=== PATIENT | female | born 2000 | race Caucasian/White ===

== ENCOUNTER → 2021-03-29 11:09 | Outpatient (CLI) | payer MEDICAID, SELFPAY ==
[2021-03-29 10:20] VITALS: BMI 36.5
[2021-03-29 11:38] LABS: Absolute Lymphocyte Count 3.53 X10^3/uL (0.83-4.51); Absolute Neutrophil Count 3.6 X10^3/uL (2.0-7.7); Basophil# 0.06 X10^3/uL; Basophil% 0.8 % (0-1); Eosinophil# 0.12 X10^3/uL; Eosinophils% 1.5 % (0-5); Hematocrit 42.9 % (37-47); Hemoglobin 13.6 g/dL (12.0-15.0); Lymphocyte # 3.53 X10^3/ul (0.83-4.51); Lymphocyte % 45.5 % (19-41); Mean Corp Hgb Conc 31.7 g/dL (32-36); Mean Corpuscular Hgb 26.6 pg (27.0-32.0); Mean Corpuscular Volume 83.8 fL (81-99); Monocyte# 0.45 X10^3/uL; Monocyte% 5.8 % (0-10); NRBC Flagged by Analyzer 0 % (0-5); Neutrophil # 3.57 X10^3/uL (2.7-7.7); Platelet Count 394 K/mm3 (150-450); RBC Distribution Width CV 13.2 % (11.6-14.6); Red Blood Count 5.12 M/mm3 (4.2-5.4); White Blood Count 7.8 K/mm3 (4.4-11.0)
[2021-03-29 11:51] LABS: Hemoglobin A1c 5.1 % (3.8-5.6)
[2021-03-29 11:56] LABS: Cholesterol 185 mg/dL (200); Follicle Stimulating Hormone 7.8 mIU/mL; High Density Lipoprotein 45 mg/dL; Prolactin 12.1 ng/mL; Thyroid Stim Hormone (TSH) 5.44 uIU/mL (0.358-3.74); Triglycerides 60 mg/dL; Very Low Density Lipoprotein 12 mg/dL (5-40)
[2021-03-29 16:02] LABS: Chlamydia Trachomatis by PCR Negative (Negative); Neisserai gonorrhoeae by PCR Negative (Negative); Probe Check PASS; Sample Adequacy Control PASS; Specimen Processing Control PASS
[2021-03-29 16:31] LABS: HIV - WCH Non-Reactive (Nonreactive); Hepatitis B Surface Antigen Non-Reactive (Nonreactive); Hepatitis C Antibody Non-Reactive (Nonreactive); Syphilis Antibodies Non-reactive
[2021-04-02 13:33] LABS: HSV 1 IgG < 0.91 index (0.00-0.90); HSV 2 IgG < 0.91 index (0.00-0.90); Testosterone Free 2.6 pg/mL (Not Estab.)
== END ==
PROVIDERS: PCP Nurse Practitioner Family; Referring Provider Nurse Practitioner Women's Health; Visit Provider Nurse Practitioner Women's Health
DX: N92.6 Irregular menstruation, unspecified (principal); Z20.2 Contact with and (suspected) exposure to infections with a predominantly sexual mode of transmission
CPT/HCPCS: 36415; 80061; 82627; 83001; 83036; 84146; 84402; 84443; 85025; 86695; 86696; 86703; 86780; 86803; 87340; 87491; 87591; 82626

== ENCOUNTER 2021-04-12 18:10 | Emergency (ER) | payer MEDICAID, SELFPAY ==
[2021-03-29 10:20] VITALS: BMI 36.5
[2021-04-12 18:11] VITALS: BP 136/82; PULSE 56; RESP 16; TEMP 36.9; O2SAT 99; BMI 29.7
[2021-04-12 18:26] LABS: Mucous, Urine 0 SEEN /hpf (<or=2+)
[2021-04-12 18:41] LABS: Color, Urine Yellow (Yellow); Glucose, Dipstick Normal (Normal); Ketone-Dipstick Negative (Negative); Leukocyte Esterase-Dipstick 500 /ul (Negative); Nitrite-Dipstick Negative (Negative); Occult Blood-Urine 150 /ul (Negative); Protein-Dipstick 30 mg/dl (Negative); Specific Gravity, Urine 1.025 (1.002-1.030); Urine Bilirubin Dipstick Negative (Negative); Urine Clarity Clear (Clear); Urine Urobilinogen Normal (Normal)
[2021-04-12 18:42] LABS: Bacteria 1+ /hpf (None Seen); Red Blood Cells-Urine 5-10 SEEN /hpf (0-5); Squamous Epithelial Cells - UA 10-25 SEEN /hpf (5-10); White Blood Cells 10-25 SEEN /hpf (0-5)
--- NOTE | 2021-04-12 18:55 | ED.RN ---
PT STATED SHE WANTED TO GO HOME AND LAY DOWN. STATED SHE WOULD COME BACK IF THE PAIN GOT WORSE.
== END 2021-04-12 18:52 | disposition left against medical advice (07) ==
LOC: ED 19:00
PROVIDERS: PCP Nurse Practitioner Family
DX: Z53.21 Procedure and treatment not carried out due to patient leaving prior to being seen by health care provider (principal)
CPT/HCPCS: 81001

== ENCOUNTER 2021-04-12 20:19 | Emergency (ER) | payer MEDICAID, SELFPAY ==
[2021-04-12 18:11] VITALS: BMI 29.7
[2021-04-12 20:22] VITALS: BP 123/70; PULSE 64; RESP 18; TEMP 36.7; O2SAT 100; BMI 29.7
--- NOTE | 2021-04-12 22:12 | US_ITS ---
EXAM: US ABDOMEN LIMITED, GALLBLADDER : 2000 CLINICAL INDICATION: PAIN TECHNIQUE: Real-time ultrasound of the right upper quadrant with image documentation. This report was created using [employer] report [employer]e-games technology. COMPARISON: None. FINDINGS: LIVER: The liver measures 19.6 cm. The liver is slightly increased in echogenicity. There is a hypoechoic area in the liver and the gallbladder fossa possibly representing focal fatty sparing. GALLBLADDER: The gallbladder wall measures 2 mm. No shadowing gallstone. No pericholecystic fluid. Negative sonographic Smith's sign. COMMON BILE DUCT: The common bile duct measures 3 mm. The proximal common bile duct is within normal limits for the patient's age. RIGHT KIDNEY: The right kidney measures 13.0 x 4.5 x 6.7 cm. There is mild to moderate hydronephrosis. US/Gallbladder IMPRESSION: 1. Mild to moderate right-sided hydronephrosis. 2. Fatty infiltration of the liver. at 0002 Reported and signed by: Malick Jo MD Electronically Signed: Malick Jo MD at 0:01 EDT Tel , Service support ,
[2021-04-12] MEDS: 0.9% Normal Saline 1,000 ML 1000 ML IV (22:32)
[2021-04-12] MEDS: Ketorolac 15 MG/ML Vial IV (22:33)
[2021-04-12] MEDS: Morphine 4 MG/ML Syringe IV ×2 (22:33→23:58)
[2021-04-12] MEDS: Ondansetron 4 MG/2 ML Vial IV (22:33)
[2021-04-12 22:34] LABS: Absolute Lymphocyte Count 2.34 X10^3/uL (0.83-4.51); Absolute Neutrophil Count 11.2 X10^3/uL (2.0-7.7); Basophil# 0.04 X10^3/uL; Basophil% 0.3 % (0-1); Eosinophil# 0.02 X10^3/uL; Eosinophils% 0.1 % (0-5); Hematocrit 41.7 % (37-47); Hemoglobin 13.3 g/dL (12.0-15.0); Lymphocyte # 2.34 X10^3/ul (0.83-4.51); Lymphocyte % 16.3 % (19-41); Mean Corp Hgb Conc 31.9 g/dL (32-36); Mean Corpuscular Hgb 26.7 pg (27.0-32.0); Mean Corpuscular Volume 83.7 fL (81-99); Monocyte# 0.67 X10^3/uL; Monocyte% 4.7 % (0-10); NRBC Flagged by Analyzer 0 % (0-5); Neutrophil # 11.23 X10^3/uL (2.7-7.7); Neutrophil % 78.2 % (47-70); Platelet Count 351 K/mm3 (150-450); RBC Distribution Width CV 13.6 % (11.6-14.6); RBC Distribution Width SD 41.5 fl (35.1-43.9); Red Blood Count 4.98 M/mm3 (4.2-5.4); White Blood Count 14.4 K/mm3 (4.4-11.0)
[2021-04-12 22:41] VITALS: BP 131/73; PULSE 49; RESP 12; O2SAT 99
[2021-04-12 22:43] LABS: Internal QC Validated? YES +Cl - CLEAR BKGD; Pregnancy, Serum, hCG Quali. NEGATIVE Negative
[2021-04-12 22:50] LABS: ALB/GLOB Ratio 1.2 RATIO (0.9-2.4); AST(SGOT) 21 U/L (15-37); Alanine Aminotransfer ALT/SGPT 36 U/L (13-56); Albumin, Serum 4.4 g/dL (3.2-5.0); Alkaline Phosphatase 78 U/L (45-117); Anion Gap 7 (5-15); BUN 18 mg/dL (7-18); BUN/Creat Ratio 15.9 RATIO (10-20); Chloride 105 mmol/L (98-107); Creatinine, Serum 1.13 mg/dL (0.55-1.02); EST Glomerular Filtration Rate 65 mL/min (>60); Est Glom Filt Rate - Afr Amer 79 mL/min (>60); Estimated Creatinine Clearance 77.87 ml/min; Globulin 3.7 g/dL (2.2-4.2); Glucose 91 mg/dL (74-106); Lipase 105 U/L (73-393); Potassium 3.5 mmol/L (3.5-5.1); Protein, Total 8.1 g/dL (6.4-8.2); Sodium Level 137 mmol/L (136-145)
--- NOTE | 2021-04-12 23:59 | ED.VIS.GI ---
HPI HPI - GI History of Present Illness Chief Complaint: Abd Pain Informant: patient and parent Narrative Narrative: Patient presents with nausea vomiting right upper quadrant pain. This started Monday after eating a [employer] breakfast sandwich. Is never really gone away. She has been able to intermittently eat between it but she will also oftentimes vomit. She is trying to get fluids in. She has never vomited blood. She is not having diarrhea. In fact she is really not moving her bowels a lot. However she does not feel as though she needs to move her bowels and does not feel constipated. She denies ever having this before. However, she did have an episode of jaundice 2 or so years ago. She was initially told it was due to hepatitis A and then was told that the hepatitis A screens were negative. However he completely recovered. She states she did not have pain or nausea and vomiting with this but her mother thought she did. Patient really does not drink alcohol although she used to drink moderately. No drug use. She has no cough or trouble breathing. Pain is right upper quadrant and does radiate around to her back at times. She has no urinary symptoms although is urinating slightly less likely due to decreased intake. Patient has no history of intra-abdominal surgery. There is evidently some family history of biliary disease. Patient has had irregular menses. She is on meds for this. She is evidently been on these for several months. She is not having any pelvic symptoms [facility] Medical History Asthma Depression H/O gonorrhea Home Medications Sprintec (28) 0.25 mg-35 mcg tablet 1 tab PO QDAY #28 tab NS 03/29/21 [Rx Last Taken Unknown] albuterol 90 mcg/actuation aerosol inhaler mcg INHALATION 03/29/21 [History Last Taken Unknown] biotin 1 mg capsule 1 mg PO DAILY 03/29/21 [History Last Taken Unknown] biotin 10,000 mcg-keratin 100 mg tablet tab PO 03/29/21 [History Last Taken Unknown] famotidine 10 mg tablet 20 mg PO DAILY 03/29/21 [History Last Taken Unknown] naproxen 500 mg tablet 500 mg PO BID 03/29/21 [History Last Taken Unknown] sertraline 50 mg tablet 50 mg PO DAILY 03/29/21 [History Last Taken Unknown] fluticasone propionate [Flovent Diskus] INHALATION 04/12/21 [History Last Taken Unknown] medroxyprogesterone 10 mg PO DAILY 04/12/21 [History Last Taken Unknown] triamcinolone acetonide INTRANASAL 04/12/21 [History Last Taken Unknown] Allergy/AdvReac Type Severity Reaction Status Date / Time No Known Allergies Allergy Unverified 04/12/21 18:13 Family History Father Diabetes Unknown Heart disease Mother GERD (gastroesophageal reflux disease) Grandfather Heart disease Social History household members: significant other current occupational status: employed current occupation: [email or web address] history of recent travel: No sexually active: Yes Smoking Status: Unknown if ever smoked Electronic Cigarette Use: with nicotine alcohol intake: current alcohol intake frequency: a few times a month substance use type: marijuana what type of physical activity do you participate in: none seatbelt use: always do you feel safe at home: Yes additional social history: single ROS ROS ED Constitutional Constitutional ED: Denies chills or fever(s) ENT ENT ED: Denies sore throat Cardiovascular Cardiovascular: Denies chest pain, palpitations or racing heartbeat Respiratory/Chest Respiratory/Chest: Denies cough, dyspnea or sputum Gastrointestinal Gastrointestinal: Reports abdominal pain, nausea and vomiting; Denies constipation, diarrhea or melena Genitourinary Genitourinary ED: Denies dysuria or hematuria Musculoskeletal Musculoskeletal: Denies arthralgias or myalgias Integumentary Denies rash Endocrine Endocrinology: Denies polydipsia or polyuria Hematologic/Lymphatic Hematologic/Lymphatic: Denies easy bleeding or easy bruising EXAM Physical Exam Const Vital Signs: 04/12/21 20:22 04/12/21 22:41 Temperature 98.1 F Temperature Source Temporal Pulse Rate 64 49 L Respiratory Rate 18 12 Blood Pressure 123/70 H 131/73 H Blood Pressure Mean 87 92 Pulse Ox 100 99 Oxygen Delivery Method Room Air Room Air Positive well nourished, well developed and obese Constitutional Narrative: Patient looks mildly uncomfortable General Appearance ED: well developed Nutritional Appearance: obese HEENT Reports dry mucous membranes HEENT Narrative: Mildly dry mucous membranes Mouth ED: Yes dry mucous membranes Mouth: dry mucous membranes Resp normal respiratory effort and clear to auscultation bilaterally Resp Narrative: No change in symptoms with a deep breath Auscultation: Negative for rales, rhonchi or wheezes Cardio regular rate and regular rhythm GI non-distended GI Narrative: Bowel sounds are normal. Her abdomen is not distended. There is some tenderness toward the right upper quadrant. However, Smith sign is not strongly positive. I get no tenderness lower. Auscultation: normoactive bowel sounds Palpation: soft Back/Spine no CVA tenderness Extremity full ROM General Extremety ED: Negative for edema or tenderness General Extremity: Negative for edema Neuro Sensorium / Orientation: alert and oriented to person Psych mental status grossly normal Skin Skin Narrative: Patient has striae on the abdominal wall but no vesicles or rash. Lesions: no lesions Rashes: no rashes MDM MDM MDM Narrative Medical decision making narrative: Blood work does show an elevated white count. Hemoglobin is normal. Creatinine is just minimally elevated. Liver function test lipase are all normal. is negative. Ultrasound does not show any definitive evidence of biliary disease. Although most of her pain is in the front, it does go significantly to her back and flank. There is suspicion of right hydro-. For this reason CT scan is ordered and the patient will be turned over to oncoming physician. Lab Data Attestation: I reviewed the patient's lab results. Labs: Laboratory Results - last 24 hr 04/12/21 04/12/21 04/12/21 22:25 22:25 22:25 WBC 14.4 H RBC 4.98 Hgb 13.3 Hct 41.7 MCV 83.7 MCH 26.7 L MCHC 31.9 L RDW Std Deviation 41.5 RDW Coeff of Haydee 13.6 Plt Count 351 MPV 9.0 Immature Gran % (Auto) 0.400 Neut % (Auto) 78.2 H Lymph % (Auto) 16.3 L [place] % (Auto) 4.7 Eos % (Auto) 0.1 Baso % (Auto) 0.3 Absolute Neuts (auto) 11.2 H Absolute Lymphs (auto) 2.34 Nucleated RBC % 0 Sodium 137 Potassium 3.5 Chloride 105 Carbon Dioxide 25.0 Anion Gap 7 BUN 18 Creatinine 1.13 H Estim Creat Clear Calc 77.87 Est GFR (MDRD) Af Amer 79 Est GFR (MDRD) Non-Af 65 BUN/Creatinine Ratio 15.9 Glucose 91 Calcium 9.0 Total Bilirubin 0.60 AST 21 ALT 36 Alkaline Phosphatase 78 Total Protein 8.1 Albumin 4.4 Globulin 3.7 Albumin/Globulin Ratio 1.2 Lipase 105 Serum , Qual NEGATIVE Discharge Plan Triage Chief Complaint: Abd Pain ED Provider: Baron Decker Dx/Rx/DC Orders Clinical Impression: Kidney stone on right side Instructions: ED Kidney Stone w/ Colic Prescriptions: No Action sertraline [Zoloft] 50 mg tablet 50 mg PO DAILY RF: 0 biotin 1 mg capsule 1 mg PO DAILY RF: 0 Biotin Plus Keratin 10,000-100 mcg-mg tablet PO RF: 0 naproxen [Naprosyn] 500 mg tablet 500 mg PO BID RF: 0 albuterol 90 mcg/actuation aerosol inhalation RF: 0 famotidine 10 mg tablet 20 mg PO DAILY RF: 0 norgestimate-ethinyl estradiol [Sprintec (28)] 0.25-35 mg-mcg tablet 1 tab PO QDAY Qty: 28 RF: 3 medroxyprogesterone 10 mg tablet 10 mg PO DAILY RF: 0 Flovent Diskus 100 mcg/actuation blister with device INHALATION RF: 0 triamcinolone acetonide 55 mcg aerosol,spray INTRANASAL RF: 0 Primary Care Provider: Giuliana Bullard NP Referrals: Raymon Shane MD [STAFF PHYSICIAN] - As Needed Giuliana Bullard NP, [employer] [Primary Care Provider] - Activity Restrictions/Additional Instructions: You have a 3 mm kidney stone that is almost in your bladder. This should pass without difficulty. Plenty of fluids and rest. Strain your urine for the past stone. You do not need to keep it. Motrin for pain. 600 mg 3-4 times a day for no more than 3 to 5 days. May also use Tylenol for pain. Return to the emergency department if feeling a lot worse, intractable pain, fever or intractable vomiting. Disposition Disposition: Home, Self Care Discharge Date/Time: 04/13/21 01:16
--- NOTE | 2021-04-13 00:09 | CT_ITS ---
EXAM: CT ABDOMEN AND PELVIS WITHOUT INTRAVENOUS CONTRAST : 2000 CLINICAL INDICATION: Pain TECHNIQUE: Helically acquired images were obtained of the abdomen and pelvis without intravenous contrast. This CT exam was performed using one or more of the following dose reduction techniques: automated exposure control, adjustment of the mA and/or kV according to patient size, and/or use of iterative reconstruction technique. This report was created using [employer] report generation technology. COMPARISON: None. FINDINGS: LOWER THORAX: Unremarkable. Lung bases are clear. No cardiomegaly. No significant pericardial effusion. ABDOMEN: LIVER: Liver is diffusely decreased in attenuation compatible with fatty infiltration. GALLBLADDER AND BILE DUCTS: Unremarkable. No calcified gallstones. No gallbladder distention or wall edema. No intra- or extrahepatic biliary ductal dilation. PANCREAS: Unremarkable. No focal cystic mass. SPLEEN: Unremarkable. Normal size without focal cystic or solid mass. ADRENALS: Unremarkable. No nodules. KIDNEYS AND URETERS: There is right-sided hydronephrosis and hydroureter. There is a 3 mm stone at the right UVJ. Normal renal size and position. STOMACH AND BOWEL: Unremarkable. No stomach or bowel distention. No focal inflammatory change. PELVIS: APPENDIX: No evidence of acute appendicitis. BLADDER: Unremarkable. REPRODUCTIVE: Unremarkable as visualized. No mass. ABDOMEN and PELVIS: INTRAPERITONEAL SPACE: Unremarkable. No ascites or other fluid collection. No free air. BONES/JOINTS: Unremarkable. No suspicious lytic or blastic abnormality. SOFT TISSUES: Unremarkable. No discrete abdominal or pelvic wall hernia. VASCULATURE: Unremarkable. Abdominal aorta is non-dilated. LYMPH NODES: There are multiple lymph nodes seen within the mesentery which may represent mesenteric adenitis. CT/Abdomen/Pelvis without Cont IMPRESSION: 1. Obstruction of the right collecting system due to a 3 mm stone at the UVJ. There is moderate right-sided hydronephrosis. 2. Multiple lymph nodes in the mesentery possibly representing mesenteric adenitis. Individualized dose optimization techniques were used for this CT. at 0052 Reported and signed by: Malick Jo MD Electronically Signed: Malick Jo MD at 0:50 EDT Tel , Service support ,
[2021-04-13 00:39] LABS: Bacteria 0 SEEN /hpf (None Seen); Mucous, Urine 0 SEEN /hpf (<or=2+); Red Blood Cells-Urine 0 SEEN /hpf (0-5)
[2021-04-13 00:40] VITALS: BP 127/81; PULSE 52; RESP 12; O2SAT 99
[2021-04-13 00:40] LABS: Color, Urine Yellow (Yellow); Glucose, Dipstick Normal (Normal); Ketone-Dipstick 50 mg/dl (Negative); Leukocyte Esterase-Dipstick Negative /ul (Negative); Nitrite-Dipstick Negative (Negative); Occult Blood-Urine Negative /ul (Negative); Protein-Dipstick Negative (Negative); Urine Bilirubin Dipstick Negative (Negative); Urine Clarity Clear (Clear); Urine Urobilinogen Normal (Normal); Urine pH 6.5 (5.0 - 8.0)
[2021-04-13 00:52] LABS: Squamous Epithelial Cells - UA 0-5 SEEN /hpf (5-10)
[2021-04-13 00:53] LABS: White Blood Cells 0-5 SEEN /hpf (0-5)
--- NOTE | 2021-04-13 01:07 | EDS_ITS ---
HPI HPI - GI History of Present Illness Chief Complaint: Abd Pain Detail of Chief Complaint: Patient turned over to me from initial ER physician evaluation. I am to ree Narrative Narrative: Patient turned over to me to reevaluate the patient and check her CAT scan and urinalysis. PFSH PFSH Medical History Asthma Depression H/O gonorrhea Home Medications Sprintec (28) 0.25 mg-35 mcg tablet 1 tab PO QDAY #28 tab NS 03/29/21 [Rx Last Taken Unknown] albuterol 90 mcg/actuation aerosol inhaler mcg INHALATION 03/29/21 [History Last Taken Unknown] biotin 1 mg capsule 1 mg PO DAILY 03/29/21 [History Last Taken Unknown] biotin 10,000 mcg-keratin 100 mg tablet tab PO 03/29/21 [History Last Taken Unknown] famotidine 10 mg tablet 20 mg PO DAILY 03/29/21 [History Last Taken Unknown] naproxen 500 mg tablet 500 mg PO BID 03/29/21 [History Last Taken Unknown] sertraline 50 mg tablet 50 mg PO DAILY 03/29/21 [History Last Taken Unknown] fluticasone propionate [Flovent Diskus] INHALATION 04/12/21 [History Last Taken Unknown] medroxyprogesterone 10 mg PO DAILY 04/12/21 [History Last Taken Unknown] triamcinolone acetonide INTRANASAL 04/12/21 [History Last Taken Unknown] Allergy/AdvReac Type Severity Reaction Status Date / Time No Known Allergies Allergy Unverified 04/12/21 18:13 Family History Father Diabetes Unknown Heart disease Mother GERD (gastroesophageal reflux disease) Grandfather Heart disease Social History household members: significant other current occupational status: employed current occupation: [email or web address] history of recent travel: No sexually active: Yes Smoking Status: Unknown if ever smoked Electronic Cigarette Use: with nicotine alcohol intake: current alcohol intake frequency: a few times a month substance use type: marijuana what type of physical activity do you participate in: none seatbelt use: always do you feel safe at home: Yes additional social history: single EXAM Physical Exam Const Vital Signs: 04/12/21 20:22 04/12/21 22:41 04/13/21 00:40 Temperature 98.1 F Temperature Source Temporal Pulse Rate 64 49 L 52 L Respiratory Rate 18 12 12 Blood Pressure 123/70 H 131/73 H 127/81 H Blood Pressure Mean 87 92 96 Pulse Ox 100 99 99 Oxygen Delivery Method Room Air Room Air Room Air MDM MDM MDM Narrative Medical decision making narrative: Patient turned over to me by the afternoon physician Dr. Alec Decker. Prior history and physical per his note. I did review the patient's labs her white count was 14. Hemoglobin unremarkable. Electrolytes unremarkable normal gap. Creatinine 1.1. Liver enzymes and lipase were normal. The was negative. Urinalysis was negative there is no signs of infection nor blood. Right upper quadrant ultrasound was negative. CT flank study showed a right distal ureter UVJ ureteral stone 3 mm with hydronephrosis and hydroureter. Consistent with her symptoms. Repeat exam patient is doing well at 1:08 AM. I discussed all test results with both her and I believe her mother at bedside. She does not want narcotic medication for home she will use Tylenol and Motrin. Fluids and rest. Strain her urine. Follow-up if not improving. Lab Data Lab results narrative: CBC White count of 14.4. Hemoglobin 13. Electrolytes unremarkable. Normal gap. Creatinine 1.1. Liver enzymes normal. Lipase normal. negative. UA negative. CT flank showing a distal right 3 mm UVJ stone with hydronephrosis and hydroureter. Labs: Laboratory Results - last 24 hr 04/12/21 04/12/21 04/12/21 22:25 22:25 22:25 WBC 14.4 H RBC 4.98 Hgb 13.3 Hct 41.7 MCV 83.7 MCH 26.7 L MCHC 31.9 L RDW Std Deviation 41.5 RDW Coeff of Haydee 13.6 Plt Count 351 MPV 9.0 Immature Gran % (Auto) 0.400 Neut % (Auto) 78.2 H Lymph % (Auto) 16.3 L [place] % (Auto) 4.7 Eos % (Auto) 0.1 Baso % (Auto) 0.3 Absolute Neuts (auto) 11.2 H Absolute Lymphs (auto) 2.34 Nucleated RBC % 0 Sodium 137 Potassium 3.5 Chloride 105 Carbon Dioxide 25.0 Anion Gap 7 BUN 18 Creatinine 1.13 H Estim Creat Clear Calc 77.87 Est GFR (MDRD) Af Amer 79 Est GFR (MDRD) Non-Af 65 BUN/Creatinine Ratio 15.9 Glucose 91 Calcium 9.0 Total Bilirubin 0.60 AST 21 ALT 36 Alkaline Phosphatase 78 Total Protein 8.1 Albumin 4.4 Globulin 3.7 Albumin/Globulin Ratio 1.2 Lipase 105 Serum , Qual NEGATIVE Urine Color Urine Clarity Urine pH Ur Specific [place] Urine Protein Urine Glucose (UA) Urine Ketones Urine Occult Blood Urine Nitrite Urine Bilirubin Urine Urobilinogen Ur Leukocyte Esterase Urine RBC Urine WBC Ur Squamous Epith Cells Urine Bacteria Urine Mucus 04/13/21 00:34 WBC RBC Hgb Hct MCV MCH MCHC RDW Std Deviation RDW Coeff of Haydee Plt Count MPV Immature Gran % (Auto) Neut % (Auto) Lymph % (Auto) [place] % (Auto) Eos % (Auto) Baso % (Auto) Absolute Neuts (auto) Absolute Lymphs (auto) Nucleated RBC % Sodium Potassium Chloride Carbon Dioxide Anion Gap BUN Creatinine Estim Creat Clear Calc Est GFR (MDRD) Af Amer Est GFR (MDRD) Non-Af BUN/Creatinine Ratio Glucose Calcium Total Bilirubin AST ALT Alkaline Phosphatase Total Protein Albumin Globulin Albumin/Globulin Ratio Lipase Serum , Qual Urine Color Yellow Urine Clarity Clear Urine pH 6.5 Ur Specific [place] 1.020 Urine Protein Negative Urine Glucose (UA) Normal Urine Ketones 50 H Urine Occult Blood Negative Urine Nitrite Negative Urine Bilirubin Negative Urine Urobilinogen Normal Ur Leukocyte Esterase Negative Urine RBC 0 SEEN Urine WBC 0-5 SEEN Ur Squamous Epith Cells 0-5 SEEN Urine Bacteria 0 SEEN Urine Mucus 0 SEEN Radiography Diagnostic Testing: Radiology Impression Gallbladder Ultrasound 04/12/21 22:12 IMPRESSION: 1. Mild to moderate right-sided hydronephrosis. 2. Fatty infiltration of the liver. at 0002 Reported and signed by: Malick Jo MD Electronically Signed: Malick Jo MD at 0:01 EDT Tel , Service support , Abdomen/Pelvis CT 04/13/21 00:09 IMPRESSION: 1. Obstruction of the right collecting system due to a 3 mm stone at the UVJ. There is moderate right-sided hydronephrosis. 2. Multiple lymph nodes in the mesentery possibly representing mesenteric adenitis. Individualized dose optimization techniques were used for this CT. at 0052 Reported and signed by: Malick Jo MD Electronically Signed: Malick Jo MD at 0:50 EDT Tel , Service support , Discharge Plan Triage Chief Complaint: Abd Pain ED Provider: Baron Decker Dx/Rx/DC Orders Clinical Impression: Kidney stone on right side Instructions: ED Kidney Stone w/ Colic Prescriptions: No Action sertraline [Zoloft] 50 mg tablet 50 mg PO DAILY RF: 0 biotin 1 mg capsule 1 mg PO DAILY RF: 0 Biotin Plus Keratin 10,000-100 mcg-mg tablet PO RF: 0 naproxen [Naprosyn] 500 mg tablet 500 mg PO BID RF: 0 albuterol 90 mcg/actuation aerosol inhalation RF: 0 famotidine 10 mg tablet 20 mg PO DAILY RF: 0 norgestimate-ethinyl estradiol [Sprintec (28)] 0.25-35 mg-mcg tablet 1 tab PO QDAY Qty: 28 RF: 3 medroxyprogesterone 10 mg tablet 10 mg PO DAILY RF: 0 Flovent Diskus 100 mcg/actuation blister with device INHALATION RF: 0 triamcinolone acetonide 55 mcg aerosol,spray INTRANASAL RF: 0 Primary Care Provider: Giuliana Bullard NP Referrals: Raymon Shane MD [STAFF PHYSICIAN] - As Needed Giuliana Bullard NP, [employer] [Primary Care Provider] - Activity Restrictions/Additional Instructions: You have a 3 mm kidney stone that is almost in your bladder. This should pass without difficulty. Plenty of fluids and rest. Strain your urine for the past stone. You do not need to keep it. Motrin for pain. 600 mg 3-4 times a day for no more than 3 to 5 days. May also use Tylenol for pain. Return to the emergency department if feeling a lot worse, intractable pain, fever or intractable vomiting. Disposition Disposition: Home, Self Care
== END 2021-04-13 01:16 | disposition home or self-care (01) ==
PROVIDERS: Emergency Provider Emergency Medicine; PCP Nurse Practitioner Family
DX: N13.2 Hydronephrosis with renal and ureteral calculous obstruction (principal); E66.9 Obesity, unspecified; F32.9 Major depressive disorder, single episode, unspecified; J45.909 Unspecified asthma, uncomplicated; Z79.899 Other long term (current) drug therapy
CPT/HCPCS: 74176; 76705; 80053; 81001; 83690; 84703; 85025; 96361; 96374; 96375; 96376; 99285; J7030; A4216; J2405

== ENCOUNTER → 2022-03-15 | Outpatient (CLI) | payer MEDICAID, SELFPAY ==
[2022-03-15 18:17] LABS: Glucose Challenge Gest 1H 50g 122 mg/dL (70-140); Hematocrit 34.3 % (37-47); Mean Corp Hgb Conc 32.1 g/dL (32-36); Mean Corpuscular Hgb 26.5 pg (27.0-32.0); Mean Corpuscular Volume 82.7 fL (81-99); Mean Platelet Vol. 9.8 fl (6.2-12.0); Platelet Count 324 K/mm3 (150-450); RBC Distribution Width CV 13.3 % (11.6-14.6); Red Blood Count 4.15 M/mm3 (4.2-5.4); White Blood Count 10.4 K/mm3 (4.4-11.0)
== END | disposition home or self-care (01) ==
LOC: WOBLAB 15:07
PROVIDERS: PCP Nurse Practitioner Family; Visit Provider Obstetrics & Gynecology
DX: Z34.83 Encounter for supervision of other normal pregnancy, third trimester (principal)
CPT/HCPCS: 36415; 82950; 85027

== ENCOUNTER → 2022-04-28 | Outpatient (CLI) | payer MEDICAID, SELFPAY | END | disposition home or self-care (01) | LOC: LABSPEC 04-29 08:41 | PROVIDERS: PCP Nurse Practitioner Family; Visit Provider Obstetrics & Gynecology | DX: Z36.85 Encounter for antenatal screening for Streptococcus B (principal) | CPT/HCPCS: 87081 ==

== ENCOUNTER 2022-05-25 21:40 | Inpatient (IN) | payer MEDICAID, SELFPAY ==
[2022-05-25] VITALS (7 sets, daily range): BP systolic 124–138; BP diastolic 78–93; PULSE 81–114; TEMP 36.4–36.8; O2SAT 97–99; BMI 37.3
[2022-05-25] MEDS: 0.9% Saline Lock 10 ML Syringe IV (19:40)
[2022-05-25 19:58] LABS: Hematocrit 34.5 % (37-47); Hemoglobin 10.3 g/dL (12.0-15.0); Mean Corp Hgb Conc 29.9 g/dL (32-36); Mean Corpuscular Hgb 22.4 pg (27.0-32.0); Mean Corpuscular Volume 75.2 fL (81-99); Mean Platelet Vol. 9.8 fl (6.2-12.0); Platelet Count 347 K/mm3 (150-450); RBC Distribution Width SD 42.9 fl (35.1-43.9); Red Blood Count 4.59 M/mm3 (4.2-5.4); White Blood Count 11.2 K/mm3 (4.4-11.0)
--- NOTE | 2022-05-25 19:59 | PCM.HP.BLA ---
History and Physical Date of Admission: 05/25/22 Chief complaint: Induction of labor for gestational hypertension History present illness: 21-year-old G1, P0 at 40 weeks and 4 days with AMADOR 05/21/2022 arrives with vaginal bleeding found to have elevated blood pressures and headache. Denies nausea vomiting, right upper quadrant pain. Patient states good movement. Central history: G1: Current Past medical history: None Medications: vitamin Past surgical history: None Social history: Former smoker, denies alcohol or drug use Allergies: No known drug allergies Family history: Denies history DVT or PE Review of systems: Besides above pertinent positives a full review of systems was performed and found to be negative Physical exam: Vitals: Blood pressure 140/93 pulse 73 temperature 97.9 ?F General: Normal-appearing no acute distress none HEENT: Normocephalic/atraumatic no cervical lymphadenopathy, pupils equal round and reactive to light Cardiac/respiratory: No successor muscles, nonlabored breathing Abdomen: Soft, nontender, negative right upper quadrant pain Extremities: No peripheral edema normal peripheral pulses. Negative clonus bilaterally Psych: Normal affect normal demeanor nonpressured speech Labs: White blood cell count 11.2 hemoglobin 10.3 hematocrit 34.5% platelets 347. Creatinine 0.63. Total bilirubin 0.3. AST 14 ALT 13. LDH 161. Urine protein creatinine ratio 0.2. Blood type a positive antibody negative Assessment plan: 21-year-old at 40 weeks and 4 days arrived to triage with elevated blood pressures and headache that resolved with Tylenol. Remained asymptomatic but with isolated elevated blood pressures admitted for induction of labor and as of now diagnosed with gestational hypertension based on blood pressures nonsevere greater than 4 hours apart. Labs within normal limits. Remains asymptomatic. We will continue to monitor for severe symptoms and blood pressures and treat appropriately. Cytotec induction. GBS negative. Anesthesia to see.
[2022-05-25] MEDS: Acetaminophen 500 MG Tablet 1000 MG PO (20:00)
[2022-05-25 20:24] LABS: ALB/GLOB Ratio 0.6 RATIO (0.9-2.4); AST(SGOT) 12 U/L (15-37); Alanine Aminotransfer ALT/SGPT 12 U/L (13-56); Albumin, Serum 2.5 g/dL (3.2-5.0); Alkaline Phosphatase 162 U/L (45-117); Anion Gap 9 (5-15); BUN 9 mg/dL (7-18); BUN/Creat Ratio 14.9 RATIO (10-20); Chloride 108 mmol/L (98-107); EST Glomerular Filtration Rate 133 mL/min (>60); Est Glom Filt Rate - Afr Amer 161 mL/min (>60); Estimated Creatinine Clearance 150.88 ml/min; Glucose 98 mg/dL (74-106); LDH 161 U/L (84-246); Potassium 3.8 mmol/L (3.5-5.1); Protein, Total 6.5 g/dL (6.4-8.2); Sodium Level 140 mmol/L (136-145)
[2022-05-25 20:37] LABS: Mucous, Urine 0 SEEN /hpf (<or=2+); Red Blood Cells-Urine 0 SEEN /hpf (0-5)
[2022-05-25 20:43] LABS: Color, Urine Yellow (Yellow); Glucose, Dipstick Normal (Normal); Ketone-Dipstick Negative (Negative); Leukocyte Esterase-Dipstick 100 /ul (Negative); Nitrite-Dipstick Negative (Negative); Occult Blood-Urine 250 /ul (Negative); Protein-Dipstick 15 mg/dl (Negative); Urine Bilirubin Dipstick Negative (Negative); Urine Clarity Sl. Cloudy (Clear); Urine Urobilinogen Normal (Normal)
[2022-05-25 20:57] LABS: Bacteria 1+ /hpf (None Seen); Squamous Epithelial Cells - UA 0-5 SEEN /hpf (5-10); White Blood Cells 0-5 SEEN /hpf (0-5)
[2022-05-25 21:22] LABS: Protein:Creat Ratio 204 mg/g CRE (0-200)
[2022-05-25 21:32] LABS: AST(SGOT) 14 U/L (15-37); Alanine Aminotransfer ALT/SGPT 13 U/L (13-56); Creatinine, Serum 0.63 mg/dL (0.55-1.02); EST Glomerular Filtration Rate 127 mL/min (>60); Est Glom Filt Rate - Afr Amer 154 mL/min (>60); Estimated Creatinine Clearance 143.69 ml/min; Uric Acid 4.3 mg/dL (2.6-6.0)
[2022-05-25] MEDS: miSOPROStol 25 MCG TABLET VAGINAL (23:04)
[2022-05-26] VITALS (48 sets, daily range): BP systolic 121–142; BP diastolic 69–93; PULSE 56–93; TEMP 36.2–37.6; O2SAT 92–100
[2022-05-26] MEDS: miSOPROStol 25 MCG TABLET VAGINAL ×2 (03:09→08:56)
--- NOTE | 2022-05-26 08:20 | PN.OBGYN_ITS ---
Subjective Subjective No overnight complaints. Denies headache, visual change, chest pain, shortness of breath, nausea vomiting, right upper quadrant pain. Patient does not feel contractions. Objective Data Objective Data Vital Signs: Vital Signs Temp Pulse BP Pulse Ox 97.9 F 86 135/72 H 97 05/26/22 07:28 05/26/22 08:12 05/26/22 08:12 05/26/22 03:02 Weight: 245 lb 6 oz Body Mass Index (BMI) 37.3 Lab / Micro Data Result Diagrams: 05/25/22 19:40 05/25/22 19:40 Labs: Laboratory Results - last 24 hr 05/25/22 19:40: WBC 11.2 H, RBC 4.59, Hgb 10.3 L, Hct 34.5 L, MCV 75.2 L, MCH 22.4 L, MCHC 29.9 L, RDW Std Deviation 42.9, RDW Coeff of [place] 16.0 H, Plt Count 347, MPV 9.8 05/25/22 19:40: Sodium 140, Potassium 3.8, Chloride 108 H, Carbon Dioxide 23.0, Anion Gap 9, BUN 9, Creatinine 0.60, Estim Creat Clear Calc 150.88, Est GFR (MDRD) Af Amer 161, Est GFR (MDRD) Non-Af 133, BUN/Creatinine Ratio 14.9, Glucose 98, Calcium 9.0, Total Bilirubin 0.30, AST 12 L, ALT 12 L, Alkaline Ph osphatase 162 H, Lactate Dehydrogenase 161, Total Protein 6.5, Albumin 2.5 L, Globulin 4.0, Albumin/Globulin Ratio 0.6 L 05/25/22 19:40: Blood Type A POSITIVE, Antibody Screen NEGATIVE 05/25/22 19:40: Creatinine 0.63, Estim Creat Clear Calc 143.69, Est GFR (MDRD) Af Amer 154, Est GFR (MDRD) Non-Af 127, Uric Acid 4.3, AST 14 L, ALT 13 05/25/22 20:10: Urine Color Yellow, Urine Clarity Sl. Cloudy, Urine pH 6.0, Ur Specific [place] 1.010, Urine Protein 15 H, Urine Glucose (UA) Normal, Urine Ketones Negative, Urine Occult Blood 250 H, Urine Nitrite Negative, Urine Bilirubin Negative, Urine Urobilinogen Normal, Ur Leukocyte Esterase 100 H, Urine RBC 0 SEEN, Urine WBC 0-5 SEEN, Ur Squamous Epith Cells 0-5 SEEN, Urine Bacteria 1+, Urine Mucus 0 SEEN 05/25/22 20:10: U Random Total Protein 11.0, Urine Creatinine 53.80, Protein/Creatinin Ratio 204 H Micro: Microbiology 05/25/22 22:00 Nasal Secretion SARS-CoV-2 Antigen (Rapid) - Final Physical Exam Const alert, oriented x3, no apparent distress, average body habitus, healthy appearing and well nourished HEENT normocephalic and moist oral mucous membranes Eyes PERRL Neck full ROM Resp normal respiratory effort, no retractions and no use of accessory muscles GI GI Narrative: Soft, nontender, gravid. Negative right upper quadrant pain Extremity normal to inspection, full ROM and no clubbing, cyanosis or edema Extremity Narrative: Negative clonus bilaterally Neuro moves all extremities and no focal motor deficits Psych mental status grossly normal, affect normal, speech normal and activity/motor behavior normal Assessment & Plan (1) : PLAN: Patient seen and examined. Remains asymptomatic. Blood pressure is now diagnostic of gestational hypertension. Continue Cytotec induction will transi tion to Pitocin
[2022-05-26] MEDS: 0.9% Saline Lock 10 ML Syringe IV (13:44)
[2022-05-26] MEDS: Lactated Ringers 1,000 ML 50 ML IV (13:46)
[2022-05-26] MEDS: Oxytocin 30 units/NS 500 ml 30 UNITS/500 ML IV.SOLN IV (14:07)
--- NOTE | 2022-05-26 17:39 | PN.OBGYN_ITS ---
Subjective Subjective Feeling some contractions otherwise comfortable Objective Data Objective Data Vital Signs: Vital Signs Temp Pulse BP Pulse Ox 97.2 F L 77 134/86 H 99 05/26/22 16:00 05/26/22 16:01 05/26/22 16:01 05/26/22 10:09 Weight: 245 lb 6 oz Body Mass Index (BMI) 37.3 Intake & Output: Intake and Output for Last 24 Hours 05/24/22 05/25/22 05/26/22 23:59 23:59 23:59 Intake Total 16.24 / 16.24 Balance 16.24 / 16.24 Lab / Micro Data Result Diagrams: 05/25/22 19:40 05/25/22 19:40 Labs: Laboratory Results - last 24 hr 05/25/22 19:40: WBC 11.2 H, RBC 4.59, Hgb 10.3 L, Hct 34.5 L, MCV 75.2 L, MCH 22.4 L, MCHC 29.9 L, RDW Std Deviation 42.9, RDW Coeff of [place] 16.0 H, Plt Count 347, MPV 9.8 05/25/22 19:40: Sodium 140, Potassium 3.8, Chloride 108 H, Carbon Dioxide 23.0, Anion Gap 9, BUN 9, Creatinine 0.60, Estim Creat Clear Calc 150.88, Est GFR (MDRD) Af Amer 161, Est GFR (MDRD) Non-Af 133, BUN/Creatinine Ratio 14.9, Glucose 98, Calcium 9.0, Total Bilirubin 0.30, AST 12 L, ALT 12 L, Alkaline Phosphatase 162 H, Lactate Dehydrogenase 161, Total Protein 6.5, Albumin 2.5 L, Globulin 4.0, Albumin/Globulin Ratio 0.6 L 05/25/22 19:40: Blood Type A POSITIVE, Antibody Screen NEGATIVE 05/25/22 19:40: Creatinine 0.63, Estim Creat Clear Calc 143.69, Est GFR (MDRD) Af Amer 154, Est GFR (MDRD) Non-Af 127, Uric Acid 4.3, AST 14 L, ALT 13 05/25/22 20:10: Urine Color Yellow, Urine Clarity Sl. Cloudy, Urine pH 6.0, Ur Specific [place] 1.010, Urine Protein 15 H, Urine Glucose (UA) Normal, Urine Ketones Negative, Urine Occult Blood 250 H, Urine Nitrite Negative, Urine Bilirubin Negative, Urine Urobilinogen Normal, Ur Leukocyte Esterase 100 H, Urine RBC 0 SEEN, Urine WBC 0-5 SEEN, Ur Squamous Epith Cells 0-5 SEEN, Urine Bacteria 1+, Urine Mucus 0 SEEN 05/25/22 20:10: U Random Total Protein 11.0, Urine Creatinine 53.80, Protein/Creatinin Ratio 204 H Micro: Microbiology 05/25/22 22:00 Nasal Secretion SARS-CoV-2 Antigen (Rapid) - Final Physical Exam Const alert, oriented x3, no apparent distress, average body habitus, healthy appearing and well nourished HEENT normocephalic and moist oral mucous membranes Eyes PERRL Neck full ROM Resp normal respiratory effort, no retractions and no use of accessory muscles GI GI Narrative: Soft, nontender, good Narrative: Cervical exam: /-3. AROM thick meconium. IUPC and FSE placed Extremity normal to inspection, full ROM and no clubbing, cyanosis or edema Skin no rashes or lesions noted and no wounds Neuro moves all extremities and no focal motor deficits Psych mental status grossly normal, affect normal, speech normal and activity/motor behavior normal Assessment & Plan (1) : PLAN: Patient seen and examined. AROM thick meconium. Educated patient on meconium, director of home health services to be at delivery. Continue titrate Pitocin
[2022-05-26] MEDS: LACTATED RINGERS 500 ML 999 ML IV ×3 (17:53→22:20)
[2022-05-26] MEDS: fentaNYL-bupivacaine (epidural) 100 ML BAG EPIDURAL (20:22)
[2022-05-27] VITALS (27 sets, daily range): BP systolic 101–131; BP diastolic 50–86; PULSE 56–218; RESP 16–20; TEMP 36.2–37.3; O2SAT 96–100
[2022-05-27] MEDS: Lactated Ringers 1,000 ML 200 ML IV (00:07)
[2022-05-27] MEDS: Acetaminophen 500 MG Tablet PO (00:17)
[2022-05-27] MEDS: fentaNYL-bupivacaine (epidural) 100 ML BAG EPIDURAL (01:00)
[2022-05-27] MEDS: Ondansetron 4 MG/2 ML Vial IV (03:15)
[2022-05-27] MEDS: Oxytocin 30 units/NS 500 ml 30 UNITS/500 ML IV.SOLN 334 UNITS IV (04:12)
[2022-05-27] MEDS: Methylergonovine 0.2 MG/ML Ampul IM (04:14)
--- NOTE | 2022-05-27 04:26 | OP.PCM_ITS ---
Vaginal Delivery Findings Description of Procedure: Normal spontaneous vaginal delivery of a viable female , vertex SAFIA. Head and shoulders delivered with ease. Cord cut clamped. Baby handed off to patient. Placenta delivered via cord traction and fundal massage. Initial atony noticed, Methergine IM given and Pitocin IV. Firm uterus noted. First- degree midline perineal laceration noted and repaired in typical fashion. EBL 400 cc Apgars 8/9 signals intelligence analyst present for delivery.
[2022-05-27] MEDS: 0.9% Saline Lock 10 ML Syringe IV (06:47)
[2022-05-27] MEDS: Acetaminophen 500 MG Tablet 1000 MG PO ×2 (08:17→21:34)
[2022-05-27] MEDS: Ibuprofen 600 MG Tablet PO (18:02)
[2022-05-28 00:15] VITALS: BP 116/68; PULSE 81; RESP 16; TEMP 36.5; O2SAT 97
--- NOTE | 2022-05-28 00:46 | PN.OBGYN_ITS ---
Subjective Subjective Soreness controlled with Motrin and Tylenol. Lochia minimal. Working on breast-feeding. Objective Data Objective Data Vital Signs: Vital Signs Temp Pulse Resp BP Pulse Ox O2 Del Method 97.2 F L 89 16 128/81 H 97 Room Air 05/27/22 15:24 05/27/22 15:24 05/27/22 15:24 05/27/22 15:24 05/27/22 15:24 05/27/22 15:24 Oxygen Delivery Method Room Air Weight: 111.3 kg Body Mass Index (BMI) 37.3 Intake & Output: Intake and Output for Last 24 Hours 05/26/22 05/27/22 05/28/22 23:59 23:59 23:59 Intake Total 2914.34 / 3138.51 1564.57 / 1564.57 Output Total 450 / 450 2200 / 2200 Balance 2464.34 / 2688.51 -635.43 / -635.43 Lab / Micro Data Result Diagrams: 05/25/22 19:40 05/25/22 19:40 Micro: Microbiology 05/25/22 22:00 Nasal Secretion SARS-CoV-2 Antigen (Rapid) - Final Physical Exam Const alert, oriented x3 and no apparent distress HEENT normocephalic Head and Scalp: atraumatic Neck full ROM Resp normal respiratory effort Cardio regular rate GI normal to inspection, nondistended, normoactive bowel sounds GI Narrative: Uterus 2 cm below umbilicus Back/Spine normal ROM Extremity normal to inspection Extremity Narrative: Minimal pedal edema Neuro no focal motor deficits and no sensory deficits noted Psych mental status grossly normal and affect normal Assessment & Plan (1) Vaginal delivery: PLAN: day 1 status post . Complicated by gestational hype rtension, blood pressure since delivery have been within normal limits. Asymptomatic. Discussed blood pressure monitoring. Will consider home-going this evening if blood pressures continue to be low normal. Otherwise discharge home tomorrow. (2) Gestational hypertension:
--- NOTE | 2022-05-28 00:47 | DCINST_ITS ---
Discharge Instructions Diet Discharge Diet: No restrictions Activity Discharge Activity: Return to Normal Activity and May Shower May resume sexual activity in: 4-6 weeks Weight Bearing Status: Weight bearing as tolerated Lifting Restrictions: No greater than 25 pounds Dressing / Incision Call your doctor if you observe: Fever of 101 or Higher, Change in Color, Inability to urinate, Using more than 1 pad per hour, Shortness of breath, Dizziness, Swelling in the ankles, Chest pain and Calf discomfort Follow Up Care Please Follow Up With: Eagle Nunez MD When: 1 week RN BP check and 4 to 6-week visit Test Results: Test results from this visit will be discussed in further detail at your follow- up appointment, if applicable. Discharge Plan Admission Admit Date/Time: 05/25/22 21:40 Primary Reason for Your Visit: Vaginal delivery Attending Provider: Eagle Nunez Primary Care Provider: Giuliana Bullard NP Discharge Orders/Prescriptions Prescriptions: No Action 1 mg Tablet 1 tab PO DAILY Referrals / Follow Up: Giuliana Bullard NP, [facility] [employer] [Primary Care Provider] - Disposition Disposition (needs filled in before D/C Order can be placed): Home, Self Care
[2022-05-28] MEDS: Ibuprofen 600 MG Tablet PO ×2 (02:00→15:54)
[2022-05-28 06:09] VITALS: BP 119/74; PULSE 73; RESP 16; TEMP 36.2; O2SAT 99
[2022-05-28 08:22] VITALS: BP 108/66; PULSE 76; RESP 16; TEMP 36.2; O2SAT 98
[2022-05-28 11:45] VITALS: BP 99/72; PULSE 72; RESP 16; TEMP 36.5; O2SAT 100
== END 2022-05-28 18:00 | disposition home or self-care (01) | DRG 560 ==
LOC: WPOUT 21:42 → WP 21:42
PROVIDERS: Admitting Provider Obstetrics & Gynecology; PCP Nurse Practitioner Family; Visit Provider Obstetrics & Gynecology
DX: O13.4 Gestational [pregnancy-induced] hypertension without significant proteinuria, complicating childbirth (principal); Z37.0 Single live birth; O70.0 First degree perineal laceration during delivery; O77.0 Labor and delivery complicated by meconium in amniotic fluid; Z3A.40 40 weeks gestation of pregnancy
CPT/HCPCS: 59025; 59050; 80053; 81001; 82565; 82570; 83615; 84156; 84450; 84460; 84550; 85027; 86850; 86900; 86901; 87426; 99218; J7120; A4216; G0378; J2405

== ENCOUNTER 2024-09-14 11:16 | Emergency (ER) | payer MEDICAID, SELFPAY ==
[2024-09-14 11:20] VITALS: BP 143/107; PULSE 83; RESP 16; TEMP 37.1; O2SAT 100; BMI 24.0
[2024-09-14 12:13] LABS: Absolute Lymphocyte Count 2.54 X10^3/uL (0.83-4.51); Absolute Neutrophil Count 8.5 X10^3/uL (2.0-7.7); Basophil# 0.05 X10^3/uL; Basophil% 0.4 % (0-1); Eosinophil# 0.02 X10^3/uL; Eosinophils% 0.2 % (0-5); Hematocrit 45.4 % (37-47); Hemoglobin 14.7 g/dL (12.0-15.0); Lymphocyte # 2.54 X10^3/ul (0.83-4.51); Lymphocyte % 21.7 % (19-41); Mean Corp Hgb Conc 32.4 g/dL (32-36); Mean Corpuscular Hgb 27.3 pg (27.0-32.0); Mean Corpuscular Volume 84.2 fL (81-99); Mean Platelet Vol. 9.4 fl (6.2-12.0); Monocyte# 0.54 X10^3/uL; Monocyte% 4.6 % (0-10); NRBC Flagged by Analyzer 0 % (0-5); Neutrophil # 8.48 X10^3/uL (2.7-7.7); Neutrophil % 72.7 % (47-70); Platelet Count 384 K/mm3 (150-450); RBC Distribution Width CV 13.7 % (11.6-14.6); RBC Distribution Width SD 42.1 fl (35.1-43.9); Red Blood Count 5.39 M/mm3 (4.2-5.4); White Blood Count 11.7 K/mm3 (4.4-11.0)
[2024-09-14] MEDS: 0.9% Normal Saline (1000mL) 1,000 ML 999 ML IV (12:14)
[2024-09-14] MEDS: Ondansetron 4 MG/2 ML Vial IV (12:14)
--- NOTE | 2024-09-14 12:19 | EDS_ITS ---
HPI History of Present Illness Chief Complaint: Nausea/Vomiting Informant: patient Narrative Narrative: Patient is a G2, P1 female presenting with worsening nausea and vomiting. She is proximately 8 weeks last menstrual period reported July 22. She is at positive home test. She is not been seen for this yet but is patient of [facility] and has an appointment scheduled. She notes that her last was complicated by preeclampsia but she had vaginal delivery. She is presenting today with worsening nausea and vomiting which started 2 days ago. Is usually not been able to keep anything down. She denies any blood in her vomit. She states her stools been loose but not consistent with a gastroenteritis more like for this distress stools). She states that she is feeling generally weak and lightheaded. She spoke to the nurse on-call yesterday who recommend she came to the ER but she tried states she could keep some substance down so she did not come in until her symptoms worsened again today. She denies any vaginal bleeding. She does report some mild abdominal cramping but attributes it to all of the vomiting. States she generally feels weak and does have some myalgias. No sick contacts reported. No fevers or chills. No other complaints or concerns at this time. [facility] Medical History Anxiety Depression Asthma H/O gonorrhea Home Medications ?Medication ?Instructions ?Recorded ?Last Taken ?Type utlptepi-iay-[id number] 1 mg 1 tab PO DAILY 05/25/22 05/25/22 08:00 History tablet ondansetron 4 mg disintegrating 4 mg PO Q8H PRN PRN Nausea #14 tabs 09/14/24 Unknown Rx tablet promethazine 25 mg rectal [address] Q6H PRN nausea and 09/14/24 Unknown Rx suppository vomiting #12 ea Allergy/AdvReac Type Severity Reaction Status Date / Time No Known Allergies Allergy Verified 09/14/24 11:20 Family History Father Diabetes Unknown Heart disease Mother GERD (gastroesophageal reflux disease) Grandfather Heart disease Social History household members: significant other current occupational status: employed current occupation: [employer] history of recent travel: No sexually active: Yes Smoking Status: Former smoker Electronic Cigarette Use: with nicotine alcohol intake: current alcohol intake frequency: a few times a month substance use type: marijuana what type of physical activity do you participate in: none seatbelt use: always do you feel safe at home: Yes additional social history: single ROS ROS ED Constitutional Constitutional ED: Denies chills or fever(s) Cardiovascular Cardiovascular: Denies chest pain or palpitations Respiratory/Chest Respiratory/Chest: Denies cough Gastrointestinal Gastrointestinal: Reports abdominal pain, diarrhea, nausea and vomiting Genitourinary Genitourinary ED: Reports LMP (females 10-50) Details: Comment: (07/22/24); Denies dysuria, hematuria or urinary frequency Musculoskeletal Musculoskeletal: Reports myalgias; Denies arthralgias Integumentary Denies rash Neurologic Neurologic: Reports weakness; Denies headache(s) or paresthesias EXAM Physical Exam Const Vital Signs: 09/14/24 11:20 09/14/24 13:16 Temperature 98.7 F Temperature Source Oral Pulse Rate 83 54 L Respiratory Rate 16 18 Blood Pressure 143/107 H Blood Pressure Mean 119 Pulse Ox 100 99 Oxygen Delivery Method Room Air Room Air Positive well nourished and well developed General Appearance ED: well developed and NAD HEENT Reports dry mucous membranes Mouth ED: Yes dry mucous membranes Mouth: dry mucous membranes Eyes PERRL Neck supple Chest Wall inspection of chest normal and palpation of chest normal Resp normal respiratory effort and clear to auscultation bilaterally Cardio regular rate, regular rhythm and no murmurs GI normal to inspection, nondistended, normoactive bowel sounds and non-tender Auscultation: normoactive bowel sounds Back/Spine no CVA tenderness Extremity normal to inspection Neuro oriented x3 Sensorium / Orientation: alert Motor Exam: Negative for general weakness Psych mental status grossly normal Skin no rashes or lesions noted and no wounds MDM MDM MDM Narrative Medical decision making narrative: Patient 24-year-old female presented with nausea and vomiting early . She notes a pretty severe morning sickness in her prior as well. Concern for dehydration.. She reports some mild abdominal pain but attributes it more to the vomiting and dehydration. She denies any pelvic pain/vaginal bleeding. Low suspicion for ectopic . hCG quant is 10,396. Bedside ultrasound shows an intrauterine gestational sac however not able to see a pole or heart tones at this time. Bilateral ovaries visualized with no masses. No free fluid appreciated. Suspect this is just early . Given that she is not having pelvic pain or vaginal bleeding I do not think requires a formal ultrasound for rule out ectopic . Is given signs and symptoms with return precautions. Abdomen otherwise soft and nontender. I do not think she requires CT abdomen pelvis at this time. She has a mild leukocytosis 11.7 which is suspect is reactive. No left shift. BMP and lipase normal. Urinalysis shows 150 ketones consistent with dehydration but does show 3+ bacteria is not consistent with infection. There are 3+ bacteria so we will send for culture. She denies any dysuria. Will defer treatment at this time and wait on culture. Patient reevaluated. She states she is feeling better. She remains with a steady gait. She is drinking and eating crackers in the emergency room. Will be discharged home to follow-up with her [facility]. We given a refill for Zofran and also given a prescription for rectal Phenergan. Given return precautions. She verbalized given understands plan. Discharged home in stable condition. Lab Data Attestation: I reviewed the patient's lab results. Labs: Laboratory Results - last 24 hr 09/14/24 09/14/24 09/14/24 12:00 12:14 13:50 WBC 11.7 H RBC 5.39 Hgb 14.7 Hct 45.4 MCV 84.2 MCH 27.3 MCHC 32.4 RDW Std Deviation 42.1 RDW Coeff of [place] 13.7 Plt Count 384 MPV 9.4 Immature Gran % (Auto) 0.400 Neut % (Auto) 72.7 H Lymph % (Auto) 21.7 [place] % (Auto) 4.6 Eos % (Auto) 0.2 Baso % (Auto) 0.4 Absolute Neuts (auto) 8.5 H Absolute Lymphs (auto) 2.54 Nucleated RBC % 0 Sodium 139 Potassium 3.7 Chloride 108 H Carbon Dioxide 23.0 Anion Gap 8 BUN 8 Creatinine 0.72 Estim Creat Clear Calc 127.00 Est GFR (MDRD) Af Amer 128 Est GFR (MDRD) Non-Af 106 BUN/Creatinine Ratio 11.0 Glucose 100 Calcium 9.5 Magnesium 2.1 Total Bilirubin 0.60 AST 26 ALT 44 Alkaline Phosphatase 84 Total Protein 8.1 Albumin 4.0 Globulin 4.1 Albumin/Globulin Ratio 1.0 Lipase 16 HCG, Quant 82638 H Urine Color Yellow Urine Clarity Clear Urine pH 6.0 Ur Specific [place] 1.020 Urine Protein 15 H Urine Glucose (UA) Normal Urine Ketones 150 A* Urine Occult Blood Negative Urine Nitrite Negative Urine Bilirubin Negative Urine Urobilinogen Normal Ur Leukocyte Esterase 25 H Urine RBC 0 SEEN Urine WBC 0-5 SEEN Ur Squamous Epith Cells 0-5 SEEN Urine Bacteria 3+ Urine Mucus 2+ Discharge Plan Triage Chief Complaint: Nausea/Vomiting ED Provider: Juana Correa Dx/Rx/DC Orders Clinical Impression: Dehydration, Nausea and vomiting during Instructions: ED Hyperemesis Gravidarum Prescriptions: New ondansetron 4 mg tablet,disintegrating 4 mg PO Q8H PRN PRN (Reason: Nausea) Qty: 14 0RF promethazine 25 mg suppository [address] Q6H PRN (Reason: nausea and vomiting) Qty: 12 0RF No Action 1 mg Tablet 1 tab PO DAILY Primary Care Provider: Giuliana Bullard NP Referrals: Sarah Youngblood MD [Med Staff - Active Staff] - Giuliana Bullard FIRE CONTROL TECHNICIAN B, [employer]NICIAN [employer] [Primary Care Provider] - Activity Restrictions/Additional Instructions: Your urine showed signs of dehydration. Will send off for culture but at this time I do not think you have a urinary tract infection. Your lab work is otherwise largely normal. Please follow-up with your [facility]. If you develop vaginal bleeding or significant pelvic pain/cramping please return to the emergency room. You have been given a prescription for 2 different nausea medicines, one of them is a suppository to take if you cannot tolerate anything by mouth. Try to eat small frequent meals and push fluids with small frequent sips. Print Language: Slovenian Disposition Disposition: Home, Self Care
[2024-09-14 12:32] LABS: AST(SGOT) 26 U/L (15-37); Alanine Aminotransfer ALT/SGPT 44 U/L (13-56); Alkaline Phosphatase 84 U/L (45-117); Anion Gap 8 (5-15); BUN 8 mg/dL (7-18); Calcium,Total 9.5 mg/dL (8.5-10.1); Chloride 108 mmol/L (98-107); Creatinine, Serum 0.72 mg/dL (0.55-1.02); EST Glomerular Filtration Rate 106 mL/min (>60); Est Glom Filt Rate - Afr Amer 128 mL/min (>60); Globulin 4.1 g/dL (2.2-4.2); Glucose 100 mg/dL (74-106); Lipase 16 U/L (13-75); Magnesium 2.1 mg/dL (1.6-2.6); Potassium 3.7 mmol/L (3.5-5.1); Protein, Total 8.1 g/dL (6.4-8.2); Sodium Level 139 mmol/L (136-145)
[2024-09-14 13:04] LABS: hCG Titer Quant., Serum 10396 mIU/mL (1-3)
[2024-09-14 13:16] VITALS: PULSE 54; RESP 18; O2SAT 99
[2024-09-14] MEDS: Metoclopramide 10 MG/2 ML Vial 2.5 MG IV (13:16)
[2024-09-14 14:00] LABS: Color, Urine Yellow (Yellow); Glucose, Dipstick Normal (Normal); Leukocyte Esterase-Dipstick 25 /ul (Negative); Nitrite-Dipstick Negative (Negative); Occult Blood-Urine Negative /ul (Negative); Protein-Dipstick 15 mg/dl (Negative); Red Blood Cells-Urine 0 SEEN /hpf (0-5); Urine Bilirubin Dipstick Negative (Negative); Urine Clarity Clear (Clear); Urine Urobilinogen Normal (Normal)
[2024-09-14 14:01] LABS: Ketone-Dipstick 150 mg/dl (Negative)
[2024-09-14 14:16] LABS: Bacteria 3+ /hpf (None Seen); Mucous, Urine 2+ /hpf (<or=2+); Squamous Epithelial Cells - UA 0-5 SEEN /hpf (5-10); White Blood Cells 0-5 SEEN /hpf (0-5)
== END 2024-09-14 14:37 | disposition home or self-care (01) ==
PROVIDERS: Emergency Provider Emergency Medicine; PCP Nurse Practitioner Family; Visit Provider Emergency Medicine
DX: O21.9 Vomiting of pregnancy, unspecified (principal); Z87.891 Personal history of nicotine dependence; O99.281 Endocrine, nutritional and metabolic diseases complicating pregnancy, first trimester; E86.0 Dehydration; Z3A.08 8 weeks gestation of pregnancy; O99.891 Other specified diseases and conditions complicating pregnancy; J45.909 Unspecified asthma, uncomplicated; O99.511 Diseases of the respiratory system complicating pregnancy, first trimester
CPT/HCPCS: 80053; 81001; 83690; 83735; 84702; 85025; 87086; 87088; 87631; 96361; 96374; 96375; 99282; A4216; J2405

== ENCOUNTER 2024-09-24 14:44 | Emergency (ER) | payer SELFPAY ==
[2024-09-24 14:45] VITALS: BP 122/72; PULSE 99; RESP 18; TEMP 36.2; O2SAT 100; BMI 37.3
[2024-09-24 15:55] LABS: Absolute Lymphocyte Count 2.12 X10^3/uL (0.83-4.51); Absolute Neutrophil Count 12.9 X10^3/uL (2.0-7.7); Basophil# 0.06 X10^3/uL; Basophil% 0.4 % (0-1); Hemoglobin 14.9 g/dL (12.0-15.0); Lymphocyte # 2.12 X10^3/ul (0.83-4.51); Lymphocyte % 13.5 % (19-41); Mean Corp Hgb Conc 33.1 g/dL (32-36); Mean Corpuscular Hgb 27.4 pg (27.0-32.0); Mean Corpuscular Volume 82.7 fL (81-99); Mean Platelet Vol. 9.4 fl (6.2-12.0); Monocyte# 0.58 X10^3/uL; Monocyte% 3.7 % (0-10); NRBC Flagged by Analyzer 0 % (0-5); Neutrophil # 12.85 X10^3/uL (2.7-7.7); Platelet Count 419 K/mm3 (150-450); RBC Distribution Width CV 13.6 % (11.6-14.6); RBC Distribution Width SD 40.3 fl (35.1-43.9); Red Blood Count 5.44 M/mm3 (4.2-5.4); White Blood Count 15.7 K/mm3 (4.4-11.0)
--- NOTE | 2024-09-24 16:00 | ED.VIS.GI ---
HPI HPI - GI History of Present Illness Chief Complaint: Nausea/Vomiting Informant: patient Nausea/Vomiting/Emesis GI Symptom: Positive for Nausea and Vomiting Onset: Today Quality: Positive for Nonbilious; Negative for Blood streaks, Coffee ground or Hematemesis Diarrhea/Melena/Hematochezia GI Symptom: Positive for Diarrhea; Negative for Melena or Hematochezia Associated Symptoms Associated Symptoms: Negative for Dysuria, Frequency or Hematuria Narrative Narrative: Patient presents with nausea and vomiting that began again today. Patient states she had similar symptoms last week and was seen here. Patient states she was given a prescription for Zofran. Patient states she ran out of her Zofran and has not been able to follow-up with her [facility]. Patient states she has an appointment tomorrow with them. Patient states she is between 7 and 9 weeks . Patient states her last menstrual period was 07/22/2024. Patient admits to some mild loose stools. Patient denies any melena or hematochezia. Patient denies any hematemesis or coffee-ground emesis. Patient denies any abdominal pain. Patient denies any abnormal vaginal bleeding or discharge. PFSH PFS Medical History Anxiety Depression Asthma H/O gonorrhea Home Medications ?Medication ?Instructions ?Recorded ?Last Taken ?Type [id number] 1 mg 1 tab PO DAILY 05/25/22 05/25/22 08:00 History tablet promethazine 25 mg rectal 25 mg AR Q6H PRN nausea and 09/14/24 Unknown Rx suppository vomiting #12 ea cephalexin 500 mg capsule 500 mg PO Q6 #12 CAPSULES 09/24/24 Unknown Rx ondansetron 4 mg disintegrating 4 mg PO Q8H PRN PRN Nausea #14 tabs 09/24/24 Unknown Rx tablet Allergy/AdvReac Type Severity Reaction Status Date / Time No Known Allergies Allergy Verified 09/24/24 14:45 Family History Father Diabetes Unknown Heart disease Mother GERD (gastroesophageal reflux disease) Grandfather Heart disease Social History household members: significant other current occupational status: employed current occupation: [employer] history of recent travel: No sexually active: Yes Smoking Status: Former smoker Electronic Cigarette Use: with nicotine alcohol intake: current alcohol intake frequency: a few times a month substance use type: marijuana what type of physical activity do you participate in: none seatbelt use: always do you feel safe at home: Yes additional social history: single ROS ROS ED Constitutional Constitutional ED: Reports chills and subjective; Denies fever(s) Eyes Eyes: Reports blurry vision ENT ENT ED: Denies rhinorrhea or sore throat Cardiovascular Cardiovascular: Denies chest pain or palpitations Respiratory/Chest Respiratory/Chest: Denies cough or dyspnea Gastrointestinal Gastrointestinal: Reports nausea and vomiting Genitourinary Genitourinary ED: Denies dysuria or hematuria Musculoskeletal Musculoskeletal: Reports back pain; Denies neck pain Integumentary Denies abscess or rash Neurologic Neurologic: Denies headache(s) or weakness Allergic/Immunologic Allergic/Immunologic ED: Denies mouth swelling or urticaria EXAM Physical Exam Const Vital Signs: 09/24/24 14:45 09/24/24 17:00 Temperature 97.2 F L Temperature Source Temporal Pulse Rate 99 101 H Respiratory Rate 18 18 Blood Pressure 122/72 H Blood Pressure Mean 88 Pulse Ox 100 98 Oxygen Delivery Method Room Air Room Air Positive well nourished and well developed General Appearance ED: well developed and NAD HEENT Reports moist mucous membranes Neck supple and no JVD Resp normal respiratory effort and clear to auscultation bilaterally Cardio regular rate and regular rhythm GI non-tender and non-distended Palpation: soft Extremity General Extremety ED: Negative for edema or tenderness General Extremity: Negative for edema Neuro CN's II-XII intact bilaterally, moves all extremities and no sensory deficits noted Sensorium / Orientation: alert Motor Exam: strength 5/5 throughout Psych mental status grossly normal MDM MDM MDM Narrative Medical decision making narrative: Differential diagnosis includes hyperemesis gravidarum, viral illness, dehydration, electrolyte abnormality, and urinary tract infection. CBC will be obtained to assess for leukocytosis and anemia. Basic metabolic profile will be obtained to assess for electrolyte abnormality and renal function. Quantitative hCG will be obtained to assess for . Urinalysis will be obtained to assess for urinary tract infection and hematuria. Lab Data Attestation: I reviewed the patient's lab results. Lab results narrative: CBC was reviewed. There is a mild leukocytosis of 15.7. The remainder is within normal limits. Comprehensive metabolic profile was reviewed and was essentially within normal limits. [place] [address]. Urinalysis was reviewed. Leukocyte esterase was 25 with 5-10 white blood cells and 1+ bacteria. Labs: Laboratory Results - last 24 hr 09/24/24 09/24/24 15:42 17:49 WBC 15.7 H RBC 5.44 H Hgb 14.9 Hct 45.0 MCV 82.7 MCH 27.4 MCHC 33.1 RDW Std Deviation 40.3 RDW Coeff of Haydee 13.6 Plt Count 419 MPV 9.4 Immature Gran % (Auto) 0.400 Neut % (Auto) 82.0 H Lymph % (Auto) 13.5 L Stark % (Auto) 3.7 Eos % (Auto) 0.0 Baso % (Auto) 0.4 Absolute Neuts (auto) 12.9 H Absolute Lymphs (auto) 2.12 Nucleated RBC % 0 Sodium 136 Potassium 3.8 Chloride 105 Carbon Dioxide 23.0 Anion Gap 8 BUN 8 Creatinine 0.86 Estim Creat Clear Calc 133.12 Est GFR (MDRD) Af Amer 105 Est GFR (MDRD) Non-Af 86 BUN/Creatinine Ratio 9.3 L Glucose 108 H Calcium 9.7 Total Bilirubin 0.60 AST 20 ALT 41 Alkaline Phosphatase 86 Total Protein 8.3 H Albumin 4.1 Globulin 4.2 Albumin/Globulin Ratio 1.0 HCG, Quant 84817 H Serum , Qual POSITIVE Urine Color Yellow Urine Clarity Sl. Cloudy Urine pH 7.0 Ur Specific [place] 1.010 Urine Protein 30 H Urine Glucose (UA) Normal Urine Ketones 150 A* Urine Occult Blood Negative Urine Nitrite Negative Urine Bilirubin Negative Urine Urobilinogen Normal Ur Leukocyte Esterase 25 H Urine RBC 0-5 SEEN Urine WBC 5-10 SEEN Ur Squamous Epith Cells 0-5 SEEN Urine Bacteria 1+ Urine Mucus 2+ Additional Tests and Interventions Additional Tests or Interventions: Urine culture was ordered. Treatment and Re-Evaluation :: Patient was given IV fluids and Zofran. Patient was still having some vomiting on reevaluation. Patient was given a dose of Phenergan. Patient felt better after this. Patient was given a prescription for Zofran ODT. Patient was instructed to start with liquids and advance her diet as tolerated. Patient is given a dose of Keflex here. Patient was given a prescription for Keflex. Patient was instructed to follow-up with her primary care physician and [facility] as scheduled. Patient understood and was agreeable with the plan. All questions were answered. Discharge Plan Triage Chief Complaint: Nausea/Vomiting Other Complaint: ED Provider: Pato Carrillo Dx/Rx/DC Orders Clinical Impression: Nausea and vomiting, First trimester , Urinary tract infection Instructions: ED , ED Cystitis Female Adult, ED Vomiting (Adult) Prescriptions: New cephalexin 500 mg capsule 500 mg PO Q6 Qty: 12 0RF Continued ondansetron 4 mg tablet,disintegrating 4 mg PO Q8H PRN PRN (Reason: Nausea) Qty: 14 0RF No Action 1 mg Tablet 1 tab PO DAILY promethazine 25 mg suppository 25 mg AR Q6H PRN (Reason: nausea and vomiting) Qty: 12 0RF Primary Care Provider: Giuliana Bullard NP Referrals: Giuliana Bullard TRAIN CONTROL ELECTRONIC TECHNICIAN, TRA[employer] CONTROL ELECTRONIC TECHNICIAN-C [Primary Care Provider] - 5-7 Days Activity Restrictions/Additional Instructions: Follow-up with your [facility] tomorrow as scheduled. Print Language: Moroccan Disposition Disposition: Home, Self Care
[2024-09-24 16:06] LABS: Internal QC Validated? YES +Cl - CLEAR BKGD; Pregnancy, Serum, hCG Quali. POSITIVE Negative
[2024-09-24 16:07] LABS: AST(SGOT) 20 U/L (15-37); Alanine Aminotransfer ALT/SGPT 41 U/L (13-56); Albumin, Serum 4.1 g/dL (3.2-5.0); Alkaline Phosphatase 86 U/L (45-117); Anion Gap 8 (5-15); BUN 8 mg/dL (7-18); BUN/Creat Ratio 9.3 RATIO (10-20); Calcium,Total 9.7 mg/dL (8.5-10.1); Chloride 105 mmol/L (98-107); Creatinine, Serum 0.86 mg/dL (0.55-1.02); EST Glomerular Filtration Rate 86 mL/min (>60); Est Glom Filt Rate - Afr Amer 105 mL/min (>60); Estimated Creatinine Clearance 133.12 ml/min; Globulin 4.2 g/dL (2.2-4.2); Glucose 108 mg/dL (74-106); Potassium 3.8 mmol/L (3.5-5.1); Protein, Total 8.3 g/dL (6.4-8.2); Sodium Level 136 mmol/L (136-145)
[2024-09-24] MEDS: 0.9% Normal Saline (1000mL) 1,000 ML 999 ML IV (16:09)
[2024-09-24] MEDS: Ondansetron 4 MG/2 ML Vial IV (16:09)
[2024-09-24 17:00] VITALS: PULSE 101; RESP 18; O2SAT 98
[2024-09-24 17:02] LABS: hCG Titer Quant., Serum 30422 mIU/mL (1-3)
[2024-09-24 18:07] LABS: Color, Urine Yellow (Yellow); Glucose, Dipstick Normal (Normal); Leukocyte Esterase-Dipstick 25 /ul (Negative); Nitrite-Dipstick Negative (Negative); Occult Blood-Urine Negative /ul (Negative); Protein-Dipstick 30 mg/dl (Negative); Urine Bilirubin Dipstick Negative (Negative); Urine Clarity Sl. Cloudy (Clear); Urine Urobilinogen Normal (Normal)
[2024-09-24 18:11] LABS: Ketone-Dipstick 150 mg/dl (Negative)
[2024-09-24] MEDS: proMETHazine 25 MG/ML Syringe 6.25 MG IM (18:12)
[2024-09-24 18:21] LABS: Bacteria 1+ /hpf (None Seen); Mucous, Urine 2+ /hpf (<or=2+); Red Blood Cells-Urine 0-5 SEEN /hpf (0-5); Squamous Epithelial Cells - UA 0-5 SEEN /hpf (5-10); White Blood Cells 5-10 SEEN /hpf (0-5)
[2024-09-24] MEDS: Cephalexin 500 MG Capsule PO (18:56)
[2024-09-24 18:57] VITALS: PULSE 60; RESP 18; TEMP 36.6; O2SAT 98
== END 2024-09-24 18:58 | disposition home or self-care (01) ==
PROVIDERS: Emergency Provider Emergency Medicine; PCP Nurse Practitioner Family; Visit Provider Emergency Medicine
DX: O21.9 Vomiting of pregnancy, unspecified (principal); O23.41 Unspecified infection of urinary tract in pregnancy, first trimester; Z87.891 Personal history of nicotine dependence; J45.909 Unspecified asthma, uncomplicated; Z3A.00 Weeks of gestation of pregnancy not specified; O99.511 Diseases of the respiratory system complicating pregnancy, first trimester
CPT/HCPCS: 80053; 81001; 84702; 84703; 85025; 96361; 96372; 96374; 99284; A4216; J2405

== ENCOUNTER 2025-05-07 07:12 | Inpatient (IN) | payer MEDICAID, SELFPAY ==
[2025-05-07] VITALS (37 sets, daily range): BP systolic 113–168; BP diastolic 63–98; PULSE 48–91; RESP 16; TEMP 36.3–37.1; O2SAT 92–100; BMI 39.9
--- OUTSIDE RECORDS SUMMARY | 2025-05-07 07:06 | XMS RPT_ITS | CCD ---
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 Name Role Phone Gabriella Cassidy MD Primary Care Provider Unavail able QUEDEN, GIULIANA A Primary Care Unavailable MENDOZA CHUA Attending Unavailable MENDOZA CHUA Referring Unavailable QUEDEN, GIULIANA A Primary Care Unavailable Queden FUSING LINE INSPECTOR.RUSSELL Giuliana A Primary Care Provider Queden FUSING LINE INSPECTOR.RUSSELL Giuliana A Primary Care Provider QUEDEN, GIULIANA A Primary Care Unavailable QUEDEN, GIULIANA A Primary Care Unavailable IGNACIA LYON Attending Unavailable SELF Referring Unavailable [place] ULLOA Attending Unavailable QUEDEN, GIULIANA A Primary Care Unavailable HAURY, MADI Referring Unavailable QUEDEN, GIULIANA A Primary Care Unavailable TEN WISE Attending Unavailable QUEDEN, GIULIANA A Primary Care Unavailable PLOTTS, MAYELIN Attending Unavailable QUEDEN, GIULIANA A Primary Care Unavailable HAURY, MADI Referring Unavailable PLOTTS, MAYELIN Referring Unavailable QUEDEN, GIULIANA A Primary Care Unavailable QUEDEN, GIULIANA A Primary Care Unavailable SARAH YOUNGBLOOD Attending Unavailable QUEDEN, GIULIANA A Primary Care Unavailable PLOTTS, MAYELIN Referring Unavailable [place] ULLOA Attending Unavailable SELF Referring Unavailable HAURY, MADI Attending Unavailable QUEDEN, GIULIANA A Primary Care Unavailable HAURY, MADI Referring Unavailable QUEDEN, GIULIANA A Primary Care Unavailable QUEDEN, GIULIANA A Primary Care Unavailable HAURY, MADI Attending Unavailable IVETH WALKER Attending Unavail able PLOTTS, MAYELIN Referring Unavailable QUEDEN, GIULIANA A Primary Care Unavailable HAURY, MADI Attending Unavailable HAURY, MADI Referring Unavailable QUEDEN, GIULIANA A Primary Care Unavailable QUEDEN, GIULIANA A Primary Care Unavailable SARAH YOUNGBLOOD Attending Unavailable HAURY, MADI Referring Unavailable QUEDEN, GIULIANA A Primary Care Unavailable QUEDEN, GIULIANA A Primary Care Unavailable PLOTTS, MAYELIN Referring Unavailable QUEDEN, GIULIANA A Primary Care Unavailable PLOTTS, MAYELIN Referring Unavailable QUEDEN, GIULIANA A Primary Care Unavailable PLOTTS, MAYELIN Attending Unavailable QUEDEN, GIULIANA A Primary Care Unavailable PLOTTS, MAYELIN Referring Unavailable QUEDEN, GIULIANA A Primary Care Unavailable QUEDEN, GIULIANA A Primary Care Unavailable ENMANUEL RODRIGUEZ Attending Unavailable IVETH WALKER Referring Unavail able HAURY, MADI Referring Unavailable QUEDEN, GIULIANA A Primary Care Unavailable Juana Correa Attending Unavailable Queden, Giuliana Primary Care Unavailable Pato Carrillo Attending Unavailable Queden, Giuliana Primary Care Unavailable yN Ulloa Admitting Unavailable Ny Ulloa Attending Unavailable Queden, Giuliana Primary Care Unavailable Medications Current Medications Medication Drug Class(es) Dates Sig (Normalized) Sig (Original) [id number] 200 actuat albuterol 0.09 mg/actuat metered dose inhaler (20 sources) beta2-Adrenergic Agonist Start: 03-15-2023 take 2 puff(s) by inhalation every six hours as needed albuterol HFA (PROAIR HFA) 90 mcg/actuation inhaler Inhale 2 Puffs as instructed every 6 hours as needed. 1 Each 03/15/2023 Active Start: 03-29-2021 Albuterol Acti ve MCG INHALATION March 29, 2021 12:00am Start: 10-23-2020 End: 05-06-2024 take 2 puff(s) by inhalation every four hours as needed albuterol HFA (PROVENTIL HFA, VENTOLIN HFA) 90 mcg/actuation inhaler Indications: Mild intermittent asthma without complication Inhale 2 Puffs as instructed every 4 hours as needed. 18 g 1 10/23/2020 05/06/2024 Discontinued Start: 10-23-2020 take 2 puff(s) by in halation every four hours as needed albuterol sulfate HFA 108 (90 Base) MCG/ACT inhaler Inhale 2 puffs into the lungs every 4 hours as needed 0 10/23/2020 Active Comment on above: Inhale 2 Puffs as in structed every 4 hours as needed. Inhale 2 Puffs as in structed every 6 hours as needed. amoxicillin 875 mg oral tablet (1 source) Penicillin-class Antibacterial Start: 3 End: 3 take 1 tablet by mouth twice daily amoxicillin (AMOXIL) 875 mg tablet Take 1 tablet by mouth twice daily for 7 days. 14 tablet 0 11/28/2022 12/05/2022 Active Comment on above: Take 1 tablet by omaira th twice daily for 7 days. amoxicillin 875 mg / clavulanate 125 mg oral tablet (4 sources) Penicillin-class Antibacterial Start: 5 End: 5 take 1 tablet by mouth twice daily amoxicillin-clavula gibran potassium (AUGMENTIN) 875-125 mg per tablet Take 1 tablet by mouth two times a day for 7 days. 14 tablet 12/04/2024 12/11/2024 Active Start: 01-28-2024 End: 02-04-2024 take 1 tablet by mouth twice daily amoxicillin-clavulanate potassium (AUGMENTIN) 875-125 mg per tablet Indications: Rhinosinusitis Take 1 tablet by mouth two times a day for 7 days. 14 tablet 0 01/28/2024 02/04/2024 Active Start: 03-15-2023 End: 03-22-2023 take 1 tablet by mouth twice daily amoxicillin-clavulanic acid (AUGMENTIN) 875-125 mg per tablet Take 1 tablet by mouth twice daily for 7 days. 14 tablet 0 03/15/2023 03/22/2023 Active Comment on above: Take 1 tablet by omaira twice daily for 7 days. aspirin 81 mg delayed release oral tablet (20 sources) Platelet Aggregation Inhibitor, Nonsteroidal Anti-inflammatory Drug Start: 09-25-2024 take 1 tablet by mouth once daily aspirin, enteric coated (ECOTRIN LOW STRENGTH) 81 mg EC tablet Indications: Less than 8 weeks gestation of (HCC) , with uncertain dates in first trimester (HCC) Take 1 tablet by mouth once daily. 90 tablet 3 09/25/2024 Active biotin 1 mg oral capsule (3 sources) Start: 03-29-2021 take 1 mg by mouth once daily Biotin Active 1 MG PO DAILY Darby 12th, 2021 12:00am BIOTIN PO Take b y mouth 0 Active Biotin-Keratin (Biotin Plus Keratin) 10,000-100 mcg-mg tablet (2 sources) Start: 03-29-2021 Biotin-Keratin (Biotin Plus Keratin) 10,000-100 mcg-mg tablet Active TABLET PO March 29, 2021 12:00am doxylamine succinate 25 mg oral tablet (1 source) Start: 11-10-2021 take 1 tablet by mouth once daily doxyLAMINE succinate (UNISOM SLEEPTABS) 25 MG tablet Indications: Nausea and vomiting, intractability of vomiting not specified, unspecified vomiting type Take 1 tablet by mouth nightly 30 tablet 1 11/10/2021 Active Norgestimate-Ethinyl Estradiol (2 sources) Progestin, Estrogen Start: 03-29-2021 take 1 tablet by mouth once daily Norgestimate-Ethinyl Estradiol (Sprintec (28)) 0.25-35 mg-mcg tablet Active 1 TABLET PO daily March 29, 2021 12:00am medroxyPROGESTERone acetate 10 mg oral tablet (5 sources) Progestin Start: 04-12-2021 take 10 mg by mouth once daily Medroxyprogesterone Active 10 MG PO DAILY April 12, 2021 12:00am Start: 03-29-2021 End: 04-08-2021 take 10 mg by mouth once daily Medroxyprogesterone Discontinued 10 MG PO daily 10 March 29, 2021 12:00am April 08, 2021 12:01am miconazole nitrate 20 mg/ml vaginal cream (1 source) Azole Antifungal Start: 11-07-2024 End: 11-14-2024 miconazole (MONISTAT) 2 % vaginal cream Indications: BV (bacterial vaginosis) Use 1 Applicator vaginally once daily for 7 days. 45 g 11/07/2024 11/14/2024 Active naproxen 500 mg oral tablet (2 sources) Nonsteroidal Anti-inflammatory Drug Start: 03-29-2021 take 1 tablet by mouth twice daily Naproxen (Naprosyn) 500 mg tablet Active 500 MG PO TWICE A DAY March 29, 2021 12:00am Heath-3 Fatty Acids (FISH OIL OMEGA-3 PO) (1 source) Heath-3 Fatty Ac ids (FISH OIL OMEGA-3 PO) Take by mouth 0 Active ondansetron 4 mg disintegrating oral tablet (20 sources) Serotonin-3 Receptor Antagonist Start: 09-14-2024 End: 12-27-2024 take 1 tablet by mouth every eight hours as needed ondansetron orally disintegrating (ZOFRAN ODT) 4 mg disintegrating tablet Take 1 tablet by mouth every 8 hours as needed for nausea/vomiting. 60 tablet 2 12/27/2024 Active pantoprazole 20 mg delayed release oral tablet (20 sources) Proton Pump Inhibitor Start: 12-27-2024 take 1 tablet by mouth once daily pantoprazole DR (PROTONIX) 20 mg tablet Take 1 tablet by mouth once daily. 30 tablet 1 12/27/2024 Active 25/iron/folate 6/dha (PRENA1 ORAL) (20 sources) take 1 tablet by mouth once daily 25/iron/folate 6/dha (PRENA1 ORAL) Take 1 tablet by mouth once daily. Active Cbbikuur-Wjh-Zf-Fa () 1 mg Tablet (1 source) Start: 05-25-2022 take 1 tablet by mouth once daily Hosjmrwc-Qmo-Uy-Fa () 1 mg Tablet Active 1 TABLET PO DAILY May 25, 2022 12:00am MV & Min w/FA-DHA ( ADULT GUMMY/DHA/FA) 0.4-25 MG CHEW (1 source) take 0.4-25 mg by mouth once daily MV & Min w/FA-DHA ( ADULT GUMMY/DHA/FA) 0.4-25 MG CHEW Take 2 each by mouth daily 0 Active Vit-Fe Fumarate-FA ( VITAMIN) 27-1 MG TABS tablet (1 source) Start: 11-11-2021 take 1 tablet by mouth once daily Vit-Fe Fumarate-FA ( VITAMIN) 27-1 MG TABS tablet Take 1 tablet by mouth daily 30 tablet 3 11/11/2021 Active pyridoxine hydrochloride 25 mg oral tablet (1 source) Start: 10-07-2021 take 1 tablet by mouth three times daily vitamin B-6 (PYRIDOXINE) 25 MG tablet Indications: Nausea and vomiting, intractability of vomiting not specified, unspecified vomiting type Take 1 tablet by mouth 3 times daily 90 tablet 1 10/07/2021 Active sertraline 50 mg oral tablet (2 sources) Serotonin Reuptake Inhibitor Start: 03-29-2021 take 1 tablet by mouth once daily Sertraline (Zoloft) 50 mg tablet Active 50 MG PO DAILY March 29, 2021 12:00am triamcinolone acetonide 0.055 mg/actuat metered dose nasal spray (2 sources) Corticosteroid Start: 04-12-2021 Triamcinolone Acetonide Active INTRANASAL April 12, 2021 12:00am Completed/Discontinued Medications Medication Drug Class(es) Dates Sig (Normalized) Sig (Original) benzonatate 100 mg oral capsule (7 sources) Non-narcotic Antitussive Start: 05-15-2023 End: 05-06-2024 take 2 capsules by mouth three times daily as needed benzonatate (TESSALON PERLE) 100 mg capsule Indications: URI, acute Take 2 capsules by mouth three times daily as needed. 30 capsule 05/15/2023 05/06/2024 Discontinued Comment on above: Take 2 capsules by m outh three times daily as needed. etonogestrel 68 mg drug implant (2 sources) Progestin End: 05-06-2024 etonogestrel (NEXPLANON) 68 mg impl subdermal implant 68 mg by SUBDERMAL route one time only. Inserted 06/14/2022 through 06/14/2025. 05/06/2024 Discontinued famotidine 20 mg oral tablet (15 sources) Histamine-2 Receptor Antagonist Start: 09-25-2024 End: 12-27-2024 take 1 tablet by mouth twice daily famotidine (PEPCID) 20 mg tablet Take 1 tablet by mouth two times a day. 60 tablet 4 09/25/2024 12/27/2024 Discontinued Start: 03-29-2021 take 20 mg by mouth once daily Famotidine Active 20 MG PO DAILY March 29, 2021 12:00am fluconazole 150 mg oral tablet (3 sources) Azole Antifungal Start: 03-15-2023 End: 03-15-2023 fluconazole (DIFLUCAN) 150 mg tablet Take 1 tablet by mouth one time only for 1 dose. Repeat in 3 days as needed. 2 tablet 0 03/15/2023 03/15/2023 Start: 11-28-2022 End: 11-29-2022 take 1 tablet by mouth once daily fluconazole (DIFLUCAN) 150 mg tablet Take 1 tablet by mouth once daily for 1 day. 1 tablet 0 11/28/2022 11/29/2022 Active Comment on above: Take 1 tablet by omaira th once daily for 1 day. Take 1 tablet by omaira th one time only for 1 dose. Repeat in 3 days as needed. FLUoxetine 10 mg oral capsule (10 sources) Serotonin Reuptake Inhibitor Start: 11-14-19 End: 05-06-20 take 1 capsule by mouth once daily FLUoxetine (PROZAC) 10 mg capsule Take 10 mg by mouth once daily. 11/14/2022 05/06/2024 Discontinued Comment on above: Take 10 mg by mouth once daily. fluticasone propionate 0.05 mg/actuat metered dose nasal spray (12 sources) Corticosteroid Start: 12-23-19 End: 05-06-20 take 1 spray(s) nasal route twice daily fluticasone (FLONASE ALLERGY RELIEF) 50 mcg/actuation nasal spray Indications: Viral URI with cough Use 1 [place] in each nostril twice daily. 1 Each 12/22/2021 05/06/2024 Discontinued Start: 04-12-2021 Fluticasone Pr opionate (Flovent Diskus) 100 mcg/actuation blister with device Active INHALATION April 12, 2021 12:00am Comment on above: Use 1 [place] in each nostril twice daily. metroNIDAZOLE 500 mg oral tablet (1 source) Nitroimidazole Antimicrobial Start: 11-07-19 End: 11-07-19 take 1 tablet by mouth twice daily metroNIDAZOLE (FLAGYL) 500 mg tablet Indications: BV (bacterial vaginosis) Take 1 tablet by mouth two times a day for 7 days. 14 tablet 11/07/2024 11/07/2024 Discontinued (Erroneous entry) predniSONE 20 mg oral tablet (6 sources) Start: 10-29-19 End: 11-03-19 take 2 tablets by mouth once daily predniSONE (DELTASONE) 20 mg tablet Take 2 tablets by mouth once daily for 5 days. 10 tablet 10/29/2023 11/03/2023 Start: 05-15-2023 End: 05-20-2023 take 2 tablets by mouth once daily predniSONE (DELTASONE) 20 mg tablet Indications: URI, acute Take 2 tablets by mouth once daily for 5 days. 10 tablet 0 05/15/2023 05/20/2023 Active Start: 03-15-2023 End: 03-20-2023 take 2 tablets by mouth once daily predniSONE (DELTASONE) 20 mg tablet Take 2 tablets by mouth once daily for 5 days. 10 tablet 0 03/15/2023 03/20/2023 Active Comment on above: Take 2 tablets by mo uth once daily for 5 days. promethazine hydrochloride 25 mg oral tablet (14 sources) Phenothiazine Start: 09-25-19 End: 12-28-19 take 1 tablet by mouth every six hours as needed promethazine (PHENERGAN) 25 mg tablet Take 1 tablet by mouth every 6 hours as needed. 90 tablet 2 09/25/2024 12/27/2024 Discontinued Start: 10-07-2021 take 1 tablet by omaira every six hours as needed for nausea promethazine (PHENERGAN) 25 MG tablet Indications: Nausea and vomiting, intractability of vomiting not specified, unspecified vomiting type Take 1 tablet by mouth every 6 hours as needed for Nausea 30 tablet 1 10/07/2021 Active Problems Active Problems Problem Classification Problem Date Documented Date Episodic/Chronic Anxiety disorders (20 sources) Mixed anxiety and depressive disorder; Translations: [Anxiety disorder, unspecified] Onset: 11-10-2020 11-10-2020 Chronic Asthma (13 sources) Asthma; Translations: [Unspecified asthma, uncomplicated] 10-11-2019 Chronic Diabetes mellitus without complication (17 sources) Increased glucose level; Translations: [Other abnormal glucose] Onset: 02-21-2025 02-21-2025 Episodic Genitourinary symptoms and ill-defined conditions (1 source) Increased frequency of urination; Translations: [Frequency of micturition] 11-06-2024 Episodic Hypertension complicating ; childbirth and the puerperium (2 sources) -induced hypertension; Translations: [Gestational [-induced] hypertension without significant proteinuria, unspecified trimester] Episodic Immunity disorders (2 sources) Autoimmune disease; Translations: [Other specified disorders involving the immune mechanism, not elsewhere classified] Onset: 11-15-2021 11-15-2021 Chronic Immunizations and screening for infectious disease (20 sources) Anti-nuclear factor positive; Translations: [Other specified abnormal immunological findings in serum] Onset: 10-25-2019 Resolved: 11-10-2020 11-15-2021 Episodic Inflammatory diseases of female pelvic organs (1 source) Bacterial vaginosis; Translations: [Acute vaginitis] 11-07-2024 Episodic Menstrual disorders (3 sources) Irregular periods; Translations: [Irregular menstruation, unspecified] Chronic Mood disorders (13 sources) Mild major depression, single episode; Translations: [Major depressive disorder, single episode, mild] Onset: 06-28-2018 06-28-2018 Chronic Mood disorders (1 source) Mood disorders; Translations: [Anxiety and depression] Onset: 09-25-2024 Other circulatory disease (1 source) Wheeze - rhonchi; Translations: [Other specified symptoms and signs involving the circulatory and respiratory systems] 10-29-2023 Episodic Other complications of (16 sources) Obesity complicating , unspecified trimester; Translations: [Obesity complicating , childbirth, or the puerperium, antepartum condition or complication] Onset: 11-15-2021 Chronic Other complications of (20 sources) Maternal obesity complicating , childbirth and the puerperium, antepartum; Translations: [Obesity complicating , first trimester] Onset: 04-05-2021 09-25-2024 Chronic Other complications of (1 source) Obesity complicating , second trimester; Translations: [Obesity affecting in second trimester, unspecified obesity type (HCC)] Onset: 01-24-2025 Chronic Other complications of (1 source) Obesity complicating , first trimester; Translations: [Obesity affecting in first trimester, unspecified obesity type] Onset: 09-25-2024 Chronic Other complications of (20 sources) High risk ; Translations: [Supervision of high risk , unspecified, second trimester] Onset: 09-25-2024 Episodic Other complications of (20 sources) Asthma in ; Translations: [Diseases of the respiratory system complicating , unspecified trimester] Onset: 11-15-2021 11-15-2021 Episodic Other complications of (1 source) Depressive disorder; Translations: [Other mental disorders complicating , unspecified trimester] Onset: 11-15-2021 11-15-2021 Episodic Other complications of (1 source) Anxiety in ; Translations: [Other mental disorders complicating , unspecified trimester] Onset: 11-15-2021 11-15-2021 Episodic Other complications of (20 sources) History of pre-eclampsia; Translations: [Supervision of with other poor reproductive or obstetric history, unspecified trimester] 09-25-2024 Episodic Other female genital disorders (1 source) Vaginal odor; Translations: [Other specified noninflammatory disorders of vagina] 05-03-2024 Episodic Other female genital disorders (1 source) Vaginal discharge; Translations: [Other specified noninflammatory disorders of vagina] 11-06-2024 Episodic Other lower respiratory disease (1 source) H/O: asthma; Translations: [Personal history of other diseases of the respiratory system] 05-15-2023 Episodic Other nutritional; endocrine; and metabolic disorders (13 sources) Obese class II; Translations: [Obesity, unspecified] Onset: 04-05-2021 04-05-2021 Chronic Other nutritional; endocrine; and metabolic disorders (4 sources) Obesity; Translations: [Obesity, unspecified] 05-03-2024 Chronic Other conditions (14 sources) Large for gestation age fetus; Translations: [Other heavy for gestational age ] Onset: 03-20-2025 03-20-2025 Episodic Other conditions (1 source) Other heavy for gestational age ; Translations: [LGA (large for gestational age) infant (HCC)] Onset: 03-20-2025 Episodic Other screening for suspected conditions (not mental disorders or infectious disease) (2 sources) Cancer cervix screening status; Translations: [Encounter for screening for malignant neoplasm of cervix] Onset: 02-21-2025 05-03-2024 Episodic Other upper respiratory infections (2 sources) Chronic sinusitis, unspecified; Translations: [Unspecified sinusitis (chronic)] 01-28-2024 Chronic Other upper respiratory infections (4 sources) Sore throat symptom; Translations: [Acute pharyngitis, unspecified] Episodic Otitis media and related conditions (2 sources) Acute right otitis media; Translations: [Otitis media, unspecified, right ear] Episodic Residual codes; unclassified (1 source) FH: Congenital heart disease; Translations: [Family history of other congenital malformations, deformations and chromosomal abnormalities] Onset: 11-15-2021 2 Episodic Residual codes; unclassified (14 sources) Gestation period, 16 weeks; Translations: [16 weeks gestation of ] Onset: 11-29-2021 11-29-2021 Episodic Residual codes; unclassified (2 sources) Pain; Translations: [Pain, unspecified] 10-30-2023 Episodic Residual codes; unclassified (1 source) First trimester ; Translations: [Less than 8 weeks gestation of ] 09-25-2024 Episodic Residual codes; unclassified (20 sources) H/O: depression; Translations: [Personal history of other complications of , childbirth and the puerperium] 09-25-2024 Episodic Residual codes; unclassified (2 sources) Gestation period, 12 weeks; Translations: [12 weeks gestation of ] 11-01-2024 Episodic Residual codes; unclassified (1 source) Gestation period, 19 weeks; Translations: [19 weeks gestation of ] 11-06-2024 Episodic Residual codes; unclassified (3 sources) Gestation period, 20 weeks; Translations: [20 weeks gestation of ] 12-27-2024 Episodic Residual codes; unclassified (1 source) Gestation period, 24 weeks; Translations: [24 weeks gestation of ] 01-24-2025 Episodic Residual codes; unclassified (2 sources) Gestation period, 28 weeks; Translations: [28 weeks gestation of ] 02-21-2025 Episodic Residual codes; unclassified (1 source) Gestation period, 30 weeks; Translations: [30 weeks gestation of ] 03-07-2025 Episodic Residual codes; unclassified (1 source) Gestation period, 32 weeks; Translations: [32 weeks gestation of ] 03-20-2025 Episodic Residual codes; unclassified (1 source) Gestation period, 34 weeks; Translations: [34 weeks gestation of ] 04-04-2025 Episodic Residual codes; unclassified (2 sources) Gestation period, 36 weeks; Translations: [36 weeks gestation of ] 04-18-2025 Episodic Residual codes; unclassified (1 source) 37 weeks gestation of ; Translations: [37 weeks gestation of (HCC)] Onset: 04-23-2025 Episodic Residual codes; unclassified (1 source) 36 weeks gestation of ; Translations: [36 weeks gestation of (HCC)] Onset: 04-18-2025 Episodic Residual codes; unclassified (1 source) 34 weeks gestation of ; Translations: [34 weeks gestation of (HCC)] Onset: 04-04-2025 Episodic Residual codes; unclassified (1 source) 30 weeks gestation of ; Translations: [30 weeks gestation of (HCC)] Onset: 03-07-2025 Episodic Residual codes; unclassified (1 source) 28 weeks gestation of ; Translations: [28 weeks gestation of (HCC)] Onset: 02-21-2025 Episodic Residual codes; unclassified (1 source) Gestation period, 37 weeks; Translations: [37 weeks gestation of ] 04-28-2025 Episodic Unclassified (20 sources) [facility] - [facility] Onset: 09-25-2024 09-25-2024 Unclassified (20 sources) Education - [place] Onset: 09-25-2024 09-25-2024 Unclassified (1 source) Other specified diseases and conditions complicating ; Translations: [Other specified diseases and conditions complicating ] Onset: 10-10-2024 Past or Other Problems Problem Classification Problem Date Documented Da te Episodic/Chronic trauma (20 sources) trauma; Translations: [ injury, unspecified] Onset: 12-27-2024 12-27-2024 Episodic Calculus of urinary tract (20 sources) Kidney stone; Translations: [Calculus of kidney] Onset: 11-29-2021 Resolved: 11-01-2024 11-29-2021 Episodic Contraceptive and procreative management (3 sources) Subcutaneous contraceptive implant present; Translations: [Encounter for surveillance of implantable subdermal contraceptive] Onset: 05-06-2024 05-03-2024 Episodic Delirium, dementia, and amnestic and other cognitive disorders (20 sources) Postconcussion syndrome; Translations: [Postconcussional syndrome] Onset: 06-28-2018 Resolved: 10-11-2019 10-11-2019 Chronic Headache; including migraine (20 sources) Headache; Translations: [Headache, unspecified headache type] Onset: 06-28-2018 Resolved: 02-21-2025 06-28-2018 Episodic Malaise and fatigue (15 sources) Other malaise; Translations: [Other fatigue] Onset: 01-30-2020 01-30-2020 Episodic Miscellaneous mental health disorders (13 sources) Insomnia; Translations: [Adjustment insomnia] Onset: 06-28-2018 06-28-2018 Episodic Nonmalignant breast conditions (2 sources) Discharge from nipple; Translations: [Nipple discharge] Onset: 05-06-2024 05-03-2024 Episodic Other complications of (14 sources) Disease caused by 2019-nCoV; Translations: [Other viral diseases complicating , unspecified trimester] Onset: 11-01-2021 11-01-2021 Episodic Other complications of (20 sources) Vomiting of , unspecified; Translations: [Unspecified vomiting of , unspecified as to episode of care or not applicable] Onset: 09-25-2024 Resolved: 02-21-2025 09-25-2024 Episodic Other complications of (20 sources) Heartburn; Translations: [Other specified related conditions, first trimester] Onset: 09-25-2024 09-25-2024 Episodic Other complications of (20 sources) Complication occurring during ; Translations: [ complication before ] Onset: 12-27-2024 12-27-2024 Episodic Other complications of (1 source) Supervision of high risk , unspecified, second trimester; Translations: [Supervision of high risk in second trimester (HCC)] Onset: 01-24-2025 Episodic Other complications of (2 sources) Supervision of with other poor reproductive or obstetric history, unspecified trimester; Translations: [Hx of preeclampsia, prior , currently (HCC)] Onset: 09-25-2024 Episodic Other complications of (1 source) Other specified related conditions, first trimester; Translations: [Heartburn during in first trimester (HCC)] Onset: 01-24-2025 Episodic Other complications of (2 sources) Supervision of high risk , unspecified, first trimester; Translations: [Supervision of high risk in first trimester] Onset: 09-25-2024 Episodic Other gastrointestinal disorders (1 source) Heartburn; Translations: [Heartburn during in first trimester (HCC)] Onset: 01-24-2025 Episodic Other liver diseases (20 sources) Elevated liver enzymes level; Translations: [Abnormal levels of other serum enzymes] Onset: 10-10-2019 Resolved: 09-25-2024 10-10-2019 Episodic Other liver diseases (20 sources) Jaundice; Translations: [Unspecified jaundice] Onset: 10-10-2019 Resolved: 11-10-2020 11-10-2020 Episodic Other non-traumatic joint disorders (11 sources) Pain in right hip joint; Translations: [Pain in right hip] Onset: 10-11-2019 10-11-2019 Episodic Other non-traumatic joint disorders (13 sources) Multiple joint pain; Translations: [Pain in unspecified joint] Onset: 01-30-2020 01-30-2020 Episodic Other non-traumatic joint disorders (2 sources) Hip pain; Translations: [Pain in right hip] Onset: 10-11-2019 10-11-2019 Episodic Other and delivery including normal (20 sources) Patient encounter status; Translations: [Encounter for supervision of normal , unspecified, unspecified trimester] Onset: 11-15-2021 11-15-2021 Episodic Residual codes; unclassified (1 source) 19 weeks gestation of ; Translations: [19 weeks gestation of ] Onset: 12-31-2021 Episodic Residual codes; unclassified (20 sources) FH: Chromosomal anomaly; Translations: [Family history of other congenital malformations, deformations and chromosomal abnormalities] Onset: 09-25-2024 09-25-2024 Episodic Residual codes; unclassified (20 sources) Family history of autism; Translations: [Family history of other mental and behavioral disorders] Onset: 09-25-2024 09-25-2024 Episodic Residual codes; unclassified (1 source) 24 weeks gestation of ; Translations: [24 weeks gestation of (HCC)] Onset: 01-24-2025 Episodic Residual codes; unclassified (2 sources) Less than 8 weeks gestation of ; Translations: [Less than 8 weeks gestation of (HCC)] Onset: 11-01-2024 Episodic Residual codes; unclassified (1 source) 12 weeks gestation of ; Translations: [12 weeks gestation of ] Onset: 11-01-2024 Episodic Residual codes; unclassified (1 source) 9 weeks gestation of ; Translations: [9 weeks gestation of ] Onset: 09-25-2024 Episodic Spondylosis; intervertebral disc disorders; other back problems (13 sources) Neck pain; Translations: [Cervicalgia] Onset: 06-28-2018 06-28-2018 Episodic Viral infection (20 sources) Infectious mononucleosis; Translations: [Infectious mononucleosis, unspecified without complication] Onset: 09-18-2019 Resolved: 09-25-2024 10-10-2019 Episodic Results Test Name Value Interpretation Reference Range Facil ity URINE OB DIP B/Oon 5 Glucose Ql (U) Negative Neg mg/dL [facility] Interpretation and review of laboratory results Normal [facility] Protein.monoclonal (U) [Mass/Vol] Negative Neg mg/dL [facility] Examination level ultrasound on 04-18-2025 [facility] Radiology Study observation (narrative) [facility] ROUTINE, GROUP B ST REPTOCOCCUS BY PCRon 04-18-2025 ROUTINE, GROUP B STREPTOCOCCUS BY PCR Not detected Normal [facility] Comment on above: Performed By: #### G BPCR ####[facility] LABCLIA [id number] [address] STATES OF [facility] URINE OB DIP B/Oon 5 Glucose Ql (U) Negative Neg mg/dL [facility] Interpretation and review of laboratory results Normal [facility] Protein.monoclonal (U) [Mass/Vol] Negative Neg mg/dL [facility] CNPNon 04-07-2025 CNPN Telephone ([id number]) -- MICHAEL PALMA ([id number]) 2 F UPA Date Time Provider Department 04/07/25 SARAH MAHMOOD [id number] During your visit today, we recorded the following information about you: Sarah Mahmood RN 04/07/2025 8:21 AM Signed 3rd risk assessment form submitted 04/07/2025. 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 - pantoprazole DR (PROTONIX) 20 mg tablet Take 1 tablet by mouth once daily. - aspirin, enteric coated (ECOTRIN LOW STRENGTH) 81 mg EC tablet Take 1 tablet by mouth once daily. - 25/iron/folate 6/dha (PRENA1 ORAL) Take 1 tablet by mouth once daily. - albuterol HFA (PROAIR HFA) 90 mcg/actuation inhaler Inhale 2 Puffs as instructed every 6 hours as needed. Problem List As Of Date 04/07/2025 Noted Resolved Headache, unspecified headache type [R51.9] 06/28/2018 02/21/2025 Post concussion syndrome [F07.81] 06/28/2018 10/11/2019 Elevated liver enzymes [R74.8] 10/10/2019 09/25/2024 Jaundice [R17] 10/10/2019 11/10/2020 Asthma affecting in first trimester [* JESUS positive [R76.8] Mononucleosis [B27.90] 09/201909/25/2024 Hepatitis A antibody positive [R76.8] 10/25/2019 11/10/2020 Anxiety and depression [F41.9, F32.A] 11/10/2020 Obesity complicating , first trimester*04/05/2021 Kidney stone on right side [N20.0] 11/29/2021 11/01/2024 Hx of preeclampsia, prior , currently * History of depression [Z87.59, Z86.5* Nausea and vomiting during (HCC) [O21*09/25/2024 02/21/2025 Heartburn during in first trimester (*09/25/2024 Family history of Down syndrome [Z82.79] 09/25/2024 Family history of autism [Z81.8] 09/25/2024 with uncertain dates in first trimest*09/25/2024 Traumatic [P15.9] 12/27/2024 [facility] [O99.891] 12/27/2024 Elevated glucose [R73.09] 02/21/2025 LGA (large for gestational age) (HCC) [P*03/20/2025 Encounter Status:Closed by SARAH MAHMOOD on 04/07/25 Normal [facility] URINE OB DIP B/Oon Glucose Ql (U) Negative Neg mg/dL [facility] Interpretation and review of laboratory results Normal [facility] Protein.monoclonal (U) [Mass/Vol] Negative Neg mg/dL [facility] CNPNon 03-20-2025 CNPN Telephone (FV3L+D) -- MICHAEL PALMA ([id number]) 2 F UPA Date Time Provider Department 03/20/25 MPOWER FV OB LANDD FV3L+D During your visit today, we recorded the following information about you: Allergies As of Date: 03/20/2025 (No Known Allergies) Date Reviewed: 03/20/2025 Reviewed by: Ny Ulloa MD - Fully Assessed Reason for Visit: Care Coordination [8521] Cmt: [facility]-Power Scheduling LM attempt # 2 Prescriptions as of 03/20/2025 - ondansetron orally disintegrating (ZOFRAN ODT) 4 mg disintegrating tablet Take 1 tablet by mouth every 8 hours as needed for nausea/vomiting. - pantoprazole DR (PROTONIX) 20 mg tablet Take 1 tablet by mouth once daily. - aspirin, enteric coated (ECOTRIN LOW STRENGTH) 81 mg EC tablet Take 1 tablet by mouth once daily. - 25/iron/folate 6/dha (PRENA1 ORAL) Take 1 tablet by mouth once daily. - albuterol HFA (PROAIR HFA) 90 mcg/actuation inhaler Inhale 2 Puffs as instructed every 6 hours as needed. Problem List As Of Date 03/20/2025 Noted Resolved Headache, unspecified headache type [R51.9] 06/28/2018 02/21/2025 Post concussion syndrome [F07.81] 06/28/2018 10/11/2019 Elevated liver enzymes [R74.8] 10/10/2019 09/25/2024 Jaundice [R17] 10/10/2019 11/10/2020 Asthma affecting in first trimester [* JESUS positive [R76.8] Mononucleosis [B27.90] 09/201909/25/2024 Hepatitis A antibody positive [R76.8] 10/25/2019 11/10/2020 Anxiety and depression [F41.9, F32.A] 11/10/2020 Obesity complicating , first trimester*04/05/2021 Kidney stone on right side [N20.0] 11/29/2021 11/01/2024 Hx of preeclampsia, prior , currently * History of depression [Z87.59, Z86.5* Nausea and vomiting during (HCC) [O21*09/25/2024 02/21/2025 Heartburn during in first trimester (*09/25/2024 Family history of Down syndrome [Z82.79] 09/25/2024 Family history of autism [Z81.8] 09/25/2024 with uncertain dates in first trimest*09/25/2024 Traumatic [P15.9] 12/27/2024 [facility] [O99.891] 12/27/2024 Elevated glucose [R73.09] 02/21/2025 LGA (large for gestational age) (HCC) [P*03/20/2025 Encounter Status:Closed by ANA LAU on 03/20/25 Normal [facility] Examination level ultrasound on 03-20-2025 [facility] Radiology Study observation (narrative) [facility] Hollie 03-13-2025 XU Telephone (HLL+D) -- LOUIEMICHAEL ([id number]) 2 F UPA Date Time Provider Department 03/13/25 BEAU WAN HLL+D During your visit today, we recorded the following information about you: Allergies As of Date: 03/13/2025 (No Known Allergies) Date Reviewed: 03/07/2025 Reviewed by: Sarah Youngblood MD - Fully Assessed Reason for Visit: Care Coordination [3491] Cmt: M-Power Scheduling LM attempt # 1 Prescriptions as of 03/13/2025 - ondansetron orally disintegrating (ZOFRAN ODT) 4 mg disintegrating tablet Take 1 tablet by mouth every 8 hours as needed for nausea/vomiting. - pantoprazole DR (PROTONIX) 20 mg tablet Take 1 tablet by mouth once daily. - aspirin, enteric coated (ECOTRIN LOW STRENGTH) 81 mg EC tablet Take 1 tablet by mouth once daily. - 25/iron/folate 6/dha (PRENA1 ORAL) Take 1 tablet by mouth once daily. - albuterol HFA (PROAIR HFA) 90 mcg/actuation inhaler Inhale 2 Puffs as instructed every 6 hours as needed. Problem List As Of Date 03/13/2025 Noted Resolved Headache, unspecified headache type [R51.9] 06/28/2018 02/21/2025 Post concussion syndrome [F07.81] 06/28/2018 10/11/2019 Elevated liver enzymes [R74.8] 10/10/2019 09/25/2024 Jaundice [R17] 10/10/2019 11/10/2020 Asthma affecting in first trimester [* JESUS positive [R76.8] Mononucleosis [B27.90] 09/201909/25/2024 Hepatitis A antibody positive [R76.8] 10/25/2019 11/10/2020 Anxiety and depression [F41.9, F32.A] 11/10/2020 Obesity complicating , first trimester*04/05/2021 Kidney stone on right side [N20.0] 11/29/2021 11/01/2024 Hx of preeclampsia, prior , currently * History of depression [Z87.59, Z86.5* Nausea and vomiting during (HCC) [O21*09/25/2024 02/21/2025 Heartburn during in first trimester (*09/25/2024 Family history of Down syndrome [Z82.79] 09/25/2024 Family history of autism [Z81.8] 09/25/2024 with uncertain dates in first trimest*09/25/2024 Traumatic [P15.9] 12/27/2024 [facility] [O99.891] 12/27/2024 Elevated glucose [R73.09] 02/21/2025 Encounter Status:Closed by ANA LAU on 03/13/25 [facility] 02-24-2025 [facility] Telephone ([id number]) -- MICHAEL PALMA ([id number]) 2 F [facility] Date Time Provider Department 02/24/25 SARAH MAHMOOD [id number] During your visit today, we recorded the following information about you: Sarah Mahmood RN 02/24/2025 9:21 AM Signed 2nd risk assessment form submitted 02/24/2025. 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 - pantoprazole DR (PROTONIX) 20 mg tablet Take 1 tablet by mouth once daily. - aspirin, enteric coated (ECOTRIN LOW STRENGTH) 81 mg EC tablet Take 1 tablet by mouth once daily. - 25/iron/folate 6/dha (PRENA1 ORAL) Take 1 tablet by mouth once daily. - albuterol HFA (PROAIR HFA) 90 mcg/actuation inhaler Inhale 2 Puffs as instructed every 6 hours as needed. Problem List As Of Date 02/24/2025 Noted Resolved Headache, unspecified headache type [R51.9] 06/28/2018 02/21/2025 Post concussion syndrome [F07.81] 06/28/2018 10/11/2019 Elevated liver enzymes [R74.8] 10/10/2019 09/25/2024 Jaundice [R17] 10/10/2019 11/10/2020 Asthma affecting in first trimester [* JESUS positive [R76.8] Mononucleosis [B27.90] 09/201909/25/2024 Hepatitis A antibody positive [R76.8] 10/25/2019 11/10/2020 Anxiety and depression [F41.9, F32.A] 11/10/2020 Obesity complicating , first trimester*04/05/2021 Kidney stone on right side [N20.0] 11/29/2021 11/01/2024 Hx of preeclampsia, prior , currently * History of depression [Z87.59, Z86.5* Nausea and vomiting during (HCC) [O21*09/25/2024 02/21/2025 Heartburn during in first trimester (*09/25/2024 Family history of Down syndrome [Z82.79] 09/25/2024 Family history of autism [Z81.8] 09/25/2024 with uncertain dates in first trimest*09/25/2024 Traumatic [P15.9] 12/27/2024 [facility] [O99.891] 12/27/2024 Elevated glucose [R73.09] 02/21/2025 Encounter Status:Closed by SARAH MAHMOOD on 02/24/25 Normal [facility] GLUCOSE GESTATIONAL, 1 HOURo n 02-22-2025 Glucose 1 Hr post Unsp challenge [Mass/Vol] 130 mg/dL Normal 74-179 [facility] Comment on above: Order Comment: Speci men Type: BLOOD SPECIMEN Ordering Facility: [facility] Address: [address] [place] [address] [place] [address] Result Comment: [facility] Congress of Obstetricians and Gynecologists (Chatterjee/Coustan) guidelines state gestational diabetes mellitus is present when 2 or more of the plasma glucose concentrations meet or exceed the following levels: fastin mg/dl, 1 hr: 180 mg/dl, 2 hr: 155 mg/dl, and 3 hr: 140 mg/dl. Performed By: #### 2 4323-8 #### [facility] [id number] [address] [place] [address] [place] GLUCOSE GESTATIONAL, 2 HOURo n 02-22-2025 Glucose 2 Hr post Unsp challenge [Mass/Vol] 103 mg/dL Normal 74-154 [facility] Comment on above: Order Comment: Cheryl raza Type: BLOOD SPECIMENOrdering Facility: [facility] Address: [address] [place] [address] Result Comment: [facility] Congress of Obstetricians and Gynecologists (Sen/Yoselyn) guidelines state gestational diabetes mellitus is present when 2 or more of the plasma glucose concentrations meet or exceed the following levels: fastin mg/dl, 1 hr: 180 mg/dl, 2 hr: 155 mg/dl, and 3 hr: 140 mg/dl. Performed By: #### G TGST2 ####[facility] LABCLIA [id number] [place] [address] [place] GLUCOSE GESTATIONAL, 3 HOURo n 02-22-2025 Glucose 3 Hr post Unsp challenge [Mass/Vol] 159 mg/dL High 74-139 [facility] Comment on above: Order Comment: Cheryl raza Type: BLOOD SPECIMENOrdering Facility: [facility] Address: [address] [place] [address] Result Comment: [facility] Congress of Obstetricians and Gynecologists (Chatterjee/Lynnstan) guidelines state gestational diabetes mellitus is present when 2 or more of the plasma glucose concentrations meet or exceed the following levels: fastin mg/dl, 1 hr: 180 mg/dl, 2 hr: 155 mg/dl, and 3 hr: 140 mg/dl. Performed By: #### G TGST3 ####[facility] LABCLIA [id number] [place] [address] [place] GLUCOSE GESTATIONAL, FASTING on 02-22-2025 Glucose post fast [Mass/Vol] 87 mg/dL Normal 74-94 [facility] Comment on above: Order Comment: Speci men Type: BLOOD SPECIMEN Ordering Facility: [facility] Address: [address] [place] [address] Result Comment: [facility] Congress of Obstetricians and Gynecologists (Sen/Yoselyn) guidelines state gestational diabetes mellitus is present when 2 or more of the plasma glucose concentrations meet or exceed the following levels: fastin mg/dl, 1 hr: 180 mg/dl, 2 hr: 155 mg/dl, and 3 hr: 140 mg/dl. Performed By: #### G TGSTF #### [facility] LAB CLIA [id number] [address] [place] [address] [place] CBC W Auto Differential pane l (Bld)on 02-21-2025 Basophils (Bld) [#/Vol] 10*3/uL Normal <0.11 [facility] Comment on above: Order Comment: Speci men Type: BLOOD SPECIMENOrdering Facility: [facility] Address: [address] [place] [address] Performed By: #### 5 7021-8 ####[facility] [id number] [place] [address] [place] Basophils/100 WBC (Bld) 0.2 % Normal [facility] Comment on above: Order Comment: Speci men Type: BLOOD SPECIMENOrdering Facility: [facility] Address: [address] [place] [address] Performed By: #### 5 7021-8 ####[facility] [id number] [place] [address] [place] Differential cell count method Nom (Bld) Auto Normal [facility] Comment on above: Order Comment: Speci men Type: BLOOD SPECIMENOrdering Facility: [facility] Address: [address] [place] [address] Performed By: #### 5 7021-8 ####[facility] MILLWNCLIA [id number] [place] [address] [place] Eosinophils (Bld) [#/Vol] 0.05 10*3/uL Normal <0.46 [facility] Comment on above: Order Comment: Speci men Type: BLOOD SPECIMENOrdering Facility: [facility] Address: [address] [place] [address] Performed By: #### 5 7021-8 ####[facility] [id number] [place] [address] [place] Eosinophils/100 WBC (Bld) 0.5 % Normal [facility] Comment on above: Order Comment: Speci men Type: BLOOD SPECIMENOrdering Facility: [facility] Address: [address] [place] [address] Performed By: #### 5 7021-8 ####[facility] [id number] [place] [address] [place] Erythrocyte distribution width (RBC) [Ratio] 13.5 % Normal 11.5-15.0 [facility] Comment on above: Order Comment: Speci men Type: BLOOD SPECIMENOrdering Facility: [facility] Address: [address] [place] [address] Performed By: #### 5 7021-8 ####[facility] [id number] [place] [address] [place] Hematocrit (Bld) [Volume fraction] 35.8 % Low 36.0-46.0 [facility] Comment on above: Order Comment: Speci men Type: BLOOD SPECIMENOrdering Facility: [facility] Address: [address] [place] [address] Performed By: #### 5 7021-8 ####[facility] [id number] [place] [address] [place] Hemoglobin (Bld) [Mass/Vol] 11.6 g/dL Normal 11.5-15.5 [facility] Comment on above: Order Comment: Speci men Type: BLOOD SPECIMENOrdering Facility: [facility] Address: [address] [place] [address] Performed By: #### 5 7021-8 ####[facility] [id number] [place] [address] [place] Immature granulocytes (Bld) [#/Vol] 0.04 10*3/uL Normal <0.10 [facility] Comment on above: Order Comment: Speci men Type: BLOOD SPECIMENOrdering Facility: [facility] Address: [address] [place] [address] Performed By: #### 5 7021-8 ####[facility] [id number] [place] [address] [place] Immature granulocytes/100 WBC (Bld) 0.4 % Normal [facility] Comment on above: Order Comment: Speci men Type: BLOOD SPECIMENOrdering Facility: [facility] Address: [address] [place] [address] Performed By: #### 5 7021-8 ####[facility] [id number] [place] [address] [place] Lymphocytes (Bld) [#/Vol] 2.29 10*3/uL Normal 1.00-4.00 [facility] Comment on above: Order Comment: Speci men Type: BLOOD SPECIMENOrdering Facility: [facility] Address: [address] [place] [address] Performed By: #### 5 7021-8 ####[facility] [id number] [place] [address] [place] Lymphocytes/100 WBC (Bld) 21.1 % Normal [facility] Comment on above: Order Comment: Speci men Type: BLOOD SPECIMENOrdering Facility: [facility] Address: [address] [place] [address] Performed By: #### 5 7021-8 ####[facility] ELENOEddieNCBRAYAN [id number] [address] [place] [facility] MCH (RBC) [Entitic mass] 26.4 pg Normal 26.0-34.0 [facility] Comment on above: Order Comment: Speci men Type: BLOOD SPECIMENOrdering Facility: [facility] Address: [address] [place] [address] Performed By: #### 5 7021-8 ####[facility] [id number] [address] [place] MCHC (RBC) [Mass/Vol] 32.4 g/dL Normal 30.5-36.0 [facility] Comment on above: Order Comment: Speci men Type: BLOOD SPECIMENOrdering Facility: [facility] Address: [address] [place] [address] Performed By: #### 5 7021-8 ####[facility] [id number] [address] [place] MCV (RBC) [Entitic vol] 81.4 fL Normal 80.0-100.0 [facility] Comment on above: Order Comment: Speci men Type: BLOOD SPECIMENOrdering Facility: [facility] Address: [address] [place] [address] Performed By: #### 5 7021-8 ####[facility] [id number] [place] [address] [place] Monocytes (Bld) [#/Vol] 0.47 10*3/uL Normal <0.87 [facility] Comment on above: Order Comment: Speci men Type: BLOOD SPECIMENOrdering Facility: [facility] Address: [address] [place] [address] [place] [address] Performed By: #### 5 7021-8 ####[facility] ELENOWREYESLIA [id number] [place] [address] [place] Monocytes/100 WBC (Bld) 4.3 % Normal [facility] Comment on above: Order Comment: Speci men Type: BLOOD SPECIMENOrdering Facility: [facility] Address: [address] [place] [address] Performed By: #### 5 7021-8 ####[facility] [id number] [place] [address] [place] Neutrophils (Bld) [#/Vol] 7.96 10*3/uL High 1.45-7.50 [facility] Comment on above: Order Comment: Speci men Type: BLOOD SPECIMENOrdering Facility: [facility] Address: [address] [place] [address] Performed By: #### 5 7021-8 ####[facility] [id number] [place] [address] [place] Neutrophils/100 WBC (Bld) 73.5 % Normal [facility] Comment on above: Order Comment: Speci men Type: BLOOD SPECIMENOrdering Facility: [facility] Address: [address] [place] [address] Performed By: #### 5 7021-8 ####[facility] [id number] [place] [address] [place] Nucleated RBC (Bld) [#/Vol] 10*3/uL Normal <0.01 [facility] Comment on above: Order Comment: Speci men Type: BLOOD SPECIMENOrdering Facility: [facility] Address: [address] [place] [address] Performed By: #### 5 7021-8 ####[facility] [id number] [place] [address] [place] Nucleated RBC/100 WBC (Bld) [Ratio] 0.0 /100 WBC Normal [facility] Comment on above: Order Comment: Speci men Type: BLOOD SPECIMENOrdering Facility: [facility] Address: [address] [place] [address] Performed By: #### 5 7021-8 ####[facility] [id number] [place] [address] [place] Platelet mean volume (Bld) [Entitic vol] 9.5 fL Normal 9.0-12.7 [facility] [facility] Comment on above: Order Comment: Speci men Type: BLOOD SPECIMENOrdering Facility: [facility] Address: [address] [place] [address] Performed By: #### 5 7021-8 ####[facility] [id number] [place] [address] [place] Platelets (Bld) [#/Vol] 281 10*3/uL Normal 150-400 [facility] Comment on above: Order Comment: Speci men Type: BLOOD SPECIMENOrdering Facility: [facility] Address: [address] [place] [address] Performed By: #### 5 7021-8 ####[facility] [id number] [place] [address] [place] RBC (Bld) [#/Vol] 4.40 10*6/uL Normal 3.90-5.20 [facility] Comment on above: Order Comment: Speci men Type: BLOOD SPECIMENOrdering Facility: [facility] Address: [address] [place] [address] Performed By: #### 5 7021-8 ####[facility] [id number] [place] [address] [place] WBC (Bld) [#/Vol] 10.83 10*3/uL Normal 3.70-11.00 [facility] Comment on above: Order Comment: Speci men Type: BLOOD SPECIMENOrdering Facility: [facility] Address: [address] [place] [address] Performed By: #### 5 7021-8 ####[facility] [id number] [place] [address] [place] GESTATIONAL GLUCOSE SCREEN, 1-HOUR, 50 GRAM, NON-FASTINGOrdered By: Amada Fitzgerald on 02-21-2025 Glucose [Mass/Vol] 138 mg/dL High 74 - 134 mg/dL [facility] Comment on above: [place] [employer] (Sen/Lynnstan) guidelines state a gestational diabetes mellitus positive screen is made, in women not previously diagnosed with overt diabetes, when the 1 hr plasma glucose level is equal to or above 140 mg/dL. [facility] [employer] [facility] recommends a 135 mg/dL cutoff. Interpretation and review of laboratory results Abnormal [facility] GESTATIONAL GLUCOSE SCREEN, 1-HOUR, 50 GRAM, NON-FASTINGon 02-21-2025 Glucose [Mass/Vol] 138 mg/dL High 74-134 [facility] Comment on above: Order Comment: Cheryl raza Type: BLOOD SPECIMENOrdering Facility: [facility] Address: [address] [place] [address] Result Comment: [facility] Congress of Obstetricians and Gynecologists (Sen/Ruthyan) guidelines state a gestational diabetes mellitus positive screen is made, in women not previously diagnosed with overt diabetes, when the 1 hr plasma glucose level is equal to or above 140 mg/dL. [facility] [employer] [facility] [place] recommends a 135 mg/dL cutoff. Performed By: #### G LTGST ####[facility] [id number] [place] [address] [place] Reagin and Treponema pallidu m IgG and IgM [Interp]on 02-21-2025 T. pallidum IgG+IgM IA Ql (S) Non-Reactive Normal Nonreactive [facility] Comment on above: Order Comment: Speci men Type: BLOOD SPECIMEN Ordering Facility: [facility] Address: [address] [place] [address] Performed By: #### 2 4323-8 #### [facility] CLIA [id number] [address] [place] [address] [place] Reagin+T pallidum IgG+IgM Se rPl-Impon 02-21-2025 Reagin and Treponema pallidum IgG and IgM [Interp] Cannot exclude recent Treponemal infection if specimen collected within 7-10 days after appearance of suspect lesions or 2-3 weeks after an exposure. Clinical correlation is required. Normal [facility] Comment on above: Order Comment: Speci men Type: BLOOD SPECIMEN Ordering Facility: [facility] Address: [address] [place] [address] Performed By: #### 2 4323-8 #### [facility] CLIA [id number] [address] [place] [address] [place] Examination level ultrasound on 12-30-2024 Indication Detailed anatomic survey Maternal obesity, BMI >35 Impression REMOTE READ The patient is referred for a detailed anatomic survey. - Single, live, intrauterine . - biometry is consistent with the established gestational age. - No malformations were visualized on a complete detailed anatomic survey. - The amniotic fluid volume is normal amount. - The placenta is anterior, fundal. - The Transabdominal cervical length measures 38.1 mm with no evidence of funneling or other dynamic changes. - Not all structural malformations can be detected by ultrasound examination. Recommendations Additional follow-up as clinically indicated. Maternal Assessment Height 173 cm Height (ft) 5 ft Height (in) 8 in Physical Exam Initial weight (lb) 244 lb Initial BMI 37.10 kg/m Maternal assessment other: 2 Para 1 Method Transabdominal ultrasound examination. View: Suboptimal view: limited by position Block . Number of fetuses: 1 Dating LMP on: 07/22/2024 GA by LMP 22 w + 4 d AMADOR by LMP: 04/28/2025 GA by prior assessment 20 w + 3 d AMADOR by prior assessment: 05/13/2025 Ultrasound examination on: 12/27/2024 GA by U/S based upon: AC, BPD, Femur, HC GA by U/S 21 w + 6 d AMADOR by U/S: 05/03/2025 Assigned: based on stated AMADOR, selected on 12/27/2024 Assigned GA 20 w + 3 d Assigned AMADOR: 05/13/2025 General Evaluation Cardiac activity present. FHR 155 bpm. movements: present. Presentation: cephalic Placenta: Placental site: anterior, fundal Umbilical cord: Cord vessels: 3 vessel cord Amniotic fluid: Amount of AF: normal amount. MVP 5.1 cm Growth Overview Exam date GA BPD (mm) HC (mm) AC (mm) FL (mm) HL (mm) EFW (g) 12/27/2024 20w 3d 50.3 80% 193 81% 175.2 94% 36.9 95% 35.9 97% 470 99% Biometry Standard BPD 50.3 mm 21w 2d 80% Hadlock OFD 70.3 mm 21w 6d >99% Nicolaides HC 193.0 mm 21w 4d 81% Sha Cerebellum tr 23.4 mm 21w 4d 95% Hill Nuchal fold 5.2 mm AC 175.2 mm 22w 3d 94% Hadlock Femur 36.9 mm 22w 0d 95% Sha Humerus 35.9 mm 22w 4d 97% Sha EFW 470 g 21w 6d 99% Hadlock EFW (lb) 1 lb EFW (oz) 1 oz EFW by: Hadlock (HC-AC-FL) Extended Technical Sales Representatives 6.3 mm CM 4.9 mm 45% Nicolaides Extremities / Bony Struc FL / HC 0.19 55% Hadlock Other Structures FHR 155 bpm Anatomy Cranium: normal Lateral ventricles: normal Choroid plexus: normal Midline falx: normal Cavum septi pellucidi: normal Cerebellum: normal Cisterna magna: normal Head / Neck Vermis: normal Neck: normal Nuchal fold: normal Lips: normal Profile: normal Nose: normal Face Maxilla: normal Mandible: normal Orbits: normal Lens: normal 4-chamber view: normal RVOT view: normal LVOT view: normal 3-vessel view: normal 1-fjbtum-qeffyqo view: normal Heart / Thorax Situs: situs solitus (normal) Aortic arch view: normal SVC: normal IVC: normal Cardiac axis: normal Rt lung: normal Lt lung: normal Diaphragm: normal Cord insertion: normal Stomach: normal Kidneys: normal Bladder: normal Genitals: normal Abdomen Abdom. wall: normal Cervical spine: normal Thoracic spine: normal Lumbar spine: normal Sacral spine: normal Arms: normal Legs: normal Rt upper arm: normal Rt forearm: normal Rt hand: normal Rt fingers: normal Lt upper arm: normal Lt forearm: normal Lt hand: normal Lt fingers: normal Rt upper leg: normal Rt lower leg: normal Rt foot: normal Lt upper leg: normal Lt lower leg: normal Lt foot: normal sex: male Wants to know sex: yes Maternal Structures Uterus / Cervix Uterus: Visualized Cervix: Visualized Approach: Transabdominal Cervical length 38.1 mm Other: Patient declined transvaginal ultrasound for cervical length. Ovaries / Tubes / Adnexa Rt ovary: Visualized Lt ovary: Visualized Performed By: Laura Olvera RDMS, RVT Read By: Regina Covington M.D. MATERNAL MEDICINE [facility] Examination level ultrasound on 12-27-2024 Radiology Study observation (narrative) [facility] CNOVon 12-04-2024 CNOV Office Visit (UCWSTR ) -- MICHAEL PALMA ([id number]) 01 F [facility] Date Time Provider Department 12/04/24 1:15 PM JOSEPH ALANIZ [facility] During your visit today, we recorded the following information about you: Temperature Pulse Respiration Blood pressure 98.9 degrees 93/minute 18/minute 124/76 Weight 106.2 kg Joseph Alaniz APRN.CANDY CUTTER MACHINE 12/04/2024 1:34 PM Signed Subjective HPI Nontoxic-appearing 24-year-old female who is 17 weeks presents urgent care chief complaint sinus pressure cough. Has had cold-like symptoms for 3 weeks. States over the last 4 to 5 days sinus pressure has worsened. OTC medication Tylenol helps some. Denies any fevers. No productive cough chest pain or shortness of breath. No hemoptysis. No nausea or vomiting that is new. No change in urinary patterns. Past medical history prescription medications allergies reviewed. .Patient presents with: Sinus Problem: sinus pressure, drainage, ear pressure, chest congestion, cough x 3 weeks, 17 weeks PAST MEDICAL HISTORY Diagnosis Date Allergic rhinitis Anemia During first Asthma Concussion 2018 Depression Elevated liver enzymes 09/2019 Due to mono History of depression First History of depression Hx of preeclampsia, prior , currently During first Hx of preeclampsia, prior , currently Mononucleosis 09/2019 Positive JESUS (antinuclear antibody) Postconcussive syndrome PAST SURGICAL HISTORY Procedure Laterality Date NEXPLANON INSERTION 06/14/2022 NEXPLANON REMOVAL 05/06/2024 ALLERGIES Patient has no known allergies. MEDICATIONS ondansetron orally disintegrating (ZOFRAN ODT) 4 mg disintegrating tablet Take 1 tablet by mouth every 8 hours as needed for nausea/vomiting. aspirin, enteric coated (ECOTRIN LOW STRENGTH) 81 mg EC tablet Take 1 tablet by mouth once daily. promethazine (PHENERGAN) 25 mg tablet Take 1 tablet by mouth every 6 hours as needed. famotidine (PEPCID) 20 mg tablet Take 1 tablet by mouth two times a day. 25/iron/folate 6/dha (PRENA1 ORAL) Take 1 tablet by mouth once daily. albuterol HFA (PROAIR HFA) 90 mcg/actuation inhaler Inhale 2 Puffs as instructed every 6 hours as needed. FAMILY HISTORY Problem Relation Age of Onset No Known Problems Mother No Known Problems Father Alzheimer's Disease Maternal Grandmother Heart Maternal Grandfather Heart Paternal Grandfather No Known Problems Half-sister No Known Problems Half-sister No Known Problems Half-brother Social History Tobacco Use Smoking status: Former Current packs/day: 0.00 Types: Cigarettes Quit date: 06/26/2019 Years since quittin.4 Smokeless tobacco: Never Tobacco comments: sometimes smokes . sometimes hits boyfriends vape Vaping Use Vaping status: Former Substances: Nicotine, Flavoring Devices: Disposable Substance Use Topics Alcohol use: Not Currently Alcohol/week: 1.0 standard drink of alcohol Types: 1 Glasses of wine per week Drug use: Not Currently Types: Marijuana BP 124/76 Pulse 93 Temp 37.2 ?C (98.9 ?F) Resp 18 Wt 106.2 kg (234 lb 2.1 oz) LMP 07/22/2024 SpO2 98% BMI 36.10 kg/m? Review of Systems Constitutional: Negative for chills, fever and malaise/fatigue. HENT: Positive for congestion and sinus pain. Negative for ear discharge, ear pain and sore throat. Eyes: Negative for blurred vision, pain, discharge and redness. Respiratory: Positive for cough. Negative for hemoptysis, sputum production, shortness of breath, wheezing and stridor. Cardiovascular: Negative for chest pain. Gastrointestinal: Negative for abdominal pain, diarrhea, nausea and vomiting. Musculoskeletal: Negative for myalgias. Skin: Negative for itching and rash. Neurological: Negative for dizziness and headaches. Objective Physical Exam HENT: Head: Normocephalic. Jaw: No trismus, tenderness, swelling or pain on movement. Right Ear: Tympanic membrane, ear canal and external ear normal. Left Ear: Tympanic membrane, ear canal and external ear normal. Nose: Congestion present. Right Sinus: Maxillary sinus tenderness present. Left Sinus: Maxillary sinus tenderness present. Mouth/Throat: Mouth: Mucous membranes are moist. Pharynx: Oropharynx is clear. Uvula midline. No oropharyngeal exudate or posterior oropharyngeal erythema. Eyes: Pupils: Pupils are equal, round, and reactive to light. Cardiovascular: Rate and Rhythm: Normal rate. Pulmonary: Effort: Pulmonary effort is normal. No accessory muscle usage, respiratory distress or retractions. Breath sounds: No stridor. No wheezing, rhonchi or rales. Abdominal: Palpations: Abdomen is soft. Tenderness: There is no abdominal tenderness. There is no guarding or rebound. Musculoskeletal: Cervical back: No (more content not included)... Normal [facility] MICHAEL [facility] ([id number]) 01 F [facility] Date Time Provider Department 11/12/24 [place] [facility] During your visit today, we recorded the following information about you: Lida Elaine RN 11/12/2024 8:43 AM Signed Maternity prescription order form received from [facility] for breast pump and supplies and given to for signature. ALEXANDRO Mujica Trisha, RN 11/19/2024 9:37 AM Signed Order was signed and faxed on 11/12/24. Rachael Elena RN Allergies As of Date: 11/12/2024 (No Known Allergies) Date Reviewed: 11/06/2024 Reviewed by: Ni Hahn LPN - Fully Assessed Reason for Visit: Breast Pump [Other] Prescriptions as of 11/19/2024 - ondansetron orally disintegrating (ZOFRAN ODT) 4 mg disintegrating tablet Take 1 tablet by mouth every 8 hours as needed for nausea/vomiting. - aspirin, enteric coated (ECOTRIN LOW STRENGTH) 81 mg EC tablet Take 1 tablet by mouth once daily. - promethazine (PHENERGAN) 25 mg tablet Take 1 tablet by mouth every 6 hours as needed. - famotidine (PEPCID) 20 mg tablet Take 1 tablet by mouth two times a day. - 25/iron/folate 6/dha (PRENA1 ORAL) Take 1 tablet by mouth once daily. - albuterol HFA (PROAIR HFA) 90 mcg/actuation inhaler Inhale 2 Puffs as instructed every 6 hours as needed. Problem List As Of Date 11/12/2024 Noted Resolved Headache, unspecified headache type [R51.9] 06/28/2018 Post concussion syndrome [F07.81] 06/28/2018 10/11/2019 Elevated liver enzymes [R74.8] 10/10/2019 09/25/2024 Jaundice [R17] 10/10/2019 11/10/2020 Asthma affecting in first trimester [* JESUS positive [R76.8] Mononucleosis [B27.90] 09/201909/25/2024 Hepatitis A antibody positive [R76.8] 10/25/2019 11/10/2020 Anxiety and depression [F41.9, F32.A] 11/10/2020 Obesity complicating , first trimester*04/05/2021 Kidney stone on right side [N20.0] 11/29/2021 11/01/2024 Hx of preeclampsia, prior , currently * History of depression [Z87.59, Z86.5* Nausea and vomiting during [O21.9] 09/25/2024 Heartburn during in first trimester [*09/25/2024 Family history of Down syndrome [Z82.79] 09/25/2024 Family history of autism [Z81.8] 09/25/2024 with uncertain dates in first trimest*09/25/2024 Encounter for supervision of high risk pregnanc*09/25/2024 Encounter Status:Closed by RACHAEL ELENA on 11/19/24 Normal [facility] BACTERIAL VAGINOSIS NAATon 0 11-06-2024 Lactobacillus crispatus+gasseri+j ensenii + Gardnerella vaginalis + Atopobium vaginae rRNA LOTTIE+probe Ql (Vag fld) Not detected Normal Not detected [facility] Comment on above: Order Comment: Speci men Type: BLOOD SPECIMEN [facility]ing Facility: [facility] Address: [address] [place] [address] Performed By: #### 2 4323-8 #### [facility] CLIA [id number] [address] [place] [address] [place] Bacteria Ur Culton Bacteria identified Cx Nom (U) ORGANISM ID: 1 50,000-<100,000 CFU/ml Normal urogenital ck Normal [facility] Comment on above: Performed By: #### 6 30-4 ####[facility] LABCLIA [id number] [place] [address] [place] C. trachomatis+N. gonorrhoea e DNA LOTTIE+probe Ql (Unsp spec)on 11-06-2024 C. trachomatis rRNA LOTTIE+probe Ql (Unsp spec) Not detected Normal Not detected [facility] Comment on above: Order Comment: Speci men Type: BLOOD SPECIMEN Ordering Facility: [facility] Address: [address] [place] [address] Performed By: #### 2 4323-8 #### [facility] CLIA [id number] [address] [place] [address] [place] N. gonorrhoeae rRNA LOTTIE+probe Ql (Unsp spec) Not detected Normal Not detected [facility] Comment on above: Order Comment: Speci men Type: BLOOD SPECIMEN Ordering Facility: [facility] Address: [address] [place] [address] Performed By: #### 2 4323-8 #### [facility] CLIA [id number] [address] [place] [address] [place] ALIREZA/TRICHOMONAS NAATon 0 11-06-2024 C. glabrata RNA LOTTIE+probe Ql (Vag fld) Not detected Normal Not detected [facility] Comment on above: Order Comment: Speci men Type: SWABOrdering Facility: [facility] Address: [address] [place] [address] Performed By: #### C VTV ####[facility] LABCLIA [id number] [place] [address] [place] Alireza sp DNA LOTTIE+probe Ql (Vag fld) Detected Abnormal Not detected [facility] Comment on above: Order Comment: Speci men Type: SWABOrdering Facility: [facility] Address: [address] [place] [address] Result Comment: The Alireza species group target includes C. albicans, C. tropicalis, C. parapsilosis, and C. dubliniensis. Performed By: #### C VTV ####[facility] LABCLIA [id number] [place] [address] [place] T. vaginalis DNA LOTTIE+probe Ql (Unsp spec) Not detected Normal Not detected [facility] Comment on above: Order Comment: Speci men Type: SWABOrdering Facility: [facility] Address: [address] [place] [address] Performed By: #### C VTV ####[facility] LABROCHELLE [id number] [place] [address] [place] CNOVon 11-06-2024 CNOV Office Visit (UCWSTR ) -- MICHAEL PALMA ([id number]) 01 F [facility] Date Time Provider Department 11/06/24 5:00 PM IGNACIA RIBEIRO [facility] During your visit today, we recorded the following information about you: Temperature Pulse Respiration Blood pressure 98.4 degrees 88/minute 18/minute 118/78 Weight 107.5 kg Ignacia Ribeiro APRN.CANDY CUTTER MACHINE 11/06/2024 5:37 PM Signed This note was created using NoteWriter. Subjective Michael Palma is a 24 year old female. 24 year old female with PMH asthma presents for female concern. Acute onset 3 days ago +vaginal discomfort +vaginal discharge +yellow/green +malodorous +vaginal itching +urinary frequency +N/V (mornings which is baseline for patient) Denies vaginal bleeding Denies dysuria Denies urgency , 13 weeks Recently sexually active Endorses history of yeast infections in past, and this feels similar The history is provided by the patient. No language and literature division chair was used. Vaginal Problem This is a new problem. The current episode started in the past 7 days. The problem occurs constantly. The problem has been unchanged. Pertinent negatives include no abdominal pain, anorexia, arthralgias, change in bowel habit, chest pain, chills, congestion, coughing, diaphoresis, fatigue, fever, headaches, joint swelling, myalgias, nausea, neck pain, numbness, rash, sore throat, swollen glands, urinary symptoms, vertigo, visual change, vomiting or weakness. Nothing aggravates the symptoms. She has tried nothing for the symptoms. The treatment provided no relief. PAST MEDICAL HISTORY Diagnosis Date Allergic rhinitis Anemia During first Asthma Concussion 2019 Depression Elevated liver enzymes 09/2019 Due to mono History of depression First History of depression Hx of preeclampsia, prior , currently During first Hx of preeclampsia, prior , currently Mononucleosis 09/2019 Positive JESUS (antinuclear antibody) Postconcussive syndrome PAST SURGICAL HISTORY Procedure Laterality Date NEXPLANON INSERTION 06/14/2022 NEXPLANON REMOVAL 05/06/2024 ALLERGIES Patient has no known allergies. MEDICATIONS ondansetron orally disintegrating (ZOFRAN ODT) 4 mg disintegrating tablet Take 1 tablet by mouth every 8 hours as needed for nausea/vomiting. aspirin, enteric coated (ECOTRIN LOW STRENGTH) 81 mg EC tablet Take 1 tablet by mouth once daily. promethazine (PHENERGAN) 25 mg tablet Take 1 tablet by mouth every 6 hours as needed. famotidine (PEPCID) 20 mg tablet Take 1 tablet by mouth two times a day. 25/iron/folate 6/dha (PRENA1 ORAL) Take 1 tablet by mouth once daily. albuterol HFA (PROAIR HFA) 90 mcg/actuation inhaler Inhale 2 Puffs as instructed every 6 hours as needed. FAMILY HISTORY Problem Relation Age of Onset No Known Problems Mother No Known Problems Father Alzheimer's Disease Maternal Grandmother Heart Maternal Grandfather Heart Paternal Grandfather No Known Problems Half-sister No Known Problems Half-sister No Known Problems Half-brother Social History Tobacco Use Smoking status: Former Current packs/day: 0.00 Types: Cigarettes Quit date: 06/26/2019 Years since quittin.3 Smokeless tobacco: Never Tobacco comments: sometimes smokes . sometimes hits boyfriends vape Vaping Use Vaping status: Former Substances: Nicotine, Flavoring Devices: Disposable Substance Use Topics Alcohol use: Not Currently Alcohol/week: 1.0 standard drink of alcohol Types: 1 Glasses of wine per week Drug use: Not Currently Types: Marijuana Review of Systems Constitutional: Negative for chills, diaphoresis, fatigue and fever. HENT: Negative for congestion and sore throat. Respiratory: Negative for cough. Cardiovascular: Negative for chest pain. Gastrointestinal: Negative for abdominal pain, anorexia, change in bowel habit, nausea and vomiting. Genitourinary: Positive for vaginal discharge. Musculoskeletal: Negative for arthralgias, joint swelling, myalgias and neck pain. Skin: Negative for rash. Neurological: Negative for vertigo, weakness, numbness and headaches. Objective BP 118/78 Pulse 88 Temp 36.9 ?C (98.4 ?F) (Tympanic) Resp 18 Wt 107.5 kg (236 lb 15.9 oz) LMP 07/22/2024 SpO2 96% BMI 36.54 kg/m? Physical Exam Vitals and nursing note reviewed. Constitutional: General: She is not in acute distress. Appearance: Normal appearance. She is normal weight. She is not ill-appearing, toxic-appearing or diaphoretic. HENT: Head: Normocephalic and atraumatic. Right Ear: Ear canal and external ear normal. Left Ear: Ear canal and external ear normal. Nose: Nose normal. No congestion or rhinorrhea. Mouth/Throat: Mouth: Mucous membranes are moist. Pharynx: No oropharyngeal exudate or poste (more content not included)... Normal [facility] UA DIP, URINE (POC)on 2024 BILIRUBIN UA (POCT) Small Abnormal Negative [facility] CLARITY UA (POCT) Clear [facility] COLOR UA (POCT) Yellow [facility] GLUCOSE UA (POCT) Negative Negative mg/dL [facility] Hemoglobin Ql (U) Negative Negative [facility] Interpretation and review of laboratory results Abnormal [facility] KETONE UA (POCT) 15 mg/dL Abnormal Negative [facility] LEUKOCYTES UA (POCT) Trace Abnormal Negative [facility] NITRITE UA (POCT) Negative Negative [facility] PH UA (POCT) 5.5 4.5 - 8.0 [facility] Protein Ql (U) 30 mg/dL Abnormal Negative [facility] SPECIFIC GRAVITY UA (POCT) >=1.030 1.005 - 1.030 [facility] UROBILINOGEN UA (POCT) 0.2 Normal E.U./dL [facility] Location:[facility], [address] [place] [address], [place], [address] [facility] POINT OF CARE [facility] CBC W Auto Differential pane l (Bld)on 11-01-2024 Basophils (Bld) [#/Vol] 0.03 10*3/uL Normal <0.11 [facility] Comment on above: Order Comment: Speci men Type: BLOOD SPECIMENOrdering Facility: [facility] Address: [address] [place] [address] Performed By: #### 5 7021-8 ####[facility] ELENOWNCLIA [id number] [place] [address] [place] Basophils/100 WBC (Bld) 0.3 % Normal [facility] Comment on above: Order Comment: Speci men Type: BLOOD SPECIMENOrdering Facility: [facility] Address: [address] [place] [address] Performed By: #### 5 7021-8 ####[facility]IT[facility]IA [id number] [place] [address] [place] Differential cell count method Nom (Bld) Auto Normal [facility] Comment on above: Order Comment: Speci men Type: BLOOD SPECIMENOrdering Facility: [facility] Address: [address] [place] [address] Performed By: #### 5 7021-8 ####[facility]PITALLIA [id number] [place] [address] [place] Eosinophils (Bld) [#/Vol] 0.09 10*3/uL Normal <0.46 [facility] Comment on above: Order Comment: Speci men Type: BLOOD SPECIMENOrdering Facility: [facility] Address: [address] [place] [address] Performed By: #### 5 7021-8 ####[facility] GORDAWNCLIA [id number] [place] [address] [place] Eosinophils/100 WBC (Bld) 0.9 % Normal [facility] Comment on above: Order Comment: Speci men Type: BLOOD SPECIMENOrdering Facility: [facility] Address: [address] [place] [address] Performed By: #### 5 7021-8 ####[facility]ERNCLIA [id number] [place] [address] [place] Erythrocyte distribution width (RBC) [Ratio] 14.1 % Normal 11.5-15.0 [facility] Comment on above: Order Comment: Speci men Type: BLOOD SPECIMENOrdering Facility: [facility] Address: [address] [place] [address] Performed By: #### 5 7021-8 ####[facility]ENTERNCJOSE ROBERTOA [id number] [place] [address] [place] Hematocrit (Bld) [Volume fraction] 42.4 % Normal 36.0-46.0 [facility] Comment on above: Order Comment: Speci men Type: BLOOD SPECIMENOrdering Facility: [facility] Address: [address] [place] [address] Performed By: #### 5 7021-8 ####[facility]ENTERNCA [id number] [place] [address] [place] Hemoglobin (Bld) [Mass/Vol] 14.2 g/dL Normal 11.5-15.5 [facility] Comment on above: Order Comment: Speci men Type: BLOOD SPECIMENOrdering Facility: [facility] Address: [address] [place] [address] Performed By: #### 5 7021-8 ####[facility]ENTERNCLIA [id number] [place] [address] [place] Immature granulocytes (Bld) [#/Vol] 0.04 10*3/uL Normal <0.10 [facility] Comment on above: Order Comment: Speci men Type: BLOOD SPECIMENOrdering Facility: [facility] Address: [address] [place] [address] Performed By: #### 5 7021-8 ####[facility]ENTERNCLIA [id number] [place] [address] [place] Immature granulocytes/100 WBC (Bld) 0.4 % Normal [facility] Comment on above: Order Comment: Speci men Type: BLOOD SPECIMENOrdering Facility: [facility] Address: [address] [place] [address] Performed By: #### 5 7021-8 ####[facility] ANNCBRAYAN [id number] [place] [address] [place] Lymphocytes (Bld) [#/Vol] 2.37 10*3/uL Normal 1.00-4.00 [facility] Comment on above: Order Comment: Speci men Type: BLOOD SPECIMENOrdering Facility: [facility] Address: [address] [place] [address] Performed By: #### 5 7021-8 ####[facility] CENTERDAVID [id number] [place] [address] [place] Lymphocytes/100 WBC (Bld) 22.9 % Normal [facility] Comment on above: Order Comment: Speci men Type: BLOOD SPECIMENOrdering Facility: [facility] Address: [address] [place] [address] Performed By: #### 5 7021-8 ####[facility] CENTERDAVID [id number] [place] [address] [place] MCH (RBC) [Entitic mass] 27.4 pg Normal 26.0-34.0 [facility] Comment on above: Order Comment: Speci men Type: BLOOD SPECIMENOrdering Facility: [facility] Address: [address] [place] [address] Performed By: #### 5 7021-8 ####[facility]ENTERNCLIA [id number] [place] [address] [place] MCHC (RBC) [Mass/Vol] 33.5 g/dL Normal 30.5-36.0 [facility] Comment on above: Order Comment: Speci men Type: BLOOD SPECIMENOrdering Facility: [facility] Address: [address] [place] [address] Performed By: #### 5 7021-8 ####[facility] ELENODENVERNCLIA [id number] [place] [address] [place] MCV (RBC) [Entitic vol] 81.9 fL Normal 80.0-100.0 [facility] Comment on above: Order Comment: Speci men Type: BLOOD SPECIMENOrdering Facility: [facility] Address: [address] [place] [address] Performed By: #### 5 7021-8 ####[facility]PITALLIA [id number] [place] [address] [place] Monocytes (Bld) [#/Vol] 0.55 10*3/uL Normal <0.87 [facility] Comment on above: Order Comment: Speci men Type: BLOOD SPECIMENOrdering Facility: [facility] Address: [address] [place] [address] Performed By: #### 5 7021-8 ####[facility]PITALA [id number] [place] [address] [place] Monocytes/100 WBC (Bld) 5.3 % Normal [facility] Comment on above: Order Comment: Speci men Type: BLOOD SPECIMENOrdering Facility: [facility] Address: [address] [place] [address] Performed By: #### 5 7021-8 ####[facility]PITALLIA [id number] [place] [address] [place] Neutrophils (Bld) [#/Vol] 7.29 10*3/uL Normal 1.45-7.50 [facility] Comment on above: Order Comment: Speci men Type: BLOOD SPECIMENOrdering Facility: [facility] Address: [address] [place] [address] Performed By: #### 5 7021-8 ####[facility]ALLIA [id number] [place] [address] [place] Neutrophils/100 WBC (Bld) 70.2 % Normal [facility] Comment on above: Order Comment: Speci men Type: BLOOD SPECIMENOrdering Facility: [facility] Address: [address] [place] [address] Performed By: #### 5 7021-8 ####[facility]ENTERNCA [id number] [place] [address] [place] Nucleated RBC (Bld) [#/Vol] 10*3/uL Normal <0.01 [facility] Comment on above: Order Comment: Speci men Type: BLOOD SPECIMENOrdering Facility: [facility] Address: [address] [place] [address] Performed By: #### 5 7021-8 ####[facility]ENTERNCKANE [facility] [id number] [place] [address] [place] Nucleated RBC/100 WBC (Bld) [Ratio] 0.0 /100 WBC Normal [facility] Comment on above: Order Comment: Speci men Type: BLOOD SPECIMENOrdering Facility: [facility] Address: [address] [place] [address] Performed By: #### 5 7021-8 ####[facility]ENTERNCLIA [id number] [place] [address] [place] Platelet mean volume (Bld) [Entitic vol] 9.4 fL Normal 9.0-12.7 [facility] Comment on above: Order Comment: Speci men Type: BLOOD SPECIMENOrdering Facility: [facility] Address: [address] [place] [address] Performed By: #### 5 7021-8 ####[facility]ENTERNCLIA [id number] [place] [address] [place] Platelets (Bld) [#/Vol] 295 10*3/uL Normal 150-400 [facility] Comment on above: Order Comment: Speci men Type: BLOOD SPECIMENOrdering Facility: [facility] Address: [address] [place] [address] Performed By: #### 5 7021-8 ####[facility]ENTERNCLIA [id number] [place] [address] [place] RBC (Bld) [#/Vol] 5.18 10*6/uL Normal 3.90-5.20 [facility] Comment on above: Order Comment: Speci men Type: BLOOD SPECIMENOrdering Facility: [facility] Address: [address] [place] [address] Performed By: #### 5 7021-8 ####[facility] HOSPITALRaman [id number] [place] [address] [place] WBC (Bld) [#/Vol] 10.37 10*3/uL Normal 3.70-11.00 [facility] Comment on above: Order Comment: Speci men Type: BLOOD SPECIMENOrdering Facility: [facility] Address: [address] [place] [address] Performed By: #### 5 7021-8 ####[facility]ENTERNCLIA [id number] [place] [address] [place] Comprehensive metabolic 2000 panelon 11-01-2024 Albumin [Mass/Vol] 4.6 g/dL Normal 3.9-4.9 [facility] Comment on above: Order Comment: Speci men Type: BLOOD SPECIMEN Ordering Facility: [facility] Address: [address] [place] [address] Performed By: #### 2 4323-8 #### [facility] CLIA [id number] [address] [place] [address] [place] ALP [Catalytic activity/Vol] 73 U/L Normal 34-123 [facility] Comment on above: Order Comment: Speci men Type: BLOOD SPECIMEN Ordering Facility: [facility] Address: [address] [place] [address] Performed By: #### 2 4323-8 #### [facility] [place] CLIA [id number] [address] [place] [address] [facility] ALT [Catalytic activity/Vol] 16 U/L Normal 7-38 [facility] Comment on above: Order Comment: Speci men Type: BLOOD SPECIMEN Ordering Facility: [facility] Address: [address] [place] [address] Performed By: #### 2 4323-8 #### [facility] CLIA [id number] [address] [place] [address] [place] Anion gap [Moles/Vol] 12 mmol/L Normal 8-15 [facility] Comment on above: Order Comment: Speci men Type: BLOOD SPECIMEN Ordering Facility: [facility] Address: [address] [place] [address] Performed By: #### 2 4323-8 #### [facility] CLIA [id number] [address] [place] [address] [place] AST [Catalytic activity/Vol] 16 U/L Normal 13-35 [facility] Comment on above: Order Comment: Speci men Type: BLOOD SPECIMEN Ordering Facility: [facility] Address: [address] [place] [address] Performed By: #### 2 4323-8 #### [facility] CLIA [id number] [address] [place] [address] [place] Bilirubin [Mass/Vol] 0.5 mg/dL Normal 0.2-1.3 [facility] Comment on above: Order Comment: Speci men Type: BLOOD SPECIMEN Ordering Facility: [facility] Address: [address] [place] [address] Performed By: #### 2 4323-8 #### [facility] CLIA [id number] [address] [place] [address] [place] Calcium [Mass/Vol] 9.7 mg/dL Normal 8.5-10.2 [facility] Comment on above: Order Comment: Speci men Type: BLOOD SPECIMEN Ordering Facility: [facility] Address: [address] [place] [address] Performed By: #### 2 4323-8 #### [facility] CLIA [id number] [address] [place] [address] [place] Chloride [Moles/Vol] 101 mmol/L Normal 98-107 [facility] Comment on above: Order Comment: Speci men Type: BLOOD SPECIMEN Ordering Facility: [facility] Address: [address] [place] [address] Performed By: #### 2 4323-8 #### [facility] CLIA [id number] [address] [place] [address] [place] CO2 [Moles/Vol] 22 mmol/L Normal 22-30 [facility] Comment on above: Order Comment: Speci men Type: BLOOD SPECIMEN Ordering Facility: [facility] Address: [address] [place] [address] Performed By: #### 2 4323-8 #### [facility] CLIA [id number] [address] [place] [address] [place] Creatinine [Mass/Vol] 0.60 mg/dL Normal 0.58-0.96 [facility] Comment on above: Order Comment: Speci men Type: BLOOD SPECIMEN Ordering Facility: [facility] Address: [address] [place] [address] Performed By: #### 2 4323-8 #### [facility] CLIA [id number] [address] [place] [address] [place] Creatinine and Glomerular filtration rate.predicted panel (S/P/Bld) 130 mL/min/1.73m??? Normal >=60 [facility] Comment on above: Order Comment: Speci men Type: BLOOD SPECIMEN Ordering Facility: [facility] Address: [address] [place] [address] Result Comment: [place]bella mated Glomerular Filtration Rate (eGFR) is calculated using the 2020 CKD-EPI creatinine equation. This equation utilizes serum creatinine, sex, and age as parameters. The creatinine assay has traceable calibration to isotope dilution-mass spectrometry. Refer to KDIGO guidelines for clinical interpretation. In patients with unstable renal function, e.g. those with acute kidney injury, the eGFR may not accurately reflect actual GFR. Performed By: #### 2 4323-8 #### [facility] EMERALD COASTIA [id number] [address] [place] [address] [place] Glucose [Mass/Vol] 100 mg/dL High 74-99 [facility] Comment on above: Order Comment: Cheryl raza Type: BLOOD SPECIMEN Ordering Facility: [facility] Address: [address] [place] [address] Result Comment: The [place] Diabetes Association (ADA) provides guidance for cutoff values for fasting glucose and random glucose. The ADA defines fasting as no caloric intake for at least 8 hours. Fasting plasma glucose results between 100 to 125 mg/dL indicate increased risk for diabetes (prediabetes). Fasting plasma glucose results greater than or equal to 126 mg/dL meet the criteria for diagnosis of diabetes. In the absence of unequivocal hyperglycemia, results should be confirmed by repeat testing. In a patient with classic symptoms of hyperglycemia or hyperglycemic crisis, random plasma glucose results greater than or equal to 200 mg/dL meet the criteria for diagnosis of diabetes. Reference: Standards of Medical Care in Diabetes 2016, [place] Diabetes Association. Diabetes Care. 2016.39(Suppl 1). Performed By: #### 2 4323-8 #### [facility] EMERALD COASTIA [id number] [address] [place] [address] [place] Potassium [Moles/Vol] 3.6 mmol/L Low 3.7-5.1 [facility] Comment on above: Order Comment: Cheryl raza Type: BLOOD SPECIMEN Ordering Facility: [facility] Address: [address] [place] [id number] Performed By: #### 2 4323-8 #### [facility] CLIA [id number] [address] [place] [address] [place] Protein [Mass/Vol] 7.6 g/dL Normal 6.3-8.0 [facility] Comment on above: Order Comment: Speci men Type: BLOOD SPECIMEN Ordering Facility: [facility] Address: [address] [place] [address] Performed By: #### 2 4323-8 #### [facility] CLIA [id number] [address] [place] [address] [place] Sodium [Moles/Vol] 135 mmol/L Low 136-144 [facility] Comment on above: Order Comment: Speci men Type: BLOOD SPECIMEN Ordering Facility: [facility] Address: [address] [place] [address] Performed By: #### 2 4323-8 #### [facility] CLIA [id number] [address] [place] [address] [place] Urea nitrogen [Mass/Vol] 7 mg/dL Normal 7-21 [facility] Comment on above: Order Comment: Speci men Type: BLOOD SPECIMEN [facility]ing Facility: [facility] Address: [address] [place] [address] Performed By: #### 2 4323-8 #### [facility] CLIA [id number] [address] [place] [address] [place] nuchal translucency me asured by USon 11-01-2024 Indication First trimester anatomic survey Maternal obesity, BMI >35 Impression The patient is referred for a first trimester anatomy scan including nuchal translucency measurement as clinically indicated. - Single, live, intrauterine . - Keasbey rump length measurement is consistent with the established gestational age. - A qualitative screen of the nuchal translucency and other anatomic structures was unremarkable on a complete first trimester anatomic assessment. - Not all structural malformations can be detected by ultrasound examination. - A standard anatomic survey at 16 weeks and a detailed exam at 20 weeks is recommended for increased risk. Recommendations - A standard anatomic survey at 16 weeks and a detailed exam at 20 weeks for increased risk. - Additional follow up as clinically indicated. Maternal Assessment Height 173 cm Height (ft) 5 ft Height (in) 8 in Physical Exam Initial weight (lb) 244 lb Initial BMI 37.10 kg/m Maternal assessment other: 2 Para 1 Method Transabdominal ultrasound examination Block . Number of fetuses: 1 Dating LMP on: 07/22/2024 GA by LMP 14 w + 4 d AMADOR by LMP: 04/28/2025 GA by prior assessment 12 w + 3 d AMADOR by prior assessment: 05/13/2025 Ultrasound examination on: 11/01/2024 GA by U/S based upon: CRL GA by U/S 13 w + 1 d AMADOR by U/S: 05/08/2025 Assigned: based on stated AMADOR, selected on 11/01/2024 Assigned GA 12 w + 3 d Assigned AMADOR: 05/13/2025 General Evaluation Cardiac activity present Placenta: anterior Cord vessels: 3 vessel cord Amniotic fluid: normal amount Biometry Standard FHR 155 bpm CRL 68.7 mm 13w 1d 87% [facility] First Trimester Anatomy Calvarium: normal Falx cerebri: normal Choroid plexus: normal Profile: normal Nasal bone: normal Retronasal triangle: normal Maxilla: normal Mandible: normal Nuchal translucency: Unremarkable Situs: normal Cardiac position: normal Cardiac axis: normal 4-chamber view: normal 4-chamber view with color: normal 6-xrpjeb-hdgthpi view: normal Abdominal cord insertion: normal Stomach: normal Kidneys: normal Bladder: normal Color doppler of perivesical umbilical arteries: normal Vertebral alignment: normal Arms: normal Hands: normal Legs: normal Feet: normal Maternal Structures Uterus / Cervix Uterus: Visualized Uterus length 143 mm Uterus width 110 mm Uterus height 81 mm Uterus Vol 665.3 cm Ovaries / Tubes / Adnexa Rt ovary: Not visualized Lt ovary: Visualized Lt ovary D1 25 mm Lt ovary D2 27 mm Lt ovary D3 14 mm Lt ovary Vol 5.2 cm Performed By: Laura Olvera RDMS, RVT Read By: Torri Pastor M.D. MATERNAL MEDICINE [facility] Radiology Study observation (narrative) [facility] HBV surface Ag Ser Qlon 10-19 HBV surface Ag Ql (S) Negative Normal Negative [facility] Comment on above: Order Comment: Speci men Type: BLOOD SPECIMENOrdering Facility: [facility] Address: [address] [place] [address] Performed By: #### 5 195-3, 75388-4, 01831-6 ####[facility] LABCLIA [id number] [place] [address] [place] HCV Ab Ser Qlon 11-01-2024 HCV Ab Ql (S) Non-Reactive Normal Nonreactive [facility] Comment on above: Order Comment: Speci men Type: BLOOD SPECIMENOrdering Facility: [facility] Address: [address] [place] [address] Result Comment: The result suggests no evidence of active infection with Hepatitis C virus. Should recent infection be suspected, repeat testing may be considered 4-6 weeks after this draw. Performed By: #### 1 6128-1 ####[facility] LABORATORYCLIA [id number] [place] [address] [place] HIV 1+2 Ab IA Qlon HIV 1 and 2 Ab IA.rapid Nom (S/P/Bld) Normal [facility] Comment on above: Order Comment: Speci men Type: BLOOD SPECIMENOrdering Facility: [facility] Address: [address] [place] [address] Result Comment: Test not indicated. Performed By: #### 5 195-3, 78340-7, 58239-4 ####[facility] LABCLIA [id number] [place] [address] [place] HIV 1+2 Ab+HIV1 p24 Ag IA Ql Non-Reactive Normal Nonreactive [facility] Comment on above: Order Comment: Speci men Type: BLOOD SPECIMENOrdering Facility: [facility] Address: [address] [place] [address] Performed By: #### 5 195-3, 06930-8, 10250-2 ####[facility] LABCLIA [id number] [place] [address] [place] HIV immunoassay testing algorithm interpretation (S/P/Bld) [Interp] Normal [facility] Comment on above: Order Comment: Speci men Type: BLOOD SPECIMENOrdering Facility: [facility] Address: [address] [place] [address] Result Comment: No e vidence of HIV-1 or HIV-2 infection. Should recent infection be suspected, repeat testing may be considered 2-3 weeks after this draw. [place] Rev. Code 3701.243(E): This information has been disclosed to you from confidential records protected from disclosure by state law. ???You shall make no further disclosure of this information without the specific, written, and informed release of the individual to whom it pertains or as otherwise permitted by state law. A general authorization for the release of medical or other information is not sufficient for the purpose of the release of HIV test results or diagnoses. Performed By: #### 5 195-3, 32428-7, 31527-2 ####[facility] LABCLIA [id number] [place] [address] [place] HbA1c (Bld)on 11-01-2024 Average glucose Estimated from glycated hemoglobin (Bld) [Mass/Vol] 94 mg/dL Normal [facility] Comment on above: Order Comment: Efrai luz marina Type: BLOOD SPECIMENOrdering Facility: [facility] Address: [address] [place] [address] Result Comment: eAG: (Estimated average glucose) is a calculated value from HgbA1c and is client services representative of the average blood glucose level in the last 2-3 month period. Performed By: #### 5 5454-3 ####[facility] LABCLIA [id number] [place] [address] [place] HbA1c (Bld) [Mass fraction] 4.9 % Normal 4.3-5.6 [facility] Comment on above: Order Comment: Cheryl raza Type: BLOOD SPECIMENOrdering Facility: [facility] Address: [address] [place] [address] Result Comment: [place] Diabetes Association guidelines indicate that patients with HgbA1c in the range 5.7-6.4% are at increased risk for development of diabetes, and intervention by lifestyle modification may be beneficial. HgbA1c greater or equal to 6.5% is considered diagnostic of diabetes. Performed By: #### 5 5454-3 ####[facility] LABCLIA [id number] [facility]ITALJoao [facility] HOSPITALAbiel [id number] [place] [address] [place] [id number] PLUSon 11-01-2024 Cell-free DNA./Cell-free DNA.total Dosage of chromosome-specific cfDNA (cfDNA) [Molar fraction] 14% Normal [facility] Comment on above: Order Comment: Speci men Type: BLOOD SPECIMEN Ordering Facility: [facility] Address: [address] [place] [address] Performed By: #### 2 4323-8 #### [facility] EMERALD COASTIA [id number] [address] [place] [address] [place] Chr 13+18+21+X+Y aneuploidy Dosage of chromosome-specific cfDNA Ql (cfDNA) Negative Normal [facility] Comment on above: Order Comment: Speci men Type: BLOOD SPECIMEN Ordering Facility: [facility] Address: [address] [place] [address] Performed By: #### 2 4323-8 #### [facility] EMERALD COASTIA [id number] [address] [place] [address] [place] Chr 21 trisomy Dosage of chromosome-specific cfDNA Ql (cfDNA) Negative Normal [facility] Comment on above: Order Comment: Speci men Type: BLOOD SPECIMEN Ordering Facility: [facility] Address: [address] [place] [address] Performed By: #### 2 4323-8 #### [facility] EMERALD COASTIA [id number] [address] [place] [address] [place] Chr X and Y aneuploidy risk Sequencing Ql (cfDNA) [Interp] Not detected Normal [facility] Comment on above: Order Comment: Speci men Type: BLOOD SPECIMEN Ordering Facility: [facility] Address: [address] [place] [address] Result Comment: Not Detected Not Detected Performed By: #### 2 4323-8 #### [facility] CLIA [id number] [address] [place] [address] [place] Citation Bhupinder (Reference lab test) Comment Normal [facility] Comment on above: Order Comment: Speci men Type: BLOOD SPECIMEN Ordering Facility: [facility] Address: [address] [place] [address] Result Comment: 1. P eva BOJORQUEZ, et al. Leonila Med. 2012;14(3):296-305. 2. Sharonda KLEIN, et al. Prenat Diag. 2013;33(6):591-597. 3. Gregorio C, et al. Clin Chem. 2015 Apr;61(4):608-616. 4. Brandi BOJORQUEZ, et al. Leonila Med. 2011;13(11):913-920. 5. ACOG/SM[facility] Practice Bulletin No. 226, Jun 2020. Performed By: #### 2 4323-8 #### [facility] CLIA [id number] [address] [place] [address] [place] Gestational age Estimated from conception date Block Normal [facility] Comment on above: Order Comment: Speci men Type: BLOOD SPECIMEN Ordering Facility: [facility] Address: [address] [place] [address] Performed By: #### 2 4323-8 #### [facility] CLIA [id number] [address] [place] [address] [place] GESTATIONALAGE AGE > OR = 9W Yes Normal [facility] Comment on above: Order Comment: Speci men Type: BLOOD SPECIMEN Ordering Facility: [facility] Address: [address] [place] [address] Performed By: #### 2 4323-8 #### [facility] CLIA [id number] [address] [place] [address] OF [place] Laboratory comment Bhupinder (Report) Comment Normal [facility] Comment on above: Order Comment: Cheryl raza Type: BLOOD SPECIMEN Ordering Facility: [facility] Address: [address] [place] [address] Result Comment: The MaterniT(R) 21 PLUS laboratory-developed test (LDT) analyzes circulating cell-free DNA from a maternal blood sample. This test is used for screening purposes and not diagnostic. Clinical correlation is recommended. Validation data on twin pregnancies is limited and the ability of this test to detect aneuploidy in higher multiple gestations has not yet been validated. Performed By: #### 2 4323-8 #### [facility] CLIA [id number] [address] [place] [address] OF [facility] director of conservation name Nom (Provider) Comment Normal [facility] Comment on above: Order Comment: Cheryl raza Type: BLOOD SPECIMEN Ordering Facility: [facility] Address: [address] [place] [address] Result Comment: This specimen showed an expected representation of chromosome 21, 18 and 13 material. Clinical correlation is suggested. Comment Gab Strauss MD, PhD, Director, [employer] Performed By: #### 2 4323-8 #### [facility] CLIA [id number] [address] [place] [address] LIMITATIONS OF THE TEST Comment Normal [facility] Comment on above: Order Comment: Cheryl raza Type: BLOOD SPECIMEN Ordering Facility: [facility] Address: [address] [place] [address] Result Comment: Lin jones the results of these tests are highly reliable, discordant results, including inaccurate sex prediction, may occur due to placental, maternal, or mosaicism or neoplasm; vanishing twin; prior maternal organ transplant; or other causes. These tests are screening tests and not diagnostic; they do not replace the accuracy and precision of diagnosis with CVS or amniocentesis. A patient with a positive test result should be referred for genetic counseling and offered invasive diagnosis for confirmation of test results.[5] The results of this testing, including the benefits and limitations, should be discussed with a qualified healthcare provider. management decisions, including termination of the , should not be based on the results of these tests alone. The healthcare provider is responsible for the use of this information in the management of their patient. Sex chromosomal aneuploidies are not reportable for known multiple gestations. A negative result does not ensure an unaffected nor does it exclude the possibility of other chromosomal abnormalities or defects which are not a part of these tests. An uninformative result may be reported, the causes of which may include, but are not limited to, insufficient sequencing coverage, noise or artifacts in the region, amplification or sequencing bias, or insufficient fraction. These tests are not intended to identify pregnancies at risk for neural tube defects or ventral wall defects. Testing for whole chromosome abnormalities (including sex chromosomes) and for subchromosomal abnormalities could lead to the potential discovery of both and maternal genomic abnormalities that could have major, minor, or no, clinical significance. Evaluating the significance of a positive or a non-reportable result may involve both invasive testing and additional studies on the mother. Such investigations may lead to a diagnosis of maternal chromosomal or subchromosomal abnormalities, which on occasion may be associated with benign or malignant maternal neoplasms. These tests may not accurately identify triploidy, balanced rearrangements, or the precise location of subchromosomal duplications or deletions; these may be detected by diagnosis with CVS or amniocentesis. The ability to report results may be impacted by maternal BMI, maternal weight, maternal systemic lupus erythematosus (SLE) and/or by certain pharmaceutical agents such as low molecular weight heparin (for example: Lovenox(R), Xaparin(R), Clexane(R) and Fragmin(R)). Performed By: #### 2 4323-8 #### [facility] EMERALD [place]ASTIA [id number] [address] [place] [address] [place] Monosomy X risk Dosage of chromosome-specific cfDNA Ql (Plasma cell-free+WBC DNA) [Interp] Not detected Normal [facility] Comment on above: Order Comment: Speci men Type: BLOOD SPECIMEN Ordering Facility: [facility] Address: [address] [facility] [address] Performed By: #### 2 4323-8 #### [facility] CLIA [id number] [address] [place] [address] OF [place] NEGATIVE PREDICTIVE VALUE Note Normal [facility] Comment on above: Order Comment: Cheryl raza Type: BLOOD SPECIMEN Ordering Facility: [facility] Address: [address] [place] [address] Result Comment: The Negative Predictive Value (NPV) for trisomy 21, 18, and 13 is greater than 99%. The NPV for SCA and ESS cannot be calculated as SCA and ESS are only reported when an abnormality is detected. Performed By: #### 2 4323-8 #### [facility] EMERALD [place]AST[place] [id number] [address] [employer] Note Normal [facility] Comment on above: Order Comment: Cheryl raza Type: BLOOD SPECIMEN Ordering Facility: [facility] Address: [address] [place] [address] Result Comment: ! Sex ! Accuracy: 99.4% ! ! ! ! Region (associated syndrome) ! Est. Sens# ! Est. Spec ! ! ! ! Trisomy 21 (Down Syndrome) ! 99.1% ! 99.9% ! ! ! ! Trisomy 18 (Poole Syndrome) ! >99.9% ! 99.6% ! ! ! ! Trisomy 13 (Patau Syndrome) ! 91.7% ! 99.7% ! ! ! ! Sex Chromosome Aneuploidies## ! 96.2% ! 99.7% ! ! ! * As reported in [facility] database nstd37 [https://www.ncbi.nlm.nih.gov/dbvar/studies/nstd37/ ] # Estimated Sensitivity. Sensitivity estimated across the observed size distribution of each syndrome [per [facility] database nstd37] and across the range of fractions observed in routine clinical NIPT. Actual sensitivity can also be influenced by other factors such as the size of the event, total sequence counts, amplification bias, or sequence bias. ## Block gestation only. Performed By: #### 2 4323-8 #### [facility] EMERALD [place] [id number] [address] [place] [address] [place] POSITIVE PREDICTIVE VALUE N/A Normal [facility] Comment on above: Order Comment: Cheryl raza Type: BLOOD SPECIMEN Ordering Facility: [facility] Address: [address] [place] [address] Performed By: #### 2 4323-8 #### [facility] EMERALD COASTIA [id number] [address] [place] [address] [place] Reference Lab Test Method Comment Normal [facility] Comment on above: Order Comment: Cheryl raza Type: BLOOD SPECIMEN Ordering Facility: [facility] Address: [address] [place] [address] Result Comment: See Notes Circulating cell-free DNA was purified from the plasma component of maternal blood. The extracted DNA was then converted into a genomic DNA library for aneuploidy analysis of chromosomes 21, 18, and 13 via next generation sequencing.[1] Optional findings based on the test order include sex chromosome aneuploidy (SCA)[2], and enhanced sequencing series (ESS)[3], which will only be reported on as an additional finding when an abnormality is detected. SCA testing includes information on X and Y representation, while ESS testing includes deletions in selected regions (22q, 15q, 11q, 8q, 5p, 4p, 1p) and trisomy of chromosomes 16 and 22. Performed By: #### 2 4323-8 #### [facility] CLIA [id number] [address] [place] [address] [place] Service comment (Unsp spec) [Interp] Comment Normal [facility] Comment on above: Order Comment: Speci men Type: BLOOD SPECIMEN Ordering Facility: [facility] Address: [address] [place] [address] Result Comment: See Notes [employer] is a subsidiary of [employer], using the brand [employer]. This test was developed and its performance characteristics determined by [employer]. It has not been cleared or approved by the Food and Drug Administration. This laboratory is certified under the Clinical Laboratory Improvement Amendments (CLIA) as qualified to perform high complexity clinical laboratory testing and accredited by the [employer] [place] [employer] (CAP). If there is future clinical need for adding MaterniT GENOME testing, this specimen will be available until term. [facility] samples will not be retained beyond 60 days. [facility] patients will have to send a new sample for re-sequencing ([facility] Test Code: [id number]). Performed By: #### 2 4323-8 #### [facility] CLIA [id number] [address] [place] [address] [place] Sex Dosage of chromosome-specific cfDNA Nom (cfDNA) Comment Normal [facility] Comment on above: Order Comment: Speci men Type: BLOOD SPECIMEN Ordering Facility: [facility] Address: [address] [place] [address] Result Comment: Cons istent with Male Performed By: #### 2 4323-8 #### [facility] CLIA [id number] [address] [place] [address] [place] Test performance information Bhupinder (Unsp spec) Comment Normal [facility] Comment on above: Order Comment: Speci men Type: BLOOD SPECIMEN Ordering Facility: [facility] Address: [address] [place] [address] Result Comment: The performance characteristics of the MaterniT(R) 21 PLUS laboratory-developed test (LDT) have been determined in a clinical validation study with women at increased risk for chromosomal aneuploidy.[1-4] Performed By: #### 2 4323-8 #### [facility] EMERALD COASTIA [id number] [address] [place] [address] [place] Trisomy 13 risk Dosage of chromosome-specific cfDNA Ql (cfDNA) [Interp] Negative Normal [facility] Comment on above: Order Comment: Speci men Type: BLOOD SPECIMEN Ordering Facility: [facility] Address: [address] [place] [address] Performed By: #### 2 4323-8 #### [facility] EMERALD COASTIA [id number] [address] [place] [address] [place] Trisomy 18 risk Dosage of chromosome-specific cfDNA Ql (Plasma cell-free+WBC DNA) [Interp] Negative Normal [facility] Comment on above: Order Comment: Speci men Type: BLOOD SPECIMEN Ordering Facility: [facility] Address: [address] [place], [place] [address] Performed By: #### 2 4323-8 #### [facility] CLIA [id number] [address] [place] [address] [place] Prot/Creat Uron 11-01-2024 Protein/Creatinine (U) [Mass ratio] 0.07 mg/mg Normal <0.15 [facility] Comment on above: Order Comment: Speci men Type: URINE SPECIMENOrdering Facility: [facility] Address: [address] [place] [address] Result Comment: Adul t Proteinuria Categories: <0.15 mg/mg is considered normal to mildly increased 0.15 - 0.50 mg/mg is considered moderately increased >0.50 mg/mg is considered severely increased KDIGO. (2013). KDIGO 2012 Clinical Practice Guideline for the Evaluation and Management of Chronic Kidney Disease. Official Journal of the International Society of Nephrology, 3(1), 1-150. Performed By: #### 2 890-2 ####[employer] [facility] VIDTE[employer] IndiaCLIA [id number] [place] [address] [place] Protein/Creatinine (U) [Mass ratio]on 11-01-2024 Creatinine (U) [Mass/Vol] 232.4 mg/dL Normal 42.2-237.9 [facility] Comment on above: Order Comment: Speci men Type: URINE SPECIMENOrdering Facility: [facility] Address: [address] [place] [address] Performed By: #### 2 890-2 ####[employer] [facility] [employer] IndiaCLIA [id number] [place] [address] [place] Protein (U) [Mass/Vol] 17 mg/dL Normal 0-20 [facility] Comment on above: Order Comment: Speci luz marina Type: URINE SPECIMENOrdering Facility: [facility] Address: [address] [place] [address] Performed By: #### 2 890-2 ####[employer] [facility] LABORATORYCLIA [id number] [place] [id number] [place] RUBELLA IGG ANTIBODYon 11-01 RUBELLA IGG AB, QUAL Positive Normal Positive [facility] Comment on above: Order Comment: Efrai men Type: BLOOD SPECIMENOrdering Facility: [facility] Address: [address] [place] [address] Result Comment: The result suggests recent or past exposure to Rubella virus or history of Rubella vaccination. Positive result may also be seen due to presence of passively-transferred antibodies. Please correlate with patient's history. The following results were obtained with the [employer] Rubella IgG assay. Results from assays of other manufacturers cannot be used interchangeably. Performed By: #### R UBIGG ####[facility] LABORATORYCLIA [id number] [place] [address] [place] Reagin and Treponema pallidu m IgG and IgM [Interp]on 11-01-2024 T. pallidum IgG+IgM IA Ql (S) Non-Reactive Normal Nonreactive [facility] Comment on above: Order Comment: Speci men Type: BLOOD SPECIMENOrdering Facility: [facility] Address: [address] [place] [address] Performed By: #### 5 195-3, 17720-7, 47604-4 ####[facility] LABCLIA [id number] [place] [address] [place] Reagin+T pallidum IgG+IgM Se rPl-Impon 11-01-2024 Reagin and Treponema pallidum IgG and IgM [Interp] Cannot exclude recent Treponemal infection if specimen collected within 7-10 days after appearance of suspect lesions or 2-3 weeks after an exposure. Clinical correlation is required. Normal [facility] Comment on above: Order Comment: Cheryl raza Type: BLOOD SPECIMENOrdering Facility: [facility] Address: [address] [place] [address] Performed By: #### 5 195-3, 09020-8, 34347-5 ####[facility] LABCLIA [id number] [place] [id number] [place] TSH SerPl-aCncon 11-01-2024 TSH Qn 2.000 m[IU]/L Normal 0.270-4.200 [facility] Comment on above: Order Comment: Cheryl raza Type: BLOOD SPECIMENOrdering Facility: [facility] Address: [address] [place] [address] Result Comment: If t he patient is , TSH reference range varies by gestational period: First Trimester (weeks 9-12): 0.180-2.990 mIU/L Second Trimester: 0.110-3.980 mIU/L Third Trimester: 0.480-4.710 mIU/L Cornelio Mcintosh et al. A Practical Approach for the Verifications and Determination of Site- and Trimester-Specific Reference Intervals for Thyroid Function tests in . Thyroid, 2019:29:3:412-420. Dorian Jones, et al. 2017 Guidelines of the [place] [employer] Association for the Diagnosis and Management of Thyroid Disease during and the . Thyroid, 2017:27:3:315-389. Performed By: #### 3 016-3 ####[facility] LABORATORYCLIA [id number] [place] [address] [facility] TYPE + SCREEN PRENATALon ABO A Normal [facility] Comment on above: Order Comment: Speci men Type: BLOOD SPECIMENOrdering Facility: [facility] Address: [address] [place] [address] Performed By: #### T SPN ####[facility] MA[facility] BLOOD BANKCLIA [id number] [place] [address] [place] Rh Nom (Bld) Positive Normal [facility] Comment on above: Order Comment: Cheryl raza Type: BLOOD SPECIMENOrdering Facility: [facility] Address: [address] [place] [address] Performed By: #### T SPN ####[facility] MAIN BLOOD BANKCLIA [id number] [address] OF [place] TYPE AND SCREEN EXPIRATION 11/04/2024 23:59 Normal [facility] Comment on above: Order Comment: Cheryl raza Type: BLOOD SPECIMENOrdering Facility: [facility] Address: [address] [place] [address] Performed By: #### T SPN ####[facility] MAIN BLOOD BANKCLIA [id number] [address] [place] CNPNon 09-26-2024 CNPN Telephone ([place]) -- MICHAEL PALMA ([id number]) 2 F UPA Date Time Provider Department 09/26/24 GOPI GODDARD During your visit today, we recorded the following information about you: Gopi Goddard RN 09/26/2024 2:11 PM Signed 1st risk assessment form submitted 09/26/24. 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 - promethazine (PHENERGAN) 25 mg tablet Take 1 tablet by mouth every 6 hours as needed. - famotidine (PEPCID) 20 mg tablet Take 1 tablet by mouth two times a day. - 25/iron/folate 6/dha (PRENA1 ORAL) Take 1 tablet by mouth once daily. - albuterol HFA (PROAIR HFA) 90 mcg/actuation inhaler Inhale 2 Puffs as instructed every 6 hours as needed. Problem List As Of Date 09/26/2024 Noted Resolved Headache, unspecified headache type [R51.9] 06/28/2018 Post concussion syndrome [F07.81] 06/28/2018 10/11/2019 Elevated liver enzymes [R74.8] 10/10/2019 09/25/2024 Jaundice [R17] 10/10/2019 11/10/2020 Asthma affecting in first trimester [* JESUS positive [R76.8] Mononucleosis [B27.90] 09/201909/25/2024 Hepatitis A antibody positive [R76.8] 10/25/2019 11/10/2020 Anxiety and depression [F41.9, F32.A] 11/10/2020 Obesity complicating , first trimester*04/05/2021 Kidney stone on right side [N20.0] 11/29/2021 Hx of preeclampsia, prior , currently * History of depression [Z87.59, Z86.5* Nausea and vomiting during [O21.9] 09/25/2024 Heartburn during in first trimester [*09/25/2024 Family history of Down syndrome [Z82.79] 09/25/2024 Family history of autism [Z81.8] 09/25/2024 with uncertain dates in first trimest*09/25/2024 Encounter for supervision of high risk pregnanc*09/25/2024 Encounter Status:Closed by GOPI GODDARD on 09/26/24 Normal [facility] Bacteria Ur Culton Bacteria identified Cx Nom (U) ORGANISM ID: 1 10,000 -<50,000 CFU/ml Normal urogenital ck Normal [facility] Comment on above: Performed By: #### 6 30-4 ####[facility] LABCLIA [id number] [place] [address] [place] C. trachomatis+N. gonorrhoea e DNA LOTTIE+probe Ql (Unsp spec)on 09-25-2024 C. trachomatis rRNA LOTTIE+probe Ql (Unsp spec) Not detected Normal Not detected [facility] Comment on above: Order Comment: Speci men Type: SWABOrdering Facility: [facility] Address: [address] [place] [address] Performed By: #### 3 6902-5 ####[facility] LABCLIA [id number] [place] [address] [place] N. gonorrhoeae rRNA LOTTIE+probe Ql (Unsp spec) Not detected Normal Not detected [facility] Comment on above: Order Comment: Speci men Type: SWABOrdering Facility: [facility] Address: [address] [place] [address] Performed By: #### 3 6902-5 ####[facility] LABCLIA [id number] [place] [address] [facility] COORDINATOR ULTRASOUNDon 09-25-19 25 Indication Viability; confirm cardiac activity Impression Single intrauterine gestational sac, CRL indicates discrepancy from clinical dates, AMADOR 05/13/2025 based on today's ultrasound, cardiac activity is visualized Recommendations Follow up for NT scan if desired Method Transabdominal ultrasound examination, Transvaginal ultrasound examination. View: Adequate visualization Block . Number of embryos: 1 Dating LMP on: 07/22/2024 [place] by LMP 9 w + 2 d AMADOR by LMP: 04/28/2025 Ultrasound examination on: 09/25/2024 GA by U/S based upon: CRL GA by U/S 7 w + 1 d AMADOR by U/S: 05/13/2025 Assigned: based on the LMP, selected on 09/25/2024 Assigned GA 9 w + 2 d Assigned AMADOR: 04/28/2025 Biometry Standard FHR 149 bpm CRL 10.5 mm 7w 1d <1% Hadlock Assessment Gestational sac: visualized Location: intrauterine Yolk sac: visualized Embryo: visualized CRL 10.5 mm 7w 1d <1% [place]lock Cardiac activity: present FHR 149 bpm General Evaluation Cardiac activity present. FHR 149 bpm Performed By: Madi Moss NP Read By: Madi Moss NP MATERNAL MEDICINE [facility] Radiology Study observation (narrative) [facility] CBC W/Diff, Automatedon Absolute Lymph 2.12 X10 3/uL Normal 0.83-4.51 [facility] Comment on above: Performed By: #### L 500.4050, L100.0100, L700.6800 #### [facility] [address] [place], [address] Absolute Neut 12.9 X10 3/uL High 2.0-7.7 [facility] Comment on above: Performed By: #### L 500.4050, L100.0100, L700.6800 #### [facility] [address] [place], [address] Basophils/100 WBC (Bld) 0.4 % Normal 0-1 [facility] Comment on above: Performed By: #### L 500.4050, L100.0100, L700.6800 #### [facility] [address] [place], [address] Eosinophils/100 WBC (Bld) 0.0 % Normal 0-5 [facility] Comment on above: Performed By: #### L 500.4050, L100.0100, L700.6800 #### [facility] [address] [place], [address] Erythrocyte distribution width (RBC) [Ratio] 13.6 % Normal 11.6-14.6 [facility] Comment on above: Performed By: #### L 500.4050, L100.0100, L700.6800 #### [facility] [address] [place], [address] Hematocrit (Bld) [Volume fraction] 45.0 % Normal 37-47 [facility] Comment on above: Performed By: #### L 500.4050, L100.0100, L700.6800 #### [facility] [address] [place], [address] Hemoglobin (Bld) [Mass/Vol] 14.9 g/dL Normal 12.0-15.0 [facility] Comment on above: Performed By: #### L 500.4050, L100.0100, L700.6800 #### [facility] [address] [place], [address] IG% 0.400 Normal 0.0-0.9 [facility] Comment on above: Result Comment: IG% - Immature Granulocytes (promyelocytes, myelocytes and metamyelocytes) > 1% indicates that a LEFT SHIFT is Present. Performed By: #### L 500.4050, L100.0100, L700.6800 #### [facility] [address] [place], [address] Lymphocytes/100 WBC (Bld) 13.5 % Low 19-41 [facility] Comment on above: Performed By: #### L 500.4050, L100.0100, L700.6800 #### [facility] [address] [place], [address] MCH (RBC) [Entitic mass] 27.4 pg Normal 27.0-32.0 [facility] Comment on above: Performed By: #### L 500.4050, L100.0100, L700.6800 #### [facility] [address] [place], [address] MCHC (RBC) [Mass/Vol] 33.1 g/dL Normal 32-36 [facility] Comment on above: Performed By: #### L 500.4050, L100.0100, L700.6800 #### [facility] [address] [place], [address] MCV (RBC) [Entitic vol] 82.7 fL Normal 81-99 [facility] Comment on above: Performed By: #### L 500.4050, L100.0100, L700.6800 #### [facility] [address] [place], [address] Monocytes/100 WBC (Bld) 3.7 % Normal 0-10 [facility] Comment on above: Performed By: #### L 500.4050, L100.0100, L700.6800 #### [facility] [address] [place], [address] Neutrophils/100 WBC (Bld) 82.0 % High 47-70 [facility] Comment on above: Performed By: #### L 500.4050, L100.0100, L700.6800 #### [facility] [address] [place], [address] Nucleated RBC (Bld) [#/Vol] 0 10*3/uL Normal 0-5 [facility] Comment on above: Performed By: #### L 500.4050, L100.0100, L700.6800 #### [facility] [address] [place], [address] Platelet mean volume (Bld) [Entitic vol] 9.4 fL Normal 6.2-12.0 [facility] Comment on above: Performed By: #### L 500.4050, L100.0100, L700.6800 #### [facility] [address] [place], [address] Platelets (Bld) [#/Vol] 419 10*3/uL Normal 150-450 [facility] Comment on above: Performed By: #### L 500.4050, L100.0100, L700.6800 #### [facility] [address] [place], [address] RBC (Bld) [#/Vol] 5.44 10*6/uL High 4.2-5.4 [facility] Comment on above: Performed By: #### L 500.4050, L100.0100, L700.6800 #### [facility] [address] [place], [address] RDW SD 40.3 fl Normal 35.1-43.9 [facility] Comment on above: Performed By: #### L 500.4050, L100.0100, L700.6800 #### [facility] [address] [place], [address] WBC (Bld) [#/Vol] 15.7 10*3/uL High 4.4-11.0 [facility] Comment on above: Performed By: #### L 500.4050, L100.0100, L700.6800 #### [facility] [address] [place], [address] CNPNon 01-07-2025 XU Telephone (OBGYWM) -- LOUIEMICHAEL Hernández ([id number]) 2 F UPA Date Time Provider Department 09/24/24 IVETH WALKER OBGYWM During your visit today, we recorded the following information about you: Rachael Elena RN 09/24/2024 10:56 AM Signed 9w1d Patient is calling c/o n/v again. She last went to ER on 09/14/24 for this and was given rx for Zofran, which did help her. She has now ran out of Zofran though. She was taking vitamin B6 and ran out of that too. She plans to get more OTC soon. Her NOB is scheduled for tomorrow. Asking if she can get refill for Zofran today. She has been unable to keep anything down since around 2 am and has vomited multiple times since. Aware to return to ER if continues for 24 hours. Iveth Walker MD 09/24/2024 12:16 PM Signed I would recommend vitamin B6 and 1/2 tab of unisom OTC. I know we are seeing her tomorrow but I am not going to write for a medication until she is established for with us. Small frequent sips of fluids - len kristopher. Sarah Devi RN 09/24/2024 1:20 PM Signed Left message for patient to call office. ALEXANDRO Palomares Annalee, LPN 09/24/2024 1:28 PM Signed Patient called back tearful. Stated that she has been taking Vitamin B6 with no relief. Cannot keep any fluids/food down. Feels dizzy. Reports that she had to take Zofran previous and is now out of the zofran she received during previous emergency room visit. Patient told nurse that she would have her take her to the emergency room. Allergies As of Date: 09/24/2024 (No Known Allergies) Date Reviewed: 09/24/2024 Reviewed by: Galina Hidalgo MA - Fully Assessed Reason for Visit: OB - N/V [Other] Prescriptions as of 09/24/2024 - 25/iron/folate 6/dha (PRENA1 ORAL) Take 1 tablet by mouth once daily. - albuterol HFA (PROAIR HFA) 90 mcg/actuation inhaler Inhale 2 Puffs as instructed every 6 hours as needed. Problem List As Of Date 09/24/2024 Noted Resolved Headache, unspecified headache type [R51.9] 06/28/2018 Post concussion syndrome [F07.81] 06/28/2018 10/11/2019 Neck pain [M54.2] 06/28/2018 Depression, major, single episode, mild (HCC) [*06/28/2018 Insomnia due to stress [F51.02] 06/28/2018 Infectious mononucleosis [B27.90] 10/10/2019 Elevated liver enzymes [R74.8] 10/10/2019 Jaundice [R17] 10/10/2019 11/10/2020 Right hip pain [M25.551] 10/11/2019 Asthma [J45.909] JESUS positive [R76.8] Mononucleosis [B27.90] 09/2019 Hepatitis A antibody positive [R76.8] 10/25/2019 11/10/2020 Pain in joint, multiple sites [M25.50] 01/30/2020 Malaise and fatigue [R53.81, R53.83] 01/30/2020 Anxiety and depression [F41.9, F32.A] 11/10/2020 Obesity, Class II, BMI 35-39.9 [E66.812] 04/05/2021 Kidney stone on right side [N20.0] 11/29/2021 COVID-19 affecting , antepartum [O98.5*11/01/2021 Maternal obesity, antepartum [O99.210] 11/15/2021 care, antepartum [Z34.90] 11/15/2021 16 weeks gestation of [Z3A.16] 11/29/2021 Encounter Status:Closed by MARILEE DE LA TORRE on 09/24/24 Normal [facility] Metabolic Prof joey 09-24-2024 Albumin [Mass/Vol] 4.1 g/dL Normal 3.2-5.0 [facility] Comment on above: Performed By: #### L 500.4050, L100.0100, L700.6800 #### [facility] [address] [place], [address] Albumin/Globulin [Mass ratio] 1.0 {ratio} Normal 0.9-2.4 [facility] Comment on above: Performed By: #### L 500.4050, L100.0100, L700.6800 #### [facility] [address] [place], [address] ALK P 86 U/L Normal 45-117 [facility] Comment on above: Performed By: #### L 500.4050, L100.0100, L700.6800 #### [facility] [address] [place], [address] ALT [Catalytic activity/Vol] 41 U/L Normal 13-56 [facility] Comment on above: Performed By: #### L 500.4050, L100.0100, L700.6800 #### [facility] [address] [place], [address] AST [Catalytic activity/Vol] 20 U/L Normal 15-37 [facility] Comment on above: Performed By: #### L 500.4050, L100.0100, L700.6800 #### [facility] [address] [place], [address] Bilirubin [Mass/Vol] 0.60 mg/dL Normal 0.20-1.00 [facility] Comment on above: Result Comment: For patients on eltrombopag therapy, use of Dimension Peculiar TBIL is not recommended. Performed By: #### L 500.4050, L100.0100, L700.6800 #### [facility] [address] [place], [address] BUN/CRE 9.3 RATIO Low 10-20 [facility] Comment on above: Performed By: #### L 500.4050, L100.0100, L700.6800 #### [facility] [address] [place], [address] CA,Total 9.7 mg/dL Normal 8.5-10.1 [facility] Comment on above: Performed By: #### L 500.4050, L100.0100, L700.6800 #### [facility] [address] [place], [address] Chloride [Moles/Vol] 105 mmol/L Normal 98-107 [facility] Comment on above: Performed By: #### L 500.4050, L100.0100, L700.6800 #### [facility] [address] [place], [address] CO2 [Moles/Vol] 23.0 mmol/L Normal 21.0-32.0 [facility] Comment on above: Performed By: #### L 500.4050, L100.0100, L700.6800 #### [facility] [address] [place], [address] Creatinine [Mass/Vol] 0.86 mg/dL Normal 0.55-1.02 [facility] Comment on above: Result Comment: The validity of the calculated GFR GFRAA in patients over 70 years has not been determined. Clinical correlation is essential. Performed By: #### L 500.4050, L100.0100, L700.6800 #### [facility] [address] [place], [address] ECRCL 133.12 ml/min Normal [facility] Comment on above: Performed By: #### L 500.4050, L100.0100, L700.6800 #### [facility] [address] [place], [address] EST GFR - AA 105 mL/min Normal >60 [facility] Comment on above: Result Comment: Afri can Tajik GFR Calc Performed By: #### L 500.4050, L100.0100, L700.6800 #### [facility] [address] [place], [address] GAP 8 Normal 5-15 [facility] Comment on above: Performed By: #### L 500.4050, L100.0100, L700.6800 #### [facility] [address] [place], [address] GFR/1.73 sq M.predicted among non-blacks MDRD (S/P/Bld) [Vol rate/Area] 86 mL/min/{1.73_m2} Normal >60 [facility] Comment on above: Result Comment: Non- GFR Calc Performed By: #### L 500.4050, L100.0100, L700.6800 #### [facility] [address] [place], [address] Globulin (S) [Mass/Vol] 4.2 g/dL Normal 2.2-4.2 [facility] Comment on above: Performed By: #### L 500.4050, L100.0100, L700.6800 #### [facility] [address] [place], [address] Glucose [Mass/Vol] 108 mg/dL High 74-106 [facility] Comment on above: Result Comment: Fast ing Glucose result from 100 to 125 mg/dL suggests IMPAIRED HOMEOSTASIS per A.D.A. criteria. Performed By: #### L 500.4050, L100.0100, L700.6800 #### [facility] [address] [place], [address] Potassium [Moles/Vol] 3.8 mmol/L Normal 3.5-5.1 [facility] Comment on above: Performed By: #### L 500.4050, L100.0100, L700.6800 #### [facility] [address] [place], [address] Sodium [Moles/Vol] 136 mmol/L Normal 136-145 [facility] Comment on above: Performed By: #### L 500.4050, L100.0100, L700.6800 #### [facility] [address] [place], [address] T PROT 8.3 g/dL High 6.4-8.2 [facility] Comment on above: Performed By: #### L 500.4050, L100.0100, L700.6800 #### [facility] [address] [place], [address] Urea nitrogen [Mass/Vol] 8 mg/dL Normal 7-18 [facility] Comment on above: Performed By: #### L 500.4050, L100.0100, L700.6800 #### [facility] [address] [place], [address] Emergency Department Summary on 09-24-2024 Emergency Department Summary [facility] Medical Records Department [address] [place] [address] Emergency Department Summary 09/24/24 MR#: [id number] Acct: [id number] Name: MICHAEL PALMA Rep #: [id number] : 2000 24 From: Pato Carrillo DO PCP: MOLINA Orozco Status:DEP ER Location: ED HPI HPI - GI History of Present Illness Chief Complaint: Nausea/Vomiting Informant: patient Nausea/Vomiting/Emesis GI Symptom: Positive for Nausea and Vomiting Onset: Today Quality: Positive for Nonbilious; Negative for Blood streaks, Coffee ground or Hematemesis Diarrhea/Melena/Hematochez ia GI Symptom: Positive for Diarrhea; Negative for Melena or Hematochezia Associated Symptoms Associated Symptoms: Negative for Dysuria, Frequency or Hematuria Narrative Narrative: Patient presents with nausea and vomiting that began again today. Patient states she had similar symptoms last week and was seen here. Patient states she was given a prescription for Zofran. Patient states she ran out of her Zofran and has not been able to follow-up with her [facility]. Patient states she has an appointment tomorrow with them. Patient states she is between 7 and 9 weeks . Patient states her last menstrual period was 07/22/2024. Patient admits to some mild loose stools. Patient denies any melena or hematochezia. Patient denies any hematemesis or coffee-ground emesis. Patient denies any abdominal pain. Patient denies any abnormal vaginal bleeding or discharge. PFSH PFS Medical History Anxiety Depression Asthma H/O gonorrhea Home Medications ???Medication ???Instructions ???Recorded ???Last Taken ???Type vmprwrni-dml-Zi-FA 1 mg 1 tab PO DAILY 05/25/22 05/25/22 08:00 History tablet promethazine 25 mg rectal 25 mg NM Q6H PRN nausea and 09/14/24 Unknown Rx suppository vomiting #12 ea cephalexin 500 mg capsule 500 mg PO Q6 #12 CAPSULES 09/24/24 Unknown Rx ondansetron 4 mg disintegrating 4 mg PO Q8H PRN PRN Nausea #14 tabs 09/24/24 Unknown Rx tablet Allergy/AdvReac Type Severity Reaction Status Date / Time No Known Allergies Allergy Verified 09/24/24 14:45 Family History Father Diabetes Unknown Heart disease Mother GERD (gastroesophageal reflux disease) Grandfather Heart disease Social History household members: significant other current occupational status: employed current occupation: [employer] history of recent travel: No sexually active: Yes Smoking Status: Former smoker Electronic Cigarette Use: with nicotine alcohol intake: current alcohol intake frequency: a few times a month substance use type: marijuana what type of physical activity do you participate in: none seatbelt use: always do you feel safe at home: Yes additional social history: single ROS ROS ED Constitutional Constitutional ED: Reports chills and subjective; Denies fever(s) Eyes Eyes: Reports blurry vision ENT ENT ED: Denies rhinorrhea or sore throat Cardiovascular Cardiovascular: Denies chest pain or palpitations Respiratory/Chest Respiratory/Chest: Denies cough or dyspnea Gastrointestinal Gastrointestinal: Reports nausea and vomiting Genitourinary Genitourinary ED: Denies dysuria or hematuria Musculoskeletal Musculoskeletal: Reports back pain; Denies neck pain Integumentary Denies abscess or rash Neurologic Neurologic: Denies headache(s) or weakness Allergic/Immunologic Allergic/Immunologic ED: Denies mouth swelling or urticaria EXAM Physical Exam Const Vital Signs: 09/24/24 14:45 09/24/24 17:00 Temperature 97.2 F L Temperature Source Temporal Pulse Rate 99 101 H Respiratory Rate 18 18 Blood Pressure 122/72 H Blood Pressure Mean 88 Pulse Ox 100 98 Oxygen Delivery Method Room Air Room Air Positive well nourished and well developed General Appearance ED: well developed and NAD HEENT Reports moist mucous membranes Neck supple and no JVD Resp normal respiratory effort and clear to auscultation bilaterally Cardio regular rate and regular rhythm GI non-tender and non-distended Palpation: soft Extremity General Extremety ED: Negative for edema or tenderness General Extremity: Negative for edema Neuro CN's II-XII intact bilaterally, moves all extremities and no sensory deficits noted Sensorium / Orientation: alert Motor Exam: strength 5/5 throughout Psych mental status grossly normal MDM MDM MDM Narrative Medical decision making narrative: Differential diagnosis includes hyperemesis gravidarum, viral illness, dehydration, electrolyte abnormality, and urinary tract infection. CBC will be obtained to assess for leukocytos (more content not included)... Normal [facility] ,Serum,hCG Quali.on 09-24-2024 HCG, SERUM QUAL Positive Normal [facility] Comment on above: Order Comment: CRITICAL VALUE CALLED TO APPLE GALDMAEZ 09/24/24 1606 Savi Dae. RESULTS READ BACK BY SAME. Performed By: #### L 500.5230, L100.0100, L700.6800 #### [facility] [address] [place], [address] Urinalysis, Completeon 09-24 BACTERIA 1+ /hpf Normal None Seen [facility] Comment on above: Order Comment: CRITI HANNAH VALUE CALLED TO NABILA GUZMAN09/24/24 1812 Savi Lollo.RESULTS READ BACK BY SAME.CAN STRIPER TO SPECIFY Performed By: #### L 500.4050, L100.0100, L700.6800 #### [facility] [address] [place], [address] EPI,SQUAMOUS 0-5 SEEN Normal 5-10 [facility] Comment on above: Order Comment: CRITI HANNAH VALUE CALLED TO [facility]09/24/24 1812 Savi Lollo.RESULTS READ BACK BY SAME.CAN STRIPER TO SPECIFY Performed By: #### L 500.4050, L100.0100, L700.6800 #### [facility] [place], [address] Mucus Ql (Urine sed) 2+ /hpf Normal [facility] Comment on above: Order Comment: [facility]H [facility]12 Savi Lollo.RESULTS READ BACK BY SAME.CAN STRIPER TO SPECIFY Performed By: #### L 500.4050, L100.0100, L700.6800 #### [facility] [address] [place], [address] RBC 0-5 SEEN Normal 0-5 [facility] Comment on above: Order Comment: CRITI HANNAH VALUE CALLED TO [facility]09/24/24 1812 Savi Lollo.RESULTS READ BACK BY SAME.CAN STRIPER TO SPECIFY Performed By: #### L 500.4050, L100.0100, L700.6800 #### [facility] [address] [place], [address] WBC 5-10 SEEN Normal 0-5 [facility] Comment on above: Order Comment: CRITI HANNAH VALUE CALLED TO NABILA GUZMAN09/24/24 1812 Savi Anastasialanden.RESULTS READ BACK BY SAME.CAN STRIPER TO SPECIFY Performed By: #### L 500.4050, L100.0100, L700.6800 #### [facility] [address] [place], [address] hCG Titer Quant., Serumon HCG QUANT. 15123 mIU/mL High 1-3 [facility] Comment on above: Result Comment: hCG levels with Gestational Age Gestational Age hCG mIU/mL (IU/L) 0.2 - 1 week 5 - 50 1-2 weeks 50 - 500 2-3 weeks 100 - 5000 3-4 weeks 500 - 66358 4-5 weeks 1000 - 00020 5-6 weeks 58016 - 100,000 6-8 weeks 91994 - 200,000 2-3 months 89338 - 100,000 Performed By: #### L 500.4050, L100.0100, L700.6800 #### [facility] [address] [place], [address] Urine Cultureon 09-16-2024 URC Below infection leve l. Mixed Gram Positive Organisms [place] Count 1000-10,000 MIXC Mixed contaminants. Submit a new specimen if indicated. Normal [facility] Comment on above: Performed By: #### M 100.2200 #### [facility] [address] [place], [address] CBC W/Diff, Automatedon 08-19 Absolute Lymph 2.54 X10 3/uL Normal 0.83-4.51 [facility] Comment on above: Performed By: #### L 100.0100, L501.5200, L500.4050, L501.2450 #### [facility] [address] [place], [address] Absolute Neut 8.5 X10 3/uL High 2.0-7.7 [facility] Comment on above: Performed By: #### L 100.0100, L501.5200, L500.4050, L501.2450 #### [facility] [address] [place], [address] Basophils/100 WBC (Bld) 0.4 % Normal 0-1 [facility] Comment on above: Performed By: #### L 100.0100, L501.5200, L500.4050, L501.2450 #### [facility] [address] [place], [address] Eosinophils/100 WBC (Bld) 0.2 % Normal 0-5 [facility] Comment on above: Performed By: #### L 100.0100, L501.5200, L500.4050, L501.2450 #### [facility] [address] [place], [address] Erythrocyte distribution width (RBC) [Ratio] 13.7 % Normal 11.6-14.6 [facility] Comment on above: Performed By: #### L 100.0100, L501.5200, L500.4050, L501.2450 #### [facility] [address] [place], [address] Hematocrit (Bld) [Volume fraction] 45.4 % Normal 37-47 [facility] Comment on above: Performed By: #### L 100.0100, L501.5200, L500.4050, L501.2450 #### [facility] [address] [place], [address] Hemoglobin (Bld) [Mass/Vol] 14.7 g/dL Normal 12.0-15.0 [facility] Comment on above: Performed By: #### L 100.0100, L501.5200, L500.4050, L501.2450 #### [facility] [address] [place], [address] IG% 0.400 Normal 0.0-0.9 [facility] Comment on above: Result Comment: IG% - Immature Granulocytes (promyelocytes, myelocytes and metamyelocytes) > 1% indicates that a LEFT SHIFT is Present. Performed By: #### L 100.0100, L501.5200, L500.4050, L501.2450 #### [facility] [address] [place], [address] Lymphocytes/100 WBC (Bld) 21.7 % Normal 19-41 [facility] Comment on above: Performed By: #### L 100.0100, L501.5200, L500.4050, L501.2450 #### [facility] [address] [place], [address] MCH (RBC) [Entitic mass] 27.3 pg Normal 27.0-32.0 [facility] Comment on above: Performed By: #### L 100.0100, L501.5200, L500.4050, L501.2450 #### [facility] [address] [place], [address] MCHC (RBC) [Mass/Vol] 32.4 g/dL Normal 32-36 [facility] Comment on above: Performed By: #### L 100.0100, L501.5200, L500.4050, L501.2450 #### [facility] [address] [place], [address] MCV (RBC) [Entitic vol] 84.2 fL Normal 81-99 [facility] Comment on above: Performed By: #### L 100.0100, L501.5200, L500.4050, L501.2450 #### [facility] [address] [place], [address] Monocytes/100 WBC (Bld) 4.6 % Normal 0-10 [facility] Comment on above: Performed By: #### L 100.0100, L501.5200, L500.4050, L501.2450 #### [facility] [address] [place], [address] Neutrophils/100 WBC (Bld) 72.7 % High 47-70 [facility] Comment on above: Performed By: #### L 100.0100, L501.5200, L500.4050, L501.2450 #### [facility] [address] [place], [address] Nucleated RBC (Bld) [#/Vol] 0 10*3/uL Normal 0-5 [facility] Comment on above: Performed By: #### L 100.0100, L501.5200, L500.4050, L501.2450 #### [facility] [address] [place], [address] Platelet mean volume (Bld) [Entitic vol] 9.4 fL Normal 6.2-12.0 [facility] Comment on above: Performed By: #### L 100.0100, L501.5200, L500.4050, L501.2450 #### [facility] [address] [place], [address] Platelets (Bld) [#/Vol] 384 10*3/uL Normal 150-450 [facility] Comment on above: Performed By: #### L 100.0100, L501.5200, L500.4050, L501.2450 #### [facility] [address] [place], [address] RBC (Bld) [#/Vol] 5.39 10*6/uL Normal 4.2-5.4 [facility] Comment on above: Performed By: #### L 100.0100, L501.5200, L500.4050, L501.2450 #### [facility] [address] [place], [address] RDW SD 42.1 fl Normal 35.1-43.9 [facility] Comment on above: Performed By: #### L 100.0100, L501.5200, L500.4050, L501.2450 #### [facility] [address] [place], [address] WBC (Bld) [#/Vol] 11.7 10*3/uL High 4.4-11.0 [facility] Comment on above: Performed By: #### L 100.0100, L501.5200, L500.4050, L501.2450 #### [facility] [address] [place], [address] Comprehensive Metabolic Prof [facility] 09-14-2024 Albumin [Mass/Vol] 4.0 g/dL Normal 3.2-5.0 [facility] Comment on above: Performed By: #### L 100.0100, L501.5200, L500.4050, L501.2450 #### [facility] [address] [place], [address] Albumin/Globulin [Mass ratio] 1.0 {ratio} Normal 0.9-2.4 [facility] Comment on above: Performed By: #### L 100.0100, L501.5200, L500.4050, L501.2450 #### [facility] [address] [place], [address] ALK P 84 U/L Normal 45-117 [facility] Comment on above: Performed By: #### L 100.0100, L501.5200, L500.4050, L501.2450 #### [facility] [address] [place], [address] ALT [Catalytic activity/Vol] 44 U/L Normal 13-56 [facility] Comment on above: Performed By: #### L 100.0100, L501.5200, L500.4050, L501.2450 #### [facility] [address] [place], [address] AST [Catalytic activity/Vol] 26 U/L Normal 15-37 [facility] Comment on above: Performed By: #### L 100.0100, L501.5200, L500.4050, L501.2450 #### [facility] [address] [place], [address] Bilirubin [Mass/Vol] 0.60 mg/dL Normal 0.20-1.00 [facility] Comment on above: Result Comment: For patients on eltrombopag therapy, use of Dimension Peculiar TBIL is not recommended. Performed By: #### L 100.0100, L501.5200, L500.4050, L501.2450 #### [facility] [address] [place], [address] BUN/CRE 11.0 RATIO Normal 10-20 [facility] Comment on above: Performed By: #### L 100.0100, L501.5200, L500.4050, L501.2450 #### [facility] [address] [place], [address] CA,Total 9.5 mg/dL Normal 8.5-10.1 [facility] Comment on above: Performed By: #### L 100.0100, L501.5200, L500.4050, L501.2450 #### [facility] [address] [place], [address] Chloride [Moles/Vol] 108 mmol/L High 98-107 [facility] Comment on above: Performed By: #### L 100.0100, L501.5200, L500.4050, L501.2450 #### [facility] [address] [place], [address] CO2 [Moles/Vol] 23.0 mmol/L Normal 21.0-32.0 [facility] Comment on above: Performed By: #### L 100.0100, L501.5200, L500.4050, L501.2450 #### [facility] [address] [place], [address] Creatinine [Mass/Vol] 0.72 mg/dL Normal 0.55-1.02 [facility] Comment on above: Result Comment: The validity of the calculated GFR GFRAA in patients over 70 years has not been determined. Clinical correlation is essential. Performed By: #### L 100.0100, L501.5200, L500.4050, L501.2450 #### [facility] [address] [place], [address] ECRCL 127.00 ml/min Normal [facility] Comment on above: Performed By: #### L 100.0100, L501.5200, L500.4050, L501.2450 #### [facility] [address] [place], [address] EST GFR - AA 128 mL/min Normal >60 [facility] Comment on above: Result Comment: Afri can Tajik GFR Calc Performed By: #### L 100.0100, L501.5200, L500.4050, L501.2450 #### [facility] [address] [place], [address] GAP 8 Normal 5-15 [facility] Comment on above: Performed By: #### L 100.0100, L501.5200, L500.4050, L501.2450 #### [facility] [address] [place], [address] GFR/1.73 sq M.predicted among non-blacks MDRD (S/P/Bld) [Vol rate/Area] 106 mL/min/{1.73_m2} Normal >60 [facility] Comment on above: Result Comment: Non- GFR Calc Performed By: #### L 100.0100, L501.5200, L500.4050, L501.2450 #### [facility] [address] [place], [address] Globulin (S) [Mass/Vol] 4.1 g/dL Normal 2.2-4.2 [facility] Comment on above: Performed By: #### L 100.0100, L501.5200, L500.4050, L501.2450 #### [facility] [address] [place], [address] Glucose [Mass/Vol] 100 mg/dL Normal 74-106 [facility] Comment on above: Result Comment: Fast ing Glucose result from 100 to 125 mg/dL suggests IMPAIRED HOMEOSTASIS per A.D.A. criteria. Performed By: #### L 100.0100, L501.5200, L500.4050, L501.2450 #### [facility] [address] [place], [address] Potassium [Moles/Vol] 3.7 mmol/L Normal 3.5-5.1 [facility] Comment on above: Performed By: #### L 100.0100, L501.5200, L500.4050, L501.2450 #### [facility] [address] [place], [address] Sodium [Moles/Vol] 139 mmol/L Normal 136-145 [facility] Comment on above: Performed By: #### L 100.0100, L501.5200, L500.4050, L501.2450 #### [facility] [address] [place], [address] T PROT 8.1 g/dL Normal 6.4-8.2 [facility] Comment on above: Performed By: #### L 100.0100, L501.5200, L500.4050, L501.2450 #### [facility] [address] [place], [address] Urea nitrogen [Mass/Vol] 8 mg/dL Normal 7-18 [facility] Comment on above: Performed By: #### L 100.0100, L501.5200, L500.4050, L501.2450 #### [facility] [address] [place], [address] Emergency Department Summary on 09-14-2024 Emergency Department Summary [facility] Medical Records Department [address] [place] [address] Emergency Department Summary 09/14/24 MR#: [id number] Acct: [id number] Name: MICHAEL PALMA Rep #: [id number] : 2000 24 From: Juana Correa DO PCP: MOLINA Orozco Status:REG ER Location: ED HPI History of Present Illness Chief Complaint: Nausea/Vomiting Informant: patient Narrative Narrative: Patient is a G2, P1 female presenting with worsening nausea and vomiting. She is proximately 8 weeks last menstrual period reported July 22. She is at positive home test. She is not been seen for this yet but is patient of [facility] and has an appointment scheduled. She notes that her last was complicated by preeclampsia but she had vaginal delivery. She is presenting today with worsening nausea and vomiting which started 2 days ago. Is usually not been able to keep anything down. She denies any blood in her vomit. She states her stools been loose but not consistent with a gastroenteritis more like for this distress stools). She states that she is feeling generally weak and lightheaded. She spoke to the nurse on- call yesterday who recommend she came to the ER but she tried states she could keep some substance down so she did not come in until her symptoms worsened again today. She denies any vaginal bleeding. She does report some mild abdominal cramping but attributes it to all of the vomiting. States she generally feels weak and does have some myalgias. No sick contacts reported. No fevers or chills. No other complaints or concerns at this time. [facility] Medical History Anxiety Depression Asthma H/O gonorrhea Home Medications ???Medication ???Instructions ???Recorded ???Last Taken ???Type ruifrokn-qcb-Xu-FA 1 mg 1 tab PO DAILY 05/25/22 05/25/22 08:00 History tablet ondansetron 4 mg disintegrating 4 mg PO Q8H PRN PRN Nausea #14 tabs 09/14/24 Unknown Rx tablet promethazine 25 mg rectal 25 mg NM Q6H PRN nausea and 09/14/24 Unknown Rx suppository vomiting #12 ea Allergy/AdvReac Type Severity Reaction Status Date / Time No Known Allergies Allergy Verified 09/14/24 11:20 Family History Father Diabetes Unknown Heart disease Mother GERD (gastroesophageal reflux disease) Grandfather Heart disease Social History household members: significant other current occupational status: employed current occupation: [employer] history of recent travel: No sexually active: Yes Smoking Status: Former smoker Electronic Cigarette Use: with nicotine alcohol intake: current alcohol intake frequency: a few times a month substance use type: marijuana what type of physical activity do you participate in: none seatbelt use: always do you feel safe at home: Yes additional social history: single ROS ROS ED Constitutional Constitutional ED: Denies chills or fever(s) Cardiovascular Cardiovascular: Denies chest pain or palpitations Respiratory/Chest Respiratory/Chest: Denies cough Gastrointestinal Gastrointestinal: Reports abdominal pain, diarrhea, nausea and vomiting Genitourinary Genitourinary ED: Reports LMP (females 10-50) Details: Comment: (07/22/24); Denies dysuria, hematuria or urinary frequency Musculoskeletal Musculoskeletal: Reports myalgias; Denies arthralgias Integumentary Denies rash Neurologic Neurologic: Reports weakness; Denies headache(s) or paresthesias EXAM Physical Exam Const Vital Signs: 09/14/24 11:20 09/14/24 13:16 Temperature 98.7 F Temperature Source Oral Pulse Rate 83 54 L Respiratory Rate 16 18 Blood Pressure 143/107 H Blood Pressure Mean 119 Pulse Ox 100 99 Oxygen Delivery Method Room Air Room Air Positive well nourished and well developed General Appearance ED: well developed and NAD HEENT Reports dry mucous membranes Mouth ED: Yes dry mucous membranes Mouth: dry mucous membranes Eyes PERRL Neck supple Chest Wall inspection of chest normal and palpation of chest normal Resp normal respiratory effort and clear to auscultation bilaterally Cardio regular rate, regular rhythm and no murmurs GI normal to inspection, nondistended, normoactive bowel sounds and non-tender Auscultation: normoactive bowel sounds Back/Spine no CVA tenderness Extremity normal to inspection Neuro oriented x3 Sensorium / Orientation: alert Motor Exam: Negative for general weakness Psych mental status grossly normal Skin no rashes or lesions noted and no wounds MDM MDM MDM Narrative Medical decision making narrative: Patient 24-year-old female pres (more content not included)... Normal [facility] Lipaseon 09-14-2024 Lipase [Catalytic activity/Vol] 16 U/L Normal 13-75 [facility] Comment on above: Result Comment: Tg eric note: LIPASE revised reference range effective 22. New Lipase methodology. Expected to produce lower values than the previous assay method. NEW Reference Range: 13 - 75 U/L Performed By: #### L 100.0100, L501.5200, L500.4050, L501.2450 #### [facility] [address] [place], [address] M100.678on 09-14-2024 M100.678 Pending SARS-CoV-2 (COVID 19) Negative INFLUENZA A Negative INFLUENZA B Negative RSV PCR Negative Normal [facility] Comment on above: Performed By: #### M 100.678 #### [facility] [address] [place], [address] Magnesiumon 09-14-2024 Magnesium [Mass/Vol] 2.1 mg/dL Normal 1.6-2.6 [facility] Comment on above: Performed By: #### L 500.4050, L100.0100, L700.6800 #### [facility] [address] [place], [address] Urinalysis, Completeon 09-14 BACTERIA 3+ /hpf Normal None Seen [facility] Comment on above: Order Comment: CLEAN CATCH Performed By: #### L 500.4050, L100.0100, L700.6800 #### [facility] [address] [place], [address] EPI,SQUAMOUS 0-5 SEEN Normal 5-10 [facility] Comment on above: Order Comment: CLEAN CATCH Performed By: #### L 500.4050, L100.0100, L700.6800 #### [facility] [address] [place], [address] Mucus Ql (Urine sed) 2+ /hpf Normal [facility] Comment on above: Order Comment: CLEAN CATCH Performed By: #### L 500.4050, L100.0100, L700.6800 #### [facility] [address] [place], [address] WBC 0-5 SEEN Normal 0-5 [facility] Comment on above: Order Comment: CLEAN CATCH Performed By: #### L 500.4050, L100.0100, L700.6800 #### [facility] [address] [place], [address] RBC 0 SEEN Normal 0-5 [facility] Comment on above: Order Comment: CLEAN CATCH Performed By: #### L 500.4050, L100.0100, L700.6800 #### [facility] [address] [place], [address] hCG Titer Quant., Serumon HCG QUANT. 58794 mIU/mL High 1-3 [facility] Comment on above: Result Comment: hCG levels with Gestational Age Gestational Age hCG mIU/mL (IU/L) 0.2 - 1 week 5 - 50 1-2 weeks 50 - 500 2-3 weeks 100 - 5000 3-4 weeks 500 - 74658 4-5 weeks 1000 - 77874 5-6 weeks 46752 - 100,000 6-8 weeks 57080 - 200,000 2-3 months 74253 - 100,000 Performed By: #### L 500.4050, L100.0100, L700.6800 #### [facility] [place], [address] [facility] CNPN Telephone (OBGYWM) -- MICHAEL PALMA ([id number]) 2 F UPA Date Time Provider Department 09/13/24 SARAH YOUNGBLOOD During your visit today, we recorded the following information about you: Rachael Elena RN 09/13/2024 10:03 AM Signed LMP 07/22/24 - 7w4d Calling c/o n/v. Hasn't been able to keep anything down since about noon yesterday. Advised to go to ER for IV fluids and medication. Encouraged to call to schedule n/v f/u after if needed. Discussed vitamin B6 and Unisom too. NOB scheduled for 09/25/24. Only need to call with further advice. Rachael Elena RN Allergies As of Date: 09/13/2024 (No Known Allergies) Date Reviewed: 05/06/2024 Reviewed by: Madi Moss APRN.[facility] - Fully Assessed Reason for Visit: Nausea [70] Prescriptions as of 09/13/2024 - albuterol HFA (PROAIR HFA) 90 mcg/actuation inhaler Inhale 2 Puffs as instructed every 6 hours as needed. Problem List As Of Date 09/13/2024 Noted Resolved Headache, unspecified headache type [R51.9] 06/28/2018 Post concussion syndrome [F07.81] 06/28/2018 10/11/2019 Neck pain [M54.2] 06/28/2018 Depression, major, single episode, mild (HCC) [*06/28/2018 Insomnia due to stress [F51.02] 06/28/2018 Infectious mononucleosis [B27.90] 10/10/2019 Elevated liver enzymes [R74.8] 10/10/2019 Jaundice [R17] 10/10/2019 11/10/2020 Right hip pain [M25.551] 10/11/2019 Asthma [J45.909] JESUS positive [R76.8] Mononucleosis [B27.90] 09/2019 Hepatitis A antibody positive [R76.8] 10/25/2019 11/10/2020 Pain in joint, multiple sites [M25.50] 01/30/2020 Malaise and fatigue [R53.81, R53.83] 01/30/2020 Anxiety and depression [F41.9, F32.A] 11/10/2020 Obesity, Class II, BMI 35-39.9 [E66.812] 04/05/2021 Kidney stone on right side [N20.0] 11/29/2021 COVID-19 affecting , antepartum [O98.5*11/01/2021 Maternal obesity, antepartum [O99.210] 11/15/2021 care, antepartum [Z34.90] 11/15/2021 16 weeks gestation of [Z3A.16] 11/29/2021 Encounter Status:Closed by RACHAEL ELENA on 09/13/24 Normal [facility] C. trachomatis+N. gonorrhoea e DNA LOTTIE+probe Ql (Unsp spec)on 05-06-2024 C. trachomatis rRNA LOTTIE+probe Ql (Unsp spec) Negative Normal Negative for Chlamydia trachomatis by amplificaton [facility] Comment on above: Order Comment: Speci men Type: SWABOrdering Facility: [facility] Address: [address] [place] [address] Performed By: #### 3 6902-5 ####[facility] LABCLIA [id number] [address] [place] N. gonorrhoeae rRNA LOTTIE+probe Ql (Unsp spec) Negative Normal Negative for Neisseria gonorrhoeae by amplification [facility] Comment on above: Order Comment: Speci men Type: SWABOrdering Facility: [facility] Address: [address] [place] [address] Performed By: #### 3 6902-5 ####[facility] LABCLIA [id number] SHANNAJoao [facility] [id number] [id number] [place] CBC panel Auto (Bld)on 05-06 Erythrocyte distribution width (RBC) [Ratio] 13.8 % Normal 11.5-15.0 [facility] Comment on above: Order Comment: Speci men Type: BLOOD SPECIMENOrdering Facility: [facility] Address: [address] [place] [address] Performed By: #### 5 8410-2 ####[facility] [id number] [place] [address] [place] Hematocrit (Bld) [Volume fraction] 44.3 % Normal 36.0-46.0 [facility] Comment on above: Order Comment: Speci men Type: BLOOD SPECIMENOrdering Facility: [facility] Address: [address] [place] [address] Performed By: #### 5 8410-2 ####[facility] [id number] [place] [address] [place] Hemoglobin (Bld) [Mass/Vol] 14.2 g/dL Normal 11.5-15.5 [facility] Comment on above: Order Comment: Speci men Type: BLOOD SPECIMENOrdering Facility: [facility] Address: [address] [place] [address] Performed By: #### 5 8410-2 ####[facility] [id number] [place] [address] [place] MCH (RBC) [Entitic mass] 27.5 pg Normal 26.0-34.0 [facility] Comment on above: Order Comment: Speci men Type: BLOOD SPECIMENOrdering Facility: [facility] Address: [address] [place] [address] Performed By: #### 5 8410-2 ####[facility] [id number] [place] [address] [place] MCHC (RBC) [Mass/Vol] 32.1 g/dL Normal 30.5-36.0 [facility] Comment on above: Order Comment: Speci men Type: BLOOD SPECIMENOrdering Facility: [facility] Address: [address] [place] [address] Performed By: #### 5 8410-2 ####[facility] [id number] [place] [address] [place] MCV (RBC) [Entitic vol] 85.7 fL Normal 80.0-100.0 [facility] Comment on above: Order Comment: Speci men Type: BLOOD SPECIMENOrdering Facility: [facility] Address: [address] [place] [address] Performed By: #### 5 8410-2 ####[facility] [id number] [place] [address] [place] Nucleated RBC (Bld) [#/Vol] 10*3/uL Normal <0.01 [facility] Comment on above: Order Comment: Speci men Type: BLOOD SPECIMENOrdering Facility: [facility] Address: [address] [place] [address] Performed By: #### 5 8410-2 ####[facility] [id number] [place] [address] [place] Platelet mean volume (Bld) [Entitic vol] 9.2 fL Normal 9.0-12.7 [facility] Comment on above: Order Comment: Speci men Type: BLOOD SPECIMENOrdering Facility: [facility] Address: [address] [place] [address] Performed By: #### 5 8410-2 ####[facility] [id number] [place] [address] [place] Platelets (Bld) [#/Vol] 317 10*3/uL Normal 150-400 [facility] Comment on above: Order Comment: Speci men Type: BLOOD SPECIMENOrdering Facility: [facility] Address: [address] [place] [address] Performed By: #### 5 8410-2 ####[facility]DA[facility]CLIA [id number] [place] [address] [place] RBC (Bld) [#/Vol] 5.17 10*6/uL Normal 3.90-5.20 [facility] Comment on above: Order Comment: Speci men Type: BLOOD SPECIMENOrdering Facility: [facility] Address: [address] [place] [address] Performed By: #### 5 8410-2 ####[facility] [id number] [place] [address] [place] WBC (Bld) [#/Vol] 9.75 10*3/uL Normal 3.70-11.00 [facility] Comment on above: Order Comment: Speci men Type: BLOOD SPECIMENOrdering Facility: [facility] Address: [address] [place] [address] Performed By: #### 5 8410-2 ####[facility] [id number] [place] [address] [place] CNOVon 05-06-2024 CNOV Office Visit (OBGYWM ) -- MICHAEL PALMA ([id number]) 2 F UPA Date Time Provider Department 05/06/24 3:30 PM MADI MOSS OBSHERIF During your visit today, we recorded the following information about you: Pulse Respiration Blood pressure Weight 82/minute 16/minute 120/74 109.8 kg Madi Moss APRN.CNP 05/06/2024 4:36 PM Signed Data Control Clerk offered: Patient declines. Michael is a 23 year old Female who presents for Nexplanon removal for desires conception. UNIVERSAL PROTOCOL / SAFETY CHECKLIST Procedure to be Performed: Nexplanon Removal Sign In: A Moment of CARE was completed. Personnel directly involved with the procedure wore the appropriate PPE (Personal Protective Equipment). Patient/Surrogate Stated/Verified: PATIENT VERIFIED(optional for EMERGENT procedures): Patient name, Date of , Relevant allergies, and The intended procedure Time Out Communication: Intended patient and procedure match the source documents. Consent documented and matches the intended procedure. Sign Out: SIGN OUT (optional for EMERGENT procedures): No specimen collected. All instruments, equipment, possible retained foreign bodies accounted for. Post-procedure follow-up management communicated and Plan of Care Visit completed when applicable. TECHNIQUE: Patient placed in supine position with left arm bent at the elbow and placed over the head. Skin cleansed with betadine. 2 mL of 1% lidocaine with epi injected subQ along insertion site. Scalpel used to made a 5mm stab incision superficially at distal end of Nexplanon. Device removed under sterile technique with a small hemostat. Sterile pressure dressing applied. AANDP: 23 year old Female here for Nexplanon removal Nexplanon removed intact without difficulty. The patient was instructed to remove the dressing after 24 hours. Contraceptive plans: condoms Madi Moss APRN.CNP Referring Provider: MADI MOSS [[id number]] Allergies As of Date: 05/06/2024 (No Known Allergies) Date Reviewed: 05/06/2024 Reviewed by: Madi Moss APRN.CNP - Fully Assessed Reason for Visit: Nexplanon Removal [Other] Primary Visit Diagnosis:Nexplanon removal [Z30.46] Other Visit Diagnosis:Screening for STD (sexually transmitted disease) [Z11.3] Order(s):GONORRHEA/CHLAMYD IA NAAT [SQGCCT] Order #: [id number]. #:[id number] Prescriptions as of 05/06/2024 - albuterol HFA (PROAIR HFA) 90 mcg/actuation inhaler Inhale 2 Puffs as instructed every 6 hours as needed. Problem List As Of Date 05/06/2024 Noted Resolved Headache, unspecified headache type [R51.9] 06/28/2018 Post concussion syndrome [F07.81] 06/28/2018 10/11/2019 Neck pain [M54.2] 06/28/2018 Depression, major, single episode, mild (HCC) [*06/28/2018 Insomnia due to stress [F51.02] 06/28/2018 Infectious mononucleosis [B27.90] 10/10/2019 Elevated liver enzymes [R74.8] 10/10/2019 Jaundice [R17] 10/10/2019 11/10/2020 Right hip pain [M25.551] 10/11/2019 Asthma [J45.909] JESUS positive [R76.8] Mononucleosis [B27.90] 09/2019 Hepatitis A antibody positive [R76.8] 10/25/2019 11/10/2020 Pain in joint, multiple sites [M25.50] 01/30/2020 Malaise and fatigue [R53.81, R53.83] 01/30/2020 Anxiety and depression [F41.9, F32.A] 11/10/2020 Obesity, Class II, BMI 35-39.9 [E66.9] 04/05/2021 Kidney stone on right side [N20.0] 11/29/2021 COVID-19 affecting , antepartum [O98.5*11/01/2021 Maternal obesity, antepartum [O99.210] 11/15/2021 care, antepartum [Z34.90] 11/15/2021 16 weeks gestation of [Z3A.16] 11/29/2021 Medications Discontinued During This Encounter Prescriptions - albuterol HFA (PROVENTIL HFA, VENTOLIN HFA) 90 mcg/actuation inhaler (Discontinued) Reported on 05/03/2024 - benzonatate (TESSALON PERLE) 100 mg capsule (Discontinued) Reported on 10/29/2023 - etonogestrel (NEXPLANON) 68 mg impl subdermal implant (Discontinued) 68 mg by SUBDERMAL route one time only. Inserted 06/14/2022 through 06/14/2025. - FLUoxetine (PROZAC) 10 mg capsule (Discontinued) Reported on 10/29/2023 - fluticasone (FLONASE ALLERGY RELIEF) 50 mcg/actuation nasal spray (Discontinued) Reported on 11/28/2022 Encounter Status:Closed by MADI MOSS on 05/06/24 Normal [facility] HbA1c (Bld)on 05-06-2024 Average glucose Estimated from glycated hemoglobin (Bld) [Mass/Vol] 88 mg/dL Normal [facility] Comment on above: Order Comment: Cheryl raza Type: BLOOD SPECIMENOrdering Facility: [facility] Address: [address] [place] [address] Result Comment: eAG: (Estimated average glucose) is a calculated value from HgbA1c and is client services representative of the average blood glucose level in the last 2-3 month period. Performed By: #### 5 5454-3 ####[facility] LABCLIA [id number] [place] [address] [place] HbA1c (Bld) [Mass fraction] 4.7 % Normal 4.3-5.6 [facility] Comment on above: Order Comment: Cheryl raza Type: BLOOD SPECIMENOrdering Facility: [facility] Address: [address] [place] [address] Result Comment: Ambob ican Diabetes Association guidelines indicate that patients with HgbA1c in the range 5.7-6.4% are at increased risk for development of diabetes, and intervention by lifestyle modification may be beneficial. HgbA1c greater or equal to 6.5% is considered diagnostic of diabetes. Performed By: #### 5 5454-3 ####[facility] LABCLIA [id number] [place] [address] [place] Prolactin SerPl-mCncon 05-06 Prolactin [Mass/Vol] 11.2 ng/mL Normal 4.5-26.8 [facility] Comment on above: Order Comment: Cheryl raza Type: BLOOD SPECIMEN Ordering Facility: [facility] Address: [address] [place] [address] Result Comment: Prol actin test is performed using the [employer] Electrochemiluminescence Immunoassay method. Results obtained with different methods or kits cannot be used interchangeably. Performed By: #### 2 4323-8 #### [facility] CLIA [id number] [address] [place] [address] [place] T4 Free SerPl-mCncon 024 Free T4 [Mass/Vol] 1.1 ng/dL Normal 0.9-1.7 [facility] Comment on above: Order Comment: Speci men Type: BLOOD SPECIMEN Ordering Facility: [facility] Address: [address] [place] [address] Performed By: #### 2 4323-8 #### [facility] CLIA [id number] [address] [place] [address] [place] TSH SerPl-aCncon 05-06-2024 TSH Qn 2.590 m[IU]/L Normal 0.270-4.200 [facility] Comment on above: Order Comment: Speci men Type: BLOOD SPECIMEN Ordering Facility: [facility] Address: [address] [place] [address] Result Comment: If t he patient is , TSH reference range varies by gestational period: First Trimester (weeks 9-12): 0.180-2.990 mIU/L Second Trimester: 0.110-3.980 mIU/L Third Trimester: 0.480-4.710 mIU/L Cornelio Mcintosh et al. A Practical Approach for the Verifications and Determination of Site- and Trimester-Specific Reference Intervals for Thyroid Function tests in . Thyroid, 2019:29:3:412-420. Dorian E, et al. 2017 Guidelines of the [place] Thyroid Association for the Diagnosis and Management of Thyroid Disease during and the . Thyroid, 2017:27:3:315-389. Performed By: #### 2 4323-8 #### [facility] CLIA [id number] [address] [place] [address] [place] BACTERIAL VAGINOSIS NAATon 0 05-03-2024 Lactobacillus crispatus+gasseri+j ensenii + Gardnerella vaginalis + Atopobium vaginae rRNA LOTTIE+probe Ql (Vag fld) Negative Normal Negative for bacterial vaginosis [facility] Comment on above: Order Comment: Speci men Type: SWABOrdering Facility: [facility] Address: [address] [place] [address] Performed By: #### C VTV, BVAMP ####[facility] LABCLIA [id number] [place] [address] [place] ALIREZA/TRICHOMONAS NAATon 0 05-03-2024 C. glabrata RNA LOTTIE+probe Ql (Vag fld) Negative Normal Negative for Alireza glabrata [facility] Comment on above: Order Comment: Speci men Type: SWABOrdering Facility: [facility] Address: [address] [place] [address] Performed By: #### C VTV, BVAMP ####[facility] LABCLIA [id number] [place] [address] [place] Alireza sp DNA LOTTIE+probe Ql (Vag fld) Negative Normal Negative for Alireza species [facility] Comment on above: Order Comment: Speci men Type: SWABOrdering Facility: [facility] Address: [address] [place] [address] Performed By: #### C VTV, BVAMP ####[facility] LABCLIA [id number] [place] [address] [place] T. vaginalis DNA LOTTIE+probe Ql (Unsp spec) Negative Normal Negative for Trichomonas vaginalis by amplification [facility] Comment on above: Order Comment: Speci men Type: SWABOrdering Facility: [facility] Address: [address] [place] [address] Performed By: #### C VTV, BVAMP ####[facility] LABCLIA [id number] [place] [address] [place] CNOVon 05-03-2024 CNOV Office Visit (OBGYWM ) -- MICHAEL PALMA ([id number]) 2 F UPA Date Time Provider Department 05/03/24 2:00 PM MADI MOSS During your visit today, we recorded the following information about you: Pulse Respiration Blood pressure Weight 91/minute 14/minute 104/70 107 kg Height Last Period 1.71 m 01/18/24 Madi Moss APRN.CANDY CUTTER MACHINE 05/03/2024 2:27 PM Signed Data Control Clerk offered: Patient declines. Michael is a 23 year old No obstetric history on file. who presents for an annual gynecologic exam with complaints of weight gain, nipple discharge, vaginal odor, and wanting Nexplanon out. Considering . Menses: Irregular menses due to Nexplanon. Contraception: Nexplanon HPV vaccine: Yes Last Pap: never HPV: NA History of abnormal pap: No Last mammogram: never Sexually active: Yes History of STDS: Gonorrhea Pain with intercourse: No Postcoital bleeding: No Exercise: walking OB History No obstetric history on file. Power Originator History LMP: 01/18/2024, Having periods Age at Menarche: Age at First : Age at Menopause: Power Originator History Comments: Sexual Activity: Yes; Male Contraception: Pill, Condom PAST MEDICAL HISTORY No date: Allergic rhinitis No date: Asthma 2019: Concussion No date: Depression 09/2019: Elevated liver enzymes Comment: Due to mono 09/2019: Mononucleosis No date: Positive JESUS (antinuclear antibody) No date: Postconcussive syndromePAST SURGICAL HISTORY No date: NONE FAMILY HISTORY Problem Relation Age of Onset Heart Maternal Grandfather Heart Paternal Grandfather Alzheimer's Disease Maternal Grandmother SOCIAL HISTORY Social History Tobacco Use Smoking status: Some Days Types: Cigarettes Last attempt to quit: 06/26/2019 Years since quittin.8 Smokeless tobacco: Never Tobacco comments: sometimes smokes . sometimes hits boyfriends vape Vaping Use Vaping Use: Former Substance Use Topics Alcohol use: Yes Comment: occ. Drug use: No REVIEW OF SYSTEMS Abdomen: No abdominal pain, nausea, vomiting, diarrhea, or constipation. No bloating, early satiety, indigestion, or increased flatulence. Bladder: No dysuria, gross hematuria, urinary frequency, urinary urgency, or incontinence. Breast: No breast lumps, overlying skin changes, redness or skin retraction. + thick nipple discharge bilaterally Allergies and current medication updated:Yes EXAM: BP 104/70 Pulse 91 Resp 14 Ht 5' 7.323 (1.71m) Wt 236 lb (107.0kg) SpO2 98% LMP 01/18/2024 BMI 36.61 kg/(m2). GENERAL: pleasant, female in no apparent distress HEENT: Normocephalic, atraumatic, mucus membranes moist, and no lesions NECK: Supple, full range of motion, no adenopathy, and thyroid normal DERMATOLOGY: Normal, without lesions, non-icteric, and non-hirsute BREAST: soft, non-tender, symmetric, no dominant mass, normal nipple-areolar complex, no lymphadenopathy, and no nipple discharge CHEST: Normal inspiratory effort ABDOMEN: soft, non-tender, and no masses PELVIC: external genitalia normal, normal Bartholin's glands, urethra, Colonia's glands, no vulvar lesions, no cervical lesions, good vaginal support, physiologic discharge present, normal appearing perineal body and perianal region BIMANUAL: uterus normal size, shape and consistency, no adnexal masses, and non-tender RECTOVAGINAL: deferred. NEURO: alert and oriented x3,exam grossly non-focal EXTREMITIES: normal ASSESSMENT/PLAN: 1) Health maintenance: Pap done with reflex HPV. Nutrition, exercise and routine health maintenance exams reviewed. Smoking cessation: Patient encouraged to avoid smoking. HPV vaccine: completed series 2) Contraception: Nexplanon. Planning for removal. Encouraged PNV and to stop smoking. 3) STD screening: Accepted STD check for Gonorrhea and Chlamydia. 4) Follow up one year or sooner as needed Nipple discharge - ICD9: 611.79, ICD10: N64.52 - Occurs bilaterally in shower - Avoid nipple stimulation - Labs ordered - Follow up if persistent Vaginal odor - ICD9: 625.8, ICD10: N89.8 - Recommend women's health probiotic - ALIREZA/TRICHOMONAS NAAT - BACTERIAL VAGINOSIS NAAT Obesity, unspecified classification, unspecified obesity type, unspecified whether serious comorbidity present - ICD9: 278.00, ICD10: E66.9 - Wants to lose weight before becoming - CONSULT TO [facility] for Nexplanon removal. Madi Moss APRN.CNP Medical Decision Making: Problems: Low: Acute, uncomplicated illness or injury Data: Unique test(s) ordered: 3+ Risk: Low: Low risk from testing/treatment Medical Decision Making Level: 3 - Low Madi Moss APRN.CNP 05/03/2024 2:18 PM Addendum ____ *Revaree is a [facility] recommended, leading selling vaginal insert for the relief of symptoms of vaginal atrophy and the mandaen of the vagi (more content not included)... Normal [facility] PAP TESTon 05-03-2024 ADEQUACY Satisfactory for interpretation. Normal [facility] Comment on above: Order Comment: Speci men Type: FLUID SPECIMENOrdering Facility: [facility] Address: [address] [place] [address] Performed By: #### L [id number] ####[facility] LABCLIA [id number] [place] [address] [place] CASE REPORT Normal [facility] Comment on above: Order Comment: Speci men Type: FLUID SPECIMENOrdering Facility: [facility] Address: [address] [place] [address] Result Comment: Gyne cologic Cytology Report Case: [id number] Authorizing Provider: Madi Moss APRN.CNP Collected: 05/03/2024 02:26 PM Ordering Location: OB/Gynecology Received: 05/03/2024 04:55 PM First Screen: [place], [place], [place], ASCP Specimen: Pap Test, ThinPrep, Cervix Performed By: #### L [id number] ####[facility] LABCLIA [id number] [place] [address] [place] CLINICAL HISTORY, CYTOLOGY, PLATE WASHER Routine Exam Normal [facility] Comment on above: Order Comment: Speci men Type: FLUID SPECIMENOrdering Facility: [facility] Address: [address] [place], [place] [id number] Performed By: #### L [id number] ####[facility] LABCLIA [id number] [place] [address] [place] FINAL PERFORMING LAB Normal [facility] Comment on above: Order Comment: Speci men Type: FLUID SPECIMENOrdering Facility: [facility] Address: [address] [place] [address] Result Comment: Tech nical component, certified nurse screening performed at [facility], [address] [place] [address] [place] [address] CLIA# [id number] Diagnostic interpretation performed at [facility], [address] [place], [place] [id number] CLIA# [id number] Cooker Syrup: London Rodriguez M.D. Performed By: #### L [id number] ####[facility] LABCLIA [id number] [place] [address] [place] HPV REFLEX HPV if Atypical Normal [facility] Comment on above: Order Comment: Speci men Type: FLUID SPECIMENOrdering Facility: [facility] Address: [address] [place] [address] Performed By: #### L [id number] ####[facility] LABCLIA [id number] [place] [id number] [place] INTERPRETATION, CYTOLOGY, PLATE WASHER Normal [facility] Comment on above: Order Comment: Speci men Type: FLUID SPECIMENOrdering Facility: [facility] Address: [address] [place] [address] Result Comment: Nega tive for intraepithelial lesion or malignancy. Performed By: #### L [id number] ####[facility] LABCLIA [id number] [place] [id number] [place] LMP 01/09/2024 Normal [facility] Comment on above: Order Comment: Speci men Type: FLUID SPECIMENOrdering Facility: [facility] Address: [address] [place] [address] Result Comment: Comm ent: Estimated date, has Nexplanon Performed By: #### L [id number] ####[facility] LABCLIA [id number] [place] [address] [place] PAP DISCLAIMER COMMENT The Pap Smear is a screening test for cervical cancer. False negative results occur with all screening tests, emphasizing the need for rescreening at recommended intervals, and clinical correlation. Normal [facility] Comment on above: Order Comment: Speci men Type: FLUID SPECIMENOrdering Facility: [facility] Address: [address] [place] [address] Performed By: #### L [id number] ####[facility] LABCLIA [id number] [place] [address] [place] PAP MACHINE STAPLER COMMENT This specimen has be en analyzed by the ThinPrep Imaging System, an automated imaging and review system, which assists the laboratory in evaluating cells on ThinPrep Pap tests. Following automated imaging, selected guzman from every slide are reviewed by a certified nurse. Normal [facility] Comment on above: Order Comment: Speci men Type: FLUID SPECIMENOrdering Facility: [facility] Address: [address] [place] [address] Performed By: #### L [id number] ####[facility] LABCLIA [id number] [place] [address] [place] XR Chest PA and Lateralon IMPRESSION: NO EVIDENCE OF ACTIVE DISEASE. Chaperon: PSCB Transcribe Date/Time: Oct 30 2023 11:04A Dictated by : APARNA ZUNIGA MD This examination was interpreted and the report reviewed and electronically signed by: APARNA ZUNIGA MD on Oct 30 2023 11:06AM [facility] DIVISION OF RADIOLOGY * * *Final Report* * * DATE OF EXAM: Oct 30 2023 11:04AM WOX [id number] - XR CHEST 2V FRONTAL/LAT / PROCEDURE REASON: Rhonchi at right lung base * * * * Physician Interpretation * * * * PA and lateral chest x-ray: HISTORY: Rhonchi at right lung base FINDINGS: The cardiac-pericardial silhouette size and configuration appears normal. The pulmonary vasculature appears normal. The lungs are clear. The costophrenic angles appear sharp. DIVISION OF RADIOLOGY Provider, [facility] - 10/30/2023 * * *Final Report* * * DATE OF EXAM: Oct 30 2023 11:04AM WOX [id number] - XR CHEST 2V FRONTAL/LAT / PROCEDURE REASON: Rhonchi at right lung base * * * * Physician Interpretation * * * * PA and lateral chest x-ray: HISTORY: Rhonchi at right lung base FINDINGS: The cardiac-pericardial silhouette size and configuration appears normal. The pulmonary vasculature appears normal. The lungs are clear. The costophrenic angles appear sharp. IMPRESSION IMPRESSION: NO EVIDENCE OF ACTIVE DISEASE. [facility] Transcribe Date/Time: Oct 30 2023 11:04A Dictated by : APARNA ZUNIGA MD This examination was interpreted and the report reviewed and electronically signed by: APARNA ZUNIGA MD on Oct 30 2023 11:06AM EST [facility] Radiology Study observation (narrative) [facility] XR Chest PA and LateralOrder ed By: [facility] Provider on 10-30-2023 [facility] XR Toes - right 3 Viewson IMPRESSION: Acute fifth proximal phalanx fracture. Chaperon: [facility] Transcribe Date/Time: Oct 30 2023 12:08P Dictated by : AGNIESZKA CUNNINGHAM MD This examination was interpreted and the report reviewed and electronically signed by: AGNIESZKA CUNNINGHAM MD on Oct 30 2023 12:08PM [facility] DIVISION OF RADIOLOGY * * *Final Report* * * DATE OF EXAM: Oct 30 2023 12:03PM WOX [id number] - XR TOE 3V AP/LAT/OBL RT / PROCEDURE REASON: Pain * * * * Physician Interpretation * * * * TITLE: XR TOE 3V AP/LAT/OBL RT CLINICAL INDICATION: Pain TECHNIQUE: 3 view radiographic study of the right fifth toe COMPARISON: Right foot radiograph dated February 04, 2022 FINDINGS: Acute, oblique, minimally impacted fracture of the proximal shaft of the fifth proximal phalanx without evidence of intra-articular extension. DIVISION OF RADIOLOGY Provider, Laurence Leon - 10/30/2023 * * *Final Report* * * DATE OF EXAM: Oct 30 2023 12:03PM WOX [id number] - XR TOE 3V AP/LAT/OBL RT / PROCEDURE REASON: Pain * * * * Physician Interpretation * * * * TITLE: XR TOE 3V AP/LAT/OBL RT CLINICAL INDICATION: Pain TECHNIQUE: 3 view radiographic study of the right fifth toe COMPARISON: Right foot radiograph dated February 04, 2022 FINDINGS: Acute, oblique, minimally impacted fracture of the proximal shaft of the fifth proximal phalanx without evidence of intra-articular extension. IMPRESSION IMPRESSION: Acute fifth proximal phalanx fracture. Chaperon: SHAN Transcribe Date/Time: Oct 30 2023 12:08P Dictated by : AGNIESZKA CUNNINGHAM MD This examination was interpreted and the report reviewed and electronically signed by: AGNIESZKA CUNNINGHAM MD on Oct 30 2023 12:08PM EST [facility] Radiology Study observation (narrative) [facility] XR Toes - right 3 ViewsOrder ed By: [facility] Provider on 10-30-2023 [facility] STREP A MOLECULAR (POC)on Procedural Control Valid [facility] Strep A (POCT) Negative Negative [facility] STREP A MOLECULAR (POC)on Procedural Control Valid [facility] St[facility] A (POCT) Negative Negative [facility] Influenza virus A and B RNA and SARS-CoV-2 (COVID-19) N gene panel LOTTIE+probe (Resp)on 11-28-2022 FLUAV RNA LOTTIE+probe Ql (Unsp spec) Not detected Not Detected [facility] FLUBV RNA LOTTIE+probe Ql (Unsp spec) Not detected Not Detected [facility] SARS-CoV-2 (COVID-19) RNA LOTTIE+probe Ql (Resp) Not detected See comment [facility] Basophil percentageon 2021 Basophil percentage 0-5 SEEN /hpf 0-5 [facility] Work Phone: Bilirubin [Mass/Vol] 0.30 mg/dL 0.20-1.00 [facility] Work Phone: Comment on above: For patients on eltr ombopag therapy, use of Dimension Peculiar TBIL is not recommended. Chloride [Moles/Vol] 108 mmol/L 98-107 [facility] Work Phone: Glucose [Mass/Vol] 98 mg/dL 74-106 [facility] Work Phone: [phone] Potassium [Moles/Vol] 3.8 mmol/L 3.5-5.1 [facility] Work Phone: [phone] Protein [Mass/Vol] 6.5 g/dL 6.4-8.2 [facility] Work Phone: [phone] Sodium [Moles/Vol] 140 mmol/L 136-145 [facility] Work Phone: WBC (Bld) [#/Vol] 11.2 10*3/uL 4.4-11.0 [facility] Work Phone: Bilirubin Test strip Ql (U)o n 05-25-2022 Bilirubin Ql (U) Negative Negative [facility] Work Phone: Blood erythrocytes count (nu mber/volume)on 05-25-2022 RBC (Bld) [#/Vol] 4.59 10*6/uL 4.2-5.4 [facility] Work Phone: Blood hemoglobin measurement (mass/volume)on 05-25-2022 Hemoglobin (Bld) [Mass/Vol] 10.3 g/dL 12.0-15.0 [facility] Work Phone: Blood platelet mean volumeon 05-25-2022 Platelet mean volume (Bld) [Entitic vol] 9.8 fL 6.2-12.0 [facility] Work Phone: Determination of erythrocyte mean corpuscular volume (MCV)on 05-25-2022 MCV (RBC) [Entitic vol] 75.2 fL 81-99 [facility] Work Phone: Hematocrit Auto (Bld) [Volum e fraction]on 05-25-2022 Hematocrit (Bld) [Volume fraction] 34.5 % 37-47 [facility] Work Phone: [phone] Ketones Test strip Ql (U)on 05-25-2022 Ketones Ql (U) Negative Negative [facility] Work Phone: [phone] Laboratory - Chemistry and C hemistry - challengeon 05-25-2022 ALP [Catalytic activity/Vol] 162 U/L 45-117 [facility] Work Phone: ALT [Catalytic activity/Vol] 13 U/L 13-56 [facility] Work Phone: CO2 [Moles/Vol] 23.0 mmol/L 21.0-32.0 [facility] Work Phone: [phone] Globulin (S) [Mass/Vol] 4.0 g/dL 2.2-4.2 [facility] Work Phone: [phone] Urea nitrogen/Creatinine [Mass ratio] 14.9 mg/mg 10-20 [facility] Work Phone: Laboratory - Hematology and Cell countson 05-25-2022 Erythrocyte distribution width (RBC) [Entitic vol] 42.9 fL 35.1-43.9 [facility] Work Phone: [phone] Erythrocyte distribution width (RBC) [Ratio] 16.0 % 11.6-14.6 [facility] Work Phone: [phone] MCH (RBC) [Entitic mass] 22.4 pg 27.0-32.0 [facility] Work Phone: MCHC Auto (RBC) [Mass/Vol]on 05-25-2022 MCHC (RBC) [Mass/Vol] 29.9 g/dL 32-36 [facility] Work Phone: Mucus LM Ql (Urine sed)on Mucus Ql (Urine sed) 0 SEEN /hpf [facility] Work Phone: Nitrite Test strip Ql (U)on 05-25-2022 Nitrite Ql (U) Negative Negative [facility] Work Phone: No Panel Informationon 05-25 Estimated Creatinine Clearance Calc 143.69 ml/min [facility] Work Phone: Estimated GFR (MDRD) Amer 154 mL/min >60 [facility] Work Phone: Comment on above: GFR Calc Estimated GFR (MDRD) Non-Af Amer 127 mL/min >60 [facility] Work Phone: Comment on above: Non- GFR Calc Platelets bldon 05-25-2022 Platelets (Bld) [#/Vol] 347 10*3/uL 150-450 [facility] Work Phone: Protein Test strip Ql (U)on 05-25-2022 Protein Ql (U) 15 mg/dl Negative [facility] Work Phone: Serum or plasma albumin julio urement (mass/volume)on 05-25-2022 Albumin [Mass/Vol] 2.5 g/dL 3.2-5.0 [facility] Work Phone: Serum or plasma albumin/glob ulin mass ratioon 05-25-2022 Albumin/Globulin [Mass ratio] 0.6 {ratio} 0.9-2.4 [facility] Work Phone: Serum or plasma calcium julio urement (mass/volume)on 05-25-2022 Calcium [Mass/Vol] 9.0 mg/dL 8.5-10.1 [facility] Work Phone: Serum or plasma creatinine m easurement (mass/volume)on 05-25-2022 Creatinine [Mass/Vol] 0.63 mg/dL 0.55-1.02 [facility] Work Phone: Comment on above: The validity of the calculated GFR & GFRAA in patients over 70 years has not been determined. Clinical correlation is essential. Serum or plasma urea nitroge n measurement (mass/volume)on 05-25-2022 Urea nitrogen [Mass/Vol] 9 mg/dL 7-18 [facility] Work Phone: Serum or plasma uric acid me asurement (mass/volume)on 05-25-2022 Urate [Mass/Vol] 4.3 mg/dL 2.6-6.0 [facility] [facility] Work Phone: Comment on above: The drugs N-Acetylcy steine and Metamizole may falsely depress this assay. Squamous epithelial cells de tection in urine sediment by light microscopyon 05-25-2022 Epithelial cells.squamous LM Ql (Urine sed) 0-5 SEEN /hpf 5-10 [facility] Work Phone: Thin prep Papanicolaou smear with manual screeningon 05-25-2022 Thin prep Papanicolaou smear with manual screening 14 U/L 15-37 [facility] Work Phone: Thin prep Papanicolaou smear with manual screening 9 5-15 [facility] Work Phone: Thin prep Papanicolaou smear with manual screening 161 U/L 84-246 [facility] Work Phone: Urine blood detectionon RBC Ql (U) 250 /ul Negative [facility] Work Phone: RBC Ql (U) 0 SEEN /hpf 0-5 [facility] Work Phone: Urine clarityon 05-25-2022 Clarity (U) Sl. Cloudy Clear [facility] Work Phone: Urine color determinationon 05-25-2022 Color (U) Yellow Yellow [facility] Work Phone: Urine creatinine measurement (mass/volume)on 05-25-2022 Creatinine (U) [Mass/Vol] 53.80 mg/dL NO RANGE EST. [facility] Work Phone: [phone] Urine glucose detectionon Glucose Ql (U) Normal mg/dl Normal [facility] Work Phone: Urine leukocyte esterase det ection by dipstickon 05-25-2022 Leukocyte esterase Test strip Ql (U) 100 /ul Negative [facility] Work Phone: [phone] Urine pHon 05-25-2022 pH (U) 6.0 [pH] 5.0 - 8.0 [facility] Work Phone: Urine protein measurement (m ass/volume)on 05-25-2022 Protein (U) [Mass/Vol] 11.0 mg/dL 0.0-11.8 [facility] Work Phone: [phone] Urine protein/creatinine mas s ratioon 05-25-2022 Protein/Creatinine (U) [Mass ratio] 204 mg/g CRE 0-200 [facility] Work Phone: [phone] Urine sediment bacteria coun t by microscopy (number/high power field)on 05-25-2022 Bacteria LM.HPF (Urine sed) [#/Area] 1 /[HPF] None Seen [facility] Work Phone: [phone] Urine specific gravity measu rementon 05-25-2022 Specific gravity (U) [Rel density] 1.010 1.002-1.030 [facility] Work Phone: [phone] Urobilinogen Auto test strip Ql (U)on 05-25-2022 Urobilinogen Ql (U) Normal mg/dl Normal [facility] Work Phone: [phone] Basophil percentageon 2021 WBC (Bld) [#/Vol] 10.4 10*3/uL 4.4-11.0 [facility] Work Phone: [phone] Blood erythrocytes count (nu mber/volume)on 03-15-2022 RBC (Bld) [#/Vol] 4.15 10*6/uL 4.2-5.4 [facility] Work Phone: [phone] Blood hemoglobin measurement (mass/volume)on 03-15-2022 Hemoglobin (Bld) [Mass/Vol] 11.0 g/dL 12.0-15.0 [facility] Work Phone: [phone] Blood platelet mean volumeon 03-15-2022 Platelet mean volume (Bld) [Entitic vol] 9.8 fL 6.2-12.0 [facility] Work Phone: Determination of erythrocyte mean corpuscular volume (MCV)on 03-15-2022 MCV (RBC) [Entitic vol] 82.7 fL 81-99 [facility] Work Phone: Gestational diabetes screen 1-hour screen with 50g oral glucose loadon 03-15-2022 Glucose 1 Hr post 50 g glucose PO [Mass/Vol] 122 mg/dL 70-140 [facility] Work Phone: Hematocrit Auto (Bld) [Volum e fraction]on 03-15-2022 Hematocrit (Bld) [Volume fraction] 34.3 % 37-47 [facility] Work Phone: Laboratory - Hematology and Cell countson 03-15-2022 Erythrocyte distribution width (RBC) [Entitic vol] 40.0 fL 35.1-43.9 [facility] Work Phone: Erythrocyte distribution width (RBC) [Ratio] 13.3 % 11.6-14.6 [facility] Work Phone: MCH (RBC) [Entitic mass] 26.5 pg 27.0-32.0 [facility] Work Phone: MCHC Auto (RBC) [Mass/Vol]on 03-15-2022 MCHC (RBC) [Mass/Vol] 32.1 g/dL 32-36 [facility] Work Phone: Platelets bldon 03-15-2022 Platelets (Bld) [#/Vol] 324 10*3/uL 150-450 [facility] Work Phone: Progress Noteon 01-25-2022 [employer] Authentication Interface Message Text [facility] MATERNAL- MEDICINE FOLLOW-UP CONSULT Referring/Requesting Provider: CHUCHO Frye PCP: Gabriella Cassidy MD HISTORY OF PRESENT ILLNESS: Patient is a 21 y.o. at 23w3d who presents for follow-up consultation regarding possible autoimmune disease and non-specific feeling of lightheaded and dizziness. She is now asymptomatic. She Does eat more frequwntly and is working on a health diet. Her BG pattern test showed normal glucose. No shortness of breath, palpitations, chest discomfort. No OB concerns. OB History Para Term AB Living 1 SAB IAB Ectopic Multiple Live Births # Outcome Date GA Lbr Ronald/2nd Weight Sex Delivery Anes PTL Lv 1 Current Past Medical History: Diagnosis Date JESUS positive Anxiety Autoimmune disease Depression Transaminitis elevated liver enzymes in 2019 Uncomplicated asthma No past surgical history on file. PERTINENT FAMILY HISTORY: Family History Problem Relation Age of Onset Mental Illness Mother depression, admitted to facilty when i was younger Anxiety Disorder Mother Kidney Disease Father kidney failure Brain Tumor Father on pituitary gland Thyroid Disease Sister Alzheimer's Disease Maternal Grandmother Dementia Maternal Grandmother Macular Degen Maternal Grandmother High Blood Pressure Maternal Grandfather Heart Disease Maternal Grandfather Mental Illness Paternal Grandmother depression Anxiety Disorder Paternal Grandmother COPD Paternal Grandmother Kidney Disease Paternal Grandmother kidney failure Obesity Paternal Grandmother bariatric surgery Clotting Disorder Paternal Grandfather blood clots in legs Heart Disease Paternal Grandfather of heart attack High Blood Pressure Paternal Grandfather Diabetes Mellitus II Paternal Grandfather Obesity Paternal Aunt bariatric surgery Obesity Paternal Uncle bariatric surgery Clotting Disorder Paternal Uncle blood clots in leg MEDS: No outpatient medications have been marked as taking for the 01/25/22 encounter (Ancillary Procedure Visit) with Leni Ocampo DO. ALLERGY: No Known Allergies REVIEW OF SYSTEMS: ROS - negative PHYSICAL EXAM: VITAL SIGNS:BP 110/61 Wt (!) 99.6 kg (219 lb 8 oz) LMP 08/14/2021 AAOx3, NAD Resp effort normal IMAGING: Normal growth and echo. IMPRESSION AND RECOMMENDATIONS: Michael is a 21 y.o. at 23w3d with Active Non-Hospital Problems Diagnosis Date Noted Anxiety 12/30/2021 Depression 12/30/2021 Supervision of other high risk pregnancies, second trimester 12/30/2021 - Horizon Negative, panorama low risk. 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 Per patient report she was told she does not have lupus. She had a recent telehealth with Rheumatology. - Rheumatology labs including SSA and SSB are negative - see media tab.. Family history of congenital heart defect - FOB And FOB's brother born with holes in heart, both closed on their own. - echo normal Kidney stone on right side 11/29/2021 No current problems Anxiety disorder affecting , antepartum 11/15/2021 - Not on medication. - Stable mood. 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 Work-up completed by rheumatology. - No known etiology. COVID-19 affecting , antepartum 11/01/2021 - Covid 10/15/21, mild Elevated liver enzymes 10/10/2019 - occurred during illness with covid, repeat LFTs were normal Follow up with MFM as needed. Chart review and preparation: 6 minutes. Face to face: 8 minutes. Documentation and care coordination: 7 minutes. Total time spent on patient care today: 21 minutes. Normal [facility] BETA 2 GLYCOPROTEIN, IGGon 0 12-31-2021 Beta 2 glycoprotein 1 IgG IA Qn <9 Normal <20 [facility] Comment on above: Order Comment: Cheryl raza Type: BLOOD SPECIMENOrdering Facility: [facility] Address: [address] [place] [address] Result Comment: <20 SGU Negative 20-80 SGU Low Positive >80 SGU High Positive These results were obtained with the [employer]ova QUANTA Lite B2 GPI IgG MAGDALENO. B2 GPI IgG values obtained with different manufacturers' assay methods may not be used interchangeably. The magnitude of the reported IgG levels cannot be correlated to an endpoint titer. Performed By: #### B ETA2M, BETA2G, DNAAB ####[facility] LABCLIA [id number] [address] [place] BETA 2 GLYCOPROTEIN, IGMon 0 12-31-2021 Beta 2 glycoprotein 1 IgM IA Qn <9 Normal <20 [facility] Comment on above: Order Comment: Cheryl raza Type: BLOOD SPECIMENOrdering Facility: [facility] Address: [address] [address] Result Comment: <20 SMU Negative 20-80 SMU Low Positive >80 SMU High positive These results were obtained with the Inova QUANTA Lite B2 GPI IgM MAGDALENO. B2 GPI IgM values obtained with different manufacturers' assay methods may not be used interchangeably. The magnitude of the reported IgM levels cannot be correlated to an endpoint titer. Performed By: #### B ETA2M, BETA2G, DNAAB ####[facility] LABCLIA [id number] [address] CARDIOLIPIN IGG ABSon 2021 Cardiolipin IgG IA Qn (S) <9.0 Normal <15.0 [facility] Comment on above: Order Comment: Cheryl luz marina Type: BLOOD SPECIMENOrdering Facility: [facility] Address: [address] [place] [address] Result Comment: <15 GPL Negative 15-20 GPL Indeterminate >20 GPL Positive The following results were obtained with the Inova QUANTA Lite VALENTE IgG III MAGDALENO. Cardiolipin IgG values obtained with the different manufacturers' assay methods may not be used interchangeably. The magnitude of the reported IgG levels cannot be correlated to an endpoint titer. Performed By: #### 5 076-5SHANNON CARDIG ####[facility] LABCLIA [id number] [address] CARDIOLIPIN IGM ABSon 2021 Cardiolipin IgM IA Qn (S) <9.0 Normal <12.5 [facility] Comment on above: Order Comment: Cheryl luz marina Type: BLOOD SPECIMENOrdering Facility: [facility] Address: [address] [place] [address] Result Comment: <12. 5 MPL Negative 12.5-20 MPL Indeterminate >20 MPL Positive The following results were obtained with the [employer]ova QUANTA Lite VALENTE IgM III MAGDALENO. Cardiolipin IgM values obtained with the different manufacturers' assay methods may not be used interchangeably. The magnitude of the reported IgM levels cannot be correlated to an endpoint titer. ??? Performed By: #### 5 076-5SHANNON CARDIG ####[facility] LABCLIA [id number] [address] CBC W Auto Differential pane l (Bld)on 12-31-2021 Basophils (Bld) [#/Vol] 0.03 10*3/uL Normal <0.11 [facility] Comment on above: Order Comment: Speci men Type: BLOOD SPECIMENOrdering Facility: [facility] Address: [address] [place] [address] Performed By: #### 5 7021-8 ####[facility] [place] LABCLIA [id number] [place] [address] [place] Basophils/100 WBC (Bld) 0.3 % Normal [facility] Comment on above: Order Comment: Speci men Type: BLOOD SPECIMENOrdering Facility: [facility] Address: [address] [place] [address] Performed By: #### 5 7021-8 ####[facility] [place] LABCLIA [id number] [place] [id number] [place] Differential cell count method Nom (Bld) Auto Normal [facility] Comment on above: Order Comment: Speci men Type: BLOOD SPECIMENOrdering Facility: [facility] Address: [address] [place] [address] Performed By: #### 5 7021-8 ####[facility] [place] LABCLIA [id number] [place] [id number] [place] Eosinophils (Bld) [#/Vol] 0.16 10*3/uL Normal <0.46 [facility] Comment on above: Order Comment: Speci men Type: BLOOD SPECIMENOrdering Facility: [facility] Address: [address] [place] [address] Performed By: #### 5 7021-8 ####[facility] [place] LABCLIA [id number] [place] [address] [place] Eosinophils/100 WBC (Bld) 1.4 % Normal [facility] Comment on above: Order Comment: Speci men Type: BLOOD SPECIMENOrdering Facility: [facility] Address: [address] [place] [address] Performed By: #### 5 7021-8 ####[facility] [place] LABCLIA [id number] [facility] [place] [address] [place] Erythrocyte distribution width (RBC) [Ratio] 13.3 % Normal 11.5-15.0 [facility] Comment on above: Order Comment: Speci men Type: BLOOD SPECIMENOrdering Facility: [facility] Address: [address] [place] [address] Performed By: #### 5 7021-8 ####[facility] [place] LABCLIA [id number] [facility] [place] [address] [facility] [place] Hematocrit (Bld) [Volume fraction] 37.4 % Normal 36.0-46.0 [facility] Comment on above: Order Comment: Speci men Type: BLOOD SPECIMENOrdering Facility: [facility] Address: [address] [place] [address] Performed By: #### 5 7021-8 ####[facility] [place] LABCLIA [id number] [facility], [address] [place] Hemoglobin (Bld) [Mass/Vol] 12.3 g/dL Normal 11.5-15.5 [facility] Comment on above: Order Comment: Speci men Type: BLOOD SPECIMENOrdering Facility: [facility] Address: [address] [place] [address] Performed By: #### 5 7021-8 ####[facility] [place] LABCLIA [id number] [place] [address] [place] Lymphocytes (Bld) [#/Vol] 2.75 10*3/uL Normal 1.00-4.00 [facility] Comment on above: Order Comment: Speci men Type: BLOOD SPECIMENOrdering Facility: [facility] Address: [address] [place] [address] Performed By: #### 5 7021-8 ####[facility] [place] LABCLIA [id number] [facility] [place] Lymphocytes/100 WBC (Bld) 23.3 % Normal [facility] Comment on above: Order Comment: Speci men Type: BLOOD SPECIMENOrdering Facility: [facility] Address: [address] [place] [address] Performed By: #### 5 7021-8 ####[facility] [facility] LABCLIA [id number] [address] MCH (RBC) [Entitic mass] 27.8 pg Normal 26.0-34.0 [facility] Comment on above: Order Comment: Speci men Type: BLOOD SPECIMENOrdering Facility: [facility] Address: [address] [place] [address] Performed By: #### 5 7021-8 ####[facility] LABCLIA [id number] [address] MCHC (RBC) [Mass/Vol] 32.9 g/dL Normal 30.5-36.0 [facility] Comment on above: Order Comment: Speci men Type: BLOOD SPECIMENOrdering Facility: [facility] Address: [address] [place] [address] Performed By: #### 5 7021-8 ####[facility] LABCLIA [id number] [address] MCV (RBC) [Entitic vol] 84.4 fL Normal 80.0-100.0 [facility] Comment on above: Order Comment: Speci men Type: BLOOD SPECIMENOrdering Facility: [facility] Address: [address] [place] [address] Performed By: #### 5 7021-8 ####[facility] [place] LABCLIA [id number] [address] Monocytes (Bld) [#/Vol] 0.71 10*3/uL Normal <0.87 [facility] Comment on above: Order Comment: Speci men Type: BLOOD SPECIMENOrdering Facility: [facility] Address: [address] [place] [address] Performed By: #### 5 7021-8 ####[facility] [place] LABCLIA [id number] [place] [address] [place] Monocytes/100 WBC (Bld) 6.0 % Normal [facility] Comment on above: Order Comment: Speci men Type: BLOOD SPECIMENOrdering Facility: [facility] Address: [address] [place] [address] Performed By: #### 5 7021-8 ####[facility] [place] LABCLIA [id number] [place] [address] [place] Neutrophils (Bld) [#/Vol] 8.13 10*3/uL High 1.45-7.50 [facility] Comment on above: Order Comment: Speci men Type: BLOOD SPECIMENOrdering Facility: [facility] Address: [address] [place] [address] Performed By: #### 5 7021-8 ####[facility] [place] LABCLIA [id number] [place] [address] [place] Neutrophils/100 WBC (Bld) 69.0 % Normal [facility] Comment on above: Order Comment: Speci men Type: BLOOD SPECIMENOrdering Facility: [facility] Address: [address] [place] [address] Performed By: #### 5 7021-8 ####[facility] [place] LABCLIA [id number] [place] [address] [place] Platelet mean volume (Bld) [Entitic vol] 9.4 fL Normal 9.0-12.7 [facility] Comment on above: Order Comment: Speci men Type: BLOOD SPECIMENOrdering Facility: [facility] Address: [address] [place] [address] Performed By: #### 5 7021-8 ####[facility] [place] LABCLIA [id number] [place] [address] [place] Platelets (Bld) [#/Vol] 332 10*3/uL Normal 150-400 [facility] Comment on above: Order Comment: Speci men Type: BLOOD SPECIMENOrdering Facility: [facility] Address: [address] [place] [address] Performed By: #### 5 7021-8 ####[facility] LABIA [id number] [place] [id number] [facility] RBC (Bld) [#/Vol] 4.43 10*6/uL Normal 3.90-5.20 [facility] Comment on above: Order Comment: Speci men Type: BLOOD SPECIMENOrdering Facility: [facility] Address: [address] [place] [address] Performed By: #### 5 7021-8 ####[facility] LABIA [id number] [place] [id number] [facility] WBC (Bld) [#/Vol] 11.78 10*3/uL High 3.70-11.00 [facility] Comment on above: Order Comment: Speci men Type: BLOOD SPECIMENOrdering Facility: [facility] Address: [address] [place] [address] Performed By: #### 5 7021-8 ####[facility] LABIA [id number] [address] Cardiolipin IgA Ser IA-aCnco n 12-31-2021 Cardiolipin IgA IA Qn (S) <9.0 Normal <12.0 [facility] Comment on above: Order Comment: Speci men Type: BLOOD SPECIMENOrdering Facility: [facility] Address: [address] [place] [address] Result Comment: <12 APL Negative 12-20 APL Indeterminate >20 APL Positive The following results were obtained with the [employer] QUANTA Lite VAL[place] IgA III MAGDALENO. Cardiolipin IgA values obtained with the different manufacturers' assay methods may not be used interchangeably. The magnitude of the reported IgA levels cannot be correlated to an endpoint titer. Performed By: #### 5 076-5SHANNON CARDIG ####[facility] LABCLIA [id number] [facility] [id number] Centromere Ab IF Ql (S)on Centromere Ab Qn (S) <0.2 Normal <1.0 [facility] Comment on above: Order Comment: Speci men Type: BLOOD SPECIMEN Ordering Facility: [facility] Address: [address] [place] [address] Result Comment: Anti -centromere antibody is used as in aid in diagnosis of systemic sclerosis. Clinical correlation is required. Test Methodology: Multiplex flow immunoassay. Performed By: #### 5 1775-5, 88680-6, 62992-6, 87343-1, 22785-1, 89099-6 #### [facility] CLIA [id number] [address] [place] [address] CENTROMERE AB QUAL Negative Normal Negative [facility] Comment on above: Order Comment: Speci luz marina Type: BLOOD SPECIMEN Ordering Facility: [facility] Address: [address] [place] [address] Performed By: #### 5 1775-5, 23096-6, 55615-3, 49582-0, 61214-5, 59635-1 #### [facility] CLIA [id number] [address] [place] [address] [place] Chromatin Ab Qnon 12-31-2021 CHROMATIN AB QUAL Negative Normal Negative [facility] Comment on above: Order Comment: Speci men Type: BLOOD SPECIMEN Ordering Facility: [facility] Address: [address] [place] [address] Performed By: #### 5 1775-5, 83347-9, 43378-6, 31473-1, 20566-0, 24405-5 #### [facility] CLIA [id number] [address] [place] [address] [place] Chromatin Ab SerPl-aCncon Chromatin Ab Qn <0.2 Normal <1.0 [facility] Comment on above: Order Comment: Speci men Type: BLOOD SPECIMEN Ordering Facility: [facility] Address: [address] [place] [address] Result Comment: Test Methodology: Multiplex flow immunoassay. Performed By: #### 5 1775-5, 56661-6, 70983-4, 54207-3, 71262-2, 74443-6 #### [facility] CLIA [id number] [facility] [id number] OF [facility] Comprehensive metabolic 2000 panelon 12-31-2021 Albumin [Mass/Vol] 3.9 g/dL Normal 3.9-4.9 [facility] Comment on above: Order Comment: Speci men Type: BLOOD SPECIMENOrdering Facility: [facility] Address: [address] [place] [address] Performed By: #### 2 4323-8, 3016-3 ####[facility] LABCLIA [id number] [place] [address] [place] ALP [Catalytic activity/Vol] 70 U/L Normal 34-123 [facility] Comment on above: Order Comment: Speci men Type: BLOOD SPECIMENOrdering Facility: [facility] Address: [address] [place] [address] Performed By: #### 2 4323-8, 3016-3 ####[facility] LABCLIA [id number] [place] [address] [place] ALT With P-5'-P [Catalytic activity/Vol] 8 U/L Normal 7-38 [facility] Comment on above: Order Comment: Speci men Type: BLOOD SPECIMENOrdering Facility: [facility] Address: [address] [place], [place] [address] Performed By: #### 2 4323-8, 3016-3 ####[facility] [place] LABCLIA [id number] [place] [address] [place] Anion gap [Moles/Vol] 12 mmol/L Normal 9-18 [facility] Comment on above: Order Comment: Speci men Type: BLOOD SPECIMENOrdering Facility: [facility] Address: [address] Performed By: #### 2 4323-8, 3016-3 ####[facility] [place] LABCLIA [id number] [place] [address] [place] AST With P-5'-P [Catalytic activity/Vol] 11 U/L Low 13-35 [facility] Comment on above: Order Comment: Speci men Type: BLOOD SPECIMENOrdering Facility: [facility] Address: [address] [place] [address] Performed By: #### 2 4323-8, 3016-3 ####[facility] [place] LABCLIA [id number] [place] [address] [place] Bilirubin [Mass/Vol] 0.2 mg/dL Normal 0.2-1.3 [facility] Comment on above: Order Comment: Speci men Type: BLOOD SPECIMENOrdering Facility: [facility] Address: [address] [place] [address] Performed By: #### 2 4323-8, 3016-3 ####[facility] [place] LABCLIA [id number] [place] [address] [place] [place] Calcium [Mass/Vol] 9.4 mg/dL Normal 8.5-10.2 [facility] Comment on above: Order Comment: Speci men Type: BLOOD SPECIMENOrdering Facility: [facility] Address: [address] [place], [place] [address] Performed By: #### 2 4323-8, 3016-3 ####[facility] LABCLIA [id number] [place] [address] [place] Chloride [Moles/Vol] 101 mmol/L Normal 97-105 [facility] Comment on above: Order Comment: Speci men Type: BLOOD SPECIMENOrdering Facility: [facility] Address: [address] [place], [place] [address] Performed By: #### 2 4323-8, 3016-3 ####[facility] LABCLIA [id number] [place] [address] [place] CO2 [Moles/Vol] 24 mmol/L Normal 22-30 [facility] Comment on above: Order Comment: Speci men Type: BLOOD SPECIMENOrdering Facility: [facility] Address: [address] [place] [address] Performed By: #### 2 4323-8, 3016-3 ####[facility] LABCLIA [id number] [place] [address] [place] [facility] Creatinine [Mass/Vol] 0.54 mg/dL Low 0.58-0.96 [facility] Comment on above: Order Comment: Speci men Type: BLOOD SPECIMENOrdering Facility: [facility] Address: [address] [place] [address] Performed By: #### 2 4323-8, 3016-3 ####[facility] LABCLIA [id number] [place] [id number] [facility] ESTIMATED GLOMERULAR FILTRATION RATE 135 mL/min/1.73m??? Normal >=60 [facility] Comment on above: Order Comment: Speci men Type: BLOOD SPECIMENOrdering Facility: [facility] Address: [address] [place] [address] Result Comment: Marbella mated Glomerular Filtration Rate (eGFR) is calculated using the 2020 CKD-EPI creatinine equation. This equation utilizes serum creatinine, sex, and age as parameters. The creatinine assay has traceable calibration to isotope dilution-mass spectrometry. Refer to KDIGO guidelines for clinical interpretation. In patients with unstable renal function, e.g. those with acute kidney injury, the eGFR may not accurately reflect actual GFR. Performed By: #### 2 4323-8, 3016-3 ####[facility] LABCLIA [id number] [place] [address] [place] Glucose [Mass/Vol] 94 mg/dL Normal 74-99 [facility] Comment on above: Order Comment: Speci men Type: BLOOD SPECIMENOrdering Facility: [facility] Address: [address] [place] [address] Result Comment: The [place] Diabetes Association (ADA) provides guidance for cutoff values for fasting glucose and random glucose. The ADA defines fasting as no caloric intake for at least 8 hours. Fasting plasma glucose results between 100 to 125 mg/dL indicate increased risk for diabetes (prediabetes). Fasting plasma glucose results greater than or equal to 126 mg/dL meet the criteria for diagnosis of diabetes. In the absence of unequivocal hyperglycemia, results should be confirmed by repeat testing. In a patient with classic symptoms of hyperglycemia or hyperglycemic crisis, random plasma glucose results greater than or equal to 200 mg/dL meet the criteria for diagnosis of diabetes. Reference: Standards of Medical Care in Diabetes 2016, [place] [employer] Association. Diabetes Care. 2016.39(Suppl 1). Performed By: #### 2 4323-8, 6-3 ####[facility] LABCLIA [id number] [place] [address] [place] Potassium [Moles/Vol] 3.2 mmol/L Low 3.7-5.1 [facility] Comment on above: Order Comment: Cheryl raza Type: BLOOD SPECIMENOrdering Facility: [facility] Address: [address] Performed By: #### 2 4323-8, 3015-3 ####[facility] LABCLIA [id number] [place] [address] [place] Protein [Mass/Vol] 6.7 g/dL Normal 6.3-8.0 [facility] Comment on above: Order Comment: Cheryl raza Type: BLOOD SPECIMENOrdering Facility: [facility] Address: [address] Performed By: #### 2 4323-8, 6-3 ####[facility] LABCLIA [id number] [place] [address] [place] Sodium [Moles/Vol] 137 mmol/L Normal 136-144 [facility] Comment on above: Order Comment: Cheryl raza Type: BLOOD SPECIMENOrdering Facility: [facility] Address: [address] Performed By: #### 2 4323-8, 3016-3 ####[facility] LABCLIA [id number] [place] [address] [place] Urea nitrogen [Mass/Vol] 5 mg/dL Low 7-21 [facility] Comment on above: Order Comment: Speci men Type: BLOOD SPECIMENOrdering Facility: [facility] Address: [address] [place] [address] Performed By: #### 2 4323-8, 3016-3 ####[facility] LABCLIA [id number] [place] [address] [place] DNA ANTIBODY DS BLDon 2021 DNA ANTIBODY <12 Normal <30 [facility] Comment on above: Order Comment: Speci men Type: BLOOD SPECIMENOrdering Facility: [facility] Address: [address] [place] [address] Result Comment: Nega tive for ds DNA Anitbodies. <30 IU/mL Negative 30-74 IU/mL Equivocal >74 IU/mL Positive Performed By: #### B ETA2M, BETA2G, DNAAB ####[facility] LABCLIA [id number] [address] [place] Jo1 Ab Ser-aCncon 2021 Apple-1 extractable nuclear Ab Qn (S) <0.2 Normal <1.0 [facility] Comment on above: Order Comment: Speci men Type: BLOOD SPECIMENOrdering Facility: [facility] Address: [address] [place] [address] Performed By: #### 5 1775-5, 82101-6, 65003-1, 81859-2, 83607-1, 79371-9 ####[facility] LABCLIA [id number] [address] OF [place] MACHINE BASTER Ab Ser-aCncon 2021 Ribonucleoprotein extractable nuclear Ab Qn (S) <0.2 Normal <1.0 [facility] Comment on above: Order Comment: Speci men Type: BLOOD SPECIMEN Ordering Facility: [facility] Address: [address] [place] [address] Performed By: #### 5 1775-5, 10516-8, 49902-2, 89267-7, 02454-5, 15039-4 #### [facility] CLIA [id number] [address] [place] [address] Order Comment: Speci men Type: BLOOD SPECIMENOrdering Facility: [facility] Address: [address] [place] [address] Performed By: #### 5 1775-5, 54101-5, 61704-7, 43262-7, 59456-2, 79050-1 ####[facility] LABCLIA [id number] [address] [place] SM IgG Ser-aCncon 2021 Cheng extractable nuclear IgG Qn (S) <0.2 Normal <1.0 [facility] Comment on above: Order Comment: Speci men Type: BLOOD SPECIMEN Ordering Facility: [facility] Address: [address] [place] [address] Performed By: #### 5 1775-5, 98113-4, 40665-9, 79067-9, 79127-4, 56480-7 #### [facility] CLIA [id number] [address] [place] [address] [place] SS-A Ab Ser-aCncon 12-31 Sjogrens syndrome-A extractable nuclear Ab Qn (S) <0.2 Normal <1.0 [facility] Comment on above: Order Comment: Speci men Type: BLOOD SPECIMENOrdering Facility: [facility] Address: [address] [place] [address] Result Comment: Test Methodology: Multiplex flow immunoassay. Performed By: #### 1 7791-5, 69874-0 ####[facility] LABCLIA [id number] [place] [address] [place]A SS-B Ab Ser-aCncon 12-31 Sjogrens syndrome-B extractable nuclear Ab Qn (S) <0.2 Normal <1.0 [facility] Comment on above: Order Comment: Speci men Type: BLOOD SPECIMENOrdering Facility: [facility] Address: [address] [place] [address] Result Comment: Anti -SSB (anti-La) antibody is used as an aid in diagnosis of a variety of systemic autoimmune diseases, especially for Sjogren's syndrome and systemic lupus erythematosus. Clinical correlation is required. Test Methodology: Multiplex flow immunoassay. Performed By: #### 1 7791-5, 05286-5 ####[facility] [id number] [address] [place] Apple-1 extractable nuclear Ab Qn (S)on 12-31-2021 APPLE 1 ANTIBODY QUAL Negative Normal Negative [facility] Comment on above: Order Comment: Speci men Type: BLOOD SPECIMENOrdering Facility: [facility] Address: [address] [place] [address] Result Comment: Anti -APPLE-1 antibody is used as an aid in diagnosis of polymyositis and dermatomyositis especially with pulmonary involvement. A negative result cannot rule out polymyositis or dermatomyositis. Clinical correlation is required. Test Methodology: Multiplex flow immunoassay. Performed By: #### 5 1775-5, 75908-3, 29768-9, 63414-4, 38593-9, 41863-3 ####[facility] LABIA [id number] [place] [address] [place] Ribonucleoprotein extractabl e nuclear Ab Qn (S)on 12-31-2021 ANTI-MACHINE BASTER QUAL Negative Normal Negative [facility] Comment on above: Order Comment: Speci men Type: BLOOD SPECIMENOrdering Facility: [facility] Address: [address] [place] [address] Performed By: #### 5 1775-5, 09466-6, 74511-2, 17759-6, 41379-8, 65230-3 ####[facility] LABCLIA [id number] [address] STATES OF [place] RIBOSOMAL MACHINE BASTER QUAL Negative Normal Negative [facility] Comment on above: Order Comment: Cheryl raza Type: BLOOD SPECIMEN Ordering Facility: [facility] Address: [address] [place] [address] Result Comment: Anti -Ribosomal RNA (Ribosomal P) antibody is used as an aid in diagnosis of systemic autoimmune diseases especially systemic lupus erythematosus and mixed connective tissue disease. Cross-reactivity with Anti-cheng antibody is not uncommon. Clinical correlation is required. Test Methodology: Multiplex flow immunoassay. Performed By: #### 5 1775-5, 42015-3, 95233-4, 69835-3, 90433-9, 36543-1 #### [facility] CLIA [id number] [address] [place] [address] [place] SCL-70 extractable nuclear I gG IA Qn (S)on 12-31-2021 SCLERODERMA AB QUAL Negative Normal Negative [facility] Comment on above: Order Comment: Cheryl raza Type: BLOOD SPECIMEN Ordering Facility: [facility] Address: [address] [place] [address] Performed By: #### 5 1775-5, 71678-9, 43732-4, 01011-6, 15852-2, 65358-3 #### [facility] CLIA [id number] [address] [place] [address] [place] SCLERODERMA IGG AB <0.2 Normal <1.0 [facility] Comment on above: Order Comment: Cheryl raza Type: BLOOD SPECIMEN Ordering Facility: [facility] Address: [address] [place] [address] Result Comment: Scl- 70/Scleroderma antibody test is used as an aid in diagnosis of systemic sclerosis especially the diffuse cutaneous form. A negative result cannot rule out systemic sclerosis. The final interpretation should consider clinical picture and other test results such as anti-centromere antibody. Test Methodology: Multiplex flow immunoassay. Performed By: #### 5 1775-5, 71613-5, 39483-2, 65246-0, 27796-6, 88145-9 #### [facility] CLIA [id number] [place] [address] [place] Sjogrens syndrome-A extracta ble nuclear Ab Qn (S)on 12-31-2021 SSA ANTIBODY QUAL Negative Normal Negative [facility] Comment on above: Order Comment: Speci men Type: BLOOD SPECIMENOrdering Facility: [facility] Address: [address] [place] [address] Performed By: #### 1 7791-5, 28733-1 ####[facility] LABCLIA [id number] [address] OF [place] Sjogrens syndrome-B extracta ble nuclear Ab Qn (S)on 12-31-2021 SSB ANTIBODY QUAL Negative Normal Negative [facility] Comment on above: Order Comment: Speci men Type: BLOOD SPECIMENOrdering Facility: [facility] Address: [address] [place] [address] Performed By: #### 1 7791-5, 41342-1 ####[facility] LABCLIA [id number] [address] Cheng extractable nuclear Ig G Qn (S)on 12-31-2021 SM ANTIBODY QUAL Negative Normal Negative [facility] Comment on above: Order Comment: Speci men Type: BLOOD SPECIMEN Ordering Facility: [facility] Address: [address] [place] [address] Result Comment: Anti -Sm (Cheng) antibody is used as an aid in diagnosis of systemic lupus erythematosus and its presence is associated with renal disease. A negative result cannot rule out systemic lupus erythematosus. Clinical correlation is required. Test Methodology: Multiplex flow immunoassay. Performed By: #### 5 1775-5, 88025-9, 11241-0, 73352-9, 23485-1, 40218-2 #### [facility] CLIA [id number] [address] [facility] [id number] [id number] [facility] OF [place] THYROID PEROXIDASE ANTIBODY BLOODon 12-31-2021 TPO Ab Qn [IU]/mL Normal 0.0-60.0 [facility] Comment on above: Order Comment: Speci men Type: BLOOD SPECIMENOrdering Facility: [facility] Address: [address] [place] [address] Result Comment: Thyr oid Peroxidase Antibody test is used as an aid in diagnosis of autoimmune thyroid disease. Clinical correlation is required. Performed By: #### M ICRO ####[facility] LABORATORYCLIA [id number] [address] [place] TSH SerPl-aCncon 12-31-2021 TSH Qn 2.190 m[IU]/L Normal 0.510-4.300 [facility] Comment on above: Order Comment: Spechenry raza Type: BLOOD SPECIMENOrdering Facility: [facility] Address: [address] [place] [address] Result Comment: If t he patient is , TSH reference range varies by gestational period: First Trimester (weeks 9-12): 0.180-2.990 mIU/L Second Trimester: 0.110-3.980 mIU/L Third Trimester: 0.480-4.710 mIU/L Cornelio Mcintosh et al. A Practical Approach for the Verifications and Determination of Site- and Trimester-Specific Reference Intervals for Thyroid Function tests in . Thyroid, 2019:29:3:412-420. Dorian Jones, et al. 2017 Guidelines of the [place] Thyroid Association for the Diagnosis and Management of Thyroid Disease during and the . Thyroid, 2017:27:3:315-389. Performed By: #### 2 4323-8, 3016-3 ####[facility] LABCLIA [id number] [address] [place] Urinalysis complete panel (U )on 12-31-2021 Bilirubin Ql (U) Negative Normal Negative [facility] Comment on above: Order Comment: Speci men Type: URINE SPECIMEN Ordering [facility]: [facility] Address: [address] [place] [address] Performed By: #### 2 4356-8 #### [facility] CLIA [id number] [address] [place] [address] [facility] Clarity (Unsp spec) Cloudy Abnormal Clear [facility] Comment on above: Order Comment: Speci men Type: URINE SPECIMEN Ordering Facility: [facility] Address: [address] [place] [address] Performed By: #### 2 4356-8 #### [facility] CLIA [id number] [address] Color (U) Yellow Normal Yellow [facility] Comment on above: Order Comment: Speci men Type: URINE SPECIMEN Ordering Facility: [facility] Address: [address] [place] [address] Performed By: #### 2 4356-8 #### [facility] CLIA [id number] [address] Epithelial cells LM.HPF (Urine sed) [#/Area] Few Normal [facility] Comment on above: Order Comment: Speci men Type: URINE SPECIMEN Ordering Facility: [facility] Address: [address] [place] [address] Performed By: #### 2 4356-8 #### [facility] CLIA [id number] [address] [place] [id number] [facility] OF [place] Glucose Test strip (U) [Mass/Vol] Negative Normal Negative [facility] Comment on above: Order Comment: Speci men Type: URINE SPECIMEN Ordering Facility: [facility] Address: [address] [place] [address] Performed By: #### 2 4356-8 #### [facility] CLIA [id number] [address] [place] [address] [facility] OF [place] Granular casts (Urine sed) [#/Area] 1-3 /LPF Abnormal 0 /LPF [facility] Comment on above: Order Comment: Speci men Type: URINE SPECIMEN Ordering Facility: [facility] Address: [address] [place] [address] Performed By: #### 2 4356-8 #### [facility] CLIA [id number] [address] [place] [address] [place] Hemoglobin Ql (U) Negative Normal Negative [facility] Comment on above: Order Comment: Speci men Type: URINE SPECIMEN Ordering Facility: [facility] Address: [address] [place] [address] Performed By: #### 2 4356-8 #### [facility] CLIA [id number] [address] [place] Ketones Ql (U) Negative Normal Negative [facility] Comment on above: Order Comment: Speci men Type: URINE SPECIMEN Ordering Facility: [facility] Address: [address] [place] [address] Performed By: #### 2 4356-8 #### [facility] CLIA [id number] [address] [place] Leukocyte esterase Test strip Ql (U) Negative Normal Negative [facility] Comment on above: Order Comment: Speci men Type: URINE SPECIMEN Ordering Facility: [facility] Address: [address] [place] [address] Performed By: #### 2 4356-8 #### [facility] CLIA [id number] [address] [place] [address] [place] Nitrite Ql (U) Negative Normal Negative [facility] Comment on above: Order Comment: Speci men Type: URINE SPECIMEN Ordering Facility: [facility] Address: [address] [place] [address] Performed By: #### 2 4356-8 #### [facility] CLIA [id number] [address] [place] [address] [place] pH (U) 7.0 [pH] Normal 5.0-8.0 [facility] Comment on above: Order Comment: Speci men Type: URINE SPECIMEN Ordering Facility: [facility] Address: [address] [place] [address] Performed By: #### 2 4356-8 #### [facility] CLIA [id number] [address] Protein (U) [Mass/Vol] Negative Normal Negative [facility] Comment on above: Order Comment: Speci men Type: URINE SPECIMEN Ordering Facility: [facility] Address: [address] [place] [address] Performed By: #### 2 4356-8 #### [facility] CLIA [id number] [address] [place] [address] [place] RBC LM.HPF (Urine sed) [#/Area] 0-3 /HPF Normal 0-3 /HPF [facility] Comment on above: Order Comment: Speci men Type: URINE SPECIMEN Ordering Facility: [facility] Address: [address] [place] [address] Performed By: #### 2 4356-8 #### [facility] CLIA [id number] [address] [place] [address] [place] Specific gravity (U) [Rel density] 1.020 Normal 1.005-1.030 [facility] Comment on above: Order Comment: Speci men Type: URINE SPECIMEN Ordering Facility: [facility] Address: [address] [place] [address] Performed By: #### 2 4356-8 #### [facility] CLIA [id number] [address] [place] [id number] [facility] Urobilinogen Ql (U) 0.2 EU/dL Normal 0.2-1.0 EU/dL [facility] Comment on above: Order Comment: Speci men Type: URINE SPECIMEN Ordering Facility: [facility] Address: [address] [place] [address] Performed By: #### 2 4356-8 #### [facility] CLIA [id number] [address] [place] [address] [facility] [place] WBC LM.HPF (Urine sed) [#/Area] 0-5 /HPF Normal 0-5 /HPF [facility] Comment on above: Order Comment: Speci men Type: URINE SPECIMEN Ordering Facility: [facility] Address: [address] [place], [place] [address] [address] Performed By: #### 2 4356-8 #### [facility] CLIA [id number] [address] [place] [address] [facility] Progress Noteon 12-30-2021 [employer] Authentication Interface Message Text [facility] MATERNAL- MEDICINE CONSULT Referring/Requesting Provider: CHUCHO Frye PCP: Gabriella Cassidy MD INDICATION FOR CONSULT: + JESUS HISTORY OF PRESENT ILLNESS: Patient is a 21 y.o. at 19w5d who presents for consultation regarding history of a positive JESUS. She reports symptoms of dry eyes (uses eyedrops a lot) and dry mouth, especially in the morning. She has not been diagnosed with a specific autoimmune disorder. She was told she does not have lupus. She reports she intermittently feels, weak, lethargic and has visual changes, but this resolves with eating sugar-containing foods like berries or candy. She wonders if she could have low blood sugar. OB History Para Term AB Living 1 SAB IAB Ectopic Multiple Live Births # Outcome Date GA Lbr Ronald/2nd Weight Sex Delivery Anes PTL Lv 1 Current Past Medical History: Diagnosis Date JESUS positive Anxiety Depression Transaminitis elevated liver enzymes in 2019 Uncomplicated asthma History reviewed. No pertinent surgical history. PERTINENT FAMILY HISTORY: Family History Problem Relation Age of Onset Mental Illness Mother depression, admitted to [facility] when i was younger Anxiety Disorder Mother Kidney Disease Father kidney failure Brain Tumor Father on pituitary gland Thyroid Disease Sister Alzheimer's Disease Maternal Grandmother Dementia Maternal Grandmother Macular Degen Maternal Grandmother High Blood Pressure Maternal Grandfather Heart Disease Maternal Grandfather Mental Illness Paternal Grandmother depression Anxiety Disorder Paternal Grandmother COPD Paternal Grandmother Kidney Disease Paternal Grandmother kidney failure Obesity Paternal Grandmother bariatric surgery Clotting Disorder Paternal Grandfather blood clots in legs Heart Disease Paternal Grandfather of heart attack High Blood Pressure Paternal Grandfather Diabetes Mellitus II Paternal Grandfather Obesity Paternal Aunt bariatric surgery Obesity Paternal Uncle bariatric surgery Clotting Disorder Paternal Uncle blood clots in leg MEDS: Outpatient Medications Marked as Taking for the 12/30/21 encounter (Office Visit) with Leni Ocampo, Medication Sig Dispense Refill Doxylamine Succinate, Sleep, 25 MG TABS Take 25 mg by mouth nightly at bedtime MV & Min w/FA-DHA ( ADULT GUMMY/DHA/FA) 0.4-25 MG CHEW Take 2 Each by mouth daily pyridoxine (B-6) 25 MG tablet Take 25 mg by mouth 3 times daily omega-3 fatty acids 1000 MG CAPS capsule Take by mouth ALLERGY: No Known Allergies REVIEW OF SYSTEMS: Review of Systems All other systems reviewed and are negative. PHYSICAL EXAM: VITAL SIGNS: BP 118/83 Ht 170.2 cm Wt (!) 98.3 kg (216 lb 11.2 oz) LMP 08/14/2021 BMI 33.94 kg/m Physical Exam Vitals reviewed. Constitutional: General: She is active. HENT: Head: Atraumatic. Eyes: Conjunctiva/sclera: Conjunctivae normal. Pulmonary: Effort: Pulmonary effort is normal. Neurological: Mental Status: She is alert. IMAGING: See report LABS: No visits with results within 1 Week(s) from this visit. Latest known visit with results is: No results found for any previous visit. IMPRESSION AND RECOMMENDATIONS: Michael is a 21 y.o. at 19w5d with Active Non-Hospital Problems Diagnosis Date Noted Anxiety 12/30/2021 Depression 12/30/2021 Supervision of other high risk pregnancies, second trimester 12/30/2021 - Horizon Negative, panorama low risk. 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 Per patient report she was told she does not have lupus. She had a recent telehealth with Rheumatology and has labs ordered but she has not completed them. - Recommend checking SS-A and SS-B antibodies as well. We reviewed potential risk of heart block if SSA or SSB are positive. Family history of congenital heart defect - FOB And FOB's brother born with holes in heart, both closed on their own. - echo planned with MFM Kidney stone on right side 11/29/2021 No current problems Anxiety disorder affecting , antepartum 11/15/2021 11/15/21: Not on medication. Stable Autoimmune disorder 11/15/2021 11/15/21: + JESUS. Per patient diagnosed with unknown autoimmune disorder. Saw rheumatology [facility] in January 2020 but didn't f/u d/t covid pandemic. - Continue work-up as ordered by rheumatology COVID-19 affecting , antepartum 11/01/2021 - Covid 10/15/21, mild Elevated liver enzymes 10/10/2019 - occurred during illness with covid, repeat LFTs were normal Pattern BG when symptomatic. Keep food log and record BG and symptoms on her log. If BG pattern normal and does not account for her s (more content not included)... Normal [facility] Glucose Challenge,1Hron 11-16 Glucose [Mass/Vol] 99 mg/dL Normal <140 [facility] Comment on above: Performed By: #### A RAMIRO NEVILLE #### [facility] Glucose tolerance, 1 houron 12-03-2021 Glucose [Mass/Vol] 99 mg/dL <140 [facility] Test Performed by [facility], [address] [place] [address] Rd. , [address] [facility] Hemoglobin Evaluationon 10-20 Erythrocyte Cnt 4.79 Mill/uL Normal 3.80-5.10 [facility] Comment on above: Performed By: #### RAMIRO PRASAD #### [facility] Hemoglobin A 97.8 % Normal >96.0 [facility] Comment on above: Performed By: #### RAMIRO PRASAD #### [facility] Hemoglobin A2 2.2 % Normal 2.2-3.2 [facility] Comment on above: Performed By: #### RAMIRO PRASAD #### [facility] Hemoglobin F 0.0 % Normal <2.0 [facility] Comment on above: Performed By: #### RAMIRO PRASAD #### [facility] Interpretation see below Normal [facility] Comment on above: Result Comment: NORM AL PATTERN There is a normal pattern of hemoglobins and normal levels of HbA2 and HbF are present. No variant hemoglobins are observed. This is consistent with A/A phenotype. If iron deficiency coexists with beta thalassemia trait HbA2 may be in the normal range. Rare variant hemoglobins have no separation from hemoglobin A by capillary zone electrophoresis or high-performance liquid chromatography. If clinically indicated, Thalassemia and Hemoglobinopathy Comprehensive is available (Test code 31194). Test Performed by [facility], [address] [place] [address] Salbador Narayan M.D., Ph.D., Director of Laboratories , CLIA [id number] Performed By: #### A RAMIRO NEVILLE #### [facility] [place] MCH 28.4 pg Normal 27.0-33.0 [facility] Comment on above: Performed By: #### RAMIRO PRASAD #### [facility] MCV 84.8 fL Normal 80.0-100.0 [facility] Comment on above: Performed By: #### RAMIRO PRASAD #### [facility] RDW 14.1 % Normal 11.0-15.0 [facility] Comment on above: Result Comment: Test Performed by [facility], [address] [place], [place] Salbador Narayan M.D., Ph.D., Director of Laboratories , CLIA [id number] Performed By: #### A JAMIN ABSGL #### [facility] [place] HIV Ag - Abon 11-05-2021 HIV 1,2 Combo Antigen/Antibody Non-Reactive Normal Non-Reactive [facility] Comment on above: Result Comment: The specimen was non-reactive for HIV-1 and HIV-2 antibodies and p24 antigen using an FDA-cleared 4th generation HIV test. Based on this non-reactive screen result, further reflexive testing was not indicated and was, therefore, not performed. Performed By: #### A JAMIN ABSGL #### [facility] Rapid Plasma Reagin (RPR) W Reflex Quanton 11-05-2021 Rapid Plasma Reagin (RPR) Qual Non-Reactive Normal [facility] Comment on above: Result Comment: Non- Reactive Performed By: #### RAMIRO PRASAD #### [facility] ABO Rh Blood Typeon 11-04-19 ABO and Rh group Nom (Bld) ABO Group: A Rh, Gel: POS Normal [facility] Comment on above: Performed By: #### A MARY ABORH #### [facility] Antibody Screen Gelon 2021 Antibody Screen Gel Antibody Screen Gel: NEG Normal [facility] Comment on above: Performed By: #### A SUKUMAR HERNANDEZH #### [facility] Comp Metabolic Panelon 11-04 Calcium [Mass/Vol] 9.6 mg/dL Normal 8.4-10.4 [facility] Comment on above: Performed By: #### RAMIRO PRASAD #### [facility] ALP [Catalytic activity/Vol] 58 U/L Normal 38-126 [facility] Comment on above: Performed By: #### RAMIRO PRASAD #### [facility] ALT [Catalytic activity/Vol] 25 U/L Normal 0-34 [facility] Comment on above: Result Comment: The ALT test is performed by an updated assay method. Please note that the reference intervals have been changed and are now sex specific. Performed By: #### RAMIRO PRASAD #### [facility] Anion gap [Moles/Vol] 10 mmol/L Normal 3-13 [facility] Comment on above: Performed By: #### RAMIRO PRASAD #### [facility] AST [Catalytic activity/Vol] 35 U/L Normal 15-46 [facility] Comment on above: Performed By: #### RAMIRO PRASAD #### [facility] Bilirubin [Mass/Vol] 0.6 mg/dL Normal 0.2-1.3 [facility] Comment on above: Performed By: #### RAMIRO PRASAD #### [facility] CO2 [Moles/Vol] 24 mmol/L Normal 22-30 [facility] Comment on above: Performed By: #### RAMIRO PRASAD #### [facility] Creatinine [Mass/Vol] 0.57 mg/dL Normal 0.52-1.25 [facility] Comment on above: Performed By: #### RAMIRO PRASAD #### [facility] eGFR OTHER > 90.0 Normal >60 [facility] Comment on above: Result Comment: KDIG O guidelines provide the following GFR categories: Stage GFR(ml/min/1.73 m2) Terms G1 >=90 Normal or high G2 60-89 Mildly decreased* G3a 45-59 Mildly to moderately decreased G3b 30-44 Moderately to severely decreased G4 15-29 Severely decreased G5 <15 Kidney failure *Relative to young adult level. In the absence of evidence of kidney damage, neither GFR category G1 nor G2 fulfill the criteria for CKD. The CKD-EPI equation is validated in individuals 18 years of age and older. Currently the best equation for estimating glomerular filtration rate (GFR) from serum creatinine in children is the Bedside Stiles equation. It is less accurate in patients with extremes of muscle mass, restriction of dietary protein, ingestion of creatine, extra-renal metabolism of creatinine, or treatment with medications that affect renal tubular creatinine secretion. Performed By: #### RAMIRO PRASAD #### [facility] GFR/1.73 sq M.predicted among blacks MDRD (S/P/Bld) [Vol rate/Area] mL/min/{1.73_m2} Normal >60 [facility] Comment on above: Performed By: #### RAMIRO PRASAD #### [facility] Glucose [Mass/Vol] 110 mg/dL High 70-100 [facility] Comment on above: Performed By: #### RAMIRO PRASAD #### [facility] Protein [Mass/Vol] 6.9 g/dL Normal 6.3-8.2 [facility] Comment on above: Performed By: #### RAMIRO PRASAD #### [facility] Urea nitrogen [Mass/Vol] 6 mg/dL Low 9-20 [facility] Comment on above: Performed By: #### RAMIRO PRASAD #### [facility] Potassium [Moles/Vol] 3.6 mmol/L Normal 3.5-5.1 [facility] Comment on above: Performed By: #### RAMIRO PRASAD #### [facility] Albumin [Mass/Vol] 4.3 g/dL Normal 3.5-5.0 [facility] Comment on above: Performed By: #### RAMIRO PRASAD #### [facility] Chloride [Moles/Vol] 102 mmol/L Normal 98-107 [facility] Comment on above: Performed By: #### RAMIRO PRASAD #### [facility] Sodium [Moles/Vol] 136 mmol/L Normal 135-145 [facility] Comment on above: Performed By: #### RAMIRO PRASAD #### [facility] Hemogram w/ Autodiffon 11-04 Abs Baso Cnt 0.1 10*3/uL Normal 0.0-0.2 [facility] Comment on above: Performed By: #### H GBFO #### The performing lab is in the report. #### HEMDF, CMP3, TSH5 #### [facility] [address] [place] [address] #### RPRBP, HEPC, HBSAG, HVAAO #### [address] #### RUBG #### [facility] [address] [facility] [place] [address] Abs Neutrophile Cnt 6.4 10*3/uL Normal 1.8-7.0 [facility] Comment on above: Performed By: #### H GBFO #### The performing lab is in the report. #### HEMDF, CMP3, TSH5 #### [facility] [address] [place] [address] #### RPRBP, HEPC, HBSAG, HVAAO #### [address] [address] #### RUBG #### [facility] [address] [place] [address] Basophils/100 WBC (Bld) 0.6 % Normal 0.0-2.0 [facility] Comment on above: Performed By: #### H GBFO #### The performing lab is in the report. #### HEMDF, CMP3, TSH5 #### [facility] [address] [place] [address] #### RPRBP, HEPC, HBSAG, HVAAO #### [address] #### RUBG #### [facility] [address] [place] [address] Eosinophils (Bld) [#/Vol] 0.1 10*3/uL Normal 0.0-0.5 [facility] Comment on above: Performed By: #### H GBFO #### The performing lab is in the report. #### HEMDF, CMP3, TSH5 #### [address] [address] #### RPRBP, HEPC, HBSAG, HVAAO #### [address] #### RUBG #### [facility] [address] [place] [address] Eosinophils/100 WBC (Bld) 1.0 % Normal 1.0-6.0 [facility] Comment on above: Performed By: #### H GBFO #### The performing lab is in the report. #### HEMDF, CMP3, TSH5 #### [address] [address] #### RPRBP, HEPC, HBSAG, HVAAO #### [address] #### RUBG #### [facility] [address] [place] [address] Erythrocyte distribution width (RBC) [Ratio] 14.2 % Normal 11.5-14.5 [facility] Comment on above: Performed By: #### H GBFO #### The performing lab is in the report. #### HEMDF, CMP3, TSH5 #### [address] [address] #### RPRBP, HEPC, HBSAG, HVAAO #### [address] #### RUBG #### [address] [place] [address] Granulocytes/100 WBC (Bld) 70.4 % Normal 40.0-80.0 [facility] Comment on above: Performed By: #### H GBFO #### The performing lab is in the report. #### HEMDF, CMP3, TSH5 #### [address] [address] #### RPRBP, HEPC, HBSAG, HVAAO #### [address] #### RUBG #### [address] [place] [address] Hematocrit (Bld) [Volume fraction] 40.3 % Normal 35.0-47.0 [facility] Comment on above: Performed By: #### H GBFO #### The performing lab is in the report. #### HEMDF, CMP3, TSH5 #### [address] [address] #### RPRBP, HEPC, HBSAG, HVAAO #### [address] #### RUBG #### [address] [place] [address] Hemoglobin (Bld) [Mass/Vol] 13.6 g/dL Normal 11.7-16.0 [facility] Comment on above: Performed By: #### H GBFO #### The performing lab is in the report. #### HEMDF, CMP3, TSH5 #### [address] [place] [address] #### RPRBP, HEPC, HBSAG, HVAAO #### [address] #### RUBG #### [facility] [address] [place] [address] Lymphocytes (Bld) [#/Vol] 2.2 10*3/uL Normal 1.0-4.3 [facility] Comment on above: Performed By: #### H GBFO #### The performing lab is in the report. #### HEMDF, CMP3, TSH5 #### [facility] [address] [place] [address] #### RPRBP, HEPC, HBSAG, HVAAO #### [address] #### RUBG #### [place] [address] [place] [address] Lymphocytes/100 WBC (Bld) 24.4 % Normal 20.0-40.0 [facility] Comment on above: Performed By: #### H GBFO #### The performing lab is in the report. #### HEMDF, CMP3, TSH5 #### [address] [address] #### RPRBP, HEPC, HBSAG, HVAAO #### [address] #### RUBG #### [address] [place] [address] MCH (RBC) [Entitic mass] 27.6 pg Normal 26.0-34.0 [facility] Comment on above: Performed By: #### H GBFO #### The performing lab is in the report. #### HEMDF, CMP3, TSH5 #### [address] [address] #### RPRBP, HEPC, HBSAG, HVAAO #### [address] #### RUBG #### [place] [address] [place] [address] MCHC 33.6 % Normal 32.0-36.0 [facility] Comment on above: Performed By: #### H GBFO #### The performing lab is in the report. #### HEMDF, CMP3, TSH5 #### [facility] [address] [place] [address] #### RPRBP, HEPC, HBSAG, HVAAO #### [address] #### RUBG #### [facility] [address] [place] [address] MCV (RBC) [Entitic vol] 82.0 fL Normal 79.0-98.0 [facility] Comment on above: Performed By: #### H GBFO #### The performing lab is in the report. #### HEMDF, CMP3, TSH5 #### [place] [address] #### RPRBP, HEPC, HBSAG, HVAAO #### [address] #### RUBG #### [address] [place] [address] Monocytes (Bld) [#/Vol] 0.3 10*3/uL Normal 0.0-0.8 [facility] Comment on above: Performed By: #### H GBFO #### The performing lab is in the report. #### HEMDF, CMP3, TSH5 #### [place] [address] #### RPRBP, HEPC, HBSAG, HVAAO #### [address] #### RUBG #### [address] [place] [address] Monocytes/100 WBC (Bld) 3.6 % Normal 2.0-10.0 [facility] Comment on above: Performed By: #### H GBFO #### The performing lab is in the report. #### HEMDF, CMP3, TSH5 #### [facility] [address] [place] [address] #### RPRBP, HEPC, HBSAG, HVAAO #### [address] #### RUBG #### [facility] [address] [place] [address] Platelet mean volume (Bld) [Entitic vol] 7.1 fL Low 7.4-10.4 [facility] Comment on above: Performed By: #### H GBFO #### The performing lab is in the report. #### HEMDF, CMP3, TSH5 #### [address] [place] [address] #### RPRBP, HEPC, HBSAG, HVAAO #### [address] #### RUBG #### [place] [address] [place] [address] Platelets (Bld) [#/Vol] 330 10*3/uL Normal 140-440 [facility] Comment on above: Performed By: #### H GBFO #### The performing lab is in the report. #### HEMDF, CMP3, TSH5 #### [address] [address] #### RPRBP, HEPC, HBSAG, HVAAO #### [address] #### RUBG #### [place] [address] [place] [address] RBC (Bld) [#/Vol] 4.91 10*6/uL Normal 3.80-5.20 [facility] Comment on above: Performed By: #### H GBFO #### The performing lab is in the report. #### HEMDF, CMP3, TSH5 #### [address] [place] [address] #### RPRBP, HEPC, HBSAG, HVAAO #### [address] #### RUBG #### [facility] [address] [place] [address] WBC (Bld) [#/Vol] 9.1 10*3/uL Normal 3.6-10.7 [facility] Comment on above: Performed By: #### H GBFO #### The performing lab is in the report. #### HEMDF, CMP3, TSH5 #### [facility] [address] [place] [address] #### RPRBP, HEPC, HBSAG, HVAAO #### [facility] [address], [place] #### RUBG #### [facility] [address] [place] [address] Hep B Surface Agon Hep B Surface Ag Not detected Normal Not Detected [facility] Comment on above: Performed By: #### RAMIRO PRASAD #### [facility] Hep C Antibodyon 11-04-2021 Hep C Antibody Not detected Normal Not Detected [facility] Comment on above: Result Comment: Patients with DETECTED Hepatitis C Ab results should have a new specimen submitted for supplemental testing with a Hepatitis C Quantitative RNA assay (viral load), if clinically indicated. Performed By: #### RAMIRO PRASAD #### [facility] Rubella Immune Statuson 10-19 Rubella Immune Status 15.1 Normal [facility] Comment on above: Result Comment: Inte rpretation Table: <10.0 Antibody NOT Detected >=10.0 Antibody Detected Performed By: #### H GBFO #### The performing lab is in the report. #### HEMDF, CMP3, TSH5 #### [facility] [address] [place] [address] #### RPRBP, HEPC, HBSAG, HVAAO #### [facility] [address] #### RUBG #### [facility] [address] [place] [address] Thyroid Stim. Hormoneon 10-19 Thyroid Stim. Hormone 0.626 u[IU]/mL Normal 0.465-4.680 [facility] Comment on above: Performed By: #### RAMIRO PRASAD #### [facility] ABO Rh Blood Typeon 10-07-19 22 ABO and Rh group Nom (Bld) ABO Group: A Rh, Gel: POS Normal [facility] Comment on above: Performed By: #### RAMIRO PRASAD #### [facility] Antibody Screen Gelon 2021 Antibody Screen Gel Antibody Screen Gel: NEG Normal [facility] Comment on above: Performed By: #### RAMIRO PRASAD #### [facility] Comp Metabolic Panelon 10-07 ALT [Catalytic activity/Vol] 34 U/L Normal 0-34 [facility] Comment on above: Result Comment: The ALT test is performed by an updated assay method. Please note that the reference intervals have been changed and are now sex specific. Performed By: #### T SH5, CMP3, QWNT5, FT4M #### [facility] [address] [place] [address] Calcium [Mass/Vol] 10.0 mg/dL Normal 8.4-10.4 [facility] Comment on above: Performed By: #### T SH5, CMP3, QWNT5, FT4M #### [facility] [address] [place] [address] Glucose [Mass/Vol] 99 mg/dL Normal 70-100 [facility] Comment on above: Performed By: #### T SH5, CMP3, QWNT5, FT4M #### [facility] [address] [place] [address] Urea nitrogen [Mass/Vol] 6 mg/dL Low 9-20 [facility] Comment on above: Performed By: #### T SH5, CMP3, QWNT5, FT4M #### [facility] [address] [place] [address] ALP [Catalytic activity/Vol] 82 U/L Normal 38-126 [facility] Comment on above: Performed By: #### T SH5, CMP3, QWNT5, FT4M #### [facility] [address] [place] [address] Anion gap [Moles/Vol] 7 mmol/L Normal 3-13 [facility] Comment on above: Performed By: #### T SH5, CMP3, QWNT5, FT4M #### [facility] [address] [place] [address] AST [Catalytic activity/Vol] 34 U/L Normal 15-46 [facility] Comment on above: Performed By: #### T SH5, CMP3, QWNT5, FT4M #### [facility] [address] [place] [address] Bilirubin [Mass/Vol] 0.4 mg/dL Normal 0.2-1.3 [facility] Comment on above: Performed By: #### T SH5, CMP3, QWNT5, FT4M #### [facility] [address] [place] [address] CO2 [Moles/Vol] 27 mmol/L Normal 22-30 [facility] Comment on above: Performed By: #### T SH5, CMP3, QWNT5, FT4M #### [facility] [address] [place] [address] Creatinine [Mass/Vol] 0.63 mg/dL Normal 0.52-1.25 [facility] Comment on above: Performed By: #### T SH5, CMP3, QWNT5, FT4M #### [facility] [address] [place] [address] eGFR OTHER > 90.0 Normal >60 [facility] Comment on above: Result Comment: KDIG O guidelines provide the following GFR categories: Stage GFR(ml/min/1.73 m2) Terms G1 >=90 Normal or high G2 60-89 Mildly decreased* G3a 45-59 Mildly to moderately decreased G3b 30-44 Moderately to severely decreased G4 15-29 Severely decreased G5 <15 Kidney failure *Relative to young adult level. In the absence of evidence of kidney damage, neither GFR category G1 nor G2 fulfill the criteria for CKD. The CKD-EPI equation is validated in individuals 18 years of age and older. Currently the best equation for estimating glomerular filtration rate (GFR) from serum creatinine in children is the Bedside Stiles equation. It is less accurate in patients with extremes of muscle mass, restriction of dietary protein, ingestion of creatine, extra-renal metabolism of creatinine, or treatment with medications that affect renal tubular creatinine secretion. Performed By: #### T SH5, CMP3, QWNT5, FT4M #### [facility] [address] [place] [address] GFR/1.73 sq M.predicted among blacks MDRD (S/P/Bld) [Vol rate/Area] mL/min/{1.73_m2} Normal >60 [facility] Comment on above: Performed By: #### T SH5, CMP3, QWNT5, FT4M #### [facility] [address] [place] [address] Protein [Mass/Vol] 8.1 g/dL Normal 6.3-8.2 [facility] Comment on above: Performed By: #### T SH5, CMP3, QWNT5, FT4M #### [facility] [address] [place] [address] Potassium [Moles/Vol] 4.0 mmol/L Normal 3.5-5.1 [facility] Comment on above: Performed By: #### T SH5, CMP3, QWNT5, FT4M #### [facility] [address] [place] [address] Sodium [Moles/Vol] 139 mmol/L Normal 135-145 [facility] Comment on above: Performed By: #### T SH5, CMP3, QWNT5, FT4M #### [facility] [address] [place] [address] Albumin [Mass/Vol] 4.7 g/dL Normal 3.5-5.0 [facility] Comment on above: Performed By: #### T SH5, CMP3, QWNT5, FT4M #### [facility] [address] [place] [address] Chloride [Moles/Vol] 105 mmol/L Normal 98-107 [facility] Comment on above: Performed By: #### T SH5, CMP3, QWNT5, FT4M #### [facility] [address] [place] [address] Free T4on 10-07-2021 Free T4 [Mass/Vol] 1.43 ng/dL Normal 0.78-2.19 [facility] Comment on above: Performed By: #### T SH5, CMP3, QWNT5, FT4M #### [facility] [address] [place] [address] Thyroid Stim. Hormoneon 09-19 Thyroid Stim. Hormone 2.552 u[IU]/mL Normal 0.465-4.680 [facility] Comment on above: Performed By: #### T SH5, CMP3, QWNT5, FT4M #### [facility] [address] [place] [address] hCG Quantitativeon hCG Quantitative 41239 m[IU]/mL Normal [facility] Comment on above: Result Comment: Fema les < 5 Values in should double every 2 to 3 days for the first 6 weeks.Elevated concentrations of human chorionic gonadotropin (hCG) measured in the first trimester of are observed in normal , but may serve as an indication of chorionic carcinoma, hydatiform mole, or multiple .Decreasing hCG concentrations indicate threatened or missed , recent termination of , ectopic , gestosis or intrauterine . Esperanza- and postmenopausal females may have detectable hCG concentrations (< or = to 14 mIU/mL) due to pituitary production of hCG. Serum follicle-stimulating hormone measurement may aid in ruling-out in this population. Cutoffs of greater than 20 to 45 mIU/mL have been suggested and are method dependent. False-elevations (called phantom human chorionic gonadotropin: hCG) may occur with patients who have human antianimal or heterophilic antibodies. Some specimens may not dilute linearly due to abnormal forms of hCG. Elevated hCG concentrations not associated with are found in patients with other diseases such as tumors of the germ cells, ovaries, bladder, pancreas, stomach, lungs, and liver. This test is not intended to detect or monitor tumors or gestational trophoblastic disease. Performed By: #### T SH5, CMP3, QWNT5, FT4M #### [facility] [address] [place] [address] Iron % Saturationon 03-10-20 20 Iron % Saturation 19 % Normal 15-57 [facility] Comment on above: Result Comment: LYDIA ECTED: Previous result = 23, verified at 17:07 on 02/05/20. Performed By: #### C RP3 #### [place] [id number] HLA-B27on 02-12-2020 HLA-B27 SEE BELOW Normal [facility] Comment on above: Result Comment: HLA- B27 DNA Result Negative HLA-B27 is strongly associated with ankylosing spondylitis (). HLA-B27 is also associated with other seronegative arthropathies such as Malgorzata syndrome and psoriatic arthritis as well as extra-articular diseases such as anterior uveitis and inflammatory bowel disease. Greater than 90% of patients with are HLA-B27 positive. The frequency of HLA-B27 varies by ethnic group but generally <10 % in most populations. HLA-B27 associated susceptibility to varies by population and HLA-B27 alleles detected. Some alleles such as B27:05 are associated with high susceptibility while others such B27:06 and B27:09 are associated with low susceptibility. HLA-B27 allele typing is recommended in HLA-B27 positive cases. HLA typing performed by PCR-RSSOP and/or SBT. This test was developed and its performance characteristics determined by [employer]. The test has not been cleared or approved by the [place] FDA. However, FDA approval was not necessary since this lab is certified under CLIA for high complexity testing. Test performed by: [employer], [address], [place] [address] CLIA [id number] Performing Laboratory: Performed By: #### G FR #### [address] [address] CCP Antibody, IgGon 02-11-20 20 CCP Antibody, IgG <15 Normal <20 [facility] Comment on above: Result Comment: < 20 units: Negative 20-39 units: Weak Positive 40-59 units: Moderate Positive > 60 units: Strong Positive The following results were obtained with the [employer] QUANTA Lite CCP3 IgG MAGDALENO. Anti-CCP values obtained with different manufacturers' assay methods may not be used interchangeably. The magnitude of the reported IgG levels cannot be correlated to an endpoint titer. Performing Laboratory: [place] [address] Performed By: #### P 14 #### [place] [address] Complement C3on 02-11-2020 Complement C3 157 mg/dL Normal 86-166 [facility] Comment on above: Result Comment: Perf orming Laboratory: [place] [address] Performed By: #### P 14 #### [place] [address] Complement C4on 02-11-2020 Complement C4 34 mg/dL Normal 13-46 [facility] Comment on above: Result Comment: Perf orming Laboratory: [place] [address] Performed By: #### P 14 #### [place] [address] DS-DNA Ab w Confon 0 DS-DNA Ab w Conf SEE BELOW Normal [facility] Comment on above: Result Comment: DNA Antibody w/ Conf. <12 <30 IU/mL Negative for ds DNA Antibodies Negative: <30 IU/mL Equivocal: 30-74 IU/mL Positive: >74 IU/mL Performing Laboratory: [place] [address] Performed By: #### P 14 #### [place] [address] MACHINE BASTER Antibodyon 02-11-2020 MACHINE BASTER Antibody 0.2 AI Normal <1.0 [facility] Comment on above: Result Comment: Nega tive Negative: <1.0 AI Positive: >0.9 AI Test performed using the Multiplex Flow Immunoassay technology. Performing Laboratory: [place] [address] Performed By: #### P 14 #### [address] [address] Rheumatoid Factoron 02-11-20 20 Rheumatoid Factor <10 Normal <16 [facility] Comment on above: Result Comment: Perf orming Laboratory: [facility] [address] [place] [address] Performed By: #### P 14 #### [facility] [address] [place] [address] Sjogren Antibodieson 020 SSA Antibody <0.2 Normal <1.0 [facility] Comment on above: Result Comment: Nega tive Negative: <1.0 AI Positive: >0.9 AI Test performed using the Multiplex Flow Immunoassay technology. Performed By: #### P 14 #### [place] [address] SSB Antibody <0.2 Normal <1.0 [facility] Comment on above: Result Comment: Nega tive Negative: <1.0 AI Positive: >0.9 AI Test performed using the Multiplex Flow Immunoassay technology. Performing Laboratory: [place] [address] [place] [address] Performed By: #### P 14 #### [place] [address] Cheng Abs IgGon 02-11-2020 Cheng Abs IgG SEE BELOW Normal [facility] Comment on above: Result Comment: Sm A ntibody <0.2 <1.0 AI Negative Negative: <1.0 AI Positive: >0.9 AI Test performed using the Multiplex Flow Immunoassay technology. Performing Laboratory: [place] [address] [place] [address] Performed By: #### P 14 #### [place] [address] HIV Screenon 02-06-2020 HIV Screen Nonreactive Normal Nonreactive [facility] Comment on above: Result Comment: Alisha ents taking a biotin dose of up to 5 mg/day should refrain from taking biotin for 4 hours prior to sample collection. Patients taking a biotin dose of 5 to 10 mg/day should refrain from taking biotin for 8 hours prior to sample collection. Patients taking a biotin dose > 10 mg/day should consult with their physician or the laboratory prior to having a sample taken. Clinicians should consider biotin interference as a source of error, when clinically suspicious of the laboratory result. Performed By: #### P 14 #### [facility] [address] [place] [address] RPRon 02-06-2020 Reagin Ab RPR Ql (S) Non-reactive Normal Nonreactive [facility] Comment on above: Performed By: #### C RP3 #### [facility] [address] [place] [address] Total 25-OH Vitamin Don - Total 25-OH Vitamin D 31.3 ng/mL Normal 30.0-100.0 [facility] Comment on above: Performed By: #### C RP3 #### [facility] [address] [place] [address] Urinalysis, reflexon 020 Appearance (U) 2+ (SLT CLOUDY) Normal [facility] Comment on above: Performed By: #### P 14 #### [place] [address] Bacteria LM.HPF (Urine sed) [#/Area] FEW Abnormal None [facility] Comment on above: Performed By: #### P 14 #### [facility] [address] [place] [address] Bilirubin Urine Negative Normal Negative [facility] Comment on above: Performed By: #### P 14 #### [facility] [address] [place] [address] Color (U) PALE RED Normal [facility] Comment on above: Performed By: #### P 14 #### [facility] [address] [place] [address] Ep Cells Urine 13-20 Abnormal 0-5 [facility] Comment on above: Performed By: #### P 14 #### [facility] [address] [place] [address] Glucose Ql (U) Negative Normal Negative [facility] Comment on above: Performed By: #### P 14 #### [facility] [address] [place] [address] Hemoglobin,Urine 3+ Abnormal Negative [facility] Comment on above: Performed By: #### P 14 #### [facility] [address] [place] [address] Ketone Urine Negative Normal Negative [facility] Comment on above: Performed By: #### P 14 #### [facility] [address] [place] [address] Leukocytes Esterase Negative Normal Negative [facility] Comment on above: Performed By: #### P 14 #### [facility] [address] [place] [address] Nitrites Urine Negative Normal Negative [facility] Comment on above: Performed By: #### P 14 #### [facility] [address] [place] [address] pH (U) 7.0 [pH] Normal 5.0-8.0 [facility] Comment on above: Performed By: #### P 14 #### [facility] [address] [place] [address] Protein (U) [Mass/Vol] 1+ Abnormal Negative [facility] Comment on above: Performed By: #### P 14 #### [facility] [address] [place] [address] RBC LM.HPF (Urine sed) [#/Area] 1-3 Normal 0-3 [facility] Comment on above: Performed By: #### P 14 #### [place] [address] Specific [place], Ur 1.010 Normal 1.005-1.030 [facility] Comment on above: Performed By: #### P 14 #### [place] [address] Urobilinogen,Ur 0.2 EU/dL Normal 0.2-1.0 [facility] Comment on above: Performed By: #### P 14 #### [facility] [address] [place] [address] WBC LM.HPF (Urine sed) [#/Area] 1-3 Normal 0-5 [facility] Comment on above: Performed By: #### P 14 #### [place] [address] CPKon 02-05-2020 CPK 111 U/L Normal 42-196 [facility] Comment on above: Performed By: #### L ESR #### [facility] [address] [place], [place] [address] CRPon 02-05-2020 CRP [Mass/Vol] 0.6 mg/dL Normal 0.0-0.8 [facility] Comment on above: Performed By: #### C RP3 #### [facility] [address] [place], [place] [address] Ferritinon 02-05-2020 Ferritin [Mass/Vol] 27.1 ng/mL Normal 14.7-205.1 [facility] Comment on above: Result Comment: Alisha ents taking a biotin dose of up to 5 mg/day should refrain from taking biotin for 4 hours prior to sample collection. Patients taking a biotin dose of 5 to 10 mg/day should refrain from taking biotin for 8 hours prior to sample collection. Patients taking a biotin dose > 10 mg/day should consult with their physician or the laboratory prior to having a sample taken. Clinicians should consider biotin interference as a source of error, when clinically suspicious of the laboratory result. Performed By: #### C RP3 #### [facility] [address] [place] [address] Iron % Saturationon 02-05-20 20 Iron Serum 75 ug/dL Normal 41-186 [facility] Comment on above: Performed By: #### C RP3 #### [facility] [address] [place] [address] Total Iron Binding Cap. 399 ug/dL High 232-386 [facility] Comment on above: Performed By: #### C RP3 #### [facility] [address] [place], [place] [address] Sed Rateon 02-05-2020 Sed Rate 11 mm/hr Normal 0-20 [facility] Comment on above: Performed By: #### C RP3 #### [facility] [address] [place], [place] [address] XR FOOT 3V AP/LAT/OBL LTon 0 02-05-2020 XR FOOT 3V AP/LAT/OBL LT * * *Final Report* * * DATE OF EXAM: Feb 05 2020 1:55PM LDX 5336 - XR FOOT 3V AP/LAT/OBL LT / PROCEDURE REASON: JESUS positive * * * * Physician Interpretation * * * * TECHNIQUE: BILATERAL XR FOOT 3V AP/LAT/OBL RT, XR FOOT 3V AP/LAT/OBL LT - EXAM DATE: 02/05/2020 1:55 PM CLINICAL HISTORY: JESUS positive COMPARISON: None RESULT: Bony alignment and joint spaces are normal. A fracture is not seen in either feet. There is no soft tissue swelling. No ankle joint effusion is seen on either side. Bone density is normal. IMPRESSION: No radiographic abnormality of the feet Chaperon: [facility] Transcribe Date/Time: Feb 05 2020 1:59P Dictated by : VALENTINO MARKS MD This examination was interpreted and the report reviewed and electronically signed by: VALENTINO MARKS MD on Feb 05 2020 2:00PM EST Normal [facility] XR FOOT 3V AP/LAT/OBL RTon 0 02-05-2020 XR FOOT 3V AP/LAT/OBL RT * * *Final Report* * * DATE OF EXAM: Feb 05 2020 1:55PM LDX 5337 - XR FOOT 3V AP/LAT/OBL RT / PROCEDURE REASON: JESUS positive * * * * Physician Interpretation * * * * TECHNIQUE: BILATERAL XR FOOT 3V AP/LAT/OBL RT, XR FOOT 3V AP/LAT/OBL LT - EXAM DATE: 02/05/2020 1:55 PM CLINICAL HISTORY: JESUS positive COMPARISON: None RESULT: Bony alignment and joint spaces are normal. A fracture is not seen in either feet. There is no soft tissue swelling. No ankle joint effusion is seen on either side. Bone density is normal. IMPRESSION: No radiographic abnormality of the feet Chaperon: [facility] Transcribe Date/Time: Feb 05 2020 1:59P Dictated by : VALENTINO MARKS MD This examination was interpreted and the report reviewed and electronically signed by: VALENTINO MARKS MD on Feb 05 2020 2:00PM EST Normal [facility] XR HAND 3V PA/LAT/OBL LTon 0 02-05-2020 XR HAND 3V PA/LAT/OBL LT * * *Final Report* * * DATE OF EXAM: Feb 05 2020 1:55PM LDX 5345 - XR HAND 3V PA/LAT/OBL LT / PROCEDURE REASON: JESUS positive * * * * Physician Interpretation * * * * EXAMINATION: XR HAND 3V PA/LAT/OBL LT, XR HAND 3V PA/LAT/OBL RT HISTORY: Pt. states joint pain, in feet, hands, lower back and bilateral hips, ongoing since childhood, NKI, no surgeries. (accession [id number]), Pt. states joint pain, in feet, hands, lower back and bilateral hips, chronic since childhood, NKI, no surgeries, rule out RA. (accession [id number]) JESUS positive . TECHNIQUE: XR HAND 3V PA/LAT/OBL LT, XR HAND 3V PA/LAT/OBL RT Laterality: LEFT (accession [id number]), RIGHT (accession [id number]) Number of different views (projections): 3 views right hand, 3 views left hand. M: XB_1 COMPARISON: None. RESULT: FRACTURE: None. ALIGNMENT: Normal. JOINT SPACES: Preserved. SOFT TISSUES: Normal. OTHER FINDINGS: None. IMPRESSION: Normal bilateral hand radiographs. Chaperon: [facility] Transcribe Date/Time: Feb 05 2020 1:59P Dictated by : TASNEEM FIGUEROA MD This examination was interpreted and the report reviewed and electronically signed by: TASNEEM FIGUEROA MD on Feb 05 2020 2:03PM EST Normal [facility] XR HAND 3V PA/LAT/OBL RTon 0 02-05-2020 XR HAND 3V PA/LAT/OBL RT * * *Final Report* * * DATE OF EXAM: Feb 05 2020 1:55PM LDX 5346 - XR HAND 3V PA/LAT/OBL RT / PROCEDURE REASON: JESUS positive * * * * Physician Interpretation * * * * EXAMINATION: XR HAND 3V PA/LAT/OBL LT, XR HAND 3V PA/LAT/OBL RT HISTORY: Pt. states joint pain, in feet, hands, lower back and bilateral hips, ongoing since childhood, NKI, no surgeries. (accession [id number]), Pt. states joint pain, in feet, hands, lower back and bilateral hips, chronic since childhood, NKI, no surgeries, rule out RA. (accession [id number]) JESUS positive . TECHNIQUE: XR HAND 3V PA/LAT/OBL LT, XR HAND 3V PA/LAT/OBL RT Laterality: LEFT (accession [id number]), RIGHT (accession [id number]) Number of different views (projections): 3 views right hand, 3 views left hand. M: XB_1 COMPARISON: None. RESULT: FRACTURE: None. ALIGNMENT: Normal. JOINT SPACES: Preserved. SOFT TISSUES: Normal. OTHER FINDINGS: None. IMPRESSION: Normal bilateral hand radiographs. Chaperon: [facility] Transcribe Date/Time: Feb 05 2020 1:59P Dictated by : TASNEEM FIGUEROA MD This examination was interpreted and the report reviewed and electronically signed by: TASNEEM FIGUEROA MD on Feb 05 2020 2:03PM EST Normal [facility] XR LUMBAR 2V AP/LATon 2019 XR LUMBAR 2V AP/LAT * * *Final Report* * * DATE OF EXAM: Feb 05 2020 1:55PM LDX 5229 - XR LUMBAR 2V AP/LAT / PROCEDURE REASON: JESUS positive * * * * Physician Interpretation * * * * EXAMINATION: XR LUMBAR 2V AP/LAT, XR SI JTS 2V AP PELV/[place] CLINICAL HISTORY: 19-year-old female with chronic joint pain and positive JESUS. Initial workup. TECHNIQUE: XR LUMBAR 2V AP/LAT, XR SI JTS 2V AP PELV/[place] with 3 (accession [id number]), 2 (accession [id number]) views on 3 (accession [id number]), 2 (accession [id number]) images MQ: XLS_1 COMPARISON: Hip x-rays 10/04/2019 RESULT: Counting Reference: Lumbosacral junction on lateral view. For the purposes of this report, L5S1 is considered the last lumbar type disc space and L4-5 is considered the level of the iliac crest. Normal. Alignment: Normal. No scoliosis or kyphosis. No significant spondylolisthesis. No ankylosis. Vertebral bodies: Normal in height. No vertebral fracture. Spine articulations: Disc spaces are normal. Normal, facet joints are maintained. Soft tissues: Normal. SI joints: Bilateral SI joints are symmetric without sclerosis or erosions. Other: The bilateral femoral acetabular joints appear maintained. IMPRESSION: Normal radiographs of the lumbar spine and SI joints. Anatomic Variant: None. L4-5 is considered the level of the iliac crest and assume there are 5 lumbar-type vertebrae. Chaperon: [facility] Transcribe Date/Time: Feb 05 2020 1:59P Dictated by : DORIAN HERNANDEZ MD This examination was interpreted and the report reviewed and electronically signed by: VALENTINO MARKS MD on Feb 05 2020 3:52PM EST Normal [facility] XR SI JTS 2V AP PELV/FERGUSO Non 02-05-2020 XR SI JTS 2V AP PELV/[place] * * *Final Report* * * DATE OF EXAM: Feb 05 2020 1:55PM LDX 5245 - XR SI JTS 2V AP PELV/[place] / PROCEDURE REASON: JESUS positive * * * * Physician Interpretation * * * * EXAMINATION: XR LUMBAR 2V AP/LAT, XR SI JTS 2V AP PELV/[place] CLINICAL HISTORY: 19-year-old female with chronic joint pain and positive JESUS. Initial workup. TECHNIQUE: XR LUMBAR 2V AP/LAT, XR SI JTS 2V AP PELV/[place] with 3 (accession [id number]), 2 (accession [id number]) views on 3 (accession [id number]), 2 (accession [id number]) images MQ: XLS_1 COMPARISON: Hip x-rays 10/04/2019 RESULT: Counting Reference: Lumbosacral junction on lateral view. For the purposes of this report, L5S1 is considered the last lumbar type disc space and L4-5 is considered the level of the iliac crest. Normal. Alignment: Normal. No scoliosis or kyphosis. No significant spondylolisthesis. No ankylosis. Vertebral bodies: Normal in height. No vertebral fracture. Spine articulations: Disc spaces are normal. Normal, facet joints are maintained. Soft tissues: Normal. SI joints: Bilateral SI joints are symmetric without sclerosis or erosions. Other: The bilateral femoral acetabular joints appear maintained. IMPRESSION: Normal radiographs of the lumbar spine and SI joints. Anatomic Variant: None. L4-5 is considered the level of the iliac crest and assume there are 5 lumbar-type vertebrae. Chaperon: [facility] Transcribe Date/Time: Feb 05 2020 1:59P Dictated by : DORIAN HERNANDEZ MD This examination was interpreted and the report reviewed and electronically signed by: VALENTINO MARKS MD on Feb 05 2020 3:52PM EST Normal [facility] JESUS by [employer]FA [employer]rn w [employer] JESUS by IFA Scrn w [employer] SEE BELOW Normal [facility] Comment on above: Result Comment: JESUS Positive AB NEGAT Normal range : negative at <1:80 serum dilution. JESUS Titer 1:1280 AB NEGAT JESSU Pattern Nucleolar Performing Laboratory: [facility] [address] [place] [address] Performed By: #### L ESR #### [facility] [address] [place], [place] [address] Hepatitis A Totalon 11-03-19 20 Hepatitis A Total Negative Normal NEGAT [facility] Comment on above: Result Comment: Perf orming Laboratory: [facility] [address] [place] [address] Performed By: #### L ESR #### [place] [address] Basic Panelon 10-29-2019 Anion gap [Moles/Vol] 5 mmol/L Low 8-16 [facility] Comment on above: Performed By: #### L ESR #### [place] [address] Chloride [Moles/Vol] 106 mmol/L Normal 98-107 [facility] Comment on above: Performed By: #### L ESR #### [place] [address] Potassium [Moles/Vol] 3.7 mmol/L Normal 3.5-5.1 [facility] Comment on above: Performed By: #### L ESR #### [place] [address] Sodium [Moles/Vol] 135 mmol/L Low 136-145 [facility] Comment on above: Performed By: #### L ESR #### [place] [address] Creatinine [Mass/Vol] 0.64 mg/dL Normal 0.51-0.95 [facility] Comment on above: Result Comment: Use of this assay is not recommended for patients undergoing treatment with phenindione, due to the potential for falsely depressed results. Performed By: #### L ESR #### [place] [address] CO2 [Moles/Vol] 28 mmol/L Normal 21-32 [facility] Comment on above: Performed By: #### L ESR #### [place] [address] Calcium [Mass/Vol] 9.0 mg/dL Normal 8.5-10.1 [facility] Comment on above: Performed By: #### L ESR #### [facility] [address] [place] [address] Glucose [Mass/Vol] 79 mg/dL Normal 70-99 [facility] Comment on above: Performed By: #### L ESR #### [facility] [address] [place] [address] Urea nitrogen [Mass/Vol] 17 mg/dL Normal 7-18 [facility] Comment on above: Performed By: #### L ESR #### [place] [address] CRPon 10-29-2019 CRP [Mass/Vol] mg/L Normal 0.00-0.30 [facility] Comment on above: Performed By: #### L ESR #### [place] [address] Hepatitis Acute Panelon 10-19 HAV Ab IgM Negative Normal Negative [facility] Comment on above: Performed By: #### L ESR #### [place] [address] HB Core Ab IgM Negative Normal Negative [facility] Comment on above: Performed By: #### L ESR #### [place] [address] Hepatitis C Ab Negative Normal Negative [facility] Comment on above: Performed By: #### L ESR #### [place] [address] Hep.B Surface Ag Negative Normal Negative [facility] Comment on above: Performed By: #### L ESR #### [place] [address] MDRD GFRon 10-29-2019 GFR/1.73 sq M predicted among non-blacks MDRD (S/P/Bld) [Vol rate/Area] mL/min/{1.73_m2} Normal >60mL/min/1.73m 2 [facility] Comment on above: Result Comment: If t he patient is , multiply the result by 1.210. Performed By: #### L ESR #### [facility] [address] [place], [place] [address] Hemogram/Diffon 10-28-2019 Abs. Baso 0.03 thou/cmm Normal 0.00-0.08 [facility] Comment on above: Performed By: #### L FT4 #### [facility] [address] [place], [place] [address] Abs. Traill 0.63 thou/cmm Normal 0.20-1.00 [facility] Comment on above: Performed By: #### L FT4 #### [address] [address] Abs. Neut (ANC) 4.01 thou/cmm Normal 3.00-5.67 [facility] Comment on above: Performed By: #### L FT4 #### [place] [address] Basophils/100 WBC (Bld) 0.4 % Normal [facility] Comment on above: Performed By: #### L FT4 #### [address] [address] Eosinophils (Bld) [#/Vol] 0.15 thou/cmm Normal 0.00-0.41 [facility] Comment on above: Performed By: #### L FT4 #### [place] [address] Eosinophils/100 WBC (Bld) 1.9 % Normal [facility] Comment on above: Performed By: #### L FT4 #### [place] [address] Erythrocyte distribution width (RBC) [Ratio] 14.8 % Normal 11.5-15.9 [facility] Comment on above: Performed By: #### L FT4 #### [facility] [address] [place], [place] [address] Hematocrit (Bld) [Volume fraction] 42.0 % Normal 37.0-47.0 [facility] Comment on above: Performed By: #### L FT4 #### [address], [place] [address] Hemoglobin (Bld) [Mass/Vol] 13.0 g/dL Normal 12.0-16.0 [facility] Comment on above: Performed By: #### L FT4 #### [facility] [address] [place], [place] [address] Lymphocytes (Bld) [#/Vol] 3.18 thou/cmm Normal 1.50-3.65 [facility] Comment on above: Performed By: #### L FT4 #### [facility] [address] [place], [place] [address] Lymphocytes/100 WBC (Bld) 39.7 % Normal [facility] Comment on above: Performed By: #### L FT4 #### [facility] [address] [place], [place] [address] MCH (RBC) [Entitic mass] 27.3 pg Normal 27.0-31.0 [facility] Comment on above: Performed By: #### L FT4 #### [facility] [address] [place], [place] [address] MCHC (RBC) [Mass/Vol] 31.0 % Low 32.0-36.0 [facility] Comment on above: Performed By: #### L FT4 #### [facility] [address] [place], [place] [address] MCV (RBC) [Entitic vol] 88.2 fL Normal 81.0-99.0 [facility] Comment on above: Performed By: #### L FT4 #### [facility] [address] [place], [place] [address] Monocytes/100 WBC (Bld) 7.9 % Normal [facility] Comment on above: Performed By: #### L FT4 #### [facility] [address] [place], [place] [address] Platelet mean volume (Bld) [Entitic vol] 8.9 fL Normal 7.1-10.5 [facility] Comment on above: Performed By: #### L FT4 #### [address] [address] Platelets (Bld) [#/Vol] 426 thou/cmm High 150-400 [facility] Comment on above: Performed By: #### L FT4 #### [facility] [address] [place] [address] RBC (Bld) [#/Vol] 4.76 mil/cmm Normal 4.20-5.40 [facility] Comment on above: Performed By: #### L FT4 #### [place] [address] Seg Neutrophil 50.1 % Normal [facility] Comment on above: Performed By: #### L FT4 #### [facility] [address] [place] [address] WBC (Bld) [#/Vol] 8.0 thou/cmm Normal 4.8-10.5 [facility] Comment on above: Performed By: #### L FT4 #### [place] [address] Hepatic Panelon 10-28-2019 Albumin [Mass/Vol] 3.7 g/dL Normal 3.4-5.0 [facility] Comment on above: Performed By: #### L ESR #### [place] [address] Albumin/Globulin [Mass ratio] 0.9 {ratio} Normal 0.9-2.4 [facility] Comment on above: Performed By: #### L ESR #### [place] [address] ALP [Catalytic activity/Vol] 93 U/L Normal 50-130 [facility] Comment on above: Performed By: #### L ESR #### [place] [address] ALT-SGPT Blood 77 U/L High 14-63 [facility] Comment on above: Performed By: #### L ESR #### [place] [address] AST-SGOT Blood 20 U/L Normal 15-37 [facility] Comment on above: Performed By: #### L ESR #### [place] [address] Bilirubin Ql (U) 0.6 mg/dL Normal 0.2-1.0 [facility] Comment on above: Performed By: #### L ESR #### [facility] [address] [place] [address] Bilirubin.direct [Mass/Vol] 0.29 mg/dL High 0.00-0.20 [facility] Comment on above: Performed By: #### L ESR #### [facility] [address] [place] [address] Bilirubin.indirect (Body fld) [Mass/Vol] 0.4 mg/dL Normal 0.0-0.7 [facility] Comment on above: Performed By: #### L ESR #### [facility] [address] [place] [address] Protein [Mass/Vol] 7.7 g/dL Normal 6.4-8.2 [facility] Comment on above: Performed By: #### L ESR #### [facility] [address] [place] [address] Monoteston 10-28-2019 Monotest Positive Abnormal Negative [facility] Comment on above: Performed By: #### L FT4 #### [place] [address] CT NECK SOFT TISSUE W IVCONo n 10-14-2019 CT NECK SOFT TISSUE W IVCON * * *Final Report* * * DATE OF EXAM: Oct 14 2019 1:30PM [facility] 0013 - CT NECK SOFT TISSUE W IVCON / PROCEDURE REASON: Peritonsillar abscess * * * * Physician Interpretation * * * * EXAMINATION: CT NECK SOFT TISSUE WITH IV CONTRAST HISTORY: Sore throat. Peritonsillar abscess. Recent diagnosis of mononucleosis. Technique: CT of the soft tissues of the neck with IV contrast. A series of contiguous helical scans were performed from the skull base to the aortic arch. M: [id number] Contrast: 100 mL Omnipaque [address] Dose-Length Product (DLP): 593.99 mGy*cm CT Dose Reduction Employed: No dose reduction techniques were required COMPARISON: No prior available. RESULT: Postoperative change: None apparent. Suprahyoid Neck: Enlargement of bilateral palatine tonsils. No tonsillar abscess. Prominence of bilateral adenoidal soft tissues. No focal nasopharyngeal or oropharyngeal lesion. Parapharyngeal tissue planes are preserved. Oral cavity and floor of mouth appear normal within constraints of artifact from dental amalgam. Parotid and submandibular spaces are normal. Vocal Teacher spaces appear normal. Infrahyoid Neck: Hypopharynx, larynx, and imaged infraglottic trachea appear normal. Imaged upper esophagus is unremarkable. Thyroid gland is homogeneous without evidence of discrete nodule. Lymph Nodes: There is bilateral jugulodigastric, level IIa, lymphadenopathy which short axis greater than 1 cm.. Additional lymph nodes are scattered in the lack and prominent in size but are not pathologically enlarged by size criteria. Carotid Space: No masses. Patent extracranial carotid systems and internal jugular veins bilaterally. Orbits, Face and Skull Base: Orbital soft tissue planes are preserved. Minimal mucosal thickening in the left maxillary sinus. Frothy secretions noted in the right frontal sinus. The remaining visualized paranasal sinuses are clear. Mastoid air cells and middle ear cavities are clear. No evidence of an osteolytic or osteoblastic process in the skull base. Imaged intracranial contents: No enhancement, no mass effect, and no hydrocephalus. Cervical spine and remaining osseous structures: Alignment is normal. No discrete osteolytic or osteoblastic process. No significant spondylotic changes in the visualized spine. Lung apices: No mass and no focal consolidation in imaged lung apices. Other: Not applicable. IMPRESSION: 1. Nonspecific pharyngitis with tonsillar/adenoidal enlargement and bilateral jugulodigastric lymphadenopathy. Findings are highly suggestive of a viral process such as mononucleosis. 2. No evidence of tonsillar abscess. 3. Minimal sinus findings, most likely chronic. Correlate clinically. Chaperon: SHAN Transcribe Date/Time: Oct 14 2019 1:34P Dictated by : LESTER SAUCEDA MD This examination was interpreted and the report reviewed and electronically signed by: LESTER SAUCEDA MD on Oct 14 2019 1:44PM EST Normal [facility] Comprehensive Panelon 2019 Anion gap [Moles/Vol] 12 mmol/L Normal 8-20 [facility] Comment on above: Performed By: #### L FT4 #### [address] [address] Chloride [Moles/Vol] 104 mmol/L Normal 98-109 [facility] Comment on above: Result Comment: Test ing performed on an [employer] i-STAT. Performed By: #### L FT4 #### [facility] [address] [place] [address] Potassium [Moles/Vol] 5.7 mmol/L High 3.5-4.9 [facility] Comment on above: Result Comment: SPEC IMEN SLIGHTLY HEMOLYZED Testing performed on an [employer] i-STAT. Performed By: #### L FT4 #### [facility] [address] [place] [address] Sodium [Moles/Vol] 134 mmol/L Low 138-146 [facility] Comment on above: Result Comment: Test ing performed on an [employer] i-STAT. Performed By: #### L FT4 #### [facility] [address] [place] [address] Albumin [Mass/Vol] 3.3 g/dL Low 3.4-5.0 [facility] Comment on above: Performed By: #### L FT4 #### [facility] [address] [place] [address] ALP [Catalytic activity/Vol] 304 U/L High 50-130 [facility] Comment on above: Performed By: #### L FT4 #### [facility] [address] [place] [address] ALT-SGPT Blood 111 U/L High 14-63 [facility] Comment on above: Performed By: #### L FT4 #### [facility] [address] [place] [address] AST-SGOT Blood 69 U/L High 15-37 [facility] Comment on above: Performed By: #### L FT4 #### [facility] [address] [place] [address] Bilirubin Ql (U) 1.2 mg/dL High 0.2-1.0 [facility] Comment on above: Performed By: #### L FT4 #### [facility] [address] [place] [address] Calcium [Mass/Vol] 9.2 mg/dL Normal 8.5-10.1 [facility] Comment on above: Performed By: #### L FT4 #### [facility] [address] [place], [place] [address] CO2 Blood 24 mEq/L Normal 21-32 [facility] Comment on above: Performed By: #### L FT4 #### [facility] [address] [place], [place] [address] Creatinine [Mass/Vol] 0.73 mg/dL Normal 0.51-0.95 [facility] Comment on above: Result Comment: Use of this assay is not recommended for patients undergoing treatment with phenindione, due to the potential for falsely depressed results. Performed By: #### L FT4 #### [facility] [address] [place], [place] [address] Glucose [Mass/Vol] 79 mg/dL Normal 70-99 [facility] Comment on above: Performed By: #### L FT4 #### [facility] [address] [place], [place] [address] Protein [Mass/Vol] 8.3 g/dL High 6.4-8.2 [facility] Comment on above: Performed By: #### L FT4 #### [facility] [address] [place], [place] [address] Urea nitrogen [Mass/Vol] 7 mg/dL Normal 7-18 [facility] Comment on above: Performed By: #### L FT4 #### [facility] [address] [place], [place] [address] Urea nitrogen/Creatinine [Mass ratio] 10 mg/mg Normal 10-20 [facility] Comment on above: Performed By: #### L FT4 #### [facility] [address] [place], [place] [address] Hemogram/Manual Diffon 10-14 Abs. Baso 0.00 thou/cmm Normal 0.00-0.08 [facility] Comment on above: Performed By: #### L FT4 #### [facility] [address] [place], [place] [address] Abs. Eosin 0.00 thou/cmm Normal 0.00-0.41 [facility] Comment on above: Performed By: #### L FT4 #### [facility] [address] [place] [address] Abs. Lymph 7.53 thou/cmm High 1.50-3.65 [facility] Comment on above: Performed By: #### L FT4 #### [facility] [address] [place] [address] Abs. Traill 0.21 thou/cmm Normal 0.20-1.00 [facility] Comment on above: Performed By: #### L FT4 #### [facility] [address] [place] [address] Abs. Neut (ANC) 2.86 thou/cmm Low 3.00-5.67 [facility] Comment on above: Performed By: #### L FT4 #### [facility] [address] [place] [address] Atypical Lymph 31.0 % Normal [facility] Comment on above: Performed By: #### L FT4 #### [facility] [address] [place] [address] Basophil 0.0 % Normal [facility] Comment on above: Performed By: #### L FT4 #### [facility] [address] [place] [address] Eosinophil 0.0 % Normal [facility] Comment on above: Performed By: #### L FT4 #### [facility] [address] [place] [address] Lymphocyte 40.0 % Normal [facility] Comment on above: Performed By: #### L FT4 #### [facility] [address] [place] [address] Monocyte 2.0 % Normal [facility] Comment on above: Performed By: #### L FT4 #### [facility] [address] [place] [address] Platelets (Bld) [#/Vol] Normal Normal [facility] Comment on above: Performed By: #### L FT4 #### [facility] [address] [place] [address] RBC morphology finding Nom (Bld) Normal Normal [facility] Comment on above: Performed By: #### L FT4 #### [facility] [address] [place] [address] Seg Neutrophil 27.0 % Normal [facility] Comment on above: Performed By: #### L FT4 #### [facility] [address] [place] [address] Diff Type Manual Diff Normal [facility] Comment on above: Performed By: #### L FT4 #### [facility] [address] [place] [address] Erythrocyte distribution width (RBC) [Ratio] 15.2 % Normal 11.5-15.9 [facility] Comment on above: Performed By: #### L FT4 #### [facility] [address] [place] [address] Hematocrit (Bld) [Volume fraction] 42.7 % Normal 37.0-47.0 [facility] Comment on above: Performed By: #### L FT4 #### [facility] [address] [place] [address] Hemoglobin (Bld) [Mass/Vol] 13.3 g/dL Normal 12.0-16.0 [facility] Comment on above: Performed By: #### L FT4 #### [facility] [address] [place] [address] MCH (RBC) [Entitic mass] 26.8 pg Low 27.0-31.0 [facility] Comment on above: Performed By: #### L FT4 #### [facility] [address] [place] [address] MCHC (RBC) [Mass/Vol] 31.1 % Low 32.0-36.0 [facility] Comment on above: Performed By: #### L FT4 #### [facility] [address] [place] [address] MCV (RBC) [Entitic vol] 86.1 fl Normal 81.0-99.0 [facility] Comment on above: Performed By: #### L FT4 #### [place] [address] Platelet mean volume (Bld) [Entitic vol] 10.4 fl Normal 7.1-10.5 [facility] Comment on above: Performed By: #### L FT4 #### [facility] [address] [place], [place] [address] Platelets (Bld) [#/Vol] 239 thou/cmm Normal 150-400 [facility] Comment on above: Performed By: #### L FT4 #### [facility] [address] [place], [place] [address] RBC (Bld) [#/Vol] 4.96 mil/cmm Normal 4.20-5.40 [facility] Comment on above: Performed By: #### L FT4 #### [facility] [address] [place], [place] [address] WBC (Bld) [#/Vol] 10.6 thou/cmm High 4.8-10.5 [facility] Comment on above: Performed By: #### L FT4 #### [facility] [address] [place] [address] MDRD eGFRon 10-14-2019 GFR/1.73 sq M predicted among non-blacks MDRD (S/P/Bld) [Vol rate/Area] mL/min/{1.73_m2} Normal >60mL/min/1.73m 2 [facility] Comment on above: Result Comment: If t he patient is , multiply the result by 1.210. Performed By: #### L FT4 #### [facility] [address] [place] [address] Misc. Teston 10-14-2019 Misc. Test Result SEE BELOW Normal [facility] Comment on above: Result Comment: Handley ose Binding Lect >3825 Reference range: >=50 Unit: ng/mL (NOTE) INTERPRETIVE INFORMATION: Mannose Binding Lectin Mannose-binding protein is a component of the innate or natural immune system which binds to mannose residues on a variety of different microorganisms. When bound, this lectin will trigger the complement pathway resulting in opsonization. Mannose-binding protein is also an acute phase reactant produced by the liver. Patients who have abnormal levels of mannose-binding protein may have recurrent significant infections in the absence of abnormalities in the four major arms of the immune system. Abnormal mannose-binding protein concentrations have been found in patients with infectious disorders such as tuberculosis, hepatitis B, and in autoimmune disorders including recurrent spontaneous and systemic lupus erythematosis. Test developed and characteristics determined by [employer]. See Compliance Statement D: [employer]/ Performed by [facility], [address] [place] [address] [email or web address], Austin Lujan MD, Lab. Director Performing Laboratory: Performed By: #### G OX ####[facility] [place], [place] [address] Potassium Bloodon 10-14-2019 Potassium [Moles/Vol] 4.1 mmol/L Normal 3.5-4.9 [facility] Comment on above: Result Comment: Test ing performed on an [employer] i-STAT. Performed By: #### L FT4 #### [facility] [address] [place], [place] [address] Hepatitis A Totalon 10-11-19 20 Hepatitis A Total Positive Abnormal NEGAT [facility] Comment on above: Result Comment: Perf orming Laboratory: [facility] [address] [place] [address] Performed By: #### L FT4 #### [address] [address] IgEon 10-11-2019 IgE Qn 28.1 kU/L Normal <114 [facility] Comment on above: Result Comment: Perf orming Laboratory: [facility] [address] [place] [address] Performed By: #### L FT4 #### [address] [address] IgG Subclass/Totalon 020 IgG Subclass/Total SEE BELOW Normal [facility] Comment on above: Result Comment: IgG Subclass 1 856.5 382.4-928.6 mg/dL IgG Subclass 2 490.0 241.8-700.3 mg/dL IgG Subclass 3 114.1 21.8-176.1 mg/dL IgG Subclass 4 120.4 H 3.9-86.4 mg/dL IgG 1590 H 717-1411 mg/dL Performing Laboratory: [facility] [address] [place] [address] Performed By: #### L FT4 #### [facility] [address] [place], [place] [address] Total Complementon 0 Total Complement 73.1 U/mL Normal 41.7-95.1 [facility] Comment on above: Result Comment: Perf orming Laboratory: [facility] [address] [place] [address] Performed By: #### L TSH #### [facility] [address] [place], [place] [address] Comprehensive Panelon 2019 ALP [Catalytic activity/Vol] 318 U/L High 45-117 [facility] Comment on above: Performed By: #### L TSH #### [facility] [address] [place], [place] [address] Protein [Mass/Vol] 7.4 g/dL Normal 6.4-8.2 [facility] Comment on above: Performed By: #### L TSH #### [address] [address] Creatinine [Mass/Vol] 0.83 mg/dL Normal 0.51-0.95 [facility] Comment on above: Result Comment: Use of this assay is not recommended for patients undergoing treatment with phenindione, due to the potential for falsely depressed results. Performed By: #### L TSH #### [facility] [address] [place], [place] [address] ALT [Catalytic activity/Vol] 251 U/L High 12-78 [facility] Comment on above: Performed By: #### L TSH #### [address] [address] Bilirubin [Mass/Vol] 2.9 mg/dL High 0.2-1.0 [facility] Comment on above: Performed By: #### L TSH #### [facility] [address] [place], [place] [address] AST [Catalytic activity/Vol] 169 U/L High 15-37 [facility] Comment on above: Performed By: #### L TSH #### [address] [address] Albumin [Mass/Vol] 3.1 g/dL Low 3.4-5.0 [facility] Comment on above: Performed By: #### L TSH #### [facility] [address] [place], [place] [address] Anion gap [Moles/Vol] 9 mmol/L Normal 8-16 [facility] Comment on above: Performed By: #### L TSH #### [facility] [address] [place], [place] [address] CO2 [Moles/Vol] 27 mmol/L Normal 21-32 [facility] Comment on above: Performed By: #### L TSH #### [facility] [address] [place], [place] [address] Glucose [Mass/Vol] 97 mg/dL Normal 70-99 [facility] Comment on above: Performed By: #### L TSH #### [facility] [address] [place], [place] [address] Calcium [Mass/Vol] 8.8 mg/dL Normal 8.5-10.1 [facility] Comment on above: Performed By: #### L TSH #### [facility] [address] [place], [place] [address] Urea nitrogen [Mass/Vol] 5 mg/dL Low 7-18 [facility] Comment on above: Performed By: #### L TSH #### [facility] [address] [place], [place] [address] Chloride [Moles/Vol] 103 mmol/L Normal 98-107 [facility] Comment on above: Performed By: #### L TSH #### [facility] [address] [place], [place] [address] Potassium [Moles/Vol] 3.9 mmol/L Normal 3.5-5.1 [facility] Comment on above: Performed By: #### L TSH #### [facility] [address] [place], [place] [address] Sodium [Moles/Vol] 135 mmol/L Low 136-145 [facility] Comment on above: Performed By: #### L TSH #### [facility] [address] [place], [place] [address] MDRD GFRon 10-10-2019 GFR/1.73 sq M predicted among non-blacks MDRD (S/P/Bld) [Vol rate/Area] mL/min/{1.73_m2} Normal >60mL/min/1.73m 2 [facility] Comment on above: Result Comment: If t he patient is , multiply the result by 1.210. Performed By: #### L TSH #### [facility] [address] [place] [address] Acetaminophenon 10-09-2019 Acetaminophen [Mass/Vol] <1 Low 10-30 [facility] Comment on above: Performed By: #### L TSH #### [place] [address] Alcohol, Bloodon 10-09-2019 Alcohol, Blood <10 Normal <10 [facility] Comment on above: Performed By: #### L TSH #### [place] [address] Comprehensive Panelon 2019 Albumin [Mass/Vol] 3.3 g/dL Low 3.4-5.0 [facility] Comment on above: Performed By: #### L CBCD #### [place] [address] ALP [Catalytic activity/Vol] 306 U/L High 50-130 [facility] Comment on above: Performed By: #### L CBCD #### [place] [address] ALT-SGPT Blood 296 U/L High 14-63 [facility] Comment on above: Performed By: #### L CBCD #### [place] [address] Anion gap [Moles/Vol] 13 mmol/L Normal 8-20 [facility] Comment on above: Performed By: #### L CBCD #### [place] [address] AST-SGOT Blood 209 U/L High 15-37 [facility] Comment on above: Performed By: #### L CBCD #### [place] [address] Bilirubin Ql (U) 4.7 mg/dL High 0.2-1.0 [facility] Comment on above: Performed By: #### L CBCD #### [facility] [address] [place], [place] [address] Calcium [Mass/Vol] 8.8 mg/dL Normal 8.5-10.1 [facility] Comment on above: Performed By: #### L CBCD #### [facility] [address] [place], [place] [address] CO2 Blood 29 mEq/L Normal 21-32 [facility] Comment on above: Performed By: #### L CBCD #### [facility] [address] [place], [place] [address] Creatinine [Mass/Vol] 0.87 mg/dL Normal 0.51-0.95 [facility] Comment on above: Result Comment: Use of this assay is not recommended for patients undergoing treatment with phenindione, due to the potential for falsely depressed results. Performed By: #### L CBCD #### [facility] [address] [place], [place] [address] Glucose [Mass/Vol] 101 mg/dL High 70-99 [facility] Comment on above: Performed By: #### L CBCD #### [facility] [address] [place], [place] [address] Protein [Mass/Vol] 7.6 g/dL Normal 6.4-8.2 [facility] Comment on above: Performed By: #### L CBCD #### [address] [address] Urea nitrogen [Mass/Vol] 7 mg/dL Normal 7-18 [facility] Comment on above: Performed By: #### L CBCD #### [facility] [address] [place], [place] [address] Urea nitrogen/Creatinine [Mass ratio] 8 mg/mg Low 10-20 [facility] Comment on above: Performed By: #### L CBCD #### [address] [address] Chloride [Moles/Vol] 98 mmol/L Normal 98-109 [facility] Comment on above: Result Comment: Test ing performed on an [employer] i-STAT. Performed By: #### L CBCD #### [facility] [address] [place] [address] Potassium [Moles/Vol] 3.2 mmol/L Low 3.5-4.9 [facility] Comment on above: Result Comment: Test ing performed on an [employer] i-STAT. Performed By: #### L CBCD #### [place] [address] Sodium [Moles/Vol] 137 mmol/L Low 138-146 [facility] Comment on above: Result Comment: Test ing performed on an [employer] i-STAT. Performed By: #### L CBCD #### [place] [address] Cult Urineon 10-09-2019 Cult Urine Test performed at [facility] ORGANISM: Mixed Ck (ID: 10) 50,000-99,000 CFU/ml Three or more organisms, no one type predominant, suggesting contamination during collection. Recollect if clincally indicated. Normal [facility] Comment on above: Performed By: #### L TSH #### [place] [address] HIV Screenon 10-09-2019 HIV Screen Nonreactive Normal Nonreactive [facility] Comment on above: Performed By: #### L CBCD #### [place] [address] Hemogram/Manual Diffon 10-09 Abs. Baso 0.00 thou/cmm Normal 0.00-0.08 [facility] Comment on above: Performed By: #### L CBCD #### [place] [address] Abs. Eosin 0.21 thou/cmm Normal 0.00-0.41 [facility] Comment on above: Performed By: #### L CBCD #### [place] [address] Abs. Lymph 8.72 thou/cmm High 1.50-3.65 [facility] Comment on above: Performed By: #### L CBCD #### [address] [address] Abs. Traill 0.42 thou/cmm Normal 0.20-1.00 [facility] Comment on above: Performed By: #### L CBCD #### [facility] [address] [place] [address] Abs. Neut (ANC) 1.15 thou/cmm Low 3.00-5.67 [facility] Comment on above: Performed By: #### L CBCD #### [place] [address] Anisocytosis Ql (Bld) Few Normal [facility] Comment on above: Performed By: #### L CBCD #### [place] [address] Atypical Lymph 30.0 % Normal [facility] Comment on above: Performed By: #### L CBCD #### [place] [address] Basophil 0.0 % Normal [facility] Comment on above: Performed By: #### L CBCD #### [place] [address] Eosinophil 2.0 % Normal [facility] Comment on above: Performed By: #### L CBCD #### [place] [address] Lymphocyte 53.0 % Normal [facility] Comment on above: Performed By: #### L CBCD #### [place] [address] Monocyte 4.0 % Normal [facility] Comment on above: Performed By: #### L CBCD #### [place] [address] Platelets (Bld) [#/Vol] Low Normal [facility] Comment on above: Performed By: #### L CBCD #### [place] [address] Seg Neutrophil 11.0 % Normal [facility] Comment on above: Performed By: #### L CBCD #### [place] [address] Diff Type Manual Diff Normal [facility] Comment on above: Performed By: #### L CBCD #### [facility] [address] [place], [place] [address] Erythrocyte distribution width (RBC) [Ratio] 14.3 % Normal 11.5-15.9 [facility] Comment on above: Performed By: #### L CBCD #### [place] [address] Hematocrit (Bld) [Volume fraction] 42.2 % Normal 37.0-47.0 [facility] Comment on above: Performed By: #### L CBCD #### [place] [address] Hemoglobin (Bld) [Mass/Vol] 13.4 g/dL Normal 12.0-16.0 [facility] Comment on above: Performed By: #### L CBCD #### [place] [address] MCH (RBC) [Entitic mass] 27.1 pg Normal 27.0-31.0 [facility] Comment on above: Performed By: #### L CBCD #### [place] [address] MCHC (RBC) [Mass/Vol] 31.8 % Low 32.0-36.0 [facility] Comment on above: Performed By: #### L CBCD #### [place] [address] MCV (RBC) [Entitic vol] 85.4 fl Normal 81.0-99.0 [facility] Comment on above: Performed By: #### L CBCD #### [place] [address] Platelet mean volume (Bld) [Entitic vol] 10.6 fl High 7.1-10.5 [facility] Comment on above: Performed By: #### L CBCD #### [place] [address] Platelets (Bld) [#/Vol] 128 thou/cmm Low 150-400 [facility] Comment on above: Performed By: #### L CBCD #### [facility] [address] [place] [address] RBC (Bld) [#/Vol] 4.94 mil/cmm Normal 4.20-5.40 [facility] Comment on above: Performed By: #### L CBCD #### [facility] [address] [place] [address] WBC (Bld) [#/Vol] 10.5 thou/cmm Normal 4.8-10.5 [facility] Comment on above: Performed By: #### L CBCD #### [place] [address] Hep. B Surface Agon 10-09-19 20 Hep.B Surface Ag Negative Normal Negative [facility] Comment on above: Performed By: #### L CBCD #### [place] [address] Hepatitis C Antibodyon 10-09 Hepatitis C Ab Negative Normal Negative [facility] Comment on above: Performed By: #### L CBCD #### [place] [address] IgAon 10-09-2019 IgA [Mass/Vol] 244 mg/dL Normal 70-400 [facility] Comment on above: Performed By: #### I GA ####[place] [address] IgGon 10-09-2019 IgG [Mass/Vol] 1610 mg/dL High 700-1600 [facility] Comment on above: Performed By: #### I GG ####[place] [address] IgMon 10-09-2019 IgM [Mass/Vol] 298 mg/dL High 40-230 [facility] Comment on above: Performed By: #### I GM ####[place] [address] Lactic acidon 10-09-2019 Lactate [Moles/Vol] 1.7 mmol/L Normal 0.4-2.0 [facility] Comment on above: Performed By: #### L CBCD #### [place] [address] [place] [address] Lipase Bloodon 10-09-2019 Lipase Blood 127 U/L Normal 73-393 [facility] Comment on above: Performed By: #### L TSH #### [facility] [address] [place] [address] MDRD eGFRon 10-09-2019 GFR/1.73 sq M predicted among non-blacks MDRD (S/P/Bld) [Vol rate/Area] mL/min/{1.73_m2} Normal >60mL/min/1.73m 2 [facility] Comment on above: Result Comment: If t he patient is , multiply the result by 1.210. Performed By: #### L TSH #### [place] [address] Misc. Teston 10-09-2019 [facility] Order Code HIRAM Normal [facility] Comment on above: Performed By: #### G OX ####[place] [address] Test Name Mannose Binding Normal [facility] Comment on above: Performed By: #### G OX ####[place] [address] Monoteston 10-09-2019 Monotest Positive Abnormal Negative [facility] Comment on above: Performed By: #### L TSH #### [place] [address] Throat Rapid Grp A Strepon 0 10-09-2019 S. pyogenes Ag IA Ql (Unsp spec) see below Normal Negative [facility] Comment on above: Result Comment: Posi tive for group A Streptococcus antigen. Performed By: #### L CBCD #### [place] [address] US ABD RIGHT UPPER QUADRANTo n 10-09-2019 US ABD RIGHT UPPER QUADRANT * * *Final Report* * * DATE OF EXAM: Oct 09 2019 6:40PM LDU 1032 - US ABD RIGHT UPPER QUADRANT / PROCEDURE REASON: RUQ abdominal pain * * * * Physician Interpretation * * * * EXAMINATION: RIGHT UPPER QUADRANT ULTRASOUND, 10/09/2019 CLINICAL HISTORY: Right upper quadrant abdominal pain TECHNIQUE: Sonography of the right upper quadrant was performed. Images were obtained and stored in a permanent archive. MQ: URUQ_1 COMPARISON: None. RESULT: Pancreas: Visualized head and proximal body appear normal. Distal body and tail obscured by bowel. Liver: Normal size. Echotexture: Normal, homogeneous. Echogenicity: Normal Surface contour: Smooth Lesions: None. Biliary: No intrahepatic biliary duct dilation. CBD: 0.3 cm at the hilum. Gallbladder: Contracted. -Contents: No cholelithiasis -Wall: Relative thickening, 0.6 cm, likely artifact of contraction. -Other: No pericholecystic fluid. Right Kidney: Normal size and appearance, 10.3 cm length. No hydronephrosis. Ascites: None. IMPRESSION: 1. Relative thickening of the gallbladder wall, likely artifact of contracted state. Clinical follow-up suggested. No gallstones, pericholecystic fluid, or duct dilatation. 2. No acute changes seen in the right upper quadrant abdomen. Evaluation of pancreas was limited by bowel gas. Chaperon: [facility] Transcribe Date/Time: Oct 09 2019 6:44P Dictated by : RUPESH JARAMILLO MD This examination was interpreted and the report reviewed and electronically signed by: RUPESH JARAMILLO MD on Oct 09 2019 6:50PM EST Normal [facility] Urinalysis Routineon 020 Appearance (U) 2+ (SLT CLOUDY) Normal [facility] Comment on above: Performed By: #### L CBCD #### [address] [address] Bacteria LM.HPF (Urine sed) [#/Area] MODERATE Abnormal None [facility] Comment on above: Performed By: #### L CBCD #### [facility] [address] [place], [place] [address] Bilirubin Urine see below Normal Negative [facility] Comment on above: Result Comment: Dete cted (Unable to confirm). Performed By: #### L CBCD #### [address] [address] Color (U) DARK YELLOW Normal [facility] Comment on above: Performed By: #### L CBCD #### [address], [place] [address] Comment Urines See Below Normal [facility] Comment on above: Result Comment: Volu me of urine <10 ml. Interpret microscopic result with caution. Performed By: #### L CBCD #### [facility] [address] [place] [address] Ep Cells Urine 21-35 Abnormal 0-5 [facility] Comment on above: Performed By: #### L CBCD #### [place] [address] Glucose Ql (U) Negative Normal Negative [facility] Comment on above: Performed By: #### L CBCD #### [place] [address] Hemoglobin,Urine 2+ Abnormal Negative [facility] Comment on above: Performed By: #### L CBCD #### [place] [address] Ketone Urine TRACE Abnormal Negative [facility] Comment on above: Performed By: #### L CBCD #### [place] [address] Leukocytes Esterase 2+ Abnormal Negative [facility] Comment on above: Performed By: #### L CBCD #### [place] [address] Mucus Threads FEW Normal None [facility] Comment on above: Performed By: #### L CBCD #### [place] [address] Nitrites Urine Negative Normal Negative [facility] Comment on above: Performed By: #### L CBCD #### [place] [address] pH (U) 5.5 [pH] Normal 5.0-8.0 [facility] Comment on above: Performed By: #### L CBCD #### [place] [address] Protein (U) [Mass/Vol] 1+ Abnormal Negative [facility] Comment on above: Performed By: #### L CBCD #### [place] [address] RBC LM.HPF (Urine sed) [#/Area] 0-3 Normal 0-3 [facility] Comment on above: Performed By: #### L CBCD #### [facility] [address] [place] [address] Urobilinogen,Ur 4.0 EU/dL High 0.2-1.0 [facility] Comment on above: Performed By: #### L CBCD #### [facility] [address] [place] [address] WBC LM.HPF (Urine sed) [#/Area] 21-35 Abnormal 0-5 [facility] Comment on above: Performed By: #### L CBCD #### [facility] [address] [place] [address] Urine Drug Screenon 10-09-19 20 Urine Amphetamine Non-Detected Normal Non-Detected [facility] Comment on above: Performed By: #### L CBCD #### [place] [address] Urine Barbiturates Non-Detected Normal Non-Detected [facility] Comment on above: Performed By: #### L CBCD #### [place] [address] Urine Benzodiazepine Non-Detected Normal Non-Detected [facility] Comment on above: Performed By: #### L CBCD #### [place] [address] Urine Buprenorphine Non-Detected Normal Non-Detected A [facility] Comment on above: Result Comment: Urin e Drug Cutoff Levels Urine Amphetamine 500 ng/mL Urine Barbituate 200 ng/mL Urine Benzodiazepines 150 ng/mL Urine Cocaine 150 ng/mL Urine Methamphetamines 500 ng/mL Urine Methadone 200 ng/mL Urine Opiates 100 ng/mL Urine Oxycodone 100 ng/mL Urine Phencyclidine (PCP) 25 ng/mL Urine Propoxyphene 300 ng/mL Urine Tricyclics 300 ng/mL Urine THC 50 ng/mL Urine Buprenorphine 10 ng/mL The results of these analytes are unconfirmed and reported qualitatively as detected or non-detected relative to the cutoff value. Detected results indicate the sample is likely to contain the analyte. Non-detected results indicate that either the sample does not contain the analyte or it is present in concentrations below the cutoff level. This drug screen should be used for medical diagnostic purposes only. Testing Performed at: [address] [address] Performed By: #### L CBCD #### [facility] [address] [place] [address] Urine Cocaine Non-Detected Normal Non-Detected [facility] Comment on above: Performed By: #### L CBCD #### [facility] [address] [place] [address] Urine Methadone Non-Detected Normal Non-Detected [facility] Comment on above: Performed By: #### L CBCD #### [facility] [address] [place] [address] Urine Methamphetamine Non-Detected Normal Non-Detected [facility] Comment on above: Performed By: #### L CBCD #### [place] [address] Urine Opiate Non-Detected Normal Non-Detected [facility] Comment on above: Performed By: #### L CBCD #### [facility] [address] [place] [address] Urine Oxycodone Non-Detected Normal Non-Detected [facility] Comment on above: Performed By: #### L CBCD #### [place] [address] Urine PCP Non-Detected Normal Non-Detected [facility] Comment on above: Performed By: #### L CBCD #### [place] [address] Urine Propoxyphene Non-Detected Normal Non-Detected [facility] Comment on above: Performed By: #### L CBCD #### [facility] [address] [place] [address] Urine THC Non-Detected Normal Non-Detected [facility] Comment on above: Performed By: #### L CBCD #### [place] [address] Urine Tricyclics Non-Detected Normal Non-Detected [facility] Comment on above: Performed By: #### L CBCD #### [facility] [address] [place] [address] Urine HCG, Qual.on 0 Beta HCG ( test) Ql (U) Negative Normal Negative [facility] Comment on above: Performed By: #### L CBCD #### [facility] [address] [place] [address] Specific [place], Ur 1.020 Normal 1.005-1.030 [facility] Comment on above: Performed By: #### L CBCD #### [facility] [address] [place] [address] Hepatic Panelon 10-08-2019 Albumin [Mass/Vol] 3.6 g/dL Normal 3.4-5.0 [facility] Comment on above: Performed By: #### L HEPA ####[place] [address] Albumin/Globulin [Mass ratio] 0.8 {ratio} Low 0.9-2.4 [facility] Comment on above: Performed By: #### L HEPA ####[place] [address] ALP [Catalytic activity/Vol] 295 U/L High 50-130 [facility] Comment on above: Performed By: #### L HEPA ####[place] [address] ALT-SGPT Blood 261 U/L High 14-63 [facility] Comment on above: Performed By: #### L HEPA ####[facility] [place] [address] AST-SGOT Blood 179 U/L High 15-37 [facility] Comment on above: Performed By: #### L HEPA ####[place] [address] Bilirubin Ql (U) 7.1 mg/dL High 0.2-1.0 [facility] Comment on above: Performed By: #### L HEPA ####[place] [address] Bilirubin.direct [Mass/Vol] 5.68 mg/dL High 0.00-0.20 [facility] Comment on above: Performed By: #### L HEPA ####[facility] [place], [place] [address] Bilirubin.indirect (Body fld) [Mass/Vol] 1.5 mg/dL High 0.0-0.7 [facility] Comment on above: Performed By: #### L HEPA ####[facility] [place], [place] [address] Protein [Mass/Vol] 8.1 g/dL Normal 6.4-8.2 [facility] Comment on above: Performed By: #### L HEPA ####[facility] [place], [place] [address] XR CHEST 2V FRONTAL/LATon XR CHEST 2V FRONTAL/LAT * * *Final Report* * * DATE OF EXAM: Oct 08 2019 5:07PM LDX 5291 - XR CHEST 2V FRONTAL/LAT / PROCEDURE REASON: immunodeficiency * * * * Physician Interpretation * * * * EXAMINATION: CHEST RADIOGRAPH (2 VIEW FRONTAL & LATERAL) CLINICAL HISTORY: immunodeficiency MQ: XC2_5 Comparison: 08/30/2019 RESULT: Lines, tubes, and devices: None. Lungs and pleura: No consolidation. No pleural effusion. No pneumothorax. Cardiomediastinal silhouette: Normal cardiomediastinal silhouette. Other: No bony abnormalities. IMPRESSION: No acute radiographic abnormality. [facility] Transcribe Date/Time: Oct 08 2019 5:08P Dictated by : VALENTINO MARKS MD This examination was interpreted and the report reviewed and electronically signed by: VALENTINO MARKS MD on Oct 08 2019 5:09PM EST Normal [facility] XR HIP 3V PELV+ AP/LAT RTon 10-04-2019 XR HIP 3V PELV+ AP/LAT RT * * *Final Report* * * DATE OF EXAM: Oct 04 2019 12:24PM LDX 5352 - XR HIP 3V PELV+ AP/LAT RT / PROCEDURE REASON: Right hip pain * * * * Physician Interpretation * * * * EXAM TITLE: XR HIP 3V PELV+ AP/LAT RT DATE: 10/04/2019 INDICATION: Right hip pain COMPARISON: None. FINDINGS: There is no fracture or dislocation. Joint spaces are maintained. Soft tissues are normal. IMPRESSION: Within normal limits. Chaperon: [facility] Transcribe Date/Time: Oct 04 2019 12:43P Dictated by : NOLAN CHILD MD This examination was interpreted and the report reviewed and electronically signed by: NOLAN CHILD MD on Oct 04 2019 12:44PM EST Normal [facility] XR CHEST 2V FRONTAL/LATon XR CHEST 2V FRONTAL/LAT * * *Final Report* * * DATE OF EXAM: Aug 30 2019 10:39AM LDX 5291 - XR CHEST 2V FRONTAL/LAT / PROCEDURE REASON: multiple diagnoses * * * * Physician Interpretation * * * * EXAMINATION: CHEST RADIOGRAPH (2 VIEW FRONTAL & LATERAL) CLINICAL HISTORY: Persistent cough for 3 weeks or longer SOB (shortness of breath) MQ: XC2_5 Comparison: XR 2 view chest 08/19/2019. RESULT: Lines, tubes, and devices: None. Lungs and pleura: No consolidation. No pleural effusion. No pneumothorax. Cardiomediastinal silhouette: Normal cardiomediastinal silhouette. Other: No bony abnormalities. IMPRESSION: No acute radiographic abnormality. Chaperon: [facility] Transcribe Date/Time: Aug 30 2019 10:51A Dictated by : JONATHAN FLAHERTY DO This examination was interpreted and the report reviewed and electronically signed by: AMEENA CARD MD on Aug 30 2019 10:54AM EST Normal [facility] XR CHEST 2V FRONTAL/LATon XR CHEST 2V FRONTAL/LAT * * *Final Report* * * DATE OF EXAM: Aug 19 2019 8:01AM LDX 5291 - XR CHEST 2V FRONTAL/LAT / PROCEDURE REASON: multiple diagnoses * * * * Physician Interpretation * * * * EXAM/TECHNIQUE: XR CHEST 2V FRONTAL/LAT REASON FOR EXAM: Persistent cough for 3 weeks or longer Acute effusion of left ear Otalgia, left ;Pt. c/o persistant cough, wheezing, and congestion for the past 3 months, states no improvements w/antibiotics COMPARISON: Chest radiograph, 11/01/2017 FINDINGS: Lines, tubes, and devices: None. Cardiomediastinal silhouette: Within normal limits. Lungs and pleura: Haziness overlying the lung bases is likely secondary to soft tissue summation. Within this limitation, no pleural effusion, pneumothorax, or focal consolidation. Mild peribronchial thickening. Suspected bibasilar atelectasis. Other: No acute osseous finding. IMPRESSION: Peribronchial thickening. No focal parenchymal consolidation. ==== Chaperon: [facility] Transcribe Date/Time: Aug 19 2019 8:11A Dictated by : MARSHALL SUAZO DO This examination was interpreted and the report reviewed and electronically signed by: MARSHALL SUAZO DO on Aug 19 2019 8:13AM EST Normal [facility] JESUS by IFA Scrn w [employer] JESUS by IFA Scrn w [employer] SEE BELOW Normal [facility] Comment on above: Result Comment: JESUS Positive AB NEGAT Normal range : negative at <1:80 serum dilution. JESUS Titer 1:320 AB NEGAT JESUS Pattern SEE BELOW Atypical speckled Performing Laboratory: [facility] [address] [place] [address] Performed By: #### A NAX ####[place] [address] Thyro. Peroxidase Abon 08-04 TPO Ab Qn 32.3 IU/ml Normal 0.0-60.0 [facility] Comment on above: Performed By: #### T PAB #### [place] [address] CRPon 08-02-2019 CRP [Mass/Vol] 0.96 mg/dL High 0.00-0.30 [facility] Comment on above: Performed By: #### C RP3 #### [place] [address] Comprehensive Panelon 2018 ALP [Catalytic activity/Vol] 90 U/L Normal 45-117 [facility] Comment on above: Performed By: #### P 14 #### [place] [address] Bilirubin [Mass/Vol] 0.3 mg/dL Normal 0.2-1.0 [facility] Comment on above: Performed By: #### P 14 #### [facility] [address] [place], [place] [address] Protein [Mass/Vol] 8.1 g/dL Normal 6.4-8.2 [facility] Comment on above: Performed By: #### P 14 #### [facility] [address] [place], [place] [address] ALT [Catalytic activity/Vol] 39 U/L Normal 12-78 [facility] Comment on above: Performed By: #### P 14 #### [facility] [address] [place], [place] [address] AST [Catalytic activity/Vol] 19 U/L Normal 15-37 [facility] Comment on above: Performed By: #### P 14 #### [facility] [address] [place], [place] [address] Creatinine [Mass/Vol] 0.71 mg/dL Normal 0.51-0.95 [facility] Comment on above: Performed By: #### P 14 #### [facility] [address] [place], [place] [address] Albumin [Mass/Vol] 3.9 g/dL Normal 3.4-5.0 [facility] Comment on above: Performed By: #### P 14 #### [facility] [address] [place], [place] [address] Urea nitrogen [Mass/Vol] 11 mg/dL Normal 7-18 [facility] Comment on above: Performed By: #### P 14 #### [facility] [address] [place], [place] [address] Anion gap [Moles/Vol] 9 mmol/L Normal 8-16 [facility] Comment on above: Performed By: #### P 14 #### [facility] [address] [place], [place] [address] Calcium [Mass/Vol] 9.3 mg/dL Normal 8.5-10.1 [facility] Comment on above: Performed By: #### P 14 #### [facility] [address] [place], [place] [address] CO2 [Moles/Vol] 27 mmol/L Normal 21-32 [facility] Comment on above: Performed By: #### P 14 #### [facility] [address] [place] [address] Glucose [Mass/Vol] 86 mg/dL Normal 70-99 [facility] Comment on above: Performed By: #### P 14 #### [facility] [address] [place] [address] Chloride [Moles/Vol] 105 mmol/L Normal 98-107 [facility] Comment on above: Performed By: #### P 14 #### [facility] [address] [place] [address] Potassium [Moles/Vol] 3.9 mmol/L Normal 3.5-5.1 [facility] Comment on above: Performed By: #### P 14 #### [facility] [address] [place] [address] Sodium [Moles/Vol] 137 mmol/L Normal 136-145 [facility] Comment on above: Performed By: #### P 14 #### [facility] [address] [place] [address] Free Thyroxineon 08-02-2019 Free T4 [Mass/Vol] 0.82 ng/dL Normal 0.44-1.61 [facility] Comment on above: Performed By: #### L FT4 #### [place] [address] Hemogram/Diffon 08-02-2019 Abs. Baso 0.04 thou/cmm Normal 0.00-0.08 [facility] Comment on above: Performed By: #### L CBCD #### [place] [address] Abs. Traill 0.48 thou/cmm Normal 0.20-1.00 [facility] Comment on above: Performed By: #### L CBCD #### [place] [address] Abs. Neut (ANC) 4.98 thou/cmm Normal 3.00-5.67 [facility] Comment on above: Performed By: #### L CBCD #### [place] [address] Basophils/100 WBC (Bld) 0.5 % Normal [facility] Comment on above: Performed By: #### L CBCD #### [facility] [address] [place], [place] [address] Eosinophils (Bld) [#/Vol] 0.20 thou/cmm Normal 0.00-0.41 [facility] Comment on above: Performed By: #### L CBCD #### [facility] [address] [place], [place] [address] Eosinophils/100 WBC (Bld) 2.3 % Normal [facility] Comment on above: Performed By: #### L CBCD #### [address] [address] Erythrocyte distribution width (RBC) [Ratio] 13.4 % Normal 11.5-15.9 [facility] Comment on above: Performed By: #### L CBCD #### [address] [address] Hematocrit (Bld) [Volume fraction] 42.2 % Normal 37.0-47.0 [facility] Comment on above: Performed By: #### L CBCD #### [address] [address] Hemoglobin (Bld) [Mass/Vol] 13.5 g/dL Normal 12.0-16.0 [facility] Comment on above: Performed By: #### L CBCD #### [address] [address] Lymphocytes (Bld) [#/Vol] 2.80 thou/cmm Normal 1.50-3.65 [facility] Comment on above: Performed By: #### L CBCD #### [address] [address] Lymphocytes/100 WBC (Bld) 32.9 % Normal [facility] Comment on above: Performed By: #### L CBCD #### [facility] [address] [place], [place] [address] MCH (RBC) [Entitic mass] 27.6 pg Normal 27.0-31.0 [facility] Comment on above: Performed By: #### L CBCD #### [facility] [address] [place], [place] [address] MCHC (RBC) [Mass/Vol] 32.0 % Normal 32.0-36.0 [facility] Comment on above: Performed By: #### L CBCD #### [facility] [address] [place], [place] [address] MCV (RBC) [Entitic vol] 86.1 fL Normal 81.0-99.0 [facility] Comment on above: Performed By: #### L CBCD #### [facility] [address] [place] [address] Monocytes/100 WBC (Bld) 5.6 % Normal [facility] Comment on above: Performed By: #### L CBCD #### [facility] [address] [place] [address] Platelet mean volume (Bld) [Entitic vol] 9.2 fL Normal 7.1-10.5 [facility] Comment on above: Performed By: #### L CBCD #### [facility] [address] [place] [address] Platelets (Bld) [#/Vol] 361 thou/cmm Normal 150-400 [facility] [facility] Comment [facility]: Performed By: #### L CBCD #### [facility] [address] [address] RBC (Bld) [#/Vol] 4.90 mil/cmm Normal 4.20-5.40 [facility] Comment on above: Performed By: #### L CBCD #### [facility] [address] [address] Seg Neutrophil 58.7 % Normal [facility] Comment on above: Performed By: #### L CBCD #### [facility] [address] [address] WBC (Bld) [#/Vol] 8.5 thou/cmm Normal 4.8-10.5 [facility] Comment on above: Performed By: #### L CBCD #### [place] [address] MDRD GFRon 08-02-2019 GFR/1.73 sq M predicted among non-blacks MDRD (S/P/Bld) [Vol rate/Area] mL/min/{1.73_m2} Normal >60mL/min/1.73m 2 [facility] Comment on above: Result Comment: If t he patient is , multiply the result by 1.210. Performed By: #### G FR #### [facility] [address] [address] Sed Rateon 08-02-2019 Sed Rate 21 mm/hr High 0-20 [facility] Comment on above: Performed By: #### L ESR #### [facility] [address] [address] TSHon 08-02-2019 TSH Qn 2.24 uIU/mL Normal 0.34-4.82 [facility] Comment on above: Performed By: #### L TSH #### [place] [address] XR ELBOW 3V AP/LAT/OTHER RTo n 06-26-2019 XR ELBOW 3V AP/LAT/OTHER RT * * *Final Report* * * DATE OF EXAM: Jun 26 2019 11:48AM LDX 5325 - XR ELBOW 3V AP/LAT/OTHER RT / PROCEDURE REASON: Elbow pain, initial exam * * * * Physician Interpretation * * * * THREE VIEWS, RIGHT ELBOW DATE: 06/26/2019 11:48 AM HISTORY: Elbow pain. COMPARISON: None ENCOUNTER: Not applicable TECHNIQUE: Three radiographs of the right elbow including AP, lateral and oblique views were obtained. RESULT: No acute fracture or dislocation. Normal anatomic alignment. Joint spaces are maintained. No suspicious osseous lesions. Soft tissues grossly unremarkable. IMPRESSION: No acute fracture or dislocation. Chaperon: PSCB Transcribe Date/Time: Jun 26 2019 11:57A Dictated by : LEONID MEDRANO MD This examination was interpreted and the report reviewed and electronically signed by: LEONID MEDRANO MD on Jun 26 2019 11:58AM EST Normal [facility] No Panel Information Group B Streptococcus Culture Group B Beta Streptococcus is not isolated. [facility] Work Phone: Vital Signs Date Time Vital Sign Value Performing Clinician Facility 04-28-2025 14:28-0400 Body mass index (BMI) [Ratio] 39.93 kg/m2 Sarah Youngblood MD Work Phone: [facility] 04-28-2025 14:28-0400 Body weight 117.48 kg Sarah Youngblood MD Work Phone: [facility] 04-28-2025 14:28-0400 Diastolic blood pressure 83 mm[Hg] Sarah Youngblood MD Work Phone: [facility] 04-28-2025 14:28-0400 Systolic blood pressure 115 mm[Hg] Sarah Youngblood MD Work Phone: [facility] 04-18-2025 14:33-0400 Body mass index (BMI) [Ratio] 39.31 kg/m2 Iveth Mccain MD Work Phone: [facility] 04-18-2025 14:33-0400 Body weight 115.67 kg Iveth Mccain MD Work Phone: [facility] 04-18-2025 14:33-0400 Diastolic blood pressure 78 mm[Hg] Iveth Mccain MD Work Phone: [facility] 04-18-2025 14:33-0400 Systolic blood pressure 110 mm[Hg] Iveth Mccain MD Work Phone: [facility] 04-04-2025 09:34-0400 Body mass index (BMI) [Ratio] 38.08 kg/m2 Sarah Youngblood MD Work Phone: [facility] 04-04-2025 09:34-0400 Body weight 112.04 kg Sarah Youngblood MD Work Phone: [facility] 04-04-2025 09:34-0400 Diastolic blood pressure 70 mm[Hg] Sarah Youngblood MD Work Phone: [facility] 04-04-2025 09:34-0400 Systolic blood pressure 112 mm[Hg] Sarah Youngblood MD Work Phone: [facility] 03-20-2025 10:01-0400 Body mass index (BMI) [Ratio] 37.15 kg/m2 Ny Ulloa MD Work Phone: [facility] 03-20-2025 10:01-0400 Body weight 109.32 kg Ny Ulloa MD Work Phone: [facility] 03-20-2025 10:01-0400 Diastolic blood pressure 70 mm[Hg] Ny Ulloa MD Work Phone: [facility] 03-20-2025 10:01-0400 Systolic blood pressure 122 mm[Hg] Ny Ulloa MD Work Phone: [facility] 03-07-2025 13:51-0400 Body mass index (BMI) [Ratio] 37.12 kg/m2 Sarah Youngblood MD Work Phone: [facility] 03-07-2025 13:51-0400 Body weight 109.23 kg Sarah Youngblood MD Work Phone: [facility] 03-07-2025 13:51-0400 Diastolic blood pressure 70 mm[Hg] Sarah Youngblood MD Work Phone: [facility] 03-07-2025 13:51-0400 Systolic blood pressure 118 mm[Hg] Sarah Youngblood MD Work Phone: [facility] 02-21-2025 11:08-0400 Body mass index (BMI) [Ratio] 36.54 kg/m2 Mayelin Duran FUSING LINE INSPECTOR.CNM Work Phone: [facility] 02-21-2025 11:08-0400 Body weight 107.5 kg Mayelin Plotracquel FUSING LINE INSPECTOR.CNM Work Phone: [facility] 02-21-2025 11:08-0400 Diastolic blood pressure 68 mm[Hg] Mayelin Plotracquel FUSING LINE INSPECTOR.CNM Work Phone: [facility] 02-21-2025 11:08-0400 Systolic blood pressure 110 mm[Hg] Mayelin Plotracquel FUSING LINE INSPECTOR.CNM Work Phone: [facility] 01-24-2025 14:13-0400 Body mass index (BMI) [Ratio] 36.38 kg/m2 Ignacia Lyon FUSING LINE INSPECTOR.CNM Work Phone: [facility] 01-24-2025 14:13-0400 Body weight 107.05 kg Ignacia Lyon FUSING LINE INSPECTOR.CNM Work Phone: [facility] 01-24-2025 14:13-0400 Diastolic blood pressure 76 mm[Hg] Ignacia Lyon FUSING LINE INSPECTOR.CNM Work Phone: [facility] 01-24-2025 14:13-0400 Systolic blood pressure 116 mm[Hg] Ignacia Lyon FUSING LINE INSPECTOR.CNM Work Phone: [facility] 12-27-2024 14:05-0400 Body mass index (BMI) [Ratio] 36.08 kg/m2 Mayelin Duran FUSING LINE INSPECTOR.CNM Work Phone: [facility] 12-27-2024 14:05-0400 Body weight 106.14 kg Mayelin Josephineracquel FUSING LINE INSPECTOR.CNM Work Phone: [facility] 12-27-2024 14:05-0400 Diastolic blood pressure 62 mm[Hg] Mayelin Josephineracquel FUSING LINE INSPECTOR.CNM Work Phone: [facility] 12-27-2024 14:05-0400 Systolic blood pressure 110 mm[Hg] Mayelin Duran FUSING LINE INSPECTOR.CNM Work Phone: [facility] 12-04-2024 13:09-0400 Body mass index (BMI) [Ratio] 36.1 kg/m2 Joseph Alainz FUSING LINE INSPECTOR.CANDY CUTTER MACHINE Work Phone: [facility] 12-04-2024 13:09-0400 Body temperature 98.91 [degF] Joseph Alaniz FUSING LINE INSPECTOR.CANDY CUTTER MACHINE Work Phone: [facility] 12-04-2024 13:09-0400 Body weight 106.2 kg Joseph Alaniz FUSING LINE INSPECTOR.CANDY CUTTER MACHINE Work Phone: [facility] 12-04-2024 13:09-0400 Diastolic blood pressure 76 mm[Hg] Joseph Alaniz FUSING LINE INSPECTOR.CANDY CUTTER MACHINE Work Phone: [facility] 12-04-2024 13:09-0400 Heart rate 93 /min Joseph Alaniz FUSING LINE INSPECTOR.CANDY CUTTER MACHINE Work Phone: [facility] 12-04-2024 13:09-0400 Respiratory rate 18 /min Joseph Alaniz FUSING LINE INSPECTOR.CANDY CUTTER MACHINE Work Phone: [facility] 12-04-2024 13:09-0400 SaO2% (BldA) [Mass fraction] 98 % Joseph Alaniz FUSING LINE INSPECTOR.CANDY CUTTER MACHINE Work Phone: [facility] 12-04-2024 13:09-0400 Systolic blood pressure 124 mm[Hg] Joseph Alaniz FUSING LINE INSPECTOR.CANDY CUTTER MACHINE Work Phone: [facility] 11-28-2024 13:16-0400 Body mass index (BMI) [Ratio] 36.14 kg/m2 Ten Wise MD Work Phone: [facility] 11-28-2024 13:16-0400 Body weight 106.32 kg Ten Wise MD Work Phone: [facility] 11-28-2024 13:16-0400 Diastolic blood pressure 80 mm[Hg] Ten Wise MD Work Phone: [facility] 11-28-2024 13:16-0400 Systolic blood pressure 120 mm[Hg] Ten Wise MD Work Phone: [facility] 11-06-2024 17:05-0500 Body mass index (BMI) [Ratio] 36.54 kg/m2 Ignacia Ribeiro FUSING LINE INSPECTOR.CANDY CUTTER MACHINE Work Phone: [facility] 11-06-2024 17:05-0500 Body temperature 98.4 [degF] Ignacia Ribeiro FUSING LINE INSPECTOR.CANDY CUTTER MACHINE Work Phone: [facility] 11-06-2024 17:05-0500 Body weight 107.5 kg Ignacia Ribeiro FUSING LINE INSPECTOR.CANDY CUTTER MACHINE Work Phone: [facility] 11-06-2024 17:05-0500 Diastolic blood pressure 78 mm[Hg] Ignacia Ribeiro FUSING LINE INSPECTOR.CANDY CUTTER MACHINE Work Phone: [facility] 11-06-2024 17:05-0500 Heart rate 88 /min Ignacia Ribeiro FUSING LINE INSPECTOR.CANDY CUTTER MACHINE Work Phone: [facility] 11-06-2024 17:05-0500 Respiratory rate 18 /min Ignacia Ribeiro FUSING LINE INSPECTOR.CANDY CUTTER MACHINE Work Phone: [facility] 11-06-2024 17:05-0500 SaO2% (BldA) [Mass fraction] 96 % Ignacia Ribeiro FUSING LINE INSPECTOR.CANDY CUTTER MACHINE Work Phone: [facility] 11-06-2024 17:05-0500 Systolic blood pressure 118 mm[Hg] Ignacia Ribeiro FUSING LINE INSPECTOR.CANDY CUTTER MACHINE Work Phone: [facility] 11-01-2024 10:15-0500 Body mass index (BMI) [Ratio] 36.85 kg/m2 Ny Ulloa MD Work Phone: [facility] 11-01-2024 10:15-0500 Body weight 108.41 kg Ny Ulloa MD Work Phone: [facility] 11-01-2024 10:15-0500 Diastolic blood pressure 76 mm[Hg] Ny Ulloa MD Work Phone: [facility] 11-01-2024 10:15-0500 Systolic blood pressure 116 mm[Hg] Ny Ulloa MD Work Phone: [facility] 09-25-2024 09:27-0500 Body height 171.5 cm Madi Moss FUSING LINE INSPECTOR.CANDY CUTTER MACHINE Work Phone: [facility] 09-25-2024 09:27-0500 Body mass index (BMI) [Ratio] 37.62 kg/m2 Madi Moss FUSING LINE INSPECTOR.CANDY CUTTER MACHINE Work Phone: [facility] 09-25-2024 09:27-0500 Body weight 110.68 kg Madi Moss FUSING LINE INSPECTOR.CANDY CUTTER MACHINE Work Phone: [facility] 09-25-2024 09:27-0500 Diastolic blood pressure 76 mm[Hg] Madi Haury FUSING LINE INSPECTOR.CANDY CUTTER MACHINE Work Phone: [facility] 09-25-2024 09:27-0500 Systolic blood pressure 120 mm[Hg] Madi Haury FUSING LINE INSPECTOR.CANDY CUTTER MACHINE Work Phone: [facility] 05-06-2024 16:02-0400 Diastolic blood pressure 74 mm[Hg] Madi Haury FUSING LINE INSPECTOR.CANDY CUTTER MACHINE Work Phone: [facility] 05-06-2024 16:02-0400 Systolic blood pressure 120 mm[Hg] Madi Haury FUSING LINE INSPECTOR.CANDY CUTTER MACHINE Work Phone: [facility] 05-06-2024 15:08-0400 Body mass index (BMI) [Ratio] 37.54 kg/m2 Madi Haury FUSING LINE INSPECTOR.CANDY CUTTER MACHINE Work Phone: [facility] 05-06-2024 15:08-0400 Body weight 109.77 kg Madi Haury FUSING LINE INSPECTOR.CANDY CUTTER MACHINE Work Phone: [facility] 05-06-2024 15:08-0400 Heart rate 82 /min Madi Haury FUSING LINE INSPECTOR.CANDY CUTTER MACHINE Work Phone: [facility] 05-06-2024 15:08-0400 Respiratory rate 16 /min Madi Haury FUSING LINE INSPECTOR.CANDY CUTTER MACHINE Work Phone: [facility] 05-06-2024 15:08-0400 SaO2% (BldA) [Mass fraction] 98 % Madi Haury FUSING LINE INSPECTOR.CANDY CUTTER MACHINE Work Phone: [facility] 05-03-2024 13:54-0400 Body height 171 cm Madi Haury FUSING LINE INSPECTOR.CANDY CUTTER MACHINE Work Phone: [facility] 05-03-2024 13:54-0400 Body mass index (BMI) [Ratio] 36.61 kg/m2 Madi Haury FUSING LINE INSPECTOR.CANDY CUTTER MACHINE Work Phone: [facility] 05-03-2024 13:54-0400 Body weight 107.05 kg Madi Haury FUSING LINE INSPECTOR.CANDY CUTTER MACHINE Work Phone: [facility] 05-03-2024 13:54-0400 Diastolic blood pressure 70 mm[Hg] Madi Rodrigueznichole ODOMN.CANDY CUTTER MACHINE Work Phone: [facility] 05-03-2024 13:54-0400 Heart rate 91 /min Madi Ajay GUERIN.CANDY CUTTER MACHINE Work Phone: [facility] 05-03-2024 13:54-0400 Respiratory rate 14 /min Madi Rodrigueznichole ODOMN.CANDY CUTTER MACHINE Work Phone: [facility] 05-03-2024 13:54-0400 SaO2% (BldA) [Mass fraction] 98 % Madi Rodrigueznichole GUERIN.CANDY CUTTER MACHINE Work Phone: [facility] 05-03-2024 13:54-0400 Systolic blood pressure 104 mm[Hg] Madi Ajay GUERIN.CANDY CUTTER MACHINE Work Phone: [facility] 01-28-2024 13:33-0400 Body mass index (BMI) [Ratio] 34.49 kg/m2 Sohpy Ulloa APRN.CANDY CUTTER MACHINE Work Phone: [facility] 01-28-2024 13:33-0400 Body temperature 97.3 [degF] Sophy Ulloa APRN.CANDY CUTTER MACHINE Work Phone: [facility] 01-28-2024 13:33-0400 Body weight 102.9 kg Sophy Ulloa APRN.CANDY CUTTER MACHINE Work Phone: [facility] 01-28-2024 13:33-0400 Diastolic blood pressure 72 mm[Hg] Sophy Ulloa APRN.CANDY CUTTER MACHINE Work Phone: [facility] 01-28-2024 13:33-0400 Heart rate 90 /min Sophy Ulloa APRN.CANDY CUTTER MACHINE Work Phone: [facility] 01-28-2024 13:33-0400 Respiratory rate 16 /min Sophy Ulloa APRN.CANDY CUTTER MACHINE Work Phone: [facility] 01-28-2024 13:33-0400 SaO2% (BldA) [Mass fraction] 98 % Sophy Ulloa APRN.CANDY CUTTER MACHINE Work Phone: [facility] 01-28-2024 13:33-0400 Systolic blood pressure 124 mm[Hg] Sophy Ulloa APRN.CANDY CUTTER MACHINE Work Phone: [facility] 10-30-2023 11:27-0500 Body temperature 98.29 [degF] Sophy Ulloa APRN.CANDY CUTTER MACHINE Work Phone: [facility] 10-30-2023 11:27-0500 Body weight 100.15 kg Sophy Ulloa APRN.CANDY CUTTER MACHINE Work Phone: [facility] 10-30-2023 11:27-0500 Diastolic blood pressure 80 mm[Hg] Sophy Ulloa APRN.CANDY CUTTER MACHINE Work Phone: [facility] 10-30-2023 11:27-0500 Heart rate 91 /min Sophy Ulloa APRN.CANDY CUTTER MACHINE Work Phone: [facility] 10-30-2023 11:27-0500 Respiratory rate 16 /min Sophy Ulloa APRN.CANDY CUTTER MACHINE Work Phone: [facility] 10-30-2023 11:27-0500 SaO2% (BldA) [Mass fraction] 98 % Sophy Ulloa APRN.CANDY CUTTER MACHINE Work Phone: [facility] 10-30-2023 11:27-0500 Systolic blood pressure 122 mm[Hg] Sophy Ulloa APRN.CANDY CUTTER MACHINE Work Phone: [facility] 10-29-2023 10:33-0500 Body temperature 98.8 [degF] Lester Rojo APRN.CANDY CUTTER MACHINE Work Phone: [facility] 10-29-2023 10:33-0500 Body weight 101.33 kg Lester Rojo APRN.CANDY CUTTER MACHINE Work Phone: [facility] 10-29-2023 10:33-0500 Diastolic blood pressure 90 mm[Hg] Lester Rojo APRN.CANDY CUTTER MACHINE Work Phone: [facility] 10-29-2023 10:33-0500 Heart rate 90 /min Lester Darrel FUSING LINE INSPECTOR.CANDY CUTTER MACHINE Work Phone: [facility] 10-29-2023 10:33-0500 Respiratory rate 20 /min Lester Darrel FUSING LINE INSPECTOR.CANDY CUTTER MACHINE Work Phone: [facility] 10-29-2023 10:33-0500 SaO2% (BldA) [Mass fraction] 98 % Lester Darrel FUSING LINE INSPECTOR.CANDY CUTTER MACHINE Work Phone: [facility] 10-29-2023 10:33-0500 Systolic blood pressure 120 mm[Hg] Lester Darrel FUSING LINE INSPECTOR.CANDY CUTTER MACHINE Work Phone: [facility] 05-15-2023 11:17-0400 Body temperature 98.29 [degF] Lester Darrel FUSING LINE INSPECTOR.CANDY CUTTER MACHINE Work Phone: [facility] 05-15-2023 11:17-0400 Body weight 95.71 kg Lester Darrel FUSING LINE INSPECTOR.CANDY CUTTER MACHINE Work Phone: [facility] 05-15-2023 11:17-0400 Diastolic blood pressure 68 mm[Hg] Lestre Darrel FUSING LINE INSPECTOR.CANDY CUTTER MACHINE Work Phone: [facility] 05-15-2023 11:17-0400 Heart rate 86 /min Lester Darrel FUSING LINE INSPECTOR.CANDY CUTTER MACHINE Work Phone: [facility] 05-15-2023 11:17-0400 Respiratory rate 16 /min Lester Darrel FUSING LINE INSPECTOR.CANDY CUTTER MACHINE Work Phone: [facility] 05-15-2023 11:17-0400 SaO2% (BldA) [Mass fraction] 99 % Lester Darrel FUSING LINE INSPECTOR.CANDY CUTTER MACHINE Work Phone: [facility] 05-15-2023 11:17-0400 Systolic blood pressure 112 mm[Hg] Lester Darrel FUSING LINE INSPECTOR.CANDY CUTTER MACHINE Work Phone: [facility] 03-15-2023 08:16-0400 Body temperature 98.2 [degF] Torri Park PA-C Work Phone: [facility] 06-28-2023 08:16-0400 Body weight 95.25 kg Torri Athy PA-C Work Phone: [facility] 03-15-2023 08:16-0400 Diastolic blood pressure 68 mm[Hg] Torri Athy PA-C Work Phone: [facility] 03-15-2023 08:16-0400 Heart rate 96 /min Torri Athy PA-C Work Phone: [facility] 03-15-2023 08:16-0400 Respiratory rate 16 /min Torri Athy PA-C Work Phone: [facility] 03-15-2023 08:16-0400 SaO2% (BldA) [Mass fraction] 98 % Torri Athy PA-C Work Phone: [facility] 03-15-2023 08:16-0400 Systolic blood pressure 110 mm[Hg] Torri Athy PA-C Work Phone: [facility] 11-28-2022 10:37-0400 Body temperature 97.9 [degF] Joseph Pendlebury FUSING LINE INSPECTOR.CANDY CUTTER MACHINE Work Phone: [facility] 11-28-2022 10:37-0400 Body weight 104.87 kg Joseph Pendlebury FUSING LINE INSPECTOR.CANDY CUTTER MACHINE Work Phone: [facility] 11-28-2022 10:37-0400 Diastolic blood pressure 76 mm[Hg] Joseph Pendlebury FUSING LINE INSPECTOR.CANDY CUTTER MACHINE Work Phone: [facility] 11-28-2022 10:37-0400 Heart rate 100 /min Joseph Pendlebury FUSING LINE INSPECTOR.CANDY CUTTER MACHINE Work Phone: [facility] 11-28-2022 10:37-0400 Respiratory rate 20 /min Joseph Pendlebury FUSING LINE INSPECTOR.CANDY CUTTER MACHINE Work Phone: [facility] 11-28-2022 10:37-0400 SaO2% (BldA) [Mass fraction] 98 % Joseph Pendlebury FUSING LINE INSPECTOR.CANDY CUTTER MACHINE Work Phone: [facility] 11-28-2022 10:37-0400 Systolic blood pressure 120 mm[Hg] Joseph Alaniz APRN.CANDY CUTTER MACHINE Work Phone: [facility] 05-28-2022 11:45-0400 Body temperature 97.7 [degF] [facility] Work Phone: 05-28-2022 11:45-0400 Diastolic blood pressure 72 mm[Hg] [facility] Work Phone: 05-28-2022 11:45-0400 Heart rate 72 /min [facility] Work Phone: 05-28-2022 11:45-0400 Respiratory rate 16 /min [facility] Work Phone: 05-28-2022 11:45-0400 SaO2% (BldA) [Mass fraction] 100 % [facility] Work Phone: 05-28-2022 11:45-0400 Systolic blood pressure 99 mm[Hg] [facility] Work Phone: 05-25-2022 18:40-0400 Body height 172.72 cm [facility] Work Phone: 05-25-2022 18:40-0400 Body mass index (BMI) [Ratio] 37.3 kg/m2 [facility] Work Phone: 05-25-2022 18:40-0400 Body weight 111.3 kg [facility] Work Phone: Encounters Encounter Date Encounter Type Care Provider Facility Start: 05-06-2025 ambulatory Ny Ulloa Facility:[facility] Start: 04-28-2025 End: 04-28-2025 Office outpatient visit 15 minutes Sarah Youngblood MD Work Phone: OB/Gynecology Comment on above: 37 weeks gestation o f (HCC) (Primary Dx); Supervision of high risk in second trimester (HCC); Obesity in (HCC) Start: 04-23-2025 End: 04-23-2025 ambulatory GIULIANA BULLARD Facility:[facility] Start: 04-18-2025 End: 04-18-2025 Patient encounter procedure Iveth Mccain MD Work Phone: OB/Gynecology Comment on above: Supervision of high risk in second trimester (HCC) (Primary Dx); Hx of preeclampsia, prior , currently (HCC); LGA (large for gestational age) infant (HCC); Obesity in (HCC); 36 weeks gestation of (HCC) Encounter for ultras ound to check growth (HCC) (Primary Dx); Obesity affecting in second trimester, unspecified obesity type (HCC); 36 weeks gestation of (HCC) Start: 04-18-2025 End: 04-18-2025 ambulatory IVETH MCCAIN Facility:[facility] Start: 04-07-2025 End: 04-07-2025 Refill Mayelin Duran APRN.CNM Work Phone: OB/Gynecology Comment on above: Refill Request Start: 04-07-2025 End: 04-07-2025 Telephone encounter Sarah Mahmood RN Maternal Medicine Comment on above: [employer] ([employer]) Start: 04-04-2025 End: 04-04-2025 Office outpatient visit 15 minutes Sarah Youngblood MD Work Phone: OB/Gynecology Comment on above: Supervision of high risk in second trimester (HCC) (Primary Dx); Hx of preeclampsia, prior , currently (HCC); LGA (large for gestational age) infant ([facility]); Traumatic ; Anxiety and depression; 34 weeks gestation of ([facility]) Start: 04-04-2025 End: 04-04-2025 ambulatory GIULIANA BULLARD Facility:[facility] Start: 03-20-2025 End: 03-20-2025 Telephone encounter Beau Johnson Ob L&D Work Phone: [facility] 3 L&D Comment on above: Care Coordination (M -Power Scheduling/LM attempt # 2) Start: 03-20-2025 End: 03-20-2025 Patient encounter procedure Ny Ulloa MD Work Phone: OB/Gynecology Comment on above: Hx of preeclampsia, prior , currently (HCC) (Primary Dx); LGA (large for gestational age) infant ([facility]) Encounter for ultras ound to check growth (HCC) (Primary Dx); Obesity affecting in second trimester, unspecified obesity type (HCC); 32 weeks gestation of (HCC) Start: 03-20-2025 End: 03-20-2025 ambulatory Ny Ulloa MD Work Phone: OB/Gynecology Comment on above: First info rmation Start: 03-13-2025 End: 03-13-2025 Telephone encounter Beau Johnson Ob L&D Work Phone: [facility] Comment on above: Care Coordination (M -Power Scheduling/LM attempt # 1) Start: 03-11-2025 End: 03-11-2025 ambulatory Beau Johnson Ob L&D Work Phone: [facility] 3 L&D Comment on above: M-Power Time to Maynor mikaelrobert Start: 03-11-2025 End: 03-11-2025 E-mail encounter from caregiver Beau Johnson Ob L&D Work Phone: [facility] 3 L&D Start: 03-07-2025 End: 03-07-2025 Office outpatient visit 15 minutes Sarah Youngblood MD Work Phone: OB/Gynecology Comment on above: 30 weeks gestation o f (HCC) (Primary Dx); Hx of preeclampsia, prior , currently ([facility]) Start: 03-07-2025 End: 03-07-2025 ambulatory [facility] Facility:[facility] Start: 02-24-2025 End: 04-26-2025 Follow-up encounter Mayelin Duran APRN.CNM Work Phone: OB/Gynecology Start: 02-24-2025 End: 02-24-2025 Telephone encounter Sarah Mahmood RN Maternal Medicine Comment on above: [employer] ([employer]) Start: 02-22-2025 End: 02-22-2025 ambulatory [facility] Facility:[facility] Start: 02-21-2025 End: 02-21-2025 Patient encounter procedure Mayelin Duran APRN.TAL Work Phone: OB/Gynecology Comment on above: Screening for diabet es mellitus (Primary Dx); Supervision of high risk in second trimester (HCC); Hx of preeclampsia, prior , currently (HCC); Traumatic ; Anxiety and depression; 28 weeks gestation of (HCC); Obesity affecting in second trimester, unspecified obesity type (HCC) Start: 02-21-2025 End: 02-21-2025 ambulatory GIULIANA BULLARD Facility:[facility] Start: 01-24-2025 End: 01-24-2025 Patient encounter procedure Ignacia Lyon APRN.CNAnkit Work Phone: OB/Gynecology Comment on above: Supervision of high risk in second trimester (HCC) (Primary Dx); 24 weeks gestation of (HCC); Obesity affecting in second trimester, unspecified obesity type (HCC); Hx of preeclampsia, prior , currently (HCC); Traumatic ; Anxiety and depression; Heartburn during in first trimester (HCC) Start: 01-24-2025 End: 01-24-2025 [facility] GIULIANA BULLARD Facility:[facility] Start: 12-27-2024 End: 12-27-2024 E-mail encounter from caregiver Beau Fv Ob L&D Work Phone: [facility] 3 L&D Start: 12-27-2024 End: 12-27-2024 ambulatory MAYELIN DURAN Facility:[facility] Start: 12-27-2024 End: 12-27-2024 Patient encounter procedure Mayelin Duran APRN.TAL Work Phone: OB/Gynecology Comment on above: Supervision of high risk in second trimester (HCC) (Primary Dx); Hx of preeclampsia, prior , currently (HCC); Obesity affecting in second trimester, unspecified obesity type (HCC); 20 weeks gestation of (HCC); Traumatic M-Power Referral Encounter for anatomic survey (HCC) (Primary Dx); 20 weeks gestation of (HCC); Obesity affecting in second trimester, unspecified obesity type (HCC) Start: 12-04-2024 End: 12-04-2024 [facility] Facility:[facility] Start: 12-04-2024 End: 12-04-2024 Office outpatient visit 25 minutes Joseph Alaniz APRN.CANDY CUTTER MACHINE Work Phone: [facility] Comment on above: Bacterial sinusitis (Primary Dx) Start: 11-28-2024 End: 11-28-2024 ambulatory TEN WISE Facility:[facility] Start: 11-28-2024 End: 11-28-2024 Patient encounter procedure Ten Wise MD Work Phone: OB/Gynecology Comment on above: Obesity affecting pr egnancy in first trimester, unspecified obesity type (Primary Dx); 16 weeks gestation of ; Supervision of high risk in second trimester Start: 11-12-2024 End: 11-19-2024 Telephone encounter Ny Ulloa MD Work Phone: OB/Gynecology Comment on above: Breast Pump Start: 11-07-2024 End: 01-07-2025 Follow-up encounter Alexis Pemberton MD Work Phone: [facility] Comment on above: BV (bacterial vagino sis) (Primary Dx) Start: 11-06-2024 End: 11-06-2024 [facility] Facility:[facility] Start: 11-06-2024 End: 11-06-2024 Patient encounter procedure Ignacia Ribeiro APRN.CANDY CUTTER MACHINE Work Phone: [facility] Comment on above: Urinary frequency (P rimary Dx); Vaginal discharge; 19 weeks gestation of Start: 11-01-2024 End: 01-01-2025 Follow-up encounter Madi Moss APRN.CANDY CUTTER MACHINE Work Phone: OB/Gynecology Start: 11-01-2024 End: 11-01-2024 ambulatory MADI MOSS Facility:[facility] Start: 11-01-2024 End: 11-01-2024 ambulatory MADI MOSS Facility:[facility] Start: 11-01-2024 End: 11-01-2024 Patient encounter procedure Ny Ulloa MD Work Phone: OB/Gynecology Comment on above: Supervision of high risk in first trimester (Primary Dx); Hx of preeclampsia, prior , currently ; Obesity affecting in first trimester, unspecified obesity type; 12 weeks gestation of 12 weeks gestation o f (Primary Dx); Encounter for supervision of high risk in first trimester, antepartum Start: 10-21-2024 End: 10-21-2024 Refill Madi Moss APRN.CANDY CUTTER MACHINE Work Phone: OB/Gynecology Comment on above: Refill Request Start: 09-30-2024 End: 09-30-2024 Refill Madi Moss APRN.CANDY CUTTER MACHINE Work Phone: OB/Gynecology Comment on above: Refill Request Start: 09-26-2024 End: 09-26-2024 Telephone encounter Gopi Goddard RN Obstetrics/Gynecolo gy Comment on above: PRAF Start: 09-25-2024 End: 09-25-2024 ambulatory SELF Facility:[facility] Start: 09-25-2024 End: 09-25-2024 Patient encounter procedure Madi Moss APRN.CANDY CUTTER MACHINE Work Phone: OB/Gynecology Comment on above: Encounter for superv ision of high risk in first trimester, antepartum (Primary Dx); Less than 8 weeks gestation of ; with uncertain dates in first trimester; Hx of preeclampsia, prior , currently ; Obesity affecting in first trimester, unspecified obesity type; History of depression; Nausea and vomiting during ; Heartburn during in first trimester; Family history of Down syndrome; Family history of autism; Headache, unspecified headache type; Asthma affecting in first trimester; Anxiety and depression Start: 09-24-2024 End: 09-24-2024 Emergency department patient visit Pato Carrillo Facility:[facility] Start: 09-24-2024 End: 09-24-2024 Telephone encounter Iveth Mccain MD Work Phone: OB/Gynecology Comment on above: OB - N/V Start: 09-14-2024 End: 09-14-2024 Emergency department patient visit Juana Correa Facility:[facility] Start: 09-13-2024 End: 09-13-2024 Telephone encounter Sarah Youngblood MD Work Phone: OB/Gynecology Comment on above: Nausea Start: 05-06-2024 End: 05-06-2024 Patient encounter procedure Madi Moss APRN.CANDY CUTTER MACHINE Work Phone: OB/Gynecology Comment on above: Nexplanon removal (P rimary Dx); Screening for STD (sexually transmitted disease) Start: 05-06-2024 End: 05-06-2024 ambulatory MADI RODRIGUEZNICHOLE Facility:[facility] Start: 05-03-2024 End: 05-03-2024 ambulatory GIULIANA BULLARD Facility:[facility] Start: 05-03-2024 End: 05-03-2024 Patient encounter procedure Madi Moss APRN.CANDY CUTTER MACHINE Work Phone: OB/Gynecology Comment on above: Encounter for gyneco logical examination (general) (routine) with abnormal findings (Primary Dx); Screening for cervical cancer; Encounter for screening for human papillomavirus (HPV); Nexplanon removal; Screening examination for STD (sexually transmitted disease); Nipple discharge; Vaginal odor; Obesity, unspecified classification, unspecified obesity type, unspecified whether serious comorbidity present Start: 05-03-2024 End: 05-03-2024 Patient encounter status Madi Moss APRN.CNP Work Phone: [facility] Work Phone: Start: 01-28-2024 End: 01-28-2024 Patient encounter procedure Sophy Ulloa APRN.CNP Work Phone: [facility] Comment on above: Rhinosinusitis (Prim pascual Dx) Start: 10-30-2023 End: 10-30-2023 Patient encounter procedure Sophy Ulloa APRN.CANDY CUTTER MACHINE Work Phone: [facility] Comment on above: Pain (Primary Dx) Start: 10-30-2023 End: 10-30-2023 Subsequent hospital visit by physician Mendoza [facility] Dian Work Phone: Radiology Comment on above: Pain [R52] Rhonchi at right lesia g base [R09.89] Start: 10-29-2023 End: 02-11-2024 Patient encounter procedure Lester Rojo APRN.CANDY CUTTER MACHINE Work Phone: [facility] Comment on above: Viral syndrome (Prim pascual Dx); Rhonchi at right lung base Start: 05-15-2023 End: 05-15-2023 Patient encounter procedure Lester Rojo APOORVA.CANDY CUTTER MACHINE Work Phone: [place] Comment on above: URI, acute (Primary Dx); Sore throat; History of asthma Start: 03-15-2023 Telephone encounter Brendan CHAND Work Phone: [facility] Comment on above: Results Start: 03-15-2023 End: 03-15-2023 Patient encounter procedure Torri Park PA-C Work Phone: [facility] Comment on above: Sore throat (Primary Dx); Viral URI; Acute otitis media, bilateral Start: 11-28-2022 End: 11-28-2022 Office outpatient visit 25 minutes Joseph Alaniz APRN.CANDY CUTTER MACHINE Work Phone: [facility] Comment on above: Suspected COVID-19 v irus infection (Primary Dx); Acute otitis media, right Start: 05-25-2022 End: 05-28-2022 [facility] Start: 04-28-2022 End: 04-28-2022 Patient encounter procedure [facility], Specimen Start: 03-15-2022 End: 03-15-2022 Patient encounter procedure [facility], [place] [facility] test developer Off Start: 12-31-2021 End: 01-01-2022 ambulatory [facility] Facility:[facility] Start: 12-03-2021 End: 12-03-2021 Subsequent hospital visit by physician Tori Guidry APRN - CANDY CUTTER MACHINE Work Phone: [facility] Comment on above: Supervision of high risk in second trimester; Maternal obesity, antepartum Start: 11-29-2021 End: 11-29-2021 ambulatory GIULIANA BULLARD Facility:[facility] Procedures Date Procedure Procedure Detail Performing Clinician Start: 04-28-2025 Urnls dip stick/tabl et rgnt non-auto w/o micrscp Sarah Youngblood MD Work Phone: Start: 04-18-2025 Urnls dip stick/tabl et rgnt non-auto w/o micrscp Iveth Mccain MD Work Phone: Start: 04-18-2025 Us preg uterus after 1st trimest / gestation Mayelin Duran FUSING LINE INSPECTOR.CNM Work Phone: Start: 04-04-2025 Urnls dip stick/tabl et rgnt non-auto w/o micrscp Sarah Youngblood MD Work Phone: Start: 03-20-2025 Us preg uterus after 1st trimest / gestation Mayelin Plotracquel FUSING LINE INSPECTOR.CNM Work Phone: Start: 12-27-2024 Us preg uterus after 1st trimest 09/18 gestation Madi Moss APRN.CANDY CUTTER MACHINE Work Phone: Start: 11-06-2024 Urnls dip stick/tabl et rgnt auto w/o microscopy Ignacia Ribeiro FUSING LINE INSPECTOR.CANDY CUTTER MACHINE Work Phone: Start: 11-01-2024 Antibody screen GIULIANA BULLARD Comment on above: Order Comment: Speci men Type: BLOOD SPECIMENOrdering Facility: [facility] Address: [address] [place] [address] Performed By: #### T SPN ####CC MAIN BLOOD BANKCLIA [id number] [place] [address] [place] Start: 11-01-2024 Us nuchal saucedo slucency 1st gestation Madi Moss APRN.CANDY CUTTER MACHINE Work Phone: Start: 09-25-2024 Us uterus l imited 1/> fetuses Madi Moss APRN.CANDY CUTTER MACHINE Work Phone: Start: 10-30-2023 Radex toe minimum 2 views Sophy Ulloa APRN.CANDY CUTTER MACHINE Work Phone: Start: 10-30-2023 Radiologic exam ches t 2 views Lester Rojo FUSING LINE INSPECTOR.CANDY CUTTER MACHINE Work Phone: Start: 05-15-2023 STREP A MOLECULAR (POC) Lester Rojo FUSING LINE INSPECTOR.CANDY CUTTER MACHINE Work Phone: Start: 03-15-2023 STREP A MOLECULAR (POC) Sophy Ulloa FUSING LINE INSPECTOR.CANDY CUTTER MACHINE Work Phone: Start: 11-28-2022 COVID WITH FLUA+B, ROUTINE Joseph Alaniz FUSING LINE INSPECTOR.CANDY CUTTER MACHINE Work Phone: Start: 12-03-[address] gtt 3 specimens Tori Guidry FUSING LINE INSPECTOR - CANDY CUTTER MACHINE Work Phone: Start: 11-10-2021 Blood count hemoglobin Comment on above: Performed By: #### A RAMIRO NEVILLE #### [facility] Start: 06-03-2019 Throat culture Comment on above: Performed By: #### C THRT #### [place] [address] Group B Streptococcu s Culture Viral antigen assay Plan of Treatment Date Care Activity Detail Author Start: 05-03-2027 Screening for malign ant neoplasm of cervix Cervical Cancer Screening [facility] Start: 11-06-2025 GC (Gonorrhea) Scree kurt (18-) GC (Gonorrhea) Screening (18-) [facility] Start: 11-06-2025 Screening for Chlamy christine trachomatis Chlamydia Screening () [facility] Start: 09-25-2025 GC (Gonorrhea) Scree kurt (18-24) GC (Gonorrhea) Screening (18-24) [facility] Start: 09-25-2025 Screening for Chlamy christine trachomatis Chlamydia Screening (18) [facility] Start: 05-19-2025 Influenza vaccination C [facility] Start: 05-09-2025 End: 05-09-2025 Patient encounter procedure 05/09/2025 3:15 PM EDT Routine Office Visit OB/Gynecology [address] [place] [address] Ignacia Lyon APRN.CN [address] [place] [address] OB OB/Gynecology Comment on above: OB Start: 05-06-2025 GC (Gonorrhea) Scree kurt () GC (Gonorrhea) Screening (-) [facility] Start: 05-06-2025 Screening for Chlamy christine trachomatis Chlamydia Screening () [facility] Start: 05-05-2025 End: 05-05-2025 Patient encounter procedure 05/05/2025 2:45 PM EDT Office Visit OB/Gynecology [address] [place] [address] Madi Moss APRN.[facility] [address] [place] [address] Annual OB/Gynecology Comment on above: Annual Start: 04-28-2025 End: 04-28-2025 Patient encounter procedure 04/28/2025 2:30 PM EDT Routine Office Visit OB/Gynecology [address] [place] [address] Sarah Youngblood MD [address] [place] [address] OB/NST OB/Gynecology Comment on above: OB/NST Start: 04-23-2025 End: 04-23-2025 Patient encounter procedure 04/23/2025 9:00 AM EDT Routine Office Visit OB/Gynecology [address] [place] [address] Enmanuel Rodriguez MD [address] [place] [address] OB/NST OB/Gynecology Comment on above: OB/NST Start: 04-18-2025 End: 04-18-2025 Patient encounter procedure Maternal Medicine Comment on above: Growth Growth /OB Start: 04-04-2025 End: 04-04-2025 Patient encounter procedure 04/04/2025 9:50 AM EDT Routine Office Visit OB/Gynecology [address] [place] [address] Sarah Youngblood MD [address] [place] [address] OB OB/Gynecology Comment on above: OB Start: 03-20-2025 End: 03-20-2025 Patient encounter procedure Maternal Medicine Comment on above: Growth Growth/OB Start: 03-07-2025 End: 03-07-2025 Patient encounter procedure 03/07/2025 1:50 PM EDT Routine Office Visit OB/Gynecology [address] [place] [address] Sarah Youngblood MD [address] [place] [address] OB OB/Gynecology Comment on above: OB Start: 02-21-2025 End: 05-23-2025 ANEMIA REFLEX PANEL [facility] Comment on above: Expected: 02/21/2025 , Expires: 05/23/2025 Start: 02-21-2025 End: 02-21-2026 SYPHILIS TREPONEMAL W/REFLEX [facility] Work Phone: Comment on above: Expected: 02/21/2025 , Expires: 02/21/2026 Start: 02-21-2025 End: 02-21-2025 Patient encounter procedure 02/21/2025 11:15 AM EDT Routine Office Visit OB/Gynecology [address] [place] [address] Mayelin Duran APRN.[facility] [address] [place] [address] OB OB/Gynecology Comment on above: OB Start: 01-24-2025 End: 01-24-2025 Patient encounter procedure 01/24/2025 2:30 PM EDT Routine Office Visit OB/Gynecology [address] [place], [place] [id number] Ignacia Lyon APRN.CN [address] [place] [address] OB OB/Gynecology Comment on above: OB Start: 12-27-2024 End: 12-27-2024 Patient encounter procedure Maternal Medicine Comment on above: with uncer tain dates in first trimester [Z34.91] OB Start: 11-28-2024 End: 11-28-2024 Patient encounter procedure 11/28/2024 1:30 PM EDT Routine Office Visit OB/Gynecology [address] [place] [id number] Ten Wise MD [address] [place] [address] OB OB/Gynecology Comment on above: OB Start: 11-01-2024 End: 01-31-2025 Chromosome 21 trisomy [Presence] in Blood or Tissue by Cytogenetics [facility] Work Phone: Comment on above: Expected: 11/01/2024 , Expires: 01/31/2025 Start: 11-01-2024 End: 11-01-2024 Patient encounter procedure OB/Gynecology Comment on above: New OB LMP 07/22/24 Encounter for superv ision of high risk in first trimester, antepartum [O09.91] Start: 09-26-2024 End: 09-26-2024 Patient encounter procedure 09/26/2024 10:20 AM EST Office Visit OB/Gynecology [address] [place] [address] Iveth Walker MD [address] [place] [id number] New wt mgmt consult OB/Gynecology Comment on above: New wt mgmt consult Start: 09-25-2024 End: 12-25-2024 ANEMIA REFLEX PANEL ANEMIA REFLEX PANEL Lab Routine Less than 8 weeks gestation of with uncertain dates in first trimester Expected: 09/25/2024, Expires: 12/25/2024 [facility] Work Phone: Comment on above: Expected: 09/25/2024 , Expires: 12/25/2024 Start: 09-25-2024 End: 12-25-2024 Comprehensive metabolic 2000 panel - Serum or Plasma COMPREHENSIVE METABOLIC PANEL Lab Routine Hx of preeclampsia, prior , currently Expected: 09/25/2024, Expires: 12/25/2024 [facility] Comment on above: Expected: 09/25/2024 , Expires: 12/25/2024 Start: 09-25-2024 End: 12-25-2024 Hemoglobin A1c in Blood HEMOGLOBIN A1C Lab Routine Less than 8 weeks gestation of with uncertain dates in first trimester Expected: 09/25/2024, Expires: 12/25/2024 [facility] Comment on above: Expected: 09/25/2024 , Expires: 12/25/2024 Start: 09-25-2024 End: 12-25-2024 HEMOGLOBIN EVALUATION CASCADE HEMOGLOBIN EVALUATION CASCADE Lab Routine Encounter for supervision of high risk in first trimester, antepartum Expected: 09/25/2024, Expires: 12/25/2024 [facility] Comment on above: Expected: 09/25/2024 , Expires: 12/25/2024 Start: 09-25-2024 End: 12-25-2024 Hepatitis B virus surface Ag [Presence] in Serum HEPATITIS B SURFACE ANTIGEN Lab Routine Less than 8 weeks gestation of with uncertain dates in first trimester Expected: 09/25/2024, Expires: 12/25/2024 [facility] Comment on above: Expected: 09/25/2024 , Expires: 12/25/2024 Start: 09-25-2024 End: 12-25-2024 Hepatitis C virus Ab [Presence] in Serum HEPATITIS C ANTIBODY IA WITH CONFIRMATION Lab Routine Less than 8 weeks gestation of with uncertain dates in first trimester Expected: 09/25/2024, Expires: 12/25/2024 [facility] Comment on above: Expected: 09/25/2024 , Expires: 12/25/2024 Start: 09-25-2024 End: 12-25-2024 HIV 1+2 Ab [Presence] in Serum or Plasma by Immunoassay HIV 1/2 COMBO WITH REFLEX TO DIFFERENTIATION Lab Routine Less than 8 weeks gestation of with uncertain dates in first trimester Expected: 09/25/2024, Expires: 12/25/2024 [facility] Comment on above: Expected: 09/25/2024 , Expires: 12/25/2024 Start: 09-25-2024 End: 09-25-2025 NUCHAL TRANSLUCENCY WHI NUCHAL TRANSLUCENCY WHI Anc Imaging Routine Encounter for supervision of high risk in first trimester, antepartum Expected: 09/25/2024, Expires: 09/25/2025 [facility] Comment on above: Expected: 09/25/2024 , Expires: 09/25/2025 Start: 09-25-2024 End: 09-25-2025 OBSTETRIC ULTRASOUND WHI OBSTETRIC ULTRASOUND WHI Anc Imaging Routine Less than 8 weeks gestation of with uncertain dates in first trimester Expected: 09/25/2024, Expires: 09/25/2025 [facility] Comment on above: Expected: 09/25/2024 , Expires: 09/25/2025 Start: 09-25-2024 End: 12-25-2024 Protein/Creatinine [Mass Ratio] in Urine PROTEIN / CREATININE RATIO Lab Routine Hx of preeclampsia, prior , currently Expected: 09/25/2024, Expires: 12/25/2024 [facility] Comment on above: Expected: 09/25/2024 , Expires: 12/25/2024 Start: 09-25-2024 End: 12-25-2024 RUBELLA IGG ANTIBODY RUBELLA IGG ANTIBODY Lab Routine Less than 8 weeks gestation of with uncertain dates in first trimester Expected: 09/25/2024, Expires: 12/25/2024 [facility] Comment on above: Expected: 09/25/2024 , Expires: 12/25/2024 Start: 09-25-2024 End: 12-25-2024 SYPHILIS TREPONEMAL W/REFLEX SYPHILIS TREPONEMAL W/REFLEX Lab Routine Less than 8 weeks gestation of with uncertain dates in first trimester Expected: 09/25/2024, Expires: 12/25/2024 [facility] Comment on above: Expected: 09/25/2024 , Expires: 12/25/2024 Start: 09-25-2024 End: 12-25-2024 Thyrotropin [Units/volume] in Serum or Plasma THYROID STIMULATING HORMONE Lab Routine Hx of preeclampsia, prior , currently Expected: 09/25/2024, Expires: 12/25/2024 [facility] Comment on above: Expected: 09/25/2024 , Expires: 12/25/2024 Start: 09-25-2024 End: 12-25-2024 TYPE + SCREEN TYPE + SCREEN Blood Bank Routine Less than 8 weeks gestation of with uncertain dates in first trimester Expected: 09/25/2024, Expires: 12/25/2024 [facility] Comment on above: Expected: 09/25/2024 , Expires: 12/25/2024 Start: 09-25-2024 End: 09-25-2024 Patient encounter procedure OB/Gynecology Comment on above: New OB LMP 07/22/24 9 weeks gestation of (Primary Dx) Start: 05-19-2024 Covid-19 Vaccine ( season) Covid-19 Vaccine () [facility] Start: 05-19-2024 Covid-19 Vaccine ( season) Covid-19 Vaccine ( season) [facility] Start: 05-19-2024 Influenza vaccination C [facility] Start: 05-06-2024 End: 05-06-2024 Patient encounter procedure 05/06/2024 3:30 PM EDT Office Visit OB/Gynecology [address] [place], [place] [id number] Madi Moss APRN.CANDY CUTTER MACHINE [address] [place] [place] [address] Nexplonon Removal OB/Gynecology Comment on above: Nexplonon Removal Start: 05-03-2024 End: 08-02-2024 CBC panel - Blood by Automated count COMPLETE BLOOD COUNT Lab Routine Nipple discharge Expected: 05/03/2024, Expires: 08/02/2024 [facility] Comment on above: Expected: 05/03/2024 , Expires: 08/02/2024 Start: 05-03-2024 End: 08-02-2024 Hemoglobin A1c in Blood HEMOGLOBIN A1C Lab Routine Nipple discharge Expected: 05/03/2024, Expires: 08/02/2024 [facility] Comment on above: Expected: 05/03/2024 , Expires: 08/02/2024 Start: 05-03-2024 End: 08-02-2024 Prolactin [Mass/volume] in Serum or Plasma PROLACTIN Lab Routine Nipple discharge Expected: 05/03/2024, Expires: 08/02/2024 [facility] Comment on above: Expected: 05/03/2024 , Expires: 08/02/2024 Start: 05-03-2024 End: 08-02-2024 Thyrotropin [Units/volume] in Serum or Plasma THYROID STIMULATING HORMONE Lab Routine Nipple discharge Expected: 05/03/2024, Expires: 08/02/2024 [facility] Comment on above: Expected: 05/03/2024 , Expires: 08/02/2024 Start: 05-03-2024 End: 08-02-2024 Thyroxine (T4) free [Mass/volume] in Serum or Plasma T4 FREE/FREE THYROXINE Lab Routine Nipple discharge Expected: 05/03/2024, Expires: 08/02/2024 [facility] Comment on above: Expected: 05/03/2024 , Expires: 08/02/2024 Start: 04-17-2024 DTaP/Tdap/Td vaccine (7 - Td or Tdap) DTaP/Tdap/Td vaccine (7 - Td or Tdap) [facility] Start: 04-17-2024 Urine microalbumin profile [facility] Start: 05-19-2023 Covid-19 Vaccine ( season) Covid-19 Vaccine () [facility] Start: 05-19-2023 Influenza vaccination C [facility] Start: 05-15-2023 End: 05-29-2023 SARS-CoV-2 (COVID-19) RNA [Presence] in Respiratory specimen by LOTTIE with probe detection [facility] Work Phone: Comment on above: Expected: 05/15/2023 , Expires: 05/29/2023 Start: 03-15-2023 End: 03-29-2023 Influenza virus A and B RNA and SARS-CoV-2 (COVID-19) N gene panel - Respiratory specimen by LOTTIE with probe detection [facility] Work Phone: Comment on above: Expected: 03/15/2023 , Expires: 03/29/2023 Start: 11-15-2022 Screening for Chlamy christine trachomatis Chlamydia screen [facility] Start: 2022 PAP TESTING PAP TESTING [facility] Start: 2022 Screening for malign ant neoplasm of cervix [facility] Start: 05-28-2022 Patient discharge [facility] Work Phone: Start: 05-27-2022 Administration of medication [facility] Work Phone: Start: 05-27-2022 Application of ice collar, cap or bag [facility] Work Phone: Start: 05-27-2022 Catheterization of vein [facility] Work Phone: Start: 05-27-2022 Introduction of urin pascual catheter [facility] Work Phone: Start: 05-27-2022 Measuring intake and output [facility] Work Phone: Start: 05-27-2022 Notification of physician [facility] Work Phone: Start: 05-27-2022 Procedure discontinued [facility] Work Phone: Start: 05-27-2022 Provision of activit y privileges [facility] Work Phone: Start: 05-27-2022 Vital signs measurements [facility] Work Phone: Start: 05-27-2022 [facility] Work Phone: Start: 05-25-2022 Admission procedure [facility] Work Phone: Start: 05-19-2022 Influenza vaccination INFLUENZA (#1) [facility] Start: 04-05-2022 ANNUAL PCP TEAM IRON CUTTER JED DISEASE VISIT ANNUAL PCP TEAM CHRONIC DISEASE VISIT [facility] Start: 12-21-2021 End: 12-21-2021 Patient encounter procedure 12/21/2021 Routine Obstetrics and Gynecology Carrie Rubio MD [address], [address] [facility] [place] [address] [facility] Start: 12-21-2021 End: 12-21-2021 Patient encounter procedure 12/21/2021 Procedure visit Obstetrics and Gynecology [facility] Start: 12-06-2021 End: 12-06-2021 Patient encounter procedure 12/06/2021 Routine Obstetrics and Gynecology Tori Guidry APRN - [place] [address] [facility] [place] [address] [facility] Start: 10-08-2021 ASTHMA ACTION PLAN ASTHMA ACTION ELENA N [facility] Start: 05-19-2021 Influenza vaccination Flu vaccine (# 1) [facility] Start: 05-07-2021 CHLAMYDIA SCREENING (18-24) CHLAMYDIA SCREENING (18-24) [facility] Start: 05-07-2021 GC (GONORRHEA) SCREE KURT (18-24) GC (GONORRHEA) SCREENING (18-24) [facility] Start: 05-07-2021 Screening for Chlamy christine trachomatis Chlamydia Screening (18-) [facility] Start: 10-08-2020 ASTHMA CONTROL TEST ASTHMA CONTROL T EST [facility] Start: 2017 Meningococcal B Vacc ine (1 of 2 - Standard) Meningococcal B Vaccine (1 of 2 - Standard) [facility] Start: 2017 Meningococcal B Vacc ine: Consider Based On Risk (1 of 2 - Patient Seeks Protection) Meningococcal B Vaccine: Consider Based On Risk (1 of 2 - Patient Seeks Protection) [facility] Start: 2017 MENINGOCOCCAL B: Con digital media analyst based on risk (1 of 2 - Patient Seeks Protection) MENINGOCOCCAL B: Consider based on risk (1 of 2 - Patient Seeks Protection) [facility] Start: 2016 HPV Vaccine (1 - 3-d ose series) HPV Vaccine (1 - 3-dose series) [facility] Start: 2015 PEDS TO ADULT TRANSI TION ANNUAL ASSESSMENT PEDS TO ADULT TRANSITION ANNUAL ASSESSMENT [facility] Start: 2013 Depression Monitoring Depression Mon itoring [facility] Start: 2013 PEDS TO ADULT TRANSI TION INITIAL DISCUSSION PEDS TO ADULT TRANSITION INITIAL DISCUSSION [facility] Start: 2012 HPV vaccine (1 - 2-d ose series) HPV vaccine (1 - 2-dose series) [facility] Start: 2011 MENINGOCOCCAL B: Con digital media analyst based on risk (1 of 2 - Risk Bexsero 2-dose series) MENINGOCOCCAL B: Consider based on risk (1 of 2 - Risk Bexsero 2-dose series) [facility] Start: 2010 HPV VACCINE (1 - 2-d ose series) HPV VACCINE (1 - 2-dose series) [facility] Start: 2007 PNEUMOCOCCAL (1 - PCV) PNEUMOCOCCAL (1 - PCV) [facility] Start: 2007 Pneumococcal 0-64 ye ars Vaccine (1 of 2 - PPSV23) Pneumococcal 0-64 years Vaccine (1 of 2 - PPSV23) [facility] Start: 2007 Pneumococcal vaccination Pneum ococcal Vaccine (1 of 2 - PCV) [facility] Start: 2006 COVID-19 Vaccine (1) COVID-19 Vaccin e (1) [facility] Start: 06-16-2004 Hepatitis A vaccine (2 of 2 - 2-dose series) Hepatitis A vaccine (2 of 2 - 2-dose series) [facility] Start: 2001 COVID-19 VACCINE (#1) COVID-19 VACCI NE (#1) [facility] Bacteria identified in Urine by Culture BACTERIAL CULTURE, URINE Microbiology Routine Less than 8 weeks gestation of with uncertain dates in first trimester 09/25/2024 10:22 AM EST [facility] Bacteria identified in Urine by Culture BACTERIAL CULTURE, URINE Microbiology Routine Urinary frequency Ordered: 11/06/2024 [facility] Work Phone: Comment on above: Ordered: 11/06/2024 BACTERIAL VAGINOSIS NAAT BACTERI AL VAGINOSIS NAAT Lab Routine Vaginal odor 05/03/2024 4:08 PM EDT [facility] BACTERIAL VAGINOSIS NAAT BACTERI AL VAGINOSIS NAAT Lab Routine Vaginal discharge Ordered: 11/06/2024 [facility] Comment on above: Ordered: 11/06/2024 ALIREZA/TRICHOMONAS NAAT ALIREZA /TRICHOMONAS NAAT Lab Routine Vaginal odor 05/03/2024 4:08 PM EDT [facility] ALIREZA/TRICHOMONAS NAAT ALIREZA /TRICHOMONAS NAAT Lab Routine Vaginal discharge Ordered: 11/06/2024 [facility] Comment on above: Ordered: 11/06/2024 Chlamydia trachomatis+Neisseria gonorrhoeae DNA [Presence] in Unspecified specimen by LOTTIE with probe detection GONORRHEA/CHLAMYDIA NAAT Lab Routine Screening for STD (sexually transmitted disease) 05/06/2024 4:05 PM EDT [facility] Work Phone: Chlamydia trachomatis+Neisseria gonorrhoeae DNA [Presence] in Unspecified specimen by LOTTIE with probe detection GONORRHEA/CHLAMYDIA NAAT Lab Routine Less than 8 weeks gestation of with uncertain dates in first trimester 09/25/2024 10:22 AM EST [facility] Chlamydia trachomatis+Neisseria gonorrhoeae DNA [Presence] in Unspecified specimen by LOTTIE with probe detection GONORRHEA/CHLAMYDIA NAAT Lab Routine Vaginal discharge Ordered: 11/06/2024 [facility] Comment on above: Ordered: 11/06/2024 COVID & INFLUENZA A/ B & RSV NAAT, ROUTINE COVID & INFLUENZA A/B & RSV NAAT, ROUTINE Microbiology Routine Viral syndrome Ordered: 10/29/2023 [facility] Work Phone: Comment on above: Ordered: 10/29/2023 End: 06-18-2025 nonstress test NON-STRESS TEST Procedures Routine Supervision of high risk in second trimester ([facility]) Obesity in (HCC) Once per week for 5 Occurrences starting 04/18/2025 until 06/18/2025 [facility] Work Phone: Comment on above: Once per week for 5 Occurrences starting 04/18/2025 until 06/18/2025 NEXPLANON REMOVAL NEXPLANON ANGELA SILVESTRE Procedures Routine Nexplanon removal Ordered: 05/03/2024 [facility] Work Phone: Comment on above: Ordered: 05/03/2024 End: 08-20-2025 OBSTETRIC ULTRASOUND WHI OBSTETRIC ULTRASOUND WHI Anc Imaging Routine 28 weeks gestation of (HCC) Obesity affecting in second trimester, unspecified obesity type ([facility]) Once per month for 5 Occurrences starting 02/21/2025 until 08/20/2025 [facility] Comment on above: Once per month for 5 Occurrences starting 02/21/2025 until 08/20/2025 PAP TEST PAP TEST Lab Clair jessika Encounter for gynecological examination (general) (routine) with abnormal findings Screening for cervical cancer Encounter for screening for human papillomavirus (HPV) 05/03/2024 2:26 PM EDT [facility] Patient referral [facility] Work Phone: ROUTINE, GR OUP B STREPTOCOCCUS BY PCR ROUTINE, GROUP B STREPTOCOCCUS BY PCR Microbiology Routine 36 weeks gestation of ([facility]) Supervision of high risk in second trimester ([facility]) Hx of preeclampsia, prior , currently ([facility]) LGA (large for gestational age) infant ([facility]) 04/18/2025 2:51 PM EDT [facility] XR Chest 2 Views XR CHEST 2V FRO NTAL/LAT Radiology STAT Rhonchi at right lung base Ordered: 10/29/2023 [facility] Work Phone: Comment on above: Ordered: 10/29/2023 Immunizations Immunization Date Immunization Notes Care Provider Efrain escamilla 04-17-2014 tetanus toxoid, reduced diphtheria toxoid, and acellular pertussis vaccine, adsorbed Joseph Pendronnybury FUSING LINE INSPECTOR.[facility] Work Phone: [facility] Work Phone: 04-17-2014 varicella virus vaccine Joseph Pendwilfredo FUSING LINE INSPECTOR.[facility] Work Phone: [facility] Work Phone: 06-22-2007 diphtheria, tetanus toxoids and acellular pertussis vaccine Joseph Pendwilfredo FUSING LINE INSPECTOR.[facility] Work Phone: [facility] Work Phone: 06-22-2007 measles, mumps and rubella virus vaccine Joseph Pendwilfredo FUSING LINE INSPECTOR.[facility] Work Phone: [facility] Work Phone: 06-22-2007 poliovirus vaccine, inactivated Joseph Pendronnybury FUSING LINE INSPECTOR.[employer] Work Phone: [facility] Work Phone: 06-22-2007 varicella virus vaccine Joseph Alaniz FUSING LINE INSPECTOR.[facility] Work Phone: [facility] Work Phone: 12-15-2003 diphtheria, tetanus toxoids and acellular pertussis vaccine Joseph Alaniz FUSING LINE INSPECTOR.[facility] Work Phone: [facility] Work Phone: 12-15-2003 haemophilus influenz ae type b vaccine, HbOC conjugate Joseph Alaniz FUSING LINE INSPECTOR.[facility] Work Phone: [facility] Work Phone: 12-15-2003 hepatitis A vaccine, unspecified formulation Joseph Alanzi FUSING LINE INSPECTOR.[facility] Work Phone: [facility] Work Phone: 12-15-2003 hepatitis B vaccine, pediatric or pediatric/adolescent dosage Joseph Alaniz FUSING LINE INSPECTOR.[facility] Work Phone: [facility] Work Phone: 12-15-2003 measles, mumps and rubella virus vaccine Joseph Alaniz FUSING LINE INSPECTOR.[facility] Work Phone: [facility] Work Phone: 03-04-2002 diphtheria, tetanus toxoids and acellular pertussis vaccine Joseph Alaniz FUSING LINE INSPECTOR.[facility] Work Phone: [facility] Work Phone: 03-04-2002 poliovirus vaccine, inactivated Joseph Alaniz FUSING LINE INSPECTOR.[facility] Work Phone: [facility] Work Phone: 2001 diphtheria, tetanus toxoids and acellular pertussis vaccine Joseph Alaniz FUSING LINE INSPECTOR.[facility] Work Phone: [facility] Work Phone: 2001 haemophilus influenz ae type b vaccine, HbOC conjugate Joseph Alaniz FUSING LINE INSPECTOR.[facility] Work Phone: [facility] Work Phone: 2001 hepatitis B vaccine, pediatric or pediatric/adolescent dosage Joseph Alaniz FUSING LINE INSPECTOR.[employer] Work Phone: [facility] Work Phone: 2001 pneumococcal conjuga te vaccine, 7 valent Joseph Alaniz FUSING LINE INSPECTOR.[employer] Work Phone: [facility] Work Phone: 2001 poliovirus vaccine, inactivated Joseph Alaniz FUSING LINE INSPECTOR.[employer] Work Phone: [facility] Work Phone: 2001 diphtheria, tetanus toxoids and acellular pertussis vaccine Josephevgeny Salomonla FUSING LINE INSPECTOR.[employer] Work Phone: [facility] Work Phone: 2001 haemophilus influenz ae type b vaccine, HbOC conjugate [facility] FUSING LINE INSPECTOR.[employer] Work Phone: [facility] Work Phone: 2001 hepatitis B vaccine, pediatric or pediatric/adolescent dosage Joseph Alaniz FUSING LINE INSPECTOR.[facility] Work Phone: [facility] Work Phone: 2001 pneumococcal conjuga te vaccine, 7 valent Joseph Alaniz FUSING LINE INSPECTOR.[employer] Work Phone: [facility] Work Phone: 2001 poliovirus vaccine, inactivated Joseph Alaniz FUSING LINE INSPECTOR.[employer] Work Phone: [facility] Work Phone: Payers Date Payer Category Payer Self-pay [id number] 2022 Medicaid [id number] 2022 Medicaid [id number] 2019 Unknown [id number] Unknown [id number] Unknown [id number] Unknown [id number] Social History Date Type Detail Facility Start: 10-07-2021 Tobacco smoking status NHIS Never smoked tobacco [facility] Work Phone: Start: 10-07-2021 End: 09-24-2024 Tobacco use and exposure Smokeless tobacco non-user [facility] Work Phone: Start: 11-15-2021 End: 04-28-2025 Alcohol intake Ex-drinker (finding) [facility] Work Phone: Start: 08-28-2021 [facility] Work Phone: Start: 2001 Sex Assigned At Not on file [facility] Work Phone: Start: 07-05-2021 End: 05-25-2022 Tobacco smoking status NMIS Unknown if ever smoked [facility] Work Phone: Start: 2001 Sex Assigned At Female [facility] Start: 11-28-2022 Tobacco smoking status NHIS Occasional tobacco smoker [facility] End: 06-26-2019 History of tobacco use Cigarette Smoker [facility] Start: 11-28-2022 End: 05-06-2024 Alcohol intake Current drinker of alcohol (finding) [facility] Start: 11-28-2022 Tobacco Comment sometimes smokes . sometimes hits boyfriends vape [facility] Start: 04-05-2021 Alcohol Comment occ. [facility] Start: 10-11-2019 End: 04-23-2025 History of Social function [facility] Start: 10-11-2019 End: 04-23-2025 Alcohol Use Disorder Identification Test - Consumption [AUDIT-C] [facility] Start: 04-06-2015 Frequency of Alcohol Consumption 2-4 times a month [facility] Start: 11-13-2020 Gender identity Identifies as female gender (finding) [facility] Start: 11-13-2020 Sexual orientation Heterosexual (finding) [facility] Start: 05-03-2024 End: 09-24-2024 Tobacco smoking status NHIS Ex-smoker [facility] End: 06-26-2019 History of tobacco use Current smoker [facility] The thought of sahara denny myself has occurred to me Never [facility] Start: 09-24-2024 Education 13 [facility] How often to you hav e a drink containing alcohol? 2-4 times a month [facility] How many standard dr inks containing alcohol do you have on a typical day? 5 or 6 [facility] Goals Date Patient Goal Desired Activity /State Personal health goal Functional Status Date Assessment Result Facility 05-27-2022 Functional status Activity Ability Indepe ndent [facility] Work Phone: Mental Status Date Assessment Result Facility 05-27-2022 Cognitive function Awake;Alert;A ppropriate;Fol lows Commands [facility] Work Phone: Clinical Notes 10-25-2019 to 04-28-2025 Sarah Youngblood MD - 04/28/2025 4:04 PM EDTPrenatal Quick Notes - Sarah Youngblood MD - 04/28/2025 4:02 PM EDTPrenatal Quick Notes - Sarah Youngblood MD - 04/28/2025 4:02 PM EDT Note Date & Type Note Facility 04-28-2025 History of Present illness Narrative NST SUMMARY PROVIDER ASSESSMENT AND INTERPRETATION Indications for NST: Obesity Baseline: 125 Variability: Moderate Accelerations: Present 15 X 15 Decelerations: None Interpretation: Reactive SIGNATURE: Sarah Youngblood MD documented in this encounter [facility] 04-28-2025 Progress note Formatting of t his note might be different from the original. S: Michael Palma is a 24 year old female who presents at 05/13/2025, by Ultrasound for a routine visit. Denies headache, visual changes, chest pain, shortness of breath, vaginal bleeding, leakage of fluid, or dysuria. Feeling well, no complaints. Good movement, No contractions O: See flow sheet Gen: No apparent distress Abd: Gravid, nontender Reactive NST IOL for 39 weeks for LGA ASSESSMENT/PLAN: 1. 37 weeks gestation of ([facility]) - ICD9: V22.2, ICD10: Z3A.37 (primary diagnosis) - URINE OB DIP B/O 2. Supervision of high risk in second trimester ([facility]) - ICD9: V23.9, ICD10: O09.92 - URINE OB DIP B/O 3. Obesity in ([facility]) - ICD9: 649.10, ICD10: O99.210 Weekly NSTs Growth q 4 - URINE OB DIP B/O Sarah Youngblood MD [facility] 04-28-2025 Miscellaneous Notes S: Michael Palma is a 24 year old female who presents at 05/13/2025, by Ultrasound for a routine visit. Denies headache, visual changes, chest pain, shortness of breath, vaginal bleeding, leakage of fluid, or dysuria. Feeling well, no complaints. Good movement, No contractions O: See flow sheet Gen: No apparent distress Abd: Gravid, nontender Reactive NST IOL for 39 weeks for LGA ASSESSMENT/PLAN: 1. 37 weeks gestation of ([facility]) - ICD9: V22.2, ICD10: Z3A.37 (primary diagnosis) - URINE OB DIP B/O 2. Supervision of high risk in second trimester ([facility]) - ICD9: V23.9, ICD10: O09.92 - URINE OB DIP B/O 3. Obesity in ([facility]) - ICD9: 649.10, ICD10: O99.210 Weekly NSTs Growth q 4 - URINE OB DIP B/O Sarah Youngblood MD documented in this encounter [facility] 04-28-2025 Instructions Sabiha Escamilla MA - 04/28/2025 2:25 PM EDT SEQUENTIAL SCREENINGS The [facility] offers sequential screenings for women who are interested in screenings for chromosomal abnormalities and certain defects during a . The sequential screen combines ultrasound and blood tests to determine the risk of chromosomal abnormalities, including Down's Syndrome (Trisomy 21) and Trisomy 18, as well as open neural tube defects including spina bifida. Ultrasound examination is performed between 11 weeks and 13 weeks gestational age. Blood tests are drawn after the ultrasound and again later in the between 15 and 21 weeks gestational age. Please let your physician know if you are interested in this testing. It will require an appointment with our technicians and trades workers. This is not an ultrasound performed by a physician in our office during a routine visit. SIGNS AND SYMPTOMS OF LABOR 1. Contractions every 10 minutes or more often 2. Clear, pink, or brownish fluid (water) leaking from vagina 3. Feeling that baby is pushing down, pressure 4. Low, dull backache 5. Cramps that feel like a period 6. Cramps with or without diarrhea If you notice any of the above symptoms, contact our office at [phone] and ask to speak with a nurse. After hours, you can call doctors registry at [phone] OR call [facility] at [phone] and ask to have the doctor seasonal package handler paged. If you consider this an emergency, dial 6-1-8 or go to your nearest emergency department. NEED HELP? Are you dealing with a violent or abusive relationship? Are you a victim of rape or sexual assult? Call [facility] ([place]) 24 hour Crisis Hotline: 167.833.4634 or 135-567-4830. MANUAL Your Guide to a Healthy manual is now on-line. Visit [email or web address] Tomas to download your free copy documented in this encounter [facility] 04-23-2025 Note HNO ID: [id number] Author: ENMANUEL RODRIGUEZ MD Service: ? Author Type: Physician Type: Progress Notes Filed: 04/23/2025 11:03 Note Text: NST SUMMARY PROVIDER ASSESSMENT AND INTERPRETATION Michael Palma is a 24 year old female, , who is at 37w1d with an AMADOR of 05/13/2025, by Ultrasound dating method. Indications for NST: Obesity Baseline: 135 Variability: Moderate Accelerations: Present 15 X 15 Decelerations: None Contractions: TOCO: None Interpretation: Category I SIGNATURE: Enmanuel Rodriguez MD [facility] 04-18-2025 Note Indication Evaluation of growth history of LGA, Maternal obesity, BMI >35 Impression - Single, live, intrauterine . - presentation is cephalic. - The biometry is accelerated for the assigned gestational dating. - The EFW is 3615 g, at the 97%. AC is at the >99%. - The amniotic fluid volume is normal amount with an MVP of 6.9 cm and an CHRIS of 18.9 cm. - The placenta is anterior, fundal. - No malformations visualized on a limited survey as detailed below. Recommendations Additional follow-up as clinically indicated. Maternal Assessment Height 173 cm Height (ft) 5 ft Height (in) 8 in Physical Exam Initial weight (lb) 244 lb Initial BMI 37.10 kg/m Maternal assessment other: 2 Para 1 REMOTE READ Method Transabdominal ultrasound examination Block . Number of fetuses: 1 Dating LMP on: 07/22/2024 GA by LMP 38 w + 4 d AMADOR by LMP: 04/28/2025 GA by prior assessment 36 w + 3 d AMADOR by prior assessment: 05/13/2025 Ultrasound examination on: 04/18/2025 GA by U/S based upon: AC, BPD, Femur GA by U/S 37 w + 6 d AMADOR by U/S: 05/03/2025 Assigned: based on stated AMADOR, selected on 04/18/2025 Assigned GA 36 w + 3 d Assigned AMADOR: 05/13/2025 General Evaluation Cardiac activity present. FHR 155 bpm. movements: present. Presentation: cephalic Placenta: Placental site: anterior, fundal Umbilical cord: Cord vessels: 3 vessel cord Amniotic fluid: Amount of AF: normal amount. MVP 6.9 cm. CHRIS 18.9 cm. Q1 3.6 cm, Q2 4.3 cm, Q3 6.9 cm, Q4 4.2 cm Growth Overview Exam date GA BPD (mm) HC (mm) AC (mm) FL (mm) HL (mm) EFW (g) 12/27/2024 20w 3d 50.3 80% 193 81% 175.2 94% 36.9 95% 35.9 97% 470 99% 03/20/2025 32w 2d 89.6 >99% 333.9 99% 318.8 >99% 65.4 94% 2712 >99% 04/18/2025 36w 3d 95.1 98% 356 97% 356.8 >99% 69.2 55% 3615 97% Biometry Standard BPD 95.1 mm 38w 6d 98% Hadlock OFD 127.2 mm -/- 98% Nicolaides HC 356.0 mm -/- 97% Sha AC 356.8 mm 39w 4d >99% Hadlock Femur 69.2 mm 35w 1d 55% Sha EFW 3,615 g 40w 0d 97% Hadlock EFW (lb) 8 lb EFW (oz) 0 oz EFW by: Hadlock (HC-AC-FL) Extended Technical Sales Representatives 5.2 mm Extremities / Bony Struc FL / HC 0.19 Other Structures FHR 155 bpm Anatomy Lateral ventricles: normal Cavum septi pellucidi: normal Cerebellum: normal Cisterna magna: normal 4-chamber view: suboptimally visualized RVOT view: suboptimally visualized LVOT view: suboptimally visualized 3-vessel view: suboptimally visualized Heart / Thorax Situs: situs solitus (normal) Diaphragm: normal Stomach: normal Kidneys: normal Bladder: normal sex: male Wants to know sex: yes Performed By: Laura Olvera RDMS, RVT Read By: Regina Covington M.D. [facility] 04-18-2025 Progress note Formatting of t his note might be different from the original. DM-Pt doing well. Denies vaginal Bleeding, Leaking fluid, or regular Contractions. Pt reports good movement Physical Exam: Gen: female in no apparent distress Abd: soft, Gravid. Non tender to palpation. See flow sheet Participation of a fellow, resident, medical student, or advanced practice provider student in performing the sensitive examination was discussed with the patient or authorized client services representative. The patient or authorized client services representative has agreed to proceed with the sensitive examination. @ 36.3 weeks Assessment & Plan Supervision of high risk in second trimester ([facility]) Orders: URINE OB DIP B/O ROUTINE, GROUP B STREPTOCOCCUS BY PCR NON-STRESS TEST; Standing Hx of preeclampsia, prior , currently ([facility]) Orders: URINE OB DIP B/O ROUTINE, GROUP B STREPTOCOCCUS BY PCR LGA (large for gestational age) ([facility]) Official us pending but AC >99 and EFW 97%- will need to discuss possible CS if EFW >5000g. Considering membrane sweeps at 37 weeks. Orders: URINE OB DIP B/O ROUTINE, GROUP B STREPTOCOCCUS BY PCR Obesity in ([facility]) Weekly NSTs Growth today Orders: NON-STRESS TEST; Standing 36 weeks gestation of ([facility]) Kick counts and labor reviewed Orders: URINE OB DIP B/O ROUTINE, GROUP B STREPTOCOCCUS BY PCR Iveth Mcfarland MD [facility] 04-18-2025 Miscellaneous Notes DM-Pt doing well. Denies vaginal Bleeding, Leaking fluid, or regular Contractions. Pt reports good movement Physical Exam: Gen: female in no apparent distress Abd: soft, Gravid. Non tender to palpation. See flow sheet Participation of a fellow, resident, medical student, or advanced practice provider student in performing the sensitive examination was discussed with the patient or authorized client services representative. The patient or authorized client services representative has agreed to proceed with the sensitive examination. @ 36.3 weeks Assessment & Plan Supervision of high risk in second trimester ([facility]) Orders: URINE OB DIP B/O ROUTINE, GROUP B STREPTOCOCCUS BY PCR NON-STRESS TEST; Standing Hx of preeclampsia, prior , currently ([facility]) Orders: URINE OB DIP B/O ROUTINE, GROUP B STREPTOCOCCUS BY PCR LGA (large for gestational age) infant ([facility]) Official us pending but AC >99 and EFW 97%- will need to discuss possible CS if EFW >5000g. Considering membrane sweeps at 37 weeks. Orders: URINE OB DIP B/O ROUTINE, GROUP B STREPTOCOCCUS BY PCR Obesity in ([facility]) Weekly NSTs Growth today Orders: NON-STRESS TEST; Standing 36 weeks gestation of ([facility]) Kick counts and labor reviewed Orders: URINE OB DIP B/O ROUTINE, GROUP B STREPTOCOCCUS BY PCR Iveth Mcfarland MD documented in this encounter [facility] 04-18-2025 Instructions Sabiha Escamilla, AYALA - 04/18/2025 2:27 PM EDT SEQUENTIAL SCREENINGS The [facility] offers sequential screenings for women who are interested in screenings for chromosomal abnormalities and certain defects during a . The sequential screen combines ultrasound and blood tests to determine the risk of chromosomal abnormalities, including Down's Syndrome (Trisomy 21) and Trisomy 18, as well as open neural tube defects including spina bifida. Ultrasound examination is performed between 11 weeks and 13 weeks gestational age. Blood tests are drawn after the ultrasound and again later in the between 15 and 21 weeks gestational age. Please let your physician know if you are interested in this testing. It will require an appointment with our technicians and trades workers. This is not an ultrasound performed by a physician in our office during a routine visit. SIGNS AND SYMPTOMS OF LABOR 1. Contractions every 10 minutes or more often 2. Clear, pink, or brownish fluid (water) leaking from vagina 3. Feeling that baby is pushing down, pressure 4. Low, dull backache 5. Cramps that feel like a period 6. Cramps with or without diarrhea If you notice any of the above symptoms, contact our office at [phone] and ask to speak with a nurse. After hours, you can call doctors registry at [phone] OR call [facility] at [phone] and ask to have the doctor seasonal package handler paged. If you consider this an emergency, dial [phone]--1 or go to your nearest emergency department. NEED HELP? Are you dealing with a violent or abusive relationship? Are you a victim of rape or sexual assult? Call [facility] ([place]) 24 hour Crisis Hotline: 155.289.8978 or 318-268-5137. MANUAL Your Guide to a Healthy manual is now on-line. Visit [email or web address] to download your free copy documented in this encounter [facility] 04-07-2025 Telephone encounter Note 3rd risk assessment form submitted 04/07/2025. Sarah Mahmood RN [facility] 04-07-2025 Miscellaneous Notes 3rd risk assessment form submitted 04/07/2025. Sarah Mahmood RN documented in this encounter [facility] 04-04-2025 Progress note Formatting of t his note might be different from the original. S: Michael Palma is a 24 year old female who presents at 05/13/2025, by Ultrasound for a routine visit. Denies headache, visual changes, chest pain, shortness of breath, vaginal bleeding, leakage of fluid, or dysuria. Feeling well, no complaints. Good movement, No contractions O: See flow sheet Gen: No apparent distress Abd: Gravid, nontender Poison LUAN on legs using calamone lotion LGA- US next visit ASSESSMENT/PLAN: 1. Supervision of high risk in second trimester ([facility]) - ICD9: V23.9, ICD10: O09.92 (primary diagnosis) - URINE OB DIP B/O 2. Hx of preeclampsia, prior , currently ([facility]) - ICD9: V23.49, ICD10: O09.299 - URINE OB DIP B/O 3. LGA (large for gestational age) ([facility]) - ICD9: 766.1, ICD10: P08.1 US next visit - URINE OB DIP B/O 4. Traumatic - ICD9: 767.9, ICD10: P15.9 5. Anxiety and depression - ICD9: 300.00, 311, ICD10: F41.9, F32.A Stable 6. 34 weeks gestation of ([facility]) - ICD9: V22.2, ICD10: Z3A.34 - URINE OB DIP B/O Sarah Youngblood MD [facility] 04-04-2025 Miscellaneous Notes S: Michael Palma is a 24 year old female who presents at 05/13/2025, by Ultrasound for a routine visit. Denies headache, visual changes, chest pain, shortness of breath, vaginal bleeding, leakage of fluid, or dysuria. Feeling well, no complaints. Good movement, No contractions O: See flow sheet Gen: No apparent distress Abd: Gravid, nontender Poison LUAN on legs using calamone lotion LGA- US next visit ASSESSMENT/PLAN: 1. Supervision of high risk in second trimester ([facility]) - ICD9: V23.9, ICD10: O09.92 (primary diagnosis) - URINE OB DIP B/O 2. Hx of preeclampsia, prior , currently ([facility]) - ICD9: V23.49, ICD10: O09.299 - URINE OB DIP B/O 3. LGA (large for gestational age) infant ([facility]) - ICD9: 766.1, ICD10: P08.1 US next visit - URINE OB DIP B/O 4. Traumatic - ICD9: 767.9, ICD10: P15.9 5. Anxiety and depression - ICD9: 300.00, 311, ICD10: F41.9, F32.A Stable 6. 34 weeks gestation of ([facility]) - ICD9: V22.2, ICD10: Z3A.34 - URINE OB DIP B/O Sarah Youngblood MD documented in this encounter [facility] 04-04-2025 Instructions Marcia Yousif MA - 04/04/2025 9:30 AM EDT SEQUENTIAL SCREENINGS The [facility] offers sequential screenings for women who are interested in screenings for chromosomal abnormalities and certain defects during a . The sequential screen combines ultrasound and blood tests to determine the risk of chromosomal abnormalities, including Down's Syndrome (Trisomy 21) and Trisomy 18, as well as open neural tube defects including spina bifida. Ultrasound examination is performed between 11 weeks and 13 weeks gestational age. Blood tests are drawn after the ultrasound and again later in the between 15 and 21 weeks gestational age. Please let your physician know if you are interested in this testing. It will require an appointment with our technicians and trades workers. This is not an ultrasound performed by a physician in our office during a routine visit. SIGNS AND SYMPTOMS OF LABOR 1. Contractions every 10 minutes or more often 2. Clear, pink, or brownish fluid (water) leaking from vagina 3. Feeling that baby is pushing down, pressure 4. Low, dull backache 5. Cramps that feel like a period 6. Cramps with or without diarrhea If you notice any of the above symptoms, contact our office at [phone] and ask to speak with a nurse. After hours, you can call doctors registry at [phone] OR call [facility] at [phone] and ask to have the doctor seasonal package handler paged. If you consider this an emergency, dial 9-1-5 or go to your nearest emergency department. NEED HELP? Are you dealing with a violent or abusive relationship? Are you a victim of rape or sexual assult? Call [facility] ([place]) 24 hour Crisis Hotline: 399.967.2049 or 533-013-4530. MANUAL Your Guide to a Healthy manual is now on-line. Visit [email or web address] to download your free copy documented in this encounter [facility] 03-20-2025 Telephone encounter Note Noted. Thanks! Ny Ulloa MD [facility] 03-20-2025 Miscellaneous Notes Noted. Thanks! Ny Ulloa MD documented in this encounter [facility] 03-20-2025 Note Indication Evaluation of growth Maternal obesity, BMI >35 Impression - Single, live, intrauterine . - presentation is cephalic. - The biometry is accelerated for the assigned gestational dating. - The EFW is 2712 g, at the >99%. AC is at the >99%. - The amniotic fluid volume is normal amount with an MVP of 5.5 cm and an CHRSI of 16.4 cm. - The placenta is anterior, fundal. - No malformations visualized on a limited survey as detailed below. Recommendations Growth in four weeks Maternal Assessment Height 173 cm Height (ft) 5 ft Height (in) 8 in Physical Exam Initial weight (lb) 244 lb Initial BMI 37.10 kg/m Maternal assessment other: 2 Para 1 REMOTE READ Method Transabdominal ultrasound examination Block . Number of fetuses: 1 Dating LMP on: 07/22/2024 GA by LMP 34 w + 3 d AMADOR by LMP: 04/28/2025 GA by prior assessment 32 w + 2 d AMADOR by prior assessment: 05/13/2025 Ultrasound examination on: 03/20/2025 GA by U/S based upon: AC, BPD, Femur, HC GA by U/S 35 w + 6 d AMADOR by U/S: 04/18/2025 Assigned: based on stated AMADOR, selected on 12/27/2024 Assigned GA 32 w + 2 d Assigned AMADOR: 05/13/2025 General Evaluation Cardiac activity present. FHR 148 bpm. movements: present. Presentation: cephalic Placenta: Placental site: anterior, fundal Umbilical cord: Cord vessels: 3 vessel cord Amniotic fluid: Amount of AF: normal amount. MVP 5.5 cm. CHRIS 16.4 cm. Q1 4.8 cm, Q2 5.5 cm, Q3 1.7 cm, Q4 4.4 cm Growth Overview Exam date GA BPD (mm) HC (mm) AC (mm) FL (mm) HL (mm) EFW (g) 12/27/2024 20w 3d 50.3 80% 193 81% 175.2 94% 36.9 95% 35.9 97% 470 99% 03/20/2025 32w 2d 89.6 >99% 333.9 99% 318.8 >99% 65.4 94% 2712 >99% Biometry Standard BPD 89.6 mm 36w 2d >99% Hadlock OFD 119.1 mm -/- 99% Nicolaides HC 333.9 mm 37w 5d 99% Sha AC 318.8 mm 35w 6d >99% Hadlock Femur 65.4 mm 33w 3d 94% Sha EFW 2,712 g 35w 4d >99% Hadlock EFW (lb) 6 lb EFW (oz) 0 oz EFW by: Hadlock (HC-AC-FL) Extended [employer] 6.0 mm Extremities / Bony Struc FL / HC 0.20 Other Structures FHR 148 bpm Anatomy Lateral ventricles: normal Cavum septi pellucidi: normal Cerebellum: normal Cisterna magna: normal 4-chamber view: suboptimally visualized RVOT view: suboptimally visualized LVOT view: suboptimally visualized 3-vessel view: suboptimally visualized Heart / Thorax Situs: situs solitus (normal) Diaphragm: normal Stomach: normal Kidneys: normal Bladder: normal sex: male Wants to know sex: yes Performed By: Laura Olvera RDMS, RVT Read By: Regina Covington M.D. [facility] 03-20-2025 Miscellaneous Notes KJ - S: Michael denies LOF, contractions or vaginal bleeding. O: 32w2d, see flow sheet SENSITIVE EXAM: Sensitive exam not performed. A/P: Assessment & Plan Hx of preeclampsia, prior , currently ([facility]) LGA (large for gestational age) infant ([facility]) EFW >99%. Discussed 39 week IOL. Repeat growth US in 4 weeks. Reviewed PTL & FM precautions. Ny Ulloa MD documented in this encounter [facility] 03-20-2025 Progress note Formatting of t his note might be different from the original. KJ - S: Michael denies LOF, contractions or vaginal bleeding. O: 32w2d, see flow sheet SENSITIVE EXAM: Sensitive exam not performed. A/P: Assessment & Plan Hx of preeclampsia, prior , currently ([facility]) LGA (large for gestational age) ([facility]) EFW >99%. Discussed 39 week IOL. Repeat growth US in 4 weeks. Reviewed PTL & FM precautions. Ny Ulloa MD [facility] 03-20-2025 Instructions Magi Landon MA - 03/20/2025 9:48 AM EDT SEQUENTIAL SCREENINGS The [facility] offers sequential screenings for women who are interested in screenings for chromosomal abnormalities and certain defects during a . The sequential screen combines ultrasound and blood tests to determine the risk of chromosomal abnormalities, including Down's Syndrome (Trisomy 21) and Trisomy 18, as well as open neural tube defects including spina bifida. Ultrasound examination is performed between 11 weeks and 13 weeks gestational age. Blood tests are drawn after the ultrasound and again later in the between 15 and 21 weeks gestational age. Please let your physician know if you are interested in this testing. It will require an appointment with our technicians and trades workers. This is not an ultrasound performed by a physician in our office during a routine visit. SIGNS AND SYMPTOMS OF LABOR 1. Contractions every 10 minutes or more often 2. Clear, pink, or brownish fluid (water) leaking from vagina 3. Feeling that baby is pushing down, pressure 4. Low, dull backache 5. Cramps that feel like a period 6. Cramps with or without diarrhea If you notice any of the above symptoms, contact our office at [phone] and ask to speak with a nurse. After hours, you can call doctors registry at [phone] OR call [facility] at [phone] and ask to have the doctor seasonal package handler paged. If you consider this an emergency, dial 9-1-2 or go to your nearest emergency department. NEED HELP? Are you dealing with a violent or abusive relationship? Are you a victim of rape or sexual assult? Call [facility] ([place]) 24 hour Crisis Hotline: 900.793.2546 or 961-488-7356. MANUAL Your Guide to a Healthy manual is now on-line. Visit [email or web address] to download your free copy documented in this encounter [facility] 03-07-2025 Progress note Formatting of t his note might be different from the original. S: Michael Palma is a 24 year old female who presents at 05/13/2025, by Ultrasound for a routine visit. Denies headache, visual changes, chest pain, shortness of breath, vaginal bleeding, leakage of fluid, or dysuria. Feeling well, no complaints. Good movement, No contractions O: See flow sheet Gen: No apparent distress Abd: Gravid, nontender Growth US next visit ASSESSMENT/PLAN: 1. 30 weeks gestation of ([facility]) - ICD9: V22.2, ICD10: Z3A.30 (primary diagnosis) 2. Hx of preeclampsia, prior , currently ([facility]) - ICD9: V23.49, ICD10: O09.299 Normal BP Sarah Youngblood MD [facility] 03-07-2025 Miscellaneous Notes S: Michael Palma is a 24 year old female who presents at 05/13/2025, by Ultrasound for a routine visit. Denies headache, visual changes, chest pain, shortness of breath, vaginal bleeding, leakage of fluid, or dysuria. Feeling well, no complaints. Good movement, No contractions O: See flow sheet Gen: No apparent distress Abd: Gravid, nontender Growth US next visit ASSESSMENT/PLAN: 1. 30 weeks gestation of ([facility]) - ICD9: V22.2, ICD10: Z3A.30 (primary diagnosis) 2. Hx of preeclampsia, prior , currently ([facility]) - ICD9: V23.49, ICD10: O09.299 Normal BP Sarah Youngblood MD documented in this encounter [facility] 03-07-2025 Instructions Francia Cosme LPN - 03/07/2025 1:49 PM EDT SEQUENTIAL SCREENINGS The [facility] offers sequential screenings for women who are interested in screenings for chromosomal abnormalities and certain defects during a . The sequential screen combines ultrasound and blood tests to determine the risk of chromosomal abnormalities, including Down's Syndrome (Trisomy 21) and Trisomy 18, as well as open neural tube defects including spina bifida. Ultrasound examination is performed between 11 weeks and 13 weeks gestational age. Blood tests are drawn after the ultrasound and again later in the between 15 and 21 weeks gestational age. Please let your physician know if you are interested in this testing. It will require an appointment with our technicians and trades workers. This is not an ultrasound performed by a physician in our office during a routine visit. SIGNS AND SYMPTOMS OF LABOR 1. Contractions every 10 minutes or more often 2. Clear, pink, or brownish fluid (water) leaking from vagina 3. Feeling that baby is pushing down, pressure 4. Low, dull backache 5. Cramps that feel like a period 6. Cramps with or without diarrhea If you notice any of the above symptoms, contact our office at [phone] and ask to speak with a nurse. After hours, you can call doctors registry at [phone] OR call [facility] at [phone] and ask to have the doctor seasonal package handler paged. If you consider this an emergency, dial 1-1-0 or go to your nearest emergency department. NEED HELP? Are you dealing with a violent or abusive relationship? Are you a victim of rape or sexual assult? Call [facility] ([place]) 24 hour Crisis Hotline: 791.934.2302 or 158-249-7776. MANUAL Your Guide to a Healthy manual is now on-line. Visit [email or web address] to download your free copy documented in this encounter [facility] 02-24-2025 Telephone encounter Note 2nd risk assessment form submitted 02/24/2025. Sarah Mahmood RN [facility] 02-24-2025 Miscellaneous Notes 2nd risk assessment form submitted 02/24/2025. Sarah Mahmood, RN documented in this encounter [facility] 02-21-2025 Progress note Formatting of t his note might be different from the original. S: Michael Palma is a 24 year old female who presents at 28 weeks gestation for a routine visit. Has not completed 1 hour GCT yet but planning on it today. Positive movements. Denies headache, visual changes, chest pain, shortness of breath, vaginal bleeding, leakage of fluid, or dysuria. Feeling well, no complaints. O: See flow sheet Gen: No apparent distress Abd: Gravid, non tender S=D. No weight gain this ASSESSMENT/PLAN: 1. Screening for diabetes mellitus 2. Supervision of high risk in second trimester 3. Hx of preeclampsia, prior , currently 4. Traumatic 5. Anxiety and depression 6. 28 weeks gestation of 7. Obesity -Pregravid BMI 37 - Growth US at 32 weeks - order placed - 1 hour GCT, CBC, and RPR today - Rh positive - TDAP Declines - LARC form reviewed and signed. Patient declines- planning on using pill - Depression screen negative - Opioid screen negative - plan form discussed and given to patient. Patient desires epidural, breast feeding and circumcision - PTL precautions and kick counts reviewed - RTO- 2 weeks or sooner if needed Mayelin Duran APRN.CNM [facility] 02-21-2025 Miscellaneous Notes S: Michael Palma is a 24 year old female who presents at 28 weeks gestation for a routine visit. Has not completed 1 hour GCT yet but planning on it today. Positive movements. Denies headache, visual changes, chest pain, shortness of breath, vaginal bleeding, leakage of fluid, or dysuria. Feeling well, no complaints. O: See flow sheet Gen: No apparent distress Abd: Gravid, non tender S=D. No weight gain this ASSESSMENT/PLAN: 1. Screening for diabetes mellitus 2. Supervision of high risk in second trimester 3. Hx of preeclampsia, prior , currently 4. Traumatic 5. Anxiety and depression 6. 28 weeks gestation of 7. Obesity -Pregravid BMI 37 - Growth US at 32 weeks - order placed - 1 hour GCT, CBC, and RPR today - Rh positive - TDAP Declines - LARC form reviewed and signed. Patient declines- planning on using pill - Depression screen negative - Opioid screen negative - plan form discussed and given to patient. Patient desires epidural, breast feeding and circumcision - PTL precautions and kick counts reviewed - RTO- 2 weeks or sooner if needed Mayelin Duran APRN.CNM documented in this encounter [facility] 02-21-2025 Instructions Cayetano Doran MA - 02/21/2025 11:00 AM EDT SEQUENTIAL SCREENINGS The [facility] offers sequential screenings for women who are interested in screenings for chromosomal abnormalities and certain defects during a . The sequential screen combines ultrasound and blood tests to determine the risk of chromosomal abnormalities, including Down's Syndrome (Trisomy 21) and Trisomy 18, as well as open neural tube defects including spina bifida. Ultrasound examination is performed between 11 weeks and 13 weeks gestational age. Blood tests are drawn after the ultrasound and again later in the between 15 and 21 weeks gestational age. Please let your physician know if you are interested in this testing. It will require an appointment with our technicians and trades workers. This is not an ultrasound performed by a physician in our office during a routine visit. SIGNS AND SYMPTOMS OF LABOR 1. Contractions every 10 minutes or more often 2. Clear, pink, or brownish fluid (water) leaking from vagina 3. Feeling that baby is pushing down, pressure 4. Low, dull backache 5. Cramps that feel like a period 6. Cramps with or without diarrhea If you notice any of the above symptoms, contact our office at [phone] and ask to speak with a nurse. After hours, you can call doctors registry at [phone] OR call [facility] at [phone] and ask to have the doctor seasonal package handler paged. If you consider this an emergency, dial 05-19- or go to your nearest emergency department. NEED HELP? Are you dealing with a violent or abusive relationship? Are you a victim of rape or sexual assult? Call [facility] ([place]) 24 hour Crisis Hotline: 891.625.2026 or 862-883-2567. MANUAL Your Guide to a Healthy manual is now on-line. Visit [email or web address] to download your free copy documented in this encounter [facility] 01-24-2025 Progress note Formatting of t his note might be different from the original. EDDA-S: Michael Palma is a 24 year old female who presents at 24w3d with AMADOR:05/13/2025, by Ultrasound for a routine visit. Denies headache, visual changes, chest pain, shortness of breath, vaginal bleeding, leakage of fluid, or dysuria. Feeling well, no complaints. O: See flow sheet Gen: No apparent distress Abd: Gravid, nontender ASSESSMENT/PLAN: 1. Supervision of high risk in second trimester -Continue PNV -1hr GCT next visit 2. 24 weeks gestation of 3. Obesity affecting in second trimester, unspecified obesity type -Pregravid BMI 37 -Growth US every 4 weeks starting at 32 weeks -NST weekly at 36 wk 4. Hx of preeclampsia, prior , currently -Continue ASA 5. Traumatic . -[facility] referral 6. Anxiety and depression -No medication, coping well 7. Heartburn during in first trimester -Protonix affective PTL precautions reviewed and when to call RTO in 4 weeks Ignacia Lyon APRN.CNM [facility] 01-24-2025 Miscellaneous Notes EDDA-S: Michael Palma is a 24 year old female who presents at 24w3d with AMADOR:05/13/2025, by Ultrasound for a routine visit. Denies headache, visual changes, chest pain, shortness of breath, vaginal bleeding, leakage of fluid, or dysuria. Feeling well, no complaints. O: See flow sheet Gen: No apparent distress Abd: Gravid, nontender ASSESSMENT/PLAN: 1. Supervision of high risk in second trimester -Continue PNV -1hr GCT next visit 2. 24 weeks gestation of 3. Obesity affecting in second trimester, unspecified obesity type -Pregravid BMI 37 -Growth US every 4 weeks starting at 32 weeks -NST weekly at 36 wk 4. Hx of preeclampsia, prior , currently -Continue ASA 5. Traumatic . -[facility] referral 6. Anxiety and depression -No medication, coping well 7. Heartburn during in first trimester -Protonix affective PTL precautions reviewed and when to call RTO in 4 weeks Ignacia Lyon APRN.CNM documented in this encounter [facility] 01-24-2025 Instructions Ignacia Lyon APRN.CNM - 01/24/2025 2:10 PM EDT SEQUENTIAL SCREENINGS The [facility] offers sequential screenings for women who are interested in screenings for chromosomal abnormalities and certain defects during a . The sequential screen combines ultrasound and blood tests to determine the risk of chromosomal abnormalities, including Down's Syndrome (Trisomy 21) and Trisomy 18, as well as open neural tube defects including spina bifida. Ultrasound examination is performed between 11 weeks and 13 weeks gestational age. Blood tests are drawn after the ultrasound and again later in the between 15 and 21 weeks gestational age. Please let your physician know if you are interested in this testing. It will require an appointment with our technicians and trades workers. This is not an ultrasound performed by a physician in our office during a routine visit. SIGNS AND SYMPTOMS OF LABOR 1. Contractions every 10 minutes or more often 2. Clear, pink, or brownish fluid (water) leaking from vagina 3. Feeling that baby is pushing down, pressure 4. Low, dull backache 5. Cramps that feel like a period 6. Cramps with or without diarrhea If you notice any of the above symptoms, contact our office at [phone] and ask to speak with a nurse. After hours, you can call doctors registry at [phone] OR call [facility] at [phone] and ask to have the doctor seasonal package handler paged. If you consider this an emergency, dial 9--1 or go to your nearest emergency department. NEED HELP? Are you dealing with a violent or abusive relationship? Are you a victim of rape or sexual assult? Call [facility] ([place]) 24 hour Crisis Hotline: 825.494.2303 or 525-457-4021. MANUAL Your Guide to a Healthy manual is now on-line. Visit [email or web address] to download your free copy ROUTINE GLUCOSE SCREENING IN can cause a woman who has perfectly normal blood sugars to turn (temporarily) diabetic, otherwise known as having gestational diabetes. This is because hormones from the placenta sometimes interfere with the action of insulin, the hormone responsible for the regulation of blood sugar. Gestational diabetes can have no symptoms, yet can complicate the . Identifying who has developed diabetes of helps the physician protect the fetus from the bad effects of high maternal blood sugars. Since you cannot tell who may become diabetic in , most practitioners test all women for gestational diabetes. The test isn't done until the early third trimester, because many women who will develop gestational diabetes don't get it until late in the . Two stages of glucose tolerance testing One-hour glucose testing This is a screening test done around 24-28 weeks gestation. We ask you to drink a solution of sugar (glucose) and then, one hour later, get blood drawn to check the glucose level. This tests how your body has handled the sugar solution. If the blood sugar level is over a certain value, more definitive testing is usually needed. Three-hour glucose tolerance test There is some overlap in blood sugar results between women with gestational diabetes and women who are not diabetic. The one-hour glucose test really just identifies the group of mothers who need to proceed to the more complicated (and more definitive) oral glucose tolerance test. This test usually requires a three-day special diet, followed by drinking more of the glucose solution. The blood is drawn four times: once before drinking the glucose (when she is fasting) then at one, two and three hours after the glucose solution is consumed. If two values are above a certain threshold, gestational diabetes is diagnosed. HOW TO TAKE THIS TEST At [facility], the procedure is as follows: come about 15 minutes early for your 28 week visit. Don't eat anything sugary that day, but complete fasting is not necessary. Go to the lab at A-15 or S-15, tell them your name and let them watch you drink the Glucola. They will tell you went to come back for the blood draw. IF THEY DON'T HAVE THE ORDER IN THE COMPUTER--go to a house phone, call [phone] or [phone] and ask the nurse to put the order in. After drinking the glucola, come to your regular appointment, making sure you return to the lab at the right time. You may call our office for the results the next day, if you are interested: [phone]. We will call you if further testing is required. documented in this encounter [facility] 12-30-2024 Progress note Formatting of t his note might be different from the original. Anatomy ultrasound reviewed. No abnormalities identified. Follow up as clinically indicated. Please place copy in ob chart. Antoinette Dickerson MD [facility] Work Phone: 12-30-2024 Miscellaneous Notes Anatomy ultrasound reviewed. No abnormalities identified. Follow up as clinically indicated. Please place copy in ob chart. Antoinette Dickerson MD documented in this encounter [facility] 12-27-2024 Progress note Formatting of t his note might be different from the original. S: Michael Palma is a 24 year old female who presents at 20 weeks gestation for a routine visit. Just completed anatomy US. Feeling occasional flutters. Anterior placenta. Denies headache, visual changes, chest pain, shortness of breath, vaginal bleeding, leakage of fluid, or dysuria. O: See flow sheet Gen: No apparent distress Abd: Gravid, nontender ASSESSMENT/PLAN: 1. Supervision of high risk in second trimester 2. Hx of preeclampsia, prior , currently 3. Obesity affecting in second trimester, unspecified obesity type 4. 20 weeks gestation of 5. Traumatic experience - Pregravid BMI 37- Will start screenings at 32 weeks - Continued acid reflux with no relief from Pepcid- will try Protonix 20 mg XR PO- RX sent - Occasional nausea - continue Zofran 4 mg PO PRN - ASA daily - Discussed first labor and delivery experience with patient- felt it was a traumatic experience. Feeling increased anxiety over going into this delivery. - Interested in consult m-power to work through some issues that she is carrying from last delivery - Support provided - RTO 4 weeks Mayelin Duran APRN.CNM [facility] 12-27-2024 Miscellaneous Notes S: Michael Palma is a 24 year old female who presents at 20 weeks gestation for a routine visit. Just completed anatomy US. Feeling occasional flutters. Anterior placenta. Denies headache, visual changes, chest pain, shortness of breath, vaginal bleeding, leakage of fluid, or dysuria. O: See flow sheet Gen: No apparent distress Abd: Gravid, nontender ASSESSMENT/PLAN: 1. Supervision of high risk in second trimester 2. Hx of preeclampsia, prior , currently 3. Obesity affecting in second trimester, unspecified obesity type 4. 20 weeks gestation of 5. Traumatic experience - Pregravid BMI 37- Will start screenings at 32 weeks - Continued acid reflux with no relief from Pepcid- will try Protonix 20 mg XR PO- RX sent - Occasional nausea - continue Zofran 4 mg PO PRN - ASA daily - Discussed first labor and delivery experience with patient- felt it was a traumatic experience. Feeling increased anxiety over going into this delivery. - Interested in consult m-power to work through some issues that she is carrying from last delivery - Support provided - RTO 4 weeks Mayelin Duran APRN.CNM documented in this encounter [facility] 12-27-2024 Instructions Cayetano Doran MA - 12/27/2024 1:54 PM EDT SEQUENTIAL SCREENINGS The [facility] offers sequential screenings for women who are interested in screenings for chromosomal abnormalities and certain defects during a . The sequential screen combines ultrasound and blood tests to determine the risk of chromosomal abnormalities, including Down's Syndrome (Trisomy 21) and Trisomy 18, as well as open neural tube defects including spina bifida. Ultrasound examination is performed between 11 weeks and 13 weeks gestational age. Blood tests are drawn after the ultrasound and again later in the between 15 and 21 weeks gestational age. Please let your physician know if you are interested in this testing. It will require an appointment with our technicians and trades workers. This is not an ultrasound performed by a physician in our office during a routine visit. SIGNS AND SYMPTOMS OF LABOR 1. Contractions every 10 minutes or more often 2. Clear, pink, or brownish fluid (water) leaking from vagina 3. Feeling that baby is pushing down, pressure 4. Low, dull backache 5. Cramps that feel like a period 6. Cramps with or without diarrhea If you notice any of the above symptoms, contact our office at [phone] and ask to speak with a nurse. After hours, you can call doctors registry at [phone] OR call [facility] at [phone] and ask to have the doctor seasonal package handler paged. If you consider this an emergency, dial 9-1-3 or go to your nearest emergency department. NEED HELP? Are you dealing with a violent or abusive relationship? Are you a victim of rape or sexual assult? Call [facility] ([facility] 24 hour Crisis Hotline: 614.846.3492 or 132-518-7495. MANUAL Your Guide to a Healthy manual is now on-line. Visit [email or web address] [email or web address] to download your free copy documented in this encounter [facility] 12-04-2024 Note HNO ID: [id number] Author: JOSEPH ALANIZ APRN.[employer] Service: ? Author Type: Nurse Practitioner Type: Progress Notes Filed: 12/04/2024 13:34 Note Text: Subjective HPI Nontoxic-appearing 24-year-old female who is 17 weeks presents urgent care chief complaint sinus pressure cough. Has had cold-like symptoms for 3 weeks. States over the last 4 to 5 days sinus pressure has worsened. OTC medication Tylenol helps some. Denies any fevers. No productive cough chest pain or shortness of breath. No hemoptysis. No nausea or vomiting that is new. No change in urinary patterns. Past medical history prescription medications allergies reviewed. .Patient presents with: Sinus Problem: sinus pressure, drainage, ear pressure, chest congestion, cough x 3 weeks, 17 weeks PAST MEDICAL HISTORY Diagnosis Date Allergic rhinitis Anemia During first Asthma Concussion 2019 Depression Elevated liver enzymes 09/2019 Due to mono History of depression First History of depression Hx of preeclampsia, prior , currently During first Hx of preeclampsia, prior , currently Mononucleosis 09/2019 Positive JESUS (antinuclear antibody) Postconcussive syndrome PAST SURGICAL HISTORY Procedure Laterality Date NEXPLANON INSERTION 06/14/2022 NEXPLANON REMOVAL 05/06/2024 ALLERGIES Patient has no known allergies. MEDICATIONS ondansetron orally disintegrating (ZOFRAN ODT) 4 mg disintegrating tablet Take 1 tablet by mouth every 8 hours as needed for nausea/vomiting. aspirin, enteric coated (ECOTRIN LOW STRENGTH) 81 mg EC tablet Take 1 tablet by mouth once daily. promethazine (PHENERGAN) 25 mg tablet Take 1 tablet by mouth every 6 hours as needed. famotidine (PEPCID) 20 mg tablet Take 1 tablet by mouth two times a day. 25/iron/folate 6/dha (PRENA1 ORAL) Take 1 tablet by mouth once daily. albuterol HFA (PROAIR HFA) 90 mcg/actuation inhaler Inhale 2 Puffs as instructed every 6 hours as needed. FAMILY HISTORY Problem Relation Age of Onset No Known Problems Mother No Known Problems Father Alzheimer's Disease Maternal Grandmother Heart Maternal Grandfather Heart Paternal Grandfather No Known Problems Half-sister No Known Problems Half-sister No Known Problems Half-brother Social History Tobacco Use Smoking status: Former Current packs/day: 0.00 Types: Cigarettes Quit date: 06/26/2019 Years since quittin.4 Smokeless tobacco: Never Tobacco comments: sometimes smokes . sometimes hits boyfriends vape Vaping Use Vaping status: Former Substances: Nicotine, Flavoring Devices: Disposable Substance Use Topics Alcohol use: Not Currently Alcohol/week: 1.0 standard drink of alcohol Types: 1 Glasses of wine per week Drug use: Not Currently Types: Marijuana BP 124/76 Pulse 93 Temp 37.2 ?C (98.9 ?F) Resp 18 Wt 106.2 kg (234 lb 2.1 oz) LMP 07/22/2024 SpO2 98% BMI 36.10 kg/m? Review of Systems Constitutional: Negative for chills, fever and malaise/fatigue. HENT: Positive for congestion and sinus pain. Negative for ear discharge, ear pain and sore throat. Eyes: Negative for blurred vision, pain, discharge and redness. Respiratory: Positive for cough. Negative for hemoptysis, sputum production, shortness of breath, wheezing and stridor. Cardiovascular: Negative for chest pain. Gastrointestinal: Negative for abdominal pain, diarrhea, nausea and vomiting. Musculoskeletal: Negative for myalgias. Skin: Negative for itching and rash. Neurological: Negative for dizziness and headaches. Objective Physical Exam HENT: Head: Normocephalic. Jaw: No trismus, tenderness, swelling or pain on movement. Right Ear: Tympanic membrane, ear canal and external ear normal. Left Ear: Tympanic membrane, ear canal and external ear normal. Nose: Congestion present. Right Sinus: Maxillary sinus tenderness present. Left Sinus: Maxillary sinus tenderness present. Mouth/Throat: Mouth: Mucous membranes are moist. Pharynx: Oropharynx is clear. Uvula midline. No oropharyngeal exudate or posterior oropharyngeal erythema. Eyes: Pupils: Pupils are equal, round, and reactive to light. Cardiovascular: Rate and Rhythm: Normal rate. Pulmonary: Effort: Pulmonary effort is normal. No accessory muscle usage, respiratory distress or retractions. Breath sounds: No stridor. No wheezing, rhonchi or rales. Abdominal: Palpations: Abdomen is soft. Tenderness: There is no abdominal tenderness. There is no guarding or rebound. Musculoskeletal: Cervical back: No erythema or tenderness. No pain with movement. Normal range of motion. Lymphadenopathy: Cervical: No cervical adenopathy. Neurological: General: No focal deficit present. Mental Status: She is alert and oriented to person, place, and time. Mental status is at baseline. ASSESSMENT/ELENA (more content not included)... [facility] 12-04-2024 History of Present illness Narrative Subjective HPI Nontoxic-appearing 24-year-old female who is 17 weeks presents urgent care chief complaint sinus pressure cough. Has had cold-like symptoms for 3 weeks. States over the last 4 to 5 days sinus pressure has worsened. OTC medication Tylenol helps some. Denies any fevers. No productive cough chest pain or shortness of breath. No hemoptysis. No nausea or vomiting that is new. No change in urinary patterns. Past medical history prescription medications allergies reviewed. .Patient presents with: Sinus Problem: sinus pressure, drainage, ear pressure, chest congestion, cough x 3 weeks, 17 weeks PAST MEDICAL HISTORY Diagnosis Date Allergic rhinitis Anemia During first Asthma Concussion 2018 Depression Elevated liver enzymes 09/2019 Due to mono History of depression First History of depression Hx of preeclampsia, prior , currently During first Hx of preeclampsia, prior , currently Mononucleosis 09/2019 Positive JESUS (antinuclear antibody) Postconcussive syndrome PAST SURGICAL HISTORY Procedure Laterality Date NEXPLANON INSERTION 06/14/2022 NEXPLANON REMOVAL 05/06/2024 ALLERGIES Patient has no known allergies. MEDICATIONS ondansetron orally disintegrating (ZOFRAN ODT) 4 mg disintegrating tablet Take 1 tablet by mouth every 8 hours as needed for nausea/vomiting. aspirin, enteric coated (ECOTRIN LOW STRENGTH) 81 mg EC tablet Take 1 tablet by mouth once daily. promethazine (PHENERGAN) 25 mg tablet Take 1 tablet by mouth every 6 hours as needed. famotidine (PEPCID) 20 mg tablet Take 1 tablet by mouth two times a day. 25/iron/folate 6/dha (PRENA1 ORAL) Take 1 tablet by mouth once daily. albuterol HFA (PROAIR HFA) 90 mcg/actuation inhaler Inhale 2 Puffs as instructed every 6 hours as needed. FAMILY HISTORY Problem Relation Age of Onset No Known Problems Mother No Known Problems Father Alzheimer's Disease Maternal Grandmother Heart Maternal Grandfather Heart Paternal Grandfather No Known Problems Half-sister No Known Problems Half-sister No Known Problems Half-brother Social History Tobacco Use Smoking status: Former Current packs/day: 0.00 Types: Cigarettes Quit date: 06/26/2019 Years since quittin.4 Smokeless tobacco: Never Tobacco comments: sometimes smokes . sometimes hits boyfriends vape Vaping Use Vaping status: Former Substances: Nicotine, Flavoring Devices: Disposable Substance Use Topics Alcohol use: Not Currently Alcohol/week: 1.0 standard drink of alcohol Types: 1 Glasses of wine per week Drug use: Not Currently Types: Marijuana BP 124/76 Pulse 93 Temp 37.2 C (98.9 F) Resp 18 Wt 106.2 kg (234 lb 2.1 oz) LMP 07/22/2024 SpO2 98% BMI 36.10 kg/m Review of Systems Constitutional: Negative for chills, fever and malaise/fatigue. HENT: Positive for congestion and sinus pain. Negative for ear discharge, ear pain and sore throat. Eyes: Negative for blurred vision, pain, discharge and redness. Respiratory: Positive for cough. Negative for hemoptysis, sputum production, shortness of breath, wheezing and stridor. Cardiovascular: Negative for chest pain. Gastrointestinal: Negative for abdominal pain, diarrhea, nausea and vomiting. Musculoskeletal: Negative for myalgias. Skin: Negative for itching and rash. Neurological: Negative for dizziness and headaches. Objective Physical Exam HENT: Head: Normocephalic. Jaw: No trismus, tenderness, swelling or pain on movement. Right Ear: Tympanic membrane, ear canal and external ear normal. Left Ear: Tympanic membrane, ear canal and external ear normal. Nose: Congestion present. Right Sinus: Maxillary sinus tenderness present. Left Sinus: Maxillary sinus tenderness present. Mouth/Throat: Mouth: Mucous membranes are moist. Pharynx: Oropharynx is clear. Uvula midline. No oropharyngeal exudate or posterior oropharyngeal erythema. Eyes: Pupils: Pupils are equal, round, and reactive to light. Cardiovascular: Rate and Rhythm: Normal rate. Pulmonary: Effort: Pulmonary effort is normal. No accessory muscle usage, respiratory distress or retractions. Breath sounds: No stridor. No wheezing, rhonchi or rales. Abdominal: Palpations: Abdomen is soft. Tenderness: There is no abdominal tenderness. There is no guarding or rebound. Musculoskeletal: Cervical back: No erythema or tenderness. No pain with movement. Normal range of motion. Lymphadenopathy: Cervical: No cervical adenopathy. Neurological: General: No focal deficit present. Mental Status: She is alert and oriented to person, place, and time. Mental status is at baseline. ASSESSMENT/PLAN: 1. Bacterial sinusitis - ICD9: 473.9, 041.9, ICD10: J32.9, B96.89 Diagnosed with bacterial sinusitis. Placed on Augmentin. Patient was educated on supportive therapies. Patient will follow up with primary care provider as needed. Patient was instructed to immediately proceed to emergency room for any new, worsening, or symptoms lasting longer than anticipated. The patient's clinical presentation is otherwise unremarkable at this time. Based on exam and clinical finding, the patient is stable for discharge. Plan of care was discussed with patient. Patient verbalizes understanding and agrees to plan of care. This note was generated using eMazeMe software. It may contain errors in wording, punctuation, or spelling. Joseph Alaniz APRN.RUSSELL documented in this encounter [facility] 11-28-2024 Progress note Formatting of t his note might be different from the original. SW- Some RLQ pain. No vb, lof. Still taking meds for N/V. PE: Gen- NAD, well appearing Abd- Soft, NT See flowsheet A/p 16 wk gestation - H/o pre e: Cont baby ASA - Discussed upcoming expectations - RTO anatomy US and OB visit Ten Wise DO [facility] 11-28-2024 Miscellaneous Notes SW- Some RLQ pain. No vb, lof. Still taking meds for N/V. PE: Gen- NAD, well appearing Abd- Soft, NT See flowsheet A/p 16 wk gestation - H/o pre e: Cont baby ASA - Discussed upcoming expectations - RTO anatomy US and OB visit Ten Wise DO documented in this encounter [facility] 11-28-2024 Instructions Sabiha Escamilla MA - 11/28/2024 1:12 PM EDT SEQUENTIAL SCREENINGS The [facility] offers sequential screenings for women who are interested in screenings for chromosomal abnormalities and certain defects during a . The sequential screen combines ultrasound and blood tests to determine the risk of chromosomal abnormalities, including Down's Syndrome (Trisomy 21) and Trisomy 18, as well as open neural tube defects including spina bifida. Ultrasound examination is performed between 11 weeks and 13 weeks gestational age. Blood tests are drawn after the ultrasound and again later in the between 15 and 21 weeks gestational age. Please let your physician know if you are interested in this testing. It will require an appointment with our technicians and trades workers. This is not an ultrasound performed by a physician in our office during a routine visit. SIGNS AND SYMPTOMS OF LABOR 1. Contractions every 10 minutes or more often 2. Clear, pink, or brownish fluid (water) leaking from vagina 3. Feeling that baby is pushing down, pressure 4. Low, dull backache 5. Cramps that feel like a period 6. Cramps with or without diarrhea If you notice any of the above symptoms, contact our office at [phone] and ask to speak with a nurse. After hours, you can call doctors registry at [phone] OR call [facility] at [phone] and ask to have the doctor seasonal package handler paged. If you consider this an emergency, dial 9-1-1 or go to your nearest emergency department. NEED HELP? Are you dealing with a violent or abusive relationship? Are you a victim of rape or sexual assult? Call [facility] ([place]) 24 hour Crisis Hotline: 345.451.2492 or 969-815-2591. MANUAL Your Guide to a Healthy manual is now on-line. Visit [email or web address] to download your free copy documented in this encounter [facility] 11-19-2024 Telephone encounter Note Order was signed and faxed on 11/12/24. Rachael Elena RN [facility] 11-19-2024 Miscellaneous Notes Order was signed and faxed on 11/12/24. Rachael Elena RN Maternity prescription order form received from [employer] for breast pump and supplies and given to KJ for signature. Lida Elaine RN documented in this encounter [facility] 11-12-2024 Telephone encounter Note Maternity prescription order form received from [employer] for breast pump and supplies and given to KJ for signature. Lida Elaine RN [facility] 11-07-2024 Telephone encounter Note Pt viewed results on My chart 11/07 @ 6:51 pm Peggy Hankins LPN [facility] 11-07-2024 Miscellaneous Notes Pt viewed results on My chart 11/07 @ 6:51 pm Peggy Hankins LPN Vaginal swab is positive for yeast. Since she is symptomatic Monistat has been sent to the pharmacy. FYI sent to [facility] since she is 13 weeks . documented in this encounter [facility] 11-07-2024 Telephone encounter Note 13w2d Patient called to report that she went to Urgent Care and was diagnosed with a yeast infection. Monistat cream was prescribed. Patient asking if this is okay to use in . Advised that yes, safe to use in . Sarah Devi RN [facility] 11-07-2024 Miscellaneous Notes 13w2d Patient called to report that she went to Urgent Care and was diagnosed with a yeast infection. Monistat cream was prescribed. Patient asking if this is okay to use in . Advised that yes, safe to use in . Sarah Devi RN documented in this encounter [facility] 11-07-2024 Telephone encounter Note Vaginal swab is positive for yeast. Since she is symptomatic Monistat has been sent to the pharmacy. FYI sent to [facility] since she is 13 weeks . [facility] 11-06-2024 Note HNO ID: [id number] Author: IGNACIA RIBEIRO APRN.[employer] C[employer]TER MACHINE Service: ? Author Type: Nurse Practitioner Type: Progress Notes Filed: 11/06/2024 17:37 Note Text: This note was created using CropUpriter. Subjective Michael Palma is a 24 year old female. 24 year old female with PMH asthma presents for female concern. Acute onset 3 days ago +vaginal discomfort +vaginal discharge +yellow/green +malodorous +vaginal itching +urinary frequency +N/V (mornings which is baseline for patient) Denies vaginal bleeding Denies dysuria Denies urgency , 13 weeks Recently sexually active Endorses history of yeast infections in past, and this feels similar The history is provided by the patient. No language and literature division chair was used. Vaginal Problem This is a new problem. The current episode started in the past 7 days. The problem occurs constantly. The problem has been unchanged. Pertinent negatives include no abdominal pain, anorexia, arthralgias, change in bowel habit, chest pain, chills, congestion, coughing, diaphoresis, fatigue, fever, headaches, joint swelling, myalgias, nausea, neck pain, numbness, rash, sore throat, swollen glands, urinary symptoms, vertigo, visual change, vomiting or weakness. Nothing aggravates the symptoms. She has tried nothing for the symptoms. The treatment provided no relief. PAST MEDICAL HISTORY Diagnosis Date Allergic rhinitis Anemia During first Asthma Concussion 2018 Depression Elevated liver enzymes 09/2019 Due to mono History of depression First History of depression Hx of preeclampsia, prior , currently During first Hx of preeclampsia, prior , currently Mononucleosis 09/2019 Positive JESUS (antinuclear antibody) Postconcussive syndrome PAST SURGICAL HISTORY Procedure Laterality Date NEXPLANON INSERTION 06/14/2022 NEXPLANON REMOVAL 05/06/2024 ALLERGIES Patient has no known allergies. MEDICATIONS ondansetron orally disintegrating (ZOFRAN ODT) 4 mg disintegrating tablet Take 1 tablet by mouth every 8 hours as needed for nausea/vomiting. aspirin, enteric coated (ECOTRIN LOW STRENGTH) 81 mg EC tablet Take 1 tablet by mouth once daily. promethazine (PHENERGAN) 25 mg tablet Take 1 tablet by mouth every 6 hours as needed. famotidine (PEPCID) 20 mg tablet Take 1 tablet by mouth two times a day. 25/iron/folate 6/dha (PRENA1 ORAL) Take 1 tablet by mouth once daily. albuterol HFA (PROAIR HFA) 90 mcg/actuation inhaler Inhale 2 Puffs as instructed every 6 hours as needed. FAMILY HISTORY Problem Relation Age of Onset No Known Problems Mother No Known Problems Father Alzheimer's Disease Maternal Grandmother Heart Maternal Grandfather Heart Paternal Grandfather No Known Problems Half-sister No Known Problems Half-sister No Known Problems Half-brother Social History Tobacco Use Smoking status: Former Current packs/day: 0.00 Types: Cigarettes Quit date: 06/26/2019 Years since quittin.3 Smokeless tobacco: Never Tobacco comments: sometimes smokes . sometimes hits boyfriends vape Vaping Use Vaping status: Former Substances: Nicotine, Flavoring Devices: Disposable Substance Use Topics Alcohol use: Not Currently Alcohol/week: 1.0 standard drink of alcohol Types: 1 Glasses of wine per week Drug use: Not Currently Types: Marijuana Review of Systems Constitutional: Negative for chills, diaphoresis, fatigue and fever. HENT: Negative for congestion and sore throat. Respiratory: Negative for cough. Cardiovascular: Negative for chest pain. Gastrointestinal: Negative for abdominal pain, anorexia, change in bowel habit, nausea and vomiting. Genitourinary: Positive for vaginal discharge. Musculoskeletal: Negative for arthralgias, joint swelling, myalgias and neck pain. Skin: Negative for rash. Neurological: Negative for vertigo, weakness, numbness and headaches. Objective BP 118/78 Pulse 88 Temp 36.9 ?C (98.4 ?F) (Tympanic) Resp 18 Wt 107.5 kg (236 lb 15.9 oz) LMP 07/22/2024 SpO2 96% BMI 36.54 kg/m? Physical Exam Vitals and nursing note reviewed. Constitutional: General: She is not in acute distress. Appearance: Normal appearance. She is normal weight. She is not ill-appearing, toxic-appearing or diaphoretic. HENT: Head: Normocephalic and atraumatic. Right Ear: Ear canal and external ear normal. Left Ear: Ear canal and external ear normal. Nose: Nose normal. No congestion or rhinorrhea. Mouth/Throat: Mouth: Mucous membranes are moist. Pharynx: No oropharyngeal exudate or posterior oropharyngeal erythema. Eyes: General: Right eye: No discharge. Left eye: No discharge. Extraocular Movements: Extraocular movements intact. Conjunctiva/sclera: Conjunctivae normal. Pupils: Pupils are equal, round, and reactive to light. Cardiovascular: Rate and Rhythm: No (more content not included)... [facility] 11-06-2024 History of Present illness Narrative This note was created using CropUpriter. Subjective Michael Palma is a 24 year old female. 24 year old female with PMH asthma presents for female concern. Acute onset 3 days ago +vaginal discomfort +vaginal discharge +yellow/green +malodorous +vaginal itching +urinary frequency +N/V (mornings which is baseline for patient) Denies vaginal bleeding Denies dysuria Denies urgency , 13 weeks Recently sexually active Endorses history of yeast infections in past, and this feels similar The history is provided by the patient. No language and literature division chair was used. Vaginal Problem This is a new problem. The current episode started in the past 7 days. The problem occurs constantly. The problem has been unchanged. Pertinent negatives include no abdominal pain, anorexia, arthralgias, change in bowel habit, chest pain, chills, congestion, coughing, diaphoresis, fatigue, fever, headaches, joint swelling, myalgias, nausea, neck pain, numbness, rash, sore throat, swollen glands, urinary symptoms, vertigo, visual change, vomiting or weakness. Nothing aggravates the symptoms. She has tried nothing for the symptoms. The treatment provided no relief. PAST MEDICAL HISTORY Diagnosis Date Allergic rhinitis Anemia During first Asthma Concussion 2018 Depression Elevated liver enzymes 09/2019 Due to mono History of depression First History of depression Hx of preeclampsia, prior , currently During first Hx of preeclampsia, prior , currently Mononucleosis 09/2019 Positive JESUS (antinuclear antibody) Postconcussive syndrome PAST SURGICAL HISTORY Procedure Laterality Date NEXPLANON INSERTION 06/14/2022 NEXPLANON REMOVAL 05/06/2024 ALLERGIES Patient has no known allergies. MEDICATIONS ondansetron orally disintegrating (ZOFRAN ODT) 4 mg disintegrating tablet Take 1 tablet by mouth every 8 hours as needed for nausea/vomiting. aspirin, enteric coated (ECOTRIN LOW STRENGTH) 81 mg EC tablet Take 1 tablet by mouth once daily. promethazine (PHENERGAN) 25 mg tablet Take 1 tablet by mouth every 6 hours as needed. famotidine (PEPCID) 20 mg tablet Take 1 tablet by mouth two times a day. 25/iron/folate 6/dha (PRENA1 ORAL) Take 1 tablet by mouth once daily. albuterol HFA (PROAIR HFA) 90 mcg/actuation inhaler Inhale 2 Puffs as instructed every 6 hours as needed. FAMILY HISTORY Problem Relation Age of Onset No Known Problems Mother No Known Problems Father Alzheimer's Disease Maternal Grandmother Heart Maternal Grandfather Heart Paternal Grandfather No Known Problems Half-sister No Known Problems Half-sister No Known Problems Half-brother Social History Tobacco Use Smoking status: Former Current packs/day: 0.00 Types: Cigarettes Quit date: 06/26/2019 Years since quittin.3 Smokeless tobacco: Never Tobacco comments: sometimes smokes . sometimes hits boyfriends vape Vaping Use Vaping status: Former Substances: Nicotine, Flavoring Devices: Disposable Substance Use Topics Alcohol use: Not Currently Alcohol/week: 1.0 standard drink of alcohol Types: 1 Glasses of wine per week Drug use: Not Currently Types: Marijuana Review of Systems Constitutional: Negative for chills, diaphoresis, fatigue and fever. HENT: Negative for congestion and sore throat. Respiratory: Negative for cough. Cardiovascular: Negative for chest pain. Gastrointestinal: Negative for abdominal pain, anorexia, change in bowel habit, nausea and vomiting. Genitourinary: Positive for vaginal discharge. Musculoskeletal: Negative for arthralgias, joint swelling, myalgias and neck pain. Skin: Negative for rash. Neurological: Negative for vertigo, weakness, numbness and headaches. Objective BP 118/78 Pulse 88 Temp 36.9 C (98.4 F) (Tympanic) Resp 18 Wt 107.5 kg (236 lb 15.9 oz) LMP 07/22/2024 SpO2 96% BMI 36.54 kg/m Physical Exam Vitals and nursing note reviewed. Constitutional: General: She is not in acute distress. Appearance: Normal appearance. She is normal weight. She is not ill-appearing, toxic-appearing or diaphoretic. HENT: Head: Normocephalic and atraumatic. Right Ear: Ear canal and external ear normal. Left Ear: Ear canal and external ear normal. Nose: Nose normal. No congestion or rhinorrhea. Mouth/Throat: Mouth: Mucous membranes are moist. Pharynx: No oropharyngeal exudate or posterior oropharyngeal erythema. Eyes: General: Right eye: No discharge. Left eye: No discharge. Extraocular Movements: Extraocular movements intact. Conjunctiva/sclera: Conjunctivae normal. Pupils: Pupils are equal, round, and reactive to light. Cardiovascular: Rate and Rhythm: Normal rate and regular rhythm. Pulses: Normal pulses. Heart sounds: Normal heart sounds. No murmur heard. No friction rub. Pulmonary: Effort: Pulmonary effort is normal. No respiratory distress. Breath sounds: Normal breath sounds. No stridor. No wheezing, rhonchi or rales. Chest: Chest wall: No tenderness. Abdominal: General: Abdomen is flat. There is no distension. Palpations: Abdomen is soft. There is no mass. Tenderness: There is no abdominal tenderness. There is no right CVA tenderness, left CVA tenderness, guarding or rebound. Hernia: No hernia is present. Genitourinary: Comments: Self swabs obtained Musculoskeletal: General: No swelling, tenderness, deformity or signs of injury. Normal range of motion. Cervical back: Normal range of motion and neck supple. No rigidity. Right lower leg: No edema. Left lower leg: No edema. Lymphadenopathy: Cervical: No cervical adenopathy. Skin: General: Skin is warm and dry. Coloration: Skin is not jaundiced or pale. Findings: No bruising, erythema, lesion or rash. Neurological: General: No focal deficit present. Mental Status: She is alert and oriented to person, place, and time. Cranial Nerves: No cranial nerve deficit. Sensory: No sensory deficit. Motor: No weakness. Coordination: Coordination normal. Gait: Gait normal. Psychiatric: Mood and Affect: Mood normal. Behavior: Behavior normal. Thought Content: Thought content normal. Judgment: Judgment normal. Assessment and Plan ASSESSMENT/PLAN: 1. Urinary frequency - ICD9: 788.41, ICD10: R35.0 (primary diagnosis) Acute Denies dysuria - UA positive for messi esterase, proteinuria, and ketones and bili - Send urine for culture - Patient education for prevention given - UA DIP, URINE (POC) - BACTERIAL CULTURE, URINE 2. Vaginal discharge - ICD9: 623.5, ICD10: N89.8 X 3 days +vaginal discomfort +yellow/green +malodorous Self swabs obtained, given history of will await results to guide treatment Patient in agreeable - ALIREZA/TRICHOMONAS NAAT - BACTERIAL VAGINOSIS NAAT - GONORRHEA/CHLAMYDIA NAAT 3. 19 weeks gestation of - ICD9: V22.2, ICD10: Z3A.19 Under care Ignacia Ribeiro APRN.CANDY CUTTER MACHINE documented in this encounter [facility] 11-01-2024 Progress note Formatting of t his note might be different from the original. KJ - VB No. LOF No. CTXS No. Movement: absent. Other c/o: Nausea is improving. Medication list reviewed. Physical Exam See Flow Sheet Gen: no accute distress, well appearing A/P 12w3d Estimated Date of Delivery: 05/13/25 NT today PNB & NIPT H/o preE - start aspirin QHS Nausea - continue meds Ny Ulloa MD [facility] 11-01-2024 Miscellaneous Notes KJ - VB No. LOF No. CTXS No. Movement: absent. Other c/o: Nausea is improving. Medication list reviewed. Physical Exam See Flow Sheet Gen: no accute distress, well appearing A/P 12w3d Estimated Date of Delivery: 05/13/25 NT today PNB & NIPT H/o preE - start aspirin QHS Nausea - continue meds Ny Ulloa MD documented in this encounter [facility] 11-01-2024 Instructions Magi Landon MA - 11/01/2024 9:59 AM EST SEQUENTIAL SCREENINGS [facility] offers sequential screenings for women who are interested in screenings for chromosomal abnormalities and certain defects during a . The sequential screen combines ultrasound and blood tests to determine the risk of chromosomal abnormalities, including Down's Syndrome (Trisomy 21) and Trisomy 18, as well as open neural tube defects including spina bifida. Ultrasound examination is performed between 11 weeks and 13 weeks gestational age. Blood tests are drawn after the ultrasound and again later in the between 15 and 21 weeks gestational age. Please let your physician know if you are interested in this testing. It will require an appointment with our technicians and trades workers. This is not an ultrasound performed by a physician in our office during a routine visit. SIGNS AND SYMPTOMS OF LABOR 1. Contractions every 10 minutes or more often 2. Clear, pink, or brownish fluid (water) leaking from vagina 3. Feeling that baby is pushing down, pressure 4. Low, dull backache 5. Cramps that feel like a period 6. Cramps with or without diarrhea If you notice any of the above symptoms, contact our office at [phone] and ask to speak with a nurse. After hours, you can call doctors registry at [phone] OR call [facility] at [phone] and ask to have the doctor seasonal package handler paged. If you consider this an emergency, dial [phone] or go to your nearest emergency department. NEED HELP? Are you dealing with a violent or abusive relationship? Are you a victim of rape or sexual assult? Call [facility] ([place]) 24 hour Crisis Hotline: 781.217.2963 or 719-384-9388. MANUAL Your Guide to a Healthy manual is now on-line. Visit [email or web address] to download your free copy documented in this encounter [facility] 09-30-2024 Telephone encounter Note Patient states she is drastically better, but there are still days that she is sick and today is one of those days. RAUDELI. Laura Santacruz RN [facility] 09-30-2024 Miscellaneous Notes Patient states she is drastically better, but there are still days that she is sick and today is one of those days. RAUDELI. Laura Santacruz RN 7w6d Next OB visit 11/01/23. Got original rx from [facility] ER on 09/14/24. Requested Prescriptions Pending Prescriptions Disp Refills ondansetron orally disintegrating (ZOFRAN ODT) 4 mg disintegrating tablet 60 tablet 2 Sig: Take 1 tablet by mouth every 8 hours as needed for nausea/vomiting. Rachael Elena RN documented in this encounter [facility] 09-30-2024 Telephone encounter Note 7w6d Next OB visit 11/01/23. Got original rx from [facility] ER on 09/14/24. Requested Prescriptions Pending Prescriptions Disp Refills ondansetron orally disintegrating (ZOFRAN ODT) 4 mg disintegrating tablet 60 tablet 2 Sig: Take 1 tablet by mouth every 8 hours as needed for nausea/vomiting. Rachael Elena RN [facility] 09-26-2024 Telephone encounter Note 1st risk assessment form submitted 09/26/24. Gopi Goddard RN [facility] 09-26-2024 Miscellaneous Notes 1st risk assessment form submitted 09/26/24. Gopi Goddard RN documented in this encounter [facility] 09-24-2024 Telephone encounter Note Patient called back tearful. Stated that she has been taking Vitamin B6 with no relief. Cannot keep any fluids/food down. Feels dizzy. Reports that she had to take Zofran previous and is now out of the zofran she received during previous emergency room visit. Patient told nurse that she would have her take her to the emergency room. [facility] 09-24-2024 Miscellaneous Notes Patient called back tearful. Stated that she has been taking Vitamin B6 with no relief. Cannot keep any fluids/food down. Feels dizzy. Reports that she had to take Zofran previous and is now out of the zofran she received during previous emergency room visit. Patient told nurse that she would have her take her to the emergency room. Left message for patient to call office. Sarah Highman, RN I would recommend vitamin B6 and 1/2 tab of unisom OTC. I know we are seeing her tomorrow but I am not going to write for a medication until she is established for with us. Small frequent sips of fluids - len kristopher. 9w1d Patient is calling c/o n/v again. She last went to ER on 09/14/24 for this and was given rx for Zofran, which did help her. She has now ran out of Zofran though. She was taking vitamin B6 and ran out of that too. She plans to get more OTC soon. Her NOB is scheduled for tomorrow. Asking if she can get refill for Zofran today. She has been unable to keep anything down since around 2 am and has vomited multiple times since. Aware to return to ER if continues for 24 hours. documented in this encounter [facility] 09-24-2024 Telephone encounter Note Left message for patient to call office. Sarah Devi RN [facility] 09-24-2024 Telephone encounter Note I would recommend vitamin B6 and 1/2 tab of unisom OTC. I know we are seeing her tomorrow but I am not going to write for a medication until she is established for with us. Small frequent sips of fluids - len kristopher. [facility] Work Phone: 09-24-2024 Telephone encounter Note 9w1d Patient is calling c/o n/v again. She last went to ER on 09/14/24 for this and was given rx for Zofran, which did help her. She has now ran out of Zofran though. She was taking vitamin B6 and ran out of that too. She plans to get more OTC soon. Her NOB is scheduled for tomorrow. Asking if she can get refill for Zofran today. She has been unable to keep anything down since around 2 am and has vomited multiple times since. Aware to return to ER if continues for 24 hours. [facility] 09-24-2024 Note HNO ID: [id number] Author: MADI MOSS APRN.CANDY CUTTER MACHINE Service: ? Author Type: Nurse Practitioner Type: Progress Notes Filed: 09/25/2024 10:16 Note Text: Data Control Clerk offered: Patient declines. INITIAL OB ASSESSMENT HPI: Michael is a 24 year old White Female here to establish Obstetrical Care. Patient's last menstrual period was 07/22/2024. from OB Dating Form. was planned Complaints: (!) Severe nausea/vomiting OB History T1 L1 SAB0 IAB0 Ectopic0 Multiple0 Live Births1 Previous history: Prior : No History of 4th degree laceration: no History of shoulder dystocia: no History of Hypertensive disorders including pre-eclampsia or gestational hypertension: yes History of gestational diabetes: no Patient's Risk Screening for delivery: Have you had a prior block between 20w and 36w6d? No How many pregnancies have you had before? 1 Did you have a previous baby with a GBS Infection? No Please select all that apply for any prior : N/A MEDICAL/PSYCHOSOCIAL HISTORY: Severe Bleeding with Delivery: no Thyroid Disease: no Gestational Hypertension: yes Preeclampsia: yes Diabetes in : no No results found for: ABORHD BMI 37.62 kg/(m2) Last Pap: 05/03/2024 normal History of abnormal pap: normal Prior treatment for cervical dysplasia: none. Last HPV: History of STDs: Gonorrhea Partner History of STDs: None Did you have a partner with Herpes? No Tobacco use: No E-Cigarette/Vaping Use: No Caffeine use: No Drug use: No Alcohol use: No Multivitamin with Folic acid: Yes Would refuse blood transfusion if medically necessary: No Social Needs: How often does this describe you? I don't have enough money to pay my bills: Never Within the past 12 months, have you worried that your food would run out before you had money to buy more? Never In the past 12 months, has lack of reliable transportation kept you from going to medical appointments or work, or from getting things needed for daily living? Never In the past 12 months, have you had any concerns about having a place to live, or about the condition or quality of your housing? Never Would you like more information on any of the following (please check all that apply)? Not interested Social History: Do you have any history of depression, anxiety, PTSD, or other mood problems? Yes Do you have a history of abuse or trauma that may impact your experience? No Are you currently employed? No Depression/Anxiety Screening: denies, admits to symptoms of depression. OB Depression and Anxiety Screening- This Encounter (since 09/24/2024) Over the past 2 weeks have you felt down, depressed, or hopeless? Positive - Further Testing Indicated Over the past two weeks, have you felt little interest or pleasure in doing things?? Positive - Further Testing Indicated I have been able to laugh and see the funny side of things. As much as I always could I have looked forward with enjoyment to things. As much as I ever did I have blamed myself unnecessarily when things went wrong. No, never I have been anxious or worried for no good reason. No, not at all I have felt scared or panicky for no good reason. No, not much Things have been getting on top of me. No, most of the time I have coped quite well I have been so unhappy that I have had difficulty sleeping. Not at all I have felt sad or miserable. Not very often I have been so unhappy that I have been crying. Only occasionally The thought of harming myself has occurred to me. Never [place] Depression Scale Total 4 Feeling nervous, anxious or on edge 1-Several days Not being able to stop or control worrying 1-Several days Anxiety Pre-Screening Total (If >/= 3 additional questions will be reviewed) 2 Genetic Screening: Partner present: No Patient verbalized knowledge of partner family health history: Yes Do you or your partner have any personal or family history of defects not previously discussed: No Do you have history of a complicated by anomaly, genetic condition, or demise: No Preeclampsia Risk Screening: Screening for prevention of preeclampsia: High risk factors: Autoimmune disease (e.g. systemic lupus erythematosus, anti-phospholipid antibody syndrome) Moderate risk ractors: Obesity (body mass index greater than 30) OB Risk Screening: Completed, no positive findings documented. 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 [facility] 09-24-2024 History of Present illness Narrative Data Control Clerk offered: Patient declines. INITIAL OB ASSESSMENT HPI: Michael is a 24 year old White Female here to establish Obstetrical Care. Patient's last menstrual period was 07/22/2024. from OB Dating Form. was planned Complaints: (!) Severe nausea/vomiting OB History T1 L1 SAB0 IAB0 Ectopic0 Multiple0 Live Births1 Previous history: Prior : No History of 4th degree laceration: no History of shoulder dystocia: no History of Hypertensive disorders including pre-eclampsia or gestational hypertension: yes History of gestational diabetes: no Patient's Risk Screening for delivery: Have you had a prior block between 20w and 36w6d? No How many pregnancies have you had before? 1 Did you have a previous baby with a GBS Infection? No Please select all that apply for any prior : N/A MEDICAL/PSYCHOSOCIAL HISTORY: Severe Bleeding with Delivery: no Thyroid Disease: no Gestational Hypertension: yes Preeclampsia: yes Diabetes in : no No results found for: ABORHD BMI 37.62 kg/(m^2) Last Pap: 05/03/2024 normal History of abnormal pap: normal Prior treatment for cervical dysplasia: none. Last HPV: History of STDs: Gonorrhea Partner History of STDs: None Did you have a partner with Herpes? No Tobacco use: No E-Cigarette/Vaping Use: No Caffeine use: No Drug use: No Alcohol use: No Multivitamin with Folic acid: Yes Would refuse blood transfusion if medically necessary: No Social Needs: How often does this describe you? I don't have enough money to pay my bills: Never Within the past 12 months, have you worried that your food would run out before you had money to buy more? Never In the past 12 months, has lack of reliable transportation kept you from going to medical appointments or work, or from getting things needed for daily living? Never In the past 12 months, have you had any concerns about having a place to live, or about the condition or quality of your housing? Never Would you like more information on any of the following (please check all that apply)? Not interested Social History: Do you have any history of depression, anxiety, PTSD, or other mood problems? Yes Do you have a history of abuse or trauma that may impact your experience? No Are you currently employed? No Depression/Anxiety Screening: denies, admits to symptoms of depression. OB Depression and Anxiety Screening- This Encounter (since 09/24/2024) Over the past 2 weeks have you felt down, depressed, or hopeless? Positive - Further Testing Indicated Over the past two weeks, have you felt little interest or pleasure in doing things? Positive - Further Testing Indicated I have been able to laugh and see the funny side of things. As much as I always could I have looked forward with enjoyment to things. As much as I ever did I have blamed myself unnecessarily when things went wrong. No, never I have been anxious or worried for no good reason. No, not at all I have felt scared or panicky for no good reason. No, not much Things have been getting on top of me. No, most of the time I have coped quite well I have been so unhappy that I have had difficulty sleeping. Not at all I have felt sad or miserable. Not very often I have been so unhappy that I have been crying. Only occasionally The thought of harming myself has occurred to me. Never [place] Depression Scale Total 4 Feeling nervous, anxious or on edge 1-Several days Not being able to stop or control worrying 1-Several days Anxiety Pre-Screening Total (If >/= 3 additional questions will be reviewed) 2 Genetic Screening: Partner present: No Patient verbalized knowledge of partner family health history: Yes Do you or your partner have any personal or family history of defects not previously discussed: No Do you have history of a complicated by anomaly, genetic condition, or demise: No Preeclampsia Risk Screening: Screening for prevention of preeclampsia: High risk factors: Autoimmune disease (e.g. systemic lupus erythematosus, anti-phospholipid antibody syndrome) Moderate risk ractors: Obesity (body mass index greater than 30) OB Risk Screening: Completed, no positive findings documented. 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 albuterol HFA (PROAIR HFA) 90 mcg/actuation inhaler Inhale 2 Puffs as instructed every 6 hours as needed. 1 Each 0 No current facility-administered medications for this visit. Allergies As of Date: 09/25/2024 (No Known Allergies) Fully Assessed 09/25/2024 Does patient have penicillin allergy: No REVIEW OF SYSTEMS: GENERAL: Negative for: Fever or Chills HEENT: Negative for: Impaired Vision, Ringing in Ears, Nosebleeds + headache NECK: Negative for: Swelling, Pain, Stiffness RESPIRATORY: Negative for: Cough, Shortness of breath, Wheezing GASTROINTESTINAL: Negative for: Constipation, Diarrhea, Blood in stool, + heartburn and nausea MUSCULOSKELETAL: + left shoulder pain (chronic) NEUROLOGIC/PSYCHIATRIC: Negative for: Weakness, Paralysis, Numbness, Tingling, Tremor, Memory loss + anxiety/depression SKIN: Negative for: Rash, Itching GENITOURINARY: Negative for: vaginal itching, vaginal discharge, hematuria or dysuria SENSITIVE EXAM: The sensitive examination was discussed with the Patient or Patient's Authorized Forestry Workers. As applicable, any other physician, advance practice provider, medical student, or other health professional student that will be observing or involved in the sensitive examination for educational or training purposes was discussed with the Patient or Authorized Forestry Workers. The Patient or Authorized Forestry Workers has agreed to proceed with the sensitive examination. (Sensitive examination includes inspection and/or palpation of the breasts, pelvis, prostate and anorectal regions). PHYSICAL EXAM: BP 120/76 Ht 5' 7.531 (1.72m) Wt 244 lb (110.7kg) LMP 07/22/2024 BMI 37.63 kg/(m^2). GENERAL: pleasant in no apparent distress DERMATOLOGY: Normal, without lesions, non-icteric, and non-hirsute NECK: Supple, full range of motion, no adenopathy, and thyroid normal CHEST: Normal inspiratory effort BREAST: soft, non-tender, symmetric, no dominant mass, normal nipple-areolar complex, no lymphadenopathy, and no nipple discharge ABDOMEN: soft, non-tender, and no masses NEURO: alert and oriented x3,exam grossly non-focal PELVIS: External genitalia normal without lesions. Perineal body intact. No vaginal or cervical lesions. Cervix closed. Uterus <8 week size. No adnexal masses or tenderness. Clinical Pelvimetry: Pelvimetry clinically assessed as adequate Limited OB ultrasound exam: single intrauterine and positive cardiac activity ASSESSMENT: 24 year old at 9w2d wks gestational age PLAN: 1) Patient oriented to practice. Patient given new OB orientation folder. Discussed nutrition, folic acid supplementation, dietary guidelines, exercise, smoking, alcohol, caffeine, and drug use. Discussed gestational weight gain guidelines. Discussed routine OB labs including STD/HIV. Discussed how to access Your guide to a health and the Client Support Analyst. Discussed hemoglobin electrophoresis. Patient: Accepts Reviewed midwifery and food and beverage outlets manager services that are available. 2) Screening: Hemoglobin A1C: ordered Baby Aspirin: The patient has been counseled about the potential benefits of low dose aspirin in and our recommendation that this be offered to all patients, regardless of whether they meet the high risk criteria specified above. She Accepts Aneuploidy Screening: Discussed aneuploidy screening, nuchal translucency/first trimester early anatomy ultrasound and NIPT. The risks/benefits and limitations of NIPT/aneuploidy screening were reviewed including the potential for false negative and false positive results. The availability of genetic counseling was reviewed. Information on aneuploidy screening was provided. The patient chooses to proceed with First trimester early anatomy ultrasound (12-13w6d) Myriad Carrier Screening: Discussed myriad carrier screening. We discussed the availability of professional-society guided carrier screening and reviewed the conditions screened and limitations of screening. The availability of genetic counseling was reviewed. Information on carrier screening was provided. The patient is considering 3) Patient offered option of Virtual Visits. Patient prefers in person visits. ACTIVE PROBLEM LIST Encounter for Supervision of High Risk in First Trimester, Antepartum - 09/25/2024 Comment: Care Checklist Vaccines: [] Flu vaccine [] declined [] RSV vaccine 32 0/7 - 36 6/ (May - Oct) [] declined [] COVID vaccine [] declined [] TDaP 27-36 [] declined First trimester: [x] Dating US [] 1st tri labs [x] Pap smear [] Carrier screening - considering [] declined [] NIPT screening - considering [] declined [x] First trimester anatomy scan [] declined [x] universal ASA ordered (start 12w-16w) [] declined [] M Power Consult [] not indicated [] declined Second trimester: [] Anatomy scan [] Mode of Delivery - [] Feeding - [] Pump ordered [] Diabetes screen [] CBC, RPR [] Behavioral Health Screening Third trimester (28-30 weeks): [] Consent [] Contraception [] Coin Purse Framer [] TeamBirth handout Third trimester (36-40 weeks): [] GBS [] Presentation - [] Scheduled [] yes - Hibiclens, pre-op instructions, CBC, T&S ordered [] no [] H&P [] Preferences worksh With Uncertain Dates in First Trimester - 09/25/2024 Comment: September 25, 2024 POCUS not consistent with LMP. Confirm AMADOR with NT Madi Moss APRN.CANDY CUTTER MACHINE Nausea and Vomiting During - 09/25/2024 Comment: September 25, 2024 Has gone to ER twice. CMP from 09/24 reviewed. Not able to keep food down. Taking Zofran and B6. Rx for Phenergan and Pepcid sent. If not improved within 1-2 days, plan for home Zofran pump. Madi Moss APRN.RUSSELL Heartburn During in First Trimester - 09/25/2024 Comment: September 25, 2024 Rx for Pepcid sent. Madi Moss APRN.CNP Anxiety and Depression - 11/10/2020 Comment: September 25, 2024 EDPS 4. Denies thoughts of self harm. Mood affected by severe nausea and vomiting. Has seen counselor in the past. Mental health resources provided. To update throughout . Madi Moss APRN.CNP Family History of Down Syndrome - 09/25/2024 Comment: Half sister's child Family History of Autism - 09/25/2024 Comment: Half sister's child Hx of Preeclampsia, Prior , Currently Comment: September 25, 2024 Baseline labs ordered. Madi Moss APRN.CNP History of Depression Comment: First Obesity Complicating , First Trimester - 04/05/2021 Comment: -Pre BMI 37 - Plan for 32 week growth q 4 weeks. - Weekly NSTs at 36 weeks. Madi Moss APRN.CNP Asthma Affecting in First Trimester Comment: September 25, 2024 No Hemabate with delivery. Has inhaler. Madi Moss APRN.CNP Jesus Positive Headache, Unspecified Headache Type - 06/28/2018 Comment: September 25, 2024 Likely due to dehydration from nausea and vomiting. Encouraged small frequent meals and increase water intake - small frequent sips. Madi Moss APRN.CNP Follow up in 4 weeks or sooner prn. Plan for NT scan between 12w0d and 13w6d gestation. Plan for 1 week follow up for nausea. Madi Moss APRN.CNP documented in this encounter [facility] 09-24-2024 Instructions Madi Moss APRN.CNP - 09/24/2024 8:14 AM EST Images from the original note were not included. Please select the following link to access the [facility] Your Guide to a Healthy . [email or web address] Please select the following link to access the [facility] Your Guide to a Healthy . [email or web address] Psychotherapy Services at [facility] Call [place] Access Line at [phone] to schedule Individual psychotherapy In-person or virtual Wait time for first evaluation may be 12 or more weeks. Wait list spots may be available. Due to the high volume of patients this option is recommended if you are looking for short term acute symptom coping strategies. 6-804-6-BPXS8PSWV - [place] Maternal Mental Health Hotline If you are in suicidal crisis, please call or text 4-802-566-TALK ( ) or visit the National Suicide Prevention Lifeline website. mchb.tsaile health centera.gov If you are in crisis, call 911 or go to your nearest Emergency Department Here are some links for wonderful Providers here in the community and surrounding areas. Do not hesitate to contact their offices, many are offering virtual visits during this time. Psychotherapy Services outside of [facility] Support International Online Provider Directory https://Kunshan RiboQuark Pharmaceutical Technology.Fetch Plus, Inc Pte. Ltd./ - can assist in finding providers in your area that might be more extensive then the list below. [facility] - [place], [place] [address] [place] [address] [facility] [address] [place] [address] [facility] [address] [place] [address] [facility] [address] [place] [address] Conner Rosenberg MD [address] [place] [address] [facility] [address] [facility], [address] [place] [address] [facility] [address] [place] [address] [facility] Counseling Services [place] / [place] [phone]/ [phone] Dulce Forbes [address] [facility] [phone] Aves of Counseling and Mediation [place] / [place] [phone] Behavioral health services of [facility] [address] [place] [address]/ [place] [phone] Emily Marshall, ALESSIO, CLC Bu and Beyond Family Therapy Workshops, telehealth and at home visits. [phone] Humanistic counseling center 20 locations [place], [place], [place], [place], [place], [place], [place], [place], [place], [place], [place], [place], [place], [place], [facility], [place], [place] ,[facility], [place], [place],[facility], [place], [place], [facility] hts, [place], [place] www.Spot Mobile International [phone] Psychotherapy resources outside of [facility] are listed below [facility] AirSig Technology Psychotherapy Web: https://www.Flimper/ Support International Online Provider Directory https://Sprout Route/ [facility] https://TopChalks/ Work in Field for Behavioral Health and Wellness Web: https://PrismaStar/ Dine in Effective Living Web: https://Rare Pink/ LifeStance Web: https://Treasury Intelligence Solutions.Fetch Plus, Inc Pte. Ltd./location/[facility]/[place]/ [facility] Web: https://www.[facility].org / [facility] Web: https://KAICORE.Swoon Editions/ Recovery Resources Mental health and substance abuse help Web: https://www.InEdges.Swoon Editions & RESOURCES Support International Direct peer support and connection to professional resources Non-Emergency Helpline Phone: / Text: [phone] Web: https://www..net/ Online Provider Directory: https://Sprout Route/ Online Support Meetings: https://www..net/get-hel p/kup-kufsfb-ikrqcgp-meetings/ JUDE Baby and Station Engineer Services Web: https://wwwApparent/ MotherToBaby Expert information on medication use during and Text: [phone] Web: https://mothertobaby.org/ NATIONAL REGISTRY FOR PSYCHIATRIC MEDICATIONS Currently studying the safety of antidepressants, ADHD medications and atypical antipsychotics taken during TO PARTICIPATE CALL TOLL-FREE: Web: https://womenental[facility].org/res earch/pregnancyregistry/ Support Groups: [facility]- Follow on facebook Baby Bistro support group led by [facility] department Resilient Mamas - Support Group Resilmer[facility] health willard hospitalmamas.org The POEM support group [phone] Www.poemonline.org Follow on facebook - ADAN beard Online support meetings PSI https://www..net/get-hel p/yft-qjhdvt-fwcpvze-meetings/ [facility] mommy and me virtual support group 11:30-1pm Support for mothers and new babies and toddlers [place] childbirth education: Childbirth @[facility].org or call [phone] CRISIS: CRISIS HOTLINE [phone], 911 or go to the nearest . [facility] [phone] / [facility] [phone] https://www.[facility].org Crisis text line text the word HOME to 054171 Roberto Lopez Counseling [address] [facility] [address] [facility] [address] www.Swiftpage Galina Cunningham clinical counseling [address] [address] www.Gigle NetworksriIDX Corp.Fetch Plus, Inc Pte. Ltd. [phone] [facility] psychotherapy Lizbeth Otoole MEDICAL VIDEOGRAPHER AUTO HAULER-S [address] [facility] www.Trist [phone]/ [place] [phone] They all offer virtual. All work with trauma Support groups Online support meetings PSI https://www..net/get-hel p/ran-qskfvz-khuxhol-meetings/ Here are the support groups they offer: Support of parents of 1 to 4 years old children POEM ( Outreach and Encouragement for Moms) offers free support for mothers experiencing depression, anxiety, and other mood and anxiety disorders. Masks are recommended but not required. No pre-registration required. Babies in arms welcome. meetings now take place on the and Monday of each month Location: Kwesi Salazar [facility] [address] [place] [address] Room 122 (library room) 7-8:00 p.m. When you enter the [facility] parking lot off of [place] [address] the entrance door closest to our meeting room is on the front of the building toward the right. For those who are more comfortable with a virtual platform, Futubank offers online support group options several days of the week. To register for an online group or to find out more about PO, website at: https://Lizhiaohio.org/get-help/[facility] m[facility] hospitaluim-wzvjye-xbbrht/poem-services/ offer a confidential helpline: private Facebook group is called ADAN Raymundo Beard Here are the groups they offer: Traumatic childbirth resources: Http://pattch.org/ https://www.SkyRiver Technology SolutionsradhaEvent Innovation/ Name Location (s) Phone # (s) Services Website [facility] Psychotherapy [address] [place], [place] - [phone]; [address] [phone] In-Person GROUPS INDIVIDUAL THERAPY MATERNAL-INFANT MENTAL HEALTH MEDICATION MANAGEMENT PLAY AND ART THERAPY TELETHERAPY https://www.Flimper/se rvices/ Lian[place] of [place] RAYMUNDO? [address] [place], [place] [address] ? [address], [address] [place], [place] [address] ? [place] [address] [place] [phone]? Grief Support Groups Individual Grief Counseling [facility] https://raymundo.[facility] e.org/grief-services [facility] [address] [place], [place] [address]; ; Email: mary@[email or web address] Developers and Infrastructure Limited Women's Mental Health; Couples Counseling; Trauma (EMDR); Stress Management; Mood and Anxiety Related Disorders- and much more https://www.Hazel Mail/ LifeStance Numerous as they have contract providers: access website to find specific providers near you Counseling including CBT and EMDR as well as many more modalities; Medication Management; Telehealth and In-Person https://Exit41/ Work in Field for Behavioral Health and Wellness [address] [place], [place] [address]; [phone] Personal, Family and Group Therapy; Psychological Testing and Diagnosis; Medication Management; Life and Career Coaching; Psychoanalysis; Literacy Testing; Yoga and Meditation https://PrismaStar/ Alacritech [facility] [address] [facility] [address], [place] [address] [address] ; [address] [facility], [address] [place] [address]; Office # for both sites: Individual and Couples Counseling https://www.Mengero.Fetch Plus, Inc Pte. Ltd./p aymentinsurance.html OCD & Anxiety [facility] [address] [facility], [address], [place] [address]; Specialize in Cognitive-Behavioral Therapy (CBT) for the treatment of anxiety disorders across the lifespan. TELEHEALTH ONLY. https://ocdandanxietycentReDigi/faqs Formerly [facility] [address] [facility] [place], [address] [place] [address] [facility] [place], [address] [place] [address] [place] [address] [place] [address] [place], [address], [id number] [place] [address] [place] [address]. [place], [address] [place] [address] [place], [place], [id number] Transportation Services To minimize patient barriers, [facility] provides transportation services to patients who qualify. If you are unable to get to your appointment at any of our facilities, please let us know. Need help now? Stop by one of our walk-in clinics to establish behavioral health care. Counseling Indvidual, Group, Couples and Family Counseling and EMDR. Medication Management Case Management benefits applications housing assistance Substance abuse treatment Medication assisted treatment https://www.[facility].org /mental-health/ [facility] OFFICE AT [facility] [address] [place] [address] [facility]ICE [address] [place] [address] [facility] OFFICE [address] [place], [place] [id number] [facility] OFFICE (at [facility]) [address] [place] [address] [facility] SYRINGE EXCHANGE PROGRAM & HIV SCREENING [address] [place] [address] [facility]AN [facility] EXCHANGE PROGRAM [address] [place] [address] Behavioral Health Urgent Care: [facility] Counseling Indvidual and Group Medication Management Case Management benefits applications housing assistance Substance abuse treatment Medication assisted treatment Employment Services/ Job Training https://theTheracos.org/ Recovery Resources [address] [place], [place] [address]: P: [phone] [address] [facility], [address], [place] [address] P: [phone] Our services include: Addiction Mental Health Treatment Assessment Psychiatry Medical Care Employment Housing Drug and Alcohol Prevention HIV/AIDS Prevention https://www.recres.org/ [facility] [place] [address] [place] [address] [place] [address] [place], [place] [address] [place] [address] [place] [address] [place] [address] [facility] [address] [place] [address] [place] [address] [place] [address] TMS Therapy/ Counseling Psychocological Testing for ADHD Medication Management In-Person/ Telemedicine https://www.Pasteuria Bioscience.com/gabriele nts-depression Memory & Psychological services [address], [place] [address] Neuropsychological Testing For ADHD https://www.memoryandpsych.com/ [facility] Office [address] [place] [address] [phone] Providing obqs-ts-npoy and telehealth services. Adult Case Management Community Education and Prevention Employment Outpatient Treatment - Counseling & Psychotherapy Psychiatric Services http://www.ccc.org/ [facility] [place] [address] [place] [address] [facility]) [address] [place] [address] Virtual Appointments! Now offering safe and convenient virtual client appointments to anyone in [place]! Individual Therapy Couples/Relationship Therapy Trauma/EMDR Therapy Art Therapy Play Therapy Community Service Officer Coordinator Support: Parenting Skills, Parent Child Interaction Therapy, Parent Interaction Therapy Meditation Dietitian/1St Pressman On Web Press Services Group Therapy Yoga https://www.ebbandflowcounseling.c casper/ Laisha Mckinney [phone] Private Practice: Telehealth Only Specializes in EMDR for Trauma None Ondansetron (Zofran ) April 18, 2020 This sheet talks about exposure to ondansetron in a and while . This information should not take the place of medical care and advice from your healthcare provider. What is ondansetron? Ondansetron is a medication used to treat nausea and vomiting that may be caused by surgery, chemotherapy, or radiation therapy. Ondansetron has also been prescribed during to help with symptoms of nausea and vomiting in (NVP). NVP is also referred to as morning sickness . Ondansetron is taken by mouth, infused into a vein (by IV) or given by injection into a muscle (IM). Ondansetron is sold under the brand name Zofran . What can I do to help control my nausea and vomiting? MotherOpeepl has a helpful fact sheet on nausea in with recommendations. You can review it here: https://mothertobaby.org/fact-shee ts/ikuxqh-saycrjrg-fxburlmnh-nvp/p df/. Also, eating small meals often, drinking plenty of clear fluids, and avoiding triggers (such as odors, heat, and spicy or high fat foods) can help. Talk to your healthcare provider about which NVP treatments are right for you. I take ondansetron. Can it make it harder for me to become ? There are no studies that have looked to see if ondansetron could make it harder for a person to get . Studies in animals did not find that ondansetron would affect the ability to get . Does taking ondansetron increase the chance for miscarriage? Miscarriage can occur in any . One study did not find that miscarriage happened more often for those who reported that they used ondansetron in the first trimester of . Does taking ondansetron increase the chance of defects? Every starts out with a 3-5% chance of having a defect. This is called the background risk. Most studies have found no increased chance for defects among thousands of people who used ondansetron in the first trimester of . A few studies reported a very small (less than 1%) increase in the chance for a cleft palate (an opening in the roof of the mouth that may be repaired with surgery) or a heart defect. Because of other factors that could affect the pregnancies exposed to ondansetron, it is not known if ondansetron actually increases the chance of defects. Could taking ondansetron cause other complications? Studies did not find a higher chance of loss, delivery (delivery before 37 weeks of ), or low weight when ondansetron was used during . At higher doses, there have been reports that ondansetron use might cause a heart rhythm problem (called QT interval prolongation) in the person taking ondansetron. In severe cases, this could become an abnormal heart rhythm known as Torsades de Pointes. If you are taking ondansetron, you can talk to your healthcare provider about how to watch for changes in your heart rhythm. Does taking ondansetron in cause long-term problems in behavior or learning for the baby? One study looked at 78 infants who were exposed to ondansetron at any time during . The infants were looked at between 7 days to 2 months of age and did not show any signs of unusual behaviors. A single follow-up survey for about 25 of these children was sent in by the parents. The children were between 1 to 5 years old. The survey asked about behavior. The surveys did not report behavior differences in these children compared to children who were not exposed ondansetron during . There are no other studies looking at the use of ondansetron in and long-term effects for the baby. Can I breastfeed while taking ondansetron? There have been no studies in humans looking at the use of ondansetron during . Studies in animals suggest that ondansetron enters breast milk, but the effects of ondansetron on a infant are not known. If ondansetron use is necessary, it is not usually a reason to stop . A different drug may be considered, especially while a or infant. Be sure to talk to your healthcare provider about all your questions. I take ondansetron. Can it make it harder for me to get my partner or increase the chance of defects? There are no human studies looking at male use of ondansetron. Animal studies have not shown any effect on male fertility. In general, exposures that fathers and sperm donor have are unlikely to increase risks to a . For more information, please see the MotherWhitevector fact sheet Paternal Exposures at https://mothertobaTechpoint.org/fact-shee ts/ayrbletv-geomvgybv-ierfyhzux/pd f/. MORNING SICKNESS IN by Valentine Allison M.D. for Recorrido As you may already know, morning sickness can often be more appropriately called evening sickness or ztjfq-vxgfli-ci-the-day sickness. While there are the yamile few, most women (50-90%) experience some degree of nausea, some have vomiting, and a few develop a severe form of vomiting during called hyperemesis gravidarum. What causes the nausea and vomiting of ? We can't explain why some people feel fine and others are green for months. Even the same woman may feel vastly different in each . There is some relationship between nausea and the level of the hormone hCG. In twin pregnancies, and in other situations where the hCG is greater than expected, nausea and vomiting tend to be worse. In a destined for miscarriage, hCG levels tend to be low, and nausea is often less severe. This being said, a lack of nausea doesn't guarantee that the is destined for miscarriage. The fact that nausea and vomiting are often signs of a healthy can offer a silver lining in the dark cloud of miserable nausea. How long will the nausea last? Fortunately, for most women, nausea and vomiting are a first trimester event, peaking at week 9-10 and waning by week 14-16. When you are feeling bad the weeks can go by slowly but most moms do feel tremendously better by the middle of the . Whether morning sickness is a brief experience or lasts through most of the , there are treatments that can make the weeks or months more tolerable. What can you do about it? Diet: See what works for you. Try eating bland dry foods, and avoid fatty or spicy foods. It is okay to eat a less than perfectly balanced diet in the first trimester. Have your liquids separately from dry foods. Try sports drinks, water, clear juices, Vernon-aid, or non-caffeinated tea. Avoid carbonated beverages that fill up your stomach. Try eating lots of little meals. If you tend to feel sick when you first wake up, leave crackers next to the bed for a quick snack before rising. Keeping healthy snacks with you all day to nibble when you feel queasy can sometimes even prevent nausea from starting. vitamins and nausea: Pre-mino vitamins can sometimes worsen nausea in . While folate is necessary, especially early in the , it comes as a smaller pill that many people find more tolerable than the complete vitamin pill. Ask your practitioner if it is okay to temporarily replace vitamins and iron with just a folate pill if you find a significant worsening in the level of your nausea from the vitamins. Alternative therapies: Acupressure may be used to treat nausea in , and is not known to have any risks for the fetus. Wristbands (marketed for seasickness) that put pressure on an acupressure point at the wrist are often available at drugstores or travel stores. Len root is used for nausea in many traditional cultures. Some women take fresh grated len or len tablets. It is possible that the pill form contains other ingredients or contaminants, so you may want to try fresh len first. Medications: Emetrol is the only nausea medication approved for use in . It is available over the counter and is soothing to the stomach. A prescription medication called Bendectin was available in the -1979's and was shown to be safe in , but the company stopped marketing it in the [place] due to the costs of liability coverage. Bendectin contained 10 milligrams of vitamin B6 and 10 milligrams of Doxylamine. Two tablets were given at bedtime and a total of up to 4 tablets could be used in a 24-hour period. Interestingly, Unisom , which contains a higher dose (25 mg.) of the same medication, Doxylamine, is currently marketed as an zhnd-ltx-rxoudoy sleeping pill. Ask your practitioner if creating a vitamin B6/Doxylamine combination with cpas-qfr-wjiqxww medications would be safe for you. Prescription medications like Compazine and Phenergan can be used if the benefits outweigh possible risks, but these have not been clearly shown to be safe in . Zofran , an expensive anti-nausea medication often used to treat nausea from chemotherapy, can also be used. Can I throw up so much it harms the baby? The act of vomiting cannot hurt your fetus, which is protected inside the uterus. If you get dehydrated or develop a metabolic imbalance, this can be unhealthy. As long as you can keep down liquids, you and your baby will generally do all right. Eat when you feel able. If you are unable to keep anything down, or if you notice potential signs of dehydration such as lightheadedness, or concentrated and/or infrequent urination, call your practitioner. Some women need brief hospital admission for intravenous fluids and anti-nausea medications if their condition becomes severe. This severe form of nausea and vomiting is called Hyperemesis Gravidarum. As with many symptoms of , remind yourself that this, too, shall pass, and you'll have a wonderful baby to show for it! TREATMENT OPTIONS, SHORT VERSION: Frequent small meals Hydrate throughout day [employer] wrist pressure point applicators Len root (powdered, in capsules) 250mg four times a day Vitamin B6 25 mg tablet three times a day Also may be taken with half a tablet of Unisom three times a day (Doxylamine 12.5 mg) If severe (weight loss, dehydration), call us and come in for IV hydration and possible medication in the form of injections. Prescription medications such as Phenergan, Compazine, Reglan documented in this encounter [facility] 09-13-2024 Telephone encounter Note LMP 07/22/24 - w4d Calling c/o n/v. Hasn't been able to keep anything down since about noon yesterday. Advised to go to ER for IV fluids and medication. Encouraged to call to schedule n/v f/u after if needed. Discussed vitamin B6 and Unisom too. NOB scheduled for 09/25/24. Only need to call with further advice. Rachael Elena RN [facility] 09-13-2024 Miscellaneous Notes LMP 07/22/24 - 7w4d Calling c/o n/v. Hasn't been able to keep anything down since about noon yesterday. Advised to go to ER for IV fluids and medication. Encouraged to call to schedule n/v f/u after if needed. Discussed vitamin B6 and Unisom too. NOB scheduled for 09/25/24. Only need to call with further advice. Rachael Elena RN documented in this encounter [facility] 05-06-2024 Note HNO ID: [id number] Author: MADI MOSS APRN.[employer] C[employer]ACHINE Service: ? Author Type: Nurse Practitioner Type: Progress Notes Filed: 05/06/2024 16:36 Note Text: Data Control Clerk offered: Patient declines. Michael is a 23 year old Female who presents for Nexplanon removal for desires conception. UNIVERSAL PROTOCOL / SAFETY CHECKLIST Procedure to be Performed: Nexplanon Removal Sign In: A Moment of CARE was completed. Personnel directly involved with the procedure wore the appropriate PPE (Personal Protective Equipment). Patient/Surrogate Stated/Verified: PATIENT VERIFIED(optional for EMERGENT procedures): Patient name, Date of , Relevant allergies, and The intended procedure Time Out Communication: Intended patient and procedure match the source documents. Consent documented and matches the intended procedure. Sign Out: SIGN OUT (optional for EMERGENT procedures): No specimen collected. All instruments, equipment, possible retained foreign bodies accounted for. Post-procedure follow-up management communicated and Plan of Care Visit completed when applicable. TECHNIQUE: Patient placed in supine position with left arm bent at the elbow and placed over the head. Skin cleansed with betadine. 2 mL of 1% lidocaine with epi injected subQ along insertion site. Scalpel used to made a 5mm stab incision superficially at distal end of Nexplanon. Device removed under sterile technique with a small hemostat. Sterile pressure dressing applied. AANDP: 23 year old Female here for Nexplanon removal Nexplanon removed intact without difficulty. The patient was instructed to remove the dressing after 24 hours. Contraceptive plans: condoms Madi Moss APRN.[facility] [place] 05-06-2024 History of Present illness Narrative Data Control Clerk offered: Patient declines. Michael is a 23 year old Female who presents for Nexplanon removal for desires conception. UNIVERSAL PROTOCOL / SAFETY CHECKLIST Procedure to be Performed: Nexplanon Removal Sign In: A Moment of CARE was completed. Personnel directly involved with the procedure wore the appropriate PPE (Personal Protective Equipment). Patient/Surrogate Stated/Verified: PATIENT VERIFIED(optional for EMERGENT procedures): Patient name, Date of , Relevant allergies, and The intended procedure Time Out Communication: Intended patient and procedure match the source documents. Consent documented and matches the intended procedure. Sign Out: SIGN OUT (optional for EMERGENT procedures): No specimen collected. All instruments, equipment, possible retained foreign bodies accounted for. Post-procedure follow-up management communicated and Plan of Care Visit completed when applicable. TECHNIQUE: Patient placed in supine position with left arm bent at the elbow and placed over the head. Skin cleansed with betadine. 2 mL of 1% lidocaine with epi injected subQ along insertion site. Scalpel used to made a 5mm stab incision superficially at distal end of Nexplanon. Device removed under sterile technique with a small hemostat. Sterile pressure dressing applied. A&P: 23 year old Female here for Nexplanon removal Nexplanon removed intact without difficulty. The patient was instructed to remove the dressing after 24 hours. Contraceptive plans: condoms Madi Moss APRN.CNP documented in this encounter [facility] 05-03-2024 Note Addended by: MADI MOSS on: 05/03/2024 04:16 PM Modules accepted: Orders [facility] 05-03-2024 Miscellaneous Notes Addended by: MADI MOSS on: 05/03/2024 04:16 PM Modules accepted: Orders Addended by: MADI MOSS on: 05/03/2024 03:39 PM Modules accepted: Orders Addended by: MADI MOSS on: 05/03/2024 02:38 PM Modules accepted: Orders documented in this encounter [facility] 05-03-2024 Note Addended by: MADI MOSS on: 05/03/2024 03:39 PM Modules accepted: Orders [facility] 05-03-2024 Note Addended by: MADI MOSS on: 05/03/2024 02:38 PM Modules accepted: Orders [facility] 05-03-2024 Instructions Madi Moss APRN.CNP - 05/03/2024 2:06 PM EDT Images from the original note were not included. ____ *Revaree is a NAMS recommended, leading selling vaginal insert for the relief of symptoms of vaginal atrophy and the mandaen of the vagina's epithelial lining and pH -- hormone free. In pagz-ya-ghsm clinical trials, Revaree performed as well as estrogen creams in reducing symptoms of vaginal atrophy (dryness, itching, painful intercourse, and burning). The Revaree insert is convenient and not messy and should be used 2 to 3 times a week. Revaree is professionally recommended, easily ordered by the patient, costs about $40 per month, and shipped directly to the patient's home. Revaree is a perfect choice for women who need relief and either cannot or do not want to use hormonal therapy for their vaginal atrophy symptoms. *Clairvee is the only oral probiotic that has been proven to target the vagina's microbiome, restoring lactobacilli, and thus reducing the recurrence of BV and yeast. Rigorous clinical trials show that Clairvee significantly reduces these annoying recurrences while balancing the vagina's microbiome and pH. Clairvee should be taken orally each day for 15 days of the month; 15 days off; then resumed for 15 days and so forth. Clairvee begins to balance the microbiome in as little as 15 days with best results at 6 months. Clairvee is professionally recommended, easily ordered by the patient, costs about $35 per month, and directly shipped to the patient's home. Clairvee is a great option for patients who struggle with recurring BV and yeast who have had no other prevention strategies in the past. It is also a great choice for women who have GSM symptoms of odor, itching, and discharge with an intermediate jacqueline score, but have not had any other means to eliminate the embarrassing symptoms. *Relizen is a clinically validated, hormone free, safe, and effective therapy that significantly reduces the intensity and frequency of hot flashes. Relizen works by expressing a mild seratenurgic effect on the hypothalamus. Relizen is professionally recommended, easily ordered by the patient, costs $35 per month, and directly shipped to the patient's home. Relizen is a great choice for women who struggle with hot flashes and either cannot or do not want to use hormone therapy. How SMOKING Affects Your and Your Baby During Smoking during affects you and your baby's health before, during and after your baby is born. The nicotine (the addictive substance in cigarettes), carbon monoxide and numerous other poisons you inhale from a cigarette are carried through your bloodstream and go directly to your baby. Smoking while will: Lower the amount of oxygen available to you and your growing baby Increase your baby's heart rate Increase the chances of miscarriage and stillbirth Increase the risk that your baby is born prematurely and/or born with low weight Increase your baby's risk of developing respiratory problems The more cigarettes you smoke per day, the greater your baby's chances of developing these and other health problems. There is no safe level of smoking for your baby's health. How does secondhand smoke affect me and my baby? Second-hand smoke (also called passive smoke or environmental tobacco smoke) is the combination of smoke from a burning cigarette and smoke exhaled by a smoker. The smoke that ye off the end of a cigarette or cigar contains more harmful substances ( tar, carbon monoxide, nicotine and others) than the smoke inhaled by the smoker. If you are regularly exposed to second-hand smoke, you increase your and your baby's risk of developing lung cancer, heart disease, emphysema, allergies, asthma and other health problems. Babies exposed to second-hand smoke may also develop reduced lung capacity and are at higher risk for sudden syndrome (SIDS). What happens if I keep smoking after my baby is born? If you continue to smoke after your baby is born, you increase his or her chance of developing certain illnesses and problems, such as: Frequent colds Bronchitis and pneumonia Asthma Chronic coughs Ear infections High blood pressure Learning and behavior problems later in childhood Why should I quit smoking? Smoking is the leading cause of preventable in the [place] By quitting you can: Prolong your life Lower your risk of heart disease Lower your risk of developing lung, throat, mouth, pancreatic and bladder cancer Lower your risk of developing breathing problems such as chronic obstructive pulmonary disease (COPD), asthma and emphysema Lower your risk of developing allergies Raise your energy level Improve your appearance; your skin will wrinkle less and look better, and your fingers and teeth will not be yellow Improve your sense of smell and taste Feel healthier overall, with improved self-esteem Save a lot of money (the average smoker spends $740 a year for cigarettes!) How can I quit smoking? There is no one way to quit smoking that works for everyone, since each person has different smoking habits. Here are some tips: Hide your matches, lighters, and ashtrays. Take a deep breath and hold it for five to ten seconds whenever you get the urge to smoke. Designate your home a non-smoking area. Ask people who smoke not to smoke around you. Drink less caffeinated beverages; caffeine may stimulate your urge to smoke. Also avoid alcohol, as it also may increase your urge to smoke and can be harmful to your baby. Change your habits connected with smoking. If you smoked while driving or when feeling stressed, try other activities to replace smoking. Keep mints or gum (preferably sugarless) on hand for those times when you get the urge to smoke. Stay active to keep your mind off smoking and help relieve tension: take a walk, exercise, read a book or try a new a hobby. Look for support from others. Join a support group or smoking cessation program, such as the [facility] Smoking Cessation Program. For more information, please call . Do not go places where many people are smoking such as bars or clubs, and smoking sections of restaurants. Should I use a nicotine replacement to help me quit? Nicotine gum and patches release nicotine into the bloodstream of the smoker who is trying to quit. Although these products can reduce withdrawal symptoms and decrease cravings in smokers who are trying to quit, nicotine is quite toxic and potentially harmful to the fetus (as well as to the who is ). Therefore, these and any other products containing nicotine are not always ecommended for the woman who is trying to quit smoking. They may be prescribed in indivdual cases. How will I feel when I quit? The benefits of not smoking start within days of quitting. After you quit, you and your baby's heart beat will return to normal, and your baby will be less likely to develop breathing problems. You may have symptoms of withdrawal because your body is used to nicotine, the addictive substance in cigarettes. You may crave cigarettes, be irritable, feel very hungry, cough often, get headaches or have difficulty concentrating. The withdrawal symptoms are only temporary. They are strongest when you first quit but will go away within 10 to 14 days. When withdrawal symptoms occur, stay in control. Think about your reasons for quitting. Remind yourself that these are signs that your body is healing and getting used to being without cigarettes. Remember that withdrawal symptoms are easier to treat than the major diseases that smoking can cause. Even after the withdrawal is over, expect periodic urges to smoke. However, these cravings are generally short-lived and will go away whether you smoke or not. Don't Smoke! If you smoke again (called a relapse) do not lose hope. Seventy-five percent of those who quit relapse. Most smokers quit three times before they are successful. If you relapse, don't give up! Plan ahead and think about what you will do next time you get the urge to smoke. (This information is provided by the [facility] and is not intended to replace the medical advice of your doctor or health care provider. Please consult your health care provider for advice about a specific medical condition. For additional written health information, please call the Cancer Answer Line at [facility] Monday - Monday 8-4:30 for assistance: [phone]. Or visit [email or web address]/) A 3-dose schedule is recommended for people who get the first dose on or after their 15th birthday, and for people with certain immunocompromising conditions. In a 3-dose series, the second dose should be given 1-2 months after the first dose, and the third dose should be given 6 months after the first dose (0, 1-2, 6-month schedule). The minimum intervals are 4 weeks between the first and second dose, 12 weeks between the second and third doses, and 5 months between the first and third doses. If a vaccine dose is administered after a shorter interval, it should be re-administered after another minimum interval has elapsed since the most recent dose. If the vaccination schedule is interrupted, vaccine doses do not need to be repeated (no maximum interval). documented in this encounter [facility] 05-03-2024 Note HNO ID: [id number] Author: MADI MOSS APRN.CNP Service: ? Author Type: Nurse Practitioner Type: Progress Notes Filed: 05/03/2024 14:27 Note Text: Data Control Clerk offered: Patient declines. Michael is a 23 year old No obstetric history on file. who presents for an annual gynecologic exam with complaints of weight gain, nipple discharge, vaginal odor, and wanting Nexplanon out. Considering . Menses: Irregular menses due to Nexplanon. Contraception: Nexplanon HPV vaccine: Yes Last Pap: never HPV: NA History of abnormal pap: No Last mammogram: never Sexually active: Yes History of STDS: Gonorrhea Pain with intercourse: No Postcoital bleeding: No Exercise: walking OB History No obstetric history on file. Power Originator History LMP: 01/18/2024, Having periods Age at Menarche: Age at First : Age at Menopause: Power Originator History Comments: Sexual Activity: Yes; Male Contraception: Pill, Condom PAST MEDICAL HISTORY No date: Allergic rhinitis No date: Asthma 2019: Concussion No date: Depression 09/2019: Elevated liver enzymes Comment: Due to mono 09/2019: Mononucleosis No date: Positive JESUS (antinuclear antibody) No date: Postconcussive syndromePAST SURGICAL HISTORY No date: NONE FAMILY HISTORY Problem Relation Age of Onset Heart Maternal Grandfather Heart Paternal Grandfather Alzheimer's Disease Maternal Grandmother SOCIAL HISTORY Social History Tobacco Use Smoking status: Some Days Types: Cigarettes Last attempt to quit: 06/26/2019 Years since quittin.8 Smokeless tobacco: Never Tobacco comments: sometimes smokes . sometimes hits boyfriends vape Vaping Use Vaping Use: Former Substance Use Topics Alcohol use: Yes Comment: occ. Drug use: No REVIEW OF SYSTEMS Abdomen: No abdominal pain, nausea, vomiting, diarrhea, or constipation. No bloating, early satiety, indigestion, or increased flatulence. Bladder: No dysuria, gross hematuria, urinary frequency, urinary urgency, or incontinence. Breast: No breast lumps, overlying skin changes, redness or skin retraction. + thick nipple discharge bilaterally Allergies and current medication updated:Yes EXAM: BP 104/70 Pulse 91 Resp 14 Ht 5' 7.323 (1.71m) Wt 236 lb (107.0kg) SpO2 98% LMP 01/18/2024 BMI 36.61 kg/(m2). GENERAL: pleasant, female in no apparent distress HEENT: Normocephalic, atraumatic, mucus membranes moist, and no lesions NECK: Supple, full range of motion, no adenopathy, and thyroid normal DERMATOLOGY: Normal, without lesions, non-icteric, and non-hirsute BREAST: soft, non-tender, symmetric, no dominant mass, normal nipple-areolar complex, no lymphadenopathy, and no nipple discharge CHEST: Normal inspiratory effort ABDOMEN: soft, non-tender, and no masses PELVIC: external genitalia normal, normal Bartholin's glands, urethra, Col[place]'s glands, no vulvar lesions, no cervical lesions, good vaginal support, physiologic discharge present, normal appearing perineal body and perianal region BIMANUAL: uterus normal size, shape and consistency, no adnexal masses, and non-tender RECTOVAGINAL: deferred. NEURO: alert and oriented x3,exam grossly non-focal EXTREMITIES: normal ASSESSMENT/PLAN: 1) Health maintenance: Pap done with reflex HPV. Nutrition, exercise and routine health maintenance exams reviewed. Smoking cessation: Patient encouraged to avoid smoking. HPV vaccine: completed series 2) Contraception: Nexplanon. Planning for removal. Encouraged PNV and to stop smoking. 3) STD screening: Accepted STD check for Gonorrhea and Chlamydia. 4) Follow up one year or sooner as needed Nipple discharge - ICD9: 611.79, ICD10: N64.52 - Occurs bilaterally in shower - Avoid nipple stimulation - Labs ordered - Follow up if persistent Vaginal odor - ICD9: 625.8, ICD10: N89.8 - Recommend women's health probiotic - ALIREZA/TRICHOMONAS NAAT - BACTERIAL VAGINOSIS NAAT Obesity, unspecified classification, unspecified obesity type, unspecified whether serious comorbidity present - ICD9: 278.00, ICD10: E66.9 - Wants to lose weight before becoming - CONSULT TO I WEIGHT MANAGEMENT PROGRAM RTO for Nexplanon removal. Madi Moss, FUSING LINE INSPECTOR.CANDY CUTTER MACHINE Medical Decision Making: Problems: Low: Acute, uncomplicated illness or injury Data: Unique test(s) ordered: 3+ Risk: Low: Low risk from testing/treatment Medical Decision Making Level: 3 - Low [facility] 05-03-2024 History of Present illness Narrative Data Control Clerk offered: Patient declines. Michael is a 23 year old No obstetric history on file. who presents for an annual gynecologic exam with complaints of weight gain, nipple discharge, vaginal odor, and wanting Nexplanon out. Considering . Menses: Irregular menses due to Nexplanon. Contraception: Nexplanon HPV vaccine: Yes Last Pap: never HPV: NA History of abnormal pap: No Last mammogram: never Sexually active: Yes History of STDS: Gonorrhea Pain with intercourse: No Postcoital bleeding: No Exercise: walking OB History No obstetric history on file. Power Originator History LMP: 01/18/2024, Having periods Age at Menarche: Age at First : Age at Menopause: Power Originator History Comments: Sexual Activity: Yes; Male Contraception: Pill, Condom PAST MEDICAL HISTORY No date: Allergic rhinitis No date: Asthma 2019: Concussion No date: Depression 09/2019: Elevated liver enzymes Comment: Due to mono 09/2019: Mononucleosis No date: Positive JESUS (antinuclear antibody) No date: Postconcussive syndromePAST SURGICAL HISTORY No date: NONE FAMILY HISTORY Problem Relation Age of Onset Heart Maternal Grandfather Heart Paternal Grandfather Alzheimer's Disease Maternal Grandmother SOCIAL HISTORY Social History Tobacco Use Smoking status: Some Days Types: Cigarettes Last attempt to quit: 06/26/2019 Years since quittin.8 Smokeless tobacco: Never Tobacco comments: sometimes smokes . sometimes hits boyfriends vape Vaping Use Vaping Use: Former Substance Use Topics Alcohol use: Yes Comment: occ. Drug use: No REVIEW OF SYSTEMS Abdomen: No abdominal pain, nausea, vomiting, diarrhea, or constipation. No bloating, early satiety, indigestion, or increased flatulence. Bladder: No dysuria, gross hematuria, urinary frequency, urinary urgency, or incontinence. Breast: No breast lumps, overlying skin changes, redness or skin retraction. + thick nipple discharge bilaterally Allergies and current medication updated:Yes EXAM: BP 104/70 Pulse 91 Resp 14 Ht 5' 7.323 (1.71m) Wt 236 lb (107.0kg) SpO2 98% LMP 01/18/2024 BMI 36.61 kg/(m^2). GENERAL: pleasant, female in no apparent distress HEENT: Normocephalic, atraumatic, mucus membranes moist, and no lesions NECK: Supple, full range of motion, no adenopathy, and thyroid normal DERMATOLOGY: Normal, without lesions, non-icteric, and non-hirsute BREAST: soft, non-tender, symmetric, no dominant mass, normal nipple-areolar complex, no lymphadenopathy, and no nipple discharge CHEST: Normal inspiratory effort ABDOMEN: soft, non-tender, and no masses PELVIC: external genitalia normal, normal Bartholin's glands, urethra, Col[place]'s glands, no vulvar lesions, no cervical lesions, good vaginal support, physiologic discharge present, normal appearing perineal body and perianal region BIMANUAL: uterus normal size, shape and consistency, no adnexal masses, and non-tender RECTOVAGINAL: deferred. NEURO: alert and oriented x3,exam grossly non-focal EXTREMITIES: normal ASSESSMENT/PLAN: 1) Health maintenance: Pap done with reflex HPV. Nutrition, exercise and routine health maintenance exams reviewed. Smoking cessation: Patient encouraged to avoid smoking. HPV vaccine: completed series 2) Contraception: Nexplanon. Planning for removal. Encouraged PNV and to stop smoking. 3) STD screening: Accepted STD check for Gonorrhea and Chlamydia. 4) Follow up one year or sooner as needed Nipple discharge - ICD9: 611.79, ICD10: N64.52 - Occurs bilaterally in shower - Avoid nipple stimulation - Labs ordered - Follow up if persistent Vaginal odor - ICD9: 625.8, ICD10: N89.8 - Recommend women's health probiotic - ALIREZA/TRICHOMONAS NAAT - BACTERIAL VAGINOSIS NAAT Obesity, unspecified classification, unspecified obesity type, unspecified whether serious comorbidity present - ICD9: 278.00, ICD10: E66.9 - Wants to lose weight before becoming - CONSULT TO [facility] for Nexplanon removal. Madi Moss APRN.CNP Medical Decision Making: Problems: Low: Acute, uncomplicated illness or injury Data: Unique test(s) ordered: 3+ Risk: Low: Low risk from testing/treatment Medical Decision Making Level: 3 - Low documented in this encounter [facility] 01-28-2024 History of Present illness Narrative CC: Patient presents with: Cough: Congestion and sinus pressure x1 week HPI: Michael Palma is a 23 year old female who presents to the office with complaint of head congestion, cough, productive, and sinus symptoms for a week. Symptoms are worsening Associated symptoms includes nasal congestion and facial pain/pressure. Denies fever, nausea, vomiting , and diarrhea. Treatments tried include nothing so far. with no relief of symptoms. Sick contacts: unknown. History of asthma, frequent episodes of bronchitis, chronic bronchitis, bronchiectasis or COPD: No Smoker: No Seasonal/environmental allergies: No The ROS is otherwise negative. The patient's pmh, medications, allergies, and past visits are reviewed. PHYSICAL EXAM: BP 124/72 Pulse 90 Temp 36.3 C (97.3 F) Resp 16 Wt 102.9 kg (226 lb 13.7 oz) LMP 01/18/2024 SpO2 98% BMI 34.49 kg/m General appearance: alert, cooperative, pleasant, in no acute distress Head: Normocephalic Eyes: EOM's intact, conjunctiva pink and moist, no icterus, sclera white, non-injected Ears: Right ear: External ear/canal- Normal, TM - clear with good landmarks. Left ear: External ear/canal- Normal, TM - erythematous Oropharynx:moist without lesions, No erythema, exudates or tonsillar hypertrophy. Heart: Negative. RRR without obvious murmur, gallop, or rubs. No ectopy. Lungs: clear to auscultation, without rales or wheeze, good air exchange PAST MEDICAL HISTORY Diagnosis Date Allergic rhinitis Asthma Concussion 2019 Depression Elevated liver enzymes 09/2019 Due to mono Mononucleosis 09/2019 Positive JESUS (antinuclear antibody) Postconcussive syndrome PAST SURGICAL HISTORY Procedure Laterality Date NONE ALLERGIES Patient has no known allergies. MEDICATIONS albuterol HFA (PROAIR HFA) 90 mcg/actuation inhaler Inhale 2 Puffs as instructed every 6 hours as needed. albuterol HFA (PROVENTIL HFA, VENTOLIN HFA) 90 mcg/actuation inhaler Inhale 2 Puffs as instructed every 4 hours as needed. benzonatate (TESSALON PERLE) 100 mg capsule Take 2 capsules by mouth three times daily as needed. (Patient not taking: Reported on 10/29/2023) FLUoxetine (PROZAC) 10 mg capsule Take 10 mg by mouth once daily. (Patient not taking: Reported on 10/29/2023) fluticasone (FLONASE ALLERGY RELIEF) 50 mcg/actuation nasal spray Use 1 [place] in each nostril twice daily. (Patient not taking: Reported on 11/28/2022) FAMILY HISTORY Problem Relation Age of Onset Heart Maternal Grandfather Heart Paternal Grandfather Alzheimer's Disease Maternal Grandmother Social History Tobacco Use Smoking status: Some Days Types: Cigarettes Last attempt to quit: 06/26/2019 Years since quittin.5 Smokeless tobacco: Never Tobacco comments: sometimes smokes . sometimes hits boyfriends vape Vaping Use Vaping Use: Former Substance Use Topics Alcohol use: Yes Comment: occ. Drug use: No ASSESSMENT/PLAN: 1. Rhinosinusitis - ICD9: 473.9, ICD10: J32.9 - AMOXICILLIN 875 MG-POTASSIUM CLAVULANATE 125 MG TABLET Prescription instructions reviewed with patient as applicable. Potential red flag symptoms discussed with the patient. Reviewed appropriate action plan to take if red flag symptoms occur. Patient agreeable to treatment plan. Sophy Ulloa APRN.RUSSELL documented in this encounter [facility] 10-30-2023 History of Present illness Narrative Radiology Service Progress Note PATIENT NAME: Michael Palma DATE OF SERVICE: October 30, 2023 TIME: 11:42 AM PATIENT IDENTITY VERIFICATION COMPLETED USING TWO (2) IDENTIFIERS: Name and Date of confirmed by patient verbally. FALL SCREENING: Has the patient had 2 falls in the last year or 1 fall with injury or currently using an Ambulatory Assistive Device (Walker, Cane, Wheelchair, Crutches, etc.)? No PATIENT GENDER DATA: Female. status: : No status: NO. PATIENT RELEVANT IMPLANT DATA REVIEWED: Yes PATIENT PRESENTS WITH AN IMPLANTABLE OR ATTACHED ADVANCED PRACTICE NURSE PSYCHOTHERAPIST: No RADIOLOGY DEPARTMENT: General X-ray: Exam(s) Completed: Lower Extremity X-Ray(s): Toes, Right PERIPHERAL IV DATA: Not applicable SIGNED BY: RT Graciela(Deandre) October 30, 2023 11:42 AM documented in this encounter [facility] 10-30-2023 History of Present illness Narrative Images from the original note were not included. Subjective Patient came in with complaints of right pinky toe pain. Patient says she was getting a shower yesterday and fell on it. Patient says it is very tender to touch or walk. Patient denies any numbness tingling or loss of feeling. The history is provided by the patient. No language and literature division chair was used. Review of Systems Constitutional: Negative. Skin: Negative. Objective Physical Exam Constitutional: Appearance: Normal appearance. Pulmonary: Effort: Pulmonary effort is normal. Musculoskeletal: Feet: Feet: Comments: Patient is slightly erythematous and tender in the area marked above. Neurological: Mental Status: She is alert. PAST MEDICAL HISTORY Diagnosis Date Allergic rhinitis Asthma Concussion 2018 Depression Elevated liver enzymes 09/2019 Due to mono Mononucleosis 09/2019 Positive JESUS (antinuclear antibody) Postconcussive syndrome PAST SURGICAL HISTORY Procedure Laterality Date NONE ALLERGIES Patient has no known allergies. MEDICATIONS predniSONE (DELTASONE) 20 mg tablet Take 2 tablets by mouth once daily for 5 days. albuterol HFA (PROAIR HFA) 90 mcg/actuation inhaler Inhale 2 Puffs as instructed every 6 hours as needed. albuterol HFA (PROVENTIL HFA, VENTOLIN HFA) 90 mcg/actuation inhaler Inhale 2 Puffs as instructed every 4 hours as needed. benzonatate (TESSALON PERLE) 100 mg capsule Take 2 capsules by mouth three times daily as needed. (Patient not taking: Reported on 10/29/2023) FLUoxetine (PROZAC) 10 mg capsule Take 10 mg by mouth once daily. (Patient not taking: Reported on 10/29/2023) fluticasone (FLONASE ALLERGY RELIEF) 50 mcg/actuation nasal spray Use 1 [place] in each nostril twice daily. (Patient not taking: Reported on 11/28/2022) FAMILY HISTORY Problem Relation Age of Onset Heart Maternal Grandfather Heart Paternal Grandfather Alzheimer's Disease Maternal Grandmother Social History Tobacco Use Smoking status: Some Days Types: Cigarettes Last attempt to quit: 06/26/2019 Years since quittin.3 Smokeless tobacco: Never Tobacco comments: sometimes smokes . sometimes hits boyfriends vape Vaping Use Vaping Use: Former Substance Use Topics Alcohol use: Yes Comment: occ. Drug use: No ASSESSMENT/PLAN: 1. Pain - ICD9: 780.96, ICD10: R52 - XR TOE AP/LAT/OBL RIGHT * * * * Physician Interpretation * * * * TITLE: XR TOE 3V AP/LAT/OBL RT CLINICAL INDICATION: Pain TECHNIQUE: 3 view radiographic study of the right fifth toe COMPARISON: Right foot radiograph dated February 04, 2022 FINDINGS: Acute, oblique, minimally impacted fracture of the proximal shaft of the fifth proximal phalanx without evidence of intra-articular extension. IMPRESSION IMPRESSION: Acute fifth proximal phalanx fracture. Chaperon: SHAN Transcribe Date/Time: Oct 30 2023 12:08P Dictated by : AGNIESZKA CUNNINGHAM MD Patient was instructed to lori tape for comfort. Take it easy for couple weeks alternate Tylenol Motrin and follow-up with primary care if signs and symptoms seem to be getting worse not better. Patient was okay with this care plan. Sophy Ulloa APRN.RUSSELL documented in this encounter [facility] 10-30-2023 History of Present illness Narrative Radiology Service Progress Note PATIENT NAME: Michael Salomon DATE OF SERVICE: October 30, 2023 TIME: 10:58 AM PATIENT IDENTITY VERIFICATION COMPLETED USING TWO (2) IDENTIFIERS: Name and Date of confirmed by patient verbally. FALL SCREENING: Has the patient had 2 falls in the last year or 1 fall with injury or currently using an Ambulatory Assistive Device (Walker, Cane, Wheelchair, Crutches, etc.)? No PATIENT GENDER DATA: Female. status: : No status: NO. PATIENT RELEVANT IMPLANT DATA REVIEWED: Yes PATIENT PRESENTS WITH AN IMPLANTABLE OR ATTACHED ADVANCED PRACTICE NURSE PSYCHOTHERAPIST: No RADIOLOGY DEPARTMENT: General X-ray: Exam(s) Completed: Chest X-Ray PERIPHERAL IV DATA: Not applicable SIGNED BY: RT Graciela(R) October 30, 2023 10:58 AM documented in this encounter [facility] 10-29-2023 History of Present illness Narrative Subjective HPI HPI Michael Salomon is a 23 year old female who presents today for CC of cough, fever, n/v/d. This started 5 days ago. Has tried otc medication for relief. Symptoms are worsened by nothing. Risk factors sick exposures at home. Nonsmoker. Denies possibility of being . .Patient presents with: Cough: Congestion, vomiting, fever, diarrhea x 5 days PAST MEDICAL HISTORY Diagnosis Date Allergic rhinitis Asthma Concussion 2018 Depression Elevated liver enzymes 09/2019 Due to mono Mononucleosis 09/2019 Positive JESUS (antinuclear antibody) Postconcussive syndrome PAST SURGICAL HISTORY Procedure Laterality Date NONE ALLERGIES Patient has no known allergies. MEDICATIONS albuterol HFA (PROAIR HFA) 90 mcg/actuation inhaler Inhale 2 Puffs as instructed every 6 hours as needed. albuterol HFA (PROVENTIL HFA, VENTOLIN HFA) 90 mcg/actuation inhaler Inhale 2 Puffs as instructed every 4 hours as needed. benzonatate (TESSALON PERLE) 100 mg capsule Take 2 capsules by mouth three times daily as needed. (Patient not taking: Reported on 10/29/2023) FLUoxetine (PROZAC) 10 mg capsule Take 10 mg by mouth once daily. (Patient not taking: Reported on 10/29/2023) fluticasone (FLONASE ALLERGY RELIEF) 50 mcg/actuation nasal spray Use 1 [place] in each nostril twice daily. (Patient not taking: Reported on 11/28/2022) FAMILY HISTORY Problem Relation Age of Onset Heart Maternal Grandfather Heart Paternal Grandfather Alzheimer's Disease Maternal Grandmother Social History Tobacco Use Smoking status: Some Days Types: Cigarettes Last attempt to quit: 06/26/2019 Years since quittin.3 Smokeless tobacco: Never Tobacco comments: sometimes smokes . sometimes hits boyfriends vape Vaping Use Vaping Use: Former Substance Use Topics Alcohol use: Yes Comment: occ. Drug use: No Review of Systems Constitutional: Positive for fever and malaise/fatigue. HENT: Positive for congestion. Negative for ear pain, nosebleeds and sore throat. Respiratory: Positive for cough. Negative for shortness of breath and wheezing. Gastrointestinal: Positive for diarrhea, nausea and vomiting. Negative for abdominal pain. Musculoskeletal: Negative for neck pain. Skin: Negative for itching and rash. Objective Blood pressure 120/90, pulse 90, temperature 37.1 C (98.8 F), resp. rate 20, weight 101.3 kg (223 lb 6.4 oz), last menstrual period 04/29/2020, SpO2 98%. Physical Exam Constitutional: General: She is not in acute distress. Appearance: Normal appearance. She is not toxic-appearing or diaphoretic. HENT: Head: Normocephalic and atraumatic. Nose: Nose normal. Mouth/Throat: Pharynx: Uvula midline. No pharyngeal swelling, oropharyngeal exudate, posterior oropharyngeal erythema or uvula swelling. Eyes: General: Lids are normal. No scleral icterus. Right eye: No discharge. Left eye: No discharge. Conjunctiva/sclera: Conjunctivae normal. Pupils: Pupils are equal, round, and reactive to light. Neck: Trachea: Trachea normal. Cardiovascular: Rate and Rhythm: Normal rate and regular rhythm. Heart sounds: Normal heart sounds. Pulmonary: Effort: Pulmonary effort is normal. Breath sounds: Examination of the right-lower field reveals wheezing and rhonchi. Examination of the left-lower field reveals wheezing. Wheezing and rhonchi present. Abdominal: General: Bowel sounds are normal. Palpations: Abdomen is soft. Tenderness: There is no abdominal tenderness. Musculoskeletal: Cervical back: Normal range of motion and neck supple. Lymphadenopathy: Cervical: No cervical adenopathy. Right cervical: No superficial cervical adenopathy. Left cervical: No superficial cervical adenopathy. Skin: General: Skin is warm and dry. Findings: No rash. Neurological: Mental Status: She is alert and oriented to person, place, and time. ASSESSMENT/PLAN: 1. Viral syndrome - ICD9: 079.99, ICD10: B34.9 (primary diagnosis) - Discussed viral etiology and rationale for treatment. - Symptomatic treatment with prn analgesia - Supportive care with fluids and rest - Follow up in 3-5 days if symptoms persist or sooner if worsening of symptoms If pos for covid is outside of treatment window. - COVID & INFLUENZA A/B & RSV NAAT, ROUTINE 2. Rhonchi at right lung base - ICD9: 786.7, ICD10: R09.89 No xray at time of exam Return for xray tomorrow Treat with doxy if pos for pneumonia Go to ER for worsening s/s. - XR CHEST 2V FRONTAL/LAT Lester Darrel, FUSING LINE INSPECTOR.RUSSELL documented in this encounter [facility] 05-15-2023 History of Present illness Narrative Subjective HPI HPI Michael Salomon is a 22 year old female who presents today for CC of sinus pressure, cough, st, h/a. This started 3 days ago. Has tried otc medication for relief. Symptoms are worsened by nothing. Risk factors sick exposures recently. Smoker. Hx of asthma. Denies possibility of being . Not breast feeding. .Patient presents with: Sinus Problem: sinus pressure, drainage, sore throat, headache x 3 days PAST MEDICAL HISTORY Diagnosis Date Allergic rhinitis Asthma Concussion 2018 Depression Elevated liver enzymes 09/2019 Due to mono Mononucleosis 09/2019 Positive JESUS (antinuclear antibody) Postconcussive syndrome PAST SURGICAL HISTORY Procedure Laterality Date NONE ALLERGIES Patient has no known allergies. MEDICATIONS albuterol HFA (PROAIR HFA) 90 mcg/actuation inhaler Inhale 2 Puffs as instructed every 6 hours as needed. FLUoxetine (PROZAC) 10 mg capsule Take 10 mg by mouth once daily. albuterol HFA (PROVENTIL HFA, VENTOLIN HFA) 90 mcg/actuation inhaler Inhale 2 Puffs as instructed every 4 hours as needed. predniSONE (DELTASONE) 20 mg tablet Take 2 tablets by mouth once daily for 5 days. benzonatate (TESSALON PERLE) 100 mg capsule Take 2 capsules by mouth three times daily as needed. fluticasone (FLONASE ALLERGY RELIEF) 50 mcg/actuation nasal spray Use 1 [place] in each nostril twice daily. (Patient not taking: Reported on 11/28/2022) FAMILY HISTORY Problem Relation Age of Onset Heart Maternal Grandfather Heart Paternal Grandfather Alzheimer's Disease Maternal Grandmother Social History Tobacco Use Smoking status: Some Days Types: Cigarettes Last attempt to quit: 06/26/2019 Years since quittin.8 Smokeless tobacco: Never Tobacco comments: sometimes smokes . sometimes hits boyfriends vape Vaping Use Vaping Use: Former Substance Use Topics Alcohol use: Yes Comment: occ. Drug use: No Review of Systems Constitutional: Negative for fever. HENT: Positive for congestion and sore throat. Negative for ear pain and nosebleeds. Respiratory: Positive for cough. Negative for shortness of breath and wheezing. Cardiovascular: Negative for chest pain. Gastrointestinal: Negative for vomiting. Musculoskeletal: Negative for neck pain. Skin: Negative for itching and rash. Neurological: Positive for headaches. Objective Blood pressure 112/68, pulse 86, temperature 36.8 C (98.3 F), resp. rate 16, weight 95.7 kg (211 lb), last menstrual period 04/29/2020, SpO2 99 %. Physical Exam Constitutional: General: She is not in acute distress. Appearance: She is not toxic-appearing or diaphoretic. HENT: Head: Normocephalic and atraumatic. Right Ear: Hearing, tympanic membrane, ear canal and external ear normal. Left Ear: Hearing, tympanic membrane, ear canal and external ear normal. Nose: Nose normal. Mouth/Throat: Pharynx: Uvula midline. Posterior oropharyngeal erythema present. No pharyngeal swelling, oropharyngeal exudate or uvula swelling. Eyes: General: Lids are normal. No scleral icterus. Right eye: No discharge. Left eye: No discharge. Conjunctiva/sclera: Conjunctivae normal. Pupils: Pupils are equal, round, and reactive to light. Neck: Trachea: Trachea normal. Cardiovascular: Rate and Rhythm: Normal rate and regular rhythm. Heart sounds: Normal heart sounds. Pulmonary: Effort: Pulmonary effort is normal. Breath sounds: Normal breath sounds. Musculoskeletal: Cervical back: Normal range of motion and neck supple. Lymphadenopathy: Cervical: No cervical adenopathy. Right cervical: No superficial cervical adenopathy. Left cervical: No superficial cervical adenopathy. Skin: Findings: No rash. Neurological: Mental Status: She is alert and oriented to person, place, and time. ASSESSMENT/PLAN: 1. URI, acute - ICD9: 465.9, ICD10: J06.9 (primary diagnosis) - Discussed viral etiology and rationale for treatment. - Symptomatic treatment with prn analgesia - Supportive care with fluids and rest - Follow up in 3-5 days if symptoms persist or sooner if worsening of symptoms Discussed quarantine, social distancing otc medications discussed Push fluids -If you experience chest pain/shortness of breath go to ER - COVID NAAT, ROUTINE - PREDNISONE 20 MG TABLET - BENZONATATE 100 MG CAPSULE 2. Sore throat - ICD9: 462, ICD10: J02.9 Neg, viral - STREP A MOLECULAR (POC) 3. History of asthma - ICD9: V12.69, ICD10: Z87.09 Prednisone ordered. Lester Rojo APRN.CANDY CUTTER MACHINE documented in this encounter [facility] 03-15-2023 Miscellaneous Notes Left message for patient with negative results.Ni Hahn LPN Left message for pt to call back. Charis Gómez MA Negative covid and flu. documented in this encounter [facility] 03-15-2023 History of Present illness Narrative This note was created using [employer]. Subjective Michael Salomon is a 22 year old female. HPI Patient presents with a chief complaint of congestion, bilateral ear pain, cough and wheezing over the past 4 days. She has felt feverish but no fever recorded when she took her temperature. Her daughter is sick with URI symptoms as well. She was around a family member who had a cold recently. She does have asthma and is out of her albuterol inhaler. Denies chest pain. She has been wheezing. No vomiting. She has had some diarrhea. No home COVID test done. She has tried OTC cough and cold medicines. Review of Systems Constitutional: Positive for chills and fatigue. Negative for fever. HENT: Positive for congestion, ear pain, rhinorrhea and sore throat. Respiratory: Positive for cough, shortness of breath and wheezing. Negative for chest tightness. Cardiovascular: Negative. Gastrointestinal: Negative. Genitourinary: Negative. Musculoskeletal: Negative. All other systems reviewed and are negative. PAST MEDICAL HISTORY Diagnosis Date Allergic rhinitis Asthma Concussion 2019 Depression Elevated liver enzymes 09/2019 Due to mono Mononucleosis 09/2019 Positive JESUS (antinuclear antibody) Postconcussive syndrome Current Outpatient Medications Medication Sig Dispense Refill FLUoxetine (PROZAC) 10 mg capsule Take 10 mg by mouth once daily. albuterol HFA (PROVENTIL HFA, VENTOLIN HFA) 90 mcg/actuation inhaler Inhale 2 Puffs as instructed every 4 hours as needed. 18 g 1 predniSONE (DELTASONE) 20 mg tablet Take 2 tablets by mouth once daily for 5 days. 10 tablet 0 albuterol HFA (PROAIR HFA) 90 mcg/actuation inhaler Inhale 2 Puffs as instructed every 6 hours as needed. 1 Each 0 amoxicillin-clavulanic acid (AUGMENTIN) 875-125 mg per tablet Take 1 tablet by mouth twice daily for 7 days. 14 tablet 0 fluconazole (DIFLUCAN) 150 mg tablet Take 1 tablet by mouth one time only for 1 dose. Repeat in 3 days as needed. 2 tablet 0 fluticasone (FLONASE ALLERGY RELIEF) 50 mcg/actuation nasal spray Use 1 [place] in each nostril twice daily. (Patient not taking: Reported on 11/28/2022) 1 Each 0 No current facility-administered medications for this visit. PAST SURGICAL HISTORY Procedure Laterality Date NONE FAMILY HISTORY Problem Relation Age of Onset Heart Maternal Grandfather Heart Paternal Grandfather Alzheimer's Disease Maternal Grandmother Social History Tobacco Use Smoking status: Some Days Types: Cigarettes Last attempt to quit: 06/26/2019 Years since quittin.7 Smokeless tobacco: Never Tobacco comments: sometimes smokes . sometimes hits boyfriends vape Vaping Use Vaping Use: Former Substance Use Topics Alcohol use: Yes Comment: occ. Drug use: No Objective BP 110/68 Pulse 96 Temp 36.8 C (98.2 F) Resp 16 Wt 95.3 kg (210 lb) LMP 04/29/2020 (LMP Unknown) SpO2 98% BMI 31.93 kg/m Physical Exam Vitals reviewed. Constitutional: Appearance: Normal appearance. HENT: Head: Normocephalic and atraumatic. Right Ear: Ear canal and external ear normal. A middle ear effusion is present. Tympanic membrane is erythematous and bulging. Tympanic membrane is not perforated. Left Ear: Ear canal and external ear normal. A middle ear effusion is present. Tympanic membrane is erythematous and bulging. Tympanic membrane is not perforated. Nose: Congestion present. Mouth/Throat: Mouth: Mucous membranes are moist. Pharynx: Oropharynx is clear. Cardiovascular: Rate and Rhythm: Normal rate and regular rhythm. Heart sounds: Normal heart sounds. Pulmonary: Effort: Pulmonary effort is normal. Breath sounds: Normal breath sounds. Musculoskeletal: Cervical back: Neck supple. Skin: General: Skin is warm and dry. Neurological: Mental Status: She is alert. Assessment and Plan ASSESSMENT/PLAN: 1. Sore throat - ICD9: 462, ICD10: J02.9 (primary diagnosis) - Alere Strep Test neg, no culture pending - STREP A MOLECULAR (POC) 2. Viral URI - ICD9: 465.9, ICD10: J06.9 - Discussed viral etiology and rationale for treatment. - Symptomatic treatment with prn analgesia - Supportive care with fluids and rest - COVID WITH FLUA+B, ROUTINE 3. Acute otitis media, bilateral - ICD9: 382.9, ICD10: H66.93 - Will begin treatment with Augmentin 875 mg PO BID for 7 days - Supportive care with plenty of fluids, rest, and analgesia prn. - Follow up in 3-5 days if symptoms persist or worsen. Torri Park PA-C documented in this encounter [facility] 11-28-2022 History of Present illness Narrative Subjective HPI Nontoxic-appearing female presents urgent care chief complaint flulike symptoms. Duration of symptoms 4 days. Associated symptoms with today's chief complaint are on and off headache, muscle aches, fatigue, nonproductive cough, and fever. Has been afebrile for 24 hours. Does have new onset right ear pain. Patient states they have used [id number] medication with some success. States sick contacts similar signs and symptoms. Patient denies any pain at this time. Patient denies any visual changes, visual disturbance, shortness of breath, rash, exercise intolerance, pleuritic pain, productive cough, abdominal pain, nausea, vomiting, chest pain, or change in bowel or bladder habits. Past medical history prescription medication use allergies reviewed. Denies chance of . Is not breast-feeding .Patient presents with: Cough: Chest congestion, runny nose, bilateral ear pain x4 days PAST MEDICAL HISTORY Diagnosis Date Allergic rhinitis Asthma Concussion 2018 Depression Elevated liver enzymes 09/2019 Due to mono Mononucleosis 09/2019 Positive JESUS (antinuclear antibody) Postconcussive syndrome PAST SURGICAL HISTORY Procedure Laterality Date NONE ALLERGIES Patient has no known allergies. MEDICATIONS FLUoxetine (PROZAC) 10 mg capsule Take 10 mg by mouth once daily. albuterol HFA (PROVENTIL HFA, VENTOLIN HFA) 90 mcg/actuation inhaler Inhale 2 Puffs as instructed every 4 hours as needed. fluticasone (FLONASE ALLERGY RELIEF) 50 mcg/actuation nasal spray Use 1 [place] in each nostril twice daily. (Patient not taking: Reported on 11/28/2022) FAMILY HISTORY Problem Relation Age of Onset Heart Maternal Grandfather Heart Paternal Grandfather Alzheimer's Disease Maternal Grandmother Social History Tobacco Use Smoking status: Some Days Types: Cigarettes Last attempt to quit: 06/26/2019 Years since quittin.4 Smokeless tobacco: Never Tobacco comments: sometimes smokes . sometimes hits boyfriends vape Vaping Use Vaping Use: Former Substance Use Topics Alcohol use: Yes Comment: occ. Drug use: No BP 120/76 Pulse 100 Temp 36.6 C (97.9 F) Resp 20 Wt 104.9 kg (231 lb 3.2 oz) LMP 04/29/2020 (LMP Unknown) SpO2 98% BMI 35.15 kg/m Review of Systems Constitutional: Positive for chills, fever and malaise/fatigue. HENT: Positive for congestion. Negative for ear discharge, ear pain, sinus pain and sore throat. Eyes: Negative for blurred vision, pain, discharge and redness. Respiratory: Positive for cough. Negative for hemoptysis, sputum production, shortness of breath, wheezing and stridor. Cardiovascular: Negative for chest pain. Gastrointestinal: Negative for abdominal pain, diarrhea, nausea and vomiting. Musculoskeletal: Positive for myalgias. Skin: Negative for itching and rash. Neurological: Positive for headaches. Negative for dizziness. Objective Physical Exam Constitutional: General: She is not in acute distress. Appearance: She is not diaphoretic. HENT: Head: Normocephalic. Jaw: No trismus, tenderness, swelling or pain on movement. Right Ear: Ear canal and external ear normal. No mastoid tenderness. Tympanic membrane is erythematous and bulging. Left Ear: Tympanic membrane, ear canal and external ear normal. No mastoid tenderness. Nose: Congestion present. Mouth/Throat: Lips: [place]. Mouth: Mucous membranes are moist. Pharynx: Oropharynx is clear. Uvula midline. No pharyngeal swelling, oropharyngeal exudate, posterior oropharyngeal erythema or uvula swelling. Eyes: Conjunctiva/sclera: Conjunctivae normal. Pupils: Pupils are equal, round, and reactive to light. Cardiovascular: Rate and Rhythm: Normal rate and regular rhythm. Heart sounds: Normal heart sounds. Pulmonary: Effort: Pulmonary effort is normal. No tachypnea, accessory muscle usage or respiratory distress. Breath sounds: Normal breath sounds. No stridor. No wheezing or rales. Abdominal: Palpations: Abdomen is soft. Tenderness: There is no abdominal tenderness. There is no guarding or rebound. Musculoskeletal: Cervical back: Normal range of motion and neck supple. No rigidity or tenderness. Lymphadenopathy: Cervical: No cervical adenopathy. Skin: General: Skin is warm and dry. Neurological: Mental Status: She is alert and oriented to person, place, and time. ASSESSMENT/PLAN: 1. Suspected COVID-19 virus infection - ICD9: V01.79, ICD10: Z20.822 (primary diagnosis) - COVID WITH FLUA+B, ROUTINE 2. Acute otitis media, right - ICD9: 382.9, ICD10: H66.91 Patient will be tested for COVID-19 with flulike symptoms. Additionally placed on amoxicillin due to erythematous bulging right TM. Supportive therapies discussed. Red flags for prompt evaluation discussed. Patient was educated on supportive therapies. Patient will follow up with primary care provider as needed. Patient was instructed to immediately proceed to emergency room for any new, worsening, or symptoms lasting longer than anticipated. The patient's clinical presentation is otherwise unremarkable at this time. Based on exam and clinical finding, the patient is stable for discharge. Plan of care was discussed with patient. Patient verbalizes understanding and agrees to plan of care. This note was generated using e[employer]aze[employer] software. It may contain errors in wording, punctuation, or spelling. Joseph Alaniz APRN.[employer] documented in this encounter [facility] 05-30-2022 Note HNO ID: [id number] Author: Shayna Louis LPN Service: ? Author Type: LICENSED NURSE Type: Progress Notes Filed: 05/31/2022 2:29 PM Note Text: TRANSITIONAL CARE MANAGEMENT (TCM) COMMUNITY MONITORING PROGRAM - [place] Provider Action/FYI: SUMMARY: Pt discharged from [facility] on 05/28/2022. Admitted for: Labor and delivery Risk score: unknown Contact made with patient: No - 2nd unsuccessful attempt - end outreach and close encounter Outreach ended Unable to reach pt. Shayna Louis LPN TRANSITIONAL CARE MANAGEMENT (TCM) COMMUNITY MONITORING PROGRAM - [place] Provider Action/FYI: SUMMARY: Pt discharged from [facility] on 05/28/2022. Admitted for: Labor and delivery Risk score: unknown Contact made with patient: No - next outreach attempt will be on next Outreach ended Unable to reach patient via telephone, next outreach attempt will be 05/31/2022. Shayna Louis LPN [facility] 05-30-2022 Note Patient Outreach (AG INTMLW) MICHAEL SALOMON ([id number]) 01 F [facility] Date Time Provider Department 05/30/22 SHAYNA LOUIS AGINTMLW During your visit today, we recorded the following information about you: Shanya Louis LPN 05/31/2022 2:29 PM Addendum TRANSITIONAL CARE MANAGEMENT (TCM) COMMUNITY MONITORING PROGRAM - [place] Provider Action/FYI: SUMMARY: Pt discharged from [facility] on 05/28/2022. Admitted for: Labor and delivery Risk score: unknown Contact made with patient: No - 2nd unsuccessful attempt - end outreach and close encounter Outreach ended Unable to reach pt. Shayna Louis LPN TRANSITIONAL CARE MANAGEMENT (TCM) COMMUNITY MONITORING PROGRAM - [place] Provider Action/FYI: SUMMARY: Pt discharged from [facility] on 05/28/2022. Admitted for: Labor and delivery Risk score: unknown Contact made with patient: No - next outreach attempt will be on next day Outreach ended Unable to reach patient via telephone, next outreach attempt will be 05/31/2022. Shayna Louis LPN Allergies As of Date: 05/30/2022 (No Known Allergies) Date Reviewed: 12/22/2021 Reviewed by: Cindi Fernandez APRN.[employer]ACH[employer] - Fully Assessed Reason for Visit: Transition Of Care [4074] Cmt: [facility] discharge 05/28/2022 TCM encounter Prescriptions as of 05/31/2022 - fluticasone (FLONASE ALLERGY RELIEF) 50 mcg/actuation nasal spray Use 1 [place] in each nostril twice daily. - albuterol HFA (PROVENTIL HFA, VENTOLIN HFA) 90 mcg/actuation inhaler Inhale 2 Puffs as instructed every 4 hours as needed. Problem List As Of Date 05/30/2022 Noted Resolved Headache, unspecified headache type [R51.9] 06/28/2018 Post concussion syndrome [F07.81] 06/28/2018 10/11/2019 Neck pain [M54.2] 06/28/2018 Depression, major, single episode, mild (HCC) [*06/28/2018 Insomnia due to stress [F51.02] 06/28/2018 Infectious mononucleosis [B27.90] 10/10/2019 Elevated liver enzymes [R74.8] 10/10/2019 Jaundice [R17] 10/10/2019 11/10/2020 Right hip pain [M25.551] 10/11/2019 Asthma [J45.909] JESUS positive [R76.8] Mononucleosis [B27.90] 09/2019 Hepatitis A antibody positive [R76.8] 10/25/2019 11/10/2020 Pain in joint, multiple sites [M25.50] 01/30/2020 Malaise and fatigue [R53.81, R53.83] 01/30/2020 Anxiety and depression [F41.9, F32.A] 11/10/2020 Obesity, Class II, BMI 35-39.9 [E66.9] 04/05/2021 Kidney stone on right side [N20.0] 11/29/2021 COVID-19 affecting , antepartum [O98.5*11/01/2021 Maternal obesity, antepartum [O99.210] 11/15/2021 care, antepartum [Z34.90] 11/15/2021 16 weeks gestation of [Z3A.16] 11/29/2021 Encounter Status:Closed by SHAYNA LOUIS on 05/30/22 [facility] 11-29-2021 Note HNO ID: [id number] Author: Mendoza Negro MD Service: ? Author Type: Physician Type: Progress Notes Filed: 11/29/2021 6:01 PM Note Text: VIRTUAL VISIT PROGRESS NOTE This is a virtual visit using [employer] video visit. It required patient-provider interaction for the medical decision making as documented below. Michael Salomon is a 21 year old female seen for + JESUS. Whole life had joint pains. Frequent colds and flue. Saw Dr. Pate for + JESUS, but no rheumatic disease found. Over last 2 years, had COVID 2 times. No vaccine. Last COVID was while . Early . Now she is 18 weeks and referred back to rheumatology. Some elevated BP during this . Going to high risk doctor. 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 Pulse oxygen did not drop during COVID. Asthma flared and she used Used inhalers. Hips and knees hurt.This is chronic. HISTORY REVIEWED (electronic chart updated): PAST MEDICAL HISTORY Diagnosis Date - Allergic rhinitis - Asthma - Concussion 2018 - Depression - Elevated liver enzymes 09/2019 Due to mono - Mononucleosis 09/2019 - Positive JESUS (antinuclear antibody) - Postconcussive syndrome PAST SURGICAL HISTORY Procedure Laterality Date - NONE FAMILY HISTORY Problem Relation Age of Onset - Heart Maternal Grandfather - Heart Paternal Grandfather - Alzheimer's Disease Maternal Grandmother Social History Tobacco Use - Smoking status: Current Some Day Smoker Last attempt to quit: 06/26/2019 Years since quittin.4 - Smokeless tobacco: Never Used - Tobacco comment: sometimes smokes . sometimes hits boyfriends vape Vaping Use - Vaping Use: Former Substance Use Topics - Alcohol use: Yes Comment: occ. - Drug use: No Current Outpatient Medications Medication Sig - SPRINTEC 0.25-35 mg-mcg per tablet Take 1 tablet by mouth once daily. - medroxyPROGESTERone (PROVERA, CYCRIN) 10 mg tablet Take 10 mg by mouth once daily. - fluticasone propionate (FLOVENT DISKUS) 100 mcg/actuation inhaler Inhale as instructed twice daily. - triamcinolone acetonide (NASACORT AQ) 55 mcg nasal inhaler Use 2 Sprays in the nose once daily. - albuterol HFA (PROVENTIL HFA, VENTOLIN HFA) 90 mcg/actuation inhaler Inhale 2 Puffs as instructed every 4 hours as needed. No current facility-administered medications for this visit. ALLERGIES No Known Allergies REVIEW OF SYSTEMS: No rash, pleurisy , pericarditis raynaud or nephritis. + overweight. First . PHYSICAL EXAMINATION: Healthy, NAD. 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 ASSESSMENT/PLAN: 1. JESUS positive - ICD9: 795.79, ICD10: R76.8 (primary diagnosis) - ANTI-CARDIOLIPIN AB - THYROID PEROXIDASE ANTIBODY BLOOD - B 2 GPI IGG AND IGM - DNA ANTIBODY DS BLD - CBC + DIFF - COMP METABOLIC PANEL - URINALYSIS, WITH MICROSCOPIC - ANTI AUDRA ID 2. Malaise and fatigue - ICD9: 780.79, ICD10: R53.81, R53.83 TSH 3. 16 weeks gestation of - ICD9: V22.2, ICD10: Z3A.16 High risk Mendoza Belcher MD ASSESSMENT: PLAN: Mendoza Belcher MD I spent a total of 50 minutes on the date of the service which included preparing to see the patient, [id number] patient care, completing clinical documentation, obtaining and/or reviewing separately obtained history, performing a medically appropriate examination, counseling and educating the patient/family/caregiver, ordering medications, tests, or procedures, communicating with other HCPs (not separately reported), independently interpreting results (not separately reported) and communicating results to the patient/family/caregiver. Provider Location: [facility] Patient Location: Patient Home or Place of Residence Medical Decision Making [facility] 10-25-2019 History of Past i llness Narrative Problem Noted Date Resolved Date Hepatitis A antibody positive 10/25/2019 Jaundice 10/10/2019 11/10/2020 Post concussion syndrome 06/28/2018 020 documented as of this encounter (statuses as of 11/28/2022) [address] History of Past illness Narrative* Problem Noted Date Resolved Date Hepatitis A antibody positive 10/25/2019 Jaundice 10/10/2019 11/10/2020 Post concussion syndrome 06/28/2018 020 documented as of this encounter (statuses as of 03/15/2023) [address]07-2020 History of Past illness Narrative* Problem Noted Date Resolved Date Hepatitis A antibody positive 10/25/2019 Jaundice 10/10/2019 11/10/2020 Post concussion syndrome 06/28/2018 020 documented as of this encounter (statuses as of 03/16/2023) [address] History of Past illness Narrative* Problem Noted Date Diagnosed Date Resolved Date Hepatitis A antibody positive 10/25/2019 11/10/2020 Jaundice 10/10/2019 11/10/2020 Post concussion syndrome 06/28/2018 documented as of this encounter (statuses as of 05/15/2023) [address] History of Past illness Narrative* Problem Noted Date Diagnosed Date Resolved Date Hepatitis A antibody positive 10/25/2019 11/10/2020 Jaundice 10/10/2019 11/10/2020 Post concussion syndrome 06/28/2018 documented as of this encounter (statuses as of 10/29/2023) [address] History of Past illness Narrative* Problem Noted Date Diagnosed Date Resolved Date Hepatitis A antibody positive 10/25/2019 11/10/2020 Jaundice 10/10/2019 11/10/2020 Post concussion syndrome 06/28/2018 documented as of this encounter (statuses as of 10/30/2023) [facility] Diagnosis Supervision of high risk in second trimester Unspecified high-risk Maternal obesity, antepartum Edema or excessive weight gain, antepartum documented in this encounter [facility] Work Phone: Evaluation noteNo assessment information available [facility] Work Phone: [facility] note* Diagnosis Onset Date Resolution Status Gestational hypertension acu te acute Vaginal delivery acute [facility] Work Phone: evaluation note* Diagnosis Suspected COVID-19 virus infection- Primary Acute otitis media, right Unspecified otitis media documented in this encounter [facility] note* Diagnosis Sore throat- Primary Acute pharyngitis Viral URI Acute upper respiratory infections of unspecified site Acute otitis media, bilateral Unspecified otitis media documented in this encounter [facility] note* Diagnosis URI, acute- Primary Acute upper respiratory infections of unspecified site Sore throat Acute pharyngitis History of asthma Personal history of other diseases of respiratory system documented in this encounter [facility] note* Diagnosis Viral syndrome- Primary Unspecified viral infection, in conditions classified elsewhere and of unspecified site Rhonchi at right lung base documented in this encounter [facility] note* Diagnosis Pain- Primary Generalized pain documented in this encounter [facility] note* Diagnosis Rhinosinusitis- Primary Unspecified sinusitis (chronic) documented in this encounter [facility] note* Diagnosis Encounter for gynecological examination (general) (routine) with abnormal findings- Primary Screening for cervical cancer Screening for malignant neoplasm of the cervix Encounter for screening for human papillomavirus (HPV) Special screening examination for human papillomavirus (HPV) Nexplanon removal Surveillance of previously prescribed implantable subdermal contraceptive Screening examination for STD (sexually transmitted disease) Screening examination for venereal disease Nipple discharge Other sign and symptom in breast Vaginal odor Unspecified symptom associated with female genital organs Obesity, unspecified classification, unspecified obesity type, unspecified whether serious comorbidity present documented in this encounter [facility] note* Diagnosis Nexplanon removal- Primary Surveillance of previously prescribed implantable subdermal contraceptive Screening for STD (sexually transmitted disease) Screening examination for venereal disease documented in this encounter [facility] note* Diagnosis Pain Generalized pain documented in this encounter [facility] note* Diagnosis Encounter for supervision of high risk in first trimester, antepartum- Primary Less than 8 weeks gestation of state, incidental with uncertain dates in first trimester Hx of preeclampsia, prior , currently with other poor obstetric history Obesity affecting in first trimester, unspecified obesity type History of depression Nausea and vomiting during Heartburn during in first trimester Family history of Down syndrome Family history of congenital anomalies Family history of autism Family history of psychiatric condition Headache, unspecified headache type Asthma affecting in first trimester Anxiety and depression Dysthymic disorder [facility] Diagnosis Supervision of high risk in first trimester- Primary Unspecified high-risk Hx of preeclampsia, prior , currently with other poor obstetric history Obesity affecting in first trimester, unspecified obesity type 12 weeks gestation of state, incidental [facility] Diagnosis 12 weeks gestation of - Primary state, incidental Encounter for supervision of high risk in first trimester, antepartum [facility] Diagnosis Urinary frequency- Primary Vaginal discharge Leukorrhea, not specified as infective 19 weeks gestation of state, incidental [facility] Diagnosis BV (bacterial vaginosis)- Primary Vaginitis and vulvovaginitis, unspecified [facility] Diagnosis Obesity affecting in first trimester, unspecified obesity type- Primary 16 weeks gestation of state, incidental Supervision of high risk in second trimester Unspecified high-risk [facility] Diagnosis Bacterial sinusitis- Primary Unspecified sinusitis (chronic) [facility] Diagnosis Supervision of high risk in second trimester (HCC)- Primary Unspecified high-risk Hx of preeclampsia, prior , currently (HCC) with other poor obstetric history Obesity affecting in second trimester, unspecified obesity type (HCC) 20 weeks gestation of ([facility]) state, incidental Traumatic trauma, unspecified [facility] Diagnosis Encounter for anatomic survey ([facility])- Primary Encounter for anatomic survey 20 weeks gestation of ([facility]) state, incidental Obesity affecting in second trimester, unspecified obesity type (HCC) [facility] Diagnosis Supervision of high risk in second trimester (HCC)- Primary Unspecified high-risk 24 weeks gestation of ([facility]) state, incidental Obesity affecting in second trimester, unspecified obesity type ([facility]) Hx of preeclampsia, prior , currently ([facility]) with other poor obstetric history Traumatic trauma, unspecified Anxiety and depression Dysthymic disorder Heartburn during in first trimester ([facility]) documented in this encounter [facility] note* Diagnosis Screening for diabetes mellitus- Primary Supervision of high risk in second trimester ([facility]) Unspecified high-risk Hx of preeclampsia, prior , currently ([facility]) with other poor obstetric history Traumatic trauma, unspecified Anxiety and depression Dysthymic disorder 28 weeks gestation of ([facility]) state, incidental Obesity affecting in second trimester, unspecified obesity type ([facility]) documented in this encounter [facility] note* Diagnosis 30 weeks gestation of ([facility])- Primary state, incidental Hx of preeclampsia, prior , currently ([facility]) with other poor obstetric history documented in this encounter [facility] note* Diagnosis Hx of preeclampsia, prior , currently ([facility])- Primary with other poor obstetric history LGA (large for gestational age) infant ([facility]) Other [id number] infants * Assessment & Plan Note - Ny Ulloa MD - 03/20/2025 10:17 AM EDTAssociated Problem(s): Hx of preeclampsia, prior , currently ([facility]) * Assessment & Plan Note - Ny Ulloa MD - 03/20/2025 10:17 AM EDTAssociated Problem(s): LGA (large for gestational age) infant ([facility]) EFW >99%. Discussed 39 week IOL. Repeat growth US in 4 weeks. documented in this encounter [facility] note* Diagnosis Encounter for ultrasound to check growth ([facility])- Primary Encounter for routine screening for malformation using ultrasonics Obesity affecting in second trimester, unspecified obesity type ([facility]) 32 weeks gestation of ([facility]) state, incidental Hx of preeclampsia, prior , currently ([facility])- Primary with other poor obstetric history LGA (large for gestational age) ([facility]) Other [id number] infants [facility] Diagnosis Hx of preeclampsia, prior , currently ([facility])- Primary with other poor obstetric history LGA (large for gestational age) infant ([facility]) Other blmpj-ehs-tfxig infants Supervision of high risk in second trimester ([facility])- Primary Unspecified high-risk Hx of preeclampsia, prior , currently ([facility]) with other poor obstetric history LGA (large for gestational age) ([facility]) Other rkqkp-sxk-ixbun infants Traumatic trauma, unspecified Anxiety and depression Dysthymic disorder 34 weeks gestation of ([facility]) state, incidental documented in this encounter [facility] note* Diagnosis Hx of preeclampsia, prior , currently ([facility])- Primary with other poor obstetric history LGA (large for gestational age) infant ([facility]) Other rsxue-rzh-xpuuc infants Supervision of high risk in second trimester ([facility])- Primary Unspecified high-risk Hx of preeclampsia, prior , currently ([facility]) with other poor obstetric history LGA (large for gestational age) ([facility]) Other qcaai-vlb-rqdwp infants Obesity in ([facility]) Obesity complicating , childbirth, or the puerperium, unspecified as to episode of care or not applicable 36 weeks gestation of ([facility]) state, incidental * Assessment & Plan Note - Iveth Walker MD - 04/18/2025 2:56 PM EDT Associated Problem(s): Hx of preeclampsia, prior , currently ([facility]) Orders: URINE OB DIP B/O ROUTINE, GROUP B STREPTOCOCCUS BY PCR * Assessment & Plan Note - Iveth Walker MD - 04/18/2025 2:56 PM EDT Associated Problem(s): LGA (large for gestational age) ([facility]) Official us pending but AC >99 and EFW 97%- will need to discuss possible CS if EFW >5000g. Considering membrane sweeps at 37 weeks. Orders: URINE OB DIP B/O ROUTINE, GROUP B STREPTOCOCCUS BY PCR documented in this encounter [facility] note* Diagnosis Hx of preeclampsia, prior , currently ([facility])- Primary with other poor obstetric history LGA (large for gestational age) ([facility]) Other mycqk-bvr-ellmq infants Encounter for ultrasound to check growth ([facility])- Primary Encounter for routine screening for malformation using ultrasonics Obesity affecting in second trimester, unspecified obesity type ([facility]) 36 weeks gestation of ([facility]) state, incidental Supervision of high risk in second trimester ([facility])- Primary Unspecified high-risk Hx of preeclampsia, prior , currently ([facility]) with other poor obstetric history LGA (large for gestational age) infant ([facility]) Other mszry-umt-pihsk infants Obesity in ([facility]) Obesity complicating , childbirth, or the puerperium, unspecified as to episode of care or not applicable 36 weeks gestation of ([facility]) state, incidental documented in this encounter [facility] note* Diagnosis Hx of preeclampsia, prior , currently ([facility])- Primary with other poor obstetric history LGA (large for gestational age) ([facility]) Other oerhh-tfu-kssew infants Supervision of high risk in second trimester ([facility])- Primary Unspecified high-risk Hx of preeclampsia, prior , currently ([facility]) with other poor obstetric history LGA (large for gestational age) infant ([facility]) Other jxloq-rzf-lpbmx infants Obesity in ([facility]) Obesity complicating , childbirth, or the puerperium, unspecified as to episode of care or not applicable 36 weeks gestation of ([facility]) state, incidental 37 weeks gestation of ([facility])- Primary state, incidental Supervision of high risk in second trimester ([facility]) Unspecified high-risk Obesity in ([facility]) Obesity complicating , childbirth, or the puerperium, unspecified as to episode of care or not applicable documented in this encounter [facility] for referral (narrative)* Diagnostic Procedure Only (Urgent) - Closed Specialty Diagnoses / Procedures Referred By Contac t Referred To Contact XR IMAGING Diagnoses Pain Procedures XR TOE AP/LAT/OBL RIGHT RADEX TOE MINIMUM 2 VIEWS Sophy Ulloa APRN.CANDY CUTTER MACHINE [address] [place] [address] [place] [address] Referral ID Status Reason Start Date Expiration Date V isits Requested Visits Authorized [id number] Closed Auto-Generate d Referral 10/30/2023 11/28/2024 1 1 [facility] for referral (narrative)* Diagnostic Procedure Only (Urgent) - Closed Specialty Diagnoses / Procedures Referred By Contac t Referred To Contact XR IMAGING Diagnoses Pain Procedures XR TOE AP/LAT/OBL RIGHT RADEX TOE MINIMUM 2 VIEWS Sophy Ulloa APRN.CANDY CUTTER MACHINE [address] [place] [address] [place] [address] Referral ID Status Reason Start Date Expiration Date V isits Requested Visits Authorized [id number] Closed Auto-Generate d Referral 10/30/2023 11/28/2024 1 1 [facility] for referral (narrative)* Diagnostic Procedure Only (Routine) - Authorized Specialty Diagnoses / Procedures Referred By Contac t Referred To Contact [facility] Diagnoses Encounter for supervision of high risk in first trimester, antepartum Procedures NUCHAL TRANSLUCENCY WHI US NUCHAL TRANSLUCENCY 1ST GESTATION Madi Moss APRN.CANDY CUTTER MACHINE [address] [place] [address] [facility] [address] [place] [address] Referral ID Status Reason Start Date Expiration Date Visits Requested Visits Authorized [id number] Authorized Auto-Generat ed Referral 09/25/2024 09/25/2025 1 1 * Diagnostic Procedure Only (Routine) - New Request Specialty Diagnoses / Procedures Referred By Contac t Referred To Contact [facility] Diagnoses Less than 8 weeks gestation of with uncertain dates in first trimester Procedures OBSTETRIC ULTRASOUND WHI US PREG UTERUS AFTER 1ST TRIMEST GESTATION Madi Moss APRN.CANDY CUTTER MACHINE [address] [place] [address] [facility] [address] [place] [address] Referral ID Status Reason Start Date Expiration Date Visits Requested Visits Authorized [id number] New Request Auto-Generat ed Referral 09/25/2024 09/25/2025 1 1 [facility] for visit Narrative* Diagnostic Procedure Only (Urgent) - Closed Specialty Diagnoses / Procedures Referred By Contac t Referred To Contact XR IMAGING Diagnoses Pain Procedures XR TOE AP/LAT/OBL RIGHT RADEX TOE MINIMUM 2 VIEWS Sophy Ulloa APRN.CANDY CUTTER MACHINE [address] [place] [address] [place] [address] Referral ID Status Reason Start Date Expiration Date V isits Requested Visits Authorized [id number] Closed Auto-Generate d Referral 10/30/2023 11/28/2024 1 1 [facility] for visit Narrative* Diagnostic Procedure Only (Routine) - Closed Specialty Diagnoses / Procedures Referred By Meseret t Referred To Contact [facility] Diagnoses 28 weeks gestation of ([facility]) Obesity affecting in second trimester, unspecified obesity type ([facility]) Procedures OBSTETRIC ULTRASOUND WHI US PREG UTERUS AFTER 1ST TRIMEST GESTATION Mayelin Duran APRN.CNM [address] [place] [address] Phone: tel: fax: [facility] [address] [place] [phone] Referral ID Status Reason Start Date Expiration Date V isits Requested Visits Authorized [id number] Closed Auto-Generate d Referral 02/21/2025 02/21/2026 5 1 [facility] Summary Purpose Family History No Family History Records Found Relationship Condition Age at Onset Recorded Date/T marcin father Diabetes mellitus Unknown Not Specified Cardiac disease Unknown mother Gastroesophageal reflux disease Unknown grandfather Cardiac disease Unknown Advance Directives No Advanced Directives Records Found Advance Directive Response Recorded Date/ Time Living Will No April 12, 2021 8:58pm Power of Cpc Coder No April 12 8:58pm Advance Directive Response Recorded Date/ Time Living Will No May 25 10:06pm Power of Cpc Coder No May 25, 2022 10:06pm Chief Complaint and Reason for Visit 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 Reason for Visit Gestational hyperten teo Vaginal delivery Health Concerns Infection Onset Date Last Indicated Resolved Time COVID-19 Rule-Out 11/28/2022 11/28/2022 11/28/2022 7:50 PM EDT Infection Onset Date Last Indicated Resolved Time COVID-19 Rule-Out 03/15/2023 03/15/2023 Infection Onset Date Last Indicated Resolved Time COVID-19 Rule-Out 03/15/2023 03/15/2023 03/15/2023 4:56 PM EDT Infection Onset Date Last Indicated Resolved Time COVID-19 Rule-Out 05/15/2023 05/15/2023 Infection Onset Date Last Indicated Resolved Time Influenza 10/29/2023 10/29/2023 Reason for Referral Specialty Diagnoses / Procedures Referred By Contac t Referred To Contact Diagnoses Obesity, unspecified classification, unspecified obesity type, unspecified whether serious comorbidity present Procedures CONSULT TO [facility] OFFICE/OUTPATIENT [facility] MDM 60 MINUTES Madi Moss APRN.C[employer] CUTTER MACHINE [address] [place] [address] Referral ID Status Reason Start Date Expiration Date Visits Requested Visits Authorized [id number] Authorized PCP Requested Referral Auto-Generate d Referral 05/03/2024 05/03/2025 1 1 Referral ID Status Reason Start Date Expiration Date Visits Requested Visits Authorized [id number] Authorized PCP Requested Referral Auto-Generate d Referral 05/03/2024 05/03/2025 1 1 Specialty Diagnoses / Procedures Referred By Contac t Referred To Contact [facility] Diagnoses Nexplanon removal Procedures NEXPLANON REMOVAL REMOVAL NON-BIODEGRADABLE DRUG DELIVERY IMPLANT Madi Moss APRN.CANDY CUTTER MACHINE [address] [place] [address] [facility] [address] [place] [address] Referral ID Status Reason Start Date Expiration Date Visits Requested Visits Authorized [id number] Authorized Auto-Generat ed Referral 05/03/2024 05/03/2025 1 1 Additional Source Comments INFORMATION SOURCE (unrecogn ized section and content) DATE CREATED AUTHOR 04/06/2020 [facility] DATE CREATED AUTHOR AUTHOR'S ORGANIZ ATION 12/25/2021 [facility] DATE CREATED AUTHOR AUTHOR'S ORGANIZ ATION 01/26/2022 [facility] DATE CREATED AUTHOR AUTHOR'S ORGANIZ ATION 06/15/2022 [facility] DATE CREATED AUTHOR AUTHOR'S ORGANIZ ATION 03/14/2025 [facility] DATE CREATED AUTHOR AUTHOR'S ORGANIZ ATION 03/22/2025 [facility] DATE CREATED AUTHOR AUTHOR'S ORGANIZ ATION 04/25/2025 [facility] DATE CREATED AUTHOR AUTHOR'S ORGANIZ ATION 05/07/2025 [facility] Care Teams (unrecognized sec tion and content) 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 Relationship Specialty Start Date End Date Gabriella Cassidy MD [address] [place] [address] PCP - General Internal Medicine 10/19/21 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 Relationship Specialty Start Date End Date Giuliana Bullard APRN.CANDY CUTTER MACHINE [address] [place], [place] [id number] PCP - General Family Medicine 10/17/18 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 Relationship Specialty Start Date End Date Giuliana Bullard APRN.CANDY CUTTER MACHINE [address], [place] [id number] PCP - General Family Medicine 10/17/18 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 Relationship Specialty Start Date End Date Giuliana Bullard APRN.CANDY CUTTER MACHINE [address] [place], [place] [id number] PCP - General Family Medicine 10/17/18 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 Relationship Specialty Start Date End Date Giuliana Bullard APRN.CANDY CUTTER MACHINE [address] [place] [address] PCP - General Family Medicine 10/17/18 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 Relationship Specialty Start Date End Date Giuliana Bullard A, FUSING LINE INSPECTOR.CANDY CUTTER MACHINE [address] [place] [address] PCP - General Family Medicine 10/17/18 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 Relationship Specialty Start Date End Date Giuliana Bullard A, FUSING LINE INSPECTOR.CANDY CUTTER MACHINE [address] [place] [address] PCP - General Family Medicine 10/17/18 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 Relationship Specialty Start Date End Date Giuliana Bullard A, FUSING LINE INSPECTOR.CANDY CUTTER MACHINE [address] [place] [address] PCP - General Family Medicine 10/17/18 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 Relationship Specialty Start Date End Date Giuliana Bullard A, FUSING LINE INSPECTOR.CANDY CUTTER MACHINE [address] [place] [address] PCP - General Family Medicine 10/17/18 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 Relationship Specialty Start Date End Date Giuliana Bullard A, FUSING LINE INSPECTOR.CANDY CUTTER MACHINE [address] [place] [address] PCP - General Family Medicine 10/17/18 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 Relationship Specialty Start Date End Date Giuliana Bullard A, FUSING LINE INSPECTOR.CANDY CUTTER MACHINE [address] [place] [address] PCP - General Family Medicine 10/17/18 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 Relationship Specialty Start Date End Date Giuliana Bullard A, FUSING LINE INSPECTOR.CANDY CUTTER MACHINE [address] [place] [address] PCP - General Family Medicine 10/17/18 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 Relationship Specialty Start Date End Date Giuliana Bullard, FUSING LINE INSPECTOR.CANDY CUTTER MACHINE [address] [place] [address] PCP - General Family Medicine 10/17/18 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 Relationship Specialty Start Date End Date Giuliana Bullard, FUSING LINE INSPECTOR.CANDY CUTTER MACHINE [address] [place] [address] PCP - General Family Medicine 10/17/18 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 Relationship Specialty Start Date End Date Giuliana Bullard, FUSING LINE INSPECTOR.CANDY CUTTER MACHINE [address] [place] [address] PCP - General Family Medicine 10/17/18 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 Relationship Specialty Start Date End Date Giuliana Bullard, FUSING LINE INSPECTOR.CANDY CUTTER MACHINE [address] [place] [address] PCP - General Family Medicine 10/17/18 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 Relationship Specialty Start Date End Date Giuliana Bullard, FUSING LINE INSPECTOR.CANDY CUTTER MACHINE [address] [place] [address] PCP - General Family Medicine 10/17/18 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 Relationship Specialty Start Date End Date Giuliana Bullard, FUSING LINE INSPECTOR.CANDY CUTTER MACHINE [address] [place] [address] PCP - General Family Medicine 10/17/18 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 Relationship Specialty Start Date End Date Giuliana Bullard, FUSING LINE INSPECTOR.CANDY CUTTER MACHINE [address] [place] [address] PCP - General Family Medicine 10/17/18 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 Relationship Specialty Start Date End Date Giuliana Bullard, FUSING LINE INSPECTOR.CANDY CUTTER MACHINE [address] [place] [address] PCP - General Family Medicine 10/17/18 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 Relationship Specialty Start Date End Date Giuliana Bullard, FUSING LINE INSPECTOR.CANDY CUTTER MACHINE [address] [place] [address] PCP - General Family Medicine 10/17/18 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 Relationship Specialty Start Date End Date Giuliana Bullard, FUSING LINE INSPECTOR.CANDY CUTTER MACHINE [address] [place] [address] PCP - General Family Medicine 10/17/18 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 Relationship Specialty Start Date End Date Giuliana Bullard, FUSING LINE INSPECTOR.CANDY CUTTER MACHINE [address] [place] [address] PCP - General Family Medicine 10/17/18 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 Relationship Specialty Start Date End Date Giuliana Bullard, FUSING LINE INSPECTOR.CANDY CUTTER MACHINE [address] [place] [address] PCP - General Family Medicine 10/17/18 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 Relationship Specialty Start Date End Date Giuliana Bullard A, FUSING LINE INSPECTOR.CANDY CUTTER MACHINE [address] [place] [address] PCP - General Family Medicine 10/17/18 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 Relationship Specialty Start Date End Date Giuliana Bullard, FUSING LINE INSPECTOR.CANDY CUTTER MACHINE [address] [place] [address] PCP - General Family Medicine 10/17/18 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 Relationship Specialty Start Date End Date Giuliana Bullard, FUSING LINE INSPECTOR.CANDY CUTTER MACHINE [address] [place] [address] PCP - General Family Medicine 10/17/18 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 Relationship Specialty Start Date End Date Giuliana Bullard, FUSING LINE INSPECTOR.CANDY CUTTER MACHINE [address] [place] [address] PCP - General Family Medicine 10/17/18 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 Relationship Specialty Start Date End Date Giuliana Bullard A, FUSING LINE INSPECTOR.CANDY CUTTER MACHINE [address] [place] [address] PCP - General Family Medicine 10/17/18 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 Relationship Specialty Start Date End Date Giuliana Bullard A, FUSING LINE INSPECTOR.CANDY CUTTER MACHINE [address] [place] [address] PCP - General Family Medicine 10/17/18 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 Relationship Specialty Start Date End Date Giuliana Bullard, FUSING LINE INSPECTOR.CANDY CUTTER MACHINE [address] [place] [address] PCP - General Family Medicine 10/17/18 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 Relationship Specialty Start Date End Date Giuliana Bullard A, FUSING LINE INSPECTOR.CANDY CUTTER MACHINE [address] [place] [address] PCP - General Family Medicine 10/17/18 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 Relationship Specialty Start Date End Date Giuliana Bullard A, FUSING LINE INSPECTOR.CANDY CUTTER MACHINE [address] [place] [address] PCP - General Family Medicine 10/17/18 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 Relationship Specialty Start Date End Date Giuliana Bullard A, FUSING LINE INSPECTOR.CANDY CUTTER MACHINE [address] [place] [address] PCP - General Family Medicine 10/17/18 Goals (unrecognized section and content) Goals may be documented in a n alternate sectionGoals may be documented in an alternate section Source Comments (unrecognize d section and content) In the event this informatio n is protected by the Federal Confidentiality of Alcohol and Drug Abuse Patient Records regulations: The Federal rules restrict any use of the information to criminally investigate or prosecute any alcohol or drug abuse patient.[facility] the event this information is protected by the Federal Confidentiality of Alcohol and Drug Abuse Patient Records regulations: The Federal rules restrict any use of the information to criminally investigate or prosecute any alcohol or drug abuse patient.[facility] Hospital[facility] the event this information is protected by the Federal Confidentiality of Alcohol and Drug Abuse Patient Records regulations: The Federal rules restrict any use of the information to criminally investigate or prosecute any alcohol or drug abuse patient.[facility] HospitalIn the event this information is protected by the Federal Confidentiality of Alcohol and Drug Abuse Patient Records regulations: The Federal rules restrict any use of the information to criminally investigate or prosecute any alcohol or drug abuse patient.[facility] Hospital[facility] the event this information is protected by the Federal Confidentiality of Alcohol and Drug Abuse Patient Records regulations: The Federal rules restrict any use of the information to criminally investigate or prosecute any alcohol or drug abuse patient.[facility] Hospital[facility] the event this information is protected by the Federal Confidentiality of Alcohol and Drug Abuse Patient Records regulations: The Federal rules restrict any use of the information to criminally investigate or prosecute any alcohol or drug abuse patient.[facility] HospitalIn the event this information is protected by the Federal Confidentiality of Alcohol and Drug Abuse Patient Records regulations: The Federal rules restrict any use of the information to criminally investigate or prosecute any alcohol or drug abuse patient.[facility] HospitalIn the event this information is protected by the Federal Confidentiality of Alcohol and Drug Abuse Patient Records regulations: The Federal rules restrict any use of the information to criminally investigate or prosecute any alcohol or drug abuse patient.[facility] HospitalIn the event this information is protected by the Federal Confidentiality of Alcohol and Drug Abuse Patient Records regulations: The Federal rules restrict any use of the information to criminally investigate or prosecute any alcohol or drug abuse patient.[facility] HospitalIn the event this information is protected by the Federal Confidentiality of Alcohol and Drug Abuse Patient Records regulations: The Federal rules restrict any use of the information to criminally investigate or prosecute any alcohol or drug abuse patient.[facility] HospitalIn the event this information is protected by the Federal Confidentiality of Alcohol and Drug Abuse Patient Records regulations: The Federal rules restrict any use of the information to criminally investigate or prosecute any alcohol or drug abuse patient.[facility] HospitalIn the event this information is protected by the Federal Confidentiality of Alcohol and Drug Abuse Patient Records regulations: The Federal rules restrict any use of the information to criminally investigate or prosecute any alcohol or drug abuse patient.[facility] HospitalIn the event this information is protected by the Federal Confidentiality of Alcohol and Drug Abuse Patient Records regulations: The Federal rules restrict any use of the information to criminally investigate or prosecute any alcohol or drug abuse patient.[facility] HospitalIn the event this information is protected by the Federal Confidentiality of Alcohol and Drug Abuse Patient Records regulations: The Federal rules restrict any use of the information to criminally investigate or prosecute any alcohol or drug abuse patient.[facility] HospitalIn the event this information is protected by the Federal Confidentiality of Alcohol and Drug Abuse Patient Records regulations: The Federal rules restrict any use of the information to criminally investigate or prosecute any alcohol or drug abuse patient.[facility] HospitalIn the event this information is protected by the Federal Confidentiality of Alcohol and Drug Abuse Patient Records regulations: The Federal rules restrict any use of the information to criminally investigate or prosecute any alcohol or drug abuse patient.[facility] HospitalIn the event this information is protected by the Federal Confidentiality of Alcohol and Drug Abuse Patient Records regulations: The Federal rules restrict any use of the information to criminally investigate or prosecute any alcohol or drug abuse patient.[facility] HospitalIn the event this information is protected by the Federal Confidentiality of Alcohol and Drug Abuse Patient Records regulations: The Federal rules restrict any use of the information to criminally investigate or prosecute any alcohol or drug abuse patient.[facility] HospitalIn the event this information is protected by the Federal Confidentiality of Alcohol and Drug Abuse Patient Records regulations: The Federal rules restrict any use of the information to criminally investigate or prosecute any alcohol or drug abuse patient.[facility] HospitalIn the event this information is protected by the Federal Confidentiality of Alcohol and Drug Abuse Patient Records regulations: The Federal rules restrict any use of the information to criminally investigate or prosecute any alcohol or drug abuse patient.[facility] HospitalIn the event this information is protected by the Federal Confidentiality of Alcohol and Drug Abuse Patient Records regulations: The Federal rules restrict any use of the information to criminally investigate or prosecute any alcohol or drug abuse patient.[facility] HospitalIn the event this information is protected by the Federal Confidentiality of Alcohol and Drug Abuse Patient Records regulations: The Federal rules restrict any use of the information to criminally investigate or prosecute any alcohol or drug abuse patient.[facility] HospitalIn the event this information is protected by the Federal Confidentiality of Alcohol and Drug Abuse Patient Records regulations: The Federal rules restrict any use of the information to criminally investigate or prosecute any alcohol or drug abuse patient.[facility] HospitalIn the event this information is protected by the Federal Confidentiality of Alcohol and Drug Abuse Patient Records regulations: The Federal rules restrict any use of the information to criminally investigate or prosecute any alcohol or drug abuse patient.[facility] HospitalIn the event this information is protected by the Federal Confidentiality of Alcohol and Drug Abuse Patient Records regulations: The Federal rules restrict any use of the information to criminally investigate or prosecute any alcohol or drug abuse patient.[facility] HospitalIn the event this information is protected by the Federal Confidentiality of Alcohol and Drug Abuse Patient Records regulations: The Federal rules restrict any use of the information to criminally investigate or prosecute any alcohol or drug abuse patient.[facility] HospitalIn the event this information is protected by the Federal Confidentiality of Alcohol and Drug Abuse Patient Records regulations: The Federal rules restrict any use of the information to criminally investigate or prosecute any alcohol or drug abuse patient.[facility] HospitalIn the event this information is protected by the Federal Confidentiality of Alcohol and Drug Abuse Patient Records regulations: The Federal rules restrict any use of the information to criminally investigate or prosecute any alcohol or drug abuse patient.[facility] HospitalIn the event this information is protected by the Federal Confidentiality of Alcohol and Drug Abuse Patient Records regulations: The Federal rules restrict any use of the information to criminally investigate or prosecute any alcohol or drug abuse patient.[facility] HospitalIn the event this information is protected by the Federal Confidentiality of Alcohol and Drug Abuse Patient Records regulations: The Federal rules restrict any use of the information to criminally investigate or prosecute any alcohol or drug abuse patient.[facility] HospitalIn the event this information is protected by the Federal Confidentiality of Alcohol and Drug Abuse Patient Records regulations: The Federal rules restrict any use of the information to criminally investigate or prosecute any alcohol or drug abuse patient.[facility] HospitalIn the event this information is protected by the Federal Confidentiality of Alcohol and Drug Abuse Patient Records regulations: The Federal rules restrict any use of the information to criminally investigate or prosecute any alcohol or drug abuse patient.[facility] HospitalIn the event this information is protected by the Federal Confidentiality of Alcohol and Drug Abuse Patient Records regulations: The Federal rules restrict any use of the information to criminally investigate or prosecute any alcohol or drug abuse patient.[facility] HospitalIn the event this information is protected by the Federal Confidentiality of Alcohol and Drug Abuse Patient Records regulations: The Federal rules restrict any use of the information to criminally investigate or prosecute any alcohol or drug abuse patient.[facility] HospitalIn the event this information is protected by the Federal Confidentiality of Alcohol and Drug Abuse Patient Records regulations: The Federal rules restrict any use of the information to criminally investigate or prosecute any alcohol or drug abuse patient.[facility] HospitalIn the event this information is protected by the Federal Confidentiality of Alcohol and Drug Abuse Patient Records regulations: The Federal rules restrict any use of the information to criminally investigate or prosecute any alcohol or drug abuse patient.[facility] HospitalIn the event this information is protected by the Federal Confidentiality of Alcohol and Drug Abuse Patient Records regulations: The Federal rules restrict any use of the information to criminally investigate or prosecute any alcohol or drug abuse patient.[facility] HospitalIn the event this information is protected by the Federal Confidentiality of Alcohol and Drug Abuse Patient Records regulations: The Federal rules restrict any use of the information to criminally investigate or prosecute any alcohol or drug abuse patient.[facility] HospitalIn the event this information is protected by the Federal Confidentiality of Alcohol and Drug Abuse Patient Records regulations: The Federal rules restrict any use of the information to criminally investigate or prosecute any alcohol or drug abuse patient.[facility] HospitalIn the event this information is protected by the Federal Confidentiality of Alcohol and Drug Abuse Patient Records regulations: The Federal rules restrict any use of the information to criminally investigate or prosecute any alcohol or drug abuse patient.[facility] HospitalIn the event this information is protected by the Federal Confidentiality of Alcohol and Drug Abuse Patient Records regulations: The Federal rules restrict any use of the information to criminally investigate or prosecute any alcohol or drug abuse patient.[facility] HospitalIn the event this information is protected by the Federal Confidentiality of Alcohol and Drug Abuse Patient Records regulations: The Federal rules restrict any use of the information to criminally investigate or prosecute any alcohol or drug abuse patient.[facility] HospitalIn the event this information is protected by the Federal Confidentiality of Alcohol and Drug Abuse Patient Records regulations: The Federal rules restrict any use of the information to criminally investigate or prosecute any alcohol or drug abuse patient.[facility] HospitalIn the event this information is protected by the Federal Confidentiality of Alcohol and Drug Abuse Patient Records regulations: The Federal rules restrict any use of the information to criminally investigate or prosecute any alcohol or drug abuse patient.[facility] HospitalIn the event this information is protected by the Federal Confidentiality of Alcohol and Drug Abuse Patient Records regulations: The Federal rules restrict any use of the information to criminally investigate or prosecute any alcohol or drug abuse patient.[facility] HospitalIn the event this information is protected by the Federal Confidentiality of Alcohol and Drug Abuse Patient Records regulations: The Federal rules restrict any use of the information to criminally investigate or prosecute any alcohol or drug abuse patient.[facility] HospitalIn the event this information is protected by the Federal Confidentiality of Alcohol and Drug Abuse Patient Records regulations: The Federal rules restrict any use of the information to criminally investigate or prosecute any alcohol or drug abuse patient.[facility] Reason for Visit (unrecogniz ed section and content) Reason Comments Cough Chest congestion, ru nny nose, bilateral ear pain x4 days Reason Comments Head Congestion cough, bilateral ear pain and sore throat x 4 days Reason Comments Results Reason Comments Sinus Problem sinus pressure, drai nage, sore throat, headache x 3 days Reason Comments Cough Congestion, vomiting , fever, diarrhea x 5 days Reason Comments right little toe pain Fell yesterdayt Reason Comments Cough Congestion and sinus pressure x1 week Reason Comments Well Woman Reason Comments Nexplanon Removal Specialty Diagnoses / Procedures Referred By Meseret bird Referred To Contact [facility] Diagnoses Nexplanon removal Procedures NEXPLANON REMOVAL REMOVAL NON-BIODEGRADABLE DRUG DELIVERY IMPLANT Madi Moss APRN.[employer] [address] [place] [address] [facility] [place] [address] [place] [address] Referral ID Status Reason Start Date Expiration Date V isits Requested Visits Authorized [id number] Closed Auto-Generate d Referral 05/03/2024 05/03/2025 1 1 Reason Comments Nausea Reason Comments OB - N/V Reason Comments Initial OB Visit Reason Comments PRAF Reason Onset Date Comments Refill Request 09/30/2024 Reason Onset Date Comments Refill Request 10/21/2024 Reason Onset Date Comments Care 11/01/2024 Reason Comments US Specialty Diagnoses / Procedures Referred By Contac t Referred To Contact [facility] Diagnoses Encounter for supervision of high risk in first trimester, antepartum Procedures NUCHAL TRANSLUCENCY WHI US NUCHAL TRANSLUCENCY 1ST GESTATION Madi Moss APRN.[facility] [address] [place] [address] Phone: tel: fax: [place] [phone] [place] [address] Referral ID Status Reason Start Date Expiration Date V isits Requested Visits Authorized [id number] Closed Auto-Generate d Referral 09/25/2024 09/25/2025 1 1 Reason Comments Vaginal Problem Vaginal itching, swe lling, discharge and odor x 2 days and some frequency Reason Onset Date Comments Results 11/07/2024 Alireza Reason Comments Breast Pump Reason Onset Date Comments Care 11/28/2024 Reason Comments Sinus Problem sinus pressure, drai nage, ear pressure, chest congestion, cough x 3 weeks, 17 weeks Reason Onset Date Comments Care 12/27/2024 Specialty Diagnoses / Procedures Referred By Meseret bird Referred To Contact [facility] Diagnoses Less than 8 weeks gestation of (HCC) with uncertain dates in first trimester (HCC) Procedures OBSTETRIC ULTRASOUND WHI US PREG UTERUS AFTER 1ST TRIMEST 1 GESTATION Madi Moss APRN.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 Reason Onset Date Comments Care 03/07/2025 Reason Comments Care Coordination M-Power SchedulingLM attempt # 1 Reason Onset Date Comments Care 03/20/2025 Reason Comments Care Coordination M-Power SchedulingLM attempt # 2 Reason Onset Date Comments Care 04/04/2025 Reason Comments Refill Request Reason Onset Date Comments Care 04/18/2025 Specialty Diagnoses / Procedures Referred By Contac t Referred To Contact [facility] Diagnoses 28 weeks gestation of (HCC) Obesity affecting in second trimester, unspecified obesity type (HCC) Procedures OBSTETRIC ULTRASOUND WHI US PREG UTERUS AFTER 1ST TRIMEST GESTATION Mayelin Duran APRN.[facility] [address] [place] [address] Phone: tel: fax: [address] [phone] Referral ID Status Reason Start Date Expiration Date V isits Requested Visits Authorized [id number] Closed Auto-Generate d Referral 02/21/2025 02/21/2026 5 1 Reason Onset Date Comments Care 04/28/2025 Specialty Diagnoses / Procedures Referred By Contac t Referred To Contact [facility] Diagnoses Supervision of high risk in second trimester (HCC) Obesity in (HCC) Procedures NON-STRESS TEST NON-STRESS TEST Iveth Walker MD [address] [place] [address] Phone: tel: fax: [address] [phone] Referral ID Status Reason Start Date Expiration Date V isits Requested Visits Authorized [id number] Closed Auto-Generate d Referral 04/18/2025 04/18/2026 5 1 FOR RECORDS PERTAINING TO PATIENTS WHO ARE OR HAVE BEEN ENROLLED IN A CHEMICAL DEPENDENCY/SUBSTANCEABUSE PROGRAM, SOME INFORMATION MAY BE OMITTED. This clinical summary was aggregated from multiple sources. Caution should be exercised in using it in the provision of clinical care. This summary normalizes information from multiple sources, and as a consequence, information in this document may materially change the coding, format and clinical context of patient data. In addition, data may be omitted in some cases. CLINICAL DECISIONS SHOULD BE BASED ON THE PRIMARY CLINICAL RECORDS. [employer] provides no warranty or guarantee of the accuracy or completeness of information in this document.
--- OUTSIDE RECORDS SUMMARY | 2025-05-07 07:26 | XMS RPT_ITS | CCD ---
Author Organization [facility] Care Team Providers Care Special Day Class Teacher Name Role Phone Gabriella Cassidy MD Primary Care Provider Unavail able QUEDEN, IGULIANA A Primary Care Unavailable MENDOZA CHUA Attending Unavailable MENDOZA CHUA Referring Unavailable QUEDEN, GIULIANA A Primary Care Unavailable Queden RECORD TESTER.RUSSELL Giuliana A Primary Care Provider Queden RECORD TESTER.RUSSELL Giuliana A Primary Care Provider QUEDEN, GIULIANA [...] Attending Unavailable Queden, Giuliana Primary Care Unavailable Ny Ulloa Admitting Unavailable Ny Ulloa Attending Unavailable Queden, Giuliana Primary Care Unavailable Medications Current Medications Medication Drug Class(es) Dates Sig (Normalized) Sig (Original) [id number] 200 actuat albuterol 0.09 mg/actuat metered dose [...] TWICE A DAY March 29, 2021 12:00am Burghill-3 Fatty Acids (FISH OIL OMEGA-3 PO) (1 source) Burghill-3 Fatty Ac ids (FISH OIL OMEGA-3 PO) [...] 1 tablet by mouth once daily. Active Jksdejiq-Iwc-Nr-Fa () 1 mg Tablet (1 source) Start: 05-25-2022 take 1 tablet by mouth once daily Wpebylmu-Bsj-Yc-Fa () 1 mg Tablet Active 1 TABLET [...] Indications: Viral URI with cough Use 1 Hegins in each nostril twice daily. 1 Each 12/22/2021 05/06/2024 Discontinued Start: 04-12-2021 Fluticasone Pr opionate (Flovent Diskus) 100 mcg/actuation blister with device Active INHALATION April 12, 2021 12:00am Comment on above: Use 1 Hegins in each nostril twice daily. metroNIDAZOLE 500 [...] 5 Glucose Ql (U) Negative Neg mg/dL [facility] Interpretation and review of laboratory results Normal [facility] Protein.monoclonal (U) [Mass/Vol] Negative Neg mg/dL [facility] Examination level ultrasound on 04-18-2025 [facility] Radiology Study observation (narrative) [facility] ROUTINE, GROUP B ST REPTOCOCCUS BY PCRon 04-18-2025 ROUTINE, GROUP B STREPTOCOCCUS BY PCR Not detected Normal [facility] Comment on above: Performed By: #### G BPCR ####[facility] LABCLIA [id number] [address] STATES OF [facility] URINE OB DIP B/Oon 5 Glucose Ql (U) Negative Neg mg/dL [facility] Interpretation and review of laboratory results Normal [facility] Protein.monoclonal (U) [Mass/Vol] Negative Neg mg/dL [facility] CNPNon 04-07-2025 CNPN Telephone ([id number]) -- MICHAEL PALMA ([id number]) 2 F UPA Date Time Provider Department 04/07/25 SARAH MAHMOOD [id number] During your visit today, we recorded the following information about you: Sarah Mahmood RN 04/07/2025 8:21 AM Signed 3rd risk assessment form submitted 04/07/2025. 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 [3602] Cmt: JAY Prescriptions as [...] Status:Closed by SARAH MAHMOOD on 04/07/25 Normal [facility] URINE OB DIP B/Oon Glucose Ql (U) Negative Neg mg/dL [facility] Interpretation and review of laboratory results Normal [facility] Protein.monoclonal (U) [Mass/Vol] Negative Neg mg/dL [facility] CNPNon 03-20-2025 CNPN Telephone (FV3L+D) -- MICHAEL PALMA ([id number]) 2 F UPA Date Time Provider Department 03/20/25 MPOWER FV OB LANDD FV3L+D During your visit today, we recorded the following information about you: Allergies As of Date: 03/20/2025 (No Known Allergies) Date Reviewed: 03/20/2025 Reviewed by: Ny Ulloa MD - Fully Assessed Reason for Visit: Care Coordination [0372] Cmt: M-Power Scheduling LM attempt # 2 [...] Status:Closed by ANA LAU on 03/20/25 Normal [facility] Examination level ultrasound on 03-20-2025 [facility] Radiology Study observation (narrative) [facility] Hollie 03-13-2025 XU Telephone (HLL+D) -- LOUIEMICHAEL ([id number]) 01 F UPA Date Time Provider Department [...] Encounter Status:Closed by ANA LAU on 03/13/25 [facility] 02-24-2025 [facility] Telephone ([id number]) -- MICHAEL PALMA ([id number]) 01 F [facility] Date Time Provider Department 02/24/25 SARAH MAHMOOD [id number] During your visit today, we recorded the following information about you: Sarah Mahmood RN 02/24/2025 9:21 AM Signed 2nd risk assessment form submitted 02/24/2025. 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 [7043] Cmt: JAY Prescriptions as of 02/24/2025 - [...] Status:Closed by SARAH MAHMOOD on 02/24/25 Normal [facility] GLUCOSE GESTATIONAL, 1 HOURo n 02-22-2025 Glucose 1 Hr post Unsp challenge [Mass/Vol] 130 mg/dL Normal 74-179 [facility] Comment on above: Order Comment: Speci men Type: BLOOD SPECIMEN Ordering Facility: [facility] Address: [address] [place] [address] [place] [address] Result Comment: [facility] Congress of Obstetricians and Gynecologists (Chatterjee/Coustan) guidelines state gestational diabetes mellitus is present when 2 or more of the plasma glucose concentrations meet or exceed the following levels: fastin mg/dl, 1 hr: 180 mg/dl, 2 hr: 155 mg/dl, and 3 hr: 140 mg/dl. Performed By: #### 2 4323-8 #### [facility] [id number] [address] [place] [address] [place] GLUCOSE GESTATIONAL, 2 HOURo n 02-22-2025 Glucose 2 Hr post Unsp challenge [Mass/Vol] 103 mg/dL Normal 74-154 [facility] Comment on above: Order Comment: Cheryl raza Type: BLOOD SPECIMENOrdering Facility: [facility] Address: [address] [place] [address] Result Comment: [facility] Congress of Obstetricians and Gynecologists (Sen/Yoselyn) guidelines state gestational diabetes mellitus is present when 2 or more of the plasma glucose concentrations meet or exceed the following levels: fastin mg/dl, 1 hr: 180 mg/dl, 2 hr: 155 mg/dl, and 3 hr: 140 mg/dl. Performed By: #### G TGST2 ####[facility] LABCLIA [id number] [place] [address] [place] GLUCOSE GESTATIONAL, 3 HOURo n 02-22-2025 Glucose 3 Hr post Unsp challenge [Mass/Vol] 159 mg/dL High 74-139 [facility] Comment on above: Order Comment: Cheryl raza Type: BLOOD SPECIMENOrdering Facility: [facility] Address: [address] [place] [address] Result Comment: [facility] Congress of Obstetricians and Gynecologists (Chatterjee/Lynnstan) guidelines state gestational diabetes mellitus is present when 2 or more of the plasma glucose concentrations meet or exceed the following levels: fastin mg/dl, 1 hr: 180 mg/dl, 2 hr: 155 mg/dl, and 3 hr: 140 mg/dl. Performed By: #### G TGST3 ####[facility] LABCLIA [id number] [place] [address] [place] GLUCOSE GESTATIONAL, FASTING on 02-22-2025 Glucose post fast [Mass/Vol] 87 mg/dL Normal 74-94 [facility] Comment on above: Order Comment: Speci men Type: BLOOD SPECIMEN Ordering Facility: [facility] Address: [address] [place] [address] Result Comment: [facility] Congress of Obstetricians and Gynecologists (Sen/Yoselyn) guidelines state gestational diabetes mellitus is present when 2 or more of the plasma glucose concentrations meet or exceed the following levels: fastin mg/dl, 1 hr: 180 mg/dl, 2 hr: 155 mg/dl, and 3 hr: 140 mg/dl. Performed By: #### G TGSTF #### [facility] CLIA [id number] [address] [place] [address] [place] CBC W Auto Differential pane l (Bld)on 02-21-2025 Basophils (Bld) [#/Vol] 10*3/uL Normal <0.11 [facility] Comment on above: Order Comment: Speci men Type: BLOOD SPECIMENOrdering Facility: [facility] Address: [address] [place] [address] Performed By: #### 5 7021-8 ####[facility] [id number] [place] [address] [place] Basophils/100 WBC (Bld) 0.2 % Normal [facility] Comment on above: Order Comment: Speci men Type: BLOOD SPECIMENOrdering Facility: [facility] Address: [address] [place] [address] Performed By: #### 5 7021-8 ####[facility] [id number] [place] [address] [place] Differential cell count method Nom (Bld) Auto Normal [facility] Comment on above: Order Comment: Speci men Type: BLOOD SPECIMENOrdering Facility: [facility] Address: [address] [place] [address] Performed By: #### 5 7021-8 ####[facility] MILLWNCLIA [id number] [place] [address] [place] Eosinophils (Bld) [#/Vol] 0.05 10*3/uL Normal <0.46 [facility] Comment on above: Order Comment: Speci men Type: BLOOD SPECIMENOrdering Facility: [facility] Address: [address] [place] [address] Performed By: #### 5 7021-8 ####[facility] [id number] [place] [address] [place] Eosinophils/100 WBC (Bld) 0.5 % Normal [facility] Comment on above: Order Comment: Speci men Type: BLOOD SPECIMENOrdering Facility: [facility] Address: [address] [place] [address] Performed By: #### 5 7021-8 ####[facility] [id number] [place] [address] [place] Erythrocyte distribution width (RBC) [Ratio] 13.5 % Normal 11.5-15.0 [facility] Comment on above: Order Comment: Speci men Type: BLOOD SPECIMENOrdering Facility: [facility] Address: [address] [place] [address] Performed By: #### 5 7021-8 ####[facility] [id number] [place] [address] [place] Hematocrit (Bld) [Volume fraction] 35.8 % Low 36.0-46.0 [facility] Comment on above: Order Comment: Speci men Type: BLOOD SPECIMENOrdering Facility: [facility] Address: [address] [place] [address] Performed By: #### 5 7021-8 ####[facility] [id number] [place] [address] [place] Hemoglobin (Bld) [Mass/Vol] 11.6 g/dL Normal 11.5-15.5 [facility] Comment on above: Order Comment: Speci men Type: BLOOD SPECIMENOrdering Facility: [facility] Address: [address] [place] [address] Performed By: #### 5 7021-8 ####[facility] [id number] [place] [address] [place] Immature granulocytes (Bld) [#/Vol] 0.04 10*3/uL Normal <0.10 [facility] Comment on above: Order Comment: Speci men Type: BLOOD SPECIMENOrdering Facility: [facility] Address: [address] [place] [address] Performed By: #### 5 7021-8 ####[facility] [id number] [place] [address] [place] Immature granulocytes/100 WBC (Bld) 0.4 % Normal [facility] Comment on above: Order Comment: Speci men Type: BLOOD SPECIMENOrdering Facility: [facility] Address: [address] [place] [address] Performed By: #### 5 7021-8 ####[facility] [id number] [place] [address] [place] Lymphocytes (Bld) [#/Vol] 2.29 10*3/uL Normal 1.00-4.00 [facility] Comment on above: Order Comment: Speci men Type: BLOOD SPECIMENOrdering Facility: [facility] Address: [address] [place] [address] Performed By: #### 5 7021-8 ####[facility] [id number] [place] [address] [place] Lymphocytes/100 WBC (Bld) 21.1 % Normal [facility] Comment on above: Order Comment: Speci men Type: BLOOD SPECIMENOrdering Facility: [facility] Address: [address] [place] [address] Performed By: #### 5 7021-8 ####[facility] ELENOEddieNCBRAYAN [id number] [address] STATES [facility] MCH (RBC) [Entitic mass] 26.4 pg Normal 26.0-34.0 [facility] Comment on above: Order Comment: Speci men Type: BLOOD SPECIMENOrdering Facility: [facility] Address: [address] [place] [address] Performed By: #### 5 7021-8 ####[facility] [id number] [address] [place] MCHC (RBC) [Mass/Vol] 32.4 g/dL Normal 30.5-36.0 [facility] Comment on above: Order Comment: Speci men Type: BLOOD SPECIMENOrdering Facility: [facility] Address: [address] [place] [address] Performed By: #### 5 7021-8 ####[facility] HOSPITALNCA [id number] [address] [place] MCV (RBC) [Entitic vol] 81.4 fL Normal 80.0-100.0 [facility] Comment on above: Order Comment: Speci men Type: BLOOD SPECIMENOrdering Facility: [facility] Address: [address] [place] [address] Performed By: #### 5 7021-8 ####[facility]ITALNCLIA [id number] [place] [address] [place] Monocytes (Bld) [#/Vol] 0.47 10*3/uL Normal <0.87 [facility] Comment on above: Order Comment: Speci men Type: BLOOD SPECIMENOrdering Facility: [facility] Address: [address] [place] [address] [place] [address] Performed By: #### 5 7021-8 ####[facility] ELENOWREYESLIA [id number] [place] [address] [place] Monocytes/100 WBC (Bld) 4.3 % Normal [facility] Comment on above: Order Comment: Speci men Type: BLOOD SPECIMENOrdering Facility: [facility] Address: [address] [place] [address] Performed By: #### 5 7021-8 ####[facility] HOSPITALREYESLIA [id number] [place] [address] [place] Neutrophils (Bld) [#/Vol] 7.96 10*3/uL High 1.45-7.50 [facility] Comment on above: Order Comment: Speci men Type: BLOOD SPECIMENOrdering Facility: [facility] Address: [address] [place] [address] Performed By: #### 5 7021-8 ####[facility] [id number] [place] [address] [place] Neutrophils/100 WBC (Bld) 73.5 % Normal [facility] Comment on above: Order Comment: Speci men Type: BLOOD SPECIMENOrdering Facility: [facility] Address: [address] [place] [address] Performed By: #### 5 7021-8 ####[facility] [id number] [place] [address] [place] Nucleated RBC (Bld) [#/Vol] 10*3/uL Normal <0.01 [facility] Comment on above: Order Comment: Speci men Type: BLOOD SPECIMENOrdering Facility: [facility] Address: [address] [place] [address] Performed By: #### 5 7021-8 ####[facility]ALL[facility] [id number] [place] [address] [place] Nucleated RBC/100 WBC (Bld) [Ratio] 0.0 /100 WBC Normal [facility] Comment on above: Order Comment: Speci men Type: BLOOD SPECIMENOrdering Facility: [facility] Address: [address] [place] [address] Performed By: #### 5 7021-8 ####[facility]ITALNC[facility] [id number] [place] [address] [place] Platelet mean volume (Bld) [Entitic vol] 9.5 fL Normal 9.0-12.7 [facility] Comment on above: Order Comment: Speci men Type: BLOOD SPECIMENOrdering Facility: [facility] Address: [address] [place] [address] Performed By: #### 5 7021-8 ####[facility] [id number] [place] [address] [place] Platelets (Bld) [#/Vol] 281 10*3/uL Normal 150-400 [facility] Comment on above: Order Comment: Speci men Type: BLOOD SPECIMENOrdering Facility: [facility] Address: [address] [place] [address] Performed By: #### 5 7021-8 ####[facility] [id number] [place] [address] [place] RBC (Bld) [#/Vol] 4.40 10*6/uL Normal 3.90-5.20 [facility] Comment on above: Order Comment: Speci men Type: BLOOD SPECIMENOrdering Facility: [facility] Address: [address] [place] [address] Performed By: #### 5 7021-8 ####[facility]ITALNCLI [id number] [place] [address] [place] WBC (Bld) [#/Vol] 10.83 10*3/uL Normal 3.70-11.00 [facility] Comment on above: Order Comment: Speci men Type: BLOOD SPECIMENOrdering Facility: [facility] Address: [address] [place] [address] Performed By: #### 5 7021-8 ####[facility] [id number] [place] [address] [place] GESTATIONAL GLUCOSE SCREEN, 1-HOUR, 50 GRAM, NON-FASTINGOrdered By: Amada Fitzgerald on 02-21-2025 Glucose [Mass/Vol] 138 mg/dL High 74 - 134 mg/dL [facility] Comment on above: [place] Congress of Obstetricians and Gynecologists (Sen/Lynnstan) guidelines state a gestational diabetes mellitus positive screen is made, in women not previously diagnosed with overt diabetes, when the 1 hr plasma glucose level is equal to or above 140 mg/dL. [facility] recommends a 135 mg/dL cutoff. Interpretation and review of laboratory results Abnormal [facility] GESTATIONAL GLUCOSE SCREEN, 1-HOUR, 50 GRAM, NON-FASTINGon 02-21-2025 Glucose [Mass/Vol] 138 mg/dL High 74-134 [facility] Comment on above: Order Comment: Cheryl raza Type: BLOOD SPECIMENOrdering Facility: [facility] Address: [address] [place] [address] Result Comment: [facility] Congress of Obstetricians and Gynecologists (Sen/Ruthyan) guidelines state a gestational diabetes mellitus positive screen is made, in women not previously diagnosed with overt diabetes, when the 1 hr plasma glucose level is equal to or above 140 mg/dL. [facility] recommends a 135 mg/dL cutoff. Performed By: #### G LTGST ####[facility] [id number] [place] [address] [place] Reagin and Treponema pallidu m IgG and IgM [Interp]on 02-21-2025 T. pallidum IgG+IgM IA Ql (S) Non-Reactive Normal Nonreactive [facility] Comment on above: Order Comment: Speci men Type: BLOOD SPECIMEN Order[facility] Address: [address] [place] [address] Performed By: #### 2 4323-8 #### [facility] CLIA [id number] [address] [place] [address] [place] Reagin+T pallidum IgG+IgM Se rPl-Impon 02-21-2025 Reagin and Treponema pallidum IgG and IgM [Interp] Cannot exclude recent Treponemal infection if specimen collected within 7-10 days after appearance of suspect lesions or 2-3 weeks after an exposure. Clinical correlation is required. Normal [facility] Comment on above: Order Comment: Speci men Type: BLOOD SPECIMEN [facility] Address: [address] [place] [address] Performed By: #### 2 4323-8 #### [facility] CLIA [id number] [address] [place] [address] [place] Examination level ultrasound [...] 1 oz EFW by: Hadlock (HC-AC-FL) Extended Harness Placer 6.3 mm CM 4.9 mm 45% Nicolaides [...] normal LVOT view: normal 3-vessel view: normal 3-ytvwfi-kwntwsc view: normal Heart / Thorax Situs: situs [...] Read By: Regina Covington M.D. MATERNAL MEDICINE [facility] Examination level ultrasound on 12-27-2024 Radiology Study observation (narrative) [facility] CNOVon 12-04-2024 CNOV Office Visit (UCWSTR ) -- MICHAEL PALMA ([id number]) 2 F [facility] Date Time Provider Department 12/04/24 1:15 PM JOSEPH ALANIZ [facility] During your visit today, we recorded the following information about you: Temperature Pulse Respiration Blood pressure 98.9 degrees 93/minute 18/minute 124/76 Weight 106.2 kg Joseph Alaniz APRN.BATCH STILL OPERATOR 12/04/2024 1:34 PM Signed Subjective HPI Nontoxic-appearing [...] back: No (more content not included)... Normal [facility] MICHAEL PALMA ([id number]) 2 F [facility] Date Time Provider Department 11/12/24 [place] ULLOA During your visit today, we recorded the following information about you: Lida Elaine RN 11/12/2024 8:43 AM Signed Maternity prescription order form received from [email or web address] for breast pump and supplies and given [...] Status:Closed by RACHAEL ELENA on 11/19/24 Normal [facility] BACTERIAL VAGINOSIS NAATon 0 11-06-2024 Lactobacillus crispatus+gasseri+j ensenii + Gardnerella vaginalis + Atopobium vaginae rRNA LOTTIE+probe Ql (Vag fld) Not detected Normal Not detected [facility] Comment on above: Order Comment: Speci men Type: BLOOD SPECIMEN Ordering Facility: [facility] Address: [address] [place] [address] Performed By: #### 2 4323-8 #### [facility] CLIA [id number] [address] [place] [address] [place] Bacteria Ur Culton Bacteria identified Cx Nom (U) ORGANISM ID: 1 50,000-<100,000 CFU/ml Normal urogenital ck Normal [facility] Comment on above: Performed By: #### 6 30-4 ####[facility] LABCLIA [id number] [place] [address] [place] C. trachomatis+N. gonorrhoea e DNA LOTTIE+probe Ql (Unsp spec)on 11-06-2024 C. trachomatis rRNA LOTTIE+probe Ql (Unsp spec) Not detected Normal Not detected [facility] Comment on above: Order Comment: Speci men Type: BLOOD SPECIMEN [facility] Address: [address] [place] [address] Performed By: #### 2 4323-8 #### [facility] CLIA [id number] [address] [place] [address] [place] N. gonorrhoeae rRNA LOTTIE+probe Ql (Unsp spec) Not detected Normal Not detected [facility] Comment on above: Order Comment: Speci men Type: BLOOD SPECIMEN [facility] Address: [address] [place] [address] Performed By: #### 2 4323-8 #### [facility] CLIA [id number] [address] [place] [address] [place] ALIREZA/TRICHOMONAS NAATon 0 11-06-2024 C. glabrata RNA LOTTIE+probe Ql (Vag fld) Not detected Normal Not detected [facility] Comment on above: Order Comment: Speci men Type: SWABOrdering Facility: [facility] Address: [address] [place] [address] Performed By: #### C VTV ####[facility] LABCLIA [id number] [place] [address] [place] Alireza sp DNA LOTTIE+probe Ql (Vag fld) Detected Abnormal Not detected [facility] Comment on above: Order Comment: Speci men Type: SWABOrdering Facility: [facility] Address: [address] [place] [address] Result Comment: The Alireza species group target includes C. albicans, C. tropicalis, C. parapsilosis, and C. dubliniensis. Performed By: #### C VTV ####[facility] LABCLIA [id number] [place] [address] [place] T. vaginalis DNA LOTTIE+probe Ql (Unsp spec) Not detected Normal Not detected [facility] Comment on above: Order Comment: Speci men Type: SWABOrdering Facility: [facility] Address: [address] [place] [address] Performed By: #### C VTV ####[facility] LABROCHELLE [id number] [place] [address] [place] CNOVon 11-06-2024 CNOV Office Visit (UCWSTR ) -- MICHAEL PALMA ([id number]) 01 F [facility] Date Time Provider Department 11/06/24 5:00 PM IGNACIA RIBEIRO [facility] [facility] During your visit today, we recorded the following information about you: Temperature Pulse Respiration Blood pressure 98.4 degrees 88/minute 18/minute 118/78 Weight 107.5 kg Ignacia Ribeiro APRN.BATCH STILL OPERATOR 11/06/2024 5:37 PM Signed This note was [...] history is provided by the patient. No professor of languages was used. Vaginal Problem This is a [...] or poste (more content not included)... Normal [facility] UA DIP, URINE (POC)on 2024 BILIRUBIN UA (POCT) Small Abnormal Negative [facility] CLARITY UA (POCT) [facility] COLOR UA (POCT) Yellow [facility] GLUCOSE UA (POCT) Negative Negative mg/dL [facility] Hemoglobin Ql (U) Negative Negative [facility] Interpretation and review of laboratory results Abnormal [facility] KETONE UA (POCT) 15 mg/dL Abnormal Negative [facility] LEUKOCYTES UA (POCT) Trace Abnormal Negative [facility] NITRITE UA (POCT) Negative Negative [facility] PH UA (POCT) 5.5 4.5 - 8.0 [facility] Protein Ql (U) 30 mg/dL Abnormal Negative [facility] SPECIFIC GRAVITY UA (POCT) >=1.030 1.005 - 1.030 [facility] UROBILINOGEN UA (POCT) 0.2 Normal E.U./dL [facility] Location:[facility], [address] [place] [address], [place], [address] [facility] POINT OF CARE [facility] CBC W Auto Differential pane l (Bld)on 11-01-2024 Basophils (Bld) [#/Vol] 0.03 10*3/uL Normal <0.11 [facility] Comment on above: Order Comment: Speci men Type: BLOOD SPECIMENOrdering Facility: [facility] Address: [address] [place] [address] Performed By: #### 5 7021-8 ####[facility] ELENOWNCLIA [id number] [place] [address] [place] Basophils/100 WBC (Bld) 0.3 % Normal [facility] Comment on above: Order Comment: Speci men Type: BLOOD SPECIMENOrdering Facility: [facility] Address: [address] [place] [address] Performed By: #### 5 7021-8 ####[facility] HOSPITALLIA [id number] [place] [address] [place] Differential cell count method Nom (Bld) Auto Normal [facility] Comment on above: Order Comment: Speci men Type: BLOOD SPECIMENOrdering Facility: [facility] Address: [address] [place] [address] Performed By: #### 5 7021-8 ####[facility] HOSPITALLIA [id number] [place] [address] [place] Eosinophils (Bld) [#/Vol] 0.09 10*3/uL Normal <0.46 [facility] Comment on above: Order Comment: Speci men Type: BLOOD SPECIMENOrdering Facility: [facility] Address: [address] [place] [address] Performed By: #### 5 7021-8 ####[facility] NAPLESWNCLIA [id number] [place] [address] [place] Eosinophils/100 WBC (Bld) 0.9 % Normal [facility] Comment on above: Order Comment: Speci men Type: BLOOD SPECIMENOrdering Facility: [facility] Address: [address] [place] [address] Performed By: #### 5 7021-8 ####[facility] HOSPITALNCLIA [id number] [place] [address] [place] Erythrocyte distribution width (RBC) [Ratio] 14.1 % Normal 11.5-15.0 [facility] Comment on above: Order Comment: Speci men Type: BLOOD SPECIMENOrdering Facility: [facility] Address: [address] [place] [address] Performed By: #### 5 7021-8 ####[facility] HOSPITALNCJOSE ROBERTOA [id number] [place] [address] [place] Hematocrit (Bld) [Volume fraction] 42.4 % Normal 36.0-46.0 [facility] Comment on above: Order Comment: Speci men Type: BLOOD SPECIMENOrdering Facility: [facility] Address: [address] [place] [address] Performed By: #### 5 7021-8 ####[facility] HOSPITALNCA [id number] [place] [address] [place] Hemoglobin (Bld) [Mass/Vol] 14.2 g/dL Normal 11.5-15.5 [facility] Comment on above: Order Comment: Speci men Type: BLOOD SPECIMENOrdering Facility: [facility] Address: [address] [place] [address] Performed By: #### 5 7021-8 ####[facility] HOSPITALNCLIA [id number] [place] [address] [place] Immature granulocytes (Bld) [#/Vol] 0.04 10*3/uL Normal <0.10 [facility] Comment on above: Order Comment: Speci men Type: BLOOD SPECIMENOrdering Facility: [facility] Address: [address] [place] [address] Performed By: #### 5 7021-8 ####[facility] HOSPITALNCLIA [id number] [place] [address] [place] Immature granulocytes/100 WBC (Bld) 0.4 % Normal [facility] Comment on above: Order Comment: Speci men Type: BLOOD SPECIMENOrdering Facility: [facility] Address: [address] [place] [address] Performed By: #### 5 7021-8 ####[facility] ANNCBRAYAN [id number] [place] [address] [place] Lymphocytes (Bld) [#/Vol] 2.37 10*3/uL Normal 1.00-4.00 [facility] Comment on above: Order Comment: Speci men Type: BLOOD SPECIMENOrdering Facility: [facility] Address: [address] [place] [address] Performed By: #### 5 7021-8 ####[facility] HOSPITALDAVID [id number] [place] [address] [place] Lymphocytes/100 WBC (Bld) 22.9 % Normal [facility] Comment on above: Order Comment: Speci men Type: BLOOD SPECIMENOrdering Facility: [facility] Address: [address] [place] [address] Performed By: #### 5 7021-8 ####[facility] HOSPITALDAVID [id number] [place] [address] [place] MCH (RBC) [Entitic mass] 27.4 pg Normal 26.0-34.0 [facility] Comment on above: Order Comment: Speci men Type: BLOOD SPECIMENOrdering Facility: [facility] Address: [address] [place] [address] Performed By: #### 5 7021-8 ####[facility] HOSPITALNCLIA [id number] [place] [address] [place] MCHC (RBC) [Mass/Vol] 33.5 g/dL Normal 30.5-36.0 [facility] Comment on above: Order Comment: Speci men Type: BLOOD SPECIMENOrdering Facility: [facility] Address: [address] [place] [address] Performed By: #### 5 7021-8 ####[facility] ELENOMAXTONNCLIA [id number] [place] [address] [place] MCV (RBC) [Entitic vol] 81.9 fL Normal 80.0-100.0 [facility] Comment on above: Order Comment: Speci men Type: BLOOD SPECIMENOrdering Facility: [facility] Address: [address] [place] [address] Performed By: #### 5 7021-8 ####[facility] HOSPITALLIA [id number] [place] [address] [place] Monocytes (Bld) [#/Vol] 0.55 10*3/uL Normal <0.87 [facility] Comment on above: Order Comment: Speci men Type: BLOOD SPECIMENOrdering Facility: [facility] Address: [address] [place] [address] Performed By: #### 5 7021-8 ####[facility]A [id number] [place] [address] [place] Monocytes/100 WBC (Bld) 5.3 % Normal [facility] Comment on above: Order Comment: Speci men Type: BLOOD SPECIMENOrdering Facility: [facility] Address: [address] [place] [address] Performed By: #### 5 7021-8 ####[facility] HOSPITALLIA [id number] [place] [address] [place] Neutrophils (Bld) [#/Vol] 7.29 10*3/uL Normal 1.45-7.50 [facility] Comment on above: Order Comment: Speci men Type: BLOOD SPECIMENOrdering Facility: [facility] Address: [address] [place] [address] Performed By: #### 5 7021-8 ####[facility] HOSPITALLIA [id number] [place] [address] [place] Neutrophils/100 WBC (Bld) 70.2 % Normal [facility] Comment on above: Order Comment: Speci men Type: BLOOD SPECIMENOrdering Facility: [facility] Address: [address] [place] [address] Performed By: #### 5 7021-8 ####[facility] HOSPITALNCA [id number] [place] [address] [place] Nucleated RBC (Bld) [#/Vol] 10*3/uL Normal <0.01 [facility] Comment on above: Order Comment: Speci men Type: BLOOD SPECIMENOrdering Facility: [facility] Address: [address] [place] [address] Performed By: #### 5 7021-8 ####[facility] HOSPITALNCFILLMORE [facility] [id number] [place] [address] [place] Nucleated RBC/100 WBC (Bld) [Ratio] 0.0 /100 WBC Normal [facility] Comment on above: Order Comment: Speci men Type: BLOOD SPECIMENOrdering Facility: [facility] Address: [address] [place] [address] Performed By: #### 5 7021-8 ####[facility] HOSPITALNCLIA [id number] [place] [address] [place] Platelet mean volume (Bld) [Entitic vol] 9.4 fL Normal 9.0-12.7 [facility] Comment on above: Order Comment: Speci men Type: BLOOD SPECIMENOrdering Facility: [facility] Address: [address] [place] [address] Performed By: #### 5 7021-8 ####[facility] HOSPITALNCLIA [id number] [place] [address] [place] Platelets (Bld) [#/Vol] 295 10*3/uL Normal 150-400 [facility] Comment on above: Order Comment: Speci men Type: BLOOD SPECIMENOrdering Facility: [facility] Address: [address] [place] [address] Performed By: #### 5 7021-8 ####[facility] HOSPITALNCLIA [id number] [place] [address] [place] RBC (Bld) [#/Vol] 5.18 10*6/uL Normal 3.90-5.20 [facility] Comment on above: Order Comment: Speci men Type: BLOOD SPECIMENOrdering Facility: [facility] Address: [address] [place] [address] Performed By: #### 5 7021-8 ####[facility] HOSPITALRaman [id number] [place] [address] [place] WBC (Bld) [#/Vol] 10.37 10*3/uL Normal 3.70-11.00 [facility] Comment on above: Order Comment: Speci men Type: BLOOD SPECIMENOrdering Facility: [facility] Address: [address] [place] [address] Performed By: #### 5 7021-8 ####[facility] HOSPITALNCLIA [id number] [place] [address] [place] Comprehensive metabolic 2000 panelon 11-01-2024 Albumin [Mass/Vol] 4.6 g/dL Normal 3.9-4.9 [facility] Comment on above: Order Comment: Speci men Type: BLOOD SPECIMEN [facility] Address: [address] [place] [address] Performed By: #### 2 4323-8 #### [facility] CLIA [id number] [address] [place] [address] [place] ALP [Catalytic activity/Vol] 73 U/L Normal 34-123 [facility] Comment on above: Order Comment: Speci men Type: BLOOD SPECIMEN [facility] Address: [address] [place] [address] Performed By: #### 2 4323-8 #### [facility] [place] CLIA [id number] [address] [place] [address] [facility] ALT [Catalytic activity/Vol] 16 U/L Normal 7-38 [facility] Comment on above: Order Comment: Speci men Type: BLOOD SPECIMEN [facility] Address: [address] [place] [address] Performed By: #### 2 4323-8 #### [facility] CLIA [id number] [address] [place] [address] [place] Anion gap [Moles/Vol] 12 mmol/L Normal 8-15 [facility] Comment on above: Order Comment: Speci men Type: BLOOD SPECIMEN [facility] Address: [address] [place] [address] Performed By: #### 2 4323-8 #### [facility] CLIA [id number] [address] [place] [address] [place] AST [Catalytic activity/Vol] 16 U/L Normal 13-35 [facility] Comment on above: Order Comment: Speci men Type: BLOOD SPECIMEN [facility] Address: [address] [place] [address] Performed By: #### 2 4323-8 #### [facility] CLIA [id number] [address] [place] [address] [place] Bilirubin [Mass/Vol] 0.5 mg/dL Normal 0.2-1.3 [facility] Comment on above: Order Comment: Speci men Type: BLOOD SPECIMEN [facility] Address: [address] [place] [address] Performed By: #### 2 4323-8 #### [facility] CLIA [id number] [address] [place] [address] [place] Calcium [Mass/Vol] 9.7 mg/dL Normal 8.5-10.2 [facility] Comment on above: Order Comment: Speci men Type: BLOOD SPECIMEN [facility] Address: [address] [place] [address] Performed By: #### 2 4323-8 #### [facility] CLIA [id number] [address] [place] [address] [place] Chloride [Moles/Vol] 101 mmol/L Normal 98-107 [facility] Comment on above: Order Comment: Speci men Type: BLOOD SPECIMEN [facility] Address: [address] [place] [address] Performed By: #### 2 4323-8 #### [facility] CLIA [id number] [address] [place] [address] [place] CO2 [Moles/Vol] 22 mmol/L Normal 22-30 [facility] Comment on above: Order Comment: Speci men Type: BLOOD SPECIMEN [facility] Address: [address] [place] [address] Performed By: #### 2 4323-8 #### [facility] CLIA [id number] [address] [place] [address] [place] Creatinine [Mass/Vol] 0.60 mg/dL Normal 0.58-0.96 [facility] Comment on above: Order Comment: Speci men Type: BLOOD SPECIMEN [facility] Address: [address] [place] [address] Performed By: #### 2 4323-8 #### [facility] CLIA [id number] [address] [place] [address] [place] Creatinine and Glomerular filtration rate.predicted panel (S/P/Bld) 130 mL/min/1.73m??? Normal >=60 [facility] Comment on above: Order Comment: Speci men Type: BLOOD SPECIMEN [facility] Address: [address] [place] [address] Result Comment: Marbella mated Glomerular Filtration Rate [...] GFR. Performed By: #### 2 4323-8 #### [facility]ACOLAIA [id number] [address] [place] [address] [place] Glucose [Mass/Vol] 100 mg/dL High 74-99 [facility] Comment on above: Order Comment: Cheryl raza Type: BLOOD SPECIMEN [facility] Address: [address] [place] [address] Result Comment: The [place] Diabetes Association (ADA) provides guidance for cutoff [...] Standards of Medical Care in Diabetes 2016, [place] Diabetes Association. Diabetes Care. 2016.39(Suppl 1). Performed By: #### 2 4323-8 #### [facility] PENSACOLAIA [id number] [address] [place] [address] [place] Potassium [Moles/Vol] 3.6 mmol/L Low 3.7-5.1 [facility] Comment on above: Order Comment: Cheryl raza Type: BLOOD SPECIMEN [facility] Address: [address] [place] [id number] Performed By: #### 2 4323-8 #### [facility] CLIA [id number] [address] [place] [address] [place] Protein [Mass/Vol] 7.6 g/dL Normal 6.3-8.0 [facility] Comment on above: Order Comment: Speci men Type: BLOOD SPECIMEN [facility] Address: [address] [place] [address] Performed By: #### 2 4323-8 #### [facility] CLIA [id number] [address] [place] [address] [place] Sodium [Moles/Vol] 135 mmol/L Low 136-144 [facility] Comment on above: Order Comment: Speci men Type: BLOOD SPECIMEN [facility] Address: [address] [place] [address] Performed By: #### 2 4323-8 #### [facility] CLIA [id number] [address] [place] [address] [place] Urea nitrogen [Mass/Vol] 7 mg/dL Normal 7-21 [facility] Comment on above: Order Comment: Speci men Type: BLOOD SPECIMEN [facility] Address: [address] [place] [address] Performed By: #### 2 4323-8 #### [facility] CLIA [id number] [address] [place] [address] [place] nuchal translucency me asured by USon 11-01-2024 Indication First trimester anatomic survey Maternal obesity, BMI >35 Impression The patient is referred for a first trimester anatomy scan including nuchal translucency measurement as clinically indicated. - Single, live, intrauterine . - Croswell rump length measurement is consistent with the [...] view: normal 4-chamber view with color: normal 3-blpxfn-hhrheyq view: normal Abdominal cord insertion: normal Stomach: [...] Read By: Torri Pastor M.D. MATERNAL MEDICINE [facility] Radiology Study observation (narrative) [facility] HBV surface Ag Ser Qlon 10-19 HBV surface Ag Ql (S) Negative Normal Negative [facility] Comment on above: Order Comment: Speci men Type: BLOOD SPECIMENOrdering Facility: [facility] Address: [address] [place] [address] Performed By: #### 5 195-3, 52280-8, 91352-0 ####[facility] LABCLIA [id number] [place] [address] [place] HCV Ab Ser Qlon 11-01-2024 HCV Ab Ql (S) Non-Reactive Normal Nonreactive [facility] Comment on above: Order Comment: Speci men Type: BLOOD SPECIMENOrdering Facility: [facility] Address: [address] [place] [address] Result Comment: The result suggests no evidence of active infection with Hepatitis C virus. Should recent infection be suspected, repeat testing may be considered 4-6 weeks after this draw. Performed By: #### 1 6128-1 ####[facility] LABORATORYCLIA [id number] [place] [address] [place] HIV 1+2 Ab IA Qlon HIV 1 and 2 Ab IA.rapid Nom (S/P/Bld) Normal [facility] Comment on above: Order Comment: Speci men Type: BLOOD SPECIMENOrdering Facility: [facility] Address: [address] [place] [address] Result Comment: Test not indicated. Performed By: #### 5 195-3, 04361-0, 33373-4 ####[facility] LABCLIA [id number] [place] [address] [place] HIV 1+2 Ab+HIV1 p24 Ag IA Ql Non-Reactive Normal Nonreactive [facility] Comment on above: Order Comment: Speci men Type: BLOOD SPECIMENOrdering Facility: [facility] Address: [address] [place] [address] Performed By: #### 5 195-3, 72328-0, 98151-6 ####[facility] LABCLIA [id number] [place] [address] [place] HIV immunoassay testing algorithm interpretation (S/P/Bld) [Interp] Normal [facility] Comment on above: Order Comment: Speci men Type: BLOOD SPECIMENOrdering Facility: [facility] Address: [address] [place] [address] Result Comment: No e vidence of HIV-1 or HIV-2 infection. Should recent infection be suspected, repeat testing may be considered 2-3 weeks after this draw. [place] Rev. Code 3701.243(E): This information has been [...] or diagnoses. Performed By: #### 5 195-3, 21320-3, 18583-8 ####[facility] LABCLIA [id number] [place] [address] [place] HbA1c (Bld)on 11-01-2024 Average glucose Estimated from glycated hemoglobin (Bld) [Mass/Vol] 94 mg/dL Normal [facility] Comment on above: Order Comment: Efrai luz marina Type: BLOOD SPECIMENOrdering Facility: [facility] Address: [address] [place] [address] Result Comment: eAG: (Estimated average glucose) is a calculated value from HgbA1c and is patient intake representative of the average blood glucose level in the last 2-3 month period. Performed By: #### 5 5454-3 ####[facility] LABCLIA [id number] [place] [address] [place] HbA1c (Bld) [Mass fraction] 4.9 % Normal 4.3-5.6 [facility] Comment on above: Order Comment: Cheryl raza Type: BLOOD SPECIMENOrdering Facility: [facility] Address: [address] [place] [address] Result Comment: [place] Diabetes Association guidelines indicate that patients with HgbA1c in the range 5.7-6.4% are at increased risk for development of diabetes, and intervention by lifestyle modification may be beneficial. HgbA1c greater or equal to 6.5% is considered diagnostic of diabetes. Performed By: #### 5 5454-3 ####[facility] LABCLIA [id number] REDWO[employer] LLCJoao [facility]AVIORAL HEALTHAbiel [id number] [place] [address] [place] [id number] PLUSon 11-01-2024 Cell-free DNA./Cell-free DNA.total Dosage of chromosome-specific cfDNA (cfDNA) [Molar fraction] 14% Normal [facility] Comment on above: Order Comment: Speci men Type: BLOOD SPECIMEN [facility] Address: [address] [place] [address] Performed By: #### 2 4323-8 #### [facility] [id number] [address] [place] [address] [place] Chr 13+18+21+X+Y aneuploidy Dosage of chromosome-specific cfDNA Ql (cfDNA) Negative Normal [facility] Comment on above: Order Comment: Speci men Type: BLOOD SPECIMEN [facility] Address: [address] [place] [address] Performed By: #### 2 4323-8 #### [facility] [id number] [address] [place] [address] [place] Chr 21 trisomy Dosage of chromosome-specific cfDNA Ql (cfDNA) Negative Normal [facility] Comment on above: Order Comment: Speci men Type: BLOOD SPECIMEN [facility] Address: [address] [place] [address] Performed By: #### 2 4323-8 #### [facility] [id number] [address] [place] [address] [place] Chr X and Y aneuploidy risk Sequencing Ql (cfDNA) [Interp] Not detected Normal [facility] Comment on above: Order Comment: Speci men Type: BLOOD SPECIMEN [facility] Address: [address] [place] [address] Result Comment: Not Detected Not Detected Performed By: #### 2 4323-8 #### [facility] CLIA [id number] [address] [place] [address] [place] Citation Bhupinder (Reference lab test) Comment Normal [facility] Comment on above: Order Comment: Speci men Type: BLOOD SPECIMEN [facility] Address: [address] [place] [address] Result Comment: 1. P eva BOJORQUEZ, et al. Leonila Med. 2012;14(3):296-305. 2. Sharonda KLEIN, et al. Prenat Diag. 2013;33(6):591-597. 3. Gregorio C, et al. Clin Chem. 2015 Apr;61(4):608-616. 4. Brandi BOJORQUEZ, et al. Leonila Med. 2011;13(11):913-920. 5. ACOG/SMFM Practice Bulletin No. 226, Jun 2020. Performed By: #### 2 4323-8 #### [facility] CLIA [id number] [address] [place] [address] [place] Gestational age Estimated from conception date Block Normal [facility] Comment on above: Order Comment: Speci men Type: BLOOD SPECIMEN [facility] Address: [address] [place] [address] Performed By: #### 2 4323-8 #### [facility] CLIA [id number] [address] [place] [address] [place] GESTATIONALAGE AGE > OR = 9W Yes Normal [facility] Comment on above: Order Comment: Speci men Type: BLOOD SPECIMEN Ordering Facility: [facility] Address: [address] [place] [address] Performed By: #### 2 4323-8 #### [facility] CLIA [id number] [address] [place] [address] OF [place] Laboratory comment Bhupinder (Report) Comment Normal [facility] Comment on above: Order Comment: Cheryl raza Type: BLOOD SPECIMEN Ordering Facility: [facility] Address: [address] [place] [address] Result Comment: The MaterniT(R) 21 PLUS laboratory-developed test (LDT) analyzes circulating cell-free DNA from a maternal blood sample. This test is used for screening purposes and not diagnostic. Clinical correlation is recommended. Validation data on twin pregnancies is limited and the ability of this test to detect aneuploidy in higher multiple gestations has not yet been validated. Performed By: #### 2 4323-8 #### [facility] CLIA [id number] [address] [place] [address] [facility] director educational radio name Nom (Provider) Comment Normal [facility] Comment on above: Order Comment: Cheryl raza Type: BLOOD SPECIMEN Ordering Facility: [facility] Address: [address] [place] [address] Result Comment: This specimen showed an expected representation of chromosome 21, 18 and 13 material. Clinical correlation is suggested. Comment Gab Strauss MD, PhD, Director, [employer] Performed By: #### 2 4323-8 #### [facility] CLIA [id number] [address] [place] [address] LIMITATIONS OF THE TEST Comment Normal [facility] Comment on above: Order Comment: Cheryl raza Type: BLOOD SPECIMEN Ordering Facility: [facility] Address: [address] [place] [address] Result Comment: Lin joens the results of these tests are highly [...] Fragmin(R)). Performed By: #### 2 4323-8 #### [facility] [id number] [address] [place] [address] [place] Monosomy X risk Dosage of chromosome-specific cfDNA Ql (Plasma cell-free+WBC DNA) [Interp] Not detected Normal [facility] Comment on above: Order Comment: Speci men Type: BLOOD SPECIMEN Ordering Facility: [facility] Address: [address] [place] [address] Performed By: #### 2 4323-8 #### [facility] CLIA [id number] [address] [place] [address] OF [place] NEGATIVE PREDICTIVE VALUE Note Normal [facility] Comment on above: Order Comment: Cheryl raza Type: BLOOD SPECIMEN Ordering Facility: [facility] Address: [address] [place] [address] Result Comment: The Negative Predictive Value (NPV) for trisomy 21, 18, and 13 is greater than 99%. The NPV for SCA and ESS cannot be calculated as SCA and ESS are only reported when an abnormality is detected. Performed By: #### 2 4323-8 #### [facility] [id number] [address] PERFORMANCE CHARACTERISTICS Note Normal [facility] Comment on above: Order Comment: Cheryl raza Type: BLOOD SPECIMEN Ordering Facility: [facility] Address: [address] [place] [address] Result Comment: ! Sex ! Accuracy: 99.4% [...] ! ! ! * As reported in [facility] database nstd37 [https://www.ncbi.nlm.nih.gov/dbvar/studies/nstd37/ ] # Estimated Sensitivity. Sensitivity estimated across the observed size distribution of each syndrome [per [facility] database nstd37] and across the range of fractions observed in routine clinical NIPT. Actual sensitivity can also be influenced by other factors such as the size of the event, total sequence counts, amplification bias, or sequence bias. ## Block gestation only. Performed By: #### 2 4323-8 #### [facility] [id number] [address] [place] [address] [place] POSITIVE PREDICTIVE VALUE N/A Normal [facility] Comment on above: Order Comment: Cheryl raza Type: BLOOD SPECIMEN Ordering Facility: [facility] Address: [address] [place] [address] Performed By: #### 2 4323-8 #### [facility] [id number] [address] [place] [address] [place] Reference Lab Test Method Comment Normal [facility] Comment on above: Order Comment: Cheryl raza Type: BLOOD SPECIMEN Ordering Facility: [facility] Address: [address] [place] [address] Result Comment: See Notes Circulating cell-free DNA [...] 22. Performed By: #### 2 4323-8 #### [facility] CLIA [id number] [address] [place] [address] [place] Service comment (Unsp spec) [Interp] Comment Normal [facility] Comment on above: Order Comment: Speci men Type: BLOOD SPECIMEN Ordering Facility: [facility] Address: [address] [place] [address] Result Comment: See Notes [employer] is a subsidiary of [employer], using the brand [employer]. This test was developed and its performance characteristics determined by [employer]. It has not been cleared or approved by the Food and Drug Administration. This laboratory is certified under the Clinical Laboratory Improvement Amendments (CLIA) as qualified to perform high complexity clinical laboratory testing and accredited by the College of [place] [employer] (CAP). If there is future clinical need for adding MaterniT GENOME testing, this specimen will be available until term. [facility] samples will not be retained beyond 60 days. [facility] patients will have to send a new sample for re-sequencing ([facility] Test Code: 559014). Performed By: #### 2 4323-8 #### [facility] CLIA [id number] [address] [place] [address] [place] Sex Dosage of chromosome-specific cfDNA Nom (cfDNA) Comment Normal [facility] Comment on above: Order Comment: Speci men Type: BLOOD SPECIMEN Ordering Facility: [facility] Address: [address] [place] [address] Result Comment: Cons istent with Male Performed By: #### 2 4323-8 #### [facility] CLIA [id number] [address] [place] [address] [place] Test performance information Bhupinder (Unsp spec) Comment Normal [facility] Comment on above: Order Comment: Speci men Type: BLOOD SPECIMEN Ordering Facility: [facility] Address: [address] [place] [address] Result Comment: The performance characteristics of the MaterniT(R) 21 PLUS laboratory-developed test (LDT) have been determined in a clinical validation study with women at increased risk for chromosomal aneuploidy.[1-4] Performed By: #### 2 4323-8 #### [facility] [id number] [address] [place] [address] [place] Trisomy 13 risk Dosage of chromosome-specific cfDNA Ql (cfDNA) [Interp] Negative Normal [facility] Comment on above: Order Comment: Speci men Type: BLOOD SPECIMEN Ordering Facility: [facility] Address: [address] [place] [address] Performed By: #### 2 4323-8 #### [facility] [id number] [address] [place] [address] [place] Trisomy 18 risk Dosage of chromosome-specific cfDNA Ql (Plasma cell-free+WBC DNA) [Interp] Negative Normal [facility] Comment on above: Order Comment: Speci men Type: BLOOD SPECIMEN Ordering Facility: [facility] Address: [address] [place], [place] [address] Performed By: #### 2 4323-8 #### [facility] CLIA [id number] [address] [place] [address] [place] Prot/Creat Uron 11-01-2024 Protein/Creatinine (U) [Mass ratio] 0.07 mg/mg Normal <0.15 [facility] Comment on above: Order Comment: Speci men Type: URINE SPECIMENOrdering Facility: [facility] Address: [address] [place] [address] Result Comment: Adul t Proteinuria Categories: <0.15 mg/mg is considered normal to mildly increased 0.15 - 0.50 mg/mg is considered moderately increased >0.50 mg/mg is considered severely increased KDIGO. (2013). KDIGO 2012 Clinical Practice Guideline for the Evaluation and Management of Chronic Kidney Disease. Official Journal of the International Society of Nephrology, 3(1), 1-150. Performed By: #### 2 890-2 ####[facility] [facility] TechnologyCLIA [id number] [place] [address] [place] Protein/Creatinine (U) [Mass ratio]on 11-01-2024 Creatinine (U) [Mass/Vol] 232.4 mg/dL Normal 42.2-237.9 [facility] Comment on above: Order Comment: Speci men Type: URINE SPECIMENOrdering Facility: [facility] Address: [address] [place] [address] Performed By: #### 2 890-2 ####[facility] TechnologyCLIA [id number] [place] [address] [place] Protein (U) [Mass/Vol] 17 mg/dL Normal 0-20 [facility] Comment on above: Order Comment: Speci luz marina Type: URINE SPECIMENOrdering Facility: [facility] Address: [address] [place] [address] Performed By: #### 2 890-2 ####[facility] LABORATORYCLIA [id number] [place] [id number] [place] RUBELLA IGG ANTIBODYon 11-01 RUBELLA IGG AB, QUAL Positive Normal Positive [facility] Comment on above: Order Comment: Efrai men Type: BLOOD SPECIMENOrdering Facility: [facility] Address: [address] [place] [address] Result Comment: The result suggests recent or past exposure to Rubella virus or history of Rubella vaccination. Positive result may also be seen due to presence of passively-transferred antibodies. Please correlate with patient's history. The following results were obtained with the Elecsys Rubella IgG assay. Results from assays of other manufacturers cannot be used interchangeably. Performed By: #### R UBIGG ####[facility] LABORATORYCLIA [id number] [place] [address] [place] Reagin and Treponema pallidu m IgG and IgM [Interp]on 11-01-2024 T. pallidum IgG+IgM IA Ql (S) Non-Reactive Normal Nonreactive [facility] Comment on above: Order Comment: Speci men Type: BLOOD SPECIMENOrdering Facility: [facility] Address: [address] [place] [address] Performed By: #### 5 195-3, 49353-2, 59045-8 ####[facility] LABCLIA [id number] [place] [address] [place] Reagin+T pallidum IgG+IgM Se rPl-Impon 11-01-2024 Reagin and Treponema pallidum IgG and IgM [Interp] Cannot exclude recent Treponemal infection if specimen collected within 7-10 days after appearance of suspect lesions or 2-3 weeks after an exposure. Clinical correlation is required. Normal [facility] Comment on above: Order Comment: Cheryl raza Type: BLOOD SPECIMENOrdering Facility: [facility] Address: [address] [place] [address] Performed By: #### 5 195-3, 10257-0, 11516-6 ####[facility] LABCLIA [id number] [place] [id number] [place] TSH SerPl-aCncon 11-01-2024 TSH Qn 2.000 m[IU]/L Normal 0.270-4.200 [facility] Comment on above: Order Comment: Cheryl raza Type: BLOOD SPECIMENOrdering Facility: [facility] Address: [address] [place] [address] Result Comment: If t he patient is , TSH reference range varies by gestational period: First Trimester (weeks 9-12): 0.180-2.990 mIU/L Second Trimester: 0.110-3.980 mIU/L Third Trimester: 0.480-4.710 mIU/L Cornelio Mcintosh et al. A Practical Approach for the Verifications and Determination of Site- and Trimester-Specific Reference Intervals for Thyroid Function tests in . Thyroid, 2019:29:3:412-420. Dorian Jones, et al. 2017 Guidelines of the [place] Thyroid Association for the Diagnosis and Management of Thyroid Disease during and the . Thyroid, 2017:27:3:315-389. Performed By: #### 3 016-3 ####[facility] LABORATORYCLIA [id number] [place] [address] [facility] TYPE + SCREEN PRENATALon ABO A Normal [facility] Comment on above: Order Comment: Speci men Type: BLOOD SPECIMENOrdering Facility: [facility] Address: [address] [place] [address] Performed By: #### T SPN ####[facility] BANKCLIA [id number] [place] [address] [place] Rh Nom (Bld) Positive Normal [facility] Comment on above: Order Comment: Cheryl raza Type: BLOOD SPECIMENOrdering Facility: [facility] Address: [address] [place] [address] Performed By: #### T SPN ####[facility] BLOOD BANKCLIA [id number] [address] OF [place] TYPE AND SCREEN EXPIRATION 11/04/2024 23:59 Normal [facility] Comment on above: Order Comment: Cheryl raza Type: BLOOD SPECIMENOrdering Facility: [facility] Address: [address] [place] [address] Performed By: #### T SPN ####[facility] BLOOD BANKCLIA [id number] [address] OF [place] CNPNon 09-26-2024 CNPN Telephone (Nutraspace) -- MICHAEL PALMA ([id number]) 2 F UPA Date Time Provider Department 09/26/24 GOPI GODDARD During your visit today, we recorded the following information about you: Gopi Goddard RN 09/26/2024 2:11 PM Signed 1st risk assessment form submitted 09/26/24. Gopi Goddard RN Allergies As of Date: 09/26/2024 (No Known Allergies) Date Reviewed: 09/25/2024 Reviewed by: Madi Moss APRN.BATCH STILL OPERATOR - Fully Assessed Reason for Visit: PRAF [...] Status:Closed by GOPI GODDARD on 09/26/24 Normal [facility] Bacteria Ur Culton Bacteria identified Cx Nom (U) ORGANISM ID: 1 10,000 -<50,000 CFU/ml Normal urogenital ck Normal [facility] Comment on above: Performed By: #### 6 30-4 ####[facility] LABCLIA [id number] [place] [address] [place] C. trachomatis+N. gonorrhoea e DNA LOTTIE+probe Ql (Unsp spec)on 09-25-2024 C. trachomatis rRNA LOTTIE+probe Ql (Unsp spec) Not detected Normal Not detected [facility] Comment on above: Order Comment: Speci men Type: SWABOrdering Facility: [facility] Address: [address] [place] [address] Performed By: #### 3 6902-5 ####[facility] LABCLIA [id number] [place] [address] [place] N. gonorrhoeae rRNA LOTTIE+probe Ql (Unsp spec) Not detected Normal Not detected [facility] Comment on above: Order Comment: Speci men Type: SWABOrdering Facility: [facility] Address: [address] [place] [address] Performed By: #### 3 6902-5 ####[facility] LABCLIA [id number] [place] [address] [facility] POC SCALE MECHANIC ULTRASOUNDon 09-25-19 25 Indication Viability; confirm cardiac [...] Read By: Madi Moss NP MATERNAL MEDICINE [facility] Radiology Study observation (narrative) [facility] CBC W/Diff, Automatedon Absolute Lymph 2.12 X10 3/uL Normal 0.83-4.51 [facility] Comment on above: Performed By: #### L 500.4050, L100.0100, L700.6800 #### [facility] [address] [place], [address] Absolute Neut 12.9 X10 3/uL High 2.0-7.7 [facility] Comment on above: Performed By: #### L 500.4050, L100.0100, L700.6800 #### [facility] [address] [place], [address] Basophils/100 WBC (Bld) 0.4 % Normal 0-1 [facility] Comment on above: Performed By: #### L 500.4050, L100.0100, L700.6800 #### [facility] [address] [place], [address] Eosinophils/100 WBC (Bld) 0.0 % Normal 0-5 [facility] Comment on above: Performed By: #### L 500.4050, L100.0100, L700.6800 #### [facility] [address] [place], [address] Erythrocyte distribution width (RBC) [Ratio] 13.6 % Normal 11.6-14.6 [facility] Comment on above: Performed By: #### L 500.4050, L100.0100, L700.6800 #### [facility] [address] [place], [address] Hematocrit (Bld) [Volume fraction] 45.0 % Normal 37-47 [facility] Comment on above: Performed By: #### L 500.4050, L100.0100, L700.6800 #### [facility] [address] [place], [address] Hemoglobin (Bld) [Mass/Vol] 14.9 g/dL Normal 12.0-15.0 [facility] Comment on above: Performed By: #### L 500.4050, L100.0100, L700.6800 #### [facility] [address] [place], [address] IG% 0.400 Normal 0.0-0.9 [facility] Comment on above: Result Comment: IG% - Immature Granulocytes (promyelocytes, myelocytes and metamyelocytes) > 1% indicates that a LEFT SHIFT is Present. Performed By: #### L 500.4050, L100.0100, L700.6800 #### [facility] [address] [place], [address] Lymphocytes/100 WBC (Bld) 13.5 % Low 19-41 [facility] Comment on above: Performed By: #### L 500.4050, L100.0100, L700.6800 #### [facility] [address] [place], [address] MCH (RBC) [Entitic mass] 27.4 pg Normal 27.0-32.0 [facility] Comment on above: Performed By: #### L 500.4050, L100.0100, L700.6800 #### [facility] [address] [place], [address] MCHC (RBC) [Mass/Vol] 33.1 g/dL Normal 32-36 [facility] Comment on above: Performed By: #### L 500.4050, L100.0100, L700.6800 #### [facility] [address] [place], [address] MCV (RBC) [Entitic vol] 82.7 fL Normal 81-99 [facility] Comment on above: Performed By: #### L 500.4050, L100.0100, L700.6800 #### [facility] [address] [place], [address] Monocytes/100 WBC (Bld) 3.7 % Normal 0-10 [facility] Comment on above: Performed By: #### L 500.4050, L100.0100, L700.6800 #### [facility] [address] [place], [address] Neutrophils/100 WBC (Bld) 82.0 % High 47-70 [facility] Comment on above: Performed By: #### L 500.4050, L100.0100, L700.6800 #### [facility] [address] [place], [address] Nucleated RBC (Bld) [#/Vol] 0 10*3/uL Normal 0-5 [facility] Comment on above: Performed By: #### L 500.4050, L100.0100, L700.6800 #### [facility] [address] [place], [address] Platelet mean volume (Bld) [Entitic vol] 9.4 fL Normal 6.2-12.0 [facility] Comment on above: Performed By: #### L 500.4050, L100.0100, L700.6800 #### [facility] [address] [place], [address] Platelets (Bld) [#/Vol] 419 10*3/uL Normal 150-450 [facility] Comment on above: Performed By: #### L 500.4050, L100.0100, L700.6800 #### [facility] [address] [place], [address] RBC (Bld) [#/Vol] 5.44 10*6/uL High 4.2-5.4 [facility] Comment on above: Performed By: #### L 500.4050, L100.0100, L700.6800 #### [facility] [address] [place], [address] RDW SD 40.3 fl Normal 35.1-43.9 [facility] Comment on above: Performed By: #### L 500.4050, L100.0100, L700.6800 #### [facility] [address] [place], [address] WBC (Bld) [#/Vol] 15.7 10*3/uL High 4.4-11.0 [facility] Comment on above: Performed By: #### L 500.4050, L100.0100, L700.6800 #### [facility] [address] [place], [address] CNPNon 01-07-2025 XU Telephone (OBGYWM) -- LOUIEMICHAEL Hernández ([id number]) 01 F UPA Date Time Provider Department [...] MARILEE DE LA TORRE on 09/24/24 Normal [facility] Metabolic Prof joey 09-24-2024 Albumin [Mass/Vol] 4.1 g/dL Normal 3.2-5.0 [facility] Comment on above: Performed By: #### L 500.4050, L100.0100, L700.6800 #### [facility] [address] [place], [address] Albumin/Globulin [Mass ratio] 1.0 {ratio} Normal 0.9-2.4 [facility] Comment on above: Performed By: #### L 500.4050, L100.0100, L700.6800 #### [facility] [address] [place], [address] ALK P 86 U/L Normal 45-117 [facility] Comment on above: Performed By: #### L 500.4050, L100.0100, L700.6800 #### [facility] [address] [place], [address] ALT [Catalytic activity/Vol] 41 U/L Normal 13-56 [facility] Comment on above: Performed By: #### L 500.4050, L100.0100, L700.6800 #### [facility] [address] [place], [address] AST [Catalytic activity/Vol] 20 U/L Normal 15-37 [facility] Comment on above: Performed By: #### L 500.4050, L100.0100, L700.6800 #### [facility] [address] [place], [address] Bilirubin [Mass/Vol] 0.60 mg/dL Normal 0.20-1.00 [facility] Comment on above: Result Comment: For patients on eltrombopag therapy, use of Dimension [place] TBIL is not recommended. Performed By: #### L 500.4050, L100.0100, L700.6800 #### [facility] [address] [place], [address] BUN/CRE 9.3 RATIO Low 10-20 [facility] Comment on above: Performed By: #### L 500.4050, L100.0100, L700.6800 #### [facility] [address] [place], [address] CA,Total 9.7 mg/dL Normal 8.5-10.1 [facility] Comment on above: Performed By: #### L 500.4050, L100.0100, L700.6800 #### [facility] [address] [place], [address] Chloride [Moles/Vol] 105 mmol/L Normal 98-107 [facility] Comment on above: Performed By: #### L 500.4050, L100.0100, L700.6800 #### [facility] [address] [place], [address] CO2 [Moles/Vol] 23.0 mmol/L Normal 21.0-32.0 [facility] Comment on above: Performed By: #### L 500.4050, L100.0100, L700.6800 #### [facility] [address] [place], [address] Creatinine [Mass/Vol] 0.86 mg/dL Normal 0.55-1.02 [facility] Comment on above: Result Comment: The validity of the calculated GFR GFRAA in patients over 70 years has not been determined. Clinical correlation is essential. Performed By: #### L 500.4050, L100.0100, L700.6800 #### [facility] [address] [place], [address] ECRCL 133.12 ml/min Normal [facility] Comment on above: Performed By: #### L 500.4050, L100.0100, L700.6800 #### [facility] [address] [place], [address] EST GFR - AA 105 mL/min Normal >60 [facility] Comment on above: Result Comment: Afri can Czech GFR Calc Performed By: #### L 500.4050, L100.0100, L700.6800 #### [facility] [address] [place], [address] GAP 8 Normal 5-15 [facility] Comment on above: Performed By: #### L 500.4050, L100.0100, L700.6800 #### [facility] [address] [place], [address] GFR/1.73 sq M.predicted among non-blacks MDRD (S/P/Bld) [Vol rate/Area] 86 mL/min/{1.73_m2} Normal >60 [facility] Comment on above: Result Comment: Non- GFR Calc Performed By: #### L 500.4050, L100.0100, L700.6800 #### [facility] [address] [place], [address] Globulin (S) [Mass/Vol] 4.2 g/dL Normal 2.2-4.2 [facility] Comment on above: Performed By: #### L 500.4050, L100.0100, L700.6800 #### [facility] [address] [place], [address] Glucose [Mass/Vol] 108 mg/dL High 74-106 [facility] Comment on above: Result Comment: Fast ing Glucose result from 100 to 125 mg/dL suggests IMPAIRED HOMEOSTASIS per A.D.A. criteria. Performed By: #### L 500.4050, L100.0100, L700.6800 #### [facility] [address] [place], [address] Potassium [Moles/Vol] 3.8 mmol/L Normal 3.5-5.1 [facility] Comment on above: Performed By: #### L 500.4050, L100.0100, L700.6800 #### [facility] [address] [place], [address] Sodium [Moles/Vol] 136 mmol/L Normal 136-145 [facility] Comment on above: Performed By: #### L 500.4050, L100.0100, L700.6800 #### [facility] [address] [place], [address] T PROT 8.3 g/dL High 6.4-8.2 [facility] Comment on above: Performed By: #### L 500.4050, L100.0100, L700.6800 #### [facility] [address] [place], [address] Urea nitrogen [Mass/Vol] 8 mg/dL Normal 7-18 [facility] Comment on above: Performed By: #### L 500.4050, L100.0100, L700.6800 #### [facility] [address] [place], [address] Emergency Department Summary on 09-24-2024 Emergency Department Summary [facility] Medical Records Department [address] [place] [address] Emergency Department Summary 09/24/24 MR#: [id number] Acct: [id number] Name: MICHAEL PALMA Rep #: [id number] : 2000 24 From: Pato Carrillo DO [...] not been able to follow-up with her [employer] [facility]. Patient states she has an appointment tomorrow [...] Medications ???Medication ???Instructions ???Recorded ???Last Taken ???Type gsoskpgi-rfu-Ur-FA 1 mg 1 tab PO DAILY 05/25/22 05/25/22 08:00 History tablet promethazine 25 mg rectal 25 mg [place] Q6H PRN nausea and 09/14/24 Unknown Rx [...] other current occupational status: employed current occupation: [employer] history of recent travel: No sexually active: [...] for leukocytos (more content not included)... Normal [facility] ,Serum,hCG Quali.on 09-24-2024 HCG, SERUM QUAL Positive Normal [facility] Comment on above: Order Comment: CRITICAL VALUE CALLED TO APPLE GALDAMEZ 09/24/24 1606 Savi Dae. RESULTS READ BACK BY SAME. Performed By: #### L 500.7130, L100.0100, L700.6800 #### [facility] [address] [place], [address] Urinalysis, Completeon 09-24 BACTERIA 1+ /hpf Normal None Seen [facility] Comment on above: Order Comment: CRITI HANNAH VALUE CALLED TO NABILA GUZMAN09/24/24 1812 Savi Lollo.RESULTS READ BACK BY SAME.ARTIFICIAL CANDY MAKER TO SPECIFY Performed By: #### L 500.4050, L100.0100, L700.6800 #### [facility] [address] [place], [address] EPI,SQUAMOUS 0-5 SEEN Normal 5-10 [facility] Comment on above: Order Comment: CRITI HANNAH VALUE CALLED TO [facility]09/24/24 1812 Savi Lollo.RESULTS READ BACK BY SAME.ARTIFICIAL CANDY MAKER TO SPECIFY Performed By: #### L 500.4050, L100.0100, L700.6800 #### [facility] [place], [address] Mucus Ql (Urine sed) 2+ /hpf Normal [facility] Comment on above: Order Comment: CRITI HANNAH [facility]UE [facility] 1812 Savi Lollo.RESULTS READ BACK BY SAME.ARTIFICIAL CANDY MAKER TO SPECIFY Performed By: #### L 500.4050, L100.0100, L700.6800 #### [facility] [address] [place], [address] RBC 0-5 SEEN Normal 0-5 [facility] Comment on above: Order Comment: CRITI HANNAH VALUE CALLED TO [facility]09/24/24 1812 Savi Lollo.RESULTS READ BACK BY SAME.ARTIFICIAL CANDY MAKER TO SPECIFY Performed By: #### L 500.4050, L100.0100, L700.6800 #### [facility] [address] [place], [address] WBC 5-10 SEEN Normal 0-5 [facility] Comment on above: Order Comment: CRITI HANNAH VALUE CALLED TO NABILA GUZMAN09/24/24 1812 Savi Anastasialanden.RESULTS READ BACK BY SAME.ARTIFICIAL CANDY MAKER TO SPECIFY Performed By: #### L 500.4050, L100.0100, L700.6800 #### [facility] [address] [place], [address] hCG Titer Quant., Serumon HCG QUANT. 78408 mIU/mL High 1-3 [facility] Comment on above: Result Comment: hCG levels with Gestational Age Gestational Age hCG mIU/mL (IU/L) 0.2 - 1 week 5 - 50 1-2 weeks 50 - 500 2-3 weeks 100 - 5000 3-4 weeks 500 - 33739 4-5 weeks 1000 - 40998 5-6 weeks 99516 - 100,000 6-8 weeks 22842 - 200,000 2-3 months 18352 - 100,000 Performed By: #### L 500.4050, L100.0100, L700.6800 #### [facility] [address] [place], [address] Urine Cultureon 09-16-2024 URC Below infection leve l. Mixed Gram Positive Organisms Zearing Count 1000-10,000 MIXC Mixed contaminants. Submit a new specimen if indicated. Normal [facility] Comment on above: Performed By: #### M 100.2200 #### [facility] [address] [place], [address] CBC W/Diff, Automatedon 08-19 Absolute Lymph 2.54 X10 3/uL Normal 0.83-4.51 [facility] Comment on above: Performed By: #### L 100.0100, L501.5200, L500.4050, L501.2450 #### [facility] [address] [place], [address] Absolute Neut 8.5 X10 3/uL High 2.0-7.7 [facility] Comment on above: Performed By: #### L 100.0100, L501.5200, L500.4050, L501.2450 #### [facility] [address] [place], [address] Basophils/100 WBC (Bld) 0.4 % Normal 0-1 [facility] Comment on above: Performed By: #### L 100.0100, L501.5200, L500.4050, L501.2450 #### [facility] [address] [place], [address] Eosinophils/100 WBC (Bld) 0.2 % Normal 0-5 [facility] Comment on above: Performed By: #### L 100.0100, L501.5200, L500.4050, L501.2450 #### [facility] [address] [place], [address] Erythrocyte distribution width (RBC) [Ratio] 13.7 % Normal 11.6-14.6 [facility] Comment on above: Performed By: #### L 100.0100, L501.5200, L500.4050, L501.2450 #### [facility] [address] [place], [address] Hematocrit (Bld) [Volume fraction] 45.4 % Normal 37-47 [facility] Comment on above: Performed By: #### L 100.0100, L501.5200, L500.4050, L501.2450 #### [facility] [address] [place], [address] Hemoglobin (Bld) [Mass/Vol] 14.7 g/dL Normal 12.0-15.0 [facility] Comment on above: Performed By: #### L 100.0100, L501.5200, L500.4050, L501.2450 #### [facility] [address] [place], [address] IG% 0.400 Normal 0.0-0.9 [facility] Comment on above: Result Comment: IG% - Immature Granulocytes (promyelocytes, myelocytes and metamyelocytes) > 1% indicates that a LEFT SHIFT is Present. Performed By: #### L 100.0100, L501.5200, L500.4050, L501.2450 #### [facility] [address] [place], [address] Lymphocytes/100 WBC (Bld) 21.7 % Normal 19-41 [facility] Comment on above: Performed By: #### L 100.0100, L501.5200, L500.4050, L501.2450 #### [facility] [address] [place], [address] MCH (RBC) [Entitic mass] 27.3 pg Normal 27.0-32.0 [facility] Comment on above: Performed By: #### L 100.0100, L501.5200, L500.4050, L501.2450 #### [facility] [address] [place], [address] MCHC (RBC) [Mass/Vol] 32.4 g/dL Normal 32-36 [facility] Comment on above: Performed By: #### L 100.0100, L501.5200, L500.4050, L501.2450 #### [facility] [address] [place], [address] MCV (RBC) [Entitic vol] 84.2 fL Normal 81-99 [facility] Comment on above: Performed By: #### L 100.0100, L501.5200, L500.4050, L501.2450 #### [facility] [address] [place], [address] Monocytes/100 WBC (Bld) 4.6 % Normal 0-10 [facility] Comment on above: Performed By: #### L 100.0100, L501.5200, L500.4050, L501.2450 #### [facility] [address] [place], [address] Neutrophils/100 WBC (Bld) 72.7 % High 47-70 [facility] Comment on above: Performed By: #### L 100.0100, L501.5200, L500.4050, L501.2450 #### [facility] [address] [place], [address] Nucleated RBC (Bld) [#/Vol] 0 10*3/uL Normal 0-5 [facility] Comment on above: Performed By: #### L 100.0100, L501.5200, L500.4050, L501.2450 #### [facility] [address] [place], [address] Platelet mean volume (Bld) [Entitic vol] 9.4 fL Normal 6.2-12.0 [facility] Comment on above: Performed By: #### L 100.0100, L501.5200, L500.4050, L501.2450 #### [facility] [address] [place], [address] Platelets (Bld) [#/Vol] 384 10*3/uL Normal 150-450 [facility] Comment on above: Performed By: #### L 100.0100, L501.5200, L500.4050, L501.2450 #### [facility] [address] [place], [address] RBC (Bld) [#/Vol] 5.39 10*6/uL Normal 4.2-5.4 [facility] Comment on above: Performed By: #### L 100.0100, L501.5200, L500.4050, L501.2450 #### [facility] [address] [place], [address] RDW SD 42.1 fl Normal 35.1-43.9 [facility] Comment on above: Performed By: #### L 100.0100, L501.5200, L500.4050, L501.2450 #### [facility] [address] [place], [address] WBC (Bld) [#/Vol] 11.7 10*3/uL High 4.4-11.0 [facility] Comment on above: Performed By: #### L 100.0100, L501.5200, L500.4050, L501.2450 #### [facility] [address] [place], [address] Comprehensive Metabolic Prof [facility] 09-14-2024 Albumin [Mass/Vol] 4.0 g/dL Normal 3.2-5.0 [facility] Comment on above: Performed By: #### L 100.0100, L501.5200, L500.4050, L501.2450 #### [facility] [address] [place], [address] Albumin/Globulin [Mass ratio] 1.0 {ratio} Normal 0.9-2.4 [facility] Comment on above: Performed By: #### L 100.0100, L501.5200, L500.4050, L501.2450 #### [facility] [address] [place], [address] ALK P 84 U/L Normal 45-117 [facility] Comment on above: Performed By: #### L 100.0100, L501.5200, L500.4050, L501.2450 #### [facility] [address] [place], [address] ALT [Catalytic activity/Vol] 44 U/L Normal 13-56 [facility] Comment on above: Performed By: #### L 100.0100, L501.5200, L500.4050, L501.2450 #### [facility] [address] [place], [address] AST [Catalytic activity/Vol] 26 U/L Normal 15-37 [facility] Comment on above: Performed By: #### L 100.0100, L501.5200, L500.4050, L501.2450 #### [facility] [address] [place], [address] Bilirubin [Mass/Vol] 0.60 mg/dL Normal 0.20-1.00 [facility] Comment on above: Result Comment: For patients on eltrombopag therapy, use of Dimension [place] TBIL is not recommended. Performed By: #### L 100.0100, L501.5200, L500.4050, L501.2450 #### [facility] [address] [place], [address] BUN/CRE 11.0 RATIO Normal 10-20 [facility] Comment on above: Performed By: #### L 100.0100, L501.5200, L500.4050, L501.2450 #### [facility] [address] [place], [address] CA,Total 9.5 mg/dL Normal 8.5-10.1 [facility] Comment on above: Performed By: #### L 100.0100, L501.5200, L500.4050, L501.2450 #### [facility] [address] [place], [address] Chloride [Moles/Vol] 108 mmol/L High 98-107 [facility] Comment on above: Performed By: #### L 100.0100, L501.5200, L500.4050, L501.2450 #### [facility] [address] [place], [address] CO2 [Moles/Vol] 23.0 mmol/L Normal 21.0-32.0 [facility] Comment on above: Performed By: #### L 100.0100, L501.5200, L500.4050, L501.2450 #### [facility] [address] [place], [address] Creatinine [Mass/Vol] 0.72 mg/dL Normal 0.55-1.02 [facility] Comment on above: Result Comment: The validity of the calculated GFR GFRAA in patients over 70 years has not been determined. Clinical correlation is essential. Performed By: #### L 100.0100, L501.5200, L500.4050, L501.2450 #### [facility] [address] [place], [address] ECRCL 127.00 ml/min Normal [facility] Comment on above: Performed By: #### L 100.0100, L501.5200, L500.4050, L501.2450 #### [facility] [address] [place], [address] EST GFR - AA 128 mL/min Normal >60 [facility] Comment on above: Result Comment: Afri can Czech GFR Calc Performed By: #### L 100.0100, L501.5200, L500.4050, L501.2450 #### [facility] [address] [place], [address] GAP 8 Normal 5-15 [facility] Comment on above: Performed By: #### L 100.0100, L501.5200, L500.4050, L501.2450 #### [facility] [address] [place], [address] GFR/1.73 sq M.predicted among non-blacks MDRD (S/P/Bld) [Vol rate/Area] 106 mL/min/{1.73_m2} Normal >60 [facility] Comment on above: Result Comment: Non- GFR Calc Performed By: #### L 100.0100, L501.5200, L500.4050, L501.2450 #### [facility] [address] [place], [address] Globulin (S) [Mass/Vol] 4.1 g/dL Normal 2.2-4.2 [facility] Comment on above: Performed By: #### L 100.0100, L501.5200, L500.4050, L501.2450 #### [facility] [address] [place], [address] Glucose [Mass/Vol] 100 mg/dL Normal 74-106 [facility] Comment on above: Result Comment: Fast ing Glucose result from 100 to 125 mg/dL suggests IMPAIRED HOMEOSTASIS per A.D.A. criteria. Performed By: #### L 100.0100, L501.5200, L500.4050, L501.2450 #### [facility] [address] [place], [address] Potassium [Moles/Vol] 3.7 mmol/L Normal 3.5-5.1 [facility] Comment on above: Performed By: #### L 100.0100, L501.5200, L500.4050, L501.2450 #### [facility] [address] [place], [address] Sodium [Moles/Vol] 139 mmol/L Normal 136-145 [facility] Comment on above: Performed By: #### L 100.0100, L501.5200, L500.4050, L501.2450 #### [facility] [address] [place], [address] T PROT 8.1 g/dL Normal 6.4-8.2 [facility] Comment on above: Performed By: #### L 100.0100, L501.5200, L500.4050, L501.2450 #### [facility] [address] [place], [address] Urea nitrogen [Mass/Vol] 8 mg/dL Normal 7-18 [facility] Comment on above: Performed By: #### L 100.0100, L501.5200, L500.4050, L501.2450 #### [facility] [address] [place], [address] Emergency Department Summary on 09-14-2024 Emergency Department Summary [facility] Medical Records Department [address] [place] [address] Emergency Department Summary 09/14/24 MR#: [id number] Acct: [id number] Name: MICHAEL PALMA Rep #: [id number] : 2000 24 From: Juana Correa DO [...] for this yet but is patient of [facility] [employer] [facility] and has an appointment scheduled. She notes [...] other complaints or concerns at this time. [facility] Medical History Anxiety Depression Asthma H/O gonorrhea Home Medications ???Medication ???Instructions ???Recorded ???Last Taken ???Type pdemkzya-aon-Yi-FA 1 mg 1 tab PO DAILY 05/25/22 05/25/22 08:00 History tablet ondansetron 4 mg disintegrating 4 mg PO Q8H PRN PRN Nausea #14 tabs 09/14/24 Unknown Rx tablet promethazine 25 mg rectal 25 mg [place] Q6H PRN nausea and 09/14/24 Unknown Rx suppository vomiting #12 ea Allergy/AdvReac Type Severity Reaction Status Date / Time No Known Allergies Allergy Verified 09/14/24 11:20 Family History Father Diabetes Unknown Heart disease Mother GERD (gastroesophageal reflux disease) Grandfather Heart disease Social History household members: significant other current occupational status: employed current occupation: [employer] history of recent travel: No sexually active: [...] female pres (more content not included)... Normal [facility] Lipaseon 09-14-2024 Lipase [Catalytic activity/Vol] 16 U/L Normal 13-75 [facility] Comment on above: Result Comment: Tg eric note: LIPASE revised reference range effective 22. New Lipase methodology. Expected to produce lower values than the previous assay method. NEW Reference Range: 13 - 75 U/L Performed By: #### L 100.0100, L501.5200, L500.4050, L501.2450 #### [facility] [address] [place], [address] M100.678on 09-14-2024 M100.678 Pending SARS-CoV-2 (COVID 19) Negative INFLUENZA A Negative INFLUENZA B Negative RSV PCR Negative Normal [facility] Comment on above: Performed By: #### M 100.678 #### [facility] [address] [place], [address] Magnesiumon 09-14-2024 Magnesium [Mass/Vol] 2.1 mg/dL Normal 1.6-2.6 [facility] Comment on above: Performed By: #### L 500.4050, L100.0100, L700.6800 #### [facility] [address] [place], [address] Urinalysis, Completeon 09-14 BACTERIA 3+ /hpf Normal None Seen [facility] Comment on above: Order Comment: CLEAN CATCH Performed By: #### L 500.4050, L100.0100, L700.6800 #### [facility] [address] [place], [address] EPI,SQUAMOUS 0-5 SEEN Normal 5-10 [facility] Comment on above: Order Comment: CLEAN CATCH Performed By: #### L 500.4050, L100.0100, L700.6800 #### [facility] [address] [place], [address] Mucus Ql (Urine sed) 2+ /hpf Normal [facility] Comment on above: Order Comment: CLEAN CATCH Performed By: #### L 500.4050, L100.0100, L700.6800 #### [facility] [address] [place], [address] WBC 0-5 SEEN Normal 0-5 [facility] Comment on above: Order Comment: CLEAN CATCH Performed By: #### L 500.4050, L100.0100, L700.6800 #### [facility] [address] [place], [address] RBC 0 SEEN Normal 0-5 [facility] Comment on above: Order Comment: CLEAN CATCH Performed By: #### L 500.4050, L100.0100, L700.6800 #### [facility] [address] [place], [address] hCG Titer Quant., Serumon HCG QUANT. 26029 mIU/mL High 1-3 [facility] Comment on above: Result Comment: hCG levels with Gestational Age Gestational Age hCG mIU/mL (IU/L) 0.2 - 1 week 5 - 50 1-2 weeks 50 - 500 2-3 weeks 100 - 5000 3-4 weeks 500 - 94899 4-5 weeks 1000 - 48930 5-6 weeks 38155 - 100,000 6-8 weeks 63965 - 200,000 2-3 months 42237 - 100,000 Performed By: #### L 500.4050, L100.0100, L700.6800 #### [facility] [place], [address] [facility] CNPN Telephone (OBGYWM) -- MICHAEL PALMA ([id number]) 2 F UPA Date Time Provider Department [...] Date Reviewed: 05/06/2024 Reviewed by: Madi Moss APRN.[facility] - Fully Assessed Reason for Visit: [...] Status:Closed by RACHAEL ELENA on 09/13/24 Normal [facility] C. trachomatis+N. gonorrhoea e DNA LOTTIE+probe Ql (Unsp spec)on 05-06-2024 C. trachomatis rRNA LOTTIE+probe Ql (Unsp spec) Negative Normal Negative for Chlamydia trachomatis by amplificaton [facility] Comment on above: Order Comment: Speci men Type: SWABOrdering Facility: [facility] Address: [address] [place] [address] Performed By: #### 3 6902-5 ####[facility] LABCLIA [id number] [address] [place] N. gonorrhoeae rRNA LOTTIE+probe Ql (Unsp spec) Negative Normal Negative for Neisseria gonorrhoeae by amplification [facility] Comment on above: Order Comment: Speci men Type: SWABOrdering Facility: [facility] Address: [address] [place] [address] Performed By: #### 3 6902-5 ####[facility] LABCLIA [id number] [facility] [id number] [id number] [place] CBC panel Auto (Bld)on 05-06 Erythrocyte distribution width (RBC) [Ratio] 13.8 % Normal 11.5-15.0 [facility] Comment on above: Order Comment: Speci men Type: BLOOD SPECIMENOrdering Facility: [facility] Address: [address] [place] [address] Performed By: #### 5 8410-2 ####[facility] [id number] [place] [address] [place] Hematocrit (Bld) [Volume fraction] 44.3 % Normal 36.0-46.0 [facility] Comment on above: Order Comment: Speci men Type: BLOOD SPECIMENOrdering Facility: [facility] Address: [address] [place] [address] Performed By: #### 5 8410-2 ####[facility] [id number] [place] [address] [place] Hemoglobin (Bld) [Mass/Vol] 14.2 g/dL Normal 11.5-15.5 [facility] Comment on above: Order Comment: Speci men Type: BLOOD SPECIMENOrdering Facility: [facility] Address: [address] [place] [address] Performed By: #### 5 8410-2 ####[facility]ITAL[facility]CLI [id number] [place] [address] [place] MCH (RBC) [Entitic mass] 27.5 pg Normal 26.0-34.0 [facility] Comment on above: Order Comment: Speci men Type: BLOOD SPECIMENOrdering Facility: [facility] Address: [address] [place] [address] Performed By: #### 5 8410-2 ####[facility] FLORIDAWNCLIA [id number] [place] [address] [place] MCHC (RBC) [Mass/Vol] 32.1 g/dL Normal 30.5-36.0 [facility] Comment on above: Order Comment: Speci men Type: BLOOD SPECIMENOrdering Facility: [facility] Address: [address] [place] [address] Performed By: #### 5 8410-2 ####[facility] H[facility]ITALLIA [id number] [place] [address] [place] MCV (RBC) [Entitic vol] 85.7 fL Normal 80.0-100.0 [facility] Comment on above: Order Comment: Speci men Type: BLOOD SPECIMENOrdering Facility: [facility] Address: [address] [place] [address] Performed By: #### 5 8410-2 ####[facility] [id number] [place] [address] [place] Nucleated RBC (Bld) [#/Vol] 10*3/uL Normal <0.01 [facility] Comment on above: Order Comment: Speci men Type: BLOOD SPECIMENOrdering Facility: [facility] Address: [address] [place] [address] Performed By: #### 5 8410-2 ####[facility] [id number] [place] [address] [place] Platelet mean volume (Bld) [Entitic vol] 9.2 fL Normal 9.0-12.7 [facility] Comment on above: Order Comment: Speci men Type: BLOOD SPECIMENOrdering Facility: [facility] Address: [address] [place] [address] Performed By: #### 5 8410-2 ####[facility]ITALNCLIA [id number] [place] [address] [place] Platelets (Bld) [#/Vol] 317 10*3/uL Normal 150-400 [facility] Comment on above: Order Comment: Speci men Type: BLOOD SPECIMENOrdering Facility: [facility] Address: [address] [place] [address] Performed By: #### 5 8410-2 ####[facility] NAPLESWNCLIA [id number] [place] [address] [place] RBC (Bld) [#/Vol] 5.17 10*6/uL Normal 3.90-5.20 [facility] Comment on above: Order Comment: Speci men Type: BLOOD SPECIMENOrdering Facility: [facility] Address: [address] [place] [address] Performed By: #### 5 8410-2 ####[facility]ITAL[facility]CLIA [id number] [place] [address] [place] WBC (Bld) [#/Vol] 9.75 10*3/uL Normal 3.70-11.00 [facility] Comment on above: Order Comment: Speci men Type: BLOOD SPECIMENOrdering Facility: [facility] Address: [address] [place] [address] Performed By: #### 5 8410-2 ####[facility] NAPLESWNCLIA [id number] [place] [address] [place] CNOVon 05-06-2024 CNOV Office Visit (OBGYWM ) -- MICHAEL PALMA ([id number]) 2 F UPA Date Time Provider Department 05/06/24 3:30 PM MADI MOSS OBSHERIF During your visit today, we recorded the following information about you: Pulse Respiration Blood pressure Weight 82/minute 16/minute 120/74 109.8 kg Madi Moss APRN.CNP 05/06/2024 4:36 PM Signed Msws offered: Patient declines. Michael is a 23 [...] Madi Moss APRN.CNP Referring Provider: MADI MOSS [[id number]] Allergies As of Date: 05/06/2024 (No Known Allergies) Date Reviewed: 05/06/2024 Reviewed by: Madi Moss APRN.CNP - Fully Assessed Reason for Visit: Nexplanon Removal [Other] Primary Visit Diagnosis:Nexplanon removal [Z30.46] Other Visit Diagnosis:Screening for STD (sexually transmitted disease) [Z11.3] Order(s):GONORRHEA/CHLAMYD IA NAAT [SQGCCT] Order #: [id number]. #:[id number] Prescriptions as of 05/06/2024 - albuterol HFA [...] Status:Closed by MADI MOSS on 05/06/24 Normal [facility] HbA1c (Bld)on 05-06-2024 Average glucose Estimated from glycated hemoglobin (Bld) [Mass/Vol] 88 mg/dL Normal [facility] [facility] Comment on above: Order Comment: Cheryl raza Type: BLOOD SPECIMENOrdering Facility: [facility] Address: [address] [place] [address] Result Comment: eAG: (Estimated average glucose) is a calculated value from HgbA1c and is patient intake representative of the average blood glucose level in the last 2-3 month period. Performed By: #### 5 5454-3 ####[facility] LABCLIA [id number] [place] [address] [place] HbA1c (Bld) [Mass fraction] 4.7 % Normal 4.3-5.6 [facility] Comment on above: Order Comment: Cheryl raza Type: BLOOD SPECIMENOrdering Facility: [facility] Address: [address] [place] [address] Result Comment: Ambob ican Diabetes Association guidelines indicate that patients with HgbA1c in the range 5.7-6.4% are at increased risk for development of diabetes, and intervention by lifestyle modification may be beneficial. HgbA1c greater or equal to 6.5% is considered diagnostic of diabetes. Performed By: #### 5 5454-3 ####[facility] LABCLIA [id number] [place] [address] [place] Prolactin SerPl-mCncon 05-06 Prolactin [Mass/Vol] 11.2 ng/mL Normal 4.5-26.8 [facility] Comment on above: Order Comment: Cheryl raza Type: BLOOD SPECIMEN [facility] Address: [address] [place] [address] Result Comment: Prol actin test is performed using the [employer] Electrochemiluminescence Immunoassay method. Results obtained with different methods or kits cannot be used interchangeably. Performed By: #### 2 4323-8 #### [facility] CLIA [id number] [address] [place] [address] [place] T4 Free SerPl-mCncon 024 Free T4 [Mass/Vol] 1.1 ng/dL Normal 0.9-1.7 [facility] Comment on above: Order Comment: Speci men Type: BLOOD SPECIMEN [facility] Address: [address] [place] [address] Performed By: #### 2 4323-8 #### [facility] CLIA [id number] [address] [place] [address] [place] TSH SerPl-aCncon 05-06-2024 TSH Qn 2.590 m[IU]/L Normal 0.270-4.200 [facility] Comment on above: Order Comment: Speci men Type: BLOOD SPECIMEN [facility] Address: [address] [place] [address] Result Comment: If t he patient is , TSH reference range varies by gestational period: First Trimester (weeks 9-12): 0.180-2.990 mIU/L Second Trimester: 0.110-3.980 mIU/L Third Trimester: 0.480-4.710 mIU/L Cornelio Mcintosh et al. A Practical Approach for the Verifications and Determination of Site- and Trimester-Specific Reference Intervals for Thyroid Function tests in . Thyroid, 2019:29:3:412-420. Dorian E, et al. 2017 Guidelines of the [place] Thyroid Association for the Diagnosis and Management of Thyroid Disease during and the . Thyroid, 2017:27:3:315-389. Performed By: #### 2 4323-8 #### [facility] CLIA [id number] [address] [place] [address] [place] BACTERIAL VAGINOSIS NAATon 0 05-03-2024 Lactobacillus crispatus+gasseri+j ensenii + Gardnerella vaginalis + Atopobium vaginae rRNA LOTTIE+probe Ql (Vag fld) Negative Normal Negative for bacterial vaginosis [facility] Comment on above: Order Comment: Speci men Type: SWABOrdering Facility: [facility] Address: [address] [place] [address] Performed By: #### C VTV, BVAMP ####[facility] LABCLIA [id number] [place] [address] [place] ALIREZA/TRICHOMONAS NAATon 0 05-03-2024 C. glabrata RNA LOTTIE+probe Ql (Vag fld) Negative Normal Negative for Alireza glabrata [facility] Comment on above: Order Comment: Speci men Type: SWABOrdering Facility: [facility] Address: [address] [place] [address] Performed By: #### C VTV, BVAMP ####[facility] LABCLIA [id number] [place] [address] [place] Alireza sp DNA LOTTIE+probe Ql (Vag fld) Negative Normal Negative for Alireza species [facility] Comment on above: Order Comment: Speci men Type: SWABOrdering Facility: [facility] Address: [address] [place] [address] Performed By: #### C VTV, BVAMP ####[facility] LABCLIA [id number] [place] [address] [place] T. vaginalis DNA LOTTIE+probe Ql (Unsp spec) Negative Normal Negative for Trichomonas vaginalis by amplification [facility] Comment on above: Order Comment: Speci men Type: SWABOrdering Facility: [facility] Address: [address] [place] [address] Performed By: #### C VTV, BVAMP ####[facility] LABCLIA [id number] [place] [address] [place] CNOVon 05-03-2024 CNOV Office Visit (OBGYWM ) -- MICHAEL PALMA ([id number]) 2 F UPA Date Time Provider Department 05/03/24 2:00 PM MADI MOSS During your visit today, we recorded the following information about you: Pulse Respiration Blood pressure Weight 91/minute 14/minute 104/70 107 kg Height Last Period 1.71 m 01/18/24 Madi Moss APRN.BATCH STILL OPERATOR 05/03/2024 2:27 PM Signed Msws offered: Patient declines. Michael is a 23 [...] OB History No obstetric history on file. 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 Madi Moss APRN.CNP Medical Decision Making: Problems: Low: Acute, uncomplicated illness or injury Data: Unique test(s) ordered: 3+ Risk: Low: Low risk from testing/treatment Medical Decision Making Level: 3 - Low Madi Moss APRN.CNP 05/03/2024 2:18 PM Addendum ____ *Revaree is a [facility] recommended, leading selling vaginal insert for the relief of symptoms of vaginal atrophy and the samaritan of the vagi (more content not included)... Normal [facility] PAP TESTon 05-03-2024 ADEQUACY Satisfactory for interpretation. Normal [facility] Comment on above: Order Comment: Speci men Type: FLUID SPECIMENOrdering Facility: [facility] Address: [address] [place] [address] Performed By: #### L [id number] ####[facility] LABCLIA [id number] [place] [address] [place] CASE REPORT Normal [facility] Comment on above: Order Comment: Speci men Type: FLUID SPECIMENOrdering Facility: [facility] Address: [address] [place] [address] Result Comment: Gyne cologic Cytology Report Case: [id number] Authorizing Provider: Madi Moss APRN.CNP Collected: 05/03/2024 02:26 PM Ordering Location: OB/Gynecology Received: 05/03/2024 04:55 PM First Screen: [place], [place], [place], ASCP Specimen: Pap Test, ThinPrep, Cervix Performed By: #### L [id number] ####[facility] LABCLIA [id number] [place] [address] [place] CLINICAL HISTORY, CYTOLOGY, BRAILLE TEACHER Routine Exam Normal [facility] Comment on above: Order Comment: Speci men Type: FLUID SPECIMENOrdering Facility: [facility] Address: [address] [place], [place] [address] Performed By: #### L [id number] ####[facility] LABCLIA [id number] [place] [address] [place] FINAL PERFORMING LAB Normal [facility] Comment on above: Order Comment: Speci men Type: FLUID SPECIMENOrdering Facility: [facility] Address: [address] [place] [address] Result Comment: Tech nical component, purchasing and claims supervisor screening performed at [facility], [address] [place] [address] [place] [address] CLIA# [id number] Diagnostic interpretation performed at [facility], [address] [place], [place] [id number] CLIA# [id number] Brusher And Shearer: London Rodriguez M.D. Performed By: #### L [id number] ####[facility] LABCLIA [id number] [place] [address] [place] HPV REFLEX HPV if Atypical Normal [facility] Comment on above: Order Comment: Speci men Type: FLUID SPECIMENOrdering Facility: [facility] Address: [address] [place] [address] Performed By: #### L [id number] ####[facility] LABCLIA [id number] [place] [id number] [place] INTERPRETATION, CYTOLOGY, BRAILLE TEACHER Normal [facility] Comment on above: Order Comment: Speci men Type: FLUID SPECIMENOrdering Facility: [facility] Address: [address] [place] [address] Result Comment: Nega tive for intraepithelial lesion or malignancy. Performed By: #### L [id number] ####[facility] LABCLIA [id number] [place] [id number] [place] LMP 01/09/2024 Normal [facility] Comment on above: Order Comment: Speci men Type: FLUID SPECIMENOrdering Facility: [facility] Address: [address] [place] [address] Result Comment: Comm ent: Estimated date, has Nexplanon Performed By: #### L [id number] ####[facility] LABCLIA [id number] [place] [address] [place] PAP DISCLAIMER COMMENT The Pap Smear is a screening test for cervical cancer. False negative results occur with all screening tests, emphasizing the need for rescreening at recommended intervals, and clinical correlation. Normal [facility] Comment on above: Order Comment: Speci men Type: FLUID SPECIMENOrdering Facility: [facility] Address: [address] [place] [address] Performed By: #### L [id number] ####[facility] LABCLIA [id number] [place] [address] [place] PAP WELDING OPERATOR COMMENT This specimen has be en analyzed by the ThinPrep Imaging System, an automated imaging and review system, which assists the laboratory in evaluating cells on ThinPrep Pap tests. Following automated imaging, selected guzman from every slide are reviewed by a purchasing and claims supervisor. Normal [facility] Comment on above: Order Comment: Speci men Type: FLUID SPECIMENOrdering Facility: [facility] Address: [address] [place] [address] Performed By: #### L [id number] ####[facility] LABCLIA [id number] [place] [address] [place] XR Chest PA and Lateralon IMPRESSION: NO EVIDENCE OF ACTIVE DISEASE. Palliative Care Coordinator: PSCB Transcribe Date/Time: Oct 30 2023 11:04A Dictated by : APARNA ZUNIGA MD This examination was interpreted and the report reviewed and electronically signed by: APARNA ZUNIGA MD on Oct 30 2023 11:06AM [facility] DIVISION OF RADIOLOGY * * [...] angles appear sharp. DIVISION OF RADIOLOGY Provider, [facility] - 10/30/2023 * * *Final Report* * [...] IMPRESSION IMPRESSION: NO EVIDENCE OF ACTIVE DISEASE. [facility] Trans[facility] Date/Time: Oct 30 2023 11:04A Dictated by : APARNA ZUNIGA MD This examination was interpreted and the report reviewed and electronically signed by: APARNA ZUNIGA MD on Oct 30 2023 11:06AM EST [facility] Radiology Study observation (narrative) [facility] XR Chest PA and LateralOrder ed By: [facility] Provider on 10-30-2023 [facility] XR Toes - right 3 Viewson IMPRESSION: Acute fifth proximal phalanx fracture. Palliative Care Coordinator: [facility] Transcribe Date/Time: Oct 30 2023 12:08P Dictated by : AGNIESZKA CUNNINGHAM MD This examination was interpreted and the report reviewed and electronically signed by: AGNIESZKA CUNNINGHAM MD on Oct 30 2023 12:08PM [facility] DIVISION OF RADIOLOGY * * [...] IMPRESSION IMPRESSION: Acute fifth proximal phalanx fracture. Palliative Care Coordinator: SHAN Transcribe Date/Time: Oct 30 2023 12:08P Dictated by : AGNIESZKA CUNNINGHAM MD This examination was interpreted and the report reviewed and electronically signed by: AGNIESZKA CUNNINGHAM MD on Oct 30 2023 12:08PM EST [facility] Radiology Study observation (narrative) [facility] XR Toes - right 3 ViewsOrder ed By: [facility] Provider on 10-30-2023 [facility] STREP A MOLECULAR (POC)on Procedural Control Valid [facility] Strep A (POCT) Negative Negative [facility] STREP A MOLECULAR (POC)on Procedural Control Valid [facility] Strep A (POCT) Negative Negative [facility] Influenza virus A and B RNA and SARS-CoV-2 (COVID-19) N gene panel LOTTIE+probe (Resp)on 11-28-2022 FLUAV RNA LOTTIE+probe Ql (Unsp spec) Not detected Not Detected [facility] FLUBV RNA LOTTIE+probe Ql (Unsp spec) Not detected Not Detected [facility] SARS-CoV-2 (COVID-19) RNA LOTTIE+probe Ql (Resp) Not detected See comment [facility] Basophil percentageon 2021 Basophil percentage 0-5 SEEN /hpf 0-5 [facility] Work Phone: Bilirubin [Mass/Vol] 0.30 mg/dL 0.20-1.00 [facility] Work Phone: Comment on above: For patients on eltr ombopag therapy, use of Dimension [place] TBIL is not recommended. Chloride [Moles/Vol] 108 mmol/L 98-107 [facility] Work Phone: Glucose [Mass/Vol] 98 mg/dL 74-106 [facility] Work Phone: [phone] Potassium [Moles/Vol] 3.8 mmol/L 3.5-5.1 [facility] Work Phone: [phone] Protein [Mass/Vol] 6.5 g/dL 6.4-8.2 [facility] Work Phone: [phone] Sodium [Moles/Vol] 140 mmol/L 136-145 [facility] Work Phone: WBC (Bld) [#/Vol] 11.2 10*3/uL 4.4-11.0 [facility] Work Phone: Bilirubin Test strip Ql (U)o n 05-25-2022 Bilirubin Ql (U) Negative Negative [facility] Work Phone: Blood erythrocytes count (nu mber/volume)on 05-25-2022 RBC (Bld) [#/Vol] 4.59 10*6/uL 4.2-5.4 [facility] Work Phone: [phone] Blood hemoglobin measurement (mass/volume)on 05-25-2022 Hemoglobin (Bld) [Mass/Vol] 10.3 g/dL 12.0-15.0 [facility] Work Phone: Blood platelet mean volumeon 05-25-2022 Platelet mean volume (Bld) [Entitic vol] 9.8 fL 6.2-12.0 [facility] Work Phone: Determination of erythrocyte mean corpuscular volume (MCV)on 05-25-2022 MCV (RBC) [Entitic vol] 75.2 fL 81-99 [facility] Work Phone: Hematocrit Auto (Bld) [Volum e fraction]on 05-25-2022 Hematocrit (Bld) [Volume fraction] 34.5 % 37-47 [facility] Work Phone: [phone] Ketones Test strip Ql (U)on 05-25-2022 Ketones Ql (U) Negative Negative [facility] Work Phone: [phone] Laboratory - Chemistry and C hemistry - challengeon 05-25-2022 ALP [Catalytic activity/Vol] 162 U/L 45-117 [facility] Work Phone: ALT [Catalytic activity/Vol] 13 U/L 13-56 [facility] Work Phone: CO2 [Moles/Vol] 23.0 mmol/L 21.0-32.0 [facility] Work Phone: [phone] Globulin (S) [Mass/Vol] 4.0 g/dL 2.2-4.2 [facility] Work Phone: [phone] Urea nitrogen/Creatinine [Mass ratio] 14.9 mg/mg 10-20 [facility] Work Phone: Laboratory - Hematology and Cell countson 05-25-2022 Erythrocyte distribution width (RBC) [Entitic vol] 42.9 fL 35.1-43.9 [facility] Work Phone: [phone] Erythrocyte distribution width (RBC) [Ratio] 16.0 % 11.6-14.6 [facility] Work Phone: [phone] MCH (RBC) [Entitic mass] 22.4 pg 27.0-32.0 [facility] Work Phone: MCHC Auto (RBC) [Mass/Vol]on 05-25-2022 MCHC (RBC) [Mass/Vol] 29.9 g/dL 32-36 [facility] Work Phone: Mucus LM Ql (Urine sed)on Mucus Ql (Urine sed) 0 SEEN /hpf [facility] Work Phone: Nitrite Test strip Ql (U)on 05-25-2022 Nitrite Ql (U) Negative Negative [facility] Work Phone: No Panel Informationon 05-25 Estimated Creatinine Clearance Calc 143.69 ml/min [facility] Work Phone: Estimated GFR (MDRD) Amer 154 mL/min >60 [facility] Work Phone: Comment on above: GFR Calc Estimated GFR (MDRD) Non-Af Amer 127 mL/min >60 [facility] Work Phone: Comment on above: Non- GFR Calc Platelets bldon 05-25-2022 Platelets (Bld) [#/Vol] 347 10*3/uL 150-450 [facility] Work Phone: Protein Test strip Ql (U)on 05-25-2022 Protein Ql (U) 15 mg/dl Negative [facility] Work Phone: Serum or plasma albumin julio urement (mass/volume)on 05-25-2022 Albumin [Mass/Vol] 2.5 g/dL 3.2-5.0 [facility] Work Phone: Serum or plasma albumin/glob ulin mass ratioon 05-25-2022 Albumin/Globulin [Mass ratio] 0.6 {ratio} 0.9-2.4 [facility] Work Phone: Serum or plasma calcium julio urement (mass/volume)on 05-25-2022 Calcium [Mass/Vol] 9.0 mg/dL 8.5-10.1 [facility] Work Phone: Serum or plasma creatinine m easurement (mass/volume)on 05-25-2022 Creatinine [Mass/Vol] 0.63 mg/dL 0.55-1.02 [facility] Work Phone: Comment on above: The validity of the calculated GFR & GFRAA in patients over 70 years has not been determined. Clinical correlation is essential. Serum or plasma urea nitroge n measurement (mass/volume)on 05-25-2022 Urea nitrogen [Mass/Vol] 9 mg/dL 7-18 [facility] Work Phone: Serum or plasma uric acid me asurement (mass/volume)on 05-25-2022 Urate [Mass/Vol] 4.3 mg/dL 2.6-6.0 [facility] Work Phone: Comment on above: The drugs N-Acetylcy steine and Metamizole may falsely depress this assay. Squamous epithelial cells de tection in urine sediment by light microscopyon 05-25-2022 Epithelial cells.squamous LM Ql (Urine sed) 0-5 SEEN /hpf 5-10 [facility] Work Phone: Thin prep Papanicolaou smear with manual screeningon 05-25-2022 Thin prep Papanicolaou smear with manual screening 14 U/L 15-37 [facility] Work Phone: Thin prep Papanicolaou smear with manual screening 9 5-15 [facility] Work Phone: Thin prep Papanicolaou smear with manual screening 161 U/L 84-246 [facility] Work Phone: Urine blood detectionon RBC Ql (U) 250 /ul Negative [facility] Work Phone: RBC Ql (U) 0 SEEN /hpf 0-5 [facility] Work Phone: Urine clarityon 05-25-2022 Clarity (U) Sl. Cloudy Clear [facility] Work Phone: Urine color determinationon 05-25-2022 Color (U) Yellow Yellow [facility] Work Phone: Urine creatinine measurement (mass/volume)on 05-25-2022 Creatinine (U) [Mass/Vol] 53.80 mg/dL NO RANGE EST. [facility] Work Phone: [phone] Urine glucose detectionon Glucose Ql (U) Normal mg/dl Normal [facility] Work Phone: Urine leukocyte esterase det ection by dipstickon 05-25-2022 Leukocyte esterase Test strip Ql (U) 100 /ul Negative [facility] Work Phone: [phone] Urine pHon 05-25-2022 pH (U) 6.0 [pH] 5.0 - 8.0 [facility] Work Phone: Urine protein measurement (m ass/volume)on 05-25-2022 Protein (U) [Mass/Vol] 11.0 mg/dL 0.0-11.8 [facility] Work Phone: [phone] Urine protein/creatinine mas s ratioon 05-25-2022 Protein/Creatinine (U) [Mass ratio] 204 mg/g CRE 0-200 [facility] Work Phone: [phone] Urine sediment bacteria coun t by microscopy (number/high power field)on 05-25-2022 Bacteria LM.HPF (Urine sed) [#/Area] 1 /[HPF] None Seen [facility] Work Phone: [phone] Urine specific gravity measu rementon 05-25-2022 Specific gravity (U) [Rel density] 1.010 1.002-1.030 [facility] Work Phone: [phone] Urobilinogen Auto test strip Ql (U)on 05-25-2022 Urobilinogen Ql (U) Normal mg/dl Normal [facility] Work Phone: [phone] Basophil percentageon 2021 WBC (Bld) [#/Vol] 10.4 10*3/uL 4.4-11.0 [facility] Work Phone: [phone] Blood erythrocytes count (nu mber/volume)on 03-15-2022 RBC (Bld) [#/Vol] 4.15 10*6/uL 4.2-5.4 [facility] Work Phone: [phone] Blood hemoglobin measurement (mass/volume)on 03-15-2022 Hemoglobin (Bld) [Mass/Vol] 11.0 g/dL 12.0-15.0 [facility] Work Phone: [phone] Blood platelet mean volumeon 03-15-2022 Platelet mean volume (Bld) [Entitic vol] 9.8 fL 6.2-12.0 [facility] Work Phone: Determination of erythrocyte mean corpuscular volume (MCV)on 03-15-2022 MCV (RBC) [Entitic vol] 82.7 fL 81-99 [facility] Work Phone: Gestational diabetes screen 1-hour screen with 50g oral glucose loadon 03-15-2022 Glucose 1 Hr post 50 g glucose PO [Mass/Vol] 122 mg/dL 70-140 [facility] Work Phone: Hematocrit Auto (Bld) [Volum e fraction]on 03-15-2022 Hematocrit (Bld) [Volume fraction] 34.3 % 37-47 [facility] Work Phone: Laboratory - Hematology and Cell countson 03-15-2022 Erythrocyte distribution width (RBC) [Entitic vol] 40.0 fL 35.1-43.9 [facility] Work Phone: Erythrocyte distribution width (RBC) [Ratio] 13.3 % 11.6-14.6 [facility] Work Phone: MCH (RBC) [Entitic mass] 26.5 pg 27.0-32.0 [facility] Work Phone: MCHC Auto (RBC) [Mass/Vol]on 03-15-2022 MCHC (RBC) [Mass/Vol] 32.1 g/dL 32-36 [facility] Work Phone: Platelets bldon 03-15-2022 Platelets (Bld) [#/Vol] 324 10*3/uL 150-450 [facility] Work Phone: Progress Noteon 01-25-2022 Vault Attendant Authentication Interface Message Text [facility] MATERNAL- MEDICINE FOLLOW-UP CONSULT Referring/Requesting Provider: CHUCHO [...] - 10/28/2019: Titer 1:1280 (Care Everywhere - [facility]) - Pt had mononucleosis, increased liver enzymes [...] on patient care today: 21 minutes. Normal [facility] BETA 2 GLYCOPROTEIN, IGGon 0 12-31-2021 Beta 2 glycoprotein 1 IgG IA Qn <9 Normal <20 [facility] Comment on above: Order Comment: Cheryl raza Type: BLOOD SPECIMENOrdering Facility: [facility] Address: [address] [place] [address] Result Comment: <20 SGU Negative 20-80 SGU Low Positive >80 SGU High Positive These results were obtained with the [employer] QUANTA Lite B2 GPI IgG MAGDALENO. B2 GPI IgG values obtained with different manufacturers' assay methods may not be used interchangeably. The magnitude of the reported IgG levels cannot be correlated to an endpoint titer. Performed By: #### B ETA2M, BETA2G, DNAAB ####[facility] LABCLIA [id number] [address] [place] BETA 2 GLYCOPROTEIN, IGMon 0 12-31-2021 Beta 2 glycoprotein 1 IgM IA Qn <9 Normal <20 [facility] Comment on above: Order Comment: Cheryl raza Type: BLOOD SPECIMENOrdering Facility: [facility] Address: [address] [place] [address] Result Comment: <20 SMU Negative 20-80 SMU Low Positive >80 SMU High positive These results were obtained with the [employer] QUANTA Lite B2 GPI IgM MAGDALENO. B2 GPI IgM values obtained with different manufacturers' assay methods may not be used interchangeably. The magnitude of the reported IgM levels cannot be correlated to an endpoint titer. Performed By: #### B ETA2M, BETA2G, DNAAB ####[facility] LABCLIA [id number] [address] CARDIOLIPIN IGG ABSon 2021 Cardiolipin IgG IA Qn (S) <9.0 Normal <15.0 [facility] Comment on above: Order Comment: Cheryl luz marina Type: BLOOD SPECIMENOrdering Facility: [facility] Address: [address] [place] [address] Result Comment: <15 GPL Negative 15-20 GPL Indeterminate >20 GPL Positive The following results were obtained with the [employer] QUANTA Lite VALENTE IgG III MAGDALENO. Cardiolipin IgG values obtained with the different manufacturers' assay methods may not be used interchangeably. The magnitude of the reported IgG levels cannot be correlated to an endpoint titer. Performed By: #### 5 [id number] CARDIG ####[facility] LABCLIA [id number] [address] CARDIOLIPIN IGM ABSon 2021 Cardiolipin IgM IA Qn (S) <9.0 Normal <12.5 [facility] Comment on above: Order Comment: Cheryl luz marina Type: BLOOD SPECIMENOrdering Facility: [facility] Address: [address] [place] [address] Result Comment: <12. 5 MPL Negative 12.5-20 MPL Indeterminate >20 MPL Positive The following results were obtained with the [employer] QUANTA Lite VALENTE IgM III MAGDALENO. Cardiolipin IgM values obtained with the different manufacturers' assay methods may not be used interchangeably. The magnitude of the reported IgM levels cannot be correlated to an endpoint titer. ??? Performed By: #### 5 076-5SHANNON CARDIG ####[facility] LABCLIA [id number] [address] CBC W Auto Differential pane l (Bld)on 12-31-2021 Basophils (Bld) [#/Vol] 0.03 10*3/uL Normal <0.11 [facility] Comment on above: Order Comment: Speci men Type: BLOOD SPECIMENOrdering Facility: [facility] Address: [address] [place] [address] Performed By: #### 5 7021-8 ####[facility] LABCLIA [id number] [place] [address] [place] Basophils/100 WBC (Bld) 0.3 % Normal [facility] Comment on above: Order Comment: Speci men Type: BLOOD SPECIMENOrdering Facility: [facility] Address: [address] [place] [address] Performed By: #### 5 7021-8 ####[facility] [place] LABCLIA [id number] [place] [id number] [place] Differential cell count method Nom (Bld) Auto Normal [facility] Comment on above: Order Comment: Speci men Type: BLOOD SPECIMENOrdering Facility: [facility] Address: [address] [place] [address] Performed By: #### 5 7021-8 ####[facility] LABCLIA [id number] [place] [id number] [place] Eosinophils (Bld) [#/Vol] 0.16 10*3/uL Normal <0.46 [facility] Comment on above: Order Comment: Speci men Type: BLOOD SPECIMENOrdering Facility: [facility] Address: [address] [place] [address] Performed By: #### 5 7021-8 ####[facility] [place] LABCLIA [id number] [place] [address] [place] Eosinophils/100 WBC (Bld) 1.4 % Normal [facility] Comment on above: Order Comment: Speci men Type: BLOOD SPECIMENOrdering Facility: [facility] Address: [address] [place] [address] Performed By: #### 5 7021-8 ####[facility] [place] LABCLIA [id number] [facility] [place] [address] [place] Erythrocyte distribution width (RBC) [Ratio] 13.3 % Normal 11.5-15.0 [facility] Comment on above: Order Comment: Speci men Type: BLOOD SPECIMENOrdering Facility: [facility] Address: [address] [place] [address] Performed By: #### 5 7021-8 ####[facility] [place] LABCLIA [id number] [facility] [place] [address] [facility] [place] Hematocrit (Bld) [Volume fraction] 37.4 % Normal 36.0-46.0 [facility] Comment on above: Order Comment: Speci men Type: BLOOD SPECIMENOrdering Facility: [facility] Address: [address] [place] [address] Performed By: #### 5 7021-8 ####[facility] [place] LABCLIA [id number] [facility], [address] [place] Hemoglobin (Bld) [Mass/Vol] 12.3 g/dL Normal 11.5-15.5 [facility] Comment on above: Order Comment: Speci men Type: BLOOD SPECIMENOrdering Facility: [facility] Address: [address] [place] [address] Performed By: #### 5 7021-8 ####[facility] [place] LABCLIA [id number] [facility] [place] [address] [place] Lymphocytes (Bld) [#/Vol] 2.75 10*3/uL Normal 1.00-4.00 [facility] Comment on above: Order Comment: Speci men Type: BLOOD SPECIMENOrdering Facility: [facility] Address: [address] [place] [address] Performed By: #### 5 7021-8 ####[facility] [place] LABCLIA [id number] [facility] [place] Lymphocytes/100 WBC (Bld) 23.3 % Normal [facility] Comment on above: Order Comment: Speci men Type: BLOOD SPECIMENOrdering Facility: [facility] Address: [address] [place] [address] Performed By: #### 5 7021-8 ####[facility] [employer] LABCLIA [id number] [address] MCH (RBC) [Entitic mass] 27.8 pg Normal 26.0-34.0 [facility] Comment on above: Order Comment: Speci men Type: BLOOD SPECIMENOrdering Facility: [facility] Address: [address] [place] [address] Performed By: #### 5 7021-8 ####[facility] [employer] LABCLIA [id number] [address] MCHC (RBC) [Mass/Vol] 32.9 g/dL Normal 30.5-36.0 [facility] Comment on above: Order Comment: Speci men Type: BLOOD SPECIMENOrdering Facility: [facility] Address: [address] [place] [address] Performed By: #### 5 7021-8 ####[facility] LABCLIA [id number] [address] MCV (RBC) [Entitic vol] 84.4 fL Normal 80.0-100.0 [facility] Comment on above: Order Comment: Speci men Type: BLOOD SPECIMENOrdering Facility: [facility] Address: [address] [place] [address] Performed By: #### 5 7021-8 ####[facility] [place] LABCLIA [id number] [address] Monocytes (Bld) [#/Vol] 0.71 10*3/uL Normal <0.87 [facility] Comment on above: Order Comment: Speci men Type: BLOOD SPECIMENOrdering Facility: [facility] Address: [address] [place] [address] Performed By: #### 5 7021-8 ####[facility] [place] LABCLIA [id number] [place] [address] [place] Monocytes/100 WBC (Bld) 6.0 % Normal [facility] Comment on above: Order Comment: Speci men Type: BLOOD SPECIMENOrdering Facility: [facility] Address: [address] [place] [address] Performed By: #### 5 7021-8 ####[facility] [place] LABCLIA [id number] [place] [address] [place] Neutrophils (Bld) [#/Vol] 8.13 10*3/uL High 1.45-7.50 [facility] Comment on above: Order Comment: Speci men Type: BLOOD SPECIMENOrdering Facility: [facility] Address: [address] [place] [address] Performed By: #### 5 7021-8 ####[facility] [place] LABCLIA [id number] [place] [address] [place] Neutrophils/100 WBC (Bld) 69.0 % Normal [facility] Comment on above: Order Comment: Speci men Type: BLOOD SPECIMENOrdering Facility: [facility] Address: [address] [place] [address] Performed By: #### 5 7021-8 ####[facility] [place] LABCLIA [id number] [place] [address] [place] Platelet mean volume (Bld) [Entitic vol] 9.4 fL Normal 9.0-12.7 [facility] Comment on above: Order Comment: Speci men Type: BLOOD SPECIMENOrdering Facility: [facility] Address: [address] [place] [address] Performed By: #### 5 7021-8 ####[facility] [place] LABCLIA [id number] [place] [address] [place] Platelets (Bld) [#/Vol] 332 10*3/uL Normal 150-400 [facility] Comment on above: Order Comment: Speci men Type: BLOOD SPECIMENOrdering Facility: [facility] Address: [address] [place] [address] Performed By: #### 5 7021-8 ####[facility] LABIA [id number] [place] [id number] [facility] RBC (Bld) [#/Vol] 4.43 10*6/uL Normal 3.90-5.20 [facility] Comment on above: Order Comment: Speci men Type: BLOOD SPECIMENOrdering Facility: [facility] Address: [address] [place] [address] Performed By: #### 5 7021-8 ####[facility] LABIA [id number] [place] [id number] [facility] WBC (Bld) [#/Vol] 11.78 10*3/uL High 3.70-11.00 [facility] Comment on above: Order Comment: Speci men Type: BLOOD SPECIMENOrdering Facility: [facility] Address: [address] [place] [address] Performed By: #### 5 7021-8 ####[facility] LABIA [id number] [address] Cardiolipin IgA Ser IA-aCnco n 12-31-2021 Cardiolipin IgA IA Qn (S) <9.0 Normal <12.0 [facility] Comment on above: Order Comment: Speci men Type: BLOOD SPECIMENOrdering Facility: [facility] Address: [address] [place] [address] Result Comment: <12 APL Negative 12-20 APL Indeterminate >20 APL Positive The following results were obtained with the [employer] QUANTA Lite VALENTE IgA III MAGDALENO. Cardiolipin IgA values obtained with the different manufacturers' assay methods may not be used interchangeably. The magnitude of the reported IgA levels cannot be correlated to an endpoint titer. Performed By: #### 5 076-5SHANNON CARDIG ####[facility] LABCLIA [id number] [facility] [id number] Centromere Ab IF Ql (S)on Centromere Ab Qn (S) <0.2 Normal <1.0 [facility] Comment on above: Order Comment: Speci men Type: BLOOD SPECIMEN [facility] Address: [address] [place] [address] Result Comment: Anti -centromere antibody is used as in aid in diagnosis of systemic sclerosis. Clinical correlation is required. Test Methodology: Multiplex flow immunoassay. Performed By: #### 5 1775-5, 04189-1, 09257-8, 56408-0, 96515-5, 71994-9 #### [facility] CLIA [id number] [address] [place] [address] CENTROMERE AB QUAL Negative Normal Negative [facility] Comment on above: Order Comment: Speci luz marina Type: BLOOD SPECIMEN [facility] Address: [address] [place] [address] Performed By: #### 5 1775-5, 16243-9, 12255-7, 66345-9, 61348-3, 81853-7 #### [facility] CLIA [id number] [address] [place] [address] [place] Chromatin Ab Qnon 12-31-2021 CHROMATIN AB QUAL Negative Normal Negative [facility] Comment on above: Order Comment: Speci men Type: BLOOD SPECIMEN [facility] Address: [address] [place] [address] Performed By: #### 5 1775-5, 20819-8, 23171-6, 06015-6, 76020-1, 54950-7 #### [facility] CLIA [id number] [address] [place] [address] [place] Chromatin Ab SerPl-aCncon Chromatin Ab Qn <0.2 Normal <1.0 [facility] Comment on above: Order Comment: Speci men Type: BLOOD SPECIMEN [facility] Address: [address] [place] [address] Result Comment: Test Methodology: Multiplex flow immunoassay. Performed By: #### 5 1775-5, 62962-0, 77841-6, 34468-9, 11421-3, 81020-3 #### [facility] CLIA [id number] [facility] [id number] [facility] Comprehensive metabolic 2000 panelon 12-31-2021 Albumin [Mass/Vol] 3.9 g/dL Normal 3.9-4.9 [facility] Comment on above: Order Comment: Speci men Type: BLOOD SPECIMENOrdering Facility: [facility] Address: [address] [place] [address] Performed By: #### 2 4323-8, 3016-3 ####[facility] LABCLIA [id number] [place] [address] [place] ALP [Catalytic activity/Vol] 70 U/L Normal 34-123 [facility] Comment on above: Order Comment: Speci men Type: BLOOD SPECIMENOrdering Facility: [facility] Address: [address] [place] [address] Performed By: #### 2 4323-8, 3016-3 ####[facility] LABCLIA [id number] [place] [address] [place] ALT With P-5'-P [Catalytic activity/Vol] 8 U/L Normal 7-38 [facility] Comment on above: Order Comment: Speci men Type: BLOOD SPECIMENOrdering Facility: [facility] Address: [address] [place], [place] [address] Performed By: #### 2 4323-8, 3016-3 ####[facility] [place] LABCLIA [id number] [place] [address] [place] Anion gap [Moles/Vol] 12 mmol/L Normal 9-18 [facility] Comment on above: Order Comment: Speci men Type: BLOOD SPECIMENOrdering Facility: [facility] Address: [address] Performed By: #### 2 4323-8, 3016-3 ####[facility] [place] LABCLIA [id number] [facility] [place] [address] [place] AST With P-5'-P [Catalytic activity/Vol] 11 U/L Low 13-35 [facility] Comment on above: Order Comment: Speci men Type: BLOOD SPECIMENOrdering Facility: [facility] Address: [address] [place] [address] Performed By: #### 2 4323-8, 3016-3 ####[facility] [place] LABCLIA [id number] [place] [address] [place] Bilirubin [Mass/Vol] 0.2 mg/dL Normal 0.2-1.3 [facility] Comment on above: Order Comment: Speci men Type: BLOOD SPECIMENOrdering Facility: [facility] Address: [address] [place] [address] Performed By: #### 2 4323-8, 3016-3 ####[facility] [place] LABCLIA [id number] [facility] [place] [address] [place] Calcium [Mass/Vol] 9.4 mg/dL Normal 8.5-10.2 [facility] Comment on above: Order Comment: Speci men Type: BLOOD SPECIMENOrdering Facility: [facility] Address: [address] [place], [place] [address] Performed By: #### 2 4323-8, 3016-3 ####[facility] [place] LABCLIA [id number] [facility] [place] [address] [place] Chloride [Moles/Vol] 101 mmol/L Normal 97-105 [facility] Comment on above: Order Comment: Speci men Type: BLOOD SPECIMENOrdering Facility: [facility] Address: [address] [place], [place] [address] Performed By: #### 2 4323-8, 3016-3 ####[facility] [place] LABCLIA [id number] [facility] [place] [address] [place] CO2 [Moles/Vol] 24 mmol/L Normal 22-30 [facility] Comment on above: Order Comment: Speci men Type: BLOOD SPECIMENOrdering Facility: [facility] Address: [address] [place] [address] Performed By: #### 2 4323-8, 3016-3 ####[facility] LABCLIA [id number] [place] [address] [place] [address] [facility] Creatinine [Mass/Vol] 0.54 mg/dL Low 0.58-0.96 [facility] Comment on above: Order Comment: Speci men Type: BLOOD SPECIMENOrdering Facility: [facility] Address: [address] [place] [address] Performed By: #### 2 4323-8, 3016-3 ####[facility] LABCLIA [id number] [place] [id number] [facility] ESTIMATED GLOMERULAR FILTRATION RATE 135 mL/min/1.73m??? Normal >=60 [facility] Comment on above: Order Comment: Speci men Type: BLOOD SPECIMENOrdering Facility: [facility] Address: [address] [place] [address] Result Comment: Marbella mated Glomerular Filtration Rate [...] GFR. Performed By: #### 2 4323-8, 3016-3 ####[facility] LABCLIA [id number] [place] [address] [place] Glucose [Mass/Vol] 94 mg/dL Normal 74-99 [facility] Comment on above: Order Comment: Speci men Type: BLOOD SPECIMENOrdering Facility: [facility] Address: [address] [place] [address] Result Comment: The [place] Diabetes Association (ADA) provides guidance for cutoff [...] Standards of Medical Care in Diabetes 2016, [place] Diabetes Association. Diabetes Care. 2016.39(Suppl 1). Performed By: #### 2 4323-8, 6-3 ####[facility] LABCLIA [id number] [place] [address] [place] Potassium [Moles/Vol] 3.2 mmol/L Low 3.7-5.1 [facility] Comment on above: Order Comment: Cherly raza Type: BLOOD SPECIMENOrdering Facility: [facility] Address: [address] Performed By: #### 2 4323-8, 3015-3 ####[facility] [employer] LABCLIA [id number] [place] [address] [place] Protein [Mass/Vol] 6.7 g/dL Normal 6.3-8.0 [facility] Comment on above: Order Comment: Cheryl raza Type: BLOOD SPECIMENOrdering Facility: [facility] Address: [address] Performed By: #### 2 4323-8, 6-3 ####[facility] [employer] LABCLIA [id number] [place] [address] [place] Sodium [Moles/Vol] 137 mmol/L Normal 136-144 [facility] Comment on above: Order Comment: Cheryl raza Type: BLOOD SPECIMENOrdering Facility: [facility] Address: [address] Performed By: #### 2 4323-8, 3016-3 ####[facility] LABCLIA [id number] [place] [address] [place] Urea nitrogen [Mass/Vol] 5 mg/dL Low 7-21 [facility] Comment on above: Order Comment: Speci men Type: BLOOD SPECIMENOrdering Facility: [facility] Address: [address] [place] [address] Performed By: #### 2 4323-8, 3016-3 ####[facility] LABCLIA [id number] [place] [address] [place] DNA ANTIBODY DS BLDon 2021 DNA ANTIBODY <12 Normal <30 [facility] Comment on above: Order Comment: Speci men Type: BLOOD SPECIMENOrdering Facility: [facility] Address: [address] [place] [address] Result Comment: Nega tive for ds DNA Anitbodies. <30 IU/mL Negative 30-74 IU/mL Equivocal >74 IU/mL Positive Performed By: #### B ETA2M, BETA2G, DNAAB ####[facility] LABCLIA [id number] [address] [place] Jo1 Ab Ser-aCncon 2021 Apple-1 extractable nuclear Ab Qn (S) <0.2 Normal <1.0 [facility] Comment on above: Order Comment: Speci men Type: BLOOD SPECIMENOrdering Facility: [facility] Address: [address] [place] [address] Performed By: #### 5 1775-5, 06122-0, 83658-6, 26696-9, 08391-3, 05661-7 ####[facility] LABCLIA [id number] [address] [place] AUDRA WHOLESALE BUYER Ab Ser-aCncon 2021 Ribonucleoprotein extractable nuclear Ab Qn (S) <0.2 Normal <1.0 [facility] Comment on above: Order Comment: Speci men Type: BLOOD SPECIMEN [facility] Address: [address] [place] [address] Performed By: #### 5 1775-5, 66441-4, 03362-6, 26248-1, 08574-3, 08479-7 #### [facility] CLIA [id number] [address] [place] [address] Order Comment: Speci men Type: BLOOD SPECIMENOrdering Facility: [facility] Address: [address] [place] [address] Performed By: #### 5 1775-5, 62515-1, 67312-8, 84471-8, 62147-1, 62098-7 ####[facility] LABCLIA [id number] [address] [place] SM IgG Ser-aCncon 2021 Cheng extractable nuclear IgG Qn (S) <0.2 Normal <1.0 [facility] Comment on above: Order Comment: Speci men Type: BLOOD SPECIMEN [facility] Address: [address] [place] [address] Performed By: #### 5 1775-5, 53007-9, 54206-8, 67065-7, 89569-6, 89637-0 #### [facility] CLIA [id number] [address] [place] [address] AUDRA SS-A Ab Ser-aCncon 12-31 Sjogrens syndrome-A extractable nuclear Ab Qn (S) <0.2 Normal <1.0 [facility] Comment on above: Order Comment: Speci men Type: BLOOD SPECIMENOrdering Facility: [facility] Address: [address] [place] [address] Result Comment: Test Methodology: Multiplex flow immunoassay. Performed By: #### 1 7791-5, 14667-0 ####[facility] LABCLIA [id number] [place] [address] [place] AUDRA SS-B Ab Ser-aCncon 12-31 Sjogrens syndrome-B extractable nuclear Ab Qn (S) <0.2 Normal <1.0 [facility] Comment on above: Order Comment: Speci men Type: BLOOD SPECIMENOrdering Facility: [facility] Address: [address] [place] [address] Result Comment: Anti -SSB (anti-La) antibody is used as an aid in diagnosis of a variety of systemic autoimmune diseases, especially for Sjogren's syndrome and systemic lupus erythematosus. Clinical correlation is required. Test Methodology: Multiplex flow immunoassay. Performed By: #### 1 7791-5, 39155-2 ####[facility] [id number] [address] [place] Apple-1 extractable nuclear Ab Qn (S)on 12-31-2021 APPLE 1 ANTIBODY QUAL Negative Normal Negative [facility] Comment on above: Order Comment: Speci men Type: BLOOD SPECIMENOrdering Facility: [facility] Address: [address] [place] [address] Result Comment: Anti -APPLE-1 antibody is used as an aid in diagnosis of polymyositis and dermatomyositis especially with pulmonary involvement. A negative result cannot rule out polymyositis or dermatomyositis. Clinical correlation is required. Test Methodology: Multiplex flow immunoassay. Performed By: #### 5 1775-5, 64544-7, 07442-7, 63417-3, 86018-4, 54230-0 ####[facility] LABIA [id number] [place] [address] [place] Ribonucleoprotein extractabl e nuclear Ab Qn (S)on 12-31-2021 ANTI-WHOLESALE BUYER QUAL Negative Normal Negative [facility] Comment on above: Order Comment: Speci men Type: BLOOD SPECIMENOrdering Facility: [facility] Address: [address] [place] [address] Performed By: #### 5 1775-5, 14654-0, 43050-6, 24922-6, 41414-9, 05302-7 ####[facility] LABCLIA [id number] [address] [place] RIBOSOMAL WHOLESALE BUYER QUAL Negative Normal Negative [facility] Comment on above: Order Comment: Cheryl raza Type: BLOOD SPECIMEN [facility] Address: [address] [place] [address] Result Comment: Anti -Ribosomal RNA (Ribosomal P) antibody is used as an aid in diagnosis of systemic autoimmune diseases especially systemic lupus erythematosus and mixed connective tissue disease. Cross-reactivity with Anti-cheng antibody is not uncommon. Clinical correlation is required. Test Methodology: Multiplex flow immunoassay. Performed By: #### 5 1775-5, 56199-4, 48742-1, 43936-2, 02064-2, 98460-1 #### [facility] CLIA [id number] [address] [place] [address] [place] SCL-70 extractable nuclear I gG IA Qn (S)on 12-31-2021 SCLERODERMA AB QUAL Negative Normal Negative [facility] Comment on above: Order Comment: Cheryl raza Type: BLOOD SPECIMEN [facility] Address: [address] [place] [address] Performed By: #### 5 1775-5, 98460-3, 23514-8, 42087-7, 11298-6, 60401-1 #### [facility] CLIA [id number] [address] [place] [address] OF [place] SCLERODERMA IGG AB <0.2 Normal <1.0 [facility] Comment on above: Order Comment: Cheryl raza Type: BLOOD SPECIMEN Ordering Facility: [facility] Address: [address] [place] [address] Result Comment: Scl- 70/Scleroderma antibody test is used as an aid in diagnosis of systemic sclerosis especially the diffuse cutaneous form. A negative result cannot rule out systemic sclerosis. The final interpretation should consider clinical picture and other test results such as anti-centromere antibody. Test Methodology: Multiplex flow immunoassay. Performed By: #### 5 1775-5, 11622-0, 24330-7, 58690-0, 03096-4, 46026-3 #### [facility] CLIA [id number] [address] [place] [address] OF [place] Sjogrens syndrome-A extracta ble nuclear Ab Qn (S)on 12-31-2021 SSA ANTIBODY QUAL Negative Normal Negative [facility] Comment on above: Order Comment: Speci men Type: BLOOD SPECIMENOrdering Facility: [facility] Address: [address] [place] [address] Performed By: #### 1 7791-5, 34730-3 ####[facility] [id number] [address] OF [place] Sjogrens syndrome-B extracta ble nuclear Ab Qn (S)on 12-31-2021 SSB ANTIBODY QUAL Negative Normal Negative [facility] Comment on above: Order Comment: Speci men Type: BLOOD SPECIMENOrdering Facility: [facility] Address: [address] [place] [address] Performed By: #### 1 7791-5, 68288-1 ####[facility] [id number] [address] Cheng extractable nuclear Ig G Qn (S)on 12-31-2021 SM ANTIBODY QUAL Negative Normal Negative [facility] Comment on above: Order Comment: Speci men Type: BLOOD SPECIMEN Ordering Facility: [facility] Address: [address] [place] [address] Result Comment: Anti -Sm (Cheng) antibody is used as an aid in diagnosis of systemic lupus erythematosus and its presence is associated with renal disease. A negative result cannot rule out systemic lupus erythematosus. Clinical correlation is required. Test Methodology: Multiplex flow immunoassay. Performed By: #### 5 1775-5, 72399-6, 63943-8, 25566-7, 93464-5, 70757-5 #### [facility] CLIA [id number] [address] [id number] [id number] [facility] OF [place] THYROID PEROXIDASE ANTIBODY BLOODon 12-31-2021 TPO Ab Qn [IU]/mL Normal 0.0-60.0 [facility] Comment on above: Order Comment: Speci men Type: BLOOD SPECIMENOrdering Facility: [facility] Address: [address] [place] [address] Result Comment: Thyr oid Peroxidase Antibody test is used as an aid in diagnosis of autoimmune thyroid disease. Clinical correlation is required. Performed By: #### M ICRO ####[facility]ORY[facility]IA [id number] [address] STATES [place] TSH SerPl-aCncon 12-31-2021 TSH Qn 2.190 m[IU]/L Normal 0.510-4.300 [facility] Comment on above: Order Comment: Spechenry raza Type: BLOOD SPECIMENOrdering Facility: [facility] Address: [address] [place] [address] Result Comment: If t he patient is , TSH reference range varies by gestational period: First Trimester (weeks 9-12): 0.180-2.990 mIU/L Second Trimester: 0.110-3.980 mIU/L Third Trimester: 0.480-4.710 mIU/L Cornelio Mcintosh et al. A Practical Approach for the Verifications and Determination of Site- and Trimester-Specific Reference Intervals for Thyroid Function tests in . Thyroid, 2019:29:3:412-420. Dorian Jones, et al. 2017 Guidelines of the [place] Thyroid Association for the Diagnosis and Management of Thyroid Disease during and the . Thyroid, 2017:27:3:315-389. Performed By: #### 2 4323-8, 3016-3 ####[facility] [id number] [address] STATES [place] Urinalysis complete panel (U )on 12-31-2021 Bilirubin Ql (U) Negative Normal Negative [facility] Comment on above: Order Comment: Speci men Type: URINE SPECIMEN Ordering Facility: [facility] Address: [address] [place] [address] Performed By: #### 2 4356-8 #### [facility] CLIA [id number] [address] [place] [address] [facility] Clarity (Unsp spec) Cloudy Abnormal Clear [facility] Comment on above: Order Comment: Speci men Type: URINE SPECIMEN Ordering Facility: [facility] Address: [address] [place] [address] Performed By: #### 2 4356-8 #### [facility] CLIA [id number] [address] Color (U) Yellow Normal Yellow [facility] Comment on above: Order Comment: Speci men Type: URINE SPECIMEN Ordering Facility: [facility] Address: [address] [place] [address] Performed By: #### 2 4356-8 #### [facility] CLIA [id number] [address] Epithelial cells LM.HPF (Urine sed) [#/Area] Few Normal [facility] Comment on above: Order Comment: Speci men Type: URINE SPECIMEN Ordering Facility: [facility] Address: [address] [place] [address] Performed By: #### 2 4356-8 #### [facility] CLIA [id number] [address] [place] [id number] [facility] OF [place] Glucose Test strip (U) [Mass/Vol] Negative Normal Negative [facility] Comment on above: Order Comment: Speci men Type: URINE SPECIMEN Ordering Facility: [facility] Address: [address] [place] [address] Performed By: #### 2 4356-8 #### [facility] CLIA [id number] [address] [place] [address] [facility] OF [place] Granular casts (Urine sed) [#/Area] 1-3 /LPF Abnormal 0 /LPF [facility] Comment on above: Order Comment: Speci men Type: URINE SPECIMEN Ordering Facility: [facility] Address: [address] [place] [address] Performed By: #### 2 4356-8 #### [facility] CLIA [id number] [address] [place] [address] [place] Hemoglobin Ql (U) Negative Normal Negative [facility] Comment on above: Order Comment: Speci men Type: URINE SPECIMEN Ordering Facility: [facility] Address: [address] [place] [address] Performed By: #### 2 4356-8 #### [facility] CLIA [id number] [address] STATES [place] Ketones Ql (U) Negative Normal Negative [facility] Comment on above: Order Comment: Speci men Type: URINE SPECIMEN Ordering Facility: [facility] Address: [address] [place] [address] Performed By: #### 2 4356-8 #### [facility] CLIA [id number] [address] [place] Leukocyte esterase Test strip Ql (U) Negative Normal Negative [facility] Comment on above: Order Comment: Speci men Type: URINE SPECIMEN Ordering Facility: [facility] Address: [address] [place] [address] Performed By: #### 2 4356-8 #### [facility] CLIA [id number] [address] [place] [address] [place] Nitrite Ql (U) Negative Normal Negative [facility] Comment on above: Order Comment: Speci men Type: URINE SPECIMEN Ordering Facility: [facility] Address: [address] [place] [address] Performed By: #### 2 4356-8 #### [facility] CLIA [id number] [address] [place] [address] [place] pH (U) 7.0 [pH] Normal 5.0-8.0 [facility] Comment on above: Order Comment: Speci men Type: URINE SPECIMEN Ordering Facility: [facility] Address: [address] [place] [address] Performed By: #### 2 4356-8 #### [facility] CLIA [id number] [address] Protein (U) [Mass/Vol] Negative Normal Negative [facility] Comment on above: Order Comment: Speci men Type: URINE SPECIMEN Ordering Facility: [facility] Address: [address] [place] [address] Performed By: #### 2 4356-8 #### [facility] CLIA [id number] [address] [place] [address] [place] RBC LM.HPF (Urine sed) [#/Area] 0-3 /HPF Normal 0-3 /HPF [facility] Comment on above: Order Comment: Speci men Type: URINE SPECIMEN Ordering Facility: [facility] Address: [address] [place] [address] Performed By: #### 2 4356-8 #### [facility] CLIA [id number] [address] [place] [address] OF [place] Specific gravity (U) [Rel density] 1.020 Normal 1.005-1.030 [facility] Comment on above: Order Comment: Speci men Type: URINE SPECIMEN Ordering Facility: [facility] Address: [address] [place] [address] Performed By: #### 2 4356-8 #### [facility] CLIA [id number] [address] [place] [id number] [facility] Urobilinogen Ql (U) 0.2 EU/dL Normal 0.2-1.0 EU/dL [facility] Comment on above: Order Comment: Speci men Type: URINE SPECIMEN Ordering Facility: [facility] Address: [address] [place] [address] Performed By: #### 2 4356-8 #### [facility] CLIA [id number] [address] [place] [address] [facility] [place] WBC LM.HPF (Urine sed) [#/Area] 0-5 /HPF Normal 0-5 /HPF [facility] Comment on above: Order Comment: Speci men Type: URINE SPECIMEN Ordering Facility: [facility] Address: [address] [place], [place] [address] [address] Performed By: #### 2 4356-8 #### [facility] CLIA [id number] [address] [place] [address] [facility] Progress Noteon 12-30-2021 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 Normal [facility] Glucose Challenge,1Hron 11-16 Glucose [Mass/Vol] 99 mg/dL Normal <140 [facility] Comment on above: Performed By: #### A RAMIRO NEV[place] #### [facility] Glucose tolerance, 1 houron 12-03-2021 Glucose [Mass/Vol] 99 mg/dL <140 [facility] Test Performed by [facility], [address] [place] [address] Rd. , [address] LAB [facility] Hemoglobin Evaluationon 10-20 Erythrocyte Cnt 4.79 Mill/uL Normal 3.80-5.10 [facility] Comment on above: Performed By: #### RAMIRO PRASAD #### [facility] Hemoglobin A 97.8 % Normal >96.0 [facility] Comment on above: Performed By: #### RAMIRO PRASAD #### [facility] Hemoglobin A2 2.2 % Normal 2.2-3.2 [facility] Comment on above: Performed By: #### RAMIRO PRASAD #### [facility] Hemoglobin F 0.0 % Normal <2.0 [facility] Comment on above: Performed By: #### RAMIRO PRASAD #### [facility] Interpretation see below Normal [facility] Comment on above: Result Comment: NORM [...] and Hemoglobinopathy Comprehensive is available (Test code 83624). Test Performed by [facility], [employer], [address] [place] [address] Salbador Narayan M.D., Ph.D., Director of Laboratories , CLIA [id number] Performed By: #### A RAMIRO [place] #### [facility] MAZ MCH 28.4 pg Normal 27.0-33.0 [facility] Comment on above: Performed By: #### RAMIRO PRASAD #### [facility] MCV 84.8 fL Normal 80.0-100.0 [facility] Comment on above: Performed By: #### RAMIRO PRASAD #### [facility] RDW 14.1 % Normal 11.0-15.0 [facility] Comment on above: Result Comment: Test Performed by [facility], [employer], [address] [place], [place] Salbador Narayan M.D., Ph.D., Director of Laboratories , CLIA [id number] Performed By: #### A JAMIN ABSGL #### [facility] MAZ HIV Ag - Abon 11-05-2021 HIV 1,2 Combo Antigen/Antibody Non-Reactive Normal Non-Reactive [facility] Comment on above: Result Comment: The specimen was non-reactive for HIV-1 and HIV-2 antibodies and p24 antigen using an FDA-cleared 4th generation HIV test. Based on this non-reactive screen result, further reflexive testing was not indicated and was, therefore, not performed. Performed By: #### A JAMIN ABSGL #### [facility] Rapid Plasma Reagin (RPR) W Reflex Quanton 11-05-2021 Rapid Plasma Reagin (RPR) Qual Non-Reactive Normal [facility] Comment on above: Result Comment: Non- Reactive Performed By: #### RAMIRO PRASAD #### [facility] ABO Rh Blood Typeon 11-04-19 ABO and Rh group Nom (Bld) ABO Group: A Rh, Gel: POS Normal [facility] Comment on above: Performed By: #### A MARY ABORH #### [facility] Antibody Screen Gelon 2021 Antibody Screen Gel Antibody Screen Gel: NEG Normal [facility] Comment on above: Performed By: #### A SUKUMAR HERNANDEZH #### [facility] Comp Metabolic Panelon 11-04 Calcium [Mass/Vol] 9.6 mg/dL Normal 8.4-10.4 [facility] Comment on above: Performed By: #### RAMIRO PRASAD #### [facility] ALP [Catalytic activity/Vol] 58 U/L Normal 38-126 [facility] Comment on above: Performed By: #### RAMIRO PRASAD #### [facility] ALT [Catalytic activity/Vol] 25 U/L Normal 0-34 [facility] Comment on above: Result Comment: The ALT test is performed by an updated assay method. Please note that the reference intervals have been changed and are now sex specific. Performed By: #### RAMIRO PRASAD #### [facility] Anion gap [Moles/Vol] 10 mmol/L Normal 3-13 [facility] Comment on above: Performed By: #### RAMIRO PRASAD #### [facility] AST [Catalytic activity/Vol] 35 U/L Normal 15-46 [facility] Comment on above: Performed By: #### RAMIRO PRASAD #### [facility] Bilirubin [Mass/Vol] 0.6 mg/dL Normal 0.2-1.3 [facility] Comment on above: Performed By: #### RAMIRO PRASAD #### [facility] CO2 [Moles/Vol] 24 mmol/L Normal 22-30 [facility] Comment on above: Performed By: #### RAMIRO PRASAD #### [facility] Creatinine [Mass/Vol] 0.57 mg/dL Normal 0.52-1.25 [facility] Comment on above: Performed By: #### RAMIRO PRASAD #### [facility] eGFR OTHER > 90.0 Normal >60 [facility] Comment on above: Result Comment: KDIG [...] secretion. Performed By: #### RAMIRO PRASAD #### [facility] GFR/1.73 sq M.predicted among blacks MDRD (S/P/Bld) [Vol rate/Area] mL/min/{1.73_m2} Normal >60 [facility] Comment on above: Performed By: #### RAMIRO PRASAD #### [facility] Glucose [Mass/Vol] 110 mg/dL High 70-100 [facility] Comment on above: Performed By: #### RAMIRO PRASAD #### [facility] Protein [Mass/Vol] 6.9 g/dL Normal 6.3-8.2 [facility] Comment on above: Performed By: #### RAMIRO PRASAD #### [facility] Urea nitrogen [Mass/Vol] 6 mg/dL Low 9-20 [facility] Comment on above: Performed By: #### RAMIRO PRASAD #### [facility] Potassium [Moles/Vol] 3.6 mmol/L Normal 3.5-5.1 [facility] Comment on above: Performed By: #### RAMIRO PRASAD #### [facility] Albumin [Mass/Vol] 4.3 g/dL Normal 3.5-5.0 [facility] Comment on above: Performed By: #### RAMIRO PRASAD #### [facility] Chloride [Moles/Vol] 102 mmol/L Normal 98-107 [facility] Comment on above: Performed By: #### RAMIRO PRASAD #### [facility] Sodium [Moles/Vol] 136 mmol/L Normal 135-145 [facility] Comment on above: Performed By: #### RAMIRO PRASAD #### [facility] Hemogram w/ Autodiffon 11-04 Abs Baso Cnt 0.1 10*3/uL Normal 0.0-0.2 [facility] Comment on above: Performed By: #### H GBFO #### The performing lab is in the report. #### HEMDF, CMP3, TSH5 #### [facility] [address] [place] [address] #### RPRBP, HEPC, HBSAG, HVAAO #### [address] #### RUBG #### [facility] [address] [facility] [place] [address] Abs Neutrophile Cnt 6.4 10*3/uL Normal 1.8-7.0 [facility] Comment on above: Performed By: #### H GBFO #### The performing lab is in the report. #### HEMDF, CMP3, TSH5 #### [facility] [address] [place] [address] #### RPRBP, HEPC, HBSAG, HVAAO #### [address] [address] #### RUBG #### [facility] [address] [facility] [place] [address] Basophils/100 WBC (Bld) 0.6 % Normal 0.0-2.0 [facility] Comment on above: Performed By: #### H GBFO #### The performing lab is in the report. #### HEMDF, CMP3, TSH5 #### [facility] [address] [place] [address] #### RPRBP, HEPC, HBSAG, HVAAO #### [address] #### RUBG #### [facility] [address] [place] [address] Eosinophils (Bld) [#/Vol] 0.1 10*3/uL Normal 0.0-0.5 [facility] Comment on above: Performed By: #### H GBFO #### The performing lab is in the report. #### HEMDF, CMP3, TSH5 #### [address] [address] #### RPRBP, HEPC, HBSAG, HVAAO #### [address] #### RUBG #### [facility] [address] [place] [address] Eosinophils/100 WBC (Bld) 1.0 % Normal 1.0-6.0 [facility] Comment on above: Performed By: #### H GBFO #### The performing lab is in the report. #### HEMDF, CMP3, TSH5 #### [address] [address] #### RPRBP, HEPC, HBSAG, HVAAO #### [address] #### RUBG #### [facility] [address] [place] [address] Erythrocyte distribution width (RBC) [Ratio] 14.2 % Normal 11.5-14.5 [facility] Comment on above: Performed By: #### H GBFO #### The performing lab is in the report. #### HEMDF, CMP3, TSH5 #### [address] [address] #### RPRBP, HEPC, HBSAG, HVAAO #### [address] #### RUBG #### [address] [place] [address] Granulocytes/100 WBC (Bld) 70.4 % Normal 40.0-80.0 [facility] Comment on above: Performed By: #### H GBFO #### The performing lab is in the report. #### HEMDF, CMP3, TSH5 #### [address] [address] #### RPRBP, HEPC, HBSAG, HVAAO #### [address] #### RUBG #### [address] [place] [address] Hematocrit (Bld) [Volume fraction] 40.3 % Normal 35.0-47.0 [facility] Comment on above: Performed By: #### H GBFO #### The performing lab is in the report. #### HEMDF, CMP3, TSH5 #### [address] [address] #### RPRBP, HEPC, HBSAG, HVAAO #### [address] #### RUBG #### [address] [place] [address] Hemoglobin (Bld) [Mass/Vol] 13.6 g/dL Normal 11.7-16.0 [facility] Comment on above: Performed By: #### H GBFO #### The performing lab is in the report. #### HEMDF, CMP3, TSH5 #### [address] [place] [address] #### RPRBP, HEPC, HBSAG, HVAAO #### [address] #### RUBG #### [facility] [address] [place] [address] Lymphocytes (Bld) [#/Vol] 2.2 10*3/uL Normal 1.0-4.3 [facility] Comment on above: Performed By: #### H GBFO #### The performing lab is in the report. #### HEMDF, CMP3, TSH5 #### [facility] [address] [place] [address] #### RPRBP, HEPC, HBSAG, HVAAO #### [address] #### RUBG #### [place] [address] [place] [address] Lymphocytes/100 WBC (Bld) 24.4 % Normal 20.0-40.0 [facility] Comment on above: Performed By: #### H GBFO #### The performing lab is in the report. #### HEMDF, CMP3, TSH5 #### [address] [address] #### RPRBP, HEPC, HBSAG, HVAAO #### [address] #### RUBG #### [address] [place] [address] MCH (RBC) [Entitic mass] 27.6 pg Normal 26.0-34.0 [facility] Comment on above: Performed By: #### H GBFO #### The performing lab is in the report. #### HEMDF, CMP3, TSH5 #### [address] [address] #### RPRBP, HEPC, HBSAG, HVAAO #### [address] #### RUBG #### [place] [address] [place] [address] MCHC 33.6 % Normal 32.0-36.0 [facility] Comment on above: Performed By: #### H GBFO #### The performing lab is in the report. #### HEMDF, CMP3, TSH5 #### [facility] [address] [place] [address] #### RPRBP, HEPC, HBSAG, HVAAO #### [address] #### RUBG #### [facility] [address] [place] [address] MCV (RBC) [Entitic vol] 82.0 fL Normal 79.0-98.0 [facility] Comment on above: Performed By: #### H GBFO #### The performing lab is in the report. #### HEMDF, CMP3, TSH5 #### [place] [address] #### RPRBP, HEPC, HBSAG, HVAAO #### [address] #### RUBG #### [address] [place] [address] Monocytes (Bld) [#/Vol] 0.3 10*3/uL Normal 0.0-0.8 [facility] Comment on above: Performed By: #### H GBFO #### The performing lab is in the report. #### HEMDF, CMP3, TSH5 #### [place] [address] #### RPRBP, HEPC, HBSAG, HVAAO #### [address] #### RUBG #### [address] [place] [address] Monocytes/100 WBC (Bld) 3.6 % Normal 2.0-10.0 [facility] Comment on above: Performed By: #### H GBFO #### The performing lab is in the report. #### HEMDF, CMP3, TSH5 #### [facility] [address] [place] [address] #### RPRBP, HEPC, HBSAG, HVAAO #### [address] #### RUBG #### [facility] [address] [place] [address] Platelet mean volume (Bld) [Entitic vol] 7.1 fL Low 7.4-10.4 [facility] Comment on above: Performed By: #### H GBFO #### The performing lab is in the report. #### HEMDF, CMP3, TSH5 #### [address] [place] [address] #### RPRBP, HEPC, HBSAG, HVAAO #### [address] #### RUBG #### [place] [address] [place] [address] Platelets (Bld) [#/Vol] 330 10*3/uL Normal 140-440 [facility] Comment on above: Performed By: #### H GBFO #### The performing lab is in the report. #### HEMDF, CMP3, TSH5 #### [address] [address] #### RPRBP, HEPC, HBSAG, HVAAO #### [address] #### RUBG #### [place] [address] [place] [address] RBC (Bld) [#/Vol] 4.91 10*6/uL Normal 3.80-5.20 [facility] Comment on above: Performed By: #### H GBFO #### The performing lab is in the report. #### HEMDF, CMP3, TSH5 #### [address] [place] [address] #### RPRBP, HEPC, HBSAG, HVAAO #### [address] #### RUBG #### [facility] [address] [place] [address] WBC (Bld) [#/Vol] 9.1 10*3/uL Normal 3.6-10.7 [facility] Comment on above: Performed By: #### H GBFO #### The performing lab is in the report. #### HEMDF, CMP3, TSH5 #### [facility] [address] [place] [address] #### RPRBP, HEPC, HBSAG, HVAAO #### [facility] [address] [place] #### RUBG #### [facility] [address] [place] [address] Hep B Surface Agon Hep B Surface Ag Not detected Normal Not Detected [facility] Comment on above: Performed By: #### RAMIRO PRASAD #### [facility] Hep C Antibodyon 11-04-2021 Hep C Antibody Not detected Normal Not Detected [facility] Comment on above: Result Comment: Patients with DETECTED Hepatitis C Ab results should have a new specimen submitted for supplemental testing with a Hepatitis C Quantitative RNA assay (viral load), if clinically indicated. Performed By: #### RAMIRO PRASAD #### [facility] Rubella Immune Statuson 10-19 Rubella Immune Status 15.1 Normal [facility] Comment on above: Result Comment: Inte rpretation Table: <10.0 Antibody NOT Detected >=10.0 Antibody Detected Performed By: #### H GBFO #### The performing lab is in the report. #### HEMDF, CMP3, TSH5 #### [facility] [address] [place] [address] #### RPRBP, HEPC, HBSAG, HVAAO #### [facility] [address], [place] #### RUBG #### [facility] [address] [place] [address] Thyroid Stim. Hormoneon 10-19 Thyroid Stim. Hormone 0.626 u[IU]/mL Normal 0.465-4.680 [facility] Comment on above: Performed By: #### RAMIRO PRASAD #### [facility] ABO Rh Blood Typeon 10-07-19 22 ABO and Rh group Nom (Bld) ABO Group: A Rh, Gel: POS Normal [facility] Comment on above: Performed By: #### RAMIRO PRASAD #### [facility] Antibody Screen Gelon 2021 Antibody Screen Gel Antibody Screen Gel: NEG Normal [facility] Comment on above: Performed By: #### RAMIRO PRASAD #### [facility] Comp Metabolic Panelon 10-07 ALT [Catalytic activity/Vol] 34 U/L Normal 0-34 [facility] Comment on above: Result Comment: The ALT test is performed by an updated assay method. Please note that the reference intervals have been changed and are now sex specific. Performed By: #### T SH5, CMP3, QWNT5, FT4M #### [facility] [address] [place] [address] Calcium [Mass/Vol] 10.0 mg/dL Normal 8.4-10.4 [facility] Comment on above: Performed By: #### T SH5, CMP3, QWNT5, FT4M #### [facility] [address] [place] [address] Glucose [Mass/Vol] 99 mg/dL Normal 70-100 [facility] Comment on above: Performed By: #### T SH5, CMP3, QWNT5, FT4M #### [facility] [address] [place] [address] Urea nitrogen [Mass/Vol] 6 mg/dL Low 9-20 [facility] Comment on above: Performed By: #### T SH5, CMP3, QWNT5, FT4M #### [facility] [address] [place] [address] ALP [Catalytic activity/Vol] 82 U/L Normal 38-126 [facility] Comment on above: Performed By: #### T SH5, CMP3, QWNT5, FT4M #### [facility] [address] [place] [address] Anion gap [Moles/Vol] 7 mmol/L Normal 3-13 [facility] Comment on above: Performed By: #### T SH5, CMP3, QWNT5, FT4M #### [facility] [address] [place] [address] AST [Catalytic activity/Vol] 34 U/L Normal 15-46 [facility] Comment on above: Performed By: #### T SH5, CMP3, QWNT5, FT4M #### [facility] [address] [place] [address] Bilirubin [Mass/Vol] 0.4 mg/dL Normal 0.2-1.3 [facility] Comment on above: Performed By: #### T SH5, CMP3, QWNT5, FT4M #### [facility] [address] [place] [address] CO2 [Moles/Vol] 27 mmol/L Normal 22-30 [facility] Comment on above: Performed By: #### T SH5, CMP3, QWNT5, FT4M #### [facility] [address] [place] [address] Creatinine [Mass/Vol] 0.63 mg/dL Normal 0.52-1.25 [facility] Comment on above: Performed By: #### T SH5, CMP3, QWNT5, FT4M #### [facility] [address] [place] [address] eGFR OTHER > 90.0 Normal >60 [facility] Comment on above: Result Comment: KDIG [...] #### T SH5, CMP3, QWNT5, FT4M #### [facility] [address] [place] [address] GFR/1.73 sq M.predicted among blacks MDRD (S/P/Bld) [Vol rate/Area] mL/min/{1.73_m2} Normal >60 [facility] Comment on above: Performed By: #### T SH5, CMP3, QWNT5, FT4M #### [facility] [address] [place] [address] Protein [Mass/Vol] 8.1 g/dL Normal 6.3-8.2 [facility] Comment on above: Performed By: #### T SH5, CMP3, QWNT5, FT4M #### [facility] [address] [place] [address] Potassium [Moles/Vol] 4.0 mmol/L Normal 3.5-5.1 [facility] Comment on above: Performed By: #### T SH5, CMP3, QWNT5, FT4M #### [facility] [address] [place] [address] Sodium [Moles/Vol] 139 mmol/L Normal 135-145 [facility] Comment on above: Performed By: #### T SH5, CMP3, QWNT5, FT4M #### [facility] [address] [place] [address] Albumin [Mass/Vol] 4.7 g/dL Normal 3.5-5.0 [facility] Comment on above: Performed By: #### T SH5, CMP3, QWNT5, FT4M #### [facility] [address] [place] [address] Chloride [Moles/Vol] 105 mmol/L Normal 98-107 [facility] Comment on above: Performed By: #### T SH5, CMP3, QWNT5, FT4M #### [facility] [address] [place] [address] Free T4on 10-07-2021 Free T4 [Mass/Vol] 1.43 ng/dL Normal 0.78-2.19 [facility] Comment on above: Performed By: #### T SH5, CMP3, QWNT5, FT4M #### [facility] [address] [place] [address] Thyroid Stim. Hormoneon 09-19 Thyroid Stim. Hormone 2.552 u[IU]/mL Normal 0.465-4.680 [facility] Comment on above: Performed By: #### T SH5, CMP3, QWNT5, FT4M #### [facility] [address] [place] [address] hCG Quantitativeon hCG Quantitative 205[address] m[IU]/mL Normal [facility] Comment on above: Result Comment: Fema [...] #### T SH5, CMP3, QWNT5, FT4M #### [facility] [address] [place] [address] Iron % Saturationon 03-10-20 20 Iron % Saturation 19 % Normal 15-57 [facility] Comment on above: Result Comment: LYDIA ECTED: Previous result = 23, verified at 17:07 on 02/05/20. Performed By: #### C RP3 #### [place] [id number] HLA-B27on 02-12-2020 HLA-B27 SEE BELOW Normal [facility] Comment on above: Result Comment: HLA- [...] developed and its performance characteristics determined by [facility]. The test has not been cleared or approved by the [place] FDA. However, FDA approval was not necessary since this lab is certified under CLIA for high complexity testing. Test performed by: [facility] [address], [place] [address] CLIA [id number] Performing Laboratory: Performed By: #### G FR #### [address] [address] CCP Antibody, IgGon 02-11-20 20 CCP Antibody, IgG <15 Normal <20 [facility] Comment on above: Result Comment: < [...] correlated to an endpoint titer. Performing Laboratory: [place] [address] Performed By: #### P 14 #### [place] [address] Complement C3on 02-11-2020 Complement C3 157 mg/dL Normal 86-166 [facility] Comment on above: Result Comment: Perf orming Laboratory: [place] [address] Performed By: #### P 14 #### [place] [address] Complement C4on 02-11-2020 Complement C4 34 mg/dL Normal 13-46 [facility] Comment on above: Result Comment: Perf orming Laboratory: [place] [address] Performed By: #### P 14 #### [place] [address] DS-DNA Ab w Confon 0 DS-DNA Ab w Conf SEE BELOW Normal [facility] Comment on above: Result Comment: DNA Antibody w/ Conf. <12 <30 IU/mL Negative for ds DNA Antibodies Negative: <30 IU/mL Equivocal: 30-74 IU/mL Positive: >74 IU/mL Performing Laboratory: [place] [address] Performed By: #### P 14 #### [place] [address] WHOLESALE BUYER Antibodyon 02-11-2020 WHOLESALE BUYER Antibody 0.2 AI Normal <1.0 [facility] Comment on above: Result Comment: Nega tive Negative: <1.0 AI Positive: >0.9 AI Test performed using the Multiplex Flow Immunoassay technology. Performing Laboratory: [place] [address] Performed By: #### P 14 #### [address] [address] Rheumatoid Factoron 02-11-20 20 Rheumatoid Factor <10 Normal <16 [facility] Comment on above: Result Comment: Perf orming Laboratory: [facility] [address] [place] [address] Performed By: #### P 14 #### [facility] [address] [place] [address] Sjogren Antibodieson 020 SSA Antibody <0.2 Normal <1.0 [facility] Comment on above: Result Comment: Nega tive Negative: <1.0 AI Positive: >0.9 AI Test performed using the Multiplex Flow Immunoassay technology. Performed By: #### P 14 #### [place] [address] SSB Antibody <0.2 Normal <1.0 [facility] Comment on above: Result Comment: Nega tive Negative: <1.0 AI Positive: >0.9 AI Test performed using the Multiplex Flow Immunoassay technology. Performing Laboratory: [place] [address] [place] [address] Performed By: #### P 14 #### [place] [address] Cheng Abs IgGon 02-11-2020 Cheng Abs IgG SEE BELOW Normal [facility] Comment on above: Result Comment: Sm A ntibody <0.2 <1.0 AI Negative Negative: <1.0 AI Positive: >0.9 AI Test performed using the Multiplex Flow Immunoassay technology. Performing Laboratory: [place] [address] [place] [address] Performed By: #### P 14 #### [place] [address] HIV Screenon 02-06-2020 HIV Screen Nonreactive Normal Nonreactive [facility] Comment on above: Result Comment: Alisha [...] result. Performed By: #### P 14 #### [facility] [address] [place] [address] RPRon 02-06-2020 Reagin Ab RPR Ql (S) Non-reactive Normal Nonreactive [facility] Comment on above: Performed By: #### C RP3 #### [facility] [address] [place] [address] Total 25-OH Vitamin Don - Total 25-OH Vitamin D 31.3 ng/mL Normal 30.0-100.0 [facility] Comment on above: Performed By: #### C RP3 #### [facility] [address] [place] [address] Urinalysis, reflexon 020 Appearance (U) 2+ (SLT CLOUDY) Normal [facility] Comment on above: Performed By: #### P 14 #### [place] [address] Bacteria LM.HPF (Urine sed) [#/Area] FEW Abnormal None [facility] Comment on above: Performed By: #### P 14 #### [facility] [address] [place] [address] Bilirubin Urine Negative Normal Negative [facility] Comment on above: Performed By: #### P 14 #### [facility] [address] [place] [address] Color (U) PALE RED Normal [facility] Comment on above: Performed By: #### P 14 #### [facility] [address] [place] [address] Ep Cells Urine 13-20 Abnormal 0-5 [facility] Comment on above: Performed By: #### P 14 #### [facility] [address] [place] [address] Glucose Ql (U) Negative Normal Negative [facility] Comment on above: Performed By: #### P 14 #### [facility] [address] [place] [address] Hemoglobin,Urine 3+ Abnormal Negative [facility] Comment on above: Performed By: #### P 14 #### [facility] [address] [place] [address] Ketone Urine Negative Normal Negative [facility] Comment on above: Performed By: #### P 14 #### [facility] [address] [place] [address] Leukocytes Esterase Negative Normal Negative [facility] Comment on above: Performed By: #### P 14 #### [facility] [address] [place] [address] Nitrites Urine Negative Normal Negative [facility] Comment on above: Performed By: #### P 14 #### [facility] [address] [place] [address] pH (U) 7.0 [pH] Normal 5.0-8.0 [facility] Comment on above: Performed By: #### P 14 #### [facility] [address] [place] [address] Protein (U) [Mass/Vol] 1+ Abnormal Negative [facility] Comment on above: Performed By: #### P 14 #### [facility] [address] [place] [address] RBC LM.HPF (Urine sed) [#/Area] 1-3 Normal 0-3 [facility] Comment on above: Performed By: #### P 14 #### [place] [address] Specific [place], Ur 1.010 Normal 1.005-1.030 [facility] Comment on above: Performed By: #### P 14 #### [place] [address] Urobilinogen,Ur 0.2 EU/dL Normal 0.2-1.0 [facility] Comment on above: Performed By: #### P 14 #### [facility] [address] [place] [address] WBC LM.HPF (Urine sed) [#/Area] 1-3 Normal 0-5 [facility] Comment on above: Performed By: #### P 14 #### [place] [address] CPKon 02-05-2020 CPK 111 U/L Normal 42-196 [facility] Comment on above: Performed By: #### L ESR #### [facility] [address] [place], [place] [address] CRPon 02-05-2020 CRP [Mass/Vol] 0.6 mg/dL Normal 0.0-0.8 [facility] Comment on above: Performed By: #### C RP3 #### [facility] [address] [place], [place] [address] Ferritinon 02-05-2020 Ferritin [Mass/Vol] 27.1 ng/mL Normal 14.7-205.1 [facility] Comment on above: Result Comment: Alisha [...] result. Performed By: #### C RP3 #### [facility] [address] [place] [address] Iron % Saturationon 02-05-20 20 Iron Serum 75 ug/dL Normal 41-186 [facility] Comment on above: Performed By: #### C RP3 #### [facility] [address] [place] [address] Total Iron Binding Cap. 399 ug/dL High 232-386 [facility] Comment on above: Performed By: #### C RP3 #### [facility] [address] [place], [place] [address] Sed Rateon 02-05-2020 Sed Rate 11 mm/hr Normal 0-20 [facility] Comment on above: Performed By: #### C RP3 #### [facility] [address] [place], [place] [address] XR FOOT 3V AP/LAT/OBL LTon 0 02-05-2020 [...] IMPRESSION: No radiographic abnormality of the feet Palliative Care Coordinator: [facility] Transcribe Date/Time: Feb 05 2020 1:59P Dictated by : VALENTINO MARKS MD This examination was interpreted and the report reviewed and electronically signed by: VALENTINO MARKS MD on Feb 05 2020 2:00PM EST Normal [facility] XR FOOT 3V AP/LAT/OBL RTon 0 [...] IMPRESSION: No radiographic abnormality of the feet Palliative Care Coordinator: [facility] Transcribe Date/Time: Feb 05 2020 1:59P Dictated by : VALENTINO MARKS MD This examination was interpreted and the report reviewed and electronically signed by: VALENTINO MARKS MD on Feb 05 2020 2:00PM EST Normal [facility] XR HAND 3V PA/LAT/OBL LTon 0 [...] ongoing since childhood, NKI, no surgeries. (accession [id number]), Pt. states joint pain, in feet, hands, lower back and bilateral hips, chronic since childhood, NKI, no surgeries, rule out RA. (accession [id number]) JESUS positive . TECHNIQUE: XR HAND 3V PA/LAT/OBL LT, XR HAND 3V PA/LAT/OBL RT Laterality: LEFT (accession [id number]), RIGHT (accession [id number]) Number of different views (projections): 3 views right hand, 3 views left hand. M: XB_1 COMPARISON: None. RESULT: FRACTURE: None. ALIGNMENT: Normal. JOINT SPACES: Preserved. SOFT TISSUES: Normal. OTHER FINDINGS: None. IMPRESSION: Normal bilateral hand radiographs. Palliative Care Coordinator: [facility] Transcribe Date/Time: Feb 05 2020 1:59P Dictated by : TASNEEM FIGUEROA MD This examination was interpreted and the report reviewed and electronically signed by: TASNEEM FIGUEROA MD on Feb 05 2020 2:03PM EST Normal [facility] XR HAND 3V PA/LAT/OBL RTon 0 [...] ongoing since childhood, NKI, no surgeries. (accession [id number]), Pt. states joint pain, in feet, hands, lower back and bilateral hips, chronic since childhood, NKI, no surgeries, rule out RA. (accession [id number]) JESUS positive . TECHNIQUE: XR HAND 3V PA/LAT/OBL LT, XR HAND 3V PA/LAT/OBL RT Laterality: LEFT (accession [id number]), RIGHT (accession [id number]) Number of different views (projections): 3 views right hand, 3 views left hand. M: XB_1 COMPARISON: None. RESULT: FRACTURE: None. ALIGNMENT: Normal. JOINT SPACES: Preserved. SOFT TISSUES: Normal. OTHER FINDINGS: None. IMPRESSION: Normal bilateral hand radiographs. Palliative Care Coordinator: [facility] Transcribe Date/Time: Feb 05 2020 1:59P Dictated by : TASNEEM FIGUEROA MD This examination was interpreted and the report reviewed and electronically signed by: TASNEEM FIGUEROA MD on Feb 05 2020 2:03PM EST Normal [facility] XR LUMBAR 2V AP/LATon 2019 XR [...] JTS 2V AP PELV/[place] with 3 (accession [id number]), 2 (accession [id number]) views on 3 (accession [id number]), 2 (accession [id number]) images MQ: XLS_1 COMPARISON: Hip x-rays 10/04/2019 [...] and assume there are 5 lumbar-type vertebrae. Palliative Care Coordinator: [facility] Transcribe Date/Time: Feb 05 2020 1:59P Dictated by : DORIAN HERNANDEZ MD This examination was interpreted and the report reviewed and electronically signed by: VALENTINO MARKS MD on Feb 05 2020 3:52PM EST Normal [facility] XR SI JTS 2V AP PELV/FERGUSO [...] JTS 2V AP PELV/[place] with 3 (accession [id number]), 2 (accession [id number]) views on 3 (accession [id number]), 2 (accession [id number]) images MQ: XLS_1 COMPARISON: Hip x-rays 10/04/2019 [...] and assume there are 5 lumbar-type vertebrae. Palliative Care Coordinator: [facility] Transcribe Date/Time: Feb 05 2020 1:59P Dictated by : DORIAN HERNANDEZ MD This examination was interpreted and the report reviewed and electronically signed by: VALENTINO MARKS MD on Feb 05 2020 3:52PM EST Normal [facility] JESUS by IFA Scrn w [employer] JESUS by IFA Scrn w Rfl[employer] SEE BELOW Normal [facility] Comment on above: Result Comment: JESUS Positive AB NEGAT Normal range : negative at <1:80 serum dilution. JESUS Titer 1:1280 AB NEGAT JESUS Pattern Nucleolar Performing Laboratory: [facility] [address] [place] [address] Performed By: #### L ESR #### [facility] [address] [place], [place] [address] Hepatitis A Totalon 11-03-19 20 Hepatitis A Total Negative Normal NEGAT [facility] Comment on above: Result Comment: Perf orming Laboratory: [facility] [address] [place] [address] Performed By: #### L ESR #### [place] [address] Basic Panelon 10-29-2019 Anion gap [Moles/Vol] 5 mmol/L Low 8-16 [facility] Comment on above: Performed By: #### L ESR #### [place] [address] Chloride [Moles/Vol] 106 mmol/L Normal 98-107 [facility] Comment on above: Performed By: #### L ESR #### [place] [address] Potassium [Moles/Vol] 3.7 mmol/L Normal 3.5-5.1 [facility] Comment on above: Performed By: #### L ESR #### [place] [address] Sodium [Moles/Vol] 135 mmol/L Low 136-145 [facility] Comment on above: Performed By: #### L ESR #### [place] [address] Creatinine [Mass/Vol] 0.64 mg/dL Normal 0.51-0.95 [facility] Comment on above: Result Comment: Use of this assay is not recommended for patients undergoing treatment with phenindione, due to the potential for falsely depressed results. Performed By: #### L ESR #### [place] [address] CO2 [Moles/Vol] 28 mmol/L Normal 21-32 [facility] Comment on above: Performed By: #### L ESR #### [place] [address] Calcium [Mass/Vol] 9.0 mg/dL Normal 8.5-10.1 [facility] Comment on above: Performed By: #### L ESR #### [facility] [address] [place] [address] Glucose [Mass/Vol] 79 mg/dL Normal 70-99 [facility] Comment on above: Performed By: #### L ESR #### [facility] [address] [place] [address] Urea nitrogen [Mass/Vol] 17 mg/dL Normal 7-18 [facility] Comment on above: Performed By: #### L ESR #### [place] [address] CRPon 10-29-2019 CRP [Mass/Vol] mg/L Normal 0.00-0.30 [facility] Comment on above: Performed By: #### L ESR #### [place] [address] Hepatitis Acute Panelon 10-19 HAV Ab IgM Negative Normal Negative [facility] Comment on above: Performed By: #### L ESR #### [place] [address] HB Core Ab IgM Negative Normal Negative [facility] Comment on above: Performed By: #### L ESR #### [place] [address] Hepatitis C Ab Negative Normal Negative [facility] Comment on above: Performed By: #### L ESR #### [place] [address] Hep.B Surface Ag Negative Normal Negative [facility] Comment on above: Performed By: #### L ESR #### [place] [address] MDRD GFRon 10-29-2019 GFR/1.73 sq M predicted among non-blacks MDRD (S/P/Bld) [Vol rate/Area] mL/min/{1.73_m2} Normal >60mL/min/1.73m 2 [facility] Comment on above: Result Comment: If t he patient is , multiply the result by 1.210. Performed By: #### L ESR #### [facility] [address] [place], [place] [address] Hemogram/Diffon 10-28-2019 Abs. Baso 0.03 thou/cmm Normal 0.00-0.08 [facility] Comment on above: Performed By: #### L FT4 #### [facility] [address] [place], [place] [address] Abs. [place] 0.63 thou/cmm Normal 0.20-1.00 [facility] Comment on above: Performed By: #### L FT4 #### [address] [address] Abs. Neut (ANC) 4.01 thou/cmm Normal 3.00-5.67 [facility] Comment on above: Performed By: #### L FT4 #### [place] [address] Basophils/100 WBC (Bld) 0.4 % Normal [facility] Comment on above: Performed By: #### L FT4 #### [address] [address] Eosinophils (Bld) [#/Vol] 0.15 thou/cmm Normal 0.00-0.41 [facility] Comment on above: Performed By: #### L FT4 #### [place] [address] Eosinophils/100 WBC (Bld) 1.9 % Normal [facility] Comment on above: Performed By: #### L FT4 #### [place] [address] Erythrocyte distribution width (RBC) [Ratio] 14.8 % Normal 11.5-15.9 [facility] Comment on above: Performed By: #### L FT4 #### [facility] [address] [place], [place] [address] Hematocrit (Bld) [Volume fraction] 42.0 % Normal 37.0-47.0 [facility] Comment on above: Performed By: #### L FT4 #### [address], [place] [address] Hemoglobin (Bld) [Mass/Vol] 13.0 g/dL Normal 12.0-16.0 [facility] Comment on above: Performed By: #### L FT4 #### [facility] [address] [place], [place] [address] Lymphocytes (Bld) [#/Vol] 3.18 thou/cmm Normal 1.50-3.65 [facility] Comment on above: Performed By: #### L FT4 #### [facility] [address] [place], [place] [address] Lymphocytes/100 WBC (Bld) 39.7 % Normal [facility] Comment on above: Performed By: #### L FT4 #### [facility] [address] [place], [place] [address] MCH (RBC) [Entitic mass] 27.3 pg Normal 27.0-31.0 [facility] Comment on above: Performed By: #### L FT4 #### [facility] [address] [place], [place] [address] MCHC (RBC) [Mass/Vol] 31.0 % Low 32.0-36.0 [facility] Comment on above: Performed By: #### L FT4 #### [facility] [address] [place], [place] [address] MCV (RBC) [Entitic vol] 88.2 fL Normal 81.0-99.0 [facility] Comment on above: Performed By: #### L FT4 #### [facility] [address] [place], [place] [address] Monocytes/100 WBC (Bld) 7.9 % Normal [facility] Comment on above: Performed By: #### L FT4 #### [facility] [address] [place], [place] [address] Platelet mean volume (Bld) [Entitic vol] 8.9 fL Normal 7.1-10.5 [facility] Comment on above: Performed By: #### L FT4 #### [address] [address] Platelets (Bld) [#/Vol] 426 thou/cmm High 150-400 [facility] Comment on above: Performed By: #### L FT4 #### [facility] [address] [place] [address] RBC (Bld) [#/Vol] 4.76 mil/cmm Normal 4.20-5.40 [facility] Comment on above: Performed By: #### L FT4 #### [place] [address] Seg Neutrophil 50.1 % Normal [facility] Comment on above: Performed By: #### L FT4 #### [facility] [address] [place] [address] WBC (Bld) [#/Vol] 8.0 thou/cmm Normal 4.8-10.5 [facility] Comment on above: Performed By: #### L FT4 #### [place] [address] Hepatic Panelon 10-28-2019 Albumin [Mass/Vol] 3.7 g/dL Normal 3.4-5.0 [facility] Comment on above: Performed By: #### L ESR #### [place] [address] Albumin/Globulin [Mass ratio] 0.9 {ratio} Normal 0.9-2.4 [facility] Comment on above: Performed By: #### L ESR #### [place] [address] ALP [Catalytic activity/Vol] 93 U/L Normal 50-130 [facility] Comment on above: Performed By: #### L ESR #### [place] [address] ALT-SGPT Blood 77 U/L High 14-63 [facility] Comment on above: Performed By: #### L ESR #### [place] [address] AST-SGOT Blood 20 U/L Normal 15-37 [facility] Comment on above: Performed By: #### L ESR #### [place] [address] Bilirubin Ql (U) 0.6 mg/dL Normal 0.2-1.0 [facility] Comment on above: Performed By: #### L ESR #### [facility] [address] [place] [address] Bilirubin.direct [Mass/Vol] 0.29 mg/dL High 0.00-0.20 [facility] Comment on above: Performed By: #### L ESR #### [facility] [address] [place] [address] Bilirubin.indirect (Body fld) [Mass/Vol] 0.4 mg/dL Normal 0.0-0.7 [facility] Comment on above: Performed By: #### L ESR #### [facility] [address] [place] [address] Protein [Mass/Vol] 7.7 g/dL Normal 6.4-8.2 [facility] Comment on above: Performed By: #### L ESR #### [facility] [address] [place] [address] [place] 10-28-2019 Monotest Positive Abnormal Negative [facility] Comment on above: Performed By: #### L FT4 #### [place] [address] CT NECK SOFT TISSUE W IVCONo n 10-14-2019 CT NECK SOFT TISSUE W IVCON * * *Final Report* * * DATE OF EXAM: Oct 14 2019 1:30PM [facility] 0013 - CT NECK SOFT TISSUE W [...] amalgam. Parotid and submandibular spaces are normal. 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 Infrahyoid Neck: Hypopharynx, [...] sinus findings, most likely chronic. Correlate clinically. Palliative Care Coordinator: SHAN Transcribe Date/Time: Oct 14 2019 1:34P Dictated by : LESTER SAUCEDA MD This examination was interpreted and the report reviewed and electronically signed by: LESTER SAUCEDA MD on Oct 14 2019 1:44PM EST Normal [facility] Comprehensive Panelon 2019 Anion gap [Moles/Vol] 12 mmol/L Normal 8-20 [facility] Comment on above: Performed By: #### L FT4 #### [address] [address] Chloride [Moles/Vol] 104 mmol/L Normal 98-109 [facility] Comment on above: Result Comment: Test ing performed on an Silver i-STAT. Performed By: #### L FT4 #### [facility] [address] [place] [address] Potassium [Moles/Vol] 5.7 mmol/L High 3.5-4.9 [facility] Comment on above: Result Comment: SPEC IMEN SLIGHTLY HEMOLYZED Testing performed on an Silver i-STAT. Performed By: #### L FT4 #### [facility] [address] [place] [address] Sodium [Moles/Vol] 134 mmol/L Low 138-146 [facility] Comment on above: Result Comment: Test ing performed on an Silver i-STAT. Performed By: #### L FT4 #### [facility] [address] [place] [address] Albumin [Mass/Vol] 3.3 g/dL Low 3.4-5.0 [facility] Comment on above: Performed By: #### L FT4 #### [facility] [address] [place] [address] ALP [Catalytic activity/Vol] 304 U/L High 50-130 [facility] Comment on above: Performed By: #### L FT4 #### [facility] [address] [place] [address] ALT-SGPT Blood 111 U/L High 14-63 [facility] Comment on above: Performed By: #### L FT4 #### [facility] [address] [place] [address] AST-SGOT Blood 69 U/L High 15-37 [facility] Comment on above: Performed By: #### L FT4 #### [facility] [address] [place] [address] Bilirubin Ql (U) 1.2 mg/dL High 0.2-1.0 [facility] Comment on above: Performed By: #### L FT4 #### [facility] [address] [place] [address] Calcium [Mass/Vol] 9.2 mg/dL Normal 8.5-10.1 [facility] Comment on above: Performed By: #### L FT4 #### [facility] [address] [place], [place] [address] CO2 Blood 24 mEq/L Normal 21-32 [facility] Comment on above: Performed By: #### L FT4 #### [facility] [address] [place], [place] [address] Creatinine [Mass/Vol] 0.73 mg/dL Normal 0.51-0.95 [facility] Comment on above: Result Comment: Use of this assay is not recommended for patients undergoing treatment with phenindione, due to the potential for falsely depressed results. Performed By: #### L FT4 #### [facility] [address] [place], [place] [address] Glucose [Mass/Vol] 79 mg/dL Normal 70-99 [facility] Comment on above: Performed By: #### L FT4 #### [facility] [address] [place], [place] [address] Protein [Mass/Vol] 8.3 g/dL High 6.4-8.2 [facility] Comment on above: Performed By: #### L FT4 #### [facility] [address] [place], [place] [address] Urea nitrogen [Mass/Vol] 7 mg/dL Normal 7-18 [facility] Comment on above: Performed By: #### L FT4 #### [facility] [address] [place], [place] [address] Urea nitrogen/Creatinine [Mass ratio] 10 mg/mg Normal 10-20 [facility] Comment on above: Performed By: #### L FT4 #### [facility] [address] [place], [place] [address] Hemogram/Manual Diffon 10-14 Abs. Baso 0.00 thou/cmm Normal 0.00-0.08 [facility] Comment on above: Performed By: #### L FT4 #### [facility] [address] [place], [place] [address] Abs. Eosin 0.00 thou/cmm Normal 0.00-0.41 [facility] Comment on above: Performed By: #### L FT4 #### [facility] [address] [place] [address] Abs. Lymph 7.53 thou/cmm High 1.50-3.65 [facility] Comment on above: Performed By: #### L FT4 #### [facility] [address] [place] [address] Abs. [place] 0.21 thou/cmm Normal 0.20-1.00 [facility] Comment on above: Performed By: #### L FT4 #### [facility] [address] [place] [address] Abs. Neut (ANC) 2.86 thou/cmm Low 3.00-5.67 [facility] Comment on above: Performed By: #### L FT4 #### [facility] [address] [place] [address] Atypical Lymph 31.0 % Normal [facility] Comment on above: Performed By: #### L FT4 #### [facility] [address] [place] [address] Basophil 0.0 % Normal [facility] Comment on above: Performed By: #### L FT4 #### [facility] [address] [place] [address] Eosinophil 0.0 % Normal [facility] Comment on above: Performed By: #### L FT4 #### [facility] [address] [place] [address] Lymphocyte 40.0 % Normal [facility] Comment on above: Performed By: #### L FT4 #### [facility] [address] [place] [address] Monocyte 2.0 % Normal [facility] Comment on above: Performed By: #### L FT4 #### [facility] [address] [place] [address] Platelets (Bld) [#/Vol] Normal Normal [facility] Comment on above: Performed By: #### L FT4 #### [facility] [address] [place] [address] RBC morphology finding Nom (Bld) Normal Normal [facility] Comment on above: Performed By: #### L FT4 #### [facility] [address] [place] [address] Seg Neutrophil 27.0 % Normal [facility] Comment on above: Performed By: #### L FT4 #### [facility] [address] [place] [address] Diff Type Manual Diff Normal [facility] Comment on above: Performed By: #### L FT4 #### [facility] [address] [place] [address] Erythrocyte distribution width (RBC) [Ratio] 15.2 % Normal 11.5-15.9 [facility] Comment on above: Performed By: #### L FT4 #### [facility] [address] [place] [address] Hematocrit (Bld) [Volume fraction] 42.7 % Normal 37.0-47.0 [facility] Comment on above: Performed By: #### L FT4 #### [facility] [address] [place] [address] Hemoglobin (Bld) [Mass/Vol] 13.3 g/dL Normal 12.0-16.0 [facility] Comment on above: Performed By: #### L FT4 #### [facility] [address] [place] [address] MCH (RBC) [Entitic mass] 26.8 pg Low 27.0-31.0 [facility] Comment on above: Performed By: #### L FT4 #### [facility] [address] [place] [address] MCHC (RBC) [Mass/Vol] 31.1 % Low 32.0-36.0 [facility] Comment on above: Performed By: #### L FT4 #### [facility] [address] [place] [address] MCV (RBC) [Entitic vol] 86.1 fl Normal 81.0-99.0 [facility] Comment on above: Performed By: #### L FT4 #### [place] [address] Platelet mean volume (Bld) [Entitic vol] 10.4 fl Normal 7.1-10.5 [facility] Comment on above: Performed By: #### L FT4 #### [facility] [address] [place], [place] [address] Platelets (Bld) [#/Vol] 239 thou/cmm Normal 150-400 [facility] Comment on above: Performed By: #### L FT4 #### [facility] [address] [place], [place] [address] RBC (Bld) [#/Vol] 4.96 mil/cmm Normal 4.20-5.40 [facility] Comment on above: Performed By: #### L FT4 #### [facility] [address] [place], [place] [address] WBC (Bld) [#/Vol] 10.6 thou/cmm High 4.8-10.5 [facility] Comment on above: Performed By: #### L FT4 #### [facility] [address] [place] [address] MDRD eGFRon 10-14-2019 GFR/1.73 sq M predicted among non-blacks MDRD (S/P/Bld) [Vol rate/Area] mL/min/{1.73_m2} Normal >60mL/min/1.73m 2 [facility] Comment on above: Result Comment: If t he patient is , multiply the result by 1.210. Performed By: #### L FT4 #### [facility] [address] [place] [address] Misc. Teston 10-14-2019 Misc. Test Result SEE BELOW Normal [facility] Comment on above: Result Comment: Handley [...] erythematosis. Test developed and characteristics determined by [employer]. See Compliance Statement D: [employer]/ Performed by [employer] [facility], [address] [place] [address] [email or web address], Austin Lujan MD, Lab. Director Performing Laboratory: Performed By: #### G OX ####[facility] [place], [place] [address] Potassium Bloodon 10-14-2019 Potassium [Moles/Vol] 4.1 mmol/L Normal 3.5-4.9 [facility] Comment on above: Result Comment: Test ing performed on an [employer]Care i-STAT. Performed By: #### L FT4 #### [facility] [address] [place], [place] [address] Hepatitis A Totalon 10-11-19 20 Hepatitis A Total Positive Abnormal NEGAT [facility] Comment on above: Result Comment: Perf orming Laboratory: [facility] [employer] [address] [place] [address] Performed By: #### L FT4 #### [address] [address] IgEon 10-11-2019 IgE Qn 28.1 kU/L Normal <114 [facility] Comment on above: Result Comment: Perf orming Laboratory: [facility] [address] [place] [address] Performed By: #### L FT4 #### [address] [address] IgG Subclass/Totalon 020 IgG Subclass/Total SEE BELOW Normal [facility] Comment on above: Result Comment: IgG Subclass 1 856.5 382.4-928.6 mg/dL IgG Subclass 2 490.0 241.8-700.3 mg/dL IgG Subclass 3 114.1 21.8-176.1 mg/dL IgG Subclass 4 120.4 H 3.9-86.4 mg/dL IgG 1590 H 717-1411 mg/dL Performing Laboratory: [facility] [employer] [address] [place] [address] Performed By: #### L FT4 #### [facility] [address] [place], [place] [address] Total Complementon 0 Total Complement 73.1 U/mL Normal 41.7-95.1 [facility] Comment on above: Result Comment: Perf orming Laboratory: [facility] [address] [place] [address] Performed By: #### L TSH #### [facility] [address] [place], [place] [address] Comprehensive Panelon 2019 ALP [Catalytic activity/Vol] 318 U/L High 45-117 [facility] Comment on above: Performed By: #### L TSH #### [facility] [address] [place], [place] [address] Protein [Mass/Vol] 7.4 g/dL Normal 6.4-8.2 [facility] Comment on above: Performed By: #### L TSH #### [address] [address] Creatinine [Mass/Vol] 0.83 mg/dL Normal 0.51-0.95 [facility] Comment on above: Result Comment: Use of this assay is not recommended for patients undergoing treatment with phenindione, due to the potential for falsely depressed results. Performed By: #### L TSH #### [facility] [address] [place], [place] [address] ALT [Catalytic activity/Vol] 251 U/L High 12-78 [facility] Comment on above: Performed By: #### L TSH #### [address] [address] Bilirubin [Mass/Vol] 2.9 mg/dL High 0.2-1.0 [facility] Comment on above: Performed By: #### L TSH #### [facility] [address] [place], [place] [address] AST [Catalytic activity/Vol] 169 U/L High 15-37 [facility] Comment on above: Performed By: #### L TSH #### [address] [address] Albumin [Mass/Vol] 3.1 g/dL Low 3.4-5.0 [facility] Comment on above: Performed By: #### L TSH #### [facility] [address] [place], [place] [address] Anion gap [Moles/Vol] 9 mmol/L Normal 8-16 [facility] Comment on above: Performed By: #### L TSH #### [facility] [address] [place], [place] [address] CO2 [Moles/Vol] 27 mmol/L Normal 21-32 [facility] Comment on above: Performed By: #### L TSH #### [facility] [address] [place], [place] [address] Glucose [Mass/Vol] 97 mg/dL Normal 70-99 [facility] Comment on above: Performed By: #### L TSH #### [facility] [address] [place], [place] [address] Calcium [Mass/Vol] 8.8 mg/dL Normal 8.5-10.1 [facility] Comment on above: Performed By: #### L TSH #### [facility] [address] [place], [place] [address] Urea nitrogen [Mass/Vol] 5 mg/dL Low 7-18 [facility] Comment on above: Performed By: #### L TSH #### [facility] [address] [place], [place] [address] Chloride [Moles/Vol] 103 mmol/L Normal 98-107 [facility] Comment on above: Performed By: #### L TSH #### [facility] [address] [place], [place] [address] Potassium [Moles/Vol] 3.9 mmol/L Normal 3.5-5.1 [facility] Comment on above: Performed By: #### L TSH #### [facility] [address] [place], [place] [address] Sodium [Moles/Vol] 135 mmol/L Low 136-145 [facility] Comment on above: Performed By: #### L TSH #### [facility] [address] [place], [place] [address] MDRD GFRon 10-10-2019 GFR/1.73 sq M predicted among non-blacks MDRD (S/P/Bld) [Vol rate/Area] mL/min/{1.73_m2} Normal >60mL/min/1.73m 2 [facility] Comment on above: Result Comment: If t he patient is , multiply the result by 1.210. Performed By: #### L TSH #### [facility] [address] [place] [address] Acetaminophenon 10-09-2019 Acetaminophen [Mass/Vol] <1 Low 10-30 [facility] Comment on above: Performed By: #### L TSH #### [place] [address] Alcohol, Bloodon 10-09-2019 Alcohol, Blood <10 Normal <10 [facility] Comment on above: Performed By: #### L TSH #### [place] [address] Comprehensive Panelon 2019 Albumin [Mass/Vol] 3.3 g/dL Low 3.4-5.0 [facility] Comment on above: Performed By: #### L CBCD #### [place] [address] ALP [Catalytic activity/Vol] 306 U/L High 50-130 [facility] Comment on above: Performed By: #### L CBCD #### [place] [address] ALT-SGPT Blood 296 U/L High 14-63 [facility] Comment on above: Performed By: #### L CBCD #### [place] [address] Anion gap [Moles/Vol] 13 mmol/L Normal 8-20 [facility] Comment on above: Performed By: #### L CBCD #### [place] [address] AST-SGOT Blood 209 U/L High 15-37 [facility] Comment on above: Performed By: #### L CBCD #### [place] [address] Bilirubin Ql (U) 4.7 mg/dL High 0.2-1.0 [facility] Comment on above: Performed By: #### L CBCD #### [facility] [address] [place], [place] [address] Calcium [Mass/Vol] 8.8 mg/dL Normal 8.5-10.1 [facility] Comment on above: Performed By: #### L CBCD #### [facility] [address] [place], [place] [address] CO2 Blood 29 mEq/L Normal 21-32 [facility] Comment on above: Performed By: #### L CBCD #### [facility] [address] [place], [place] [address] Creatinine [Mass/Vol] 0.87 mg/dL Normal 0.51-0.95 [facility] Comment on above: Result Comment: Use of this assay is not recommended for patients undergoing treatment with phenindione, due to the potential for falsely depressed results. Performed By: #### L CBCD #### [facility] [address] [place], [place] [address] Glucose [Mass/Vol] 101 mg/dL High 70-99 [facility] Comment on above: Performed By: #### L CBCD #### [facility] [address] [place], [place] [address] Protein [Mass/Vol] 7.6 g/dL Normal 6.4-8.2 [facility] Comment on above: Performed By: #### L CBCD #### [address] [address] Urea nitrogen [Mass/Vol] 7 mg/dL Normal 7-18 [facility] Comment on above: Performed By: #### L CBCD #### [facility] [address] [place], [place] [address] Urea nitrogen/Creatinine [Mass ratio] 8 mg/mg Low 10-20 [facility] Comment on above: Performed By: #### L CBCD #### [address] [address] Chloride [Moles/Vol] 98 mmol/L Normal 98-109 [facility] Comment on above: Result Comment: Test ing performed on an [employer] i-STAT. Performed By: #### L CBCD #### [facility] [address] [place] [address] Potassium [Moles/Vol] 3.2 mmol/L Low 3.5-4.9 [facility] Comment on above: Result Comment: Test ing performed on an Silver i-STAT. Performed By: #### L CBCD #### [place] [address] Sodium [Moles/Vol] 137 mmol/L Low 138-146 [facility] Comment on above: Result Comment: Test ing performed on an Silver i-STAT. Performed By: #### L CBCD #### [place] [address] Cult Urineon 10-09-2019 Cult Urine Test performed at [facility] ORGANISM: Mixed Ck (ID: 10) 50,000-99,000 CFU/ml Three or more organisms, no one type predominant, suggesting contamination during collection. Recollect if clincally indicated. Normal [facility] Comment on above: Performed By: #### L TSH #### [place] [address] HIV Screenon 10-09-2019 HIV Screen Nonreactive Normal Nonreactive [facility] Comment on above: Performed By: #### L CBCD #### [place] [address] Hemogram/Manual Diffon 10-09 Abs. Baso 0.00 thou/cmm Normal 0.00-0.08 [facility] Comment on above: Performed By: #### L CBCD #### [place] [address] Abs. Eosin 0.21 thou/cmm Normal 0.00-0.41 [facility] Comment on above: Performed By: #### L CBCD #### [place] [address] Abs. Lymph 8.72 thou/cmm High 1.50-3.65 [facility] Comment on above: Performed By: #### L CBCD #### [address] [address] Abs. [place] 0.42 thou/cmm Normal 0.20-1.00 [facility] Comment on above: Performed By: #### L CBCD #### [facility] [address] [place] [address] Abs. Neut (ANC) 1.15 thou/cmm Low 3.00-5.67 [facility] Comment on above: Performed By: #### L CBCD #### [place] [address] Anisocytosis Ql (Bld) Few Normal [facility] Comment on above: Performed By: #### L CBCD #### [place] [address] Atypical Lymph 30.0 % Normal [facility] Comment on above: Performed By: #### L CBCD #### [place] [address] Basophil 0.0 % Normal [facility] Comment on above: Performed By: #### L CBCD #### [place] [address] Eosinophil 2.0 % Normal [facility] Comment on above: Performed By: #### L CBCD #### [place] [address] Lymphocyte 53.0 % Normal [facility] Comment on above: Performed By: #### L CBCD #### [place] [address] Monocyte 4.0 % Normal [facility] Comment on above: Performed By: #### L CBCD #### [place] [address] Platelets (Bld) [#/Vol] Low Normal [facility] Comment on above: Performed By: #### L CBCD #### [place] [address] Seg Neutrophil 11.0 % Normal [facility] Comment on above: Performed By: #### L CBCD #### [place] [address] Diff Type Manual Diff Normal [facility] Comment on above: Performed By: #### L CBCD #### [facility] [address] [place], [place] [address] Erythrocyte distribution width (RBC) [Ratio] 14.3 % Normal 11.5-15.9 [facility] Comment on above: Performed By: #### L CBCD #### [place] [address] Hematocrit (Bld) [Volume fraction] 42.2 % Normal 37.0-47.0 [facility] Comment on above: Performed By: #### L CBCD #### [place] [address] Hemoglobin (Bld) [Mass/Vol] 13.4 g/dL Normal 12.0-16.0 [facility] Comment on above: Performed By: #### L CBCD #### [place] [address] MCH (RBC) [Entitic mass] 27.1 pg Normal 27.0-31.0 [facility] Comment on above: Performed By: #### L CBCD #### [place] [address] MCHC (RBC) [Mass/Vol] 31.8 % Low 32.0-36.0 [facility] Comment on above: Performed By: #### L CBCD #### [place] [address] MCV (RBC) [Entitic vol] 85.4 fl Normal 81.0-99.0 [facility] Comment on above: Performed By: #### L CBCD #### [place] [address] Platelet mean volume (Bld) [Entitic vol] 10.6 fl High 7.1-10.5 [facility] Comment on above: Performed By: #### L CBCD #### [place] [address] Platelets (Bld) [#/Vol] 128 thou/cmm Low 150-400 [facility] Comment on above: Performed By: #### L CBCD #### [facility] [address] [place] [address] RBC (Bld) [#/Vol] 4.94 mil/cmm Normal 4.20-5.40 [facility] Comment on above: Performed By: #### L CBCD #### [facility] [address] [place] [address] WBC (Bld) [#/Vol] 10.5 thou/cmm Normal 4.8-10.5 [facility] Comment on above: Performed By: #### L CBCD #### [place] [address] Hep. B Surface Agon 10-09-19 20 Hep.B Surface Ag Negative Normal Negative [facility] Comment on above: Performed By: #### L CBCD #### [place] [address] Hepatitis C Antibodyon 10-09 Hepatitis C Ab Negative Normal Negative [facility] Comment on above: Performed By: #### L CBCD #### [place] [address] IgAon 10-09-2019 IgA [Mass/Vol] 244 mg/dL Normal 70-400 [facility] Comment on above: Performed By: #### I GA ####[place] [address] IgGon 10-09-2019 IgG [Mass/Vol] 1610 mg/dL High 700-1600 [facility] Comment on above: Performed By: #### I GG ####[place] [address] IgMon 10-09-2019 IgM [Mass/Vol] 298 mg/dL High 40-230 [facility] Comment on above: Performed By: #### I GM ####[place] [address] Lactic acidon 10-09-2019 Lactate [Moles/Vol] 1.7 mmol/L Normal 0.4-2.0 [facility] Comment on above: Performed By: #### L CBCD #### [place] [address] [place] [address] Lipase Bloodon 10-09-2019 Lipase Blood 127 U/L Normal 73-393 [facility] Comment on above: Performed By: #### L TSH #### [facility] [address] [place] [address] MDRD eGFRon 10-09-2019 GFR/1.73 sq M predicted among non-blacks MDRD (S/P/Bld) [Vol rate/Area] mL/min/{1.73_m2} Normal >60mL/min/1.73m 2 [facility] Comment on above: Result Comment: If t he patient is , multiply the result by 1.210. Performed By: #### L TSH #### [place] [address] Misc. Teston 10-09-2019 [facility] Order Code HIRAM Normal [facility] Comment on above: Performed By: #### G OX ####[place] [address] Test Name Mannose Binding Normal [facility] Comment on above: Performed By: #### G OX ####[place] [address] Monoteston 10-09-2019 Monotest Positive Abnormal Negative [facility] Comment on above: Performed By: #### L TSH #### [place] [address] Throat Rapid Grp A Strepon 0 10-09-2019 S. pyogenes Ag IA Ql (Unsp spec) see below Normal Negative [facility] Comment on above: Result Comment: Posi tive for group A Streptococcus antigen. Performed By: #### L CBCD #### [place] [address] US ABD RIGHT UPPER QUADRANTo n 10-09-2019 [...] of pancreas was limited by bowel gas. Palliative Care Coordinator: [facility] Transcribe Date/Time: Oct 09 2019 6:44P Dictated by : RUPESH JARAMILLO MD This examination was interpreted and the report reviewed and electronically signed by: RUPESH JARAMILLO MD on Oct 09 2019 6:50PM EST Normal [facility] Urinalysis Routineon 020 Appearance (U) 2+ (SLT CLOUDY) Normal [facility] Comment on above: Performed By: #### L CBCD #### [address] [address] Bacteria LM.HPF (Urine sed) [#/Area] MODERATE Abnormal None [facility] Comment on above: Performed By: #### L CBCD #### [facility] [address] [place], [place] [address] Bilirubin Urine see below Normal Negative [facility] Comment on above: Result Comment: Dete cted (Unable to confirm). Performed By: #### L CBCD #### [address] [address] Color (U) DARK YELLOW Normal [facility] Comment on above: Performed By: #### L CBCD #### [address], [place] [address] Comment Urines See Below Normal [facility] Comment on above: Result Comment: Volu me of urine <10 ml. Interpret microscopic result with caution. Performed By: #### L CBCD #### [facility] [address] [place] [address] Ep Cells Urine 21-35 Abnormal 0-5 [facility] Comment on above: Performed By: #### L CBCD #### [place] [address] Glucose Ql (U) Negative Normal Negative [facility] Comment on above: Performed By: #### L CBCD #### [place] [address] Hemoglobin,Urine 2+ Abnormal Negative [facility] Comment on above: Performed By: #### L CBCD #### [place] [address] Ketone Urine TRACE Abnormal Negative [facility] Comment on above: Performed By: #### L CBCD #### [place] [address] Leukocytes Esterase 2+ Abnormal Negative [facility] Comment on above: Performed By: #### L CBCD #### [place] [address] Mucus Threads FEW Normal None [facility] Comment on above: Performed By: #### L CBCD #### [place] [address] Nitrites Urine Negative Normal Negative [facility] Comment on above: Performed By: #### L CBCD #### [place] [address] pH (U) 5.5 [pH] Normal 5.0-8.0 [facility] Comment on above: Performed By: #### L CBCD #### [place] [address] Protein (U) [Mass/Vol] 1+ Abnormal Negative [facility] Comment on above: Performed By: #### L CBCD #### [place] [address] RBC LM.HPF (Urine sed) [#/Area] 0-3 Normal 0-3 [facility] Comment on above: Performed By: #### L CBCD #### [facility] [address] [place] [address] Urobilinogen,Ur 4.0 EU/dL High 0.2-1.0 [facility] Comment on above: Performed By: #### L CBCD #### [facility] [address] [place] [address] WBC LM.HPF (Urine sed) [#/Area] 21-35 Abnormal 0-5 [facility] Comment on above: Performed By: #### L CBCD #### [facility] [address] [place] [address] Urine Drug Screenon 10-09-19 20 Urine Amphetamine Non-Detected Normal Non-Detected [facility] Comment on above: Performed By: #### L CBCD #### [place] [address] Urine Barbiturates Non-Detected Normal Non-Detected [facility] Comment on above: Performed By: #### L CBCD #### [place] [address] Urine Benzodiazepine Non-Detected Normal Non-Detected [facility] Comment on above: Performed By: #### L CBCD #### [place] [address] Urine Buprenorphine Non-Detected Normal Non-Detected [facility] Comment on above: Result Comment: Urin e [...] medical diagnostic purposes only. Testing Performed at: [address] [address] Performed By: #### L CBCD #### [facility] [address] [place] [address] Urine Cocaine Non-Detected Normal Non-Detected [facility] Comment on above: Performed By: #### L CBCD #### [facility] [address] [place] [address] Urine Methadone Non-Detected Normal Non-Detected [facility] Comment on above: Performed By: #### L CBCD #### [facility] [address] [place] [address] Urine Methamphetamine Non-Detected Normal Non-Detected [facility] Comment on above: Performed By: #### L CBCD #### [place] [address] Urine Opiate Non-Detected Normal Non-Detected [facility] Comment on above: Performed By: #### L CBCD #### [facility] [address] [place] [address] Urine Oxycodone Non-Detected Normal Non-Detected [facility] Comment on above: Performed By: #### L CBCD #### [place] [address] Urine PCP Non-Detected Normal Non-Detected [facility] Comment on above: Performed By: #### L CBCD #### [place] [address] Urine Propoxyphene Non-Detected Normal Non-Detected [facility] Comment on above: Performed By: #### L CBCD #### [facility] [address] [place] [address] Urine THC Non-Detected Normal Non-Detected [facility] Comment on above: Performed By: #### L CBCD #### [place] [address] Urine Tricyclics Non-Detected Normal Non-Detected [facility] Comment on above: Performed By: #### L CBCD #### [facility] [address] [place] [address] Urine HCG, Qual.on 0 Beta HCG ( test) Ql (U) Negative Normal Negative [facility] Comment on above: Performed By: #### L CBCD #### [facility] [address] [place] [address] Specific [place], Ur 1.020 Normal 1.005-1.030 [facility] Comment on above: Performed By: #### L CBCD #### [facility] [address] [place] [address] Hepatic Panelon 10-08-2019 Albumin [Mass/Vol] 3.6 g/dL Normal 3.4-5.0 [facility] Comment on above: Performed By: #### L HEPA ####[place] [address] Albumin/Globulin [Mass ratio] 0.8 {ratio} Low 0.9-2.4 [facility] Comment on above: Performed By: #### L HEPA ####[place] [address] ALP [Catalytic activity/Vol] 295 U/L High 50-130 [facility] Comment on above: Performed By: #### L HEPA ####[place] [address] ALT-SGPT Blood 261 U/L High 14-63 [facility] Comment on above: Performed By: #### L HEPA ####[facility] [place] [address] AST-SGOT Blood 179 U/L High 15-37 [facility] Comment on above: Performed By: #### L HEPA ####[place] [address] Bilirubin Ql (U) 7.1 mg/dL High 0.2-1.0 [facility] Comment on above: Performed By: #### L HEPA ####[place] [address] Bilirubin.direct [Mass/Vol] 5.68 mg/dL High 0.00-0.20 [facility] Comment on above: Performed By: #### L HEPA ####[facility] [place], [place] [address] Bilirubin.indirect (Body fld) [Mass/Vol] 1.5 mg/dL High 0.0-0.7 [facility] Comment on above: Performed By: #### L HEPA ####[facility] [place], [place] [address] Protein [Mass/Vol] 8.1 g/dL Normal 6.4-8.2 [facility] Comment on above: Performed By: #### L HEPA ####[facility] [place], [place] [address] XR CHEST 2V FRONTAL/LATon XR CHEST 2V [...] bony abnormalities. IMPRESSION: No acute radiographic abnormality. [facility] Trans[facility] Date/Time: Oct 08 2019 5:08P Dictated by : VALENTINO MARKS MD This examination was interpreted and the report reviewed and electronically signed by: VALENTINO MARKS MD on Oct 08 2019 5:09PM EST Normal [facility] XR HIP 3V PELV+ AP/LAT RTon [...] tissues are normal. IMPRESSION: Within normal limits. Palliative Care Coordinator: [facility] Transcribe Date/Time: Oct 04 2019 12:43P Dictated by : NOLAN CHILD MD This examination was interpreted and the report reviewed and electronically signed by: NOLAN CHILD MD on Oct 04 2019 12:44PM EST Normal [facility] XR CHEST 2V FRONTAL/LATon XR CHEST [...] bony abnormalities. IMPRESSION: No acute radiographic abnormality. Palliative Care Coordinator: [facility] Transcribe Date/Time: Aug 30 2019 10:51A Dictated by : JONATHAN FLAHERTY DO This examination was interpreted and the report reviewed and electronically signed by: AMEENA CARD MD on Aug 30 2019 10:54AM EST Normal [facility] XR CHEST 2V FRONTAL/LATon XR CHEST [...] Peribronchial thickening. No focal parenchymal consolidation. ==== Palliative Care Coordinator: [facility] Transcribe Date/Time: Aug 19 2019 8:11A Dictated by : MARSHALL SUAZO DO This examination was interpreted and the report reviewed and electronically signed by: MARSHALL SUAZO DO on Aug 19 2019 8:13AM EST Normal [facility] JESUS by IFA Scrn w Rflxon JESUS by IFA Scrn w Rflx SEE BELOW Normal [facility] Comment on above: Result Comment: JESUS Positive AB NEGAT Normal range : negative at <1:80 serum dilution. JESUS Titer 1:320 AB NEGAT JESUS Pattern SEE BELOW Atypical speckled Performing Laboratory: [facility] [address] [place] [address] Performed By: #### A NAX ####[place] [address] Thyro. Peroxidase Abon 08-04 TPO Ab Qn 32.3 IU/ml Normal 0.0-60.0 [facility] Comment on above: Performed By: #### T PAB #### [place] [address] CRPon 08-02-2019 CRP [Mass/Vol] 0.96 mg/dL High 0.00-0.30 [facility] Comment on above: Performed By: #### C RP3 #### [place] [address] Comprehensive Panelon 2018 ALP [Catalytic activity/Vol] 90 U/L Normal 45-117 [facility] Comment on above: Performed By: #### P 14 #### [place] [address] Bilirubin [Mass/Vol] 0.3 mg/dL Normal 0.2-1.0 [facility] Comment on above: Performed By: #### P 14 #### [facility] [address] [place], [place] [address] Protein [Mass/Vol] 8.1 g/dL Normal 6.4-8.2 [facility] Comment on above: Performed By: #### P 14 #### [facility] [address] [place], [place] [address] ALT [Catalytic activity/Vol] 39 U/L Normal 12-78 [facility] Comment on above: Performed By: #### P 14 #### [facility] [address] [place], [place] [address] AST [Catalytic activity/Vol] 19 U/L Normal 15-37 [facility] Comment on above: Performed By: #### P 14 #### [facility] [address] [place], [place] [address] Creatinine [Mass/Vol] 0.71 mg/dL Normal 0.51-0.95 [facility] Comment on above: Performed By: #### P 14 #### [facility] [address] [place], [place] [address] Albumin [Mass/Vol] 3.9 g/dL Normal 3.4-5.0 [facility] Comment on above: Performed By: #### P 14 #### [facility] [address] [place], [place] [address] Urea nitrogen [Mass/Vol] 11 mg/dL Normal 7-18 [facility] Comment on above: Performed By: #### P 14 #### [facility] [address] [place], [place] [address] Anion gap [Moles/Vol] 9 mmol/L Normal 8-16 [facility] Comment on above: Performed By: #### P 14 #### [facility] [address] [place], [place] [address] Calcium [Mass/Vol] 9.3 mg/dL Normal 8.5-10.1 [facility] Comment on above: Performed By: #### P 14 #### [facility] [address] [place], [place] [address] CO2 [Moles/Vol] 27 mmol/L Normal 21-32 [facility] Comment on above: Performed By: #### P 14 #### [facility] [address] [place] [address] Glucose [Mass/Vol] 86 mg/dL Normal 70-99 [facility] Comment on above: Performed By: #### P 14 #### [facility] [address] [place] [address] Chloride [Moles/Vol] 105 mmol/L Normal 98-107 [facility] Comment on above: Performed By: #### P 14 #### [facility] [address] [place] [address] Potassium [Moles/Vol] 3.9 mmol/L Normal 3.5-5.1 [facility] Comment on above: Performed By: #### P 14 #### [facility] [address] [place] [address] Sodium [Moles/Vol] 137 mmol/L Normal 136-145 [facility] Comment on above: Performed By: #### P 14 #### [facility] [address] [place] [address] Free Thyroxineon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 Start: 09-14-2024 End: 09-14-2024 Emergency department patient visit Juana Correa Facility:[facility] Start: 09-13-2024 End: 09-13-2024 Telephone encounter Sarah Youngblood MD Work Phone: OB/Gynecology Comment on above: Nausea Start: 05-06-2024 End: 05-06-2024 Patient encounter procedure Madi Moss APRN.BATCH STILL OPERATOR Work Phone: OB/Gynecology Comment on above: Nexplanon removal (P rimary Dx); Screening for STD (sexually transmitted disease) Start: 05-06-2024 End: 05-06-2024 ambulatory MADI RODRIGUEZNICHOLE Facility:[facility] Start: 05-03-2024 End: 05-03-2024 ambulatory GIULIANA BULLARD Facility:[facility] Start: 05-03-2024 End: 05-03-2024 Patient encounter procedure Madi Moss APRN.BATCH STILL OPERATOR Work Phone: OB/Gynecology Comment on above: Encounter [...] encounter status Madi Moss APRN.CNP Work Phone: [facility] Work Phone: Start: 01-28-2024 End: 01-28-2024 Patient encounter procedure Sophy Ulloa APRN.CNP Work Phone: [facility] Comment on above: Rhinosinusitis (Prim pascual Dx) Start: 10-30-2023 End: 10-30-2023 Patient encounter procedure Sophy Ulloa APRN.BATCH STILL OPERATOR Work Phone: [facility] Comment on above: Pain (Primary Dx) Start: 10-30-2023 End: 10-30-2023 Subsequent hospital visit by physician [facility] Work Phone: Radiology Comment on above: Pain [R52] Rhonchi at right lesia g base [R09.89] Start: 10-29-2023 End: 02-11-2024 Patient encounter procedure Lester Rojo APRN.BATCH STILL OPERATOR Work Phone: [facility] Comment on above: Viral syndrome (Prim pascual Dx); Rhonchi at right lung base Start: 05-15-2023 End: 05-15-2023 Patient encounter procedure Lester Rojo APOORVA.BATCH STILL OPERATOR Work Phone: [facility] Comment on above: URI, acute (Primary Dx); Sore throat; History of asthma Start: 03-15-2023 Telephone encounter Brendan CHAND Work Phone: [facility] Comment on above: Results Start: 03-15-2023 End: 03-15-2023 Patient encounter procedure Torri Park PA-C Work Phone: [facility] Comment on above: Sore throat (Primary Dx); Viral URI; Acute otitis media, bilateral Start: 11-28-2022 End: 11-28-2022 Office outpatient visit 25 minutes Joseph Alaniz APRN.BATCH STILL OPERATOR Work Phone: [facility] Comment on above: Suspected COVID-19 v irus infection (Primary Dx); Acute otitis media, right Start: 05-25-2022 End: 05-28-2022 [facility] Start: 04-28-2022 End: 04-28-2022 Patient encounter procedure [facility], Specimen Start: 03-15-2022 End: 03-15-2022 Patient encounter procedure [facility], [place] broke handler Off Start: 12-31-2021 End: 01-01-2022 ambulatory [facility] Start: 12-03-2021 End: 12-03-2021 Subsequent hospital visit by physician Tori Guidry APRN - BATCH STILL OPERATOR Work Phone: [facility] Comment on above: Supervision of high risk in second trimester; Maternal obesity, antepartum Start: 11-29-2021 End: 11-29-2021 ambulatory GIULIANA BULLARD Facility:[facility] Procedures Date Procedure Procedure Detail Performing Clinician Start: 04-28-2025 Urnls dip stick/tabl et rgnt non-auto w/o micrscp Sarah Youngblood MD Work Phone: Start: 04-18-2025 Urnls dip stick/tabl et rgnt non-auto w/o micrscp Iveth Mccain MD Work Phone: Start: 04-18-2025 Us preg uterus after 1st trimest / gestation Mayelin Duran RECORD TESTER.CNM Work Phone: Start: 04-04-2025 Urnls dip stick/tabl et rgnt non-auto w/o micrscp Sarah Youngblood MD Work Phone: Start: 03-20-2025 Us preg uterus after 1st trimest / gestation Mayelin Plotracquel RECORD TESTER.CNM Work Phone: Start: 12-27-2024 Us preg uterus after 1st trimest 09/18 gestation Madi Moss APRN.BATCH STILL OPERATOR Work Phone: Start: 11-06-2024 Urnls dip stick/tabl et rgnt auto w/o microscopy Ignacia Ribeiro RECORD TESTER.BATCH STILL OPERATOR Work Phone: Start: 11-01-2024 Antibody screen GIULIANA BULLARD Comment on above: Order Comment: Speci men Type: BLOOD SPECIMENOrdering Facility: [facility] Address: [address] [place] [address] Performed By: #### T SPN ####CC MAIN BLOOD BANKCLIA [id number] [place] [address] [place] Start: 11-01-2024 Us nuchal saucedo slucency 1st gestation Madi Moss APRN.BATCH STILL OPERATOR Work Phone: Start: 09-25-2024 Us uterus l imited 1/> fetuses Madi Moss APRN.BATCH STILL OPERATOR Work Phone: Start: 10-30-2023 Radex toe minimum 2 views Sophy Ulloa APRN.BATCH STILL OPERATOR Work Phone: Start: 10-30-2023 Radiologic exam ches t 2 views Lester Rojo RECORD TESTER.BATCH STILL OPERATOR Work Phone: Start: 05-15-2023 STREP A MOLECULAR (POC) Lester Rojo RECORD TESTER.BATCH STILL OPERATOR Work Phone: Start: 03-15-2023 STREP A MOLECULAR (POC) Sophy Ulloa RECORD TESTER.BATCH STILL OPERATOR Work Phone: Start: 11-28-2022 COVID WITH FLUA+B, ROUTINE Joseph Alaniz RECORD TESTER.BATCH STILL OPERATOR Work Phone: Start: 12-03-[address] gtt 3 specimens Tori Guidry RECORD TESTER - BATCH STILL OPERATOR Work Phone: Start: 11-10-2021 Blood count hemoglobin Comment on above: Performed By: #### A RAMIRO NEVILLE #### [facility] Start: 06-03-2019 Throat culture Comment on above: Performed By: #### C THRT #### [place] [address] Group B Streptococcu s Culture Viral antigen assay Plan of Treatment Date Care Activity Detail Author Start: 05-03-2027 Screening for malign ant neoplasm of cervix Cervical Cancer Screening [facility] Start: 11-06-2025 GC (Gonorrhea) Scree kurt (18-) GC (Gonorrhea) Screening (18-) [facility] Start: 11-06-2025 Screening for Chlamy christine trachomatis Chlamydia Screening () [facility] Start: 09-25-2025 GC (Gonorrhea) Scree kurt (18-24) GC (Gonorrhea) Screening (18-24) [facility] Start: 09-25-2025 Screening for Chlamy christine trachomatis Chlamydia Screening (18) [facility] Start: 05-19-2025 Influenza vaccination [facility] Start: 05-09-2025 End: 05-09-2025 Patient encounter procedure 05/09/2025 3:15 PM EDT Routine Office Visit OB/Gynecology [address] [place] [address] Ignacia Lyon APRN.CN [address] [place] [address] OB OB/Gynecology Comment on above: OB Start: 05-06-2025 GC (Gonorrhea) Scree kurt () GC (Gonorrhea) Screening (-) [facility] Start: 05-06-2025 Screening for Chlamy christine trachomatis Chlamydia Screening () [facility] Start: 05-05-2025 End: 05-05-2025 Patient encounter procedure 05/05/2025 2:45 PM EDT Office Visit OB/Gynecology [address] [place] [address] Madi Moss APRN.[facility] [address] [place] [address] Annual OB/Gynecology Comment on above: Annual Start: 04-28-2025 End: 04-28-2025 Patient encounter procedure 04/28/2025 2:30 PM EDT Routine Office Visit OB/Gynecology [address] [place] [address] Sarah Youngblood MD [address] [place] [address] OB/NST OB/Gynecology Comment on above: OB/NST Start: 04-23-2025 End: 04-23-2025 Patient encounter procedure 04/23/2025 9:00 AM EDT Routine Office Visit OB/Gynecology [address] [place] [address] Enmanuel Rodriguez MD [address] [place] [address] OB/NST OB/Gynecology Comment on above: OB/NST Start: 04-18-2025 End: 04-18-2025 Patient encounter procedure Maternal Medicine Comment on above: Growth Growth /OB Start: 04-04-2025 End: 04-04-2025 Patient encounter procedure 04/04/2025 9:50 AM EDT Routine Office Visit OB/Gynecology [address] [place] [address] Sarah Youngblood MD [address] [place] [address] OB OB/Gynecology Comment on above: OB Start: 03-20-2025 End: 03-20-2025 Patient encounter procedure Maternal Medicine Comment on above: Growth Growth/OB Start: 03-07-2025 End: 03-07-2025 Patient encounter procedure 03/07/2025 1:50 PM EDT Routine Office Visit OB/Gynecology [address] [place] [address] Sarah Youngblood MD [address] [place] [address] OB OB/Gynecology Comment on above: OB Start: 02-21-2025 End: 05-23-2025 ANEMIA REFLEX PANEL [facility] Comment on above: Expected: 02/21/2025 , Expires: 05/23/2025 Start: 02-21-2025 End: 02-21-2026 SYPHILIS TREPONEMAL W/REFLEX [facility] Work Phone: Comment on above: Expected: 02/21/2025 , Expires: 02/21/2026 Start: 02-21-2025 End: 02-21-2025 Patient encounter procedure 02/21/2025 11:15 AM EDT Routine Office Visit OB/Gynecology [address] [place] [address] Mayelin Duran APRN.[facility] [address] [place] [address] OB OB/Gynecology Comment on above: OB Start: 01-24-2025 End: 01-24-2025 Patient encounter procedure 01/24/2025 2:30 PM EDT Routine Office Visit OB/Gynecology [address] [place], [place] [id number] Ignacia Lyon APRN.CN [address] [place] [address] OB OB/Gynecology Comment on above: OB Start: 12-27-2024 End: 12-27-2024 Patient encounter procedure Maternal Medicine Comment on above: with uncer tain dates in first trimester [Z34.91] OB Start: 11-28-2024 End: 11-28-2024 Patient encounter procedure 11/28/2024 1:30 PM EDT Routine Office Visit OB/Gynecology [address] [place] [id number] Ten Wise MD [address] [place] [address] OB OB/Gynecology Comment on above: OB Start: 11-01-2024 End: 01-31-2025 Chromosome 21 trisomy [Presence] in Blood or Tissue by Cytogenetics [facility] Work Phone: Comment on above: Expected: 11/01/2024 , Expires: 01/31/2025 Start: 11-01-2024 End: 11-01-2024 Patient encounter procedure OB/Gynecology Comment on above: New OB LMP 07/22/24 Encounter for superv ision of high risk in first trimester, antepartum [O09.91] Start: 09-26-2024 End: 09-26-2024 Patient encounter procedure 09/26/2024 10:20 AM EST Office Visit OB/Gynecology [address] [place] [address] Iveth Walker MD [address] [place] [id number] New wt mgmt consult OB/Gynecology Comment on above: New wt mgmt consult Start: 09-25-2024 End: 12-25-2024 ANEMIA REFLEX PANEL ANEMIA REFLEX PANEL Lab Routine Less than 8 weeks gestation of with uncertain dates in first trimester Expected: 09/25/2024, Expires: 12/25/2024 [facility] Work Phone: Comment on above: Expected: 09/25/2024 , Expires: 12/25/2024 Start: 09-25-2024 End: 12-25-2024 Comprehensive metabolic 2000 panel - Serum or Plasma COMPREHENSIVE METABOLIC PANEL Lab Routine Hx of preeclampsia, prior , currently Expected: 09/25/2024, Expires: 12/25/2024 [facility] Comment on above: Expected: 09/25/2024 , Expires: 12/25/2024 Start: 09-25-2024 End: 12-25-2024 Hemoglobin A1c in Blood HEMOGLOBIN A1C Lab Routine Less than 8 weeks gestation of with uncertain dates in first trimester Expected: 09/25/2024, Expires: 12/25/2024 [facility] Comment on above: Expected: 09/25/2024 , Expires: 12/25/2024 Start: 09-25-2024 End: 12-25-2024 HEMOGLOBIN EVALUATION CASCADE HEMOGLOBIN EVALUATION CASCADE Lab Routine Encounter for supervision of high risk in first trimester, antepartum Expected: 09/25/2024, Expires: 12/25/2024 [facility] Comment on above: Expected: 09/25/2024 , Expires: 12/25/2024 Start: 09-25-2024 End: 12-25-2024 Hepatitis B virus surface Ag [Presence] in Serum HEPATITIS B SURFACE ANTIGEN Lab Routine Less than 8 weeks gestation of with uncertain dates in first trimester Expected: 09/25/2024, Expires: 12/25/2024 [facility] Comment on above: Expected: 09/25/2024 , Expires: 12/25/2024 Start: 09-25-2024 End: 12-25-2024 Hepatitis C virus Ab [Presence] in Serum HEPATITIS C ANTIBODY IA WITH CONFIRMATION Lab Routine Less than 8 weeks gestation of with uncertain dates in first trimester Expected: 09/25/2024, Expires: 12/25/2024 [facility] Comment on above: Expected: 09/25/2024 , Expires: 12/25/2024 Start: 09-25-2024 End: 12-25-2024 HIV 1+2 Ab [Presence] in Serum or Plasma by Immunoassay HIV 1/2 COMBO WITH REFLEX TO DIFFERENTIATION Lab Routine Less than 8 weeks gestation of with uncertain dates in first trimester Expected: 09/25/2024, Expires: 12/25/2024 [facility] Comment on above: Expected: 09/25/2024 , Expires: 12/25/2024 Start: 09-25-2024 End: 09-25-2025 NUCHAL TRANSLUCENCY WHI NUCHAL TRANSLUCENCY WHI Anc Imaging Routine Encounter for supervision of high risk in first trimester, antepartum Expected: 09/25/2024, Expires: 09/25/2025 [facility] Comment on above: Expected: 09/25/2024 , Expires: 09/25/2025 Start: 09-25-2024 End: 09-25-2025 OBSTETRIC ULTRASOUND WHI OBSTETRIC ULTRASOUND WHI Anc Imaging Routine Less than 8 weeks gestation of with uncertain dates in first trimester Expected: 09/25/2024, Expires: 09/25/2025 [facility] Comment on above: Expected: 09/25/2024 , Expires: 09/25/2025 Start: 09-25-2024 End: 12-25-2024 Protein/Creatinine [Mass Ratio] in Urine PROTEIN / CREATININE RATIO Lab Routine Hx of preeclampsia, prior , currently Expected: 09/25/2024, Expires: 12/25/2024 [facility] Comment on above: Expected: 09/25/2024 , Expires: 12/25/2024 Start: 09-25-2024 End: 12-25-2024 RUBELLA IGG ANTIBODY RUBELLA IGG ANTIBODY Lab Routine Less than 8 weeks gestation of with uncertain dates in first trimester Expected: 09/25/2024, Expires: 12/25/2024 [facility] Comment on above: Expected: 09/25/2024 , Expires: 12/25/2024 Start: 09-25-2024 End: 12-25-2024 SYPHILIS TREPONEMAL W/REFLEX SYPHILIS TREPONEMAL W/REFLEX Lab Routine Less than 8 weeks gestation of with uncertain dates in first trimester Expected: 09/25/2024, Expires: 12/25/2024 [facility] Comment on above: Expected: 09/25/2024 , Expires: 12/25/2024 Start: 09-25-2024 End: 12-25-2024 Thyrotropin [Units/volume] in Serum or Plasma THYROID STIMULATING HORMONE Lab Routine Hx of preeclampsia, prior , currently Expected: 09/25/2024, Expires: 12/25/2024 [facility] Comment on above: Expected: 09/25/2024 , Expires: 12/25/2024 Start: 09-25-2024 End: 12-25-2024 TYPE + SCREEN TYPE + SCREEN Blood Bank Routine Less than 8 weeks gestation of with uncertain dates in first trimester Expected: 09/25/2024, Expires: 12/25/2024 [facility] Comment on above: Expected: 09/25/2024 , Expires: 12/25/2024 Start: 09-25-2024 End: 09-25-2024 Patient encounter procedure OB/Gynecology Comment on above: New OB LMP 07/22/24 9 weeks gestation of (Primary Dx) Start: 05-19-2024 Covid-19 Vaccine ( season) Covid-19 Vaccine () [facility] Start: 05-19-2024 Covid-19 Vaccine ( season) Covid-19 Vaccine ( season) [facility] Start: 05-19-2024 Influenza vaccination C [facility] Start: 05-06-2024 End: 05-06-2024 Patient encounter procedure 05/06/2024 3:30 PM EDT Office Visit OB/Gynecology [address] [place], [place] [id number] Madi Moss APRN.BATCH STILL OPERATOR [address] [place] [place] [address] Nexplonon Removal OB/Gynecology Comment on above: Nexplonon Removal Start: 05-03-2024 End: 08-02-2024 CBC panel - Blood by Automated count COMPLETE BLOOD COUNT Lab Routine Nipple discharge Expected: 05/03/2024, Expires: 08/02/2024 [facility] Comment on above: Expected: 05/03/2024 , Expires: 08/02/2024 Start: 05-03-2024 End: 08-02-2024 Hemoglobin A1c in Blood HEMOGLOBIN A1C Lab Routine Nipple discharge Expected: 05/03/2024, Expires: 08/02/2024 [facility] Comment on above: Expected: 05/03/2024 , Expires: 08/02/2024 Start: 05-03-2024 End: 08-02-2024 Prolactin [Mass/volume] in Serum or Plasma PROLACTIN Lab Routine Nipple discharge Expected: 05/03/2024, Expires: 08/02/2024 [facility] Comment on above: Expected: 05/03/2024 , Expires: 08/02/2024 Start: 05-03-2024 End: 08-02-2024 Thyrotropin [Units/volume] in Serum or Plasma THYROID STIMULATING HORMONE Lab Routine Nipple discharge Expected: 05/03/2024, Expires: 08/02/2024 [facility] Comment on above: Expected: 05/03/2024 , Expires: 08/02/2024 Start: 05-03-2024 End: 08-02-2024 Thyroxine (T4) free [Mass/volume] in Serum or Plasma T4 FREE/FREE THYROXINE Lab Routine Nipple discharge Expected: 05/03/2024, Expires: 08/02/2024 [facility] Comment on above: Expected: 05/03/2024 , Expires: 08/02/2024 Start: 04-17-2024 DTaP/Tdap/Td vaccine (7 - Td or Tdap) DTaP/Tdap/Td vaccine (7 - Td or Tdap) [facility] Start: 04-17-2024 Urine microalbumin profile [facility] Start: 05-19-2023 Covid-19 Vaccine ( season) Covid-19 Vaccine () [facility] Start: 05-19-2023 Influenza vaccination C [facility] Start: 05-15-2023 End: 05-29-2023 SARS-CoV-2 (COVID-19) RNA [Presence] in Respiratory specimen by LOTTIE with probe detection [facility] Work Phone: Comment on above: Expected: 05/15/2023 , Expires: 05/29/2023 Start: 03-15-2023 End: 03-29-2023 Influenza virus A and B RNA and SARS-CoV-2 (COVID-19) N gene panel - Respiratory specimen by LOTTIE with probe detection [facility] Work Phone: Comment on above: Expected: 03/15/2023 , Expires: 03/29/2023 Start: 11-15-2022 Screening for Chlamy christine trachomatis Chlamydia screen [facility] Start: 2022 PAP TESTING PAP TESTING [facility] Start: 2022 Screening for malign ant neoplasm of cervix [facility] Start: 05-28-2022 Patient discharge [facility] Work Phone: Start: 05-27-2022 Administration of medication [facility] Work Phone: Start: 05-27-2022 Application of ice collar, cap or bag [facility] Work Phone: Start: 05-27-2022 Catheterization of vein [facility] Work Phone: Start: 05-27-2022 Introduction of urin pascual catheter [facility] Work Phone: Start: 05-27-2022 Measuring intake and output [facility] Work Phone: Start: 05-27-2022 Notification of physician [facility] Work Phone: Start: 05-27-2022 Procedure discontinued [facility] Work Phone: Start: 05-27-2022 Provision of activit y privileges [facility] Work Phone: Start: 05-27-2022 Vital signs measurements [facility] Work Phone: Start: 05-27-2022 [facility] Work Phone: Start: 05-25-2022 Admission procedure [facility] Work Phone: Start: 05-19-2022 Influenza vaccination INFLUENZA (#1) [facility] Start: 04-05-2022 ANNUAL PCP TEAM STORE ASSISTANT JED DISEASE VISIT ANNUAL PCP TEAM CHRONIC DISEASE VISIT [facility] Start: 12-21-2021 End: 12-21-2021 Patient encounter procedure 12/21/2021 Routine Obstetrics and Gynecology Carrie Rubio MD [address], [address] [place] [address] [facility] Start: 12-21-2021 End: 12-21-2021 Patient encounter procedure 12/21/2021 Procedure visit Obstetrics and Gynecology [facility] Start: 12-06-2021 End: 12-06-2021 Patient encounter procedure 12/06/2021 Routine Obstetrics and Gynecology Tori Guidry APRN - [place] [address] [place] [address] [facility] Start: 10-08-2021 ASTHMA ACTION PLAN ASTHMA ACTION ELENA N [facility] Start: 05-19-2021 Influenza vaccination Flu vaccine (# 1) [facility] Start: 05-07-2021 CHLAMYDIA SCREENING (18-24) CHLAMYDIA SCREENING (18-24) [facility] Start: 05-07-2021 GC (GONORRHEA) SCREE KURT (18-24) GC (GONORRHEA) SCREENING (18-24) [facility] Start: 05-07-2021 Screening for Chlamy christine trachomatis Chlamydia Screening (18-) [facility] Start: 10-08-2020 ASTHMA CONTROL TEST ASTHMA CONTROL T EST [facility] Start: 2017 Meningococcal B Vacc ine (1 of 2 - Standard) Meningococcal B Vaccine (1 of 2 - Standard) [facility] Start: 2017 Meningococcal B Vacc ine: Consider Based On Risk (1 of 2 - Patient Seeks Protection) Meningococcal B Vaccine: Consider Based On Risk (1 of 2 - Patient Seeks Protection) [facility] Start: 2017 MENINGOCOCCAL B: Con material control analyst based on risk (1 of 2 - Patient Seeks Protection) MENINGOCOCCAL B: Consider based on risk (1 of 2 - Patient Seeks Protection) [facility] Start: 2016 HPV Vaccine (1 - 3-d ose series) HPV Vaccine (1 - 3-dose series) [facility] Start: 2015 PEDS TO ADULT TRANSI TION ANNUAL ASSESSMENT PEDS TO ADULT TRANSITION ANNUAL ASSESSMENT [facility] Start: 2013 Depression Monitoring Depression Mon itoring [facility] Start: 2013 PEDS TO ADULT TRANSI TION INITIAL DISCUSSION PEDS TO ADULT TRANSITION INITIAL DISCUSSION [facility] Start: 2012 HPV vaccine (1 - 2-d ose series) HPV vaccine (1 - 2-dose series) [facility] Start: 2011 MENINGOCOCCAL B: Con material control analyst based on risk (1 of 2 - Risk Bexsero 2-dose series) MENINGOCOCCAL B: Consider based on risk (1 of 2 - Risk Bexsero 2-dose series) [facility] Start: 2010 HPV VACCINE (1 - 2-d ose series) HPV VACCINE (1 - 2-dose series) [facility] Start: 2007 PNEUMOCOCCAL (1 - PCV) PNEUMOCOCCAL (1 - PCV) [facility] Start: 2007 Pneumococcal 0-64 ye ars Vaccine (1 of 2 - PPSV23) Pneumococcal 0-64 years Vaccine (1 of 2 - PPSV23) [facility] Start: 2007 Pneumococcal vaccination Pneum ococcal Vaccine (1 of 2 - PCV) [facility] Start: 2006 COVID-19 Vaccine (1) COVID-19 Vaccin e (1) [facility] Start: 06-16-2004 Hepatitis A vaccine (2 of 2 - 2-dose series) Hepatitis A vaccine (2 of 2 - 2-dose series) [facility] Start: 2001 COVID-19 VACCINE (#1) COVID-19 VACCI NE (#1) [facility] Bacteria identified in Urine by Culture BACTERIAL CULTURE, URINE Microbiology Routine Less than 8 weeks gestation of with uncertain dates in first trimester 09/25/2024 10:22 AM EST [facility] Bacteria identified in Urine by Culture BACTERIAL CULTURE, URINE Microbiology Routine Urinary frequency Ordered: 11/06/2024 [facility] Work Phone: Comment on above: Ordered: 11/06/2024 BACTERIAL VAGINOSIS NAAT BACTERI AL VAGINOSIS NAAT Lab Routine Vaginal odor 05/03/2024 4:08 PM EDT [facility] BACTERIAL VAGINOSIS NAAT BACTERI AL VAGINOSIS NAAT Lab Routine Vaginal discharge Ordered: 11/06/2024 [facility] Comment on above: Ordered: 11/06/2024 ALIREZA/TRICHOMONAS NAAT ALIREZA /TRICHOMONAS NAAT Lab Routine Vaginal odor 05/03/2024 4:08 PM EDT [facility] ALIREZA/TRICHOMONAS NAAT ALIREZA /TRICHOMONAS NAAT Lab Routine Vaginal discharge Ordered: 11/06/2024 [facility] Comment on above: Ordered: 11/06/2024 Chlamydia trachomatis+Neisseria gonorrhoeae DNA [Presence] in Unspecified specimen by LOTTIE with probe detection GONORRHEA/CHLAMYDIA NAAT Lab Routine Screening for STD (sexually transmitted disease) 05/06/2024 4:05 PM EDT [facility] Work Phone: Chlamydia trachomatis+Neisseria gonorrhoeae DNA [Presence] in Unspecified specimen by LOTTIE with probe detection GONORRHEA/CHLAMYDIA NAAT Lab Routine Less than 8 weeks gestation of with uncertain dates in first trimester 09/25/2024 10:22 AM EST [facility] Chlamydia trachomatis+Neisseria gonorrhoeae DNA [Presence] in Unspecified specimen by LOTTIE with probe detection GONORRHEA/CHLAMYDIA NAAT Lab Routine Vaginal discharge Ordered: 11/06/2024 [facility] Comment on above: Ordered: 11/06/2024 COVID & INFLUENZA A/ B & RSV NAAT, ROUTINE COVID & INFLUENZA A/B & RSV NAAT, ROUTINE Microbiology Routine Viral syndrome Ordered: 10/29/2023 [facility] Work Phone: Comment on above: Ordered: 10/29/2023 End: 06-18-2025 nonstress test NON-STRESS TEST Procedures Routine Supervision of high risk in second trimester ([facility]) Obesity in (HCC) Once per week for 5 Occurrences starting 04/18/2025 until 06/18/2025 [facility] Work Phone: Comment on above: Once per week for 5 Occurrences starting 04/18/2025 until 06/18/2025 NEXPLANON REMOVAL NEXPLANON ANGELA SILVESTRE Procedures Routine Nexplanon removal Ordered: 05/03/2024 [facility] Work Phone: Comment on above: Ordered: 05/03/2024 End: 08-20-2025 OBSTETRIC ULTRASOUND WHI OBSTETRIC ULTRASOUND WHI Anc Imaging Routine 28 weeks gestation of (HCC) Obesity affecting in second trimester, unspecified obesity type ([facility]) Once per month for 5 Occurrences starting 02/21/2025 until 08/20/2025 [facility] Comment on above: Once per month for 5 Occurrences starting 02/21/2025 until 08/20/2025 PAP TEST PAP TEST Lab Clair jessika Encounter for gynecological examination (general) (routine) with abnormal findings Screening for cervical cancer Encounter for screening for human papillomavirus (HPV) 05/03/2024 2:26 PM EDT [facility] Patient referral [facility] Work Phone: ROUTINE, GR OUP B STREPTOCOCCUS BY PCR ROUTINE, GROUP B STREPTOCOCCUS BY PCR Microbiology Routine 36 weeks gestation of ([facility]) Supervision of high risk in second trimester ([facility]) Hx of preeclampsia, prior , currently ([facility]) LGA (large for gestational age) infant ([facility]) 04/18/2025 2:51 PM EDT [facility] XR Chest 2 Views XR CHEST 2V FRO NTAL/LAT Radiology STAT Rhonchi at right lung base Ordered: 10/29/2023 [facility] Work Phone: Comment on above: Ordered: 10/29/2023 Immunizations Immunization Date Immunization Notes Care Provider Efrain escamilla 04-17-2014 tetanus toxoid, reduced diphtheria toxoid, and acellular pertussis vaccine, adsorbed Joseph Pendronnybury RECORD TESTER.[facility] Work Phone: [facility] Work Phone: 04-17-2014 varicella virus vaccine Joseph Pendwilfredo RECORD TESTER.[facility] Work Phone: [facility] Work Phone: 06-22-2007 diphtheria, tetanus toxoids and acellular pertussis vaccine Joseph Pendwilfredo RECORD TESTER.[facility] Work Phone: [facility] Work Phone: 06-22-2007 measles, mumps and rubella virus vaccine Joseph Pendwilfredo RECORD TESTER.[facility] Work Phone: [facility] Work Phone: 06-22-2007 poliovirus vaccine, inactivated Joseph Pendronnybury RECORD TESTER.BATCH STILL OPERATOR Work Phone: [facility] Work Phone: 06-22-2007 varicella virus vaccine Joseph Alaniz RECORD TESTER.[facility] Work Phone: [facility] Work Phone: 12-15-2003 diphtheria, tetanus toxoids and acellular pertussis vaccine Joseph Alaniz RECORD TESTER.[facility] Work Phone: [facility] Work Phone: 12-15-2003 haemophilus influenz ae type b vaccine, HbOC conjugate Joseph Alaniz RECORD TESTER.[facility] Work Phone: [facility] Work Phone: 12-15-2003 hepatitis A vaccine, unspecified formulation Joseph Alaniz RECORD TESTER.[facility] Work Phone: [facility] Work Phone: 12-15-2003 hepatitis B vaccine, pediatric or pediatric/adolescent dosage Joseph Alaniz RECORD TESTER.[facility] Work Phone: [facility] Work Phone: 12-15-2003 measles, mumps and rubella virus vaccine Joseph Alaniz RECORD TESTER.[facility] Work Phone: [facility] Work Phone: 03-04-2002 diphtheria, tetanus toxoids and acellular pertussis vaccine Joseph Alaniz RECORD TESTER.[facility] Work Phone: [facility] Work Phone: 03-04-2002 poliovirus vaccine, inactivated Joseph Alaniz RECORD TESTER.[facility] Work Phone: [facility] Work Phone: 2001 diphtheria, tetanus toxoids and acellular pertussis vaccine Joseph Alaniz RECORD TESTER.[facility] Work Phone: [facility] Work Phone: 2001 haemophilus influenz ae type b vaccine, HbOC conjugate Joseph Alaniz RECORD TESTER.[facility] Work Phone: [facility] Work Phone: 2001 hepatitis B vaccine, pediatric or pediatric/adolescent dosage Joseph Alaniz RECORD TESTER.BATCH STILL OPERATOR Work Phone: [facility] Work Phone: 2001 pneumococcal conjuga te vaccine, 7 valent Joseph Alaniz RECORD TESTER.BATCH STILL OPERATOR Work Phone: [facility] Work Phone: 2001 poliovirus vaccine, inactivated Joseph Alaniz RECORD TESTER.BATCH STILL OPERATOR Work Phone: [facility] Work Phone: 2001 diphtheria, tetanus toxoids and acellular pertussis vaccine Josephevgeny Salomonla RECORD TESTER.BATCH STILL OPERATOR Work Phone: [facility] Work Phone: 2001 haemophilus influenz ae type b vaccine, HbOC conjugate [facility] REC[facility].BATCH STILL OPERATOR Work Phone: [facility] Work Phone: 2001 hepatitis B vaccine, pediatric or pediatric/adolescent dosage Joseph Alaniz RECORD TESTER.[facility] Work Phone: [facility] Work Phone: 2001 pneumococcal conjuga te vaccine, 7 valent Joseph Alaniz RECORD TESTER.BATCH STILL OPERATOR Work Phone: [facility] Work Phone: 2001 poliovirus vaccine, inactivated Joseph Alaniz RECORD TESTER.BATCH STILL OPERATOR Work Phone: [facility] Work Phone: Payers Date Payer Category Payer Self-pay [id number] 2022 Medicaid [id number] 2022 Medicaid [id number] 2019 Unknown [id number] Unknown [id number] Unknown [id number] Unknown [id number] Social History Date Type Detail Facility Start: 10-07-2021 Tobacco smoking status NHIS Never smoked tobacco [employer] Work Phone: Start: 10-07-2021 End: 09-24-2024 Tobacco use and exposure Smokeless tobacco non-user [employer] Work Phone: Start: 11-15-2021 End: 04-28-2025 Alcohol intake Ex-drinker (finding) [employer] Work Phone: Start: 08-28-2021 [employer] Work Phone: Start: 2001 Sex Assigned At Not on file [employer] Work Phone: Start: 07-05-2021 End: 05-25-2022 Tobacco smoking status VTIS Unknown if ever smoked [facility] Work Phone: Start: 2001 Sex Assigned At Female [facility] Start: 11-28-2022 Tobacco smoking status NHIS Occasional tobacco smoker [facility] End: 06-26-2019 History of tobacco use Cigarette Smoker [facility] Start: 11-28-2022 End: 05-06-2024 Alcohol intake Current drinker of alcohol (finding) [facility] Start: 11-28-2022 Tobacco Comment sometimes smokes . sometimes hits boyfriends vape [facility] Start: 04-05-2021 Alcohol Comment occ. [facility] Start: 10-11-2019 End: 04-23-2025 [facility] Start: 10-11-2019 End: 04-23-2025 Alcohol Use Disorder Identification Test - Consumption [AUDIT-C] [facility] Start: 04-06-2015 Frequency of Alcohol Consumption 2-4 times a month [facility] Start: 11-13-2020 Gender identity Identifies as female gender (finding) [facility] Start: 11-13-2020 Sexual orientation Heterosexual (finding) [facility] Start: 05-03-2024 End: 09-24-2024 Tobacco smoking status NHIS Ex-smoker [facility] End: 06-26-2019 History of tobacco use Current smoker [facility] The thought of sahara denny myself has occurred to me Never [facility] Start: 09-24-2024 Education 13 [facility] How often to you hav e a drink containing alcohol? 2-4 times a month [facility] How many standard dr inks containing alcohol do you have on a typical day? 5 or 6 [facility] Goals Date Patient Goal Desired Activity /State Personal health goal Functional Status Date Assessment Result Facility 05-27-2022 Functional status Activity Ability Indepe ndent [facility] Work Phone: Mental Status Date Assessment Result Facility 05-27-2022 Cognitive function Awake;Alert;A ppropriate;Fol lows Commands [facility] Work Phone: Clinical Notes 10-25-2019 to 04-28-2025 [...] Sarah Youngblood MD documented in this encounter [facility] 04-28-2025 Progress note Formatting of t his [...] LGA ASSESSMENT/PLAN: 1. 37 weeks gestation of ([facility]) - ICD9: V22.2, ICD10: Z3A.37 (primary diagnosis) - URINE OB DIP B/O 2. Supervision of high risk in second trimester ([facility]) - ICD9: V23.9, ICD10: O09.92 - URINE OB DIP B/O 3. Obesity in ([facility]) - ICD9: 649.10, ICD10: O99.210 Weekly NSTs Growth q 4 - URINE OB DIP B/O Sarah Youngblood MD [facility] 04-28-2025 Miscellaneous Notes S: Michael Palma is [...] LGA ASSESSMENT/PLAN: 1. 37 weeks gestation of ([facility]) - ICD9: V22.2, ICD10: Z3A.37 (primary diagnosis) - URINE OB DIP B/O 2. Supervision of high risk in second trimester ([facility]) - ICD9: V23.9, ICD10: O09.92 - URINE OB DIP B/O 3. Obesity in ([facility]) - ICD9: 649.10, ICD10: O99.210 Weekly NSTs Growth q 4 - URINE OB DIP B/O Sarah Youngblood MD documented in this encounter [facility] 04-28-2025 Instructions Sabiha Escamilla MA - 04/28/2025 2:25 PM EDT SEQUENTIAL SCREENINGS The [facility] offers sequential screenings for women who are [...] It will require an appointment with our ground control approach technician. This is not an ultrasound performed by [...] the above symptoms, contact our office at [phone] and ask to speak with a nurse. After hours, you can call doctors registry at [phone] OR call [facility] at [phone] and ask to have the doctor lens and frames prescription clerk paged. If you consider this an emergency, dial 4-1-7 or go to your nearest emergency department. NEED HELP? Are you dealing with a violent or abusive relationship? Are you a victim of rape or sexual assult? Call [facility] ([place]) 24 hour Crisis Hotline: 645.140.6001 or 026-820-7708. MANUAL Your Guide to a Healthy manual is now on-line. Visit [email or web address] to download your free copy documented in this encounter [facility] 04-23-2025 Note HNO ID: [id number] Author: ENMANUEL RODRIGUEZ MD Service: ? Author [...] Interpretation: Category I SIGNATURE: Enmanuel Rodriguez MD [facility] 04-18-2025 Note Indication Evaluation of growth history [...] 0 oz EFW by: Hadlock (HC-AC-FL) Extended Harness Placer 5.2 mm Extremities / Bony Struc FL [...] was discussed with the patient or authorized patient intake representative. The patient or authorized patient intake representative has agreed to proceed with the sensitive examination. @ 36.3 weeks Assessment & Plan Supervision of high risk in second trimester ([facility]) Orders: URINE OB DIP B/O ROUTINE, GROUP B STREPTOCOCCUS BY PCR NON-STRESS TEST; Standing Hx of preeclampsia, prior , currently ([facility]) Orders: URINE OB DIP B/O ROUTINE, GROUP B STREPTOCOCCUS BY PCR LGA (large for gestational age) ([facility]) Official us pending but AC >99 and EFW 97%- will need to discuss possible CS if EFW >5000g. Considering membrane sweeps at 37 weeks. Orders: URINE OB DIP B/O ROUTINE, GROUP B STREPTOCOCCUS BY PCR Obesity in ([facility]) Weekly NSTs Growth today Orders: NON-STRESS TEST; Standing 36 weeks gestation of ([facility]) Kick counts and labor reviewed Orders: URINE OB DIP B/O ROUTINE, GROUP B STREPTOCOCCUS BY PCR Iveth Mcfarland MD [facility] 04-18-2025 Miscellaneous Notes DM-Pt doing well. Denies vaginal Bleeding, Leaking fluid, or regular Contractions. Pt reports good movement Physical Exam: Gen: female in no apparent distress Abd: soft, Gravid. Non tender to palpation. See flow sheet Participation of a fellow, resident, medical student, or advanced practice provider student in performing the sensitive examination was discussed with the patient or authorized patient intake representative. The patient or authorized patient intake representative has agreed to proceed with the sensitive examination. @ 36.3 weeks Assessment & Plan Supervision of high risk in second trimester ([facility]) Orders: URINE OB DIP B/O ROUTINE, GROUP B STREPTOCOCCUS BY PCR NON-STRESS TEST; Standing Hx of preeclampsia, prior , currently ([facility]) Orders: URINE OB DIP B/O ROUTINE, GROUP B STREPTOCOCCUS BY PCR LGA (large for gestational age) infant ([facility]) Official us pending but AC >99 and EFW 97%- will need to discuss possible CS if EFW >5000g. Considering membrane sweeps at 37 weeks. Orders: URINE OB DIP B/O ROUTINE, GROUP B STREPTOCOCCUS BY PCR Obesity in ([facility]) Weekly NSTs Growth today Orders: NON-STRESS TEST; Standing 36 weeks gestation of ([facility]) Kick counts and labor reviewed Orders: URINE OB DIP B/O ROUTINE, GROUP B STREPTOCOCCUS BY PCR Iveth Mcfarland MD documented in this encounter [facility] 04-18-2025 Instructions Sabiha Escamilla, AYALA - 04/18/2025 2:27 PM EDT SEQUENTIAL SCREENINGS The [facility] offers sequential screenings for women who are [...] It will require an appointment with our ground control approach technician. This is not an ultrasound performed by [...] the above symptoms, contact our office at [phone] and ask to speak with a nurse. After hours, you can call doctors registry at [phone] OR call [facility] at [phone] and ask to have the doctor lens and frames prescription clerk paged. If you consider this an emergency, dial 9--1 or go to your nearest emergency department. NEED HELP? Are you dealing with a violent or abusive relationship? Are you a victim of rape or sexual assult? Call [facility] ([place]) 24 hour Crisis Hotline: 401.961.3592 or 084-063-3327. MANUAL Your Guide to a Healthy manual is now on-line. Visit [email or web address] to download your free copy documented in this encounter [facility] 04-07-2025 Telephone encounter Note 3rd risk assessment form submitted 04/07/2025. Sarah Mahmood RN [facility] 04-07-2025 Miscellaneous Notes 3rd risk assessment form submitted 04/07/2025. Sarah Mahmood RN documented in this encounter [facility] 04-04-2025 Progress note Formatting of t his [...] Supervision of high risk in second trimester ([facility]) - ICD9: V23.9, ICD10: O09.92 (primary diagnosis) - URINE OB DIP B/O 2. Hx of preeclampsia, prior , currently ([facility]) - ICD9: V23.49, ICD10: O09.299 - URINE OB DIP B/O 3. LGA (large for gestational age) ([facility]) - ICD9: 766.1, ICD10: P08.1 US next visit - URINE OB DIP B/O 4. Traumatic - ICD9: 767.9, ICD10: P15.9 5. Anxiety and depression - ICD9: 300.00, 311, ICD10: F41.9, F32.A Stable 6. 34 weeks gestation of ([facility]) - ICD9: V22.2, ICD10: Z3A.34 - URINE OB DIP B/O Sarah Youngblood MD [facility] 04-04-2025 Miscellaneous Notes S: Michael Palma is [...] Supervision of high risk in second trimester ([facility]) - ICD9: V23.9, ICD10: O09.92 (primary diagnosis) - URINE OB DIP B/O 2. Hx of preeclampsia, prior , currently ([facility]) - ICD9: V23.49, ICD10: O09.299 - URINE OB DIP B/O 3. LGA (large for gestational age) infant ([facility]) - ICD9: 766.1, ICD10: P08.1 US next visit - URINE OB DIP B/O 4. Traumatic - ICD9: 767.9, ICD10: P15.9 5. Anxiety and depression - ICD9: 300.00, 311, ICD10: F41.9, F32.A Stable 6. 34 weeks gestation of ([facility]) - ICD9: V22.2, ICD10: Z3A.34 - URINE OB DIP B/O Sarah Youngblood MD documented in this encounter [facility] 04-04-2025 Instructions Marcia Yousif MA - 04/04/2025 9:30 AM EDT SEQUENTIAL SCREENINGS The [facility] offers sequential screenings for women who are [...] It will require an appointment with our ground control approach technician. This is not an ultrasound performed by [...] the above symptoms, contact our office at [phone] and ask to speak with a nurse. After hours, you can call doctors registry at [phone] OR call [facility] at [phone] and ask to have the doctor lens and frames prescription clerk paged. If you consider this an emergency, dial 9-1-6 or go to your nearest emergency department. NEED HELP? Are you dealing with a violent or abusive relationship? Are you a victim of rape or sexual assult? Call [facility] ([place]) 24 hour Crisis Hotline: 488.334.3256 or 704-850-1762. MANUAL Your Guide to a Healthy manual is now on-line. Visit [email or web address] [email or web address] to download your free copy documented in this encounter [facility] 03-20-2025 Telephone encounter Note Noted. Thanks! Ny Ulloa MD [facility] 03-20-2025 Miscellaneous Notes Noted. Thanks! Ny Ulloa MD documented in this encounter [facility] 03-20-2025 Note Indication Evaluation of growth Maternal obesity, BMI >35 Impression - Single, live, intrauterine . - presentation is cephalic. - The biometry is accelerated for the assigned gestational dating. - The EFW is 2712 g, at the >99%. AC is at the >99%. - The amniotic fluid volume is normal amount with an MVP of 5.5 cm and an CHRIS of 16.4 cm. - The placenta is [...] 0 oz EFW by: Hadlock (HC-AC-FL) Extended Harness Placer 6.0 mm Extremities / Bony Struc FL [...] Ny Ulloa MD documented in this encounter [facility] 03-20-2025 Progress note Formatting of t his [...] PTL & FM precautions. Ny Ulloa MD [facility] 03-20-2025 Instructions Magi Landon MA - 03/20/2025 9:48 AM EDT SEQUENTIAL SCREENINGS The [facility] offers sequential screenings for women who are [...] It will require an appointment with our ground control approach technician. This is not an ultrasound performed by [...] the above symptoms, contact our office at [phone] and ask to speak with a nurse. After hours, you can call doctors registry at [phone] OR call [facility] at [phone] and ask to have the doctor lens and frames prescription clerk paged. If you consider this an emergency, dial 9-1-3 or go to your nearest emergency department. NEED HELP? Are you dealing with a violent or abusive relationship? Are you a victim of rape or sexual assult? Call [facility] ([place]) 24 hour Crisis Hotline: 926.641.4180 or 105-291-4608. MANUAL Your Guide to a Healthy manual is now on-line. Visit [email or web address] [email or web address] to download your free copy documented in this encounter [facility] 03-07-2025 Progress note Formatting of t his [...] visit ASSESSMENT/PLAN: 1. 30 weeks gestation of ([facility]) - ICD9: V22.2, ICD10: Z3A.30 (primary diagnosis) 2. Hx of preeclampsia, prior , currently ([facility]) - ICD9: V23.49, ICD10: O09.299 Normal BP Sarah Youngblood MD [facility] 03-07-2025 Miscellaneous Notes S: Michael Palma is [...] visit ASSESSMENT/PLAN: 1. 30 weeks gestation of ([facility]) - ICD9: V22.2, ICD10: Z3A.30 (primary diagnosis) 2. Hx of preeclampsia, prior , currently ([facility]) - ICD9: V23.49, ICD10: O09.299 Normal BP Sarah Youngblood MD documented in this encounter [facility] 03-07-2025 Instructions Francia Cosme LPN - 03/07/2025 1:49 PM EDT SEQUENTIAL SCREENINGS The [facility] offers sequential screenings for women who are [...] It will require an appointment with our ground control approach technician. This is not an ultrasound performed by [...] the above symptoms, contact our office at [phone] and ask to speak with a nurse. After hours, you can call doctors registry at [phone] OR call [facility] at [phone] and ask to have the doctor lens and frames prescription clerk paged. If you consider this an emergency, dial 8-1-4 or go to your nearest emergency department. NEED HELP? Are you dealing with a violent or abusive relationship? Are you a victim of rape or sexual assult? Call [facility] ([place]) 24 hour Crisis Hotline: 764.544.4665 or 051-739-0247. MANUAL Your Guide to a Healthy manual is now on-line. Visit [email or web address] to download your free copy documented in this encounter [facility] 02-24-2025 Telephone encounter Note 2nd risk assessment form submitted 02/24/2025. Sarah Mahmood RN [facility] 02-24-2025 Miscellaneous Notes 2nd risk assessment form submitted 02/24/2025. Sarah Mahmood, RN documented in this encounter [facility] 02-21-2025 Progress note Formatting of t his [...] or sooner if needed Mayelin Duran APRN.CNM [facility] 02-21-2025 Miscellaneous Notes S: Michael Palma is [...] Mayelin Duran APRN.CNM documented in this encounter [facility] 02-21-2025 Instructions Cayetano Doran MA - 02/21/2025 11:00 AM EDT SEQUENTIAL SCREENINGS The [facility] offers sequential screenings for women who are [...] It will require an appointment with our ground control approach technician. This is not an ultrasound performed by [...] the above symptoms, contact our office at [phone] and ask to speak with a nurse. After hours, you can call doctors registry at [phone] OR call [facility] at [phone] and ask to have the doctor lens and frames prescription clerk paged. If you consider this an emergency, dial 05-19- or go to your nearest emergency department. NEED HELP? Are you dealing with a violent or abusive relationship? Are you a victim of rape or sexual assult? Call [facility] ([place]) 24 hour Crisis Hotline: 816.297.8656 or 300-362-4615. MANUAL Your Guide to a Healthy manual is now on-line. Visit [email or web address] [email or web address] to download your free copy documented in this encounter [facility] 01-24-2025 Progress note Formatting of t his [...] RTO in 4 weeks Ignacia Lyon APRN.CNM [facility] 01-24-2025 Miscellaneous Notes EDDA-S: Michael Palma is [...] Ignacia Lyon APRN.CNM documented in this encounter [facility] 01-24-2025 Instructions Ignacia Lyon APRN.CNM - 01/24/2025 2:10 PM EDT SEQUENTIAL SCREENINGS The [facility] offers sequential screenings for women who are [...] It will require an appointment with our ground control approach technician. This is not an ultrasound performed by [...] the above symptoms, contact our office at [phone] and ask to speak with a nurse. After hours, you can call doctors registry at [phone] OR call [facility] at [phone] and ask to have the doctor lens and frames prescription clerk paged. If you consider this an emergency, dial 9--1 or go to your nearest emergency department. NEED HELP? Are you dealing with a violent or abusive relationship? Are you a victim of rape or sexual assult? Call [facility] ([place]) 24 hour Crisis Hotline: 255.696.7603 or 362-731-1396. MANUAL Your Guide to a Healthy manual is now on-line. Visit [email or web address] to download your free copy ROUTINE [...] diagnosed. HOW TO TAKE THIS TEST At [facility], the procedure is as follows: come [...] THE COMPUTER--go to a house phone, call [phone] or [phone] and ask the nurse to put the order in. After drinking the glucola, come to your regular appointment, making sure you return to the lab at the right time. You may call our office for the results the next day, if you are interested: [phone]. We will call you if further testing is required. documented in this encounter [facility] 12-30-2024 Progress note Formatting of t his note might be different from the original. Anatomy ultrasound reviewed. No abnormalities identified. Follow up as clinically indicated. Please place copy in ob chart. Antoinette Dickerson MD [facility] Work Phone: 12-30-2024 Miscellaneous Notes Anatomy ultrasound reviewed. No abnormalities identified. Follow up as clinically indicated. Please place copy in ob chart. Antoinette Dickerson MD documented in this encounter [facility] 12-27-2024 Progress note Formatting of t his [...] - RTO 4 weeks Mayelin Duran APRN.CNM [facility] 12-27-2024 Miscellaneous Notes S: Michael Palma is [...] Mayelin Duran APRN.CNM documented in this encounter [facility] 12-27-2024 Instructions Cayetano Doran MA - 12/27/2024 1:54 PM EDT SEQUENTIAL SCREENINGS The [facility] offers sequential screenings for women who are [...] It will require an appointment with our ground control approach technician. This is not an ultrasound performed by [...] the above symptoms, contact our office at [phone] and ask to speak with a nurse. After hours, you can call doctors registry at [phone] OR call [facility] at [phone] and ask to have the doctor lens and frames prescription clerk paged. If you consider this an emergency, dial 9-1-7 or go to your nearest emergency department. NEED HELP? Are you dealing with a violent or abusive relationship? Are you a victim of rape or sexual assult? Call [facility] ([facility] 24 hour Crisis Hotline: 449.830.2832 or 624-368-8125. MANUAL Your Guide to a Healthy manual is now on-line. Visit [email or web address] [email or web address] to download your free copy documented in this encounter [facility] 12-04-2024 Note HNO ID: [id number] Author: JOSEPH ALANIZ APRN.BATCH STILL OPERATOR Service: ? Author Type: Nurse Practitioner Type: [...] at baseline. ASSESSMENT/ELENA (more content not included)... [facility] 12-04-2024 History of Present illness Narrative Subjective [...] of care. This note was generated using Infogram software. It may contain errors in wording, punctuation, or spelling. Joseph Alaniz APRN.RUSSELL documented in this encounter [facility] 11-28-2024 Progress note Formatting of t his note might be different from the original. SW- Some RLQ pain. No vb, lof. Still taking meds for N/V. PE: Gen- NAD, well appearing Abd- Soft, NT See flowsheet A/p 16 wk gestation - H/o pre e: Cont baby ASA - Discussed upcoming expectations - RTO anatomy US and OB visit Ten Wise DO [facility] 11-28-2024 Miscellaneous Notes SW- Some RLQ pain. No vb, lof. Still taking meds for N/V. PE: Gen- NAD, well appearing Abd- Soft, NT See flowsheet A/p 16 wk gestation - H/o pre e: Cont baby ASA - Discussed upcoming expectations - RTO anatomy US and OB visit Ten Wise DO documented in this encounter [facility] 11-28-2024 Instructions Sabiha Escamilla MA - 11/28/2024 1:12 PM EDT SEQUENTIAL SCREENINGS The [facility] offers sequential screenings for women who are [...] It will require an appointment with our ground control approach technician. This is not an ultrasound performed by [...] the above symptoms, contact our office at [phone] and ask to speak with a nurse. After hours, you can call doctors registry at [phone] OR call [facility] at [phone] and ask to have the doctor lens and frames prescription clerk paged. If you consider this an emergency, dial 9-1-1 or go to your nearest emergency department. NEED HELP? Are you dealing with a violent or abusive relationship? Are you a victim of rape or sexual assult? Call [facility] ([place]) 24 hour Crisis Hotline: 344.428.7168 or 020-669-8417. MANUAL Your Guide to a Healthy manual is now on-line. Visit [email or web address] [email or web address] to download your free copy documented in this encounter [facility] 11-19-2024 Telephone encounter Note Order was signed and faxed on 11/12/24. Rachael Elena RN [facility] 11-19-2024 Miscellaneous Notes Order was signed and faxed on 11/12/24. Rachael Elena RN Maternity prescription order form received from [employer] for breast pump and supplies and given to KJ for signature. Lida Elaine RN documented in this encounter [facility] 11-12-2024 Telephone encounter Note Maternity prescription order form received from [employer] for breast pump and supplies and given to KJ for signature. Lida Elaine RN [facility] 11-07-2024 Telephone encounter Note Pt viewed results on My chart 11/07 @ 6:51 pm Peggy Hankins LPN [facility] 11-07-2024 Miscellaneous Notes Pt viewed results on My chart 11/07 @ 6:51 pm Peggy Hankins LPN Vaginal swab is positive for yeast. Since she is symptomatic Monistat has been sent to the pharmacy. FYI sent to [facility] [employer] [facility] since she is 13 weeks . documented in this encounter [facility] 11-07-2024 Telephone encounter Note 13w2d Patient called to report that she went to Urgent Care and was diagnosed with a yeast infection. Monistat cream was prescribed. Patient asking if this is okay to use in . Advised that yes, safe to use in . Sarah Devi RN [facility] 11-07-2024 Miscellaneous Notes 13w2d Patient called to report that she went to Urgent Care and was diagnosed with a yeast infection. Monistat cream was prescribed. Patient asking if this is okay to use in . Advised that yes, safe to use in . Sarah Devi RN documented in this encounter [facility] 11-07-2024 Telephone encounter Note Vaginal swab is positive for yeast. Since she is symptomatic Monistat has been sent to the pharmacy. FYI sent to [facility] [employer] RO[facility] since she is 13 weeks . [facility] 11-06-2024 Note HNO ID: [id number] Author: IGNACIA RIBEIRO APRN.BATCH STILL OPERATOR Service: ? Author Type: Nurse Practitioner Type: Progress Notes Filed: 11/06/2024 17:37 Note Text: This note was created using Angoss Softwareriter. Subjective Michael Palma is a 24 year [...] history is provided by the patient. No professor of languages was used. Vaginal Problem This is a [...] and Rhythm: No (more content not included)... [facility] 11-06-2024 History of Present illness Narrative This note was created using Angoss Softwareriter. Subjective Michael Palma is a 24 year [...] history is provided by the patient. No professor of languages was used. Vaginal Problem This is a [...] V22.2, ICD10: Z3A.19 Under care Ignacia Ribeiro APRN.BATCH STILL OPERATOR documented in this encounter [facility] 11-01-2024 Progress note Formatting of t his [...] Nausea - continue meds Ny Ulloa MD [facility] 11-01-2024 Miscellaneous Notes KJ - VB No. LOF No. CTXS No. Movement: absent. Other c/o: Nausea is improving. Medication list reviewed. Physical Exam See Flow Sheet Gen: no accute distress, well appearing A/P 12w3d Estimated Date of Delivery: 05/13/25 NT today PNB & NIPT H/o preE - start aspirin QHS Nausea - continue meds Ny Ulloa MD documented in this encounter [facility] 11-01-2024 Instructions Magi Landon MA - 11/01/2024 9:59 AM EST SEQUENTIAL SCREENINGS The [facility] offers sequential screenings for women who are [...] It will require an appointment with our ground control approach technician. This is not an ultrasound performed by [...] the above symptoms, contact our office at [phone] and ask to speak with a nurse. After hours, you can call doctors registry at [phone] OR call [facility] at [phone] and ask to have the doctor lens and frames prescription clerk paged. If you consider this an emergency, dial 9-0-7 or go to your nearest emergency department. NEED HELP? Are you dealing with a violent or abusive relationship? Are you a victim of rape or sexual assult? Call [facility] ([place]) 24 hour Crisis Hotline: 957.850.8663 or 499-490-0959. MANUAL Your Guide to a Healthy manual is now on-line. Visit [email or web address] [email or web address] to download your free copy documented in this encounter [facility] 09-30-2024 Telephone encounter Note Patient states she is drastically better, but there are still days that she is sick and today is one of those days. RAUDELI. Laura Santacruz RN [facility] 09-30-2024 Miscellaneous Notes Patient states she is drastically better, but there are still days that she is sick and today is one of those days. RAUDELI. Laura Santacruz RN 7w6d Next OB visit 11/01/23. Got original rx from [facility] on 09/14/24. Requested Prescriptions Pending Prescriptions Disp Refills ondansetron orally disintegrating (ZOFRAN ODT) 4 mg disintegrating tablet 60 tablet 2 Sig: Take 1 tablet by mouth every 8 hours as needed for nausea/vomiting. Rachael Elena RN documented in this encounter [facility] 09-30-2024 Telephone encounter Note 7w6d Next OB visit 11/01/23. Got original rx from [facility] on 09/14/24. Requested Prescriptions Pending Prescriptions Disp Refills ondansetron orally disintegrating (ZOFRAN ODT) 4 mg disintegrating tablet 60 tablet 2 Sig: Take 1 tablet by mouth every 8 hours as needed for nausea/vomiting. Rachael Elena RN [facility] 09-26-2024 Telephone encounter Note 1st risk assessment form submitted 09/26/24. Gopi Goddard RN [facility] 09-26-2024 Miscellaneous Notes 1st risk assessment form submitted 09/26/24. Gopi Goddard RN documented in this encounter [facility] 09-24-2024 Telephone encounter Note Patient called back tearful. Stated that she has been taking Vitamin B6 with no relief. Cannot keep any fluids/food down. Feels dizzy. Reports that she had to take Zofran previous and is now out of the zofran she received during previous emergency room visit. Patient told nurse that she would have her take her to the emergency room. [facility] 09-24-2024 Miscellaneous Notes Patient called back tearful. [...] for 24 hours. documented in this encounter [facility] 09-24-2024 Telephone encounter Note Left message for patient to call office. Sarah Devi RN [facility] 09-24-2024 Telephone encounter Note I would recommend vitamin B6 and 1/2 tab of unisom OTC. I know we are seeing her tomorrow but I am not going to write for a medication until she is established for with us. Small frequent sips of fluids - len kristopher. [facility] Work Phone: 09-24-2024 Telephone encounter Note 9w1d [...] to ER if continues for 24 hours. [facility] 09-24-2024 Note HNO ID: [id number] Author: MADI MOSS APRN.BATCH STILL OPERATOR Service: ? Author Type: Nurse Practitioner Type: Progress Notes Filed: 09/25/2024 10:16 Note Text: Msws offered: Patient declines. INITIAL OB ASSESSMENT HPI: [...] harming myself has occurred to me. Never [place] Depression Scale Total 4 Feeling nervous, anxious [...] Status: Partner: Name: Pato Age: 23 Occupation: Comber Operator Gender: Male PAST MEDICAL HISTORY Diagnosis Date Allergic rhinitis Anemia During first Asthma Concussion 2019 Depression Elevated liver enzymes 09/2019 Due to mono History of depression First Hx of preeclampsia, prior , currently During first Mononucleo (more content not included)... [facility] 09-24-2024 History of Present illness Narrative Msws offered: Patient declines. INITIAL OB ASSESSMENT HPI: [...] harming myself has occurred to me. Never [place] Depression Scale Total 4 Feeling nervous, anxious [...] Status: Partner: Name: Pato Age: 23 Occupation: Comber Operator Gender: Male PAST MEDICAL HISTORY Diagnosis Date [...] discussed with the Patient or Patient's Authorized Carbon Grinder. As applicable, any other physician, advance practice provider, medical student, or other health professional student that will be observing or involved in the sensitive examination for educational or training purposes was discussed with the Patient or Authorized Carbon Grinder. The Patient or Authorized Carbon Grinder has agreed to proceed with the sensitive [...] Your guide to a health and the Rouge Sifter. Discussed hemoglobin electrophoresis. Patient: Accepts Reviewed midwifery and director of operations support services that are available. 2) Screening: Hemoglobin [...] (28-30 weeks): [] Consent [] Contraception [] Senior Principal Process Engineer [] TeamBirth handout Third trimester (36-40 weeks): [] GBS [] Presentation - [] Scheduled [] yes - Hibiclens, pre-op instructions, CBC, T&S ordered [] no [] H&P [] Preferences worksh With Uncertain Dates in First Trimester - 09/25/2024 Comment: September 25, 2024 POCUS not consistent with LMP. Confirm AMADOR with NT Madi Moss APRN.BATCH STILL OPERATOR Nausea and Vomiting During - 09/25/2024 Comment: [...] Madi Moss APRN.CNP documented in this encounter [facility] 09-24-2024 Instructions Madi Moss APRN.CNP - 09/24/2024 8:14 AM EST Images from the original note were not included. Please select the following link to access the [facility] Your Guide to a Healthy . [email or web address] Please select the following link to access the [facility] Your Guide to a Healthy . [email or web address].Ccf.org/healthypregnancyguide Psychotherapy Services at [facility] Call Ecometrica Access Line at [phone] to schedule Individual psychotherapy In-person or virtual Wait time for first evaluation may be 12 or more weeks. Wait list spots may be available. Due to the high volume of patients this option is recommended if you are looking for short term acute symptom coping strategies. 7-143-9-BTRP3YPGY - [place] Maternal Mental Health Hotline If you are in suicidal crisis, please call or text 1-449-138-TALK ( ) or visit the National Suicide Prevention Lifeline website. mchb.presbyterian hospital[facility].gov If you are in crisis, call 911 or go to your nearest Emergency Department Here are some links for wonderful Providers here in the community and surrounding areas. Do not hesitate to contact their offices, many are offering virtual visits during this time. Psychotherapy Services outside of [facility] Support International Online Provider Directory https://Wunsch-Brautkleid.PlumWillow/ - can assist in finding providers in your area that might be more extensive then the list below. [facility] [place], [place] [address] [place] [address] [facility] [address] [place] [address] [facility] [address] [place] [address] [facility] [address] [place] [address] Conner Rosenberg MD [address] [place] [address] [facility] [address] [facility], [address] [place] [address] [facility] Psychiatric Services [address] [place] [address] [facility] Counseling Services [place] / [place] [phone]/ [phone] Dulce Forbes [address] [facility] [phone] Aves of Counseling and Mediation [place] / [place] [phone] Behavioral health services of critical access hospital [address] [place] [address]/ [place] and [place] in [place] [phone] Emily Marshall, ALESSIO, CLC Bu and Beyond Family Therapy Workshops, telehealth and at home visits. [phone] Humanistic counseling center 20 locations [place], [place], [place], [place], [place], [place], [place], [place], [place], [place], [place], [place], [place], [place], [facility], [place], [place] ,[facility], [place], [place],[facility], south [place], [place], [facility] hts, [place], [place] www.Snoox [phone] Psychotherapy resources outside of [facility] are listed below [facility] HOSTING Psychotherapy Web: https://www.Lionsharp Voiceboard/ Support International Online Provider Directory https://Back&/ Insight [facility] https://Waddapp.com/ Money-Wizards for Behavioral Health and Wellness Web: https://Bridgevine/ [facility] Effective Living Web: https://Cavium/ LifeStance Web: https://TopiVert.PlumWillow/location/[facility]/[place]/ [facility] Web: https://www.[facility].org / [facility] Web: https://Cityblis.KnCMiner/ Recovery Resources Mental health and substance abuse help Web: https://www.DeepFields.KnCMiner & RESOURCES Support International Direct peer support and connection to professional resources Non-Emergency Helpline Phone: / Text: [phone] Web: https://www..net/ Online Provider Directory: https://Back&/ Online Support Meetings: https://www..net/get-hel p/jek-xsrocv-llsctof-meetings/ JUDE Baby and Registered Nurse Surgical Services Services Web: https://wwwToygaroo.com/ MotherToBaby Expert information on medication use during and Text: [phone] Web: https://mothertobaby.org/ NATIONAL REGISTRY FOR PSYCHIATRIC MEDICATIONS Currently studying the safety of antidepressants, ADHD medications and atypical antipsychotics taken during TO PARTICIPATE CALL TOLL-FREE: Web: https://[facility].org/res earch/pregnancyregistry/ Support Groups: [facility]- Follow on facebook Baby Bistro support group led by [facility] department Resilient Mamas - Support Group [facility]ilselect [facility] ohiomamas.org The POEM support group [phone] Www.poemonline.org Follow on facebook - ADAN beard Online support meetings PSI https://www..net/get-hel p/ifg-thqjwx-iznblpc-meetings/ [facility] mommy and me virtual support group 11:30-1pm Support for mothers and new babies and toddlers [place] childbirth education: Childbirth @the medical center.org or call [phone] CRISIS: CRISIS HOTLINE [phone], 911 or go to the nearest . [facility] [phone] / [facility] [phone] https://www.[facility].org Crisis text line text the word HOME to 8[address]293 [facility] [address] [facility] [address] [facility] [address] www.Comet Solutions Galina Cunningham clinical counseling [address] [address] www.ArtooriStep Labs.PlumWillow [phone] Holding [facility] psychotherapy Lizbeth Otoole SLICE PLUG CUTTER OPERATOR LIFE CARE PLANNER-S [address] [facility] www.SigmaFlow [phone]/ [place] [phone] They all offer virtual. All work with trauma Support groups Online support meetings PSI https://www..net/get-hel p/ipp-qothek-vkixuqt-meetings/ Here are the support groups they offer: [...] Monday of each month Location: Kwesi Salazar [facility] [address] [place] [address] Room 122 (library room) 7-8:00 p.m. When you enter the [facility] parking lot off of [address] the entrance door closest to our meeting room is on the front of the building toward the right. For those who are more comfortable with a virtual platform, DataXu offers online support group options several days of the week. To register for an online group or to find out more about PO, website at: https://Soundropaohio.org/get-help/[facility] ni[facility] hospitalqpw-epwpgy-fkadft/poem-services/ offer a confidential helpline: private Facebook group is called ADAN Raymundo Beard Here are the groups they offer: Traumatic childbirth resources: Http://pattch.org/ https://www.Triplejump GroupradhaServiceFrame/ Name Location (s) Phone # (s) Services Website [facility] Psychotherapy [address] [place], [place] - [phone]; [address] [phone] In-Person GROUPS INDIVIDUAL THERAPY MATERNAL-INFANT MENTAL HEALTH MEDICATION MANAGEMENT PLAY AND ART THERAPY TELETHERAPY https://www.Lionsharp Voiceboard/se rvices/ [place]ian[place] [facility] [place] RAYMUNDO? [address] [place], [place] [address] ? [address], [address] [place], [place] [address] ? SUMMERS [address] [place] [phone]? Grief Support Groups Individual Grief Counseling Spiritual Care [facility] https://raymundo.[facility] e.org/grief-services [facility] [address] [place], [place] [address]; ; Email: [email or web address] Women's Mental Health; Couples Counseling; Trauma (EMDR); Stress Management; Mood and Anxiety Related Disorders- and much more https://www.ScanSocial/ LifeStance Numerous as they have contract providers: access website to find specific providers near you Counseling including CBT and EMDR as well as many more modalities; Medication Management; Telehealth and In-Person https://Synergis Education/ Money-Wizards for Behavioral Health and Wellness [address] [place], [place] [address]; [phone] Personal, Family and Group Therapy; Psychological Testing and Diagnosis; Medication Management; Life and Career Coaching; Psychoanalysis; Literacy Testing; Yoga and Meditation https://Bridgevine/ Balls.ie [facility] [address] [facility] [address], [place] [address] [address] ; [address] [facility], [address] [place] [address]; Office # for both sites: Individual and Couples Counseling https://www.9flats.PlumWillow/p aymentinsurance.html OCD & Anxiety [facility] [address] [facility], [address], [place] [address]; Specialize in Cognitive-Behavioral Therapy (CBT) for the treatment of anxiety disorders across the lifespan. TELEHEALTH ONLY. https://ocdandanxietycentXtremIO/faqs [facility] [address] [facility] [address]th [place], [address] [place] [address] [facility] [place], [address] [place] [address] [place], [address] [place] [address] [place], [address], [address] [place] [address] [place] [address]. [place], [address] [place] [address] [place], [place], [id number] Transportation Services To minimize patient barriers, [facility] provides transportation services to patients who qualify. If you are unable to get to your appointment at any of our facilities, please let us know. Need help now? Stop by one of our walk-in clinics to establish behavioral health care. Counseling Indvidual, Group, Couples and Family Counseling and EMDR. Medication Management Case Management benefits applications housing assistance Substance abuse treatment Medication assisted treatment https://www.[facility].org /mental-health/ [facility] OFFICE AT [facility] [address] [place] [address] [facility] OFF[facility] [address] [place] [address] [facility]ICE [address] [place], [place] [address] [facility] OFFICE (at [facility]) [address] [place] [address] [facility] SYRINGE EXCHANGE PROGRAM & HIV SCREENING [address] [place] [address] VAN [facility] EXCHANGE PROGRAM [address] [place] [address] Behavioral Health Urgent Care: [facility] [place] [facility] Counseling Indvidual and Group Medication Management Case Management benefits applications housing assistance Substance abuse treatment Medication assisted treatment Employment Services/ Job Training https://theTexxi.org/ Recovery Resources [address] [place], [place] [address]: P: [phone] [address] [facility], [address], [place] [address] P: [phone] Our services include: Addiction Mental Health Treatment Assessment Psychiatry Medical Care Employment Housing Drug and Alcohol Prevention HIV/AIDS Prevention https://www.recres.org/ [facility] [place] [address] [place] [address] [place] [address] [place], [place] [address] [place] [address] [place] [address] [place] [address] [facility] [address] [place] [address] [place] [address] [place] [address] TMS Therapy/ Counseling Psychocological Testing for ADHD Medication Management In-Person/ Telemedicine https://www.iVinci Health.com/gabriele nts-depression Memory & Psychological services [address], [place] [address] Neuropsychological Testing For ADHD https://www.memoryandpsych.com/ [facility] Office [address] [place] [address] [id number] Providing vrdz-vl-ratl and telehealth services. Adult Case Management Community Education and Prevention Employment Outpatient Treatment - Counseling & Psychotherapy Psychiatric Services http://www.ccc.org/ [facility] [place] [address] [place] [address] [facility]) [address] [place] [address] Virtual Appointments! Now offering safe and convenient virtual client appointments to anyone in [place]! Individual Therapy Couples/Relationship Therapy Trauma/EMDR Therapy Art Therapy Play Therapy Drainage Design Coordinator Support: Parenting Skills, Parent Child Interaction Therapy, Parent Interaction Therapy Meditation Dietitian/Agricultural Engineering Teacher Services Group Therapy Yoga https://www.ebbandflowcounseling.c casper/ Laisha Mckinney [phone] Private Practice: Telehealth Only Specializes in EMDR [...] to help control my nausea and vomiting? MotherKirkland Partners has a helpful fact sheet on nausea in with recommendations. You can review it here: https://mothertobaby.org/fact-shee ts/aabnkm-vnedvqmk-vjbzlsgru-nvp/p df/. Also, eating small meals often, drinking [...] . For more information, please see the MotherCorsair fact sheet Paternal Exposures at https://mothertobaPrivatext.org/fact-shee ts/vovwiktt-mbwkecmwo-zvjnonfak/pd f/. MORNING SICKNESS IN by Valentine Allison M.D. for Lockr As you may already know, morning sickness can often be more appropriately called evening sickness or hrpos-trqwby-kq-the-day sickness. While there are the yamile few, [...] medication, Doxylamine, is currently marketed as an iguy-obq-wpaskkl sleeping pill. Ask your practitioner if creating a vitamin B6/Doxylamine combination with zvky-wbt-srefgxz medications would be safe for you. Prescription [...] Phenergan, Compazine, Reglan documented in this encounter [facility] 09-13-2024 Telephone encounter Note LMP 07/22/24 - w4d Calling c/o n/v. Hasn't been able to keep anything down since about noon yesterday. Advised to go to ER for IV fluids and medication. Encouraged to call to schedule n/v f/u after if needed. Discussed vitamin B6 and Unisom too. NOB scheduled for 09/25/24. Only need to call with further advice. Rachael Elena RN [facility] 09-13-2024 Miscellaneous Notes LMP 07/22/24 - 7w4d [...] Rachael Elena RN documented in this encounter [facility] 05-06-2024 Note HNO ID: [id number] Author: MADI MOSS APRN.BATCH STILL OPERATOR Service: ? Author Type: Nurse Practitioner Type: Progress Notes Filed: 05/06/2024 16:36 Note Text: Msws offered: Patient declines. Michael is a 23 [...] 24 hours. Contraceptive plans: condoms Madi Moss APRN.[facility] 05-06-2024 History of Present illness Narrative Msws offered: Patient declines. Michael is a 23 [...] Madi Moss APRN.CNP documented in this encounter [facility] 05-03-2024 Note Addended by: MADI MOSS on: 05/03/2024 04:16 PM Modules accepted: Orders [facility] 05-03-2024 Miscellaneous Notes Addended by: MADI MOSS on: 05/03/2024 04:16 PM Modules accepted: Orders Addended by: MADI MOSS on: 05/03/2024 03:39 PM Modules accepted: Orders Addended by: MADI MOSS on: 05/03/2024 02:38 PM Modules accepted: Orders documented in this encounter [facility] 05-03-2024 Note Addended by: MADI MOSS on: 05/03/2024 03:39 PM Modules accepted: Orders [facility] 05-03-2024 Note Addended by: MADI MOSS on: 05/03/2024 02:38 PM Modules accepted: Orders [facility] 05-03-2024 Instructions Madi Moss APRN.CNP - 05/03/2024 2:06 PM EDT Images from the original note were not included. ____ *Revaree is a NAMS recommended, leading selling vaginal insert for the relief of symptoms of vaginal atrophy and the samaritan of the vagina's epithelial lining and pH -- hormone free. In oocu-pv-eodi clinical trials, Revaree performed as well as [...] or smoking cessation program, such as the [facility] Smoking Cessation Program. For more information, please [...] smoke. (This information is provided by the [facility] and is not intended to replace the medical advice of your doctor or health care provider. Please consult your health care provider for advice about a specific medical condition. For additional written health information, please call the Cancer Answer Line at [facility] Monday - Monday 8-4:30 for assistance: [phone]. Or visit www.[facility]/health/) A 3-dose schedule is recommended for people [...] (no maximum interval). documented in this encounter [facility] 05-03-2024 Note HNO ID: [id number] Author: MADI OMSS APRN.CNP Service: ? Author Type: Nurse Practitioner Type: Progress Notes Filed: 05/03/2024 14:27 Note Text: Msws offered: Patient declines. Michael is a 23 [...] OB History No obstetric history on file. Statistical Machine Mechanic History LMP: 01/18/2024, Having periods Age at Menarche: Age at First : Age at Menopause: Statistical Machine Mechanic History Comments: Sexual Activity: Yes; Male Contraception: [...] external genitalia normal, normal Bartholin's glands, urethra, [facility]'s glands, no vulvar lesions, no cervical lesions, [...] PROGRAM RTO for Nexplanon removal. Madi Moss, RECORD TESTER.BATCH STILL OPERATOR Medical Decision Making: Problems: Low: Acute, uncomplicated illness or injury Data: Unique test(s) ordered: 3+ Risk: Low: Low risk from testing/treatment Medical Decision Making Level: 3 - Low [facility] 05-03-2024 History of Present illness Narrative Msws offered: Patient declines. Michael is a 23 [...] OB History No obstetric history on file. 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 Madi Moss APRN.CNP Medical Decision Making: Problems: Low: Acute, uncomplicated illness or injury Data: Unique test(s) ordered: 3+ Risk: Low: Low risk from testing/treatment Medical Decision Making Level: 3 - Low documented in this encounter [facility] 01-28-2024 History of Present illness Narrative CC: [...] RELIEF) 50 mcg/actuation nasal spray Use 1 Hegins in each nostril twice daily. (Patient not [...] Sophy Ulloa APRN.RUSSELL documented in this encounter [facility] 10-30-2023 History of Present illness Narrative Radiology [...] PATIENT PRESENTS WITH AN IMPLANTABLE OR ATTACHED MEAT TRIMMER: No RADIOLOGY DEPARTMENT: General X-ray: Exam(s) Completed: Lower Extremity X-Ray(s): Toes, Right PERIPHERAL IV DATA: Not applicable SIGNED BY: RT Graciela(Deandre) October 30, 2023 11:42 AM documented in this encounter [facility] 10-30-2023 History of Present illness Narrative Images [...] history is provided by the patient. No professor of languages was used. Review of Systems Constitutional: Negative. [...] RELIEF) 50 mcg/actuation nasal spray Use 1 Hegins in each nostril twice daily. (Patient not [...] IMPRESSION IMPRESSION: Acute fifth proximal phalanx fracture. Palliative Care Coordinator: SHAN Transcribe Date/Time: Oct 30 2023 12:08P Dictated by : AGNIESZKA CUNNINGHAM MD Patient was instructed to lori tape for comfort. Take it easy for couple weeks alternate Tylenol Motrin and follow-up with primary care if signs and symptoms seem to be getting worse not better. Patient was okay with this care plan. Sophy Ulloa APRN.RUSSELL documented in this encounter [facility] 10-30-2023 History of Present illness Narrative Radiology [...] PATIENT PRESENTS WITH AN IMPLANTABLE OR ATTACHED MEAT TRIMMER: No RADIOLOGY DEPARTMENT: General X-ray: Exam(s) Completed: Chest X-Ray PERIPHERAL IV DATA: Not applicable SIGNED BY: RT Graciela(R) October 30, 2023 10:58 AM documented in this encounter [facility] 10-29-2023 History of Present illness Narrative Subjective [...] RELIEF) 50 mcg/actuation nasal spray Use 1 Hegins in each nostril twice daily. (Patient not [...] - XR CHEST 2V FRONTAL/LAT Lester Darrel, RECORD TESTER.RUSSELL documented in this encounter [facility] 05-15-2023 History of Present illness Narrative Subjective [...] RELIEF) 50 mcg/actuation nasal spray Use 1 Hegins in each nostril twice daily. (Patient not [...] V12.69, ICD10: Z87.09 Prednisone ordered. Lester Rojo APRN.BATCH STILL OPERATOR documented in this encounter [facility] 03-15-2023 Miscellaneous Notes Left message for patient with negative results.Ni Hahn LPN Left message for pt to call back. Charis Gómez MA Negative covid and flu. documented in this encounter [facility] 03-15-2023 History of Present illness Narrative This note was created using MoPalster. Subjective Michael Salomon is a 22 year [...] RELIEF) 50 mcg/actuation nasal spray Use 1 Hegins in each nostril twice daily. (Patient not [...] Torri Park PA-C documented in this encounter [facility] 11-28-2022 History of Present illness Narrative Subjective HPI Nontoxic-appearing female presents urgent care chief complaint flulike symptoms. Duration of symptoms 4 days. Associated symptoms with today's chief complaint are on and off headache, muscle aches, fatigue, nonproductive cough, and fever. Has been afebrile for 24 hours. Does have new onset right ear pain. Patient states they have used jpmj-ett-twqzpsh medication with some success. States sick contacts [...] RELIEF) 50 mcg/actuation nasal spray Use 1 Hegins in each nostril twice daily. (Patient not [...] mastoid tenderness. Nose: Congestion present. Mouth/Throat: Lips: Hooker. Mouth: Mucous membranes are moist. Pharynx: Oropharynx [...] of care. This note was generated using Infogram software. It may contain errors in wording, punctuation, or spelling. Joseph Alaniz APRN.BATCH STILL OPERATOR documented in this encounter [facility] 05-30-2022 Note HNO ID: [id number] Author: Shayna Louis LPN Service: ? Author Type: LICENSED NURSE Type: Progress Notes Filed: 05/31/2022 2:29 PM Note Text: TRANSITIONAL CARE MANAGEMENT (TCM) COMMUNITY MONITORING PROGRAM - CONRAD Provider Action/FYI: SUMMARY: Pt discharged from [facility] on 05/28/2022. Admitted for: Labor and delivery Risk score: unknown Contact made with patient: No - 2nd unsuccessful attempt - end outreach and close encounter Outreach ended Unable to reach pt. Shayna Louis LPN TRANSITIONAL CARE MANAGEMENT (TCM) COMMUNITY MONITORING PROGRAM - MILUZ Provider Action/FYI: SUMMARY: Pt discharged from [facility] on 05/28/2022. Admitted for: Labor and delivery Risk score: unknown Contact made with patient: No - next outreach attempt will be on next Outreach ended Unable to reach patient via telephone, next outreach attempt will be 05/31/2022. Shayna Louis LPN [facility] 05-30-2022 Note Patient Outreach (AG INTMLW) MICHAEL SALOMON ([id number]) 01 F [facility] Date Time Provider Department 05/30/22 SHAYNA LOUIS AGINTMLW During your visit today, we recorded the following information about you: Shayna Louis LPN 05/31/2022 2:29 PM Addendum TRANSITIONAL CARE MANAGEMENT (TCM) COMMUNITY MONITORING PROGRAM - MILUZ Provider Action/FYI: SUMMARY: Pt discharged from [facility] on 05/28/2022. Admitted for: Labor and delivery Risk score: unknown Contact made with patient: No - 2nd unsuccessful attempt - end outreach and close encounter Outreach ended Unable to reach pt. Shayna Louis LPN TRANSITIONAL CARE MANAGEMENT (TCM) COMMUNITY MONITORING PROGRAM - [place]AKIA Provider Action/FYI: SUMMARY: Pt discharged from [facility] on 05/28/2022. Admitted for: Labor and delivery Risk score: unknown Contact made with patient: No - next outreach attempt will be on next day Outreach ended Unable to reach patient via telephone, next outreach attempt will be 05/31/2022. Shayna Louis LPN Allergies As of Date: 05/30/2022 (No Known Allergies) Date Reviewed: 12/22/2021 Reviewed by: Cindi Fernandez APRN.BATCH STILL OPERATOR - Fully Assessed Reason for Visit: Transition Of Care [4074] Cmt: [facility] discharge 05/28/2022 TCM encounter Prescriptions as of 05/31/2022 - fluticasone (FLONASE ALLERGY RELIEF) 50 mcg/actuation nasal spray Use 1 Hegins in each nostril twice daily. - albuterol [...] Encounter Status:Closed by SHAYNA LOUIS on 05/30/22 [facility] 11-29-2021 Note HNO ID: [id number] Author: Mendoza Negro MD Service: ? Author Type: Physician Type: Progress Notes Filed: 11/29/2021 6:01 PM Note Text: VIRTUAL VISIT PROGRESS NOTE This is a virtual visit using [employer] video visit. It required patient-provider interaction for [...] to high risk doctor. 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 Pulse oxygen did not drop during COVID. [...] Healthy, NAD. 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 ASSESSMENT/PLAN: 1. JESUS positive - ICD9: 795.79, [...] which included preparing to see the patient, rdvd-ku-verf patient care, completing clinical documentation, obtaining and/or reviewing separately obtained history, performing a medically appropriate examination, counseling and educating the patient/family/caregiver, ordering medications, tests, or procedures, communicating with other HCPs (not separately reported), independently interpreting results (not separately reported) and communicating results to the patient/family/caregiver. Provider Location: [facility] Patient Location: Patient Home or Place of Residence Medical Decision Making [facility] 10-25-2019 History of Past i llness Narrative Problem Noted Date Resolved Date Hepatitis A antibody positive 10/25/2019 Jaundice 10/10/2019 11/10/2020 Post concussion syndrome 06/28/2018 020 documented as of this encounter (statuses as of 11/28/2022) [address] History of Past illness Narrative* Problem Noted Date Resolved Date Hepatitis A antibody positive 10/25/2019 Jaundice 10/10/2019 11/10/2020 Post concussion syndrome 06/28/2018 020 documented as of this encounter (statuses as of 03/15/2023) [address]07-2020 History of Past illness Narrative* Problem Noted Date Resolved Date Hepatitis A antibody positive 10/25/2019 Jaundice 10/10/2019 11/10/2020 Post concussion syndrome 06/28/2018 020 documented as of this encounter (statuses as of 03/16/2023) [address] History of Past illness Narrative* Problem Noted Date Diagnosed Date Resolved Date Hepatitis A antibody positive 10/25/2019 11/10/2020 Jaundice 10/10/2019 11/10/2020 Post concussion syndrome 06/28/2018 documented as of this encounter (statuses as of 05/15/2023) [address] History of Past illness Narrative* Problem Noted Date Diagnosed Date Resolved Date Hepatitis A antibody positive 10/25/2019 11/10/2020 Jaundice 10/10/2019 11/10/2020 Post concussion syndrome 06/28/2018 documented as of this encounter (statuses as of 10/29/2023) [address] History of Past illness Narrative* Problem Noted Date Diagnosed Date Resolved Date Hepatitis A antibody positive 10/25/2019 11/10/2020 Jaundice 10/10/2019 11/10/2020 Post concussion syndrome 06/28/2018 documented as of this encounter (statuses as of 10/30/2023) [facility] Diagnosis Supervision of high risk in second trimester Unspecified high-risk Maternal obesity, antepartum Edema or excessive weight gain, antepartum documented in this encounter [facility] Work Phone: Evaluation noteNo assessment information available [facility] Work Phone: [facility] note* Diagnosis Onset Date Resolution Status Gestational hypertension acu te acute Vaginal delivery acute [facility] Work Phone: evaluation note* Diagnosis Suspected COVID-19 virus infection- Primary Acute otitis media, right Unspecified otitis media documented in this encounter [facility] note* Diagnosis Sore throat- Primary Acute pharyngitis Viral URI Acute upper respiratory infections of unspecified site Acute otitis media, bilateral Unspecified otitis media documented in this encounter [facility] note* Diagnosis URI, acute- Primary Acute upper respiratory infections of unspecified site Sore throat Acute pharyngitis History of asthma Personal history of other diseases of respiratory system documented in this encounter [facility] note* Diagnosis Viral syndrome- Primary Unspecified viral infection, in conditions classified elsewhere and of unspecified site Rhonchi at right lung base documented in this encounter [facility] note* Diagnosis Pain- Primary Generalized pain documented in this encounter [facility] note* Diagnosis Rhinosinusitis- Primary Unspecified sinusitis (chronic) documented in this encounter [facility] note* Diagnosis Encounter for gynecological examination (general) [...] serious comorbidity present documented in this encounter [facility] note* Diagnosis Nexplanon removal- Primary Surveillance of previously prescribed implantable subdermal contraceptive Screening for STD (sexually transmitted disease) Screening examination for venereal disease documented in this encounter [facility] note* Diagnosis Pain Generalized pain documented in this encounter [facility] note* Diagnosis Encounter for supervision of high [...] depression Dysthymic disorder [facility] Diagnosis Supervision of high risk in first trimester- Primary Unspecified high-risk Hx of preeclampsia, prior , currently with other poor obstetric history Obesity affecting in first trimester, unspecified obesity type 12 weeks gestation of state, incidental [facility] Diagnosis 12 weeks gestation of - Primary state, incidental Encounter for supervision of high risk in first trimester, antepartum [facility] Diagnosis Urinary frequency- Primary Vaginal discharge Leukorrhea, not specified as infective 19 weeks gestation of state, incidental [facility]* Diagnosis BV (bacterial vaginosis)- Primary Vaginitis and vulvovaginitis, unspecified [facility]* Diagnosis Obesity affecting in first trimester, unspecified obesity type- Primary 16 weeks gestation of state, incidental Supervision of high risk in second trimester Unspecified high-risk [facility]* Diagnosis Bacterial sinusitis- Primary Unspecified sinusitis (chronic) [facility] Diagnosis Supervision of high risk in second trimester (HCC)- Primary Unspecified high-risk Hx of preeclampsia, prior , currently (HCC) with other poor obstetric history Obesity affecting in second trimester, unspecified obesity type (HCC) 20 weeks gestation of ([facility]) state, incidental Traumatic trauma, unspecified [facility]* Diagnosis Encounter for anatomic survey ([facility])- Primary Encounter for anatomic survey 20 weeks gestation of ([facility]) state, incidental Obesity affecting in second trimester, unspecified obesity type (HCC) [facility] Diagnosis Supervision of high risk in second trimester (HCC)- Primary Unspecified high-risk 24 weeks gestation of ([facility]) state, incidental Obesity affecting in second trimester, unspecified obesity type ([facility]) Hx of preeclampsia, prior , currently ([facility]) with other poor obstetric history Traumatic trauma, unspecified Anxiety and depression Dysthymic disorder Heartburn during in first trimester ([facility]) documented in this encounter [facility] note* Diagnosis Screening for diabetes mellitus- Primary Supervision of high risk in second trimester ([facility]) Unspecified high-risk Hx of preeclampsia, prior , currently ([facility]) with other poor obstetric history Traumatic trauma, unspecified Anxiety and depression Dysthymic disorder 28 weeks gestation of ([facility]) state, incidental Obesity affecting in second trimester, unspecified obesity type ([facility]) documented in this encounter [facility] note* Diagnosis 30 weeks gestation of ([facility])- Primary state, incidental Hx of preeclampsia, prior , currently ([facility]) with other poor obstetric history documented in this encounter [facility] note* Diagnosis Hx of preeclampsia, prior , currently ([facility])- Primary with other poor obstetric history LGA (large for gestational age) infant ([facility]) Other ebexe-xlw-ntzad infants * Assessment & Plan Note - Ny Ulloa MD - 03/20/2025 10:17 AM EDTAssociated Problem(s): Hx of preeclampsia, prior , currently ([facility]) * Assessment & Plan Note - Ny Ulloa MD - 03/20/2025 10:17 AM EDTAssociated Problem(s): LGA (large for gestational age) infant ([facility]) EFW >99%. Discussed 39 week IOL. Repeat growth US in 4 weeks. documented in this encounter [facility] note* Diagnosis Encounter for ultrasound to check growth ([facility])- Primary Encounter for routine screening for malformation using ultrasonics Obesity affecting in second trimester, unspecified obesity type ([facility]) 32 weeks gestation of ([facility]) state, incidental Hx of preeclampsia, prior , currently ([facility])- Primary with other poor obstetric history LGA (large for gestational age) ([facility]) Other oxvwh-kvu-burmc infants [facility]* Diagnosis Hx of preeclampsia, prior , currently ([facility])- Primary with other poor obstetric history LGA (large for gestational age) infant ([facility]) Other gcbrq-sgo-ctgcz infants Supervision of high risk in second trimester ([facility])- Primary Unspecified high-risk Hx of preeclampsia, prior , currently ([facility]) with other poor obstetric history LGA (large for gestational age) ([facility]) Other buyox-tuj-guydj infants Traumatic trauma, unspecified Anxiety and depression Dysthymic disorder 34 weeks gestation of ([facility]) state, incidental documented in this encounter [facility] note* Diagnosis Hx of preeclampsia, prior , currently ([facility])- Primary with other poor obstetric history LGA (large for gestational age) infant ([facility]) Other ugwjn-uev-cevcm infants Supervision of high risk in second trimester ([facility])- Primary Unspecified high-risk Hx of preeclampsia, prior , currently ([facility]) with other poor obstetric history LGA (large for gestational age) ([facility]) Other bzldj-ugw-mlwon infants Obesity in ([facility]) Obesity complicating , childbirth, or the puerperium, unspecified as to episode of care or not applicable 36 weeks gestation of ([facility]) state, incidental * Assessment & Plan Note - Iveth Walker MD - 04/18/2025 2:56 PM EDT Associated Problem(s): Hx of preeclampsia, prior , currently ([facility]) Orders: URINE OB DIP B/O ROUTINE, GROUP B STREPTOCOCCUS BY PCR * Assessment & Plan Note - Iveth Walker MD - 04/18/2025 2:56 PM EDT Associated Problem(s): LGA (large for gestational age) ([facility]) Official us pending but AC >99 and EFW 97%- will need to discuss possible CS if EFW >5000g. Considering membrane sweeps at 37 weeks. Orders: URINE OB DIP B/O ROUTINE, GROUP B STREPTOCOCCUS BY PCR documented in this encounter [facility] note* Diagnosis Hx of preeclampsia, prior , currently ([facility])- Primary with other poor obstetric history LGA (large for gestational age) ([facility]) Other qfijw-fqb-hddjz infants Encounter for ultrasound to check growth ([facility])- Primary Encounter for routine screening for malformation using ultrasonics Obesity affecting in second trimester, unspecified obesity type ([facility]) 36 weeks gestation of ([facility]) state, incidental Supervision of high risk in second trimester ([facility])- Primary Unspecified high-risk Hx of preeclampsia, prior , currently ([facility]) with other poor obstetric history LGA (large for gestational age) infant ([facility]) Other zdyfl-vjv-xlrct infants Obesity in ([facility]) Obesity complicating , childbirth, or the puerperium, unspecified as to episode of care or not applicable 36 weeks gestation of ([facility]) state, incidental documented in this encounter [facility] note* Diagnosis Hx of preeclampsia, prior , currently ([facility])- Primary with other poor obstetric history LGA (large for gestational age) ([facility]) Other orfsy-rxh-iujsr infants Supervision of high risk in second trimester ([facility])- Primary Unspecified high-risk Hx of preeclampsia, prior , currently ([facility]) with other poor obstetric history LGA (large for gestational age) infant ([facility]) Other lnjeo-rls-giuqf infants Obesity in ([facility]) Obesity complicating , childbirth, or the puerperium, unspecified as to episode of care or not applicable 36 weeks gestation of ([facility]) state, incidental 37 weeks gestation of ([facility])- Primary state, incidental Supervision of high risk in second trimester ([facility]) Unspecified high-risk Obesity in ([facility]) Obesity complicating , childbirth, or the puerperium, unspecified as to episode of care or not applicable documented in this encounter [facility] for referral (narrative)* Diagnostic Procedure Only (Urgent) - Closed Specialty Diagnoses / Procedures Referred By Contac t Referred To Contact XR IMAGING Diagnoses Pain Procedures XR TOE AP/LAT/OBL RIGHT RADEX TOE MINIMUM 2 VIEWS Sophy Ulloa APRN.BATCH STILL OPERATOR [address] [place] [address] [place] [address] Referral ID Status Reason Start Date Expiration Date V isits Requested Visits Authorized [id number] Closed Auto-Generate d Referral 10/30/2023 11/28/2024 1 1 [facility] for referral (narrative)* Diagnostic Procedure Only (Urgent) - Closed Specialty Diagnoses / Procedures Referred By Contac t Referred To Contact XR IMAGING Diagnoses Pain Procedures XR TOE AP/LAT/OBL RIGHT RADEX TOE MINIMUM 2 VIEWS Sophy Ulloa APRN.BATCH STILL OPERATOR [address] [place] [address] [place] [address] Referral ID Status Reason Start Date Expiration Date V isits Requested Visits Authorized [id number] Closed Auto-Generate d Referral 10/30/2023 11/28/2024 1 1 [facility] for referral (narrative)* Diagnostic Procedure Only (Routine) - Authorized Specialty Diagnoses / Procedures Referred By Contac t Referred To Contact [facility] Diagnoses Encounter for supervision of high risk in first trimester, antepartum Procedures NUCHAL TRANSLUCENCY WHI US NUCHAL TRANSLUCENCY 1ST GESTATION Madi Moss APRN.BATCH STILL OPERATOR [address] [place] [address] [facility] [address] [place] [address] Referral ID Status Reason Start Date Expiration Date Visits Requested Visits Authorized [id number] Authorized Auto-Generat ed Referral 09/25/2024 09/25/2025 1 1 * Diagnostic Procedure Only (Routine) - New Request Specialty Diagnoses / Procedures Referred By Contac t Referred To Contact [facility] Diagnoses Less than 8 weeks gestation of with uncertain dates in first trimester Procedures OBSTETRIC ULTRASOUND WHI US PREG UTERUS AFTER 1ST TRIMEST GESTATION Madi Moss APRN.BATCH STILL OPERATOR [address] [place] [address] [facility] [address] [place] [address] Referral ID Status Reason Start Date Expiration Date Visits Requested Visits Authorized [id number] New Request Auto-Generat ed Referral 09/25/2024 09/25/2025 1 1 [facility] for visit Narrative* Diagnostic Procedure Only (Urgent) - Closed Specialty Diagnoses / Procedures Referred By Contac t Referred To Contact XR IMAGING Diagnoses Pain Procedures XR TOE AP/LAT/OBL RIGHT RADEX TOE MINIMUM 2 VIEWS Sophy Ulloa APRN.BATCH STILL OPERATOR [address] [place] [address] [place] [address] Referral ID Status Reason Start Date Expiration Date V isits Requested Visits Authorized [id number] Closed Auto-Generate d Referral 10/30/2023 11/28/2024 1 1 [facility] for visit Narrative* Diagnostic Procedure Only (Routine) - Closed Specialty Diagnoses / Procedures Referred By Meseret t Referred To Contact [facility] Diagnoses 28 weeks gestation of (HCC) Obesity affecting in second trimester, unspecified obesity type (HCC) Procedures OBSTETRIC ULTRASOUND WHI US PREG UTERUS AFTER 1ST TRIMEST GESTATION Mayelin Duran APRN.CNM [address] [place] [address] Phone: tel: fax: [facility] [address] [place] [id number] Referral ID Status Reason Start Date Expiration Date V isits Requested Visits Authorized [id number] Closed Auto-Generate d Referral 02/21/2025 02/21/2026 5 1 [facility] Summary Purpose Family History No Family History Records Found Relationship Condition Age at Onset Recorded Date/T marcin father Diabetes mellitus Unknown Not Specified Cardiac disease Unknown mother Gastroesophageal reflux disease Unknown grandfather Cardiac disease Unknown Advance Directives No Advanced Directives Records Found Advance Directive Response Recorded Date/ Time Living Will No April 12, 2021 8:58pm Power of Store Gift Wrap Associate No April 12 8:58pm Advance Directive Response Recorded Date/ Time Living Will No May 25 10:06pm Power of Store Gift Wrap Associate No May 25, 2022 10:06pm Chief Complaint [...] whether serious comorbidity present Procedures CONSULT TO [facility] PRO[facility] OFFICE/OUTPATIENT [facility] MDM 60 MINUTES Madi Moss APRN.BATCH STILL OPERATOR [address] [place] [address] Referral ID Status Reason Start Date Expiration Date Visits Requested Visits Authorized [id number] Authorized PCP Requested Referral Auto-Generate d Referral 05/03/2024 05/03/2025 1 1 Referral ID Status Reason Start Date Expiration Date Visits Requested Visits Authorized [id number] Authorized PCP Requested Referral Auto-Generate d Referral 05/03/2024 05/03/2025 1 1 Specialty Diagnoses / Procedures Referred By Contac t Referred To Contact [facility] Diagnoses Nexplanon removal Procedures NEXPLANON REMOVAL REMOVAL NON-BIODEGRADABLE DRUG DELIVERY IMPLANT Madi Moss APRN.BATCH STILL OPERATOR [address] [place] [address] [facility] [address] [place] [address] Referral ID Status Reason Start Date Expiration Date Visits Requested Visits Authorized [id number] Authorized Auto-Generat ed Referral 05/03/2024 05/03/2025 1 1 Additional Source Comments INFORMATION SOURCE (unrecogn ized section and content) DATE CREATED AUTHOR 04/06/2020 [facility] DATE CREATED AUTHOR AUTHOR'S ORGANIZ ATION 12/25/2021 [facility] DATE CREATED AUTHOR AUTHOR'S ORGANIZ ATION 01/26/2022 [facility] DATE CREATED AUTHOR AUTHOR'S ORGANIZ ATION 06/15/2022 [facility] DATE CREATED AUTHOR AUTHOR'S ORGANIZ ATION 03/14/2025 [facility] DATE CREATED AUTHOR AUTHOR'S ORGANIZ ATION 03/22/2025 [facility] DATE CREATED AUTHOR AUTHOR'S ORGANIZ ATION 04/25/2025 [facility] DATE CREATED AUTHOR AUTHOR'S ORGANIZ ATION 05/07/2025 [facility] Care Teams (unrecognized sec tion and content) Special Day Class Teacher Relationship Specialty Start Date End Date Gabriella Cassidy MD [address] [place] [address] PCP - General Internal Medicine 10/19/21 Special Day Class Teacher Relationship Specialty Start Date End Date Giuliana Bullard APRN.BATCH STILL OPERATOR [address] [place], [place] [id number] PCP - General Family Medicine 10/17/18 Special Day Class Teacher Relationship Specialty Start Date End Date Giuliana Bullard APRN.BATCH STILL OPERATOR [address] [place], [place] [id number] PCP - General Family Medicine 10/17/18 Special Day Class Teacher Relationship Specialty Start Date End Date Giuliana Bullard APRN.BATCH STILL OPERATOR [address], [place] [id number] PCP - General Family Medicine 10/17/18 Special 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 Class 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 Relationship Specialty Start Date End Date Giuliana Bullard APRN.BATCH STILL OPERATOR [address] [place] [address] PCP - General Family Medicine 10/17/18 Special Day Class Teacher Relationship Specialty Start Date End Date Giuliana Bullard A, RECORD TESTER.BATCH STILL OPERATOR [address] [place] [address] PCP - General Family Medicine 10/17/18 Special Day Class Teacher Relationship Specialty Start Date End Date Giuliana Bullard A, RECORD TESTER.BATCH STILL OPERATOR [address] [place] [address] PCP - General Family Medicine 10/17/18 Special Day Class Teacher Relationship Specialty Start Date End Date Giuliana Bullard A, RECORD TESTER.BATCH STILL OPERATOR [address] [place] [address] PCP - General Family Medicine 10/17/18 Special Day Class Teacher Relationship Specialty Start Date End Date Giuliana Bullard A, RECORD TESTER.BATCH STILL OPERATOR [address] [place] [address] PCP - General Family Medicine 10/17/18 Special Day Class Teacher Relationship Specialty Start Date End Date Giuliana Bullard A, RECORD TESTER.BATCH STILL OPERATOR [address] [place] [address] PCP - General Family Medicine 10/17/18 Special Day Class Teacher Relationship Specialty Start Date End Date Giuliana Bullard A, RECORD TESTER.BATCH STILL OPERATOR [address] [place] [address] PCP - General Family Medicine 10/17/18 Special Day Class Teacher Relationship Specialty Start Date End Date Giuliana Bullard A, RECORD TESTER.BATCH STILL OPERATOR [address] [place] [address] PCP - General Family Medicine 10/17/18 Special Day Class Teacher Relationship Specialty Start Date End Date Giuliana Bullard, RECORD TESTER.BATCH STILL OPERATOR [address] [place] [address] PCP - General Family Medicine 10/17/18 Special Day Class Teacher Relationship Specialty Start Date End Date Giuliana Bullard, RECORD TESTER.BATCH STILL OPERATOR [address] [place] [address] PCP - General Family Medicine 10/17/18 Special Day Class Teacher Relationship Specialty Start Date End Date Giuliana Bullard, RECORD TESTER.BATCH STILL OPERATOR [address] [place] [address] PCP - General Family Medicine 10/17/18 Special Day Class Teacher Relationship Specialty Start Date End Date Giuliana Bullard, RECORD TESTER.BATCH STILL OPERATOR [address] [place] [address] PCP - General Family Medicine 10/17/18 Special Day Class Teacher Relationship Specialty Start Date End Date Giuliana Bullard, RECORD TESTER.BATCH STILL OPERATOR [address] [place] [address] PCP - General Family Medicine 10/17/18 Special Day Class Teacher Relationship Specialty Start Date End Date Giuliana Bullard, RECORD TESTER.BATCH STILL OPERATOR [address] [place] [address] PCP - General Family Medicine 10/17/18 Special Day Class Teacher Relationship Specialty Start Date End Date Giuliana Bullard, RECORD TESTER.BATCH STILL OPERATOR [address] [place] [address] PCP - General Family Medicine 10/17/18 Special Day Class Teacher Relationship Specialty Start Date End Date Giuliana Bullard, RECORD TESTER.BATCH STILL OPERATOR [address] [place] [address] PCP - General Family Medicine 10/17/18 Special Day Class Teacher Relationship Specialty Start Date End Date Giuliana Bullard, RECORD TESTER.BATCH STILL OPERATOR [address] [place] [address] PCP - General Family Medicine 10/17/18 Special Day Class Teacher Relationship Specialty Start Date End Date Giuliana Bullard, RECORD TESTER.BATCH STILL OPERATOR [address] [place] [address] PCP - General Family Medicine 10/17/18 Special Day Class Teacher Relationship Specialty Start Date End Date Giuliana Bullard, RECORD TESTER.BATCH STILL OPERATOR [address] [place] [address] PCP - General Family Medicine 10/17/18 Special Day Class Teacher Relationship Specialty Start Date End Date Giuliana Bullard, RECORD TESTER.BATCH STILL OPERATOR [address] [place] [address] PCP - General Family Medicine 10/17/18 Special Day Class Teacher Relationship Specialty Start Date End Date Giuliana Bullard A, RECORD TESTER.BATCH STILL OPERATOR [address] [place] [address] PCP - General Family Medicine 10/17/18 Special Day Class Teacher Relationship Specialty Start Date End Date Giuliana Bullard, RECORD TESTER.BATCH STILL OPERATOR [address] [place] [address] PCP - General Family Medicine 10/17/18 Special Day Class Teacher Relationship Specialty Start Date End Date Giuliana Bullard, RECORD TESTER.BATCH STILL OPERATOR [address] [place] [address] PCP - General Family Medicine 10/17/18 Special Day Class Teacher Relationship Specialty Start Date End Date Giuliana Bullard, RECORD TESTER.BATCH STILL OPERATOR [address] [place] [address] PCP - General Family Medicine 10/17/18 Special Day Class Teacher Relationship Specialty Start Date End Date Giuliana Bullard A, RECORD TESTER.BATCH STILL OPERATOR [address] [place] [address] PCP - General Family Medicine 10/17/18 Special Day Class Teacher Relationship Specialty Start Date End Date Giuliana Bullard A, RECORD TESTER.BATCH STILL OPERATOR [address] [place] [address] PCP - General Family Medicine 10/17/18 Special Day Class Teacher Relationship Specialty Start Date End Date Giuliana Bullard, RECORD TESTER.BATCH STILL OPERATOR [address] [place] [address] PCP - General Family Medicine 10/17/18 Special Day Class Teacher Relationship Specialty Start Date End Date Giuliana Bullard A, RECORD TESTER.BATCH STILL OPERATOR [address] [place] [address] PCP - General Family Medicine 10/17/18 Special Day Class Teacher Relationship Specialty Start Date End Date Giuliana Bullard A, RECORD TESTER.BATCH STILL OPERATOR [address] [place] [address] PCP - General Family Medicine 10/17/18 Special Day Class Teacher Relationship Specialty Start Date End Date Giuliana Bullard A, RECORD TESTER.BATCH STILL OPERATOR [address] [place] [address] PCP - General Family Medicine 10/17/18 Goals [...] or prosecute any alcohol or drug abuse patient.[facility]In the event this information is protected by the Federal Confidentiality of Alcohol and Drug Abuse Patient Records regulations: The Federal rules restrict any use of the information to criminally investigate or prosecute any alcohol or drug abuse patient.[facility] WestIn the event this information is protected by the Federal Confidentiality of Alcohol and Drug Abuse Patient Records regulations: The Federal rules restrict any use of the information to criminally investigate or prosecute any alcohol or drug abuse patient.[facility] WestIn the event this information is protected by the Federal Confidentiality of Alcohol and Drug Abuse Patient Records regulations: The Federal rules restrict any use of the information to criminally investigate or prosecute any alcohol or drug abuse patient.[facility] WestIn the event this information is protected by the Federal Confidentiality of Alcohol and Drug Abuse Patient Records regulations: The Federal rules restrict any use of the information to criminally investigate or prosecute any alcohol or drug abuse patient.[facility] WestIn the event this information is protected by the Federal Confidentiality of Alcohol and Drug Abuse Patient Records regulations: The Federal rules restrict any use of the information to criminally investigate or prosecute any alcohol or drug abuse patient.[facility] WestIn the event this information is protected by the Federal Confidentiality of Alcohol and Drug Abuse Patient Records regulations: The Federal rules restrict any use of the information to criminally investigate or prosecute any alcohol or drug abuse patient.[facility] WestIn the event this information is protected by the Federal Confidentiality of Alcohol and Drug Abuse Patient Records regulations: The Federal rules restrict any use of the information to criminally investigate or prosecute any alcohol or drug abuse patient.[facility] WestIn the event this information is protected by the Federal Confidentiality of Alcohol and Drug Abuse Patient Records regulations: The Federal rules restrict any use of the information to criminally investigate or prosecute any alcohol or drug abuse patient.[facility] WestIn the event this information is protected by the Federal Confidentiality of Alcohol and Drug Abuse Patient Records regulations: The Federal rules restrict any use of the information to criminally investigate or prosecute any alcohol or drug abuse patient.[facility] WestIn the event this information is protected by the Federal Confidentiality of Alcohol and Drug Abuse Patient Records regulations: The Federal rules restrict any use of the information to criminally investigate or prosecute any alcohol or drug abuse patient.[facility] WestIn the event this information is protected by the Federal Confidentiality of Alcohol and Drug Abuse Patient Records regulations: The Federal rules restrict any use of the information to criminally investigate or prosecute any alcohol or drug abuse patient.[facility] WestIn the event this information is protected by the Federal Confidentiality of Alcohol and Drug Abuse Patient Records regulations: The Federal rules restrict any use of the information to criminally investigate or prosecute any alcohol or drug abuse patient.[facility] WestIn the event this information is protected by the Federal Confidentiality of Alcohol and Drug Abuse Patient Records regulations: The Federal rules restrict any use of the information to criminally investigate or prosecute any alcohol or drug abuse patient.[facility] WestIn the event this information is protected by the Federal Confidentiality of Alcohol and Drug Abuse Patient Records regulations: The Federal rules restrict any use of the information to criminally investigate or prosecute any alcohol or drug abuse patient.[facility] WestIn the event this information is protected by the Federal Confidentiality of Alcohol and Drug Abuse Patient Records regulations: The Federal rules restrict any use of the information to criminally investigate or prosecute any alcohol or drug abuse patient.[facility] WestIn the event this information is protected by the Federal Confidentiality of Alcohol and Drug Abuse Patient Records regulations: The Federal rules restrict any use of the information to criminally investigate or prosecute any alcohol or drug abuse patient.[facility] WestIn the event this information is protected by the Federal Confidentiality of Alcohol and Drug Abuse Patient Records regulations: The Federal rules restrict any use of the information to criminally investigate or prosecute any alcohol or drug abuse patient.[facility] WestIn the event this information is protected by the Federal Confidentiality of Alcohol and Drug Abuse Patient Records regulations: The Federal rules restrict any use of the information to criminally investigate or prosecute any alcohol or drug abuse patient.[facility] WestIn the event this information is protected by the Federal Confidentiality of Alcohol and Drug Abuse Patient Records regulations: The Federal rules restrict any use of the information to criminally investigate or prosecute any alcohol or drug abuse patient.[facility] WestIn the event this information is protected by the Federal Confidentiality of Alcohol and Drug Abuse Patient Records regulations: The Federal rules restrict any use of the information to criminally investigate or prosecute any alcohol or drug abuse patient.[facility] WestIn the event this information is protected by the Federal Confidentiality of Alcohol and Drug Abuse Patient Records regulations: The Federal rules restrict any use of the information to criminally investigate or prosecute any alcohol or drug abuse patient.[facility] WestIn the event this information is protected by the Federal Confidentiality of Alcohol and Drug Abuse Patient Records regulations: The Federal rules restrict any use of the information to criminally investigate or prosecute any alcohol or drug abuse patient.[facility] WestIn the event this information is protected by the Federal Confidentiality of Alcohol and Drug Abuse Patient Records regulations: The Federal rules restrict any use of the information to criminally investigate or prosecute any alcohol or drug abuse patient.[facility] WestIn the event this information is protected by the Federal Confidentiality of Alcohol and Drug Abuse Patient Records regulations: The Federal rules restrict any use of the information to criminally investigate or prosecute any alcohol or drug abuse patient.[facility] WestIn the event this information is protected by the Federal Confidentiality of Alcohol and Drug Abuse Patient Records regulations: The Federal rules restrict any use of the information to criminally investigate or prosecute any alcohol or drug abuse patient.[facility] WestIn the event this information is protected by the Federal Confidentiality of Alcohol and Drug Abuse Patient Records regulations: The Federal rules restrict any use of the information to criminally investigate or prosecute any alcohol or drug abuse patient.[facility] WestIn the event this information is protected by the Federal Confidentiality of Alcohol and Drug Abuse Patient Records regulations: The Federal rules restrict any use of the information to criminally investigate or prosecute any alcohol or drug abuse patient.[facility] WestIn the event this information is protected by the Federal Confidentiality of Alcohol and Drug Abuse Patient Records regulations: The Federal rules restrict any use of the information to criminally investigate or prosecute any alcohol or drug abuse patient.[facility] WestIn the event this information is protected by the Federal Confidentiality of Alcohol and Drug Abuse Patient Records regulations: The Federal rules restrict any use of the information to criminally investigate or prosecute any alcohol or drug abuse patient.[facility] WestIn the event this information is protected by the Federal Confidentiality of Alcohol and Drug Abuse Patient Records regulations: The Federal rules restrict any use of the information to criminally investigate or prosecute any alcohol or drug abuse patient.[facility] WestIn the event this information is protected by the Federal Confidentiality of Alcohol and Drug Abuse Patient Records regulations: The Federal rules restrict any use of the information to criminally investigate or prosecute any alcohol or drug abuse patient.[facility] WestIn the event this information is protected by the Federal Confidentiality of Alcohol and Drug Abuse Patient Records regulations: The Federal rules restrict any use of the information to criminally investigate or prosecute any alcohol or drug abuse patient.[facility] WestIn the event this information is protected by the Federal Confidentiality of Alcohol and Drug Abuse Patient Records regulations: The Federal rules restrict any use of the information to criminally investigate or prosecute any alcohol or drug abuse patient.[facility] WestIn the event this information is protected by the Federal Confidentiality of Alcohol and Drug Abuse Patient Records regulations: The Federal rules restrict any use of the information to criminally investigate or prosecute any alcohol or drug abuse patient.[facility] WestIn the event this information is protected by the Federal Confidentiality of Alcohol and Drug Abuse Patient Records regulations: The Federal rules restrict any use of the information to criminally investigate or prosecute any alcohol or drug abuse patient.[facility] WestIn the event this information is protected by the Federal Confidentiality of Alcohol and Drug Abuse Patient Records regulations: The Federal rules restrict any use of the information to criminally investigate or prosecute any alcohol or drug abuse patient.[facility] WestIn the event this information is protected by the Federal Confidentiality of Alcohol and Drug Abuse Patient Records regulations: The Federal rules restrict any use of the information to criminally investigate or prosecute any alcohol or drug abuse patient.[facility] WestIn the event this information is protected by the Federal Confidentiality of Alcohol and Drug Abuse Patient Records regulations: The Federal rules restrict any use of the information to criminally investigate or prosecute any alcohol or drug abuse patient.[facility] WestIn the event this information is protected by the Federal Confidentiality of Alcohol and Drug Abuse Patient Records regulations: The Federal rules restrict any use of the information to criminally investigate or prosecute any alcohol or drug abuse patient.[facility] WestIn the event this information is protected by the Federal Confidentiality of Alcohol and Drug Abuse Patient Records regulations: The Federal rules restrict any use of the information to criminally investigate or prosecute any alcohol or drug abuse patient.[facility] WestIn the event this information is protected by the Federal Confidentiality of Alcohol and Drug Abuse Patient Records regulations: The Federal rules restrict any use of the information to criminally investigate or prosecute any alcohol or drug abuse patient.[facility] WestIn the event this information is protected by the Federal Confidentiality of Alcohol and Drug Abuse Patient Records regulations: The Federal rules restrict any use of the information to criminally investigate or prosecute any alcohol or drug abuse patient.[facility] WestIn the event this information is protected by the Federal Confidentiality of Alcohol and Drug Abuse Patient Records regulations: The Federal rules restrict any use of the information to criminally investigate or prosecute any alcohol or drug abuse patient.[facility] WestIn the event this information is protected by the Federal Confidentiality of Alcohol and Drug Abuse Patient Records regulations: The Federal rules restrict any use of the information to criminally investigate or prosecute any alcohol or drug abuse patient.[facility] WestIn the event this information is protected by the Federal Confidentiality of Alcohol and Drug Abuse Patient Records regulations: The Federal rules restrict any use of the information to criminally investigate or prosecute any alcohol or drug abuse patient.[facility] WestIn the event this information is protected by the Federal Confidentiality of Alcohol and Drug Abuse Patient Records regulations: The Federal rules restrict any use of the information to criminally investigate or prosecute any alcohol or drug abuse patient.[facility] Reason for Visit (unrecogniz ed section and [...] Referred By Meseret bird Referred To Contact [facility] Diagnoses Nexplanon removal Procedures NEXPLANON REMOVAL REMOVAL NON-BIODEGRADABLE DRUG DELIVERY IMPLANT Madi Moss APRN.BATCH STILL OPERATOR [address] [place] [address] [facility] [address] [place] [address] Referral ID Status Reason Start Date Expiration Date V isits Requested Visits Authorized [id number] Closed Auto-Generate d Referral 05/03/2024 05/03/2025 1 1 Reason Comments Nausea Reason Comments OB - N/V Reason Comments Initial OB Visit Reason Comments PRAF Reason Onset Date Comments Refill Request 09/30/2024 Reason Onset Date Comments Refill Request 10/21/2024 Reason Onset Date Comments Care 11/01/2024 Reason Comments US Specialty Diagnoses / Procedures Referred By Contac t Referred To Contact [facility] Diagnoses Encounter for supervision of high risk in first trimester, antepartum Procedures NUCHAL TRANSLUCENCY WHI US NUCHAL TRANSLUCENCY 1ST GESTATION Madi Moss APRN.RUSSELL [address] [place] [address] Phone: tel: fax: [place] [phone] [place] [address] Referral ID Status Reason Start Date Expiration Date V isits Requested Visits Authorized [id number] Closed Auto-Generate d Referral 09/25/2024 09/25/2025 1 [...] Referred By Meseret bird Referred To Contact [facility] Diagnoses Less than 8 weeks gestation of (HCC) with uncertain dates in first trimester (HCC) Procedures OBSTETRIC ULTRASOUND WHI US PREG UTERUS AFTER 1ST TRIMEST 1 GESTATION Madi Moss APRN.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 Reason Onset Date Comments Care 03/07/2025 Reason Comments Care Coordination M-Power SchedulingLM attempt # 1 Reason Onset Date Comments Care 03/20/2025 Reason Comments Care Coordination M-Power SchedulingLM attempt # 2 Reason Onset Date Comments Care 04/04/2025 Reason Comments Refill Request Reason Onset Date Comments Care 04/18/2025 Specialty Diagnoses / Procedures Referred By Contac t Referred To Contact [facility] Diagnoses 28 weeks gestation of (HCC) Obesity affecting in second trimester, unspecified obesity type (HCC) Procedures OBSTETRIC ULTRASOUND WHI US PREG UTERUS AFTER 1ST TRIMEST GESTATION Mayelin Duran APRN.[facility] [address] [place] [address] Phone: tel: fax: [address] [phone] Referral ID Status Reason Start Date Expiration Date V isits Requested Visits Authorized [id number] Closed Auto-Generate d Referral 02/21/2025 02/21/2026 5 1 Reason Onset Date Comments Care 04/28/2025 Specialty Diagnoses / Procedures Referred By Contac t Referred To Contact [facility] Diagnoses Supervision of high risk in second trimester (HCC) Obesity in (HCC) Procedures NON-STRESS TEST NON-STRESS TEST Iveth Walker MD [address] [place] [address] Phone: tel: fax: [address] [phone] Referral ID Status Reason Start Date Expiration Date V isits Requested Visits Authorized [id number] Closed Auto-Generate d Referral 04/18/2025 04/18/2026 5 [...] BE BASED ON THE PRIMARY CLINICAL RECORDS. [employer] provides no warranty or guarantee of the accuracy or completeness of information in this document.
--- NOTE | 2025-05-07 07:33 | PCM.HP.OB ---
HPI - General General Date of Admission: 05/07/25 HPI Narrative MICHAEL PALMA, is a 24 F who presents for scheduled induction of labor. Maternal Data Information AMADOR Calculator Estimated Delivery Date Method Current WG Current Estimate 05/13/25 Manual 39w 1d PFSH PFSH Medical History (Updated 05/07/25 @ 07:46 by Stephanie Cabral) macrosomia depression Autoimmune disease Pre-eclampsia Anxiety Depression Asthma H/O gonorrhea Home Medications ?Medication ?Instructions ?Recorded ?Last Taken ?Type hlkusnhn-ynk-Dx-FA 1 mg 1 tab PO DAILY 05/25/22 05/25/22 08:00 History tablet promethazine 25 mg rectal 25 mg FL Q6H PRN nausea and 09/14/24 Unknown Rx suppository vomiting #12 ea cephalexin 500 mg capsule 500 mg PO Q6 #12 CAPSULES 09/24/24 Unknown Rx ondansetron 4 mg disintegrating 4 mg PO Q8H PRN PRN Nausea #14 tabs 09/24/24 Unknown Rx tablet Allergy/AdvReac Type Severity Reaction Status Date / Time No Known Allergies Allergy Verified 05/07/25 07:33 Family History Father Diabetes Unknown Heart disease Mother GERD (gastroesophageal reflux disease) Grandfather Heart disease Social History household members: significant other current occupational status: employed current occupation: [employer] history of recent travel: No sexually active: Yes Smoking Status: Former smoker Electronic Cigarette Use: with nicotine alcohol intake: current alcohol intake frequency: a few times a month substance use type: marijuana what type of physical activity do you participate in: none seatbelt use: always do you feel safe at home: Yes additional social history: single History 1 Elective abortions Hx Para 1 Spontaneous abortions Hx # Term Pregnancies Ectopic pregnancies Hx # Pregnancies Multiple births # of living children 1 NST FHR Rate Baby A Baseline: 140 Variability:: Moderate Accelerations:: 15 x 15 Decelerations:: None NST Reactive:: Yes FHR Category:: Category I Uterine Activity:: TOCO reading every 2-3 minutes ROS Eyes Eyes: Denies blurry vision, change in vision or spots in vision ENT HEENT: Denies dizziness or headache(s) Cardiovascular Cardiovascular: Denies abdominal pain, chest pain or dyspnea Respiratory/Chest Respiratory/Chest: Denies cough, dyspnea, shortness of breath at rest or shortness of breath with exertion Gastrointestinal Gastrointestinal: Denies abdominal pain, diarrhea or vomiting Genitourinary Genitourinary: Denies change in urinary stream, difficulty urinating or dysuria Musculoskeletal Musculoskeletal: Reports none Integumentary Integumentary: Denies rash Neurologic Neurologic: Denies dizziness, headache(s), memory loss or weakness Psychiatric Psychiatric: Reports none Vital Signs Vital Signs Vital Signs: Weight Weight: 262 lb 5.601 oz Body Mass Index (BMI) 39.9 Physical Exam Const alert, oriented x3 and no apparent distress General Appearance: cooperative Orientation / Consciousness: awake Exam Limitations: no limitations HEENT normocephalic Head and Scalp: normal to inspection Eyes General Eye: normal appearance of both eyes Neck full ROM and no lymphadenopathy Lymph Lymphatic: no lymphadenopathy noted Chest inspection of chest normal Resp normal respiratory effort, normal air movement and clear to auscultation bilaterally Effort and Inspection: able to speak in complete sentences and symmetric chest movement Cardio regular rate and regular rhythm GI normal to inspection, nondistended, normoactive bowel sounds Manual OB Exam: presentation cephalic Back/Spine normal ROM Extremity full ROM and no calf tenderness Skin no rashes or lesions noted General Skin Exam: no breakdown Neuro oriented x3 and CN's II-XII intact bilaterally Psych mental status grossly normal and thought process normal Labs Labs Labs: Blood Type A POSITIVE Antibody Screen NEGATIVE Hct 35.3 % (37-47) L Hgb 11.4 g/dL (12.0-15.0) L Syphilis Total Ab Non-reactive Hep Bs Antigen Non-Reactive (Nonreactive) Hepatitis C Antibody Non-Reactive (Nonreactive) HIV 1&2 Antibody Non-Reactive (Nonreactive) Glucose 1 Hr 50 gm 122 mg/dL (70-140) Rhogam given: No Assessment & Plan (1) 39 weeks gestation of : (2) Encounter for induction of labor: (3) LGA (large for gestational age) fetus: (4) Obesity affecting : (5) History of pre-eclampsia in prior , currently : (6) Anxiety and depression: (7) History of depression: PLAN: Plan Admit to labor and delivery EFW 97% <5000 gm Routine labs GBS negative CE /-2 Tamayo bulb placed without difficulty and filled with 30 cc N/S Pitocin 2 mu/min and continue to increase per policy Pain medications/ epidural when indicated Dr. Saldivar notified of admission and is collaborating physician.
[2025-05-07] MEDS: Lactated Ringers 1,000 ML 50 ML IV (07:45)
[2025-05-07] MEDS: Oxytocin 15 Units/NS 250ml 15 UNITS/250 ML IV.SOLN 2 UNITS IV (08:00)
[2025-05-07 08:15] LABS: Hematocrit 35.3 % (37-47); Hemoglobin 11.4 g/dL (12.0-15.0); Immature Granulocytes Count 0.040 X10^3/uL (0.0-0.0); Mean Corp Hgb Conc 32.3 g/dL (32-36); Mean Corpuscular Volume 81.5 fL (81-99); Mean Platelet Vol. 10.8 fl (6.2-12.0); NRBC Flagged by Analyzer 0 % (0-5); Platelet Count 244 K/mm3 (150-450); RBC Distribution Width CV 15.9 % (11.6-14.6); RBC Distribution Width SD 47.2 fl (35.1-43.9); Red Blood Count 4.33 M/mm3 (4.2-5.4); White Blood Count 9.8 K/mm3 (4.4-11.0)
[2025-05-07] MEDS: 0.9% Normal Saline Single 100 ML IV.SOLN. INTRA-UTER (08:20)
[2025-05-07 08:50] LABS: Syphilis Antibodies Nonreactive (Nonreactive)
[2025-05-07] MEDS: Lactated Ringers 1,000 ML 999 ML IV (09:45)
[2025-05-07] MEDS: fentaNYL-bupivacaine (epidural) 100 ML BAG EPIDURAL ×2 (10:55→14:59)
--- NOTE | 2025-05-07 11:47 | PCM.PN.BLA ---
Progress Note Patient seen at bedside, doing well. Epidural in place. Vaginal exam 3.5 cm/70/-3. AROM performed moderate meconium appreciated. Large amount of fluid.
[2025-05-07] MEDS: Lactated Ringers 1,000 ML 200 ML IV (14:46)
--- NOTE | 2025-05-07 17:46 | OB.VAGDELI_ITS ---
Assessment & Plan (1) History of depression: (2) Anxiety and depression: (3) Vaginal delivery: (4) Care and examination of lactating mother: Maternal Data Information AMADOR Calculator Estimated Delivery Date Method Current WG Current Estimate 05/13/25 Manual 39w 1d Vaginal Delivery Maternal Presentation Maternal Presentation: Medically Indicated Induction Maternal Presentation: for scheduled induction of labor Vaginal Delivery Information Procedure Performed: Spontaneous Vaginal Delivery Pre-Procedure Diagnosis: Term gestation, Post-Procedure Diagnosis: , Live infant Findings Description of procedure: Patient progressed to complete dilation. With good maternal effort, head delivered followed by anterior shoulder and remainder of body without any force, delay, or traction. Vigorous () was delivered atraumatically and placed on maternal abdomen. Pitocin IV started for active management of the third stage of labor. 3 vessel cord clamped and cut after delay and infant placed immediately skin to skin with patient. Placenta delivered spontaneously and intact. After inspection, vagina and perineum are intact. Vaginal sweep performed. Fundus is firm 2 below U and bleeding is hemostatic. Sponge and sharps counts correct. Patient and bonding well at this time. () notified of delivery. Routine post orders placed. Presentation: Vertex Placental Delivery Description: Spontaneous Placenta Disposition: [facility] Specimen collected: No Cord Vessel Description: 3 Vessels Cord Entanglement: None Nuchal Cord Compression: Without compression Delayed Cord Clamping: Yes Title Agent consulting services associate: No Post Vaginal Deli Medications given after delivery: IV Pitocin Episiotomy Description: None Laceration: None Complication Complications: No
--- NOTE | 2025-05-07 17:46 | EX.PCM.OBVAG ---
Assessment & Plan (1) History of depression: (2) Anxiety and depression: (3) Vaginal delivery: (4) Care and examination of lactating mother: Maternal Data Information AMADOR Calculator Estimated Delivery Date Method Current WG Current Estimate 05/13/25 Manual 39w 1d Vaginal Delivery Maternal Presentation Maternal Presentation: Medically Indicated Induction Maternal Presentation: for scheduled induction of labor. Type of Induction: Pitocin, Tamayo Bulb and Amniotomy Vaginal Delivery Information Procedure Performed: Spontaneous Vaginal Delivery Pre-Procedure Diagnosis: Term gestation, Induction of labor Post-Procedure Diagnosis: , Live male Type of anesthesia: Epidural Estimated Blood Loss: 200 Time of Delivery: 17:36 Findings Description of procedure: Patient progressed to complete dilation. With good maternal effort, head delivered followed by anterior shoulder and remainder of infant body without any force, delay, or traction. Loose nuchal cord easily reduced. Vigorous male was delivered atraumatically and placed on maternal abdomen. Pitocin IV started for active management of the third stage of labor. 3 vessel cord clamped and cut after delay and infant placed immediately skin to skin with patient. Placenta delivered spontaneously and intact. After inspection, vagina and perineum are intact. Vaginal sweep performed. Fundus is firm 2 below U and bleeding is hemostatic. Sponge and sharps counts correct. Patient and infant bonding well at this time. Dr. Saldivar notified of delivery. Routine post orders placed. Presentation: Vertex Amniotic Membrane Rupture Type: Artificial Amniotic Fluid Description: Moderate meconium Placental Delivery Description: Spontaneous Placenta Disposition: [facility] Specimen collected: No Cord Vessel Description: 3 Vessels Cord Entanglement: None and Around neck x 1, loose (CAB x 1 loose) Nuchal Cord Compression: Without compression Infant A Gender: Male (1 minute): 8 (5 minute): 9 Delayed Cord Clamping: Yes Watch Repairer summons server: No Post Vaginal Deli Medications given after delivery: IV Pitocin Episiotomy Description: None Laceration: None Complication Complications: No
[2025-05-07] MEDS: Oxytocin 15 Units/NS 250ml 15 UNITS/250 ML IV.SOLN 83 UNITS IV (18:00)
[2025-05-08] VITALS: BP 124/80; PULSE 89; RESP 17; TEMP 36.3; O2SAT 99
[2025-05-08 03:53] VITALS: BP 130/83; PULSE 66; RESP 16; TEMP 36.4; O2SAT 99
[2025-05-08 08:15] VITALS: BP 128/91; PULSE 81; RESP 16; TEMP 36.3; O2SAT 100
[2025-05-08] MEDS: Senna/Docusate Sodium 1 Tablet PO (08:30)
--- NOTE | 2025-05-08 08:31 | PCM.PN.OB ---
Subjective Subjective Patient is doing well. Pain is controlled. She is ambulating and voiding without difficulty. She denies headache, chest pain, shortness of breath, leg pain, lightheadedness, dizziness. She is tolerating a diet without nausea or vomiting. She would like to go home today. Objective Data Objective Data Vital Signs: Vital Signs Temp Pulse Resp BP Pulse Ox O2 Del Method 97.5 F L 66 16 130/83 H 99 Room Air 05/08/25 03:53 05/08/25 03:53 05/08/25 03:53 05/08/25 03:53 05/08/25 03:53 05/08/25 03:53 Oxygen Delivery Method Room Air Weight: 262 lb 5.601 oz Body Mass Index (BMI) 39.9 Intake & Output: Intake and Output for Last 24 Hours 05/06/25 05/07/25 05/08/25 23:59 23:59 23:59 Intake Total 2998.83 / 2998.83 Output Total 1050 / 1250 200 / 200 Balance 1948.83 / 1748.83 -200 / -200 Lab / Micro Data 05/07/25 07:45 Labs: Laboratory Results - last 24 hr 05/07/25 07:45: Syphilis Total Ab Nonreactive, Blood Type A POSITIVE, Antibody Screen NEGATIVE Physical Exam Const alert and no apparent distress General Appearance: comfortable HEENT normocephalic Resp normal respiratory effort Extremity no calf tenderness Extremity Narrative: 2+ pitting edema Assessment & Plan (1) Care and examination of lactating mother: (2) History of depression: (3) Vaginal delivery: PLAN: PPD#1 s/p . Doing well. Discharge instructions reviewed.
--- NOTE | 2025-05-08 08:35 | PCM.DC ---
Discharge Instructions DC O2, CPAP, BIPAP needs Home O2 Discharge instructions: No Dressing / Incision Discharge Activity: May Drive and May Shower May resume sexual activity in: 6 weeks Weight Bearing Status: Weight bearing as tolerated Lifting Restrictions: nothing heavier than baby Dressing / Incision Call your doctor if you observe: Fever of 101 or Higher, Using more than 1 pad per hour, Shortness of breath, Dizziness, Swelling in the ankles (worsening), Chest pain, Increased palpitations (irregular heartbeat), Calf discomfort, Uncontrolled pain and - (severe headaches, vision changes) Follow Up Care Please Follow Up With: Mayelin Duran CNM When: 1 week early visit and blood pressure check 6 week exam Test Results: Test results from this visit will be discussed in further detail at your follow-up appointment, if applicable. Discharge Plan Admission Admit Date/Time: 05/07/25 07:12 Primary Reason for Your Visit: delivery Attending Provider: Mayelin Duran Primary Care Provider: Giuliana Bullard COMPENSATION AND BENEFITS ADMINISTRATOR Instructions Patient Instructions: After a Vaginal Delivery (WP) Discharge Orders/Prescriptions Prescriptions: Continued xwgcgomw-qsy-Uz-FA 1 mg Tablet 1 tab PO DAILY Discontinued promethazine 25 mg suppository 25 mg DE Q6H PRN (Reason: nausea and vomiting) Qty: 12 0RF ondansetron 4 mg tablet,disintegrating 4 mg PO Q8H PRN PRN (Reason: Nausea) Qty: 14 0RF Referrals / Follow Up: Giuliana Bullard COMPENSATION AND BENEFITS ADMINISTRATOR, COMPENSATION AND BENEFITS ADMINISTRATOR-C [Primary Care Provider] - Disposition Disposition (needs filled in before D/C Order can be placed): Home, Self Care
[2025-05-08 11:20] VITALS: BP 133/74; PULSE 72; RESP 16; TEMP 36.3; O2SAT 100
[2025-05-08 16:01] VITALS: BP 123/76; PULSE 65; RESP 16; TEMP 36.4; O2SAT 100
--- NOTE | 2025-05-09 09:26 | CASEMGMT ---
Social Work Assessment Labor and Delivery Unit Patient Address: [address] [place] [address] Phone number: [phone] Date of Referral: 05/08/25 Time of Referral:? [phone] Referred By: Mayelin Duran Date of Intervention: ??05/08/25 Time of Intervention:? 1429 Reason for Referral:? hx depression Sw completed chart review and notes sw consult due to maternal mental health history. Sw presented to bedside and introduced self to mother of baby (MOB- Raisa) and father of baby (FOB- Pato). Sw explained reason for sw involvement and completed psychosocial assessment. History obtained from: medical records, MOB and FOB Household composition: Currently residing in the family home is MOB, FOB, their 2 year old daughter, Oriana and baby when ready for discharge. Parents state that they moved recently and are now living in a better environment with a bigger home and more outdoor space. Parents state that their home is safe and secure. Patient's parent/guardian status:? ?MOB and FOB have been together for 5 years after meeting each other at a high school graduation republican with mutual friends. baby is second baby for parents together. No reports concerning of domestic violence or intimate partner violence. Medical History: ?TASHI is 24 year old female who is 2, para 1- now following labor and delivery of . MOB received routine care during with [facility] beginning in first trimester. MOB presented to hospital for induction of labor and delivered baby via spontaneous vaginal delivery on 05/07/25. Baby boy, named Marlo Keenan, was born weighing 9lb 4oz with apgars of 8 and 9 at one and five minutes of life, respectfully. MOB is breast feeding and baby will be followed by Dr. Cross for pediatrics. Educational Status:?Both parents graduated from high school, both parents can read, write and understand what is read. Financial Status: FOB is gainfully employed outside of the home working maintenance for a company. MOB is a stay at home mom. Infant Supplies:?? All necessary baby supplies obtained, including: car seat, safe sleep space, clothes, diapers and wipes. Childcare/Caregiver(s):?MOB will be the primary caregiver along with FOB when he is not working. Transportation:?? Both parents have their drivers license and reliable means of transportation. NO barriers. Programs/Agencies Involved: Family is connected to resources provided through [employer] including: insurance ([employer]), food benefits and WIC. ??? Children Services/Legal Issues:??No prior involvement with children services, no issues or concerns warranting referral to be made at this time. ? Behavioral Health Issues: ??Mental Health History: SHANIA denies mental health history. TASHI states that she has been diagnosed with anxiety and depression. MOB states that she also experienced depression following the delivery of her daughter. TASHI states that when her daughter was born they were living in an apartment building that she did not like living in, she felt isolated and alone. TASHI states that now they are living in a new house with more space inside and a yard. TASHI states that both of them now have vehicles and that will give her the freedom to go and do things during the day when SHANIA is at work if she wants to. TASHI states that when she recognized that she was struggling with her mental health she talked to SHANIA, her mom and some of her friends. TASHI states that another thing that was hard was that she was a young first time mom, and while she was at home sleep deprived, all of her friends were going out and having fun and she felt like she was missing out. TASHI states that now she feels like she has matured a lot and is thankful for the blessings that she has, and does not feel like she is missing out. ?? Substance Use History:? Parents deny substance use prior to and during . ? Family History:??SHANIA states that his mom has addiction issues, historically and current. SHANIA states that on the day of the baby's his mom had to go to court and was sentenced due to drug related charges. Sw and parents discussed using healthy and safe coping mechanisms opposed to seeking comfort from using drugs or alcohol. SHANIA states that he has learned from the examples that his mom set and would never do to his children what his mom did to him. ??? Drug Screens: No drug screens observed while completing chart review. ?? Family/Social Stressors:? MOB and SHANIA deny any issues, concerns or stressors at this time. Support Systems: TASHI states that SHANIA is her biggest support person along with her mom. Depression/Shaken Baby/Safe Sleeping:? Sw educated MOB and FOB on signs and symptoms of baby blues and depression and anxiety. MOB states that she feels more knowledgeable about what to be on the lookout for going into this period opposed to her first one. MOB states that she had no clue what to expect following the delivery of her first baby. MOB states that now that she has experienced she feels more ready to acknowledge symptoms and more ready to talk about them instead of stuffing them down and feeling guilty for feeling down or sad. MOB states that when she experienced depression in the past she felt down, tearful, emotional and sad, and because it was during a time when she thought she was supposed to be happy and everything was supposed to be perfect she did not want to acknowledge that she felt the way she did. MOB states that now she knows it is important to talk about any feelings that she may be experiencing. TASHI is not currently connected to a community mental health professional, however she states that she is not opposed to getting connected to one if her OBGYN would recommend it. FOB states that if MOB were to struggle during this period he would be able to recognize that and would know how to help and support her. Isis educated parents on shaken baby prevention and ABCs of safe sleep. Parents express understanding. ASSESSMENT:? MOB and baby admitted following labor and delivery. MOB with mental health history positive for anxiety, depression and depression. MOB and FOB state that they both feel more prepared emotionally and mentally going into this period than they did with their first baby. MOB states that she had a really amazing labor and delivery experience, and is thankful that baby is here and she and him are doing well. MOB states that she has obtained all necessary baby items and has great natural supports in place. MOB talked openly about her experience with depression when she had her daughter, and the external factors that could have played into that. MOB states that FOB was a good support person during that time, and she knows that he will be this time too if she were to struggle again. MOB states that she does not anticipate struggling with her mental health as she did the first time. MOB states that they have moved and are in a better environment than when she had her first baby, and that was a big part of it. MOB was observed sitting in bed and caring for baby. FOB also observed to hold baby and hold him lovingly and tenderly. Parents looked to feel comfortable holding baby and caring for him. PLAN:? No other services requested or indicated. MOB and baby to be discharged when medically ready. Parents were provided literature regarding: signs and symptoms of baby blues and mood and anxiety disorders, Help Me Grow, shaken baby prevention, ABCs of safe sleep and a list of county resources that are available for them should any needs present themselves. Karina Brewer, [employer], ADJ[employer]CT COMMUNICATIONS FACULTY MEMBER
== END 2025-05-08 18:40 | disposition home or self-care (01) | DRG 560 ==
PROVIDERS: Obstetrics & Gynecology; Admitting Provider Advanced Practice Midwife; PCP Nurse Practitioner Family; Visit Provider Advanced Practice Midwife
DX: O36.63X0 Maternal care for excessive fetal growth, third trimester, not applicable or unspecified (principal); Z37.0 Single live birth; O69.81X0 Labor and delivery complicated by cord around neck, without compression, not applicable or unspecified; O99.214 Obesity complicating childbirth; O77.0 Labor and delivery complicated by meconium in amniotic fluid; Z3A.39 39 weeks gestation of pregnancy; Z87.59 Personal history of other complications of pregnancy, childbirth and the puerperium; Z87.891 Personal history of nicotine dependence
CPT/HCPCS: 59025; 59050; 85025; 86780; 86850; 86900; 86901; 99221; G0378